=== PATIENT | female | born 1940 | race Caucasian/White ===

== ENCOUNTER 2018-01-26 19:42 | Inpatient (IN) | payer MEDICARE, OTHER, SELFPAY ==
[2018-01-26 19:43] VITALS: BP 98/47; PULSE 90; RESP 20; TEMP 38; O2SAT 90; BMI 39.6
[2018-01-26 20:29] VITALS: O2SAT 97
--- NOTE | 2018-01-26 21:18 | EKG12_ITS ---
Test Reason : FEVER Blood Pressure : / mmHG Vent. Rate : 098 BPM Atrial Rate : 098 BPM P-R Int : 186 ms QRS Dur : 096 ms QT Int : 350 ms P-R-T Axes : 056 061 049 degrees QTc Int : 446 ms Normal sinus rhythm Low voltage QRS Borderline ECG Confirmed by ALEKSANDAR PRYOR, BRETT ([id number]), editor map LEON DURAN ([id number]) on 01/28/2018 3:16:36 PM Referred By: DAYNA Confirmed By:BRETT HUERTAS MD
--- NOTE | 2018-01-26 21:20 | ED.VISSUMM ---
- ER Visit Summary Date of Service: 01/26/18 Chief Complaint: Fever, shortness of breath History of Present Illness: The patient is a 77 F presenting with fever, shortness of breath, cough. She has been ill for the past 4-5 days. She has a productive cough. She denies chest pain. On arrival to the ED her pulse ox was low. She has a history of CHF, hypertension, hypercholesterolemia. She is not on home O2. Physical Examination: Vitals are stable. Temperature 100.4. Pulse ox 88-90% on room air. Alert no acute distress. HEENT exam is unremarkable. Neck is supple. Lungs are wheezing bilaterally. Heart is regular rate and rhythm. Abdomen is soft nontender nondistended. Skin is warm and dry. No focal neurologic deficit. Remainder of exam is unremarkable. Emergency Department Course and Treatment: Patient was given albuterol and Atrovent aerosols. She is given Tylenol. Chest x-ray shows mild congestion, cardiomegaly. EKG is sinus rate of 98 with no acute ischemic changes. CBC shows a white count 13.4. Glucose 143. Troponin is negative. BNP 118.1. Lactic acid is normal. Influenza negative. Blood cultures are sent. CTA chest shows no PE or dissection, pneumonia left lower lobe. She is given Rocephin and Zithromax IV. Discussed with Dr. Herr for admission. Disposition: Admission Impression: Community acquired pneumonia, hypoxia This note was generated with [email or web address] dictation software. It may contain incorrect words, spelling, and punctuation that were not noted in review of the chart prior to signing ED Disposition - Plan for ED Patient: Chief Complaint: Fever Referrals: Momo Carvajal Chi, MD [Primary Care Provider] -
[2018-01-26 21:30] VITALS: PULSE 109; RESP 18; O2SAT 96
[2018-01-26] MEDS: Albuterol 2.5 MG/3 ML VIAL.NEB. INHALATION (21:30)
[2018-01-26] MEDS: Ipratropium/Albuterol Sulfate 3 ML AMPUL.NEB INHALATION (21:30)
--- NOTE | 2018-01-26 21:30 | RAD_ITS ---
STUDY: X-RAY CHEST REASON FOR EXAM: Female, 77 years old. Fever, cough TECHNIQUE: Single AP portable view of the chest. COMPARISON: None. FINDINGS: The lungs are expanded. Pulmonary vascular congestion. There is no demonstrated pleural abnormality. There is mild cardiac enlargement. Normal mediastinum and fouzia. Normal visualized pulmonary arteries. Normal visualized aortic arch and descending thoracic aorta. Normal visualized thoracic spine. Normal visualized ribs, clavicles, and shoulders. There is no demonstrated abnormality of the visualized soft tissue structures of the upper abdomen. RAD/Chest 1 View (Portable) IMPRESSION: Mild pulmonary vascular congestion. Mild cardiomegaly. Electronically Signed: Vincent Hidalgo DO at 22:10 EDT , Service support ,
[2018-01-26 21:54] VITALS: O2SAT 97
[2018-01-26 22:02] LABS: Absolute Lymphocyte Count 1.52 X10^3/ul (0.83-4.51); Absolute Neutrophil Count 10.7 X10^3/uL (2.0-7.7); Basophil# 0.02 X10^3/uL; Basophil% 0.1 % (0-1); Eosinophil# 0.17 X10^3/uL; Eosinophils% 1.3 % (0-5); Hematocrit 36.4 % (37-47); Hemoglobin 11.4 g/dl (12.0-15.0); Lymphocyte # 1.52 X10^3/ul (4.0); Lymphocyte % 11.2 % (19-41); Mean Corp Hgb Conc 31.3 g/gl (32-36); Mean Corpuscular Hgb 29.8 pg (27.0-32.0); Mean Platelet Vol. 9.7 fl (6.2-12.0); Monocyte# 1.15 X10^3/uL; Monocyte% 8.5 % (0-10); Neutrophil # 10.67 X10^3/uL (2.7-7.7); Neutrophil % 78.8 % (47-70); Platelet Count 342 K/mm3 (150-450); RBC Distribution Width CV 14.8 % (11.6-14.6); RBC Distribution Width SD 50.2 fl (35.1-43.9); Red Blood Count 3.83 M/mm3 (4.2-5.4); White Blood Count 13.6 K/mm3 (4.4-11.0)
[2018-01-26 22:03] LABS: POSITIVE COUNT NO; POSITIVE DIFFERENTIAL NO; POSITIVE MORPHOLOGY NO
[2018-01-26 22:04] LABS: Color, Urine Straw (Yellow); Glucose, Dipstick Normal (Normal); Ketone-Dipstick Negative (Negative); Leukocyte Esterase-Dipstick 500 /ul (Negative); Nitrite-Dipstick Negative (Negative); Occult Blood-Urine Negative /ul (Negative); Protein-Dipstick 30 mg/dl (Negative); Specific Gravity, Urine 1.005 (1.002-1.030); Urine Bilirubin Dipstick Negative (Negative); Urine Clarity Clear (Clear); Urine Urobilinogen Normal (Normal)
[2018-01-26 22:18] LABS: Anion Gap 9 (5-15); BUN 14 mg/dL (7-18); BUN/Creat Ratio 27.3 RATIO (10-20); Calcium,Total 8.5 mg/dL (8.5-10.1); Chloride 100 mmol/L (98-107); Creatinine, Serum 0.51 mg/dL (0.55-1.02); EST Glomerular Filtration Rate 124 mL/min (>60); Est Glom Filt Rate - Afr Amer 150 mL/min (>60); Estimated Creatinine Clearance 66.13 ml/min; Glucose 143 mg/dL (74-106); Potassium 4.1 mmol/L (3.5-5.1); Sodium Level 138 mmol/L (136-145)
[2018-01-26 22:24] LABS: Lactic Acid 1.1 mmol/L (0.4-2.0)
[2018-01-26 22:35] VITALS: BP 134/114; PULSE 103; RESP 20; O2SAT 95
[2018-01-26] MEDS: Acetaminophen 500 MG Tablet 1000 MG PO (22:46)
[2018-01-26 23:06] LABS: BNP,B-Type NATRIURETIC PEPTIDE 118.1 pg/mL (0-100)
--- NOTE | 2018-01-26 23:19 | CT_ITS ---
STUDY: CTA CHEST REASON FOR EXAM: Female, 77 years old. Cough and fever RADIATION DOSAGE (If Supplied By Facility): CTDIvol = ( 17.57 ) mGy, DLP = ( 628.57 ) mGycm TECHNIQUE: The examination was performed with the intravenous administration of 100ML ml of Isovue 370 contrast material. Post-processing of the angiographic images was performed, with multiplanar reformation and 3D reconstruction. Individualized dose optimization techniques were used for this CT. COMPARISON: None. FINDINGS: Normal enhancement of the main pulmonary artery and right and left pulmonary arteries. Normal enhancement of the bilateral peripheral pulmonary arteries. There is no demonstrated pulmonary embolism. Normal thoracic aorta and visualized great vessels. There is no demonstrated aortic dissection. Normal heart and pericardium. Normal mediastinum. Normal hilar regions. Normal visualized trachea and bronchi. There is partial consolidation of the left lung lower lobe suggesting pneumonia. Segmental atelectasis are noted in both lungs. Normal pleura. Normal chest wall structures. There are degenerative changes of thoracic spine. There is mild fatty infiltration of the liver.. CT/CTA Chest W/WO Contrast IMPRESSION: No demonstrated pulmonary embolism or arterial dissection. Pneumonia in the left lower lobe. Electronically Signed: Bonnie Torres MD at 1:35 EDT Tel , Service support ,
[2018-01-26 23:22] VITALS: BP 118/71; PULSE 108; RESP 25; O2SAT 95
[2018-01-27] VITALS (18 sets, daily range): BP systolic 84–138; BP diastolic 36–65; PULSE 79–99; RESP 16–25; TEMP 36.8–37.1; O2SAT 92–98; BMI 41.1; BMI 41.2
--- NOTE | 2018-01-27 01:49 | PCM.HP.STD ---
Problem List (1) HTN (hypertension) Status: Chronic Qualifiers: Hypertension type: essential hypertension Qualified Code(s): I10 - Essential (primary) hypertension (2) HLD (hyperlipidemia) Status: Chronic Qualifiers: Hyperlipidemia type: unspecified Qualified Code(s): E78.5 - Hyperlipidemia, unspecified (3) Arthrogryposis Status: Chronic (4) Single kidney Status: Chronic (5) Hypoxia Status: Acute (6) Pneumonia Status: Acute Qualifiers: Pneumonia type: due to unspecified organism Laterality: left Lung location: lower lobe of lung Qualified Code(s): J18.1 - Lobar pneumonia, unspecified organism (7) Sepsis Status: Acute Qualifiers: Sepsis type: sepsis due to unspecified organism Qualified Code(s): A41.9 - Sepsis, unspecified organism (8) Morbid obesity with BMI of 40.0-44.9, adult Status: Chronic History of Present Illness Date of Admission: 01/27/18 Chief Complaint: Cough, Fever, Dyspnea The patient is a 77 y/o F w/ PMHx: HTN, HLD, Morbid Obesity, Arthrogryposis w/ usage of BL LE braces and several BL UE and BL LE surgeries in her youth, Single kidney s/p nephrectomy who presents to the [facility] ED on 01/27/18 w/ ongoing fever, chills, dyspnea, minimally productive cough as well as sore throat x 3-4 days, not improving with OTC flu and cold regimen. In the ED work-up included T 100.4--> 98.7, HR 109-->89, BP 98/47, initially 88-89% on RA-->97% on 3L NC, RR 20s, CBC w/ WBC 13.6, Hgb 11.4, Plts 342 with L shift, BMP w/ BUN/Cr 14/0.51, glucose 143, trop < 0.02, LA 1.1, BNP 118.1, UA not marked, EKG w/ SR, CXR with ? congestion, CTPA w/ no acute PE but noted LLL PNA. In the ED patient administered NS, rocephin, azithromycin, duoneb, albuterol, tylenol. Past Medical History Past Medical History (Chronic Problems): Chronic Problems HTN (hypertension) (Chronic) HLD (hyperlipidemia) (Chronic) Arthrogryposis (Chronic) Single kidney (Chronic) Morbid obesity with BMI of 40.0-44.9, adult (Chronic) Allergies No Known Allergies Allergy (Verified 01/26/18 19:43) Home Medications: Ambulatory Orders Medication Instructions Recorded Aspirin [Aspirin, Baby] 81 mg PO DAILY@0800 07/12/15 Atorvastatin Calcium [Lipitor] 80 mg PO QHS 07/12/15 Calcium Carb/Vitamin D 2 tab PO DAILY 07/12/15 [Caltrate-600 With Vit D Tab] Furosemide 40 mg PO DAILY 07/12/15 Lisinopril [Zestril] 5 mg PO 07/12/15 Potassium Chloride [K-Dur] 10 meq PO 4X/DAY 07/12/15 Dibucaine [Nupercainal] 56.7 gm RC 4X/DAY PRN PRN #1 09/28/15 oint...g. Benzonatate [Tessalon Perle] 100 mg PO TID PRN 01/26/18 Surgical History: - - R Nephrectomy, Minor Surgey on the L Kidney, notable BL UE and LE corrective surgeries in her youth. Psychiatric History: No pertinent psych hx FINANCIAL SERVICES EDUCATION CONSULTANT History: No pertinent FINANCIAL SERVICES EDUCATION CONSULTANT history Lives: Spouse/ Significant Other Smoking Status: Never smoker Tobacco Use: Non-smoker Alcohol: None Drugs: None - *Family History Maternal History Items: Heart Disease Paternal History Items: Heart Disease Review of Systems Constitutional: Reports: Anorexia, Chills, Fever, Malaise, Weakness, Fatigue. Denies: Weight Change HEENT: Reports: Nasal Congestion, Post Nasal Drip, Sinus Congestion, Sore Throat. Denies: Head Aches, Sinus Drainage Cardiovascular: Denies: Chest Pain, Palpitations Respiratory: Reports: Cough, Shortness of Breath, Shortness of breath at rest, Shortness of breath upon exertion, Sputum production Gastrointestinal: Denies: Abdominal Pain, Nausea, Vomiting Genitourinary: Denies: Dysuria Musculoskeletal: Reports: Joint Pain, Joint stiffness, Joint swelling, Joint Tenderness, Leg Pain Skin: Denies: Rash, Wounds Neurological: Denies: Numbness, Tingling, Focal weakness Psychiatric: Denies: Anxiety, Depression, Homicidal Ideations, Suicidal Ideations Hematologic/ Lymphatic: Reports: Anemia. Denies: Easy Bruising, Easy Bleeding VTE Information - Inpt Only VTE Present on Admission: No VTE Mechan Device Prophylaxis: SCD's VTE Pharm Prophylaxis ordered?: Yes Patient Problems: Active and Suspected Problems Hypoxia (Acute) Pneumonia (Acute) Sepsis (Acute) Subjective: Seated upright in the ED bed, NAD. Objective: Physical Examination: General: awake, alert, oriented x 3 and cooperative, seated upright in the ED bed in no apparent distress. Skin: normal color, turgor, no icterus, cyanosis. HEENT: AT/NC, EOMI, PERRLA, dry MM, no carotid bruits or JVD noted. Lungs: Diminished BS BL, > L, occasional soft expiratory wheeze, mild effort. Heart: Tachycardic with regular rhythm; no gallop, rub audible. Abdomen: soft, morbidly obese, NTTP, ND, normal BS, no HSM; however, habitus makes examination difficult. Extremities: no cyanosis, clubbing, BL LE and UE congenital deformities, s/p several surgical interventions. Neurological: patient awake, alert, oriented x 3; cognitive function intact; pupils equally reactive to light and accomodation; cranial nerves II-XII grossly normal, moving BL LE, severe limitations BL UE with severe BL LE and UE deformities, strength severely globally decreased secondary to acute presentation. Psychiatric: affect appears fatigued, no acute evidence of depressive or anxiety feelings. - Physical Exam Vital Signs Temp Pulse Resp BP Pulse Ox 98.7 F 92 25 H 109/60 96 01/27/18 00:17 01/27/18 01:13 01/27/18 01:13 01/27/18 01:13 01/27/18 01:13 Oxygen Flow Rate (L/min) 2 Oxygen Delivery Method Nasal Cannula Weight: 190 lb Body Mass Index (BMI) 39.6 Microbiology Past 72 Hours 01/26/18 21:24 Influenza Types A,B Direct FA (THERESA) - Final Mucosa - Nose Laboratory Tests Past 24 Hrs 01/26/18 01/26/18 01/26/18 21:15 21:45 21:45 WBC 13.6 H RBC 3.83 L Hgb 11.4 L Hct 36.4 L MCV 95.0 MCH 29.8 MCHC 31.3 L RDW 14.8 H RDW Differential 50.2 H Plt Count 342 MPV 9.7 Immature Gran % (Auto) 0.100 Neut % (Auto) 78.8 H Lymph % (Auto) 11.2 L Sum[place] % (Auto) 8.5 Eos % (Auto) 1.3 Baso % (Auto) 0.1 Absolute Neuts (auto) 10.7 H Absolute Lymphs (auto) 1.52 Total Counted Not Reportable Sodium 138 Potassium 4.1 Chloride 100 Carbon Dioxide 29.0 Anion Gap 9 BUN 14 Creatinine 0.51 L Estim Creat Clear Calc 66.13 Est GFR (MDRD) Af Amer 150 Est GFR (MDRD) Non-Af 124 BUN/Creatinine Ratio 27.3 H Glucose 143 H Lactic Acid Calcium 8.5 Troponin I < 0.02 B-Natriuretic Peptide Urine Color Straw Urine Clarity Clear Urine pH 7.0 Ur Specific [place] 1.005 Urine Protein 30 H Urine Glucose (UA) Normal Urine Ketones Negative Urine Occult Blood Negative Urine Nitrite Negative Urine Bilirubin Negative Urine Urobilinogen Normal Ur Leukocyte Esterase 500 H 01/26/18 01/26/18 21:45 21:45 WBC RBC Hgb Hct MCV MCH MCHC RDW RDW Differential Plt Count MPV Immature Gran % (Auto) Neut % (Auto) Lymph % (Auto) Sum[place] % (Auto) Eos % (Auto) Baso % (Auto) Absolute Neuts (auto) Absolute Lymphs (auto) Total Counted Sodium Potassium Chloride Carbon Dioxide Anion Gap BUN Creatinine Estim Creat Clear Calc Est GFR (MDRD) Af Amer Est GFR (MDRD) Non-Af BUN/Creatinine Ratio Glucose Lactic Acid 1.1 Calcium Troponin I B-Natriuretic Peptide 118.1 H Urine Color Urine Clarity Urine pH Ur Specific Roosevelt Urine Protein Urine Glucose (UA) Urine Ketones Urine Occult Blood Urine Nitrite Urine Bilirubin Urine Urobilinogen Ur Leukocyte Esterase Assessment/Plan Active and Suspected Problems Hypoxia (Acute) Pneumonia (Acute) Sepsis (Acute) The patient is a 77 y/o F w/ PMHx: HTN, HLD, Morbid Obesity, Arthrogryposis w/ usage of BL LE braces and several BL UE and BL LE surgeries in her youth, Single kidney s/p nephrectomy who presents to the [facility] ED on 01/27/18 w/ ongoing fever, chills, dyspnea, minimally productive cough as well as sore throat x 3-4 days, not improving with OTC flu and cold regimen. (1) Hypoxia, Sepsis secondary to Community Acquired: CTPA in the ED w/ LLL PNA. Admission CBC w/ WBC 13.6 with L shift. Will admit to PCU, maintain on oxygen with wean as tolerated to room air, continue ATC duonebs, PRN albuterol, maintained on IV Rocephin and Azithromycin, HOB, IS parameters w/ pending sputum cultures and urine antigens. Bld cx x 2 obtained in the ED. Will need to obtain oxygenation trial for discharge planning once appropriate. PT, OT, CM consultations given underlying co-morbidities which may complicate her recovery. (2) Hyperglycemia: Admission glucose 143, HgbA1c pending. (3) Hypertension: Maintain on home regimen lisinopril, lasix with hold parameters, PRN hydralazine. (4) Hyperlipidemia: Maintain on home statin regimen. (5) Single kidney Status s/p Prior R Nephrectomy: Admission BUN/Cr 14/0.51, trend, noted history of surgery on her L kidney as well. (6) Arthrogryposis: Usage of BL LE braces and several BL UE and BL LE surgeries in her youth, maintain on fall precautions, position changes frequently, PT and OT, CM consultations for discharge planning. (7) Morbid Obesity: Weight loss and lifestyle changes encouraged, nutrition consulted. (8) DVT Prophylaxis: SCDs, renally dosed lovenox. Code Visit Inpatient E&M: 18815 Init Hosp L3
[2018-01-27] MEDS: Ceftriaxone 1 GM/50 ML BAG IV (02:25)
[2018-01-27 04:24] LABS: Absolute Lymphocyte Count 1.45 X10^3/ul (0.83-4.51); Absolute Neutrophil Count 7.3 X10^3/uL (2.0-7.7); Basophil# 0.02 X10^3/uL; Basophil% 0.2 % (0-1); Eosinophil# 0.09 X10^3/uL; Eosinophils% 0.9 % (0-5); Hematocrit 32.2 % (37-47); Hemoglobin 10.1 g/dl (12.0-15.0); Lymphocyte # 1.45 X10^3/ul (4.0); Lymphocyte % 14.6 % (19-41); Mean Corp Hgb Conc 31.4 g/gl (32-36); Mean Corpuscular Hgb 30.1 pg (27.0-32.0); Mean Corpuscular Volume 96.1 fL (81-99); Mean Platelet Vol. 9.7 fl (6.2-12.0); Monocyte# 1.02 X10^3/uL; Monocyte% 10.3 % (0-10); Neutrophil # 7.31 X10^3/uL (2.7-7.7); Neutrophil % 73.8 % (47-70); Platelet Count 309 K/mm3 (150-450); RBC Distribution Width CV 14.5 % (11.6-14.6); RBC Distribution Width SD 48.2 fl (35.1-43.9); Red Blood Count 3.35 M/mm3 (4.2-5.4); White Blood Count 9.9 K/mm3 (4.4-11.0)
[2018-01-27 04:27] LABS: POSITIVE COUNT NO; POSITIVE DIFFERENTIAL NO; POSITIVE MORPHOLOGY NO
[2018-01-27 04:53] LABS: Magnesium 2.2 mg/dL (1.6-2.6)
[2018-01-27 05:12] LABS: Anion Gap 7 (5-15); BUN 15 mg/dL (7-18); BUN/Creat Ratio 30.9 RATIO (10-20); Calcium,Total 8.1 mg/dL (8.5-10.1); Chloride 99 mmol/L (98-107); Creatinine, Serum 0.49 mg/dL (0.55-1.02); EST Glomerular Filtration Rate 132 mL/min (>60); Est Glom Filt Rate - Afr Amer 160 mL/min (>60); Glucose 137 mg/dL (74-106); Potassium 3.8 mmol/L (3.5-5.1); Sodium Level 136 mmol/L (136-145)
[2018-01-27] MEDS: 0.9% Normal Saline 1,000 ML 125 ML IV (05:30)
[2018-01-27] MEDS: Ipratropium/Albuterol Sulfate 3 ML AMPUL.NEB INHALATION ×4 (06:40→19:29)
[2018-01-27] MEDS: Aspirin 81 MG TAB.CHEW PO (08:15)
[2018-01-27 08:39] LABS: Hemoglobin A1c 5.6 % (4.2-6.3)
[2018-01-27] MEDS: Famotidine 20 MG Tablet PO ×2 (10:32→21:06)
[2018-01-27] MEDS: Lisinopril 5 MG Tablet PO (10:32)
[2018-01-27] MEDS: guaiFENesin 1,200 MG Tablet 1200 MG PO ×2 (10:33→21:06)
[2018-01-27] MEDS: Furosemide 40 MG Tablet PO (10:33)
[2018-01-27] MEDS: BENZOCAINE/MENTHOL 1 LOZENGE MUCOUS MEM (10:52)
--- NOTE | 2018-01-27 13:15 | CASEMGMT ---
See RN CM assessment link. Pt plans to return home. Discussed Home Health, she is not sure she will need. is home to assist and is able to help with ADL's and transportation. Ceci ROMO RN ACM
[2018-01-27] MEDS: Benzonatate 100 MG Capsule 200 MG PO (18:21)
[2018-01-27] MEDS: Atorvastatin Calcium 80 MG Tablet PO (21:06)
[2018-01-28] VITALS (14 sets, daily range): BP systolic 92–107; BP diastolic 46–67; PULSE 81–109; RESP 20–31; TEMP 36.8–36.9; O2SAT 90–98
[2018-01-28] MEDS: Albuterol 2.5 MG/3 ML VIAL.NEB. INHALATION (02:05)
[2018-01-28 04:39] LABS: Absolute Lymphocyte Count 1.21 X10^3/ul (0.83-4.51); Absolute Neutrophil Count 7.5 X10^3/uL (2.0-7.7); Basophil# 0.02 X10^3/uL; Basophil% 0.2 % (0-1); Eosinophil# 0.26 X10^3/uL; Eosinophils% 2.6 % (0-5); Hematocrit 32.1 % (37-47); Lymphocyte # 1.21 X10^3/ul (4.0); Lymphocyte % 12.1 % (19-41); Mean Corp Hgb Conc 31.2 g/gl (32-36); Mean Corpuscular Hgb 30.2 pg (27.0-32.0); Mean Platelet Vol. 9.5 fl (6.2-12.0); Monocyte# 0.97 X10^3/uL; Monocyte% 9.7 % (0-10); Neutrophil # 7.53 X10^3/uL (2.7-7.7); Neutrophil % 75.1 % (47-70); POSITIVE COUNT NO; POSITIVE DIFFERENTIAL NO; POSITIVE MORPHOLOGY NO; Platelet Count 301 K/mm3 (150-450); RBC Distribution Width CV 14.9 % (11.6-14.6); RBC Distribution Width SD 50.7 fl (35.1-43.9); Red Blood Count 3.31 M/mm3 (4.2-5.4)
[2018-01-28] MEDS: Benzonatate 100 MG Capsule 200 MG PO (04:56)
--- NOTE | 2018-01-28 05:55 | RAD_ITS ---
STUDY: X-RAY CHEST REASON FOR EXAM: Female, 77 years old. Cough. TECHNIQUE: Single AP portable view of the chest. COMPARISON: Comparison is made with prior study dated January 26, 2018. FINDINGS: EKG electrodes are seen. Is evidence of vascular congestion and mild CHF. This has progressed as compared to prior study. There is no demonstrated pleural abnormality. There is moderate cardiac enlargement. Normal mediastinum and fouzia. Normal visualized pulmonary arteries. There is atherosclerotic tortuosity of the aortic arch and descending thoracic aorta. Normal visualized thoracic spine. Normal visualized ribs, clavicles, and shoulders. There is no demonstrated abnormality of the visualized soft tissue structures of the upper abdomen. RAD/Chest 1 View (Portable) IMPRESSION: Cardiomegaly and progressive CHF. Electronically Signed: Angel Kyle MD at 8:55 EDT Tel [phone], Service support ,
[2018-01-28] MEDS: Ipratropium/Albuterol Sulfate 3 ML AMPUL.NEB INHALATION ×3 (06:48→15:14)
[2018-01-28] MEDS: Aspirin 81 MG TAB.CHEW PO (08:22)
--- NOTE | 2018-01-28 10:09 | PCM.CONS.GEN ---
Problem List (1) Pneumonia Status: Acute Qualifiers: Pneumonia type: due to unspecified organism Laterality: left Lung location: lower lobe of lung Qualified Code(s): J18.1 - Lobar pneumonia, unspecified organism (2) HTN (hypertension) Status: Chronic Qualifiers: Hypertension type: essential hypertension Qualified Code(s): I10 - Essential (primary) hypertension (3) HLD (hyperlipidemia) Status: Chronic Qualifiers: Hyperlipidemia type: unspecified Qualified Code(s): E78.5 - Hyperlipidemia, unspecified (4) Arthrogryposis Status: Chronic (5) Single kidney Status: Chronic (6) Morbid obesity with BMI of 40.0-44.9, adult Status: Chronic Reason for Consult Date of Consultation: 01/28/18 Reason for Consultation: abnormal chest x-ray History of Present Illness: The patient is a 77 year old F past medical history as below who presented to the ED on 01/26/18 with complaints of fever 100.5?F, increased shortness of breath, and productive cough for the last 4-5 days. Also had a severe sore throat. Denied any chills. Patient reports her cough is chronic, however she did have an increase in sputum production of clear to yellow. Patient states I should have waited to go to see Dr. Carvajal because he typically gives her a steroid injection and taper for this kind of illness, she gets it twice a year. Patient states she got pneumonia secondary to using cough medicine. Patient denies any recent sick contacts, hospitalizations, or steroid bursts. She complains of some intermittent wheezing, but overall her shortness of breath has improved. Patient is debilitated secondary to arthrogryposis and wears leg braces to ambulate. She denies any history of chronic lung disease. She has been a non-smoker her entire life. She has never required pulmonary workup, no previous pulmonary function tests. Patient was placed on an albuterol nebulizer by her PCP to use as needed during illness. She typically uses this throughout the winter. She has been using it every 4-6 hours at home. She denies any other inhaler use. She denies any occupational exposures, no tuberculosis or asbestos. Initial vital signs BP 98/47, pulse 90, RR 20, temp 100.4?F, and 90% on room air. Patient was then 88% on room air and was placed on 3 L of oxygen and recovered to 97%. Initial blood work showing leukocytosis of 13,600, hemoglobin 11.4, normal BUN of 14 and creatinine 0.51. BNP 118. Urinalysis not indicating infection. Initial chest x-ray showed mild pulmonary vascular congestion and mild cardiomegaly. CTA of the chest was obtained to rule out PE, there was no demonstrated PE or arterial dissection, partial consolidation was noted in the left lower lobe. She was placed on antibiotics and given aerosols and Tylenol for her fever. Blood cultures obtained and are pending. Urine strep/Legionella was negative. Respiratory viral panel negative. Preliminary sputum culture showing normal respiratory yesika. Patient is was admitted to the floor for further evaluation and management. The patient has been weaned to room air and is saturating 96%. She denies any current shortness of breath. She has refused physical therapy, states she can walk on her own. Patient has been receiving scheduled DuoNeb aerosols with PRN albuterol. She has tried taking Tessalon Perle for cough. Patient receiving Rocephin for presumed pneumonia. She is on her baseline diuretic therapy. Her sore throat has significantly improved. She would like to have steroids and go home. Past Medical History Past Medical History (Chronic Problems): Chronic Problems HTN (hypertension) (Chronic) HLD (hyperlipidemia) (Chronic) Arthrogryposis (Chronic) Single kidney (Chronic) Morbid obesity with BMI of 40.0-44.9, adult (Chronic) Allergies No Known Allergies Allergy (Verified 01/26/18 19:43) Home Medications: Ambulatory Orders Medication Instructions Recorded Aspirin [Aspirin, Baby] 81 mg PO DAILY@0800 07/12/15 Atorvastatin Calcium [Lipitor] 80 mg PO QHS 07/12/15 Calcium Carb/Vitamin D 2 tab PO DAILY 07/12/15 [Caltrate-600 With Vit D Tab] Furosemide 40 mg PO DAILY 07/12/15 Lisinopril [Zestril] 5 mg PO 07/12/15 Potassium Chloride [K-Dur] 10 meq PO 4X/DAY 07/12/15 Dibucaine [Nupercainal] 56.7 gm RC 4X/DAY PRN PRN #1 09/28/15 oint...g. Benzonatate [Tessalon Perle] 100 mg PO TID PRN 01/26/18 Surgical History: - - R Nephrectomy, Minor Surgey on the L Kidney, notable BL UE and LE corrective surgeries in her youth. Psychiatric History: No pertinent psych hx NETWORK SUPPORT MANAGER History: No pertinent NETWORK SUPPORT MANAGER history Lives: Spouse/ Significant Other Smoking Status: Never smoker Tobacco Use: Non-smoker Alcohol: None Drugs: None - *Family History Maternal History Items: Heart Disease Paternal History Items: Heart Disease Review of Systems Constitutional: Reports: Fever. Denies: Anorexia, Chills Eyes: Denies: Vision Change HEENT: Reports: Post Nasal Drip, Sinus Congestion, Sore Throat. Denies: Difficulty Swallowing, Nasal Congestion, Sinus Drainage Cardiovascular: Reports: Edema - resolved, Orthopnea. Denies: Chest Pain, Chest Tightness, Light Headedness, Palpitations, Paroxysmal Noc. Dyspnea, Syncope Respiratory: Reports: Cough - chronic, Shortness of breath upon exertion. Denies: Hemoptysis, Shortness of breath at rest Gastrointestinal: Denies: Abdominal Pain, Constipation, Diarrhea, Dyspepsia, Hematemesis, Hematochezia, Nausea, Melena, Vomiting Genitourinary: Denies: Dysuria, Hematuria, Nocturia, Retention Musculoskeletal: Reports: Neck Pain - chronic. Denies: Back Pain, Muscle pain Skin: Denies: Dryness, Rash, Wounds Neurological: Reports: Balance problems - chronic. Denies: Change in Speech, Confusion, Difficulty swallowing, Focal weakness, Headaches, Numbness, Tingling, Tremor, Seizures Psychiatric: Denies: Anxiety, Depression Endocrine: Denies: Change in Body Habitus, Polydipsia, Polyuria Hematologic/ Lymphatic: Reports: Anemia. Denies: Adenopathy, Easy Bruising, Easy Bleeding, Hx of blood clot Patient Problems: Active and Suspected Problems Hypoxia (Acute) Pneumonia (Acute) Sepsis (Acute) Subjective: The patient was seen and examined. Her is at the bedside. She denies any current shortness of breath, chest discomfort, dizziness, or pain. She does have a persistent cough, but states this is chronic for her. She is still coughing up some clear to yellow sputum, however this has improved. Objective: Clinical Impression(s) from Imaging Studies Chest X-Ray 01/26/18 21:30 IMPRESSION: Mild pulmonary vascular congestion. Mild cardiomegaly. Electronically Signed: Vincent Hidalog DO at 22:10 EDT , Service support , Chest CTA 01/26/18 23:19 IMPRESSION: No demonstrated pulmonary embolism or arterial dissection. Pneumonia in the left lower lobe. Electronically Signed: Bonnie Torres MD at 1:35 EDT Tel , Service support , Chest X-Ray 01/28/18 05:55 IMPRESSION: Cardiomegaly and progressive CHF. Electronically Signed: Angel Kyle MD at 8:55 EDT Tel [phone], Service support , - Physical Exam General: Alert, Oriented x3, Cooperative, No apparent distress, Well developed, Well nourished HEENT: Atraumatic, PERRLA, Normocephalic Oral: Moist Mucosa, No Gingival or Mucosal Lesions/ Ulcerations, - - Mild thrush Neck: Supple, No JVD, No Nodes, Trachea Midline, - - Congenital spinal deformities, large neck circumference Lungs: Diminished, - - Minimal rhonchi, expiratory wheeze with forced expiration. No dullness to percussion and symmetric expansion. Minimal rales to L base that clear with cough. Cardiovascular: Regular rate, Regular Rhythm, Normal S1, Normal S2, Gallops Abdomen: Bowel Sounds Present, Soft, Non Tender, Obese Extremities: No clubbing, No cyanosis, No edema, Diminished Peripheral Pulses, - - multiple deformities with contracted UEs. Leg shortening Skin: No rashes, No breakdown Musculoskeletal: No Tenderness to Palpation of Joints or Extremities, - - generalized muscle atrophy Lymphatic: No Cervical, Supraclavicular, or Inguinal Adenopathy Neurological: Cranial nerves II-XII grossly intact, Neuro grossly intact, Motor Exam 5/5 strength throughout Psych/Mental Status: Alert and oriented to time, place, person, mood and affect Vital Signs Temp Pulse Resp BP Pulse Ox 98.5 F 96 20 H 94/55 L 96 01/28/18 08:00 01/28/18 08:00 01/28/18 08:00 01/28/18 08:00 01/28/18 08:00 Oxygen Flow Rate (L/min) 2 Oxygen Delivery Method Room Air Weight: 197 lb 1.492 oz Body Mass Index (BMI) 41.1 Intake and Output for Last 24 Hours 01/26/18 01/27/18 01/28/18 23:59 23:59 23:59 Intake Total 2469.5 / 2469.5 240 / 240 Balance 2469.5 / 2469.5 240 / 240 Microbiology Past 72 Hours 01/27/18 15:10 Gram Stain - Final Sputum, Expectorated/Coughed Respiratory Culture - Preliminary Appears to be normal respiratory yesika. Further studies to follow. Laboratory Tests Past 24 Hrs 01/28/18 01/28/18 04:25 04:25 WBC 10.0 RBC 3.31 L Hgb 10.0 L Hct 32.1 L MCV 97.0 MCH 30.2 MCHC 31.2 L RDW 14.9 H RDW Differential 50.7 H Plt Count 301 MPV 9.5 Immature Gran % (Auto) 0.300 Neut % (Auto) 75.1 H Lymph % (Auto) 12.1 L [place] % (Auto) 9.7 Eos % (Auto) 2.6 Baso % (Auto) 0.2 Absolute Neuts (auto) 7.5 Absolute Lymphs (auto) 1.21 Total Counted Not Reportable B-Natriuretic Peptide 65.0 Assessment/Plan Active and Suspected Problems Hypoxia (Acute) Pneumonia (Acute) Sepsis (Acute) RECOMMENDATIONS 1. Wean oxygen supplementation to keep saturations greater than 89%. 2. Encourage incentive spirometer/Acapella 3. Increase activity as tolerated 4. Continue scheduled Duonebs with PRN albuterol 5. Continue antibiotics, await final sputum and blood cultures 6. Ambulatory pulse ox prior to discharge, if able 7. Consider escalating diuretic therapy if respiratory status declines, however caution with single kidney 8. No indication for steroids at this time 9. Patient will likely be ready for discharge in the next 24-48 hours IMPRESSIONS 1. Acute hypoxic respiratory insufficiency secondary to community-acquired pneumonia Improved, patient now maintaining saturations on room air. CTA of the chest 01/26 did show a consolidation in left lower lobe. There is no demonstrated PE or dissection. Repeat chest x-ray 01/28 showed worsening cardiomegaly and progressive CHF. Patient also likely has element of atelectasis/compression secondary to her arthrogryposis/congenital abnormalities. It is difficult for her to take deep breaths, but denies shortness of breath. She has no wheezing except with forced expiration. She is mildly hypotensive, unsure of her baseline blood pressure readings. She has remained afebrile and leukocytosis has resolved. Would continue with antibiotics for infiltrates and scheduled aerosols. Await infectious workup. If able, can obtain ambulatory pulse ox prior to discharge to assess for exertional hypoxia. Supplemental oxygen to keep saturations greater than 89%. 2. Hypertension/hyperlipidemia/arthrogryposis/single kidney/morbid obesity and debility Complicates care, management, recovery, and prognosis. Likely okay to continue home medications. Lovenox and SCDs for DVT prophylaxis. Patient has been refusing physical therapy, states it is complicated for her to ambulate and she would rather do on her own. Thank you for the opportunity to participate in this patient's care, please do not hesitate to contact us with any further questions or concerns. This note was generated with [employer] dictation software. It may contain incorrect words, spelling, and punctuation that were not noted in checking the note before signing.
--- NOTE | 2018-01-28 10:24 | CON.PCM_ITS ---
Problem List (1) Pneumonia Status: Acute Qualifiers: Pneumonia type: due to unspecified organism Laterality: left Lung location: lower lobe of lung Qualified Code(s): J18.1 - Lobar pneumonia, unspecified organism (2) HTN (hypertension) Status: Chronic Qualifiers: Hypertension type: essential hypertension Qualified Code(s): I10 - Essential (primary) hypertension (3) HLD (hyperlipidemia) Status: Chronic Qualifiers: Hyperlipidemia type: unspecified Qualified Code(s): E78.5 - Hyperlipidemia , unspecified (4) Arthrogryposis Status: Chronic (5) Single kidney Status: Chronic (6) Morbid obesity with BMI of 40.0-44.9, adult Status: Chronic Reason for Consult Date of Consultation: 01/28/18 Reason for Consultation: abnormal chest x-ray History of Present Illness: The patient is a 77 year old F past medical history as below who presented to the ED on 01/26/18 with complaints of fever 100.5?F, increased shortness of breath, and productive cough for the last 4-5 days. Also had a severe sore throat. Denied any chills. Patient reports her cough is chronic, however she did have an increase in sputum production of clear to yellow. Patient states I should have waited to go to see Dr. Carvajal because he typically gives her a steroid injection and taper for this kind of illness, she gets it twice a year. Patient states she got pneumonia secondary to using cough medicine. Patient denies any recent sick contacts, hospitalizations, or steroid bursts. She complains of some intermittent wheezing, but overall her shortness of breath has improved. Patient is debilitated secondary to arthrogryposis and wears leg braces to ambulate. She denies any history of chronic lung disease. She has been a non-smoker her entire life. She has never required pulmonary workup, no previous pulmonary function tests. Patient was placed on an albuterol nebulizer by her PCP to use as needed during illness. She typically uses this throughout the winter. She has been using it every 4-6 hours at home. She denies any other inhaler use. She denies any occupational exposures, no tuberculosis or asbestos. Initial vital signs BP 98/47, pulse 90, RR 20, temp 100.4?F, and 90% on room air. Patient was then 88% on room air and was placed on 3 L of oxygen and recovered to 97%. Initial blood work showing leukocytosis of 13,600, hemoglobin 11.4, normal BUN of 14 and creatinine 0.51. BNP 118. Urinalysis not indicating infection. Initial chest x-ray showed mild pulmonary vascular congestion and mild cardiomegaly. CTA of the chest was obtained to rule out PE , there was no demonstrated PE or arterial dissection, partial consolidation was noted in the left lower lobe. She was placed on antibiotics and given aerosols and Tylenol for her fever. Blood cultures obtained and are pending. Urine strep/Legionella was negative. Respiratory viral panel negative. Preliminary sputum culture showing normal respiratory yesika. Patient is was admitted to the floor for further evaluation and management. The patient has been weaned to room air and is saturating 96%. She denies any current shortness of breath. She has refused physical therapy, states she can walk on her own. Patient has been receiving scheduled DuoNeb aerosols with PRN albuterol. She has tried taking Tessalon Perle for cough. Patient receiving Rocephin for presumed pneumonia. She is on her baseline diuretic therapy. Her sore throat has significantly improved. She would like to have steroids and go home. Past Medical History Past Medical History (Chronic Problems): Chronic Problems HTN (hypertension) (Chronic) HLD (hyperlipidemia) (Chronic) Arthrogryposis (Chronic) Single kidney (Chronic) Morbid obesity with BMI of 40.0-44.9, adult (Chronic) Allergies No Known Allergies Allergy (Verified 01/26/18 19:43) Home Medications: Ambulatory Orders Medication Instructions Recorded Aspirin [Aspirin, Baby] 81 mg PO DAILY@0800 07/12/15 Atorvastatin Calcium [Lipitor] 80 mg PO QHS 07/12/15 Calcium Carb/Vitamin D 2 tab PO DAILY 07/12/15 [Caltrate-600 With Vit D Tab] Furosemide 40 mg PO DAILY 07/12/15 Lisinopril [Zestril] 5 mg PO 07/12/15 Potassium Chloride [K-Dur] 10 meq PO 4X/DAY 07/12/15 Dibucaine [Nupercainal] 56.7 gm RC 4X/DAY PRN PRN #1 09/28/15 oint...g. Benzonatate [Tessalon Perle] 100 mg PO TID PRN 01/26/18 Surgical History: - - R Nephrectomy, Minor Surgey on the L Kidney, notable BL UE and LE corrective surgeries in her youth. Psychiatric History: No pertinent psych hx ADMINISTRATIVE COURT JUSTICE History: No pertinent ADMINISTRATIVE COURT JUSTICE history Lives: Spouse/ Significant Other Smoking Status: Never smoker Tobacco Use: Non-smoker Alcohol: None Drugs: None - *Family History Maternal History Items: Heart Disease Paternal History Items: Heart Disease Review of Systems Constitutional: Reports: Fever. Denies: Anorexia, Chills Eyes: Denies: Vision Change HEENT: Reports: Post Nasal Drip, Sinus Congestion, Sore Throat. Denies: Difficulty Swallowing, Nasal Congestion, Sinus Drainage Cardiovascular: Reports: Edema - resolved, Orthopnea. Denies: Chest Pain, Chest Tightness, Light Headedness, Palpitations, Paroxysmal Noc. Dyspnea, Syncope Respiratory: Reports: Cough - chronic, Shortness of breath upon exertion. Denies: Hemoptysis, Shortness of breath at rest Gastrointestinal: Denies: Abdominal Pain, Constipation, Diarrhea, Dyspepsia, Hematemesis, Hematochezia, Nausea, Melena, Vomiting Genitourinary: Denies: Dysuria, Hematuria, Nocturia, Retention Musculoskeletal: Reports: Neck Pain - chronic. Denies: Back Pain, Muscle pain Skin: Denies: Dryness, Rash, Wounds Neurological: Reports: Balance problems - chronic. Denies: Change in Speech, Confusion, Difficulty swallowing, Focal weakness, Headaches, Numbness, Tingling , Tremor, Seizures Psychiatric: Denies: Anxiety, Depression Endocrine: Denies: Change in Body Habitus, Polydipsia, Polyuria Hematologic/ Lymphatic: Reports: Anemia. Denies: Adenopathy, Easy Bruising, Easy Bleeding, Hx of blood clot Patient Problems: Active and Suspected Problems Hypoxia (Acute) Pneumonia (Acute) Sepsis (Acute) Subjective: The patient was seen and examined. Her is at the bedside. She denies any current shortness of breath, chest discomfort, dizziness, or pain. She does have a persistent cough, but states this is chronic for her. She is still coughing up some clear to yellow sputum, however this has improved. Objective: Clinical Impression(s) from Imaging Studies Chest X-Ray 01/26/18 21:30 IMPRESSION: Mild pulmonary vascular congestion. Mild cardiomegaly. Electronically Signed: Vincent Hidalgo DO at 22:10 EDT , Service support , Chest CTA 01/26/18 23:19 IMPRESSION: No demonstrated pulmonary embolism or arterial dissection. Pneumonia in the left lower lobe. Electronically Signed: Bonnie Torres MD at 1:35 EDT Tel , Service support , Chest X-Ray 01/28/18 05:55 IMPRESSION: Cardiomegaly and progressive CHF. Electronically Signed: Angel Kyle MD at 8:55 EDT Tel [phone], Service support , - Physical Exam General: Alert, Oriented x3, Cooperative, No apparent distress, Well developed, Well nourished HEENT: Atraumatic, PERRLA, Normocephalic Oral: Moist Mucosa, No Gingival or Mucosal Lesions/ Ulcerations, - - Mild thrush Neck: Supple, No JVD, No Nodes, Trachea Midline, - - Congenital spinal deformities, large neck circumference Lungs: Diminished, - - Minimal rhonchi, expiratory wheeze with forced expiration. No dullness to percussion and symmetric expansion. Minimal rales to L base that clear with cough. Cardiovascular: Regular rate, Regular Rhythm, Normal S1, Normal S2, Gallops Abdomen: Bowel Sounds Present, Soft, Non Tender, Obese Extremities: No clubbing, No cyanosis, No edema, Diminished Peripheral Pulses, - - multiple deformities with contracted UEs. Leg shortening Skin: No rashes, No breakdown Musculoskeletal: No Tenderness to Palpation of Joints or Extremities, - - generalized muscle atrophy Lymphatic: No Cervical, Supraclavicular, or Inguinal Adenopathy Neurological: Cranial nerves II-XII grossly intact, Neuro grossly intact, Motor Exam 5/5 strength throughout Psych/Mental Status: Alert and oriented to time, place, person, mood and affect Vital Signs Temp Pulse Resp BP Pulse Ox 98.5 F 96 20 H 94/55 L 96 01/28/18 08:00 01/28/18 08:00 01/28/18 08:00 01/28/18 08:00 01/28/18 08:00 Oxygen Flow Rate (L/min) 2 Oxygen Delivery Method Room Air Weight: 197 lb 1.492 oz Body Mass Index (BMI) 41.1 Intake and Output for Last 24 Hours 01/26/18 01/27/18 01/28/18 23:59 23:59 23:59 Intake Total 2469.5 / 2469.5 240 / 240 Balance 2469.5 / 2469.5 240 / 240 Microbiology Past 72 Hours 01/27/18 15:10 Gram Stain - Final Sputum, Expectorated/Coughed Respiratory Culture - Preliminary Appears to be normal respiratory yesika. Further studies to follow. Laboratory Tests Past 24 Hrs 01/28/18 01/28/18 04:25 04:25 WBC 10.0 RBC 3.31 L Hgb 10.0 L Hct 32.1 L MCV 97.0 MCH 30.2 MCHC 31.2 L RDW 14.9 H RDW Differential 50.7 H Plt Count 301 MPV 9.5 Immature Gran % (Auto) 0.300 Neut % (Auto) 75.1 H Lymph % (Auto) 12.1 L [place] % (Auto) 9.7 Eos % (Auto) 2.6 Baso % (Auto) 0.2 Absolute Neuts (auto) 7.5 Absolute Lymphs (auto) 1.21 Total Counted Not Reportable B-Natriuretic Peptide 65.0 Assessment/Plan Active and Suspected Problems Hypoxia (Acute) Pneumonia (Acute) Sepsis (Acute) RECOMMENDATIONS 1. Wean oxygen supplementation to keep saturations greater than 89%. 2. Encourage incentive spirometer/Acapella 3. Increase activity as tolerated 4. Continue scheduled Duonebs with PRN albuterol 5. Continue antibiotics, await final sputum and blood cultures 6. Ambulatory pulse ox prior to discharge, if able 7. Consider escalating diuretic therapy if respiratory status declines, however caution with single kidney 8. No indication for steroids at this time 9. Patient will likely be ready for discharge in the next 24-48 hours IMPRESSIONS 1. Acute hypoxic respiratory insufficiency secondary to community-acquired pneumonia Improved, patient now maintaining saturations on room air. CTA of the chest did show a consolidation in left lower lobe. There is no demonstrated PE or dissection. Repeat chest x-ray 01/28 showed worsening cardiomegaly and progressive CHF. Patient also likely has element of atelectasis/compression secondary to her arthrogryposis/congenital abnormalities. It is difficult for her to take deep breaths, but denies shortness of breath. She has no wheezing except with forced expiration. She is mildly hypotensive, unsure of her baseline blood pressure readings. She has remained afebrile and leukocytosis has resolved. Would continue with antibiotics for infiltrates and scheduled aerosols. Await infectious workup. If able, can obtain ambulatory pulse ox prior to discharge to assess for exertional hypoxia. Supplemental oxygen to keep saturations greater than 89%. 2. Hypertension/hyperlipidemia/arthrogryposis/single kidney/morbid obesity and debility Complicates care, management, recovery, and prognosis. Likely okay to continue home medications. Lovenox and SCDs for DVT prophylaxis. Patient has been refusing physical therapy, states it is complicated for her to ambulate and she would rather do on her own. Thank you for the opportunity to participate in this patient's care, please do not hesitate to contact us with any further questions or concerns. This note was generated with [employer] dictation software. It may contain incorrect words, spelling, and punctuation that were not noted in checking the note before signing.
[2018-01-28] MEDS: Furosemide 40 MG Tablet PO (10:37)
[2018-01-28] MEDS: guaiFENesin 1,200 MG Tablet 1200 MG PO (10:38)
[2018-01-28] MEDS: Lisinopril 5 MG Tablet PO (10:38)
[2018-01-28] MEDS: Ceftriaxone 1 GM/50 ML BAG IV (10:45)
--- NOTE | 2018-01-28 11:47 | NURSING ---
resuming care of patient at 1145 received report from ceci burns
--- NOTE | 2018-01-28 16:08 | PCM.DC ---
- Discharge Diagnoses Current Active Problems: Current Active and Chronic Problems HTN (hypertension) (Chronic) HLD (hyperlipidemia) (Chronic) Arthrogryposis (Chronic) Single kidney (Chronic) Hypoxia (Acute) Pneumonia (Acute) Sepsis (Acute) Morbid obesity with BMI of 40.0-44.9, adult (Chronic) You will use the following diet at home:: No restrictions Your food should be the consistency of: Regular Your liquids should be the consistency of: Regular/Thin Discharge Activity: Return to Normal Activity Weight Bearing Status: - - resume normal activity level Allergies/Adverse Reactions: Allergies No Known Allergies Allergy (Verified 01/26/18 19:43) Medications to take at Discharge Aspirin [Aspirin, Baby] 81 mg PO DAILY@0800 07/12/15 Atorvastatin Calcium [Lipitor] 80 mg PO QHS 07/12/15 Calcium Carb/Vitamin D [Caltrate-600 With Vit D Tab] 2 tab PO DAILY 07/12/15 Furosemide 40 mg PO DAILY 07/12/15 Lisinopril [Zestril] 5 mg PO 07/12/15 Potassium Chloride [K-Dur] 10 meq PO 4X/DAY 07/12/15 Dibucaine [Nupercainal] 56.7 gm RC 4X/DAY PRN PRN #1 oint...g. 09/28/15 Benzonatate [Tessalon Perle] 100 mg PO TID PRN 01/26/18 Amoxicillin/Potassium Clav [Augmentin 875-125 Tablet] 1 ea PO BIDCM #10 tab 01/28/18 The following prescriptions were given: Amoxicillin/Potassium Clav [Augmentin 875-125 Tablet] 1 ea PO BIDCM #10 tab Primary Care Physician: Momo Carvajal Chi, MD [Primary Care Provider] - Please follow up with your Primary Care Physician in: in 1-2 weeks Please Follow Up With: Jerry Walton MD When: in 2 weeks-call for appointment
--- NOTE | 2018-01-30 18:48 | PCM.DC.SUM ---
Discharge Date and Diagnosis - Problem List Patient Problems: Active and Suspected Problems Shortness of breath (Acute) Date of Admission: 01/27/18 Date of Discharge: 01/28/18 - Primary Discharge Diagnosis Active and Suspected Problems #1 acute sepsis secondary to left lower lobe community-acquired tofxlhesr-uepk-acjcjcki bacterial #2 left lower lobe community-acquired goeunchom-oeop-tjzjhqbd bacterial #3 hypoxia secondary to atelectasis and left lower lobe community-acquired pneumonia #4 widespread atelectasis of the lungs #5 hypertension - Secondary Discharge Diagnosis Chronic Problems HTN (hypertension) (Chronic) HLD (hyperlipidemia) (Chronic) Arthrogryposis (Chronic) Single kidney (Chronic) Morbid obesity with BMI of 40.0-44.9, adult (Chronic) Hospital Course and Treatment Operations: None Procedures: None Summary of Care Provided: The patient is a 77 year old F who was seen in the emergency room at [facility] [place] with chief complaint of fever, shortness of breath, and cough over the past several days. Patient states she was coughing up yellow sputum. Evaluation in the emergency room included labs which showed an elevated white count of 13.4, troponin was unremarkable, beta natruretic peptide was 118, lactic acid was normal. Patient has a chest x-ray performed which showed mild congestion and cardiomegaly, CT of the chest did not show a PE but however did show a pneumonia in the left lower lobe. Patient was admitted to the general medical floor for acute sepsis secondary to community-acquired pneumonia suspect suspected to be secondary to gram positive bacteria, she was treated with IV Rocephin and Zithromax. Patient's chest x-ray the following day appeared worse, pulmonary medicine was consulted and felt the patient had an element of atelectasis. Repeat beta natruretic peptide was unremarkable. Patient's pulse ox was noted to be above 90% on room air. On 01/28/18, patient was seen and examined felt in stable condition for discharge home Discharge Activity: Return to Normal Activity Weight Bearing Status: - - resume normal activity level Home Medications: Medications to take at Discharge Aspirin [Aspirin, Baby] 81 mg PO DAILY@0800 07/12/15 Atorvastatin Calcium [Lipitor] 80 mg PO QHS 07/12/15 Calcium Carb/Vitamin D [Caltrate-600 With Vit D Tab] 2 tab PO DAILY 07/12/15 Furosemide 40 mg PO DAILY 07/12/15 Lisinopril [Zestril] 5 mg PO DAILY 07/12/15 Potassium Chloride [K-Dur] 10 meq PO 4X/DAY 07/12/15 Dibucaine [Nupercainal] 56.7 gm RC 4X/DAY PRN PRN #1 oint...g. 09/28/15 Benzonatate [Tessalon Perle] 100 mg PO TID PRN 01/26/18 Amoxicillin/Potassium Clav [Augmentin 875-125 Tablet] 1 ea PO BIDCM #10 tab 01/28/18 Following Prescrptions Were Given to Patient: Amoxicillin/Potassium Clav [Augmentin 875-125 Tablet] 1 ea PO BIDCM #10 tab Primary Care Physician: Momo Carvajal Chi, MD [Primary Care Provider] - Please follow up with your Primary Care Physician in: in 1-2 weeks Please Follow Up With: Jerry Walton MD When: in 2 weeks-call for appointment Disposition: Home Minutes spent on discharge:: 32 Patient Condition:: Stable Medical Necessity - Tobacco Use Smoking Status: Never smoker Tobacco Use: Non-smoker Meaningful Use Info Meaningful Use Diagnoses (Choose all that apply): None applicable Code Visit Inpatient E&M: 04478 Disch Hosp
--- NOTE | 2018-01-30 18:55 | DS.PCM_ITS ---
Discharge Date and Diagnosis - Problem List Patient Problems: Active and Suspected Problems Shortness of breath (Acute) Date of Admission: 01/27/18 Date of Discharge: 01/28/18 - Primary Discharge Diagnosis Active and Suspected Problems #1 acute sepsis secondary to left lower lobe community-acquired pneumonia-gram- positive bacterial #2 left lower lobe community-acquired kpnoyqxjg-ymry-zoxkqobz bacterial #3 hypoxia secondary to atelectasis and left lower lobe community-acquired pneumonia #4 widespread atelectasis of the lungs #5 hypertension - Secondary Discharge Diagnosis Chronic Problems HTN (hypertension) (Chronic) HLD (hyperlipidemia) (Chronic) Arthrogryposis (Chronic) Single kidney (Chronic) Morbid obesity with BMI of 40.0-44.9, adult (Chronic) Hospital Course and Treatment Operations: None Procedures: None Summary of Care Provided: The patient is a 77 year old F who was seen in the emergency room at [facility] with chief complaint of fever, shortness of breath, and cough over the past several days. Patient states she was coughing up yellow sputum. Evaluation in the emergency room included labs which showed an elevated white count of 13.4, troponin was unremarkable, beta natruretic peptide was 118, lactic acid was normal. Patient has a chest x-ray performed which showed mild congestion and cardiomegaly, CT of the chest did not show a PE but however did show a pneumonia in the left lower lobe. Patient was admitted to the general medical floor for acute sepsis secondary to community- acquired pneumonia suspect suspected to be secondary to gram positive bacteria, she was treated with IV Rocephin and Zithromax. Patient's chest x-ray the following day appeared worse, pulmonary medicine was consulted and felt the patient had an element of atelectasis. Repeat beta natruretic peptide was unremarkable. Patient's pulse ox was noted to be above 90% on room air. On , patient was seen and examined felt in stable condition for discharge home Discharge Activity: Return to Normal Activity Weight Bearing Status: - - resume normal activity level Home Medications: Medications to take at Discharge Aspirin [Aspirin, Baby] 81 mg PO DAILY@0800 07/12/15 Atorvastatin Calcium [Lipitor] 80 mg PO QHS 07/12/15 Calcium Carb/Vitamin D [Caltrate-600 With Vit D Tab] 2 tab PO DAILY 07/12/15 Furosemide 40 mg PO DAILY 07/12/15 Lisinopril [Zestril] 5 mg PO DAILY 07/12/15 Potassium Chloride [K-Dur] 10 meq PO 4X/DAY 07/12/15 Dibucaine [Nupercainal] 56.7 gm RC 4X/DAY PRN PRN #1 oint...g. 09/28/15 Benzonatate [Tessalon Perle] 100 mg PO TID PRN 01/26/18 Amoxicillin/Potassium Clav [Augmentin 875-125 Tablet] 1 ea PO BIDCM #10 tab Following Prescrptions Were Given to Patient: Amoxicillin/Potassium Clav [Augmentin 875-125 Tablet] 1 ea PO BIDCM #10 tab Primary Care Physician: Momo Carvajal Chi, MD [Primary Care Provider] - Please follow up with your Primary Care Physician in: in 1-2 weeks Please Follow Up With: Jerry Walton MD When: in 2 weeks-call for appointment Disposition: Home Minutes spent on discharge:: 32 Patient Condition:: Stable Medical Necessity - Tobacco Use Smoking Status: Never smoker Tobacco Use: Non-smoker Meaningful Use Info Meaningful Use Diagnoses (Choose all that apply): None applicable Code Visit Inpatient E&M: 72392 Disch Hosp
== END 2018-01-28 18:00 | disposition home or self-care (01) | DRG 871 ==
LOC: ED 21:23 → ICU 01-27 02:47
PROVIDERS: Admitting Provider Family Medicine; Emergency Provider Emergency Medicine; Family Provider Family Medicine Geriatric Medicine; PCP Family Medicine Geriatric Medicine; Visit Provider Internal Medicine
DX: A41.9 Sepsis, unspecified organism (principal); J15.9 Unspecified bacterial pneumonia; I11.0 Hypertensive heart disease with heart failure; R06.89 Other abnormalities of breathing; I50.9 Heart failure, unspecified; J98.11 Atelectasis; Z68.41 Body mass index [BMI] 40.0-44.9, adult; E66.01 Morbid (severe) obesity due to excess calories; E78.5 Hyperlipidemia, unspecified; Z79.899 Other long term (current) drug therapy; R09.02 Hypoxemia; Q68.8 Other specified congenital musculoskeletal deformities; Z90.5 Acquired absence of kidney
CPT/HCPCS: 71045; 71275; 80048; 81002; 83036; 83605; 83735; 83880; 84484; 85025; 87040; 87070; 87205; 87449; 87633; 87804; 93005; 94640; 94667; 94668; 97802; 99283; J7030; J7040; Q9967; A4216

== ENCOUNTER 2018-01-29 07:15 | Inpatient (IN) | payer MEDICARE, OTHER, SELFPAY ==
[2018-01-29] VITALS (16 sets, daily range): BP systolic 139–164; BP diastolic 72–99; PULSE 89–143; RESP 16–34; TEMP 36.5–36.9; O2SAT 94–99; BMI 44.1; BMI 42.2
--- NOTE | 2018-01-29 07:33 | EKG12_ITS ---
Test Reason : SOB Blood Pressure : / mmHG Vent. Rate : 098 BPM Atrial Rate : 098 BPM P-R Int : 164 ms QRS Dur : 100 ms QT Int : 338 ms P-R-T Axes : 070 090 050 degrees QTc Int : 431 ms Normal sinus rhythm Low voltage QRS Borderline ECG Confirmed by ALEKSANDAR PRYOR, BRETT ([id number]), legal editor LEON DURAN ([id number] on 01/31/2018 1:45:19 PM Referred By: KENNEDY Confirmed By:BRETT HUERTAS MD
--- NOTE | 2018-01-29 07:34 | RAD_ITS ---
STUDY: X-RAY CHEST REASON FOR EXAM: Female, 77 years old. Shortness of breath. TECHNIQUE: AP and lateral views of the chest. COMPARISON: Comparison is made with prior study dated January 28, 2018. FINDINGS: EKG electrodes are seen. Progressive CHF. New atelectasis and/or infiltrate in the right midlung. Blunting of both costophrenic angles. There is moderate cardiac enlargement. Normal mediastinum and fouzia. Normal visualized pulmonary arteries. There is atherosclerotic tortuosity of the aortic arch and descending thoracic aorta. There is a dextroscoliosis of the thoracic spine. There is degenerative osteoarthritis of the bilateral shoulders. There is no demonstrated abnormality of the visualized soft tissue structures of the upper abdomen. RAD/Chest PA and Lateral IMPRESSION: Progressive CHF with atelectasis and/or infiltrate in the right midlung. Electronically Signed: Angel Kyle MD at 9:20 EDT Tel [phone], Service support ,
[2018-01-29] MEDS: Ipratropium/Albuterol Sulfate 3 ML AMPUL.NEB INHALATION (07:44)
[2018-01-29] MEDS: Albuterol 2.5 MG/3 ML VIAL.NEB. INHALATION ×3 (07:56→15:04)
[2018-01-29] MEDS: MethylPREDNISolone 125 MG/2 ML Vial IV (08:10)
[2018-01-29 08:47] LABS: Absolute Neutrophil Count 8.8 X10^3/uL (2.0-7.7); Basophil# 0.02 X10^3/uL; Basophil% 0.2 % (0-1); Eosinophil# 0.17 X10^3/uL; Eosinophils% 1.6 % (0-5); Hematocrit 33.2 % (37-47); Hemoglobin 10.5 g/dl (12.0-15.0); Lymphocyte % 9.4 % (19-41); Mean Corp Hgb Conc 31.6 g/gl (32-36); Mean Corpuscular Hgb 29.7 pg (27.0-32.0); Mean Corpuscular Volume 93.8 fL (81-99); Mean Platelet Vol. 10.4 fl (6.2-12.0); Monocyte# 0.62 X10^3/uL; Monocyte% 5.8 % (0-10); Neutrophil # 8.77 X10^3/uL (2.7-7.7); Neutrophil % 82.7 % (47-70); Platelet Count 295 K/mm3 (150-450); RBC Distribution Width CV 14.6 % (11.6-14.6); RBC Distribution Width SD 47.9 fl (35.1-43.9); Red Blood Count 3.54 M/mm3 (4.2-5.4); White Blood Count 10.6 K/mm3 (4.4-11.0)
[2018-01-29 08:49] LABS: POSITIVE COUNT NO; POSITIVE DIFFERENTIAL NO; POSITIVE MORPHOLOGY NO
[2018-01-29 09:01] LABS: Anion Gap 10 (5-15); BUN 19 mg/dL (7-18); BUN/Creat Ratio 45.8 RATIO (10-20); Calcium,Total 8.3 mg/dL (8.5-10.1); Chloride 101 mmol/L (98-107); Creatinine, Serum 0.42 mg/dL (0.55-1.02); EST Glomerular Filtration Rate 158 mL/min (>60); Est Glom Filt Rate - Afr Amer 192 mL/min (>60); Estimated Creatinine Clearance 73.44 ml/min; Glucose 129 mg/dL (74-106); Potassium 5.6 mmol/L (3.5-5.1); Sodium Level 130 mmol/L (136-145)
--- NOTE | 2018-01-29 09:10 | ED.VISSUMM ---
- ER Visit Summary Date of Service: 01/29/18 Chief Complaint: Shortness of breath History of Present Illness: The patient is a [address] Carvajal. She had been admitted to the hospital and was discharged yesterday on Augmentin. She reports that she felt well when she went home. However, she reports that she went to bed last night and her breathing worsened as the night went on. She has a nebulizer, but last used it prior to bed. She reports that she has severe shortness of breath. Patient reports that she has very little cough that is productive white sputum. She has had subjective fever and chills. She denies any chest pain. She reports that she is nauseated. She has had 2 loose stools this morning. No blood in her stools or black tarry stools. Physical Examination: Vitals: 97.8, 144/82, 107, 34, 75% on room air which is hypoxic. She is 94% on 4 L nasal cannula. General: Well-nourished and well-developed. Head: Normocephalic atraumatic. Neck: Supple, no lymphadenopathy. No JVD. Nontender. Cardiovascular: Regular rate and rhythm. No murmurs. Respiratory: Mild respiratory distress. Moderate wheezing bilaterally with very decreased air movement. Abdominal: Soft, nontender, nondistended, normal bowel sounds. No guarding, rebound, or peritoneal signs. Back: Nontender. Extremities: Nontender, 2+ pitting edema of her lower extremities bilaterally. Skin: Normal color, no rash. Neurologic: Alert and oriented ?3. Cranial nerves II through XII are intact. Normal strength and sensation. Psych: Normal affect. Test Results: EKG is sinus at [address] changes. Initial troponin is 0.21. Chem-7 is more for sodium 130, potassium 5.6, CO2 19, BUN of 19, creatinine 0.42, glucose 129, and calcium of 8.3. CBC is more for an H&H 10.5 and 33.2, 7 neutrophils 83, lymphs at 7 9. PT SALARY AND WAGE ADMINISTRATOR is 160.0. Lactic acid 0.5. Chest x-rays shows progressive CHF with atelectasis and/or infiltrate in the mid right lung. Emergency Department Course and Treatment: Patient was given albuterol and Atrovent aerosols. She was given Solu-Medrol IV. She was given Lasix IV. She appears much more comfortable and has not been hypoxic since being here. Treatment Plan: The patient was discussed with Dr. Holley. She will be admitted to the hospital for further relation and treatment. Disposition: Admitted in improved condition. Impression: 1. CHF. 2. Indeterminate troponin. 3. Hyperkalemia. 4. Hypoxia. This note was generated with [employer] dictation software. It may contain incorrect words, spelling, and punctuation that were not noted in review of the chart prior to signing ED Disposition - Plan for ED Patient: Chief Complaint: Shortness of Breath Referrals: Momo Carvajal Chi, MD [Primary Care Provider] -
[2018-01-29 09:18] LABS: Lactic Acid 0.5 mmol/L (0.4-2.0)
[2018-01-29] MEDS: Furosemide 40 MG/4 ML Vial IV ×2 (10:16→22:29)
--- NOTE | 2018-01-29 12:20 | ECHOD_ITS ---
Reason For Study: CHF Procedure This was a 2D Doppler, Color Flow transthoracic echocardiogram. Exam performed portable in patient room. Left Ventricle Normal size and thickness. The estimated ejection fraction is 75 %. Stage 1 diastolic dysfunction. Right Ventricle Normal size and thickness. A moderator band is seen in the right ventricle. Normal systolic function. Atria Normal left atrium. The right atrium is mildly enlarged. Normal atrial septum. Mitral Valve The mitral valve is structurally normal. No prolapse or stenosis seen. Tricuspid Valve Normal tricuspid valve. Trivial tricuspid valve insufficiency. Right ventricular systolic pressure estimated to be 54 mmHg. Moderate pulmonary hypertension. Aortic Valve Normal aortic valve. Trisinus/trileaflet aortic valve. Pulmonic Valve The pulmonic valve is not well visualized. Great Vessels Normal aortic root. Normal arch. The inferior vena cava is dilated. No collapse of the inferior vena cava. Pericardium/Pleural Epicardial fat. Moderate size left pleural effusion. MMode/2D Measurements & Calculations LVIDd: 3.6 cm IVSd: 0.82 cm Ao root diam: 2.6 cm LVIDs: 2.5 cm LVPWd: 0.96 cm LA dimension: 3.5 cm RVDd: 3.6 cm FS: 32.1 % LAV(MOD-bp): 30.2 ml LA A4 area: 11.3 cm2 RA A4 area: 19.8 cm2 LAV(MOD-bp) Indexed: 16.5 ml/m2 LAV(MOD-sp2): 54.8 ml LAV(MOD-sp4): 16.5 ml Time Measurements MV dec time: 0.08 sec Doppler Measurements & Calculations MV E max rahul: 74.5 cm/sec Lat Peak E' Rahul: 7.4 cm/sec MV V2 max: 228.5 cm/sec MV A max rahul: 181.3 cm/sec E/E' lat: 10.0 MV max P.9 mmHg MV E/A: 0.41 MV V2 mean: 123.4 cm/sec MV mean P.1 mmHg MV V2 VTI: 33.0 cm MV P1/2t max rahul: 112.4 cm/sec Ao V2 max: 157.1 cm/sec LV V1 max: 124.6 cm/sec MV P1/2t: 105.2 msec Ao max P.9 mmHg LV V1 max P.2 mmHg MV dec slope: 312.7 cm/sec2 Ao V2 mean: 108.4 cm/sec MVA(P1/2t): 2.1 cm2 Ao mean P.2 mmHg Ao V2 VTI: 28.5 cm PA V2 max: 69.7 cm/sec TR max rahul: 352.2 cm/sec TR max P.6 mmHg Interpretation Summary The estimated ejection fraction is 75 %. Stage 1 diastolic dysfunction. The right atrium is mildly enlarged. Trivial tricuspid valve insufficiency. Right ventricular systolic pressure estimated to be 54 mmHg. Moderate pulmonary hypertension. The inferior vena cava is dilated No collapse of the inferior vena cava. Possible moderate size left pleural effusion. Compared to echo report dated 09/30/2013, LV function has remained the same, but RVSP has increased from 36 to 54 mm Hg. Ordering Physician: Catrachito Holley Referring Physician: Momo Carvajal Chi Performed By: Alexandra Olivarez, NIDHI, RVT
--- NOTE | 2018-01-29 15:58 | PCM.HP.STD ---
Problem List (1) Shortness of breath Status: Acute History of Present Illness Date of Admission: 01/29/18 Chief Complaint: Shortness of breath The patient is a 77 year old F seen in the emergency room at [facility] with a chief complaint of increased shortness of breath since her release from the hospital yesterday. Patient underwent hospitalization for hypoxia and suspected pneumonia, she was seen by pulmonary medicine who felt that the patient more than likely had atelectasis, her workup including respiratory panel was unremarkable and she was discharged yesterday afternoon with a pulse ox of 91% on room air. Patient states that during the night her breathing became more labored, on admission to the ER today her pulse ox on room air was 75%. Patient denied any chest pain, purulent sputum production, fever, or chills. Workup in the emergency room included a chest x-ray which showed evidence of CHF, patient's white blood cell count was normal, potassium was elevated at 5.6, troponin was elevated at 0.21, beta natruretic peptide was 160, BUN was 19. Patient's EKG showed normal sinus rhythm without evidence of ischemic changes. Patient was given aerosol treatments and IV Lasix, she will be admitted for acute congestive heart failure-type unknown. Past Medical History Past Medical History (Chronic Problems): Chronic Problems HTN (hypertension) (Chronic) HLD (hyperlipidemia) (Chronic) Arthrogryposis (Chronic) Single kidney (Chronic) Morbid obesity with BMI of 40.0-44.9, adult (Chronic) Allergies No Known Allergies Allergy (Verified 01/26/18 19:43) Home Medications: Ambulatory Orders Medication Instructions Recorded Aspirin [Aspirin, Baby] 81 mg PO DAILY@0800 07/12/15 Atorvastatin Calcium [Lipitor] 80 mg PO QHS 07/12/15 Calcium Carb/Vitamin D 2 tab PO DAILY 07/12/15 [Caltrate-600 With Vit D Tab] Furosemide 40 mg PO DAILY 07/12/15 Lisinopril [Zestril] 5 mg PO DAILY 07/12/15 Potassium Chloride [K-Dur] 10 meq PO 4X/DAY 07/12/15 Dibucaine [Nupercainal] 56.7 gm RC 4X/DAY PRN PRN #1 09/28/15 oint...g. Benzonatate [Tessalon Perle] 100 mg PO TID PRN 01/26/18 Amoxicillin/Potassium Clav 1 ea PO BIDCM #10 tab 01/28/18 [Augmentin 875-125 Tablet] Surgical History: - - R Nephrectomy, Minor Surgey on the L Kidney, notable BL UE and LE corrective surgeries in her youth. Psychiatric History: No pertinent psych hx ROOM CLEANER History: No pertinent ROOM CLEANER history Lives: Spouse/ Significant Other Smoking Status: Never smoker Tobacco Use: Non-smoker Alcohol: None Drugs: None - *Family History Maternal History Items: Heart Disease Paternal History Items: Heart Disease Review of Systems Constitutional: Reports: Weakness, Fatigue. Denies: Anorexia, Chills, Fever, Night Sweats, Malaise, Weight Change Eyes: Denies: Blurred vision, Cataracts, Conjunctivae Inflammation, Double vision, Drainage HEENT: Denies: Difficulty Hearing, Difficulty Swallowing, Dysphasia, Ear Pain, Eye Pain, Head Aches, Hearing Changes, Nasal bleeding, Nasal Congestion Cardiovascular: Denies: Chest Pain, Claudication, Chest Pressure, Chest Tightness, Edema, Heaviness, Light Headedness, Orthopnea, Palpitations, Syncope Respiratory: Reports: Shortness of Breath, Shortness of breath at rest, Shortness of breath upon exertion, Wheezing. Denies: Cough, Hemoptysis, Pleuritic Pain, Sputum production Gastrointestinal: Denies: Abdominal Pain, Constipation, Diarrhea, Hematemesis, Hematochezia, Nausea, Melena, Vomiting Genitourinary: Denies: Dysuria, Frequency, Hematuria, Hesitancy, Urgency Gynecological: Denies: Breast symptoms Musculoskeletal: Denies: Back Pain, Foot Pain, Hand Pain, Joint Pain, Joint stiffness, Joint swelling, Joint Tenderness, Leg Pain Skin: Denies: Dryness, Pruritis, Rash Neurological: Denies: Balance problems, Blurred vision, Double vision, Slurred speech, Difficulty swallowing, Focal weakness, Headaches, Numbness, Tingling Psychiatric: Denies: Anxiety, Depression, Homicidal Ideations, Suicidal Ideations Endocrine: Denies: Change in Body Habitus, Heat/ Cold Intolerance, Polydipsia, Polyuria Hematologic/ Lymphatic: Denies: Adenopathy, Anemia, Easy Bruising, Easy Bleeding, Petechiae, Purpura VTE Information - Inpt Only VTE Present on Admission: No VTE Mechan Device Prophylaxis: None VTE Pharm Prophylaxis ordered?: Yes Patient Problems: Active and Suspected Problems Shortness of breath (Acute) - Physical Exam General: Alert, Oriented x3, Cooperative, No apparent distress, Well developed, Well nourished HEENT: Atraumatic, PERRLA, EOMI, Normocephalic Oral: Moist Mucosa Neck: Supple, No JVD, No Nuchal Rigidity, Trachea Midline, Thyroid Normal Size and Texture Lungs: No rhonchi, Diminished, Rales - Inspiratory rales and expiratory wheezes at the bases Cardiovascular: Regular rate, Regular Rhythm, Normal S1, Normal S2, No murmurs, No Ectopic Activity, PMI Normal, No rub noted, No Gallop Abdomen: Bowel Sounds Present, Soft, Non Tender, Non-Distended, No hernias noted Extremities: No clubbing, No cyanosis, No edema, Capillary Refill Less than 3 Seconds Skin: No rashes, No breakdown Musculoskeletal: No Tenderness to Palpation of Joints or Extremities Neurological: Cranial nerves II-XII grossly intact, Neuro grossly intact, Sensory exam intact to light touch and pain, Coordination normal Psych/Mental Status: Normal Affect, Appropriate, Alert and oriented to time, place, person, mood and affect Vital Signs Temp Pulse Resp BP Pulse Ox 98.5 F 102 H 18 139/72 H 95 01/29/18 12:48 01/29/18 15:35 01/29/18 12:48 01/29/18 12:54 01/29/18 12:48 Oxygen Flow Rate (L/min) 2 Oxygen Delivery Method Nasal Cannula Weight: 91.7 kg Body Mass Index (BMI) 42.2 Laboratory Tests Past 24 Hrs 01/29/18 12:50 Troponin I 0.26 H Assessment/Plan Active and Suspected Problems Shortness of breath (Acute) #1 acute congestive heart failure-type unknown, patient will be admitted to PCU, IV Lasix will be administered, echocardiogram will be obtained, repeat chest x-ray will be obtained tomorrow #2 hypoxia secondary to #1-patient's O2 sat will be monitored, supplemental oxygen will be given #3 elevated troponin-etiology unclear at this point, enzymes will be cycled #4 hyperkalemia-this will be rechecked #5 Hypertension #6 hyperlipidemia #7 Morbid obesity Code Visit Inpatient E&M: 40308 Init Hosp L3
--- NOTE | 2018-01-29 16:08 | HP.PCM_ITS ---
Problem List (1) Shortness of breath Status: Acute History of Present Illness Date of Admission: 01/29/18 Chief Complaint: Shortness of breath The patient is a 77 year old F seen in the emergency room at [facility] with a chief complaint of increased shortness of breath since her release from the hospital yesterday. Patient underwent hospitalization for hypoxia and suspected pneumonia, she was seen by pulmonary medicine who felt that the patient more than likely had atelectasis, her workup including respiratory panel was unremarkable and she was discharged yesterday afternoon with a pulse ox of 91% on room air. Patient states that during the night her breathing became more labored, on admission to the ER today her pulse ox on room air was 75%. Patient denied any chest pain, purulent sputum production, fever, or chills. Workup in the emergency room included a chest x-ray which showed evidence of CHF , patient's white blood cell count was normal, potassium was elevated at 5.6, troponin was elevated at 0.21, beta natruretic peptide was 160, BUN was 19. Patient's EKG showed normal sinus rhythm without evidence of ischemic changes. Patient was given aerosol treatments and IV Lasix, she will be admitted for acute congestive heart failure-type unknown. Past Medical History Past Medical History (Chronic Problems): Chronic Problems HTN (hypertension) (Chronic) HLD (hyperlipidemia) (Chronic) Arthrogryposis (Chronic) Single kidney (Chronic) Morbid obesity with BMI of 40.0-44.9, adult (Chronic) Allergies No Known Allergies Allergy (Verified 01/26/18 19:43) Home Medications: Ambulatory Orders Medication Instructions Recorded Aspirin [Aspirin, Baby] 81 mg PO DAILY@0800 07/12/15 Atorvastatin Calcium [Lipitor] 80 mg PO QHS 07/12/15 Calcium Carb/Vitamin D 2 tab PO DAILY 07/12/15 [Caltrate-600 With Vit D Tab] Furosemide 40 mg PO DAILY 07/12/15 Lisinopril [Zestril] 5 mg PO DAILY 07/12/15 Potassium Chloride [K-Dur] 10 meq PO 4X/DAY 07/12/15 Dibucaine [Nupercainal] 56.7 gm RC 4X/DAY PRN PRN #1 09/28/15 oint...g. Benzonatate [Tessalon Perle] 100 mg PO TID PRN 01/26/18 Amoxicillin/Potassium Clav 1 ea PO BIDCM #10 tab 01/28/18 [Augmentin 875-125 Tablet] Surgical History: - - R Nephrectomy, Minor Surgey on the L Kidney, notable BL UE and LE corrective surgeries in her youth. 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 Denies: Anorexia, Chills, Fever, Night Sweats, Malaise, Weight Change Eyes: Denies: Blurred vision, Cataracts, Conjunctivae Inflammation, Double vision, Drainage HEENT: Denies: Difficulty Hearing, Difficulty Swallowing, Dysphasia, Ear Pain, Eye Pain, Head Aches, Hearing Changes, Nasal bleeding, Nasal Congestion Cardiovascular: Denies: Chest Pain, Claudication, Chest Pressure, Chest Tightness, Edema, Heaviness, Light Headedness, Orthopnea, Palpitations, Syncope Respiratory: Reports: Shortness of Breath, Shortness of breath at rest, Shortness of breath upon exertion, Wheezing. Denies: Cough, Hemoptysis, Pleuritic Pain, Sputum production Gastrointestinal: Denies: Abdominal Pain, Constipation, Diarrhea, Hematemesis, Hematochezia, Nausea, Melena, Vomiting Genitourinary: Denies: Dysuria, Frequency, Hematuria, Hesitancy, Urgency Gynecological: Denies: Breast symptoms Musculoskeletal: Denies: Back Pain, Foot Pain, Hand Pain, Joint Pain, Joint stiffness, Joint swelling, Joint Tenderness, Leg Pain Skin: Denies: Dryness, Pruritis, Rash Neurological: Denies: Balance problems, Blurred vision, Double vision, Slurred speech, Difficulty swallowing, Focal weakness, Headaches, Numbness, Tingling Psychiatric: Denies: Anxiety, Depression, Homicidal Ideations, Suicidal Ideations Endocrine: Denies: Change in Body Habitus, Heat/ Cold Intolerance, Polydipsia, Polyuria Hematologic/ Lymphatic: Denies: Adenopathy, Anemia, Easy Bruising, Easy Bleeding , Petechiae, Purpura VTE Information - Inpt Only VTE Present on Admission: No VTE Mechan Device Prophylaxis: None VTE Pharm Prophylaxis ordered?: Yes Patient Problems: Active and Suspected Problems Shortness of breath (Acute) - Physical Exam General: Alert, Oriented x3, Cooperative, No apparent distress, Well developed, Well nourished HEENT: Atraumatic, PERRLA, EOMI, Normocephalic Oral: Moist Mucosa Neck: Supple, No JVD, No Nuchal Rigidity, Trachea Midline, Thyroid Normal Size and Texture Lungs: No rhonchi, Diminished, Rales - Inspiratory rales and expiratory wheezes at the bases Cardiovascular: Regular rate, Regular Rhythm, Normal S1, Normal S2, No murmurs, No Ectopic Activity, PMI Normal, No rub noted, No Gallop Abdomen: Bowel Sounds Present, Soft, Non Tender, Non-Distended, No hernias noted Extremities: No clubbing, No cyanosis, No edema, Capillary Refill Less than 3 Seconds Skin: No rashes, No breakdown Musculoskeletal: No Tenderness to Palpation of Joints or Extremities Neurological: Cranial nerves II-XII grossly intact, Neuro grossly intact, Sensory exam intact to light touch and pain, Coordination normal Psych/Mental Status: Normal Affect, Appropriate, Alert and oriented to time, place, person, mood and affect Vital Signs Temp Pulse Resp BP Pulse Ox 98.5 F 102 H 18 139/72 H 95 01/29/18 12:48 01/29/18 15:35 01/29/18 12:48 01/29/18 12:54 01/29/18 12:48 Oxygen Flow Rate (L/min) 2 Oxygen Delivery Method Nasal Cannula Weight: 91.7 kg Body Mass Index (BMI) 42.2 Laboratory Tests Past 24 Hrs 01/29/18 12:50 Troponin I 0.26 H Assessment/Plan Active and Suspected Problems Shortness of breath (Acute) #1 acute congestive heart failure-type unknown, patient will be admitted to PCU , IV Lasix will be administered, echocardiogram will be obtained, repeat chest x -ray will be obtained tomorrow #2 hypoxia secondary to #1-patient's O2 sat will be monitored, supplemental oxygen will be given #3 elevated troponin-etiology unclear at this point, enzymes will be cycled #4 hyperkalemia-this will be rechecked #5 Hypertension #6 hyperlipidemia #7 Morbid obesity Code Visit Inpatient E&M: 60834 Init Hosp L3
--- NOTE | 2018-01-29 16:28 | NURSING ---
Review and agreed on all charting with Reji Walker RN
[2018-01-29] MEDS: Lisinopril 5 MG Tablet PO (17:19)
[2018-01-29] MEDS: Aspirin 81 MG TAB.CHEW PO (17:19)
[2018-01-29] MEDS: Amox/Clavulanate 875 MG Tablet PO (18:26)
[2018-01-29] MEDS: Atorvastatin Calcium 80 MG Tablet PO (22:29)
[2018-01-29] MEDS: 0.9% NaCl Peripheral Flush Adult/Peds IV (22:32)
[2018-01-30] VITALS (14 sets, daily range): BP systolic 121–128; BP diastolic 61–81; PULSE 69–99; RESP 16–20; TEMP 36.3–37.2; O2SAT 87–98
--- NOTE | 2018-01-30 05:55 | RAD_ITS ---
STUDY: X-RAY CHEST REASON FOR EXAM: Female, 77 years old. SOB TECHNIQUE: Single frontal view of the chest. COMPARISON: 01/29/2018 FINDINGS: Stable central vascular congestion and bilateral alveolar disease. Costophrenic angles are obscured. Stable large cardiac silhouette. Normal mediastinum and fouzia. Normal visualized pulmonary arteries. Normal visualized aortic arch and descending thoracic aorta. Normal visualized thoracic spine. There is degenerative osteoarthritis of the bilateral shoulders. There is no demonstrated abnormality of the visualized soft tissue structures of the upper abdomen. RAD/Chest 1 View (Portable) IMPRESSION: Stable central vascular congestion and bilateral alveolar disease. Electronically Signed: Gianni White MD at 5:19 EDT Tel , Service support ,
[2018-01-30] MEDS: 0.9% NaCl Peripheral Flush Adult/Peds IV ×3 (05:56→22:14)
[2018-01-30] MEDS: Furosemide 40 MG/4 ML Vial IV (05:56)
[2018-01-30 07:04] LABS: Anion Gap 8 (5-15); BUN 22 mg/dL (7-18); BUN/Creat Ratio 41.3 RATIO (10-20); Calcium,Total 8.6 mg/dL (8.5-10.1); Chloride 99 mmol/L (98-107); Creatinine, Serum 0.53 mg/dL (0.55-1.02); EST Glomerular Filtration Rate 119 mL/min (>60); Est Glom Filt Rate - Afr Amer 144 mL/min (>60); Estimated Creatinine Clearance 70.37 ml/min; Glucose 144 mg/dL (74-106); Potassium 5.1 mmol/L (3.5-5.1); Sodium Level 132 mmol/L (136-145)
[2018-01-30] MEDS: Lisinopril 5 MG Tablet PO (09:14)
[2018-01-30] MEDS: Aspirin 81 MG TAB.CHEW PO (09:14)
[2018-01-30] MEDS: Amox/Clavulanate 875 MG Tablet PO ×2 (09:15→17:20)
[2018-01-30] MEDS: Furosemide 40 MG/4 ML Vial 20 MG IV ×2 (13:45→21:02)
[2018-01-30] MEDS: Albuterol 2.5 MG/3 ML VIAL.NEB. INHALATION ×2 (14:37→20:12)
--- NOTE | 2018-01-30 14:53 | CASEMGMT ---
READMISSION CHART REVIEW: KIRTE strata 3 Adm dx: Acute CHF, Hypoxia, elevated troponin Assessment:
--- NOTE | 2018-01-30 14:55 | CASEMGMT ---
READMISSION CHART REVIEW-see CM assessment completed by Ceci ALBERTO CM on 01/27/18. Pt readmitted the next day after discharging from the ICU for sepsis/pneumonia/hypoxia on 01/28/18 at 1608. Pt c/o increased SOB overnight and returned to ED 01/29 in the am. Pt had declined HHC during that visit. CM to follow PT/OT notes for possible HHC and also to follow for possible home oxygen need. This RN CM to room to speak with pt regarding possible HHC and pt refuses still at this time. Pt is currently on room air at this time and in no distress but states RN just took her off oxygen. Pt states she was fine when she got home initially but overnight she became SOB and pt states that EMS stated her pulse ox was 68% RA. This RN CM spoke with Kacie ALBERTO regarding possible overnight trending pulse ox for pt and will attempt to reach Dr. Holley in regards to same. Pt states she would like to use [facility] if she qualifies for home oxygen. Saeed ALBERTO CM
--- NOTE | 2018-01-30 18:03 | PCM.PROGNOTE ---
Patient Problems: Active and Suspected Problems Shortness of breath (Acute) Subjective: Patient seen and examined today, she is breathing better, I talked at length with her and her . Patient's echocardiogram showed a normal EF with moderate pulmonary hypertension. Chest x-ray continues to show bilateral infiltrates - Physical Exam General: Alert, Oriented x3, Cooperative, No apparent distress, Well developed, Well nourished HEENT: Atraumatic, PERRLA, EOMI, Normocephalic Oral: Moist Mucosa Neck: Supple, No JVD, Negative Carotid Bruits, No Nuchal Rigidity, Trachea Midline, Thyroid Normal Size and Texture Lungs: No rhonchi, No rales, Wheezes - Scattered expiratory wheezes are noted bilaterally Cardiovascular: Regular rate, Regular Rhythm, Normal S1, Normal S2, No murmurs, No Ectopic Activity, PMI Normal, No rub noted, No Gallop Abdomen: Bowel Sounds Present, Soft, Non Tender, Non-Distended, Obese, No hernias noted Extremities: Capillary Refill Less than 3 Seconds Skin: No rashes, No breakdown Neurological: Cranial nerves II-XII grossly intact, Neuro grossly intact, Sensory exam intact to light touch and pain Psych/Mental Status: Normal Affect, Appropriate, Alert and oriented to time, place, person, mood and affect Vital Signs Temp Pulse Resp BP Pulse Ox 98.1 F 78 20 H 128/63 H 87 01/30/18 15:03 01/30/18 15:03 01/30/18 15:03 01/30/18 15:03 01/30/18 15:30 Oxygen Flow Rate (L/min) 2 Oxygen Delivery Method Nasal Cannula Weight: 91.7 kg Body Mass Index (BMI) 42.2 Intake and Output for Last 24 Hours 01/28/18 01/29/18 01/30/18 23:59 23:59 23:59 Intake Total 500 / 500 540 / 540 Output Total 1350 / 1350 1250 / 1250 Balance -850 / -850 -710 / -710 Laboratory Tests Past 24 Hrs 01/29/18 01/30/18 22:37 06:35 Sodium 132 L Potassium 5.1 Chloride 99 Carbon Dioxide 25.0 Anion Gap 8 BUN 22 H Creatinine 0.53 L Estim Creat Clear Calc 70.37 Est GFR (MDRD) Af Amer 144 Est GFR (MDRD) Non-Af 119 BUN/Creatinine Ratio 41.3 H Glucose 144 H Calcium 8.6 Troponin I 0.17 H Medical Necessity - Tobacco Use Smoking Status: Never smoker Tobacco Use: Non-smoker Assessment/Plan Active and Suspected Problems Shortness of breath (Acute) #1 acute congestive heart failure-diastolic in nature-continue IV Lasix, I have decided to decrease the dose to 20 mg every 8 hours #2 hypoxia secondary to #1-patient's O2 sat will be monitored, supplemental oxygen will be given #3 bilateral expiratory wheezing-etiology unclear, I have decided to place the patient on IV corticosteroids and reevaluate her tomorrow #4 pulmonary hypertension #5 elevated troponin-etiology unclear at this point, enzymes remained flat and did not rise appreciably, I do not feel that she needs a cardiac workup #6 hyperkalemia-corrected #7 Hypertension #8 hyperlipidemia #9 Morbid obesity #10 Arthrogryposis #11 recent left lower lobe community-acquired pneumonia-patient remains on Augmentin, this was documented on a CTA which was performed on 01/27/18 Code Visit Inpatient E&M: 99398 Subs Hosp L2
--- NOTE | 2018-01-30 18:49 | NURSING ---
Reviewed and agreed on all charting with Reji Walker RN
[2018-01-30] MEDS: Atorvastatin Calcium 80 MG Tablet PO (21:00)
[2018-01-31] VITALS (16 sets, daily range): BP systolic 120–150; BP diastolic 54–76; PULSE 72–100; RESP 16–20; TEMP 36.4–36.8; O2SAT 88–98
[2018-01-31] MEDS: Furosemide 40 MG/4 ML Vial 20 MG IV ×3 (05:17→21:52)
[2018-01-31] MEDS: 0.9% NaCl Peripheral Flush Adult/Peds IV ×3 (05:17→21:53)
--- NOTE | 2018-01-31 05:55 | RAD_ITS ---
STUDY: X-RAY CHEST REASON FOR EXAM: Female, 77 years old. Dyspnea TECHNIQUE: Single AP portable view of the chest. COMPARISON: January 30, 2018 FINDINGS: Stable central vascular congestion and bilateral alveolar disease. There is small left pleural effusion. Stable large cardiac silhouette. Normal mediastinum and fouzia. Normal visualized pulmonary arteries. Normal visualized aortic arch and descending thoracic aorta. Normal visualized thoracic spine. There is degenerative osteoarthritis of the bilateral shoulders. There is no demonstrated abnormality of the visualized soft tissue structures of the upper abdomen. RAD/Chest 1 View (Portable) IMPRESSION: Stable central vascular congestion and bilateral alveolar disease. Electronically Signed: Bonnie Torres MD at 9:19 EDT Tel , Service support ,
[2018-01-31 06:32] LABS: Anion Gap 5 (5-15); BUN 28 mg/dL (7-18); BUN/Creat Ratio 43.3 RATIO (10-20); Calcium,Total 8.6 mg/dL (8.5-10.1); Chloride 99 mmol/L (98-107); Creatinine, Serum 0.65 mg/dL (0.55-1.02); EST Glomerular Filtration Rate 95 mL/min (>60); Est Glom Filt Rate - Afr Amer 115 mL/min (>60); Estimated Creatinine Clearance 70.21 ml/min; Glucose 182 mg/dL (74-106); Potassium 5.3 mmol/L (3.5-5.1); Sodium Level 134 mmol/L (136-145)
[2018-01-31] MEDS: Albuterol 2.5 MG/3 ML VIAL.NEB. INHALATION ×3 (06:41→22:29)
[2018-01-31] MEDS: Lisinopril 5 MG Tablet PO (08:17)
[2018-01-31] MEDS: Amox/Clavulanate 875 MG Tablet PO ×2 (08:17→17:54)
[2018-01-31] MEDS: Aspirin 81 MG TAB.CHEW PO (08:17)
--- NOTE | 2018-01-31 18:34 | PCM.PROGNOTE ---
Patient Problems: Active and Suspected Problems Shortness of breath (Acute) Subjective: Patient was seen and examined today, she still having some expiratory wheezes but they were not as bad as they were yesterday. Patient's pulse ox is 98% on 2 L. Patient's diuresis has not been good, I have decided to give her 1 dose of Zaroxolyn today. Chest x-ray still shows bilateral infiltrates - Physical Exam General: Alert, Oriented x3, Cooperative, No apparent distress, Well developed HEENT: Atraumatic, PERRLA, EOMI, Normocephalic Oral: Moist Mucosa Neck: Supple, No JVD, No Nuchal Rigidity, Trachea Midline, Thyroid Normal Size and Texture Lungs: No rhonchi, No rales, Diminished, Wheezes - Scattered expiratory wheezes are noted bilaterally Cardiovascular: Regular rate, Regular Rhythm, Normal S1, Normal S2, No murmurs, No Ectopic Activity, PMI Normal, No rub noted, No Gallop Abdomen: Bowel Sounds Present, Soft, Non Tender, Non-Distended, No hernias noted Extremities: No clubbing, No cyanosis, Capillary Refill Less than 3 Seconds Skin: No rashes, No breakdown Neurological: Cranial nerves II-XII grossly intact, Neuro grossly intact, Sensory exam intact to light touch and pain Psych/Mental Status: Normal Affect, Appropriate, Alert and oriented to time, place, person, mood and affect Vital Signs Temp Pulse Resp BP Pulse Ox 97.5 F L 97 16 120/56 L 98 01/31/18 13:53 01/31/18 15:38 01/31/18 13:53 01/31/18 13:53 01/31/18 14:56 Oxygen Flow Rate (L/min) 2 Oxygen Delivery Method Nasal Cannula Weight: 91.5 kg Body Mass Index (BMI) 42.2 Intake and Output for Last 24 Hours 01/29/18 01/30/18 01/31/18 23:59 23:59 23:59 Intake Total 500 / 500 780 / 780 1050 / 1050 Output Total 1350 / 1350 1700 / 1700 1090 / 1090 Balance -850 / -850 -920 / -920 -40 / -40 Laboratory Tests Past 24 Hrs 01/31/18 05:25 Sodium 134 L Potassium 5.3 H Chloride 99 Carbon Dioxide 30.0 Anion Gap 5 BUN 28 H Creatinine 0.65 Estim Creat Clear Calc 70.21 Est GFR (MDRD) Af Amer 115 Est GFR (MDRD) Non-Af 95 BUN/Creatinine Ratio 43.3 H Glucose 182 H Calcium 8.6 Medical Necessity - Tobacco Use Smoking Status: Never smoker Tobacco Use: Non-smoker Assessment/Plan Active and Suspected Problems Shortness of breath (Acute) #1 acute congestive heart failure-diastolic in nature-continue IV Lasix, she remains on 20 mg IV every 8 hours, I have given her Zaroxolyn 2.5 mg ?1 tonight #2 hypoxia secondary to #1-patient's O2 sat will be monitored, supplemental oxygen will be given #3 bilateral expiratory wheezing-etiology unclear, patient remains on IV Solu-Medrol 40 mg every 8 hours #4 pulmonary hypertension #5 elevated troponin-etiology unclear at this point, enzymes remained flat and did not rise appreciably, I do not feel that she needs a cardiac workup #6 [id number] will be repeated tomorrow #7 Hypertension #8 hyperlipidemia #9 Morbid obesity #10 Arthrogryposis #11 recent left lower lobe community-acquired pneumonia-patient remains on Augmentin, this was documented on a CTA which was performed on 01/27/18 Summary: This 77-year-old white female who ambulates minimally to a genetic prmxdj-Qmvrhwljtxtnso-qdu admitted to the hospital following a 2 day admission earlier in the week for a left lower lobe pneumonia. At that time patient developed bilateral infiltrates and was seen by pulmonary medicine who felt that the patient had atelectasis, she was discharged home only to return the next day to be admitted this admission for congestive heart failure. Patient has no history of lung disease but according to her, she is treated several times a year with IM corticosteroids for episodes of wheezing. Echocardiogram this admission shows pulmonary hypertension and a normal EF, due to wheezing I have placed her on IV corticosteroids. Patient's blood sugars are marginal. Patient is being diuresed with IV Lasix. Troponins were minimally elevated this admission-significance of this is unknown Code Visit Inpatient E&M: 71424 Subs Hosp L2
--- NOTE | 2018-01-31 18:41 | PN_ITS ---
Patient Problems: Active and Suspected Problems Shortness of breath (Acute) Subjective: Patient was seen and examined today, she still having some expiratory wheezes but they were not as bad as they were yesterday. Patient's pulse ox is 98% on 2 L. Patient's diuresis has not been good, I have decided to give her 1 dose of Zaroxolyn today. Chest x-ray still shows bilateral infiltrates - Physical Exam General: Alert, Oriented x3, Cooperative, No apparent distress, Well developed HEENT: Atraumatic, PERRLA, EOMI, Normocephalic Oral: Moist Mucosa Neck: Supple, No JVD, No Nuchal Rigidity, Trachea Midline, Thyroid Normal Size and Texture Lungs: No rhonchi, No rales, Diminished, Wheezes - Scattered expiratory wheezes are noted bilaterally Cardiovascular: Regular rate, Regular Rhythm, Normal S1, Normal S2, No murmurs, No Ectopic Activity, PMI Normal, No rub noted, No Gallop Abdomen: Bowel Sounds Present, Soft, Non Tender, Non-Distended, No hernias noted Extremities: No clubbing, No cyanosis, Capillary Refill Less than 3 Seconds Skin: No rashes, No breakdown Neurological: Cranial nerves II-XII grossly intact, Neuro grossly intact, Sensory exam intact to light touch and pain Psych/Mental Status: Normal Affect, Appropriate, Alert and oriented to time, place, person, mood and affect Vital Signs Temp Pulse Resp BP Pulse Ox 97.5 F L 97 16 120/56 L 98 01/31/18 13:53 01/31/18 15:38 01/31/18 13:53 01/31/18 13:53 01/31/18 14:56 Oxygen Flow Rate (L/min) 2 Oxygen Delivery Method Nasal Cannula Weight: 91.5 kg Body Mass Index (BMI) 42.2 Intake and Output for Last 24 Hours 01/29/18 01/30/18 01/31/18 23:59 23:59 23:59 Intake Total 500 / 500 780 / 780 1050 / 1050 Output Total 1350 / 1350 1700 / 1700 1090 / 1090 Balance -850 / -850 -920 / -920 -40 / -40 Laboratory Tests Past 24 Hrs 01/31/18 05:25 Sodium 134 L Potassium 5.3 H Chloride 99 Carbon Dioxide 30.0 Anion Gap 5 BUN 28 H Creatinine 0.65 Estim Creat Clear Calc 70.21 Est GFR (MDRD) Af Amer 115 Est GFR (MDRD) Non-Af 95 BUN/Creatinine Ratio 43.3 H Glucose 182 H Calcium 8.6 Medical Necessity - Tobacco Use Smoking Status: Never smoker Tobacco Use: Non-smoker Assessment/Plan Active and Suspected Problems Shortness of breath (Acute) #1 acute congestive heart failure-diastolic in nature-continue IV Lasix, she remains on 20 mg IV every 8 hours, I have given her Zaroxolyn 2.5 mg ?1 tonight #2 hypoxia secondary to #1-patient's O2 sat will be monitored, supplemental oxygen will be given #3 bilateral expiratory wheezing-etiology unclear, patient remains on IV Solu- Medrol 40 mg every 8 hours #4 pulmonary hypertension #5 elevated troponin-etiology unclear at this point, enzymes remained flat and did not rise appreciably, I do not feel that she needs a cardiac workup #6 [id number] will be repeated tomorrow #7 Hypertension #8 hyperlipidemia #9 Morbid obesity #10 Arthrogryposis #11 recent left lower lobe community-acquired pneumonia-patient remains on Augmentin, this was documented on a CTA which was performed on 01/27/18 Summary: This 77-year-old white female who ambulates minimally to a genetic zyxsje-Fqnejihpdhsbqt-ebr admitted to the hospital following a 2 day admission earlier in the week for a left lower lobe pneumonia. At that time patient developed bilateral infiltrates and was seen by pulmonary medicine who felt that the patient had atelectasis, she was discharged home only to return the next day to be admitted this admission for congestive heart failure. Patient has no history of lung disease but according to her, she is treated several times a year with IM corticosteroids for episodes of wheezing. Echocardiogram this admission shows pulmonary hypertension and a normal EF, due to wheezing I have placed her on IV corticosteroids. Patient's blood sugars are marginal. Patient is being diuresed with IV Lasix. Troponins were minimally elevated this admission-significance of this is unknown Code Visit Inpatient E&M: 28729 Subs Hosp L2
[2018-01-31] MEDS: Metolazone 2.5 MG Tablet PO (18:46)
[2018-01-31] MEDS: Atorvastatin Calcium 80 MG Tablet PO (21:53)
[2018-02-01] VITALS (16 sets, daily range): BP systolic 112–140; BP diastolic 44–73; PULSE 70–104; RESP 16–20; TEMP 36.6–36.9; O2SAT 92–98
--- NOTE | 2018-02-01 05:55 | RAD_ITS ---
STUDY: X-RAY CHEST REASON FOR EXAM: Female, 77 years old. Shortness of breath, CHF TECHNIQUE: Single AP portable view of the chest. COMPARISON: 01/31/2018. FINDINGS: EKG lines overlying the chest. The lungs are hyper expanded. Worsening pulmonary vascular congestion. Lower lung airspace disease. There is no demonstrated pleural abnormality. There is moderate cardiac enlargement. Normal mediastinum and fouzia. Normal visualized pulmonary arteries. Normal visualized aortic arch and descending thoracic aorta. Normal visualized thoracic spine. Normal visualized ribs, clavicles, and shoulders. There is no demonstrated abnormality of the visualized soft tissue structures of the upper abdomen. RAD/Chest 1 View (Portable) IMPRESSION: Worsening CHF. Cardiomegaly. Basilar airspace disease. Electronically Signed: Vincent Hidalgo DO at 9:33 EDT , Service support ,
[2018-02-01] MEDS: 0.9% NaCl Peripheral Flush Adult/Peds IV ×2 (06:09→17:11)
[2018-02-01] MEDS: Albuterol 2.5 MG/3 ML VIAL.NEB. INHALATION ×4 (06:48→18:48)
[2018-02-01 06:51] LABS: Anion Gap 6 (5-15); BUN 41 mg/dL (7-18); BUN/Creat Ratio 63.7 RATIO (10-20); Calcium,Total 8.6 mg/dL (8.5-10.1); Chloride 97 mmol/L (98-107); Creatinine, Serum 0.64 mg/dL (0.55-1.02); EST Glomerular Filtration Rate 95 mL/min (>60); Est Glom Filt Rate - Afr Amer 115 mL/min (>60); Estimated Creatinine Clearance 69.06 ml/min; Glucose 158 mg/dL (74-106); Potassium 4.7 mmol/L (3.5-5.1); Sodium Level 134 mmol/L (136-145)
[2018-02-01] MEDS: Aspirin 81 MG TAB.CHEW PO (08:03)
[2018-02-01] MEDS: Amox/Clavulanate 875 MG Tablet PO (08:04)
[2018-02-01] MEDS: predniSONE 20 MG Tablet 40 MG PO (09:40)
[2018-02-01] MEDS: Lisinopril 5 MG Tablet PO (09:41)
[2018-02-01] MEDS: Furosemide 40 MG Tablet PO (09:42)
--- NOTE | 2018-02-01 11:23 | PCM.PN.HOSP ---
Patient Problems: Active and Suspected Problems Shortness of breath (Acute) Vitals/I&O's: Vital Signs Temp Pulse Resp BP Pulse Ox 98.3 F 104 H 16 130/56 H 98 02/01/18 09:34 02/01/18 09:34 02/01/18 09:34 02/01/18 09:34 02/01/18 10:22 Oxygen Flow Rate (L/min) 2 Oxygen Delivery Method Nasal Cannula Weight: 90 kg Body Mass Index (BMI) 42.2 Intake and Output for Last 24 Hours 01/30/18 01/31/18 02/01/18 23:59 23:59 23:59 Intake Total 780 / 780 1050 / 1050 240 / 240 Output Total 1700 / 1700 1090 / 1090 1375 / 1375 Balance -920 / -920 -40 / -40 -1135 / -1135 Laboratory Results 02/01/18 05:50: Sodium 134 L, Potassium 4.7, Chloride 97 L, Carbon Dioxide 31.0, Anion Gap 6, BUN 41 H, Creatinine 0.64, Estim Creat Clear Calc 69.06, Est GFR (MDRD) Af Amer 115, Est GFR (MDRD) Non-Af 95, BUN/Creatinine Ratio 63.7 H, Glucose 158 H, Calcium 8.6 Current Medications Acetaminophen (Tylenol) 650 mg PO Q6H PRN PRN PRN Reason: Mild Pain (1-3)/Temp > 100.7 F Albuterol Sulfate (Ventolin Aerosols) 2.5 mg INHALATION Q2H PRN PRN PRN Reason: DYSPNEA Last Admin: 02/01/18 06:48 Dose: 2.5 mg Amoxicillin/Clavulanate Potassium (Augmentin Tablet) 875 mg PO BIDCM REPLACED BY [facility] Last Admin: 02/01/18 08:04 Dose: 875 mg Aspirin (Aspirin, Baby) 81 mg PO DAILY@0800 REPLACED BY [facility] Last Admin: 02/01/18 08:03 Dose: 81 mg Atorvastatin Calcium (Lipitor) 80 mg PO QHS REPLACED BY [facility] Last Admin: 01/31/18 21:53 Dose: 80 mg Furosemide (Lasix) 40 mg PO DAILY REPLACED BY [facility] Last Admin: 02/01/18 09:42 Dose: 40 mg Heparin Sodium (Porcine) () 5,000 units SC Q8 REPLACED BY [facility] Last Admin: 03/24/18 06:03 Dose: Not Given Lisinopril (Zestril) 5 mg PO DAILY REPLACED BY [facility] Last Admin: 02/01/18 09:41 Dose: 5 mg Magnesium Hydroxide (Milk Of Magnesia) 30 ml PO DAILY PRN PRN Reason: Constipation Prednisone () 40 mg PO DAILY@0800 REPLACED BY [facility] Stop: 02/05/18 08:01 Last Admin: 02/01/18 09:40 Dose: 40 mg Sodium Chloride () 5 - 30 ml IV UD PRN PRN Reason: SALINE FLUSH Last Admin: 02/01/18 06:09 Dose: 10 ml Medical Necessity - Tobacco Use Smoking Status: Never smoker Tobacco Use: Non-smoker Assessment/Plan Active and Suspected Problems Shortness of breath (Acute)
--- NOTE | 2018-02-01 11:55 | NURSING ---
Attempted to insert IV x4 unable to gain IV access. Dr. Quan notified.
--- NOTE | 2018-02-01 14:34 | PCM.PN.HOSP ---
Patient Problems: Active and Suspected Problems Shortness of breath (Acute) Subjective: CC: Shortness of breath. Objective: Patient reports significant dyspnea, chest x-ray shows worsening pulmonary edema. Denies any hemoptysis, fever, chills or purulent cough. Vitals/I&O's: Vital Signs Temp Pulse Resp BP Pulse Ox 98.3 F 99 16 130/56 H 98 02/01/18 09:34 02/01/18 13:11 02/01/18 13:11 02/01/18 09:34 02/01/18 10:22 Oxygen Flow Rate (L/min) 2 Oxygen Delivery Method Nasal Cannula Weight: 90 kg Body Mass Index (BMI) 42.2 Intake and Output for Last 24 Hours 01/30/18 01/31/18 02/01/18 23:59 23:59 23:59 Intake Total 780 / 780 1050 / 1050 600 / 600 Output Total 1700 / 1700 1090 / 1090 1600 / 1600 Balance -920 / -920 -40 / -40 -1000 / -1000 General: Alert, Oriented x3 Oral: Moist Mucosa Neck: Supple, No JVD Lungs: Rales, Wheezes Cardiovascular: Normal S1, Normal S2 Abdomen: Bowel Sounds Present, Soft, Non Tender Extremities: No edema Laboratory Results 02/01/18 05:50: Sodium 134 L, Potassium 4.7, Chloride 97 L, Carbon Dioxide 31.0, Anion Gap 6, BUN 41 H, Creatinine 0.64, Estim Creat Clear Calc 69.06, Est GFR (MDRD) Af Amer 115, Est GFR (MDRD) Non-Af 95, BUN/Creatinine Ratio 63.7 H, Glucose 158 H, Calcium 8.6 Current Medications Acetaminophen (Tylenol) 650 mg PO Q6H PRN PRN PRN Reason: Mild Pain (1-3)/Temp > 100.7 F Albuterol Sulfate (Ventolin Aerosols) 2.5 mg INHALATION Q2H PRN PRN PRN Reason: DYSPNEA Last Admin: 02/01/18 13:11 Dose: 2.5 mg Amoxicillin/Clavulanate Potassium (Augmentin Tablet) 875 mg PO BIDCM [facility] Last Admin: 02/01/18 08:04 Dose: 875 mg Aspirin (Aspirin, Baby) 81 mg PO DAILY@0800 [facility] Last Admin: 02/01/18 08:03 Dose: 81 mg Atorvastatin Calcium (Lipitor) 80 mg PO QHS [facility] Last Admin: 01/31/18 21:53 Dose: 80 mg Furosemide (Lasix) 40 mg IV BID@1000,1800 [facility] Heparin Sodium (Porcine) () 5,000 units SC Q8 [facility] Last Admin: 02/01/18 06:03 Dose: Not Given Lisinopril (Zestril) 5 mg PO DAILY [facility] Last Admin: 02/01/18 09:41 Dose: 5 mg Magnesium Hydroxide (Milk Of Magnesia) 30 ml PO DAILY PRN PRN Reason: Constipation Sodium Chloride () 5 - 30 ml IV UD PRN PRN Reason: SALINE FLUSH Last Admin: 02/01/18 06:09 Dose: 10 ml Medical Necessity - Tobacco Use Smoking Status: Never smoker Tobacco Use: Non-smoker Assessment/Plan Active and Suspected Problems Shortness of breath (Acute) 1. Congestive heart failure with preserved left ventricular function; we will change back to IV Lasix 2. Acute respiratory failure with hypoxia requiring supplemental oxygen, we will obtain a CT scan of the chest for further evaluation of her lungs. 3. Pulmonary hypertension; patient is being diuresed as he is on supplemental oxygen. 5 elevated troponin; likely due to NSTEMI type II, echocardiogram revealed normal ejection fraction with no regional wall motion abnormalities. 6. Ambulatory dysfunction due to Arthrogryposis, supportive care. 7 Hypertension; she is on lisinopril. 8. DVT ppx with subcutaneous heparin. Code Visit Inpatient E&M: 42008 Subs Hosp L2
--- NOTE | 2018-02-01 14:38 | PN_ITS ---
Patient Problems: Active and Suspected Problems Shortness of breath (Acute) Subjective: CC: Shortness of breath. Objective: Patient reports significant dyspnea, chest x-ray shows worsening pulmonary edema. Denies any hemoptysis, fever, chills or purulent cough. Vitals/I&O's: Vital Signs Temp Pulse Resp BP Pulse Ox 98.3 F 99 16 130/56 H 98 02/01/18 09:34 02/01/18 13:11 02/01/18 13:11 02/01/18 09:34 02/01/18 10:22 Oxygen Flow Rate (L/min) 2 Oxygen Delivery Method Nasal Cannula Weight: 90 kg Body Mass Index (BMI) 42.2 Intake and Output for Last 24 Hours 01/30/18 01/31/18 02/01/18 23:59 23:59 23:59 Intake Total 780 / 780 1050 / 1050 600 / 600 Output Total 1700 / 1700 1090 / 1090 1600 / 1600 Balance -920 / -920 -40 / -40 -1000 / -1000 General: Alert, Oriented x3 Oral: Moist Mucosa Neck: Supple, No JVD Lungs: Rales, Wheezes Cardiovascular: Normal S1, Normal S2 Abdomen: Bowel Sounds Present, Soft, Non Tender Extremities: No edema Laboratory Results 02/01/18 05:50: Sodium 134 L, Potassium 4.7, Chloride 97 L, Carbon Dioxide 31.0 , Anion Gap 6, BUN 41 H, Creatinine 0.64, Estim Creat Clear Calc 69.06, Est GFR (MDRD) Af Amer 115, Est GFR (MDRD) Non-Af 95, BUN/Creatinine Ratio 63.7 H, Glucose 158 H, Calcium 8.6 Current Medications Acetaminophen (Tylenol) 650 mg PO Q6H PRN PRN PRN Reason: Mild Pain (1-3)/Temp > 100.7 F Albuterol Sulfate (Ventolin Aerosols) 2.5 mg INHALATION Q2H PRN PRN PRN Reason: DYSPNEA Last Admin: 02/01/18 13:11 Dose: 2.5 mg Amoxicillin/Clavulanate Potassium (Augmentin Tablet) 875 mg PO BIDCM [facility] Last Admin: 02/01/18 08:04 Dose: 875 mg Aspirin (Aspirin, Baby) 81 mg PO DAILY@0800 [facility] Last Admin: 02/01/18 08:03 Dose: 81 mg Atorvastatin Calcium (Lipitor) 80 mg PO QHS [facility] Last Admin: 01/31/18 21:53 Dose: 80 mg Furosemide (Lasix) 40 mg IV BID@1000,1800 [facility] Heparin Sodium (Porcine) () 5,000 units SC Q8 [facility] Last Admin: 02/01/18 06:03 Dose: Not Given Lisinopril (Zestril) 5 mg PO DAILY [facility] Last Admin: 02/01/18 09:41 Dose: 5 mg Magnesium Hydroxide (Milk Of Magnesia) 30 ml PO DAILY PRN PRN Reason: Constipation Sodium Chloride () 5 - 30 ml IV UD PRN PRN Reason: SALINE FLUSH Last Admin: 02/01/18 06:09 Dose: 10 ml Medical Necessity - Tobacco Use Smoking Status: Never smoker Tobacco Use: Non-smoker Assessment/Plan Active and Suspected Problems Shortness of breath (Acute) 1. Congestive heart failure with preserved left ventricular function; we will change back to IV Lasix 2. Acute respiratory failure with hypoxia requiring supplemental oxygen, we will obtain a CT scan of the chest for further evaluation of her lungs. 3. Pulmonary hypertension; patient is being diuresed as he is on supplemental oxygen. 5 elevated troponin; likely due to NSTEMI type II, echocardiogram revealed normal ejection fraction with no regional wall motion abnormalities. 6. Ambulatory dysfunction due to Arthrogryposis, supportive care. 7 Hypertension; she is on lisinopril. 8. DVT ppx with subcutaneous heparin. Code Visit Inpatient E&M: 39110 Subs Hosp L2
[2018-02-01] MEDS: Furosemide 40 MG/4 ML Vial IV (17:11)
[2018-02-01] MEDS: Atorvastatin Calcium 80 MG Tablet PO (21:43)
[2018-02-02] VITALS (10 sets, daily range): BP systolic 109–126; BP diastolic 62–84; PULSE 78–88; RESP 16–18; TEMP 36.4–36.8; O2SAT 94–98
[2018-02-02] MEDS: Albuterol 2.5 MG/3 ML VIAL.NEB. INHALATION ×2 (07:11→11:13)
[2018-02-02] MEDS: Aspirin 81 MG TAB.CHEW PO (08:08)
[2018-02-02] MEDS: Lisinopril 5 MG Tablet PO (08:09)
[2018-02-02] MEDS: Furosemide 40 MG/4 ML Vial IV (08:09)
--- NOTE | 2018-02-02 11:54 | PCM.DC ---
- Discharge Diagnoses Current Active Problems: Current Active and Chronic Problems Shortness of breath (Acute) You will use the following diet at home:: Cardiac Discharge Activity: Return to Normal Activity Allergies/Adverse Reactions: Allergies No Known Allergies Allergy (Verified 01/26/18 19:43) Medications to take at Discharge Aspirin [Aspirin, Baby] 81 mg PO DAILY@0800 07/12/15 Atorvastatin Calcium [Lipitor] 80 mg PO QHS 07/12/15 Calcium Carb/Vitamin D [Caltrate-600 With Vit D Tab] 2 tab PO DAILY 07/12/15 Lisinopril [Zestril] 5 mg PO DAILY 07/12/15 Potassium Chloride [K-Dur] 10 meq PO 4X/DAY 07/12/15 Dibucaine [Nupercainal] 56.7 gm RC 4X/DAY PRN PRN #1 oint...g. 09/28/15 Benzonatate [Tessalon Perle] 100 mg PO TID PRN 01/26/18 Furosemide 40 mg PO BID #60 tab 02/02/18 The following prescriptions were given: Furosemide 40 mg PO BID #60 tab Primary Care Physician: Momo Carvajal Chi, MD [Primary Care Provider] - In 1 Week Proposed Discharge Date: 02/02/18
--- NOTE | 2018-02-02 11:56 | DS.PCM_ITS ---
Discharge Date and Diagnosis - Problem List Patient Problems: Active and Suspected Problems Shortness of breath (Acute) Date of Admission: 01/29/18 Date of Discharge: 02/02/18 - Primary Discharge Diagnosis Active and Suspected Problems Shortness of breath (Acute) - Secondary Discharge Diagnosis Chronic Problems HTN (hypertension) (Chronic) HLD (hyperlipidemia) (Chronic) Arthrogryposis (Chronic) Single kidney (Chronic) Morbid obesity with BMI of 40.0-44.9, adult (Chronic) Hospital Course and Treatment Imaging Results: 02/03/18 08:00 CTA Chest W/WO Contrast [CT] Urgent Summary of Care Provided: This is a 77 year old F seen in the emergency room at [facility] with a chief complaint of increased shortness of breath her release from the hospital . She was initially hospitalized from [facility] 01/28/2018 and treated for pneumonia with IV antibiotics. She went home she became significantly dyspneic and return to the emergency room chest x-ray showed congestive heart failure and she was readmitted to the hospital and placed on IV Lasix. It has had good diuresis, initially she required supplemental oxygen but has been able to wean off. She is now stable for discharge and we have increased her Lasix from 40 mg daily to 40 mg twice daily. She was discharged home in a stable condition. Physical exam at the time of discharge; 10 4/98, 92, 16, 98% on room air, afebrile she was alert and oriented to time place and person. she did not appear to be any form of distress. S1 and S2 heard no murmur or gallop Lung exam was clear to auscultation with no adventitious sounds. Abdomen was soft nontender with normal bowel sounds. extremity exam did not reveal any edema, palpable pulses bilaterally. Neurologic exam was grossly intact. 1. Congestive heart failure with preserved left ventricular function; improved with IV Lasix , she is now clinically compensated, we are now discharging her home Lasix 40 mg p.o. twice daily. 2. Acute respiratory failure with hypoxia requiring supplemental oxygen, patient has been weaned off supplemental oxygen. 3. Pulmonary hypertension; continue Lasix. 5 elevated troponin; felt to be due to NSTEMI type II, echocardiogram revealed normal ejection fraction with no regional wall motion abnormalities. 6. Ambulatory dysfunction due to Arthrogryposis, supportive care. 7 Hypertension; she is on lisinopril. Discharge Diet: 6 Cup Fluid Restriction Discharge Activity: Return to Normal Activity Home Medications: Medications to take at Discharge Aspirin [Aspirin, Baby] 81 mg PO DAILY@0800 07/12/15 Atorvastatin Calcium [Lipitor] 80 mg PO QHS 07/12/15 Calcium Carb/Vitamin D [Caltrate-600 With Vit D Tab] 2 tab PO DAILY 07/12/15 Lisinopril [Zestril] 5 mg PO DAILY 07/12/15 Potassium Chloride [K-Dur] 10 meq PO 4X/DAY 07/12/15 Dibucaine [Nupercainal] 56.7 gm RC 4X/DAY PRN PRN #1 oint...g. 09/28/15 Benzonatate [Tessalon Perle] 100 mg PO TID PRN 01/26/18 Furosemide 40 mg PO BID #60 tab 02/02/18 Following Prescrptions Were Given to Patient: Furosemide 40 mg PO BID #60 tab Primary Care Physician: Momo Carvajal Chi, MD [Primary Care Provider] - In 1 Week Medical Necessity - Tobacco Use Smoking Status: Never smoker Tobacco Use: Non-smoker Meaningful Use Info Meaningful Use Diagnoses (Choose all that apply): None applicable Code Visit Inpatient E&M: 07147 Disch Hosp
== END 2018-02-02 13:40 | disposition home or self-care (01) | DRG 280 ==
LOC: ED 10:26 → PCU 11:46
PROVIDERS: Admitting Provider Internal Medicine; Emergency Provider Emergency Medicine; Family Provider Family Medicine Geriatric Medicine; PCP Family Medicine Geriatric Medicine; Visit Provider Internal Medicine
DX: I11.0 Hypertensive heart disease with heart failure (principal); J96.01 Acute respiratory failure with hypoxia; I21.A1 Myocardial infarction type 2; J18.9 Pneumonia, unspecified organism; E66.01 Morbid (severe) obesity due to excess calories; E87.5 Hyperkalemia; I27.20 Pulmonary hypertension, unspecified; Z68.41 Body mass index [BMI] 40.0-44.9, adult; E78.5 Hyperlipidemia, unspecified; Z79.899 Other long term (current) drug therapy; Q68.8 Other specified congenital musculoskeletal deformities; Z90.5 Acquired absence of kidney; I50.31 Acute diastolic (congestive) heart failure
CPT/HCPCS: 36415; 51702; 71045; 71046; 80048; 83605; 83880; 84484; 85025; 87040; 93005; 93306; 94640; 94667; 97802; 99251; 99285; A4216; G0463; J1940

== ENCOUNTER → 2018-04-22 15:16 | Outpatient (CLI) | payer MEDICARE, OTHER, SELFPAY ==
[2018-04-22 17:12] LABS: Absolute Lymphocyte Count 1.77 X10^3/ul (0.83-4.51); Absolute Neutrophil Count 3.9 X10^3/uL (2.0-7.7); Basophil# 0.04 X10^3/uL; Basophil% 0.6 % (0-1); Eosinophil# 0.32 X10^3/uL; Eosinophils% 4.8 % (0-5); Hematocrit 37.7 % (37-47); Hemoglobin 11.8 g/dl (12.0-15.0); Lymphocyte # 1.77 X10^3/ul (4.0); Lymphocyte % 26.4 % (19-41); Mean Corp Hgb Conc 31.3 g/gl (32-36); Mean Corpuscular Hgb 29.8 pg (27.0-32.0); Mean Corpuscular Volume 95.2 fL (81-99); Mean Platelet Vol. 11.3 fl (6.2-12.0); Monocyte# 0.66 X10^3/uL; Monocyte% 9.9 % (0-10); Neutrophil % 58.2 % (47-70); Platelet Count 299 K/mm3 (150-450); RBC Distribution Width CV 13.9 % (11.6-14.6); RBC Distribution Width SD 47.2 fl (35.1-43.9); Red Blood Count 3.96 M/mm3 (4.2-5.4); White Blood Count 6.7 K/mm3 (4.4-11.0)
[2018-04-22 17:26] LABS: ALB/GLOB Ratio 1.2 RATIO (0.9-2.4); AST(SGOT) 22 U/L (15-37); Alanine Aminotransfer ALT/SGPT 22 U/L (13-56); Albumin, Serum 3.5 g/dL (3.2-5.0); Alkaline Phosphatase 119 U/L (45-117); Anion Gap 10 (5-15); BUN 21 mg/dL (7-18); BUN/Creat Ratio 35.3 RATIO (10-20); Calcium,Total 9.2 mg/dL (8.5-10.1); Chloride 102 mmol/L (98-107); EST Glomerular Filtration Rate 104 mL/min (>60); Est Glom Filt Rate - Afr Amer 126 mL/min (>60); Globulin 2.8 g/dL (2.2-4.2); Glucose 98 mg/dL (74-106); Potassium 4.9 mmol/L (3.5-5.1); Protein, Total 6.3 g/dL (6.4-8.2); Sodium Level 143 mmol/L (136-145); Thyroid Stim Hormone (TSH) 1.38 uIU/mL (0.358-3.74)
[2018-04-22 17:27] LABS: POSITIVE COUNT NO; POSITIVE DIFFERENTIAL NO; POSITIVE MORPHOLOGY NO
[2018-04-23 08:37] LABS: Vitamin D,25 Hydroxy 36.4 ng/mL (29.95-100.01)
== END ==
PROVIDERS: Family Provider Family Medicine Geriatric Medicine; PCP Family Medicine Geriatric Medicine; Visit Provider Family Medicine Geriatric Medicine
DX: E55.9 Vitamin D deficiency, unspecified (principal); I10 Essential (primary) hypertension
CPT/HCPCS: 36415; 80053; 82306; 84443; 85025

== ENCOUNTER → 2018-10-22 14:37 | Outpatient (CLI) | payer MEDICARE, OTHER, SELFPAY ==
[2018-01-29 12:26] VITALS: BMI 42.2
[2018-10-22 15:57] LABS: Absolute Lymphocyte Count 1.46 X10^3/ul (0.83-4.51); Absolute Neutrophil Count 4.2 X10^3/uL (2.0-7.7); Basophil# 0.03 X10^3/uL; Basophil% 0.4 % (0-1); Eosinophil# 0.43 X10^3/uL; Eosinophils% 6.4 % (0-5); Hematocrit 38.7 % (37-47); Lymphocyte # 1.46 X10^3/ul (4.0); Lymphocyte % 21.6 % (19-41); Mean Corpuscular Hgb 29.6 pg (27.0-32.0); Mean Corpuscular Volume 95.3 fL (81-99); Mean Platelet Vol. 10.4 fl (6.2-12.0); Monocyte# 0.61 X10^3/uL; Neutrophil # 4.22 X10^3/uL (2.7-7.7); Neutrophil % 62.5 % (47-70); Platelet Count 321 K/mm3 (150-450); RBC Distribution Width CV 13.9 % (11.6-14.6); RBC Distribution Width SD 48.4 fl (35.1-43.9); Red Blood Count 4.06 M/mm3 (4.2-5.4); White Blood Count 6.8 K/mm3 (4.4-11.0)
[2018-10-22 16:15] LABS: POSITIVE COUNT NO; POSITIVE DIFFERENTIAL NO; POSITIVE MORPHOLOGY NO
[2018-10-22 17:09] LABS: ALB/GLOB Ratio 1.2 RATIO (0.9-2.4); AST(SGOT) 23 U/L (15-37); Alanine Aminotransfer ALT/SGPT 23 U/L (13-56); Albumin, Serum 3.5 g/dL (3.2-5.0); Alkaline Phosphatase 135 U/L (45-117); Anion Gap 8 (5-15); BUN 29 mg/dL (7-18); BUN/Creat Ratio 52.9 RATIO (10-20); Chloride 101 mmol/L (98-107); Creatinine, Serum 0.55 mg/dL (0.55-1.02); EST Glomerular Filtration Rate 115 mL/min (>60); Est Glom Filt Rate - Afr Amer 139 mL/min (>60); Glucose 85 mg/dL (74-106); Potassium 4.7 mmol/L (3.5-5.1); Protein, Total 6.5 g/dL (6.4-8.2); Sodium Level 140 mmol/L (136-145); Thyroid Stim Hormone (TSH) 1.74 uIU/mL (0.358-3.74)
[2018-10-22 17:55] LABS: Vitamin D,25 Hydroxy 33.6 ng/mL (29.95-100.01)
--- OUTSIDE RECORDS SUMMARY | 2018-12-08 19:40 | XMS RPT_ITS ---
:1940 Author Organization [facility] Support Name Relationship Address Phone Saúl Goode Unavailable [id number] + [place] [address] Néstor Saenzter Unavailable [address] + [place] [address] R Unavailable Unavailable Unavailable Saúl Goode Unavailable [address] + [place] [address] Néstor Saenzter Unavailable [address] + [place] [address] R Unavailable Unavailable Unavailable Saúl Goode Unavailable [address] + [place] [address] Néstor Saenzter Unavailable [address] + [place] [address] R Unavailable Unavailable Unavailable SAÚL GOODE Unavailable [address] + [place] [address] NÉSTOR SAENZTER Unavailable [address] + [place] [address] R Unavailable Unavailable Unavailable SAÚL GOODE Unavailable [address] + [place] [address] NÉSTOR SAENZTER Unavailable [address] + [place] [address] R Unavailable Unavailable Unavailable SAÚL GOODE Unavailable [address] + [place] [address] NÉSTOR SAENZTER Unavailable [address] + [place] [address] R Unavailable Unavailable Unavailable SAÚL GOODE Unavailable [address] + [place] [address] NÉSTOR SAENZTER Unavailable [address] + [place] [address] R Unavailable Unavailable Unavailable Saúl Goode Unavailable [address] + [place] [address] Eugene, Sebas Unavailable [address] + [place] [address] R Unavailable Unavailable Unavailable Saúl Goode Unavailable [address] + [place] [address] Eugene, Sebas Unavailable [address] + [place] [address] R Unavailable Unavailable Unavailable Saúl Goode Unavailable [address] + [place] [address] Eugene, Sebas Unavailable [address] + [place] [address] R Unavailable Unavailable Unavailable SAÚL GOODE Unavailable [address] + [place] [address] EUGENE, SEBAS Unavailable [address] + [place] [address] R Unavailable Unavailable Unavailable SAÚL GOODE Unavailable [address] + [place] [address] EUGENE, SEBAS Unavailable [address] + [place] [address] R Unavailable Unavailable Unavailable Saúl Goode Unavailable [address] + [place] [address] Eugene, Sebas Unavailable [address] + [place] [address] R Unavailable Unavailable Unavailable SAÚL GOODE Unavailable [address] + [place] [address] EUGENE, SEBAS Unavailable [address] + [place] [address] R Unavailable Unavailable Unavailable SAÚL GOODE Unavailable [address] + [place] [address] EUGENE, SEBAS Unavailable [address] + [place] [address] R Unavailable Unavailable Unavailable SAÚL GOODE Unavailable [address] + [place] [address] EUGENE, SEBAS Unavailable [address] + [place] [address] R Unavailable Unavailable Unavailable JAGGER, KERILYNN Unavailable [address] + [place] [address] EUGENE, SEBAS Unavailable [address] + [place] [address] R Unavailable Unavailable Unavailable JAGGER, KERILYNN Unavailable [address] + [place] [address] EUGENE, SEBAS Unavailable [address] + [place] [address] R Unavailable Unavailable Unavailable JAGGER, KERILYNN Unavailable [address] + [place] [address] EUGENE, SEBAS Unavailable [address] + [place] [address] R Unavailable Unavailable Unavailable JAGGER KERILYNN Unavailable [address] + [place] [address] EUGENE, SEBAS Unavailable [address] + [place] [address] R Unavailable Unavailable Unavailable JAGGER, KERILYNN Unavailable [address] + [place] [address] EUGENE, SEBAS Unavailable [address] + [place] [address] R Unavailable Unavailable Unavailable JAGGER, KERILYNN Unavailable [address] + [place] [address] EUGENE, SEBAS Unavailable [address] + [place] [address] R Unavailable Unavailable Unavailable JAGGER, KERILYNN Unavailable [address] + [place] [address] EUGENE, SEBAS Unavailable [address] + [place] [address] R Unavailable Unavailable Unavailable JAGGER, KERILYNN Unavailable [address] + [place] [address] EUGENE, SEBAS Unavailable [address] + [place] [address] R Unavailable Unavailable Unavailable JAGGER, KERILYNN Unavailable [address] + [place] [address] EUGENE, SEBAS Unavailable [address] + [place] [address] R Unavailable Unavailable Unavailable SAÚL GOODE Unavailable [address] + [place] [address] EUGENE, SEBAS Unavailable [address] + [place] [address] R Unavailable Unavailable Unavailable SAÚL GOODE Unavailable [address] + [place] [address] EUGENE, SEBAS Unavailable [address] + [place] [address] R Unavailable Unavailable Unavailable Care Team Providers Name Role Phone Wei, Momo Chi Attending Unavailable Wei, Momo Chi Primary Care Unavailable Kristan, Mike Admitting Unavailable Kristan, Mike Attending Unavailable Wei, Momo Chi Primary Care Unavailable Kristan, Mike Consulting Unavailable Kristan, Mike Admitting Unavailable Donn, Neal Attending Unavailable Wei, Momo Chi Primary Care Unavailable Donn, Neal Consulting Unavailable Kristan, Mike Admitting Unavailable Donn, Neal Attending Unavailable Wei, Momo Chi Primary Care Unavailable Vlad, Louise Consulting Unavailable Donn, Neal Consulting Unavailable Kristan, Mike Admitting Unavailable Donn, Neal Attending Unavailable Wei, Momo Chi Primary Care Unavailable Vlad, Louise Consulting Unavailable Donn, Neal Consulting Unavailable Timothy Duran Attending Unavailable Gamaliel Capellan Attending Unavailable Kristan, Mike Referring Unavailable Wei, Momo Chi Primary Care Unavailable White, Indu Admitting Unavailable Catrachito Holley Attending Unavailable Anton, Jerry Consulting Unavailable White, Indu Admitting Unavailable White, Indu Attending Unavailable Wei, Momo Chi Primary Care Unavailable White, Indu Consulting Unavailable White, Inud Admitting Unavailable Liza Rivera FABRIC WORKER-C Attending Unavailable Wei, Momo Chi Primary Care Unavailable Anton, Jerry Consulting Unavailable Tereletsky, Catrachito Consulting Unavailable White, Indu Admitting Unavailable Anton Jerry Attending Unavailable Wei, Momo Chi Primary Care Unavailable Anton, Jerry Consulting Unavailable Tereletsky, Catrachito Consulting Unavailable Wei, Momo Chi Attending Unavailable Wei, Momo Chi Primary Care Unavailable Kristan, Mike Admitting Unavailable Donn, Neal Attending Unavailable Wei, Momo Chi Primary Care Unavailable Vlad, Louise Consulting Unavailable Donn, Neal Consulting Unavailable Wei, Momo Chi Primary Care Unavailable Kristan, Mike Admitting Unavailable Donn, Neal Attending Unavailable Louise Chu Consulting Unavailable Orlando Baer Attending Unavailable Termatthewky, Catrachito Referring Unavailable Tereletsky, Catrachito Attending Unavailable Tereletsky, Catrachito Admitting Unavailable Wei, Momo Chi Primary Care Unavailable Gbaruk, Kombian Consulting Unavailable Donn, Neal Attending Unavailable Tereletsky, Catrachito Admitting Unavailable Wei, Momo Chi Primary Care Unavailable Gbaruk, Kombian Consulting Unavailable Donn, Neal Attending Unavailable Tereletsky, Catrachito Admitting Unavailable Tereletsky, Catrachito Attending Unavailable Wei, Momo Chi Primary Care Unavailable Tereletsky, Catrachito Consulting Unavailable Carmenza, Indu Admitting Unavailable Tereletsky, Catrachito Attending Unavailable Wei, Momo Chi Primary Care Unavailable Jerry Walotn Consulting Unavailable Tereletsky, Catrachito Consulting Unavailable Tereletsky, Catrachito Admitting Unavailable Tereletsky, Catrachito Attending Unavailable Wei, Momo Chi Primary Care Unavailable Tereletsky, Catrachito Consulting Unavailable Wei, Momo Chi Primary Care Unavailable Tereletsky, Catrachito Admitting Unavailable Gbaruk, Kombian Attending Unavailable Wei, Momo Chi Attending Unavailable Wei, Momo Chi Primary Care Unavailable Wei, Momo Chi Primary Care Unavailable Orlando Shaffer Attending Unavailable Kristan, Mike Admitting Unavailable Donn, Neal Attending Unavailable Wei, Momo Chi Primary Care Unavailable Donn, Neal Consulting Unavailable TimiGamaliel marcial Attending Unavailable Donn, Neal Referring Unavailable Timothy Duran Attending Unavailable PROBLEMS PROBLEMS DATE TYPE CONDITION / CODE ATTENDING STATUS SOURCE 10/31/2018 Unknown Z90.5 - Acquired Donn, Neal Active [facility] absence of kidney / Community Z90.5(ICD-10) Hospital Repository 11/20/2018 Unknown R94.31 - Abnormal Timi, Gamaliel Active [facility] electrocardiogram Community [ECG] [EKG] / Hospital R94.31(ICD-10) Repository PROCEDURES PROCEDURES No Procedure Records FoundRESULTS RESULTS BASIC METABOLIC Collected: 11/26/2018 Status: F Source: [place] PROFILE (BMP) 3[facility] TYPE CODE TESTS RESULT OUT OF RANGE REFERENCE UNITS LAB L501.0100 74-106 mg/dL Normal GLU 91 Result Comment: Please note revised GLUCOSE reference range effective 2017. LAB L501.1000 7-18 mg/dL High BUN 19 LAB L501.1100 0.55-1.02 mg/dL Low CREAT,SERUM 0.51 Result Comment: The validity of the calculated GFR AND GFRAA in patients over 70 years has not been determined. Clinical correlation is essential. LAB L501.1110 >60 mL/min Normal EST GFR 125 Result Comment: Non- GFR Calc LAB L501.1115 >60 mL/min Normal EST GFR - AA 151 Result Comment: GFR Calc LAB L501.1300 10-20 RATIO High BUN/CRE 37.4 LAB L501.2200 8.5-10.1 mg/dL CA Normal 9.6 LAB L501.5300 136-145 mmol/L NA Normal 139 LAB L501.5600 3.5-5.1 mmol/L K Normal 4.3 LAB L501.5900 98-107 mmol/L CL Normal 98 LAB L501.6100 21.0-32.0 mmol/L Normal CO2 31.0 LAB L501.6200 5-15 Normal GAP 10 Performed By: #### L500.2500 #### [facility] [address] [place], [address] EMERGENCY DEPARTMENT Observed: 11/18/2018 Status: F Source: [place] SUMMARY 1:14 AM [facility] REPOSITORY [facility] Medical Records Department [address] [place] [address] Emergency Department Summary 11/03/18 0746 MR#: [id number] Acct: [id number] Name: ABRAN SAENZ Rep #: [id number] : 1940 78 From: Orlando Shaffer DO PCP: Wei PRYOR,Momo Chi Status: DEP ER - ER Visit Summary Date of Service: 11/03/18 Chief Complaint: Shortness of breath History of Present Illness: The patient is a 78 F who states that she was recently admitted into the hospital. She states that she had influenza that nobody knows anything about. She was discharged home on home oxygen. She states that during the night she was short of breath and tried aerosols and an MDI. She states that that did not help and she required transport to the hospital via ambulance. Patient also notes that she feels like her heart is palpating hard Review of the chart demonstrates that the patient was admitted with CHF as well as acute bronchitis/COPD exacerbation secondary to influenza B and human Jiménez pneumo virus. Upon admission she was not on home oxygen but was discharged home with oxygen. She had an echocardiogram that showed an ejection fraction of 60% and normal LV function. Noted stage I diastolic dysfunction and normal LV size. Patient's previous medical history includes congestive heart failure, COPD (patient is a active smoker) as well as hypertension, hypercholesterolemia, single kidney, and arthrogyposis. Patient states she does not know her medications. Review of the discharge instructions I do not see the patient was discharged home on steroids or antibiotics. But they were given to her in the hospital for several days for what appears to be 5 days.. Patient also had evaluation by nephrology for hyponatremia. Physical Examination: Afebrile vital signs are stable Gen: Well-nourished well-developed Head: Normocephalic atraumatic Eyes: Perrl EOMI ENT: TMs clear no rhinorrhea moist mucous membranes Neck: Supple no lymphadenopathy no JVD nontender CVS: Regular rate rhythm no murmurs normal S1-S2 Respiratory: No distress upper airway rhonchi as well as rhonchi at the bases with expiratory wheezing chest nontender Abdomen: Soft nontender nondistended normal bowel sounds no masses Back: Nontender Extremity: Chronic contractures of extremities. Noted lower extremity edema that is not pitting Neuro: alert orientated 3 CN II-XII intact normal strength sensation reflexes gait cerebellar Psych: Normal affect normal mood Test Results: Basic labs are unremarkable. Chest x-ray do not see significant change. CT of the chest please see radiologic details. Emergency Department Course and Treatment: Patient received breathing treatment and Solu-Medrol. Patient is 98% on 2 L. The patient has been resting comfortably. I suspect she probably had a mucous plug during the night as well as palpitations from albuterol. The patient I believe can be discharged. She does not feel comfortable going home due to balance issues and leg weakness from being in the hospital. I spoke with Sarah from social work and we are attempting to get the patient transferred to snf facility on [place] in the late afternoon. Patient will need follow-up for the lung mass seen on CT. Impression: 1. COPD exacerbation 2. Mucus plugging 3. Lung mass This note was generated with Markkitation software. It may contain incorrect words, spelling, and punctuation that were not noted in review of the chart prior to signing ED Disposition - Plan for ED Patient: Disposition: Home or Assisted Living Chief Complaint: Shortness of Breath Instructions: ED COPD Flare Prescriptions: Prednisone [Deltasone] 60 mg PO DAILY #15 tab What to do if you have Problems For any increased pain, shortness of breath, bleeding, nausea or vomiting, chest pain, or any unexpected problems, contact your Primary Care Provider. Call [facility] ([phone]) or report to the closest Emergency Room. Call 911 if necessary. 11/18/18 0114 <Electronically signed by Orlando Shaffer DO> Date Orlando Shaffer DO Cosigner Signature (If Indicated): Date CC: Momo Carvajal MD 12 LEAD ELECTROCARDIOGRAM Observed: 11/17/2018 Status: F Source: [place] 1:54 PM [facility] REPOSITORY [facility] Cardiovascular Services [address] [place] [address] 12 Lead EKG 11/03/18 0748 MR#: [id number] Acct: [id number] Name: ABRAN SAENZ Rep #: [id number] : 1940 78 From: Orlando Baer MD Attending Dr: Status: DEP ER Ordering Dr: Orlando Shaffer DO Date: 11/03/18 Location: ED Sex: F C Admitted: Test Reason : SOB Blood Pressure : / mmHG Vent. Rate : 093 BPM Atrial Rate : 093 BPM P-R Int : 190 ms QRS Dur : 078 ms QT Int : 338 ms P-R-T Axes : 007 -10 038 degrees QTc Int : 420 ms Poor data quality, interpretation may be adversely affected Normal sinus rhythm Possible Left atrial enlargement Borderline ECG Confirmed by ORLANDO BAER ([id number]), newspaper managing editor LEON DURAN ([id number]) on 11/17/2018 1:53:36 PM Referred By: JESSICA Confirmed By:ORLANDO BAER 11/17/18 1353 Date Orlando Baer MD CC: Orlando Shaffer DO; Momo Carvajal MD Signed CBC-COMPLETE BLOOD CNT Collected: 11/14/2018 Status: F Source: [place] NO DIFF 8:00 AM [facility] REPOSITORY Order Comment: 401 TYPE CODE TESTS RESULT OUT OF RANGE REFERENCE UNITS LAB L100.1000 4.4-11.0 K/mm3 Normal WBC 6.8 LAB L100.1200 4.2-5.4 M/mm3 Low RBC 3.93 LAB L100.1300 12.0-15.0 g/dl Low HGB 11.7 LAB L100.1400 37-47 % Low HCT 36.7 LAB L100.1500 81-99 fL Normal MCV 93.4 LAB L100.1600 27.0-32.0 pg Normal MCH 29.8 LAB L100.1700 32-36 g/gl Low MCHC 31.9 LAB L100.1810 11.6-14.6 % High RDW CV 14.7 LAB L100.1820 35.1-43.9 fl High RDW SD 49.5 LAB L100.1900 150-450 K/mm3 Normal PLT 217 LAB L100.2000 6.2-12.0 fl Normal MPV 9.6 Performed By: #### L100.0500 #### [facility] [address] [place], [address] BASIC METABOLIC Collected: 11/14/2018 Status: F Source: [place] PROFILE (BMP) 8:00 AM [facility] REPOSITORY Order Comment: 401 TYPE CODE TESTS RESULT OUT OF RANGE REFERENCE UNITS LAB L501.0100 74-106 mg/dL Normal GLU 77 Result Comment: Please note revised GLUCOSE reference range effective 2017. LAB L501.1000 7-18 mg/dL High BUN 22 LAB L501.1100 0.55-1.02 mg/dL Low CREAT,SERUM 0.47 Result Comment: The validity of the calculated GFR AND GFRAA in patients over 70 years has not been determined. Clinical correlation is essential. LAB L501.1110 >60 mL/min Normal EST GFR 136 Result Comment: Non- GFR Calc LAB L501.1115 >60 mL/min Normal EST GFR - AA 164 Result Comment: GFR Calc LAB L501.1300 10-20 RATIO High BUN/CRE 46.4 LAB L501.2200 8.5-10.1 mg/dL Low CA 8.1 LAB L501.5300 136-145 mmol/L NA Normal 138 LAB L501.5600 3.5-5.1 mmol/L K Normal 3.8 LAB L501.5900 98-107 mmol/L Low CL 96 LAB L501.6100 21.0-32.0 mmol/L High CO2 34.0 LAB L501.6200 5-15 Normal GAP 8 Performed By: #### L500.2500 #### [facility] [address] [place], [place], [id number] CBC-COMPLETE BLOOD CNT Collected: 11/07/2018 Status: F Source: [place] NO DIFF 8:00 AM [facility] REPOSITORY Order Comment: 401 TYPE CODE TESTS RESULT OUT OF RANGE REFERENCE UNITS LAB L100.1000 4.4-11.0 K/mm3 Normal WBC 7.0 LAB L100.1200 4.2-5.4 M/mm3 Low RBC 3.64 LAB L100.1300 12.0-15.0 g/dl Low HGB 11.0 LAB L100.1400 37-47 % Low HCT 34.7 LAB L100.1500 81-99 fL Normal MCV 95.3 LAB L100.1600 27.0-32.0 pg Normal MCH 30.2 LAB L100.1700 32-36 g/gl Low MCHC 31.7 LAB L100.1810 11.6-14.6 % Normal RDW CV 13.6 LAB L100.1820 35.1-43.9 fl High RDW SD 45.2 LAB L100.1900 150-450 K/mm3 Normal PLT 287 LAB L100.2000 6.2-12.0 fl Normal MPV 10.5 Performed By: #### L100.0500 #### [facility] [address] [place], [address] BASIC METABOLIC Collected: 11/07/2018 Status: F Source: [place] PROFILE (BMP) 8:00 AM [facility] REPOSITORY Order Comment: 401 TYPE CODE TESTS RESULT OUT OF RANGE REFERENCE UNITS LAB L501.0100 74-106 mg/dL Normal GLU 80 Result Comment: Please note revised GLUCOSE reference range effective 2017. LAB L501.1000 7-18 mg/dL Normal BUN 17 LAB L501.1100 0.55-1.02 mg/dL Low CREAT,SERUM 0.42 Result Comment: The validity of the calculated GFR AND GFRAA in patients over 70 years has not been determined. Clinical correlation is essential. LAB L501.1110 >60 mL/min Normal EST GFR 155 Result Comment: Non- GFR Calc LAB L501.1115 >60 mL/min Normal EST GFR - AA 188 Result Comment: GFR Calc LAB L501.1300 10-20 RATIO High BUN/CRE 40.4 LAB L501.2200 8.5-10.1 mg/dL Low CA 8.4 LAB L501.5300 136-145 mmol/L NA Normal 140 LAB L501.5600 3.5-5.1 mmol/L K Normal 4.3 LAB L501.5900 98-107 mmol/L Low CL 97 LAB L501.6100 21.0-32.0 mmol/L High CO2 36.0 LAB L501.6200 5-15 Normal GAP 7 Performed By: #### L500.2500 #### [facility] [address] [place], [address] CHEST WITHOUT Observed: 11/03/2018 Status: F Source: [place] CONTRAST 12:20 PM [facility] REPOSITORY [facility] Imaging Services [address] [place] [address] Chest without Contrast MR#: [id number] Acct: [id number] Name: ABRAN SAENZ Rep #: [id number] : 1940 F 78 From: Laisha Mcclain MD PCP: Wei PRYOR,Momo Pfeiffer Status: REG ER Study: Chest without Contrast Date of Exam: 11/03/18 Exam# [id number] Ordering Dr: Orlando Shaffer DO STUDY: CT CHEST WITHOUT CONTRAST REASON FOR EXAM: Female, 78 years old. Pneumonia RADIATION DOSAGE (If Supplied By Facility): CTDIvol = ( 18.10 ) mGy, DLP = ( 574.42 ) mGycm TECHNIQUE: Transaxial imaging was performed without the administration of intravenous contrast material. Multiplanar coronal and sagittal images were reformatted. Individualized dose optimization techniques were used for this CT. COMPARISON: Chest x-ray November 03, 2018, January 26, 2018 CT scan chest. FINDINGS: There is a small left pleural effusion left lower lobe, left infrahilar dense consolidation and/or potentially mass. There are a few areas of groundglass opacity in the lungs. There is right upper and middle lobe consolidation with air bronchograms. There is a trace right effusion. There is mild to moderate cardiac enlargement there is a small pericardial effusion. Normal heart and pericardium. There are a few nonspecific perinephric lymph nodes. There is a thick-walled appearance of the tortuous esophagus with an air-fluid level at the eliseo. Normal unenhanced pulmonary arteries. There is atherosclerotic tortuosity of the aortic arch and descending thoracic aorta. There are multilevel bridging osteophytes within the thoracic vertebral bodies. There is an irregular appearance of the bilateral ribs which may represent prior procedure and or fracture. This is seen on image #55 axial views. The liver appears enlarged. There is a left pedunculated gastric mass enlarged since prior study. Mass measuring 1.7 x 1.3 cm which is enlarged since the prior study, CT abdomen and pelvis March 07, 2011 The aorta is tortuous and partially calcified. The images are exceedingly grainy especially in the upper abdomen. CT/Chest without Contrast IMPRESSION: Since January 26, 2018, There is a worsening focal masslike consolidation in the left lung base. The consideration is mass versus chronic pneumonia. There is a new since prior, right middle lobe right lower lobe infiltrate suspicious for pneumonia. Recommend follow-up PET scan. Cardiomegaly. Multilevel bridging osteophytes recommend correlation with history of ankylosing spondylosis. 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 Electronically Signed: Laisha Mcclain MD at 13:38 EST Tel , Service support , CC: Orlando Shaffer DO; Momo Carvajal MD Major Account Representative: Signed CBC W/DIFF, AUTOMATED Collected: 11/03/2018 Status: F Source: [place] 9:40 AM [facility] REPOSITORY TYPE CODE TESTS RESULT OUT OF RANGE REFERENCE UNITS LAB L100.1000 4.4-11.0 K/mm3 Normal WBC 7.4 LAB L100.1200 4.2-5.4 M/mm3 Low RBC 3.69 LAB L100.1300 12.0-15.0 g/dl Low HGB 11.0 LAB L100.1400 37-47 % Low HCT 34.2 LAB L100.1500 81-99 fL Normal MCV 92.7 LAB L100.1600 27.0-32.0 pg Normal MCH 29.8 LAB L100.1700 32-36 g/gl Normal MCHC 32.2 LAB L100.1810 11.6-14.6 % Normal RDW CV 13.6 LAB L100.1820 35.1-43.9 fl High RDW SD 45.5 LAB L100.1900 150-450 K/mm3 Normal PLT 186 LAB L100.2000 6.2-12.0 fl Normal MPV 9.6 LAB L100.2100 47-70 % High NEUT% 73.7 LAB L100.2200 19-41 % Low LY% 16.8 LAB L100.2300 0-10 % Normal MONO% 7.2 LAB L100.2400 0-5 % Normal EO% 1.8 LAB L100.2500 0-1 % Normal BASO% 0.0 LAB L100.2550 0.0-0.9 % Normal IM GRAN % 0.500 Result Comment: IG% - Immature Granulocytes (promyelocytes, myelocytes and metamyelocytes) > 1% indicates that a LEFT SHIFT is Present. LAB L100.2620 2.0-7.7 X10 3/uL Normal Absolute Neut 5.4 LAB L100.2720 0.83-4.51 X10 3/ul Normal Absolute Lymph 1.24 Performed By: #### L100.0100 #### [facility] [place], [address] COMPREHENSIVE METABOLIC Collected: 11/03/2018 Status: F Source: [place] PROFIL 9:40 AM [facility] REPOSITORY TYPE CODE TESTS RESULT OUT OF RANGE REFERENCE UNITS LAB L501.0100 74-106 mg/dL High GLU 107 Result Comment: Fasting Glucose result from 100 to 125 mg/dL suggests IMPAIRED HOMEOSTASIS per A.D.A. criteria. Please note revised GLUCOSE reference range effective 2017. LAB L501.1000 7-18 mg/dL Normal BUN 18 LAB L501.1100 0.55-1.02 mg/dL Low CREAT,SERUM 0.38 Result Comment: The validity of the calculated GFR AND GFRAA in patients over 70 years has not been determined. Clinical correlation is essential. LAB L501.1110 >60 mL/min Normal EST GFR 172 Result Comment: Non- GFR Calc LAB L501.1115 >60 mL/min Normal EST GFR - AA 209 Result Comment: GFR Calc LAB L501.1255 ml/min Normal Estimated CRCL 68.54 LAB L501.1300 10-20 RATIO High BUN/CRE 46.8 LAB L501.1500 6.4-8. g/dL Low 2 T PROT 5.4 LAB L501.1800 3.2-5. g/dL Low 0 ALB 2.6 LAB L501.1950 2.2-4. g/dL Normal 2 GLOB 2.8 LAB L501.2000 0.9-2. RATIO Normal 4 A/G 0.9 LAB L501.2200 8.5-10 mg/dL Low .1 CA 7.9 LAB L501.4100 15-37 U/L Normal AST 29 LAB L501.4305 45-117 U/L Normal ALK P 83 LAB L501.4405 13-56 U/L Normal ALT 30 LAB L501.4600 0.20-1 mg/dL Normal .00 T BILI 0.70 LAB L501.5300 136-14 mmol/L Low 5 NA 134 LAB L501.5600 3.5-5. mmol/L Normal 1 K 4.7 LAB L501.5900 98-107 mmol/L Low CL 92 LAB L501.6100 21.0-3 mmol/L High 2.0 CO2 34.0 LAB L501.6200 5-15 Normal GAP 8 Performed By: #### L500.4050, L501.4010 #### [facility] [address] [place], [address] TROPONIN-I Collected: 11/03/2018 Status: F Source: CHRISTOPHER 9:40 AM [facility] REPOSITORY TYPE CODE TESTS RESULT OUT OF RANGE REFERENCE UNITS LAB L501.4010 <0.045 ng/mL Normal < 0.015 TROPONIN-I Result Comment: TROPONIN-I EXPECTED VALUES <0.045 Negative 0.045 - 0.590 Consistent with Cardiac Damage > OR = 0.600 Critical Value Not every elevated troponin is indicative of VA. These values should be used with clinical judgement in examining the patient's clinical picture for diagnosis. To establish a diagnosis of VA versus myocardial injury, there must be a demonstrated rise and/or fall in the troponin values, in addition to ischemic symptoms, EKG changes, new regional wall motion abnormality, and/or angiographical evidence. PLEASE NOTE: REFERENCE RANGES EDITED 18 Performed By: #### L500.4050, L501.4010 #### [facility] [address] [facility] [place], [address] BNP,B-TYPE NATRIURETIC Collected: 11/03/2018 Status: F Source: CHRISTOPHER PEPTIDE 9:40 AM [facility] REPOSITORY TYPE CODE TESTS RESULT OUT OF RANGE REFERENCE UNITS LAB L503.6620 0-100 pg/mL Normal B-TYPE 53.2 THOMAS PEP Performed By: #### L503.6620 #### [facility] [address] [facility] [place], [address] CHEST 1 VIEW Observed: 11/03/2018 Status: F Source: CHRISTOPHER (PORTABLE) 7:31 AM [facility] REPOSITORY [facility] Imaging Services [address] [place] [address] Chest 1 View (Portable) MR#: [id number] Acct: [id number] Name: ABRAN SAENZ Rep #: [id number] : 1940 F 78 From: Felicitas Mancera MD PCP: Moom Carvajal MD, Chi Status: REG ER Study: Chest 1 View (Portable) Date of Exam: 11/03/18 Exam# [id number] Ordering Dr: Orlando Shaffer DO STUDY: X-RAY CHEST REASON FOR EXAM: Female, 78 years old COMPARISON: October 30, 2018 FINDINGS: The heart is mildly enlarged. There is pulmonary vascular congestion with heavy markings seen in the medial aspect right base possibility of atelectasis/limited infiltrate cannot be ruled out. The apices are clear. The trachea is in the midline. The visualized bones are intact. No pleural effusion or pneumothorax. RAD/Chest 1 View (Portable) IMPRESSION: Pulmonary vascular congestion with limited infiltrate/atelectasis medial aspect of the right base Electronically Signed: Felicitas Mancera, at 11:52 EST Tel , Service support , CC: Orlando Shaffer DO; Momo Carvajal MD Major Account Representative: Signed DISCHARGE SUMMARY Observed: 10/31/2018 Status: F Source: SIDNEY 2:35 PM [facility] REPOSITORY [facility] Medical Records Department [address] [place] [address] Discharge Summary 10/31/18 1117 MR#: [id number] Acct: [id number] Name: ABRAN SAENZ Rep #: [id number] : 1940 78 From: Neal Pop MD PCP: Momo Carvajal MD, Chi Status: ADM IN Location: [address] ADDENDUM by Neal Pop MD on 10/31/18 at 1435 Code Visit Acute hypoxic respiratory failure secondary to viral bronchitis/bronchiolitis with suspicion of possible bacterial secondary infection: Patient is discharged on oxygen 2 L/min. Patient requires home oxygen with portability and is ambulatory in home in the community. 10/31/18 1435 <Electronically signed by Neal Pop MD> Date Neal Pop MD cc: Neal Pop MD; Momo Carvajal MD * Signed Discharge Date and Diagnosis - Problem List Patient Problems: Active and Suspected Problems Acute congestive heart failure (Acute) Date of Admission: 10/26/18 Date of Discharge: 10/31/18 - Primary Discharge Diagnosis Active and Suspected Problems Acute congestive heart failure (Acute) Acute COPD exacerbation with viral bronchitis influenza B and human [place] pneumo virus with suspicion of possible bacterial superinfection - Secondary Discharge Diagnosis Chronic Problems HTN (hypertension) (Chronic) HLD (hyperlipidemia) (Chronic) Arthrogryposis (Chronic) Single kidney (Chronic) Morbid obesity with BMI of 40.0-44.9, adult (Chronic) Hospital Course and Treatment Summary of Care Provided: This is a 78y/o female with PMHx of COPD/pulmonary hypertension, chronic diastolic CHF comes in with worsening SOB and has been managed as acute on chronic diastolic CHF and acute COPD exacerbation. Patient has symptoms of shortness of breath, sore throat, postnasal drip and URI symptoms 1. Acute hypoxic respiratory failure CHF and acute COPD exacerbation, not on oxygen at home, continue on home oxygen, SPO2 more than 92% 2. Acute on chronic diastolic CHF: Echo in January 2018 reported as EF 75%, stage 1 diastolic dysfunction, on fluid restriction, daily weights. Initially, Lasix was increased secondary to pulmonary congestion with chest x-ray findings of interstitial edema and congestion but is discontinued. Consider beta-malina as outpatient when patient is more euvolemic and COPD exacerbation/acute bronchitis resolved. Patient also has moderate pulmonary hypertension with RVSP 54 mmHg. Normal tricuspid valve. Trivial TR. Normal left atrium. Right atrium mildly enlarged. 3. CKD stage III with mild proteinuria, mild hyperkalemia and hyponatremia: Buffer Inflated Pad Dr. Chu was consulted. UA was done by sawyer cork slabs. UA shows protein 30, LE 500, RBC 5200, WBC 0-5, random sodium 7 and creatinine 30. Specific gravity 1.01 normal. Patient was given Kayexalate for K5.8. Repeat potassium is 4.1. Sodium is still low at 128. Buffer Inflated Pad recommended to continue IV fluid. Patient wants to go home. Patient was advised follow-up BMP on 11/03/[address] Carvajal. This was discussed with sawyer cork slabs Dr. Chu. 3. Acute COPD exacerbation, probably secondary to influenza B and human [place] viral bronchitis: Patient has seen Dr. Barrow before, not following with sales hunter, on IV solumedrol, breathing treatments, oral azithromycin, incentive spirometer. Continue Tamiflu as patient still comes in 48 hours window. Discussed with the respiratory therapist for chest physiotherapy/vest therapy. Patient breathing is better and has cleared mucus and rattling sensation is better. Patient was started empirically on Rocephin yesterday because of chest x-ray finding of peribronchial thickening and suspicion of possible secondary bacterial infection after viral bronchitis. 4. Hypertension, controlled, on Lisinopril, continue to monitor vitals 5. Hyperlipidemia, on statin 6. DVT PPx- Lovenox SC. 7. Asymptomatic bacteriuria/colonization: Urine culture preliminary shows gram-positive cocci possible enterococcus species, 50,000-80,000. Discussed with the pharmacist. Patient denies lower urinary tract symptoms including burning micturition, increased urgency, frequency or retention before coming to the hospital. 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 Prescription sent to pharmacy. Patient has urethral catheter which was inserted when she came because of high risk of fall on going to bathroom because patient has weak legs and wears braces due to arthrogryposis. Discharge medication reconciliation done. Discharge follow- up instructions completed. Discharge process discussed with the patient. Total time spent, exact 35 minutes on discharge meds reconciliation, examination, review of imaging and blood test and discussion with the patient on follow-up instructions. Microbiology Past 72 Hours 10/30/18 13:20 Interface Orders Urine Culture - Preliminary GPC Poss Enterococcus sp 10/25/18 01:05 Blood Culture (Wb) - Arm Left Blood Culture - Final No growth in 5 days. 10/26/18 01:15 Blood Culture (Wb) - Arm Left Blood Culture - Final No growth in 5 days. 10/30/18 13:20 Interface Orders Streptococcus pneumoniae Antigen (M - Final 10/30/18 13:20 Interface Orders Legionella Antigen - Final Laboratory Results 10/31/18 05:34: WBC 9.1, RBC 3.60 L, Hgb 10.8 L, Hct 33.1 L, MCV 91.9, MCH 30.0, MCHC 32.6, RDW 13.3, RDW Differential 43.4, Plt Count 328, MPV 9.7, Immature Gran % (Auto) 0.700, Neut % (Auto) 88.3 H, Lymph % (Auto) 5.2 L, Aurora % (Auto) 5.6, Eos % (Auto) 0.1, Baso % (Auto) 0.1, Absolute Neuts (auto) 8.0 H, Absolute Lymphs (auto) 0.47 L, Total Counted Not Reportable 10/31/18 05:34: Sodium 128 L, Potassium 4.1, Chloride 90 L, Carbon Dioxide 28.0, Anion Gap 10, BUN 35 H, Creatinine 0.53 L, Estim Creat Clear Calc 68.00, Est GFR (MDRD) Af Amer 144, Est GFR (MDRD) Non-Af 119, BUN/Creatinine Ratio 65.9 H, Glucose 153 H, Calcium 8.1 L Patient Problems: Active and Suspected Problems Acute congestive heart failure (Acute) - Physical Exam General: Alert, Oriented x3, Cooperative HEENT: Atraumatic, PERRLA, EOMI, Normocephalic Neck: Supple, No JVD, Negative Carotid Bruits Lungs: Clear to auscultation, Normal air movement, Diminished, - - Mucus rattling sound is better Cardiovascular: Regular rate, Regular Rhythm, Normal S1, Normal S2, No murmurs Abdomen: Bowel Sounds Present, Soft, Non Tender, Non-Distended, - - Urethral Aquino catheter present. Extremities: No edema, Capillary Refill Less than 3 Seconds, Edema Skin: No rashes, No breakdown Musculoskeletal: No Tenderness to Palpation of Joints or Extremities, Arthritic Changes Neurological: Cranial nerves II-XII grossly intact, Deep Tendon Reflexes 2+/4 and Symmetrical, Neuro grossly intact Psych/Mental Status: Normal Affect, Appropriate Vital Signs Temp Pulse Resp BP Pulse Ox 96.5 F L 94 16 128/68 H 94 10/31/18 06:58 10/31/18 10:33 10/31/18 10:33 10/31/18 06:58 10/31/18 06:58 Oxygen Flow Rate (L/min) 2 Oxygen Delivery Method Nasal Cannula Weight: 199 lb 1.239 oz Body Mass Index (BMI) 39.8 Intake and Output for Last 24 Hours Intake Total 541 / 541 1131 / 1131 595 / 595 Output Total 1025 / 1025 1150 / 1150 250 / 250 Balance -484 / -484 - / - 345 / 345 Microbiology Past 72 Hours 10/25/18 01:05 Blood Culture - Final Blood Culture (Wb) - Arm Left No growth in 5 days. 10/26/18 01:15 Blood Culture - Final Blood Culture (Wb) - Arm Left No growth in 5 days. Laboratory Tests Past 24 Hrs WBC 9.1 RBC 3.60 L Hgb 10.8 L Hct 33.1 L MCV 91.9 MCH 30.0 MCHC 32.6 RDW 13.3 Home Medications: Medications to take at Discharge Aspirin [Aspirin, Baby] 81 mg PO DAILY@0800 07/12/15 Atorvastatin Calcium [Lipitor] 80 mg PO QHS 07/12/15 Calcium Carb/Vitamin D [Caltrate-600 With Vit D Tab] 1 tab PO DAILY 07/12/15 Lisinopril [Zestril] 5 mg PO DAILY 07/12/15 Dibucaine [Nupercainal] 56.7 gm RC 4X/DAY PRN PRN #1 oint...g. 09/28/15 Albuterol Inhaler [Ventolin Hfa] 2 puff INHALATION Q4H PRN PRN #1 inhaler 10/31/18 Benzonatate [Tessalon Perle] 200 mg PO TID PRN PRN capsule 10/31/18 Furosemide 40 mg PO DAILY #0 10/31/18 Guaifenesin [Mucinex] 1,200 mg PO BID #14 tablet 10/31/18 Oseltamivir Phosphate [Tamiflu] 30 mg PO X1 #1 capsule 10/31/18 Following Prescrptions Were Given to Patient: Albuterol Inhaler [Ventolin Hfa] 2 puff INHALATION Q4H PRN PRN #1 inhaler PRN Reason: Shortness Of Breath Oseltamivir Phosphate [Tamiflu] 30 mg PO X1 #1 capsule Guaifenesin [Mucinex] 1,200 mg PO BID #14 tablet Primary Care Physician: Momo Carvajal Chi, MD [Primary Care Provider] - Please follow up with your Primary Care Physician in: On 11/03 with BMP for hyponatremia Please Follow Up With: Louise Chu DO When: In 2 weeks for single kidney with hyponatremia Medical Necessity - Tobacco Use Smoking Status: Never smoker Meaningful Use Info Meaningful Use Diagnoses (Choose all that apply): None applicable Code Visit Inpatient E AND M: 84469 Disch Hosp 10/31/18 1308 <Electronically signed by Neal Pop MD> Date Neal Pop MD Cosigner Signature (if applicable): Date CC: Neal Pop MD; Momo Carvajal MD Signed 12 LEAD ELECTROCARDIOGRAM Observed: 10/31/2018 Status: F Source: SIDNEY 2:12 PM [facility] REPOSITORY [facility] Cardiovascular Services [address] [place] [address] 12 Lead EKG 10/29/18 0853 MR#: [id number] Acct: [id number] Name: ABRAN SAENZ Rep #: [id number] : 1940 78 From: Gamaliel Capellan MD Attending Dr: Neal Pop MD Status: ADM IN Ordering Dr: Neal Pop MD Date: 10/29/18 Location: [facility] Sex: F C Admitted: 10/26/18 Test Reason : ARRYTHMIA Blood Pressure : / mmHG Vent. Rate : 107 BPM Atrial Rate : 107 BPM P-R Int : 188 ms QRS Dur : 084 ms QT Int : 314 ms P-R-T Axes : 062 000 053 degrees QTc Int : 419 ms Sinus tachycardia Possible Left atrial enlargement Cannot rule out Anterior infarct , age undetermined Abnormal ECG When compared with ECG of 25-OCT-2018 23:32, MANUAL COMPARISON REQUIRED, DATA IS UNCONFIRMED Confirmed by GAMALIEL CAPELLAN MD ([id number]), newspaper managing editor LEON DURAN ([id number]) on 10/31/2018 2:11:58 PM Referred By: DONN Confirmed By:GAMALIEL CAPELLAN MD 10/31/18 1412 Date Gamaliel Capellan MD CC: Neal Pop MD; Momo Carvajal MD Signed DISCHARGE INSTRUCTION Observed: 10/31/2018 Status: F Source: SIDNEY 1:09 PM [facility] REPOSITORY [facility] Medical Records Department [address] [place] [address] Instructions for Home/Discharge Instructions 10/31/18 1115 MR#: [id number] Acct: [id number] Name: ABRAN SAENZ Rep #: [id number] : 1940 78 From: Neal Pop MD PCP: Momo Carvajal MD, Chi Status: ADM IN - Discharge Diagnoses Current Active Problems: Current Active and Chronic Problems Acute congestive heart failure (Acute) You will use the following diet at home:: Cardiac Discharge Activity: May Not Drive Weight Bearing Status: Weight bearing as tolerated Call your doctor if you observe: Fever of 101 or Higher, Inability to urinate, Inability to have a bowel movement, Shortness of breath, Fainting spells, Swelling in the ankles, Chest pain, Increased palpitations (irregular heartbeat) Allergies/Adverse Reactions: Allergies No Known Allergies Allergy (Verified 01/26/18 19:43) Medications to take at Discharge Aspirin [Aspirin, Baby] 81 mg PO DAILY@0800 07/12/15 Atorvastatin Calcium [Lipitor] 80 mg PO QHS 07/12/15 Calcium Carb/Vitamin D [Caltrate-600 With Vit D Tab] 1 tab PO DAILY 07/12/15 Lisinopril [Zestril] 5 mg PO DAILY 07/12/15 Dibucaine [Nupercainal] 56.7 gm RC 4X/DAY PRN PRN #1 oint...g. 09/28/15 Albuterol Inhaler [Ventolin Hfa] 2 puff INHALATION Q4H PRN PRN #1 inhaler 10/31/18 Amoxicillin 500 mg PO TID #15 tablet 10/31/18 Benzonatate [Tessalon Perle] 200 mg PO TID PRN PRN capsule 10/31/18 Furosemide 40 mg PO DAILY #0 10/31/18 Guaifenesin [Mucinex] 1,200 mg PO BID #14 tablet 10/31/18 Oseltamivir Phosphate [Tamiflu] 30 mg PO X1 #1 capsule 10/31/18 The following prescriptions were given: Albuterol Inhaler [Ventolin Hfa] 2 puff INHALATION Q4H PRN PRN #1 inhaler PRN Reason: Shortness Of Breath Oseltamivir Phosphate [Tamiflu] 30 mg PO X1 #1 capsule Guaifenesin [Mucinex] 1,200 mg PO BID #14 tablet Amoxicillin 500 mg PO TID #15 tablet Primary Care Physician: Momo Carvajal Chi, MD [Primary Care Provider] - Please follow up with your Primary Care Physician in: On Sat, 11/03 with BMP for hyponatremia Test Results: Test results from this visit will be discussed in further detail at your follow-up appointment, if applicable. Please Follow Up With: Louise Chu DO When: In 2 weeks for single kidney with hyponatremia 10/31/18 1309 <Electronically signed by Neal Pop MD> Date Neal Pop MD CC: Louise Chu DO; Momo Carvajal MD Signed Observed: 10/31/2018 Status: F Source: CHRISTOPHER CULTURE, SPUTUM 12:10 PM [facility] REPOSITORY Gram Stain Acceptable Specimen? Yes (<25 Epithelial cells per/lpf) Gram Stain 3+ Gram positive cocci 1+ Gram positive rods Rare White Blood Cells Resp. Culture Mixed normal respiratory yesika. No Haemophilus, Streptococcus pneumoniae, beta-hemolytic Streptococcus or Staphylococcus aureus isolated. Performed By: #### M100.0800 #### [facility] [place], [address] BASIC METABOLIC Collected: 10/31/2018 Status: F Source: CHRISTOPHER PROFILE (BMP) 5:34 AM [facility] REPOSITORY TYPE CODE TESTS RESULT OUT OF RANGE REFERENCE UNITS LAB L501.0100 74-106 mg/dL High GLU 153 Result Comment: Fasting Glucose result greater than or equal to 126 mg/dL suggests DIABETES MELLITUS per A.D.A. criteria. Please note revised GLUCOSE reference range effective 2017. LAB L501.1000 7-18 mg/dL High BUN 35 LAB L501.1100 0.55-1.02 mg/dL Low CREAT,SERUM 0.53 Result Comment: The validity of the calculated GFR AND GFRAA in patients over 70 years has not been determined. Clinical correlation is essential. LAB L501.1110 >60 mL/min Normal EST GFR 119 Result Comment: Non- GFR Calc LAB L501.1115 >60 mL/min Normal EST GFR - AA 144 Result Comment: GFR Calc LAB L501.1255 ml/min Normal Estimated CRCL 68.00 LAB L501.1300 10-20 RATIO High BUN/CRE 65.9 LAB L501.2200 8.5-10 mg/dL Low .1 CA 8.1 LAB L501.5300 136-14 mmol/L Low 5 NA 128 LAB L501.5600 3.5-5. mmol/L Normal 1 K 4.1 LAB L501.5900 98-107 mmol/L Low CL 90 LAB L501.6100 21.0-3 mmol/L Normal 2.0 CO2 28.0 LAB L501.6200 5-15 Normal GAP 10 Performed By: #### L500.2500 #### [facility] Laboratory [address] [place], [place] [address], [address] CBC W/DIFF, AUTOMATED Collected: 10/31/2018 Status: F Source: CHRISTOPHER 5:34 AM [facility] REPOSITORY TYPE CODE TESTS RESULT OUT OF RANGE REFERENCE UNITS LAB L100.1000 4.4-11.0 K/mm3 Normal WBC 9.1 LAB L100.1200 4.2-5.4 M/mm3 Low RBC 3.60 LAB L100.1300 12.0-15.0 g/dl Low HGB 10.8 LAB L100.1400 37-47 % Low HCT 33.1 LAB L100.1500 81-99 fL Normal MCV 91.9 LAB L100.1600 27.0-32.0 pg Normal MCH 30.0 LAB L100.1700 32-36 g/gl Normal MCHC 32.6 LAB L100.1810 11.6-14.6 % Normal RDW CV 13.3 LAB L100.1820 35.1-43.9 fl Normal RDW SD 43.4 LAB L100.1900 150-450 K/mm3 Normal PLT 328 LAB L100.2000 6.2-12.0 fl Normal MPV 9.7 LAB L100.2100 47-70 % High NEUT% 88.3 LAB L100.2200 19-41 % Low LY% 5.2 LAB L100.2300 0-10 % Normal MONO% 5.6 LAB L100.2400 0-5 % Normal EO% 0.1 LAB L100.2500 0-1 % Normal BASO% 0.1 LAB L100.2550 0.0-0.9 % Normal IM GRAN % 0.700 Result Comment: IG% - Immature Granulocytes (promyelocytes, myelocytes and metamyelocytes) > 1% indicates that a LEFT SHIFT is Present. LAB L100.2620 2.0-7.7 X10 3/uL High Absolute Neut 8.0 LAB L100.2720 0.83-4.51 X10 3/ul Low Absolute Lymph 0.47 Performed By: #### L100.0100 #### [facility] [address] [facility] [place], [address] CONSULTATION Observed: 10/30/2018 Status: F Source: SIDNEY 9:29 PM [facility] REPOSITORY [facility] Medical Records Department [address] [place] [address] Consultation 10/29/18 1204 MR#: [id number] Acct: [id number] Name: ABRAN SAENZ Rep #: [id number] : 1940 78 From: Louise Chu DO PCP: Momo Carvajal MD, Chi Status: ADM IN Location: [place] [id number] Consultation - Renal 10/29/18 PCP/ Referring MD: Requesting physician: Dr Pop Primary care physician: Momo Carvajal MD Reason for Consultation:: solitary kidney renal mgmt, hyponatremia, hyperkalemia - History of Present Illness History of Present Illness: The patient is a 78 year old short statured, obese female w/ h/o arthrogryposis since age 10, solitary kidney disease s/p rt nephrectomy for chronic UTI, chronic systolic heart failure, COPD, pulmonary HTN, and HTN is admitted for SOB. She has been feeling ill for the past few days since Saturday with myalgia. She thought she has a cold. She was hypoxic at home with O2 at 78%. She started with a productive cough with white phlegm. Denies fever, chills. Denied chest pain. She had no urinary complaints. Her lasix dose was increased from 40mg daily to 80mg daily last week by pcp. Resp panel positive for Influenza B with human metapneumovirus. She refused flu shot in the past. She continues with cough and wheezing. She is concerned about her kidney fxn. with having 1 kidney. Appetite fair. Denies nausea, vomiting. Potassium elevated at 5.8 with sodium 126 today. Currently on solumedrol. - Allergies Allergies: Allergies No Known Allergies Allergy (Verified 01/26/18 19:43) - Current Medications Current Medications: Current Medications Albuterol Sulfate (Ventolin Aerosols) 2.5 mg INHALATION Q2H PRN PRN PRN Reason: SOB AND /OR WHEEZING Last Admin: 10/29/18 01:00 Dose: 2.5 mg Albuterol/Ipratropium (Duoneb) 3 ml INHALATION Q4HWA.RT [facility] Last Admin: 10/29/18 10:59 Dose: 3 ml Aspirin (Aspirin, Baby) 81 mg PO DAILY@0800 [facility] Last Admin: 10/29/18 08:52 Dose: 81 mg Atorvastatin Calcium (Lipitor) 80 mg PO QHS [facility] Last Admin: 10/28/18 21:06 Dose: 80 mg Benzonatate (Tessalon Perle) 200 mg PO TID [facility] Calcium/Vitamin D (Os-Guillermo 500mg + D) 1 tablet PO DAILY [facility] Last Admin: 10/29/18 08:52 Dose: 1 tablet Dibucaine (Dibucaine) 1 applic TOPICAL 4X/DAY PRN PRN PRN Reason: anal pain Enoxaparin Sodium (Lovenox) 40 mg SC DAILY [facility] Last Admin: 10/29/18 08:52 Dose: Not Given Furosemide (Lasix) 40 mg IV Q12H [facility] Guaifenesin (Mucinex) 1,200 mg PO BID [facility] Sodium Chloride () 250 mls @ 15 mls/hr IV .[id number] PRN PRN Reason: SALINE FLUSH Last Admin: 10/26/18 17:14 Dose: 15 mls/hr Lisinopril (Zestril) 5 mg PO DAILY [facility] Last Admin: 10/29/18 08:52 Dose: 5 mg Methylprednisolone (Solu-Medrol) 40 mg IV Q8 [facility] Last Admin: 10/29/18 05:42 Dose: 40 mg Oseltamivir Phosphate (Tamiflu) 30 mg PO BID [facility] Stop: 10/31/18 22:01 Last Admin: 10/29/18 08:52 Dose: 30 mg Sodium Chloride () 5 - 15 ml IV UD PRN PRN Reason: SALINE FLUSH Last Admin: 10/29/18 05:42 Dose: 10 ml - Past Medical History Past Medical History (Chronic Problems): Chronic Problems HTN (hypertension) (Chronic) HLD (hyperlipidemia) (Chronic) Arthrogryposis (Chronic) Single kidney (Chronic) Morbid obesity with BMI of 40.0-44.9, adult (Chronic) - Past Surgical History Surgical History: - - R Nephrectomy, Minor Surgey on the L Kidney, notable BL UE and LE corrective surgeries in her youth. - Social History Marital Status: Smoking Status: Never smoker - Family History Maternal History Items: Heart Disease Paternal History Items: Heart Disease Review of Systems Constitutional: Reports: Malaise, Weakness, Fatigue. Denies: Anorexia, Chills, Fever Eyes: Denies: Blurred vision HEENT: Denies: Head Aches Cardiovascular: Denies: Chest Pain, Edema, Palpitations, Syncope Respiratory: Reports: Cough, Shortness of breath at rest, Sputum production - white phlegm, Wheezing. Denies: Hemoptysis Gastrointestinal: Denies: Abdominal Pain, Diarrhea, Nausea, Vomiting Genitourinary: Denies: Dysuria Musculoskeletal: Reports: - - limited ROM upper extrem, uses walker at home Neurological: Reports: Balance problems. Denies: Confusion, Tremor, Seizures Psychiatric: Denies: Anxiety, Depression Hematologic/ Lymphatic: Denies: Anemia Patient Problems: Active and Suspected Problems Acute congestive heart failure (Acute) - Physical Exam General: Alert, Oriented x3, Cooperative, No apparent distress, - - moist cough HEENT: PERRLA, EOMI Oral: Moist Mucosa Lungs: Rhonchi, Wheezes Cardiovascular: Regular rate, Murmur, No rub noted Abdomen: Bowel Sounds Present, Soft, Non Tender, Non-Distended, Obese Extremities: No edema, - - deformed extremities, limited ROM upper extrem, unable to raise arms Skin: No rashes Musculoskeletal: No Muscle Wasting Lymphatic: No Cervical, Supraclavicular, or Inguinal Adenopathy Neurological: - - debilitated chronically Psych/Mental Status: Normal Affect, Appropriate, Alert and oriented to time, place, person, mood and affect Vital Signs Temp Pulse Resp BP Pulse Ox 98.2 F 101 H 19 H 111/79 96 10/29/18 08:26 10/29/18 11:03 10/29/18 10:59 10/29/18 08:26 10/29/18 08:26 Oxygen Flow Rate (L/min) 1.5 Oxygen Delivery Method Nasal Cannula Weight: 88.6 kg Body Mass Index (BMI) 39.8 Intake and Output for Last 24 Hours Intake Total 1082 / 1082 2080 / 2080 60 / 60 Output Total 2900 / 2900 1550 / 1550 200 / 200 Balance -1818 / -1818 530 / 530 -140 / -140 Microbiology Past 72 Hours 10/26/18 01:15 Blood Culture - Preliminary Blood Culture (Wb) - Arm Left No growth in 48 hours. 10/25/18 01:05 Blood Culture - Preliminary Blood Culture (Wb) - Arm Left No growth in 48 hours. Laboratory Tests Past 24 Hrs Sodium 126 L Potassium 5.8 H Chloride 93 L Carbon Dioxide 24.0 Anion Gap 9 BUN 41 H Clinical Impression(s) from Imaging Studies Chest X-Ray 10/28/18 14:06 IMPRESSION: Continued congestion and pulmonary edema with cardiomegaly. Electronically Signed: Jonny Andrade MD at 17:29 EST , Service support , Assessment/Plan All Active Problems Hypoxia (Acute) Pneumonia (Acute) Sepsis (Acute) Shortness of breath (Acute) Acute congestive heart failure (Acute) 1. Hyponatremia may be from diuretics vs adrenal insuff vs SIADH due to pulmonary process. Check urine sodium. TSH stable. Hold lasix. 2. Hyperkalemia follow low K diet. Kayexalate ordered 3. SOB, Acute hypoxemia with wheezing due to influenza B and human metapneumovirus. BNP low at 98. 4. acute Exacerbation COPD on oxygen. 5. Hx solitary kidney disease s/p rt nephrectomy for chronic infection 6. Arthrogyposis with debilitation, limited ROM 10/30/182128 <Electronically signed by Louise Chu DO> Date Louise Chu DO Cosigner Signature (if applicable): Date CC: Louise Chu DO; Momo Carvajal MD Signed Observed: 10/30/2018 Status: F Source: CHRISTOPHER LEGIONELLA ANTIGEN 1:20 PM [facility]INE REPOSITORY Interface Comments: use off of urine already collected Legionella, UR Legionella Antigen result interpretation: Negative Presumptive negative for Legionella pneumophila serogroup 1 antigen in urine, suggesting no recent or current infection. Legionella Ag, Urine Negative (See interpretation below) Performed By: #### M300.4500 #### [facility] [address]. [place], [place], [address] STREP Observed: 10/30/2018 Status: F Source: CHRISTOPHER PNEUMONIAE ANTIG(UR,CSF) 1:20 PM [facility] REPOSITORY Interface Comments: use of of urine already collected S pneumo Ag [] Negative Urine Presumptive negative for pneumococcal pneumonia, suggesting no current or recent pneumococcal infection. Infection due to S pneumoniae cannot be ruled out since the antigen present in the sample may be below the detection limit of the test. Strep pneumo Test Negative URINE (See interpretation below) Performed By: #### M300.4600 #### [facility] [address] [place], [address] Observed: 10/30/2018 Status: F Source: CHRISTOPHER CULTURE, URINE 1:20 PM [facility] Comments: add to UA please Urine Culture ORGANISM 1: Enterococcus faecalis Cameron Count 50,000-80,000 Enterococcus faecalis: REACTION Ampicillin $ <=2 S Benzylpenicillin NF 4 S Gentamicin SYN-S S Linezolid $$$$ 2 S Tigecycline $$$$ <=0.12 S Streptomycin $ SYN-R R Vancomycin $ 1 S (NF) indicates non-formulary drug at [facility]. Approval by Infectious Disease Specialist required before non-formulary drugs may be ordered and/or dispensed. * CLSI guidelines does not recommend testing of cephalosporins. This interpretation is deduced from Beta-lactam/penicillin results. Performed By: #### M100.0650 #### [facility] [address] [place], [address] CHEST PA AND LATERAL Observed: 10/30/2018 Status: F Source: SIDNEY 12:21 PM [facility] REPOSITORY [facility] Imaging Services [address] [place] [address] Chest PA and Lateral MR#: [id number] Acct: [id number] Name: ABRAN SAENZ Rep #: [id number] : 1940 F 78 From: Gilson Poole MD PCP: Wei PRYOR,Momo Pfeiffer Status: ADM IN Study: Chest PA and Lateral Date of Exam: 10/30/18 Exam# [id number] Ordering Dr: Neal Pop MD STUDY: X-RAY CHEST REASON FOR EXAM: Female, 78 years old. Shortness of breath, wheezing. TECHNIQUE: Upright AP and lateral views of the chest. A portion of the anterior chest is again obscured by the patient's overlapping upper arms. COMPARISON: Upright AP and lateral chest x-ray October 28, 2018. FINDINGS: There is borderline improved aeration in the lung bases with some persistent stranding of subsegmental atelectasis, chronic peribronchial inflammatory change or residual venous congestion in the right base. There is no demonstrated pleural abnormality. There is stable moderate cardiac enlargement. There is stable widening of the mediastinum that could reflect a degree of venous congestion. Normal visualized biapical pulmonary arteries. Normal visualized aortic arch and descending thoracic aorta. There is stable reversal of the normal kyphosis of the thoracic spine, resulting in a narrowed anterior posterior diameter of the chest that may augment the apparent cardiac enlargement on the frontal image. 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 There is no demonstrated abnormality of the visualized soft tissue structures of the upper abdomen. RAD/Chest PA and Lateral IMPRESSION: 1. Stable cardiac enlargement and mediastinal widening, both which may be augmented by the narrowed central anterior to posterior diameter of the chest in this patient with a mild thoracic lordosis. 2. Improved basilar aeration with residual subsegmental atelectasis, chronic peribronchial thickening, or congestive change in the right base. Electronically Signed: Christopher Poole MD at 14:52 EST , Service support , CC: Neal Pop MD; Momo Carvajal MD Major Account Representative: Signed BNP,B-TYPE NATRIURETIC Collected: 10/30/2018 Status: F Source: CHRISTOPHER PEPTIDE 7:50 AM [facility] REPOSITORY TYPE CODE TESTS RESULT OUT OF RANGE REFERENCE UNITS LAB L503.6620 0-100 pg/mL Normal B-TYPE 66.1 THOMAS PEP Performed By: #### L503.6620 #### [facility] [place], [address] BASIC METABOLIC Collected: 10/30/2018 Status: F Source: CHRISTOPHER PROFILE (BMP) 7:50 AM [facility] REPOSITORY TYPE CODE TESTS RESULT OUT OF RANGE REFERENCE UNITS LAB L501.0100 74-106 mg/dL High GLU 142 Result Comment: Fasting Glucose result greater than or equal to 126 mg/dL suggests DIABETES MELLITUS per A.D.A. criteria. Please note revised GLUCOSE reference range effective 2017. LAB L501.1000 7-18 mg/dL High BUN 40 LAB L501.1100 0.55-1.02 mg/dL Normal CREAT,SERUM 0.59 Result Comment: The validity of the calculated GFR AND GFRAA in patients over 70 years has not been determined. Clinical correlation is essential. LAB L501.1110 >60 mL/min Normal EST GFR 106 Result Comment: Non- GFR Calc LAB L501.1115 >60 mL/min Normal EST GFR - AA 128 Result Comment: GFR Calc LAB L501.1255 ml/min Normal Estimated CRCL 68.00 LAB L501.1300 10-20 RATIO High BUN/CRE 67.9 LAB L501.2200 8.5-10 mg/dL Low .1 CA 8.0 LAB L501.5300 136-14 mmol/L Low 5 NA 128 LAB L501.5600 3.5-5. mmol/L Normal 1 K 3.7 LAB L501.5900 98-107 mmol/L Low CL 89 LAB L501.6100 21.0-3 mmol/L Normal 2.0 CO2 27.0 LAB L501.6200 5-15 Normal GAP 12 Performed By: #### L500.2500 #### [facility] [address] [place], [address] BASIC METABOLIC Collected: 10/29/2018 Status: F Source: SIDNEY PROFILE (BMP) 6:00 PM [facility] REPOSITORY TYPE CODE TESTS RESULT OUT OF RANGE REFERENCE UNITS LAB L501.0100 74-106 mg/dL High GLU 162 Result Comment: Fasting Glucose result greater than or equal to 126 mg/dL suggests DIABETES MELLITUS per A.D.A. criteria. Please note revised GLUCOSE reference range effective 2017. LAB L501.1000 7-18 mg/dL High BUN 40 LAB L501.1100 0.55-1.02 mg/dL Normal CREAT,SERUM 0.75 Result Comment: The validity of the calculated GFR AND GFRAA in patients over 70 years has not been determined. Clinical correlation is essential. LAB L501.1110 >60 mL/min Normal EST GFR 80 Result Comment: Non- GFR Calc LAB L501.1115 >60 mL/min Normal EST GFR - AA 96 Result Comment: GFR Calc LAB L501.1255 ml/min Normal Estimated CRCL 66.94 LAB L501.1300 10-20 RATIO High BUN/CRE 53.3 LAB L501.2200 8.5-10 mg/dL Normal .1 CA 8.5 LAB L501.5300 136-14 mmol/L Low 5 NA 129 LAB L501.5600 3.5-5. mmol/L Normal 1 K 4.2 LAB L501.5900 98-107 mmol/L Low CL 88 LAB L501.6100 21.0-3 mmol/L Normal 2.0 CO2 30.0 LAB L501.6200 5-15 Normal GAP 11 Performed By: #### L500.2500 #### [facility] [address] [place], [address] 12 LEAD ELECTROCARDIOGRAM Observed: 10/29/2018 Status: F Source: SIDNEY 3:29 PM [facility] REPOSITORY [facility] Cardiovascular Services [address] [place] [address] 12 Lead EKG 10/25/18 2332 MR#: [id number] Acct: [id number] Name: ABRAN SAENZ Rep #: [id number] : 1940 78 From: Gamaliel Capellan MD Attending Dr: Neal Pop MD Status: ADM IN Ordering Dr: Juan Khalil MD Date: 10/25/18 Location: [facility] Sex: F C Admitted: 10/26/18 Test Reason : SOB Blood Pressure : / mmHG Vent. Rate : 087 BPM Atrial Rate : 087 BPM P-R Int : 240 ms QRS Dur : 064 ms QT Int : 348 ms P-R-T Axes : 067 -06 055 degrees QTc Int : 418 ms Sinus rhythm with 1st degree A-V block Biatrial enlargement Pulmonary disease pattern Septal infarct , age undetermined Inferior infarct , age undetermined Abnormal ECG Confirmed by GAMALIEL CAPELLAN MD ([id number]), newspaper managing editor LEON DURAN ([id number]) on 10/29/2018 3:29:24 PM Referred By: TOM Confirmed By:GAMALIEL CAPELLAN MD 10/29/18 1529 Date Gamaliel Capellan MD CC: Juan Khalil MD; Neal Pop MD; Momo Carvajal MD Signed URINALYSIS, COMPLETE Collected: 10/29/2018 Status: F Source: CHRISTOPHER 1:20 PM [facility] REPOSITORY Order Comment: How was Urine Obtained? SENIOR INSTRUMENTATION ENGINEER TO SPECIFY TYPE CODE TESTS RESULT OUT OF RANGE REFERENCE UNITS LAB L400.3000 Yellow COLOR Normal Yellow LAB L400.3050 Clear Normal CLARITY Sl. Cloudy LAB L400.3200 Normal mg/dl Normal GLUCOSE, UR Normal LAB L400.3300 Negative mg/dL Normal BILIRUBIN URINE Negative LAB L400.3400 Negative mg/dl Normal KETONE UR Negative LAB L400.3465 1.002-1.030 Normal SP.GR. DIPSTX 1.010 LAB L400.3550 5.0 - 8.0 pH UR Normal 6.0 LAB L400.3600 Negative mg/dl High PROT 30 DIPSTX LAB L400.3700 Normal mg/dl Normal UROBILI Normal LAB L400.3750 Negative Normal NITRITE UR Negative LAB L400.3780 Negative /ul High OCCULT BLOOD-UR 250 LAB L400.3800 Negative /ul High LEUK ESTERASE 500 LAB L400.4050 0-5 /hpf WBC Normal 0-5 SEEN LAB L400.4100 0-5 /hpf Normal RBC-UA 50-100 SEEN LAB L400.4150 5-10 /hpf SQUAM Normal EPI 0-5 SEEN LAB L400.4300 None Seen /hpf 1+ Normal BACTERIA LAB L400.4350 <or=2+ /hpf 1+ Normal MUCUS, URINE Performed By: #### L400.0001 #### [facility] [address] [place], [place], [address] URINE SODIUM Collected: 10/29/2018 Status: F Source: CHRISTOPHER 1:20 PM [facility] REPOSITORY TYPE CODE TESTS RESULT OUT OF RANGE REFERENCE UNITS LAB L501.5500 Not Establ. mmol/L Normal UR NA 7 Performed By: #### L501.5500 #### [facility] [address] [facility] [place], [address] CREATININE, URINE Collected: 10/29/2018 Status: F Source: CHRISTOPHER (RANDOM) 1:20 PM [facility] REPOSITORY TYPE CODE TESTS RESULT OUT OF RANGE REFERENCE UNITS LAB L501.1200 NO RANGE EST. mg/dL Normal UR CREAT 30.40 Performed By: #### L501.1200 #### [facility] [address] [place], [address] BASIC METABOLIC Collected: 10/29/2018 Status: F Source: CHRISTOPHER PROFILE (BMP) 1:02 PM [facility] REPOSITORY TYPE CODE TESTS RESULT OUT OF RANGE REFERENCE UNITS LAB L501.0100 74-106 mg/dL High GLU 175 Result Comment: Fasting Glucose result greater than or equal to 126 mg/dL suggests DIABETES MELLITUS per A.D.A. criteria. Please note revised GLUCOSE reference range effective 2017. LAB L501.1000 7-18 mg/dL High BUN 42 LAB L501.1100 0.55-1.02 mg/dL Normal CREAT,SERUM 0.86 Result Comment: The validity of the calculated GFR AND GFRAA in patients over 70 years has not been determined. Clinical correlation is essential. LAB L501.1110 >60 mL/min Normal EST GFR 68 Result Comment: Non- GFR Calc LAB L501.1115 >60 mL/min Normal EST GFR - AA 82 Result Comment: GFR Calc LAB L501.1255 ml/min Normal Estimated CRCL 77.84 LAB L501.1300 10-20 RATIO High BUN/CRE 48.6 LAB L501.2200 8.5-10 mg/dL Normal .1 CA 8.6 LAB L501.5300 136-14 mmol/L Low 5 NA 130 LAB L501.5600 3.5-5. mmol/L Normal 1 K 4.7 LAB L501.5900 98-107 mmol/L Low CL 91 LAB L501.6100 21.0-3 mmol/L Normal 2.0 CO2 29.0 LAB L501.6200 5-15 Normal GAP 10 Performed By: #### L500.2500 #### [facility] [address] [place], [address] KIDNEY AND BLADDER Observed: 10/29/2018 Status: F Source: CHRISTOPHER 12:14 PM [facility] REPOSITORY [facility] Imaging Services [address] [place] [address] Kidney and Bladder MR#: [id number] Acct: [id number] Name: ABRAN SAENZ Rep #: [id number] : 1940 F 78 From: Jonny Andrade MD PCP: Momo Carvajal MD, Chi Status: ADM IN Study: Kidney and Bladder Date of Exam: 10/29/18 Exam# [id number] Ordering Dr: Louise Chu DO STUDY: RENAL ULTRASOUND - COMPLETE REASON FOR EXAM: Female, 78 years old. Renal insufficiency. TECHNIQUE: Ultrasound evaluation of the kidneys was performed with real-time and static wiggins-scale imaging. COMPARISON: None. FINDINGS: RIGHT KIDNEY: Surgically absent. LEFT KIDNEY: Normal location of the left kidney, which is normal in size. The left kidney measures 11.0 x 4.8 x 5.0 cm. There is a normal cortex of the left kidney. The renal cortex measures 1.3 cm. There is no left renal mass or cyst. 2 nonobstructing stones are seen, measuring 5 mm and 9 mm. There is no left hydronephrosis. DISTAL LEFT URETER: There is non-visualization of the distal left ureter. There is no demonstrated left ureterovesical junction calculus. There is no demonstrated left ureteral jet. US/Kidney and Bladder IMPRESSION: Absent right kidney. 2 nonobstructing stones of the left kidney. No acute abnormality of the left kidney. No hydronephrosis. Electronically Signed: Jonny Andrade MD at 20:22 EST , Service support , CC: Louise Chu DO; Momo Carvajal MD Major Account Representative: Signed BASIC METABOLIC Collected: 10/29/2018 Status: F Source: CHRISTOPHER PROFILE (BMP) 5:45 AM [facility] REPOSITORY TYPE CODE TESTS RESULT OUT OF RANGE REFERENCE UNITS LAB L501.0100 74-106 mg/dL High GLU 176 Result Comment: Fasting Glucose result greater than or equal to 126 mg/dL suggests DIABETES MELLITUS per A.D.A. criteria. Please note revised GLUCOSE reference range effective 2017. LAB L501.1000 7-18 mg/dL High BUN 41 LAB L501.1100 0.55-1.02 mg/dL Normal CREAT,SERUM 0.72 Result Comment: The validity of the calculated GFR AND GFRAA in patients over 70 years has not been determined. Clinical correlation is essential. LAB L501.1110 >60 mL/min Normal EST GFR 84 Result Comment: Non- GFR Calc LAB L501.1115 >60 mL/min Normal EST GFR - AA 102 Result Comment: GFR Calc LAB L501.1255 ml/min Normal Estimated CRCL 66.87 LAB L501.1300 10-20 RATIO High BUN/CRE 57.1 LAB L501.2200 8.5-10 mg/dL Low .1 CA 8.3 LAB L501.5300 136-14 mmol/L Low 5 NA 126 LAB L501.5600 3.5-5. mmol/L High 1 K 5.8 LAB L501.5900 98-107 mmol/L Low CL 93 LAB L501.6100 21.0-3 mmol/L Normal 2.0 CO2 24.0 LAB L501.6200 5-15 Normal GAP 9 Performed By: #### L500.2500, L501.5200 #### [facility] [address] [place], [address] MAGNESIUM Collected: 10/29/2018 Status: F Source: SIDNEY 5:45 AM [facility] REPOSITORY TYPE CODE TESTS RESULT OUT OF RANGE REFERENCE UNITS LAB L501.5200 1.6-2.6 mg/dL Normal MG 1.9 Performed By: #### L500.2500, L501.5200 #### [facility] [address] [place], [address] CHEST PA AND LATERAL Observed: 10/28/2018 Status: F Source: SIDNEY 12:30 PM [facility] REPOSITORY [facility] Imaging Services [address] [place] [address] Chest PA and Lateral MR#: [id number] Acct: [id number] Name: EUGENEABRAN L Rep #: [id number] : 1940 F 78 From: Jonny Andrade MD PCP: Momo Carvajal MD, Chi Status: ADM IN Study: Chest PA and Lateral Date of Exam: 10/28/18 Exam# [id number] Ordering Dr: Neal Pop MD STUDY: X-RAY CHEST REASON FOR EXAM: Female, 78 years old. Short of breath TECHNIQUE: Frontal and lateral views of the chest. COMPARISON: 10/26/2018. FINDINGS: Moderate lung volumes. There is diffuse hazy density and prominence of the bronchovascular markings in both lungs, most consistent with congestive failure and pulmonary edema.. Findings similar to prior study. No gross effusions are seen. There is moderate cardiac enlargement. Normal mediastinum and fouzia. Normal visualized pulmonary arteries. Normal visualized aortic arch and descending thoracic aorta. There are diffuse degenerative changes of the visualized thoracic spine. Normal visualized ribs, clavicles, and shoulders. There is no demonstrated abnormality of the visualized soft tissue structures of the upper abdomen. RAD/Chest PA and Lateral IMPRESSION: Continued congestion and pulmonary edema with cardiomegaly. Electronically Signed: Jonny Andrade MD at 17:29 EST , Service support , CC: Neal Pop MD; Momo Carvajal MD Major Account Representative: Signed ECHOCARDIOGRAM COMPLETE Observed: 10/27/2018 Status: F Source: SIDNEY 4:15 PM [facility] REPOSITORY [facility] Cardiovascular Services [address] [place] [address] Echo Complete 10/27/18 1128 MR#: [id number] Acct: [id number] Name: ABRAN SAENZ Rep #: [id number] : 1940 78 From: Gamaliel Capellan MD Attending Dr: Neal Pop MD Status: ADM IN Ordering Dr: Mike Rushing MD Date: 10/26/18 Location: [facility] Sex: F C Admitted: 10/26/18 Reason For Study: CHF Procedure This was a 2D Doppler, Color Flow transthoracic echocardiogram. Exam performed portable in patient room. Left Ventricle Normal LV size. Left ventricular systolic function is normal. The estimated ejection fraction is 60 %. Stage 1 diastolic dysfunction. No regional wall motion abnormalities noted. Right Ventricle Normal RV size. Normal systolic function. Atria Normal left atrium. Normal right atrium. Mitral Valve Normal mitral valve. Tricuspid Valve Normal tricuspid valve. Mild (1+) tricuspid valve insufficiency. Pulmonary artery systolic pressure is 46 mmHg. Aortic Valve The aortic valve is not well visualized. Pulmonic Valve Normal pulmonic valve. Great Vessels Normal aortic root. The pulmonary artery is normal size. Normal inferior vena cava. Pericardium/Pleural Small pericardial effusion. MMode/2D Measurements AND Calculations LVIDd: 3.6 cm IVSd: 0.93 cm Ao root diam: 2.6 cm LVIDs: 2.4 cm LVPWd: 0.97 cm RVDd: 2.7 cm FS: 34.3 % LAV(MOD-bp): 52.0 ml LVAd ap4: 16.5 cm2 SV(MOD-sp4): 26.7 ml LAV(MOD-bp) Indexed: 29.2 ml/m2 EDV(MOD-sp4): 35.1 ml LAV(MOD-sp2): 61.1 ml EDV(sp4-el): 36.2 ml LAV(MOD-sp4): 43.7 ml LVAs ap4: 7.5 cm2 ESV(MOD-sp4): 8.4 ml ESV(sp4-el): 8.6 ml EF(MOD-sp4): 76.0 % EF(sp4-el): 76.4 % SV(sp4-el): 27.7 ml LA A4 area: 18.7 cm2 LA dimension(2D): 2.5 cm RA A4 area: 11.7 cm2 Doppler Measurements AND Calculations MV E max tristan: 143.4 cm/sec Lat Peak E' Tristan: 13.3 cm/sec MV V2 max: 196.3 cm/sec MV A max tristan: 172.6 cm/sec E/E' lat: 10.8 MV max P.4 mmHg MV E/A: 0.83 MV V2 mean: 129.2 cm/sec MV mean P.7 mmHg MV V2 VTI: 32.1 cm Ao V2 max: 182.8 cm/sec LV V1 max: 130.4 cm/sec PA V2 max: 94.5 cm/sec Ao max P.4 mmHg LV V1 max P.8 mmHg Ao V2 mean: 127.8 cm/sec Ao mean P.2 mmHg Ao V2 VTI: 30.6 cm TR max tristan: 325.4 cm/sec TR max P.4 mmHg Interpretation Summary Normal LV size. Left ventricular systolic function is normal. The estimated ejection fraction is 60 %. Stage 1 diastolic dysfunction. Mild (1+) tricuspid valve insufficiency. Ordering Physician: Mike Rushing Referring Physician: Momo Carvajal Chi Performed By: Alexandra Olivraez RDCS, RVT 10/27/18 1614 Date Gamaliel Capellan MD CC: Mike Rushing MD; Neal Pop MD; Momo Carvajal MD Date Dictated: 10/27/188 Date Transcribed: 10/27/181613 Major Account Representative: Signed BASIC METABOLIC Collected: 10/27/2018 Status: F Source: CHRISTOPHER PROFILE (BMP) 5:15 AM [facility] REPOSITORY TYPE CODE TESTS RESULT OUT OF RANGE REFERENCE UNITS LAB L501.0100 74-106 mg/dL High GLU 152 Result Comment: Fasting Glucose result greater than or equal to 126 mg/dL suggests DIABETES MELLITUS per A.D.A. criteria. Please note revised GLUCOSE reference range effective 2017. LAB L501.1000 7-18 mg/dL High BUN 22 LAB L501.1100 0.55-1.02 mg/dL Low CREAT,SERUM 0.50 Result Comment: The validity of the calculated GFR AND GFRAA in patients over 70 years has not been determined. Clinical correlation is essential. LAB L501.1110 >60 mL/min Normal EST GFR 127 Result Comment: Non- GFR Calc LAB L501.1115 >60 mL/min Normal EST GFR - AA 154 Result Comment: GFR Calc LAB L501.1255 ml/min Normal Estimated CRCL 64.52 LAB L501.1300 10-20 RATIO High BUN/CRE 43.9 LAB L501.2200 8.5-10 mg/dL Low .1 CA 8.3 LAB L501.5300 136-14 mmol/L Low 5 NA 134 LAB L501.5600 3.5-5. mmol/L Normal 1 K 4.9 LAB L501.5900 98-107 mmol/L Normal CL 99 LAB L501.6100 21.0-3 mmol/L Normal 2.0 CO2 26.0 LAB L501.6200 5-15 Normal GAP 9 Performed By: #### L500.2500 #### [facility] [address] [place], [address] CBC W/DIFF, AUTOMATED Collected: 10/27/2018 Status: F Source: SIDNEY 5:15 AM [facility] REPOSITORY TYPE CODE TESTS RESULT OUT OF RANGE REFERENCE UNITS LAB L100.1000 4.4-11.0 K/mm3 Normal WBC 6.4 LAB L100.1200 4.2-5.4 M/mm3 Low RBC 3.80 LAB L100.1300 12.0-15.0 g/dl Low HGB 11.4 LAB L100.1400 37-47 % Low HCT 35.1 LAB L100.1500 81-99 fL Normal MCV 92.4 LAB L100.1600 27.0-32.0 pg Normal MCH 30.0 LAB L100.1700 32-36 g/gl Normal MCHC 32.5 LAB L100.1810 11.6-14.6 % Normal RDW CV 13.9 LAB L100.1820 35.1-43.9 fl High RDW SD 46.6 LAB L100.1900 150-450 K/mm3 Normal PLT 224 LAB L100.2000 6.2-12.0 fl Normal MPV 10.3 LAB L100.2100 47-70 % High NEUT% 89.4 LAB L100.2200 19-41 % Low LY% 7.6 LAB L100.2300 0-10 % Normal MONO% 2.5 LAB L100.2400 0-5 % Normal EO% 0.0 LAB L100.2500 0-1 % Normal BASO% 0.2 LAB L100.2550 0.0-0.9 % Normal IM GRAN % 0.300 Result Comment: IG% - Immature Granulocytes (promyelocytes, myelocytes and metamyelocytes) > 1% indicates that a LEFT SHIFT is Present. LAB L100.2620 2.0-7.7 X10 3/uL Normal Absolute Neut 5.8 LAB L100.2720 0.83-4.51 X10 3/ul Low Absolute Lymph 0.49 LAB L100.4500 Normal SMEAR COMMENT SCAN LAB L100.5500 ADEQ Normal PLT EST ADEQUATE LAB L100.5650 Normal PLT MORPH LARGE Performed By: #### L100.0100 #### [facility] [address] [facility] [facility] [address] [facility] [place], [place], [address] Observed: 10/26/2018 Status: F Source: SIDNEY INFLUENZA A+B (RAPID 1:30 PM [facility]) REPOSITORY FLU A/B Rapid Negative test results should be confirmed by culture. Order Rapid Viral Culture for Influenzae A+B ([id number]) if clinically indicated. Influenza Ag, Direct Presumptive NEGATIVE for Influenza A/B Antigen (See Note) Performed By: #### M101.0101, M100.638 #### [facility] [address]. [place], [place], [address] Observed: 10/26/2018 Status: F Source: SIDNEY RESPIRATORY PANEL 1:30 PM [facility] MOLECULAR REPOSITORY RP PANEL Normal Reference Range = Not Detected RESULTS CALLED TO NOVA/U 10/27/18 1106 Nelia Mendiola. Copy of report sent to Infection Control Printer MS#[id number] 10/27/18 1106 MAURO. ADENOVIRUS Not Detected HUMAN METAPHNEUMO Positive for HUMAN METAPHNEUMO VIRUS by NAAT technology INFLUENZA A Not Detected INFLUENZA A (SUBTYPE H1) Not Detected INFLUENZA A (SUBTYPE H3) Not Detected INFLUENZA B Positive for INFLUENZA B by NAAT technology PARAINFLUENZA 1 Not Detected PARAINFLUENZA 2 Not Detected PARAINFLUENZA 3 Not Detected PARAINFLUENZA 4 Not Detected RHINOVIRUS Not Detected RSV A Not Detected RSV B Not Detected NAAT METHOD Testing was performed using nucleic acid amplification ORGANISM 1: INFLUENZAE B ORGANISM 2: HUMAN META Performed By: #### M101.0101, M100.638 #### [facility] [address] [place], [address] TROPONIN-I Collected: 10/26/2018 Status: F Source: SIDNEY 10:46 AM [facility] REPOSITORY Order Comment: 'TROP' Serial specimen #1, #2 or #3: 3 TYPE CODE TESTS RESULT OUT OF RANGE REFERENCE UNITS LAB L501.4010 <0.045 ng/mL Normal < 0.015 TROPONIN-I Result Comment: TROPONIN-I EXPECTED VALUES <0.045 Negative 0.045 - 0.590 Consistent with Cardiac Damage > OR = 0.600 Critical Value Not every elevated troponin is indicative of VA. These values should be used with clinical judgement in examining the patient's clinical picture for diagnosis. To establish a diagnosis of VA versus myocardial injury, there must be a demonstrated rise and/or fall in the troponin values, in addition to ischemic symptoms, EKG changes, new regional wall motion abnormality, and/or angiographical evidence. PLEASE NOTE: REFERENCE RANGES EDITED 18 Performed By: #### L501.4010 #### [facility] [address] [place], [place], [address] TROPONIN-I Collected: 10/26/2018 Status: F Source: SIDNEY 7:30 AM [facility] REPOSITORY Order Comment: 'TROP' Serial specimen #1, #2 or #3: 2 TYPE CODE TESTS RESULT OUT OF RANGE REFERENCE UNITS LAB L501.4010 <0.045 ng/mL Normal < 0.015 TROPONIN-I Result Comment: TROPONIN-I EXPECTED VALUES <0.045 Negative 0.045 - 0.590 Consistent with Cardiac Damage > OR = 0.600 Critical Value Not every elevated troponin is indicative of VA. These values should be used with clinical judgement in examining the patient's clinical picture for diagnosis. To establish a diagnosis of VA versus myocardial injury, there must be a demonstrated rise and/or fall in the troponin values, in addition to ischemic symptoms, EKG changes, new regional wall motion abnormality, and/or angiographical evidence. PLEASE NOTE: REFERENCE RANGES EDITED 18 Performed By: #### L501.4010 #### [facility] [address] [place], [address] PROTHROMBIN TIME W/INR Collected: 10/26/2018 Status: F Source: SIDNEY 5:00 AM [facility] REPOSITORY TYPE CODE TESTS RESULT OUT OF RANGE REFERENCE UNITS LAB L300.4150 11.7-14.9 SECONDS Normal PROTIME 12.9 LAB L300.4200 Normal INR 1.0 Performed By: #### L300.3900 #### [facility] [address] [place], [address] CBC W/DIFF, AUTOMATED Collected: 10/26/2018 Status: F Source: SIDNEY 5:00 AM [facility] REPOSITORY TYPE CODE TESTS RESULT OUT OF RANGE REFERENCE UNITS LAB L100.1000 4.4-11.0 K/mm3 Normal WBC 6.5 LAB L100.1200 4.2-5.4 M/mm3 Low RBC 3.45 LAB L100.1300 12.0-15.0 g/dl Low HGB 10.3 LAB L100.1400 37-47 % Low HCT 33.0 LAB L100.1500 81-99 fL Normal MCV 95.7 LAB L100.1600 27.0-32.0 pg Normal MCH 29.9 LAB L100.1700 32-36 g/gl Low MCHC 31.2 LAB L100.1810 11.6-14.6 % Normal RDW CV 14.2 LAB L100.1820 35.1-43.9 fl High RDW SD 47.5 LAB L100.1900 150-450 K/mm3 Normal PLT 243 LAB L100.2000 6.2-12.0 fl Normal MPV 10.1 LAB L100.2100 47-70 % High NEUT% 83.9 LAB L100.2200 19-41 % Low LY% 9.3 LAB L100.2300 0-10 % Normal MONO% 6.2 LAB L100.2400 0-5 % Normal EO% 0.2 LAB L100.2500 0-1 % Normal BASO% 0.2 LAB L100.2550 0.0-0.9 % Normal IM GRAN % 0.200 Result Comment: IG% - Immature Granulocytes (promyelocytes, myelocytes and metamyelocytes) > 1% indicates that a LEFT SHIFT is Present. LAB L100.2620 2.0-7.7 X10 3/uL Normal Absolute Neut 5.5 LAB L100.2720 0.83-4.51 X10 3/ul Low Absolute Lymph 0.60 Performed By: #### L100.0100 #### [facility] [address] [place], [address] BASIC METABOLIC Collected: 10/26/2018 Status: F Source: CHRISTOPHER PROFILE (BMP) 5:00 AM [facility] REPOSITORY Order Comment: 'TROP' Serial specimen #1, #2 or #3: 1 TYPE CODE TESTS RESULT OUT OF RANGE REFERENCE UNITS LAB L501.0100 74-106 mg/dL High GLU 123 Result Comment: Fasting Glucose result from 100 to 125 mg/dL suggests IMPAIRED HOMEOSTASIS per A.D.A. criteria. Please note revised GLUCOSE reference range effective 2017. LAB L501.1000 7-18 mg/dL High BUN 25 LAB L501.1100 0.55-1.02 mg/dL Normal CREAT,SERUM 0.55 Result Comment: The validity of the calculated GFR AND GFRAA in patients over 70 years has not been determined. Clinical correlation is essential. LAB L501.1110 >60 mL/min Normal EST GFR 114 Result Comment: Non- GFR Calc LAB L501.1115 >60 mL/min Normal EST GFR - AA 138 Result Comment: GFR Calc LAB L501.1255 ml/min Normal Estimated CRCL 65.36 LAB L501.1300 10-20 RATIO High BUN/CRE 45.3 LAB L501.2200 8.5-10 mg/dL Low .1 CA 8.1 LAB L501.5300 136-14 mmol/L Normal 5 NA 136 LAB L501.5600 3.5-5. mmol/L Normal 1 K 4.3 LAB L501.5900 98-107 mmol/L Normal CL 101 LAB L501.6100 21.0-3 mmol/L Normal 2.0 CO2 27.0 LAB L501.6200 5-15 Normal GAP 8 Performed By: #### L500.2500, L500.4100, L501.4010, L501.5200, L501.9520, L503.6620 #### [facility] [address] [place], [address] LIPID PROFILE Collected: 10/26/2018 Status: F Source: SIDNEY 5:00 AM [facility] REPOSITORY Order Comment: 'TROP' Serial specimen #1, #2 or #3: 1 TYPE CODE TESTS RESULT OUT OF RANGE REFERENCE UNITS LAB L501.4900 200 mg/dL Normal CHOL 107 Result Comment: <200 mg/dL Desirable 200-240 mg/dL Borderline >240 mg/dL High Risk LAB L501.5000 mg/dL Normal TRIG 65 Result Comment: The drugs N-Acetylcysteine and Metamizole may falsely depress this assay. Serum Triglycerides Reference Interval Normal <150 mg/dL Borderline high 150 - 199 mg/dL High 200 - 499 mg/dL Very High > or = 500 mg/dL LAB L501.6400 mg/dL Normal HDL 50 Result Comment: The drugs N-Acetylcysteine and Metamizole may falsely depress this assay. Reference Range HDL <40 mg/dL Low HDL Cholesterol HDL >or= 60 mg/dL High HDL Cholesterol LAB L501.6500 0-130 mg/dL Normal LDL 44 LAB L501.6600 5-40 mg/dL Normal VLDL 13 Performed By: #### L500.2500, L500.4100, L501.4010, L501.5200, L501.9520, L503.6620 #### [facility] [address] [place], [address] TROPONIN-I Collected: 10/26/2018 Status: F Source: SIDNEY 5:00 AM [facility] REPOSITORY Order Comment: 'TROP' Serial specimen #1, #2 or #3: 1 TYPE CODE TESTS RESULT OUT OF RANGE REFERENCE UNITS LAB L501.4010 <0.045 ng/mL Normal < 0.015 TROPONIN-I Result Comment: TROPONIN-I EXPECTED VALUES <0.045 Negative 0.045 - 0.590 Consistent with Cardiac Damage > OR = 0.600 Critical Value Not every elevated troponin is indicative of VA. These values should be used with clinical judgement in examining the patient's clinical picture for diagnosis. To establish a diagnosis of VA versus myocardial injury, there must be a demonstrated rise and/or fall in the troponin values, in addition to ischemic symptoms, EKG changes, new regional wall motion abnormality, and/or angiographical evidence. PLEASE NOTE: REFERENCE RANGES EDITED 18 Performed By: #### L500.2500, L500.4100, L501.4010, L501.5200, L501.9520, L503.6620 #### [facility] [address] [place], [place], [address] MAGNESIUM Collected: 10/26/2018 Status: F Source: CHRISTOPHER 5:00 AM [facility] REPOSITORY Order Comment: 'TROP' Serial specimen #1, #2 or #3: 1 TYPE CODE TESTS RESULT OUT OF RANGE REFERENCE UNITS LAB L501.5200 1.6-2.6 mg/dL Normal MG 2.0 Performed By: #### L500.2500, L500.4100, L501.4010, L501.5200, L501.9520, L503.6620 #### [facility] [address] [place], [place], [id number] THYROID STIM HORMONE Collected: 10/26/2018 Status: F Source: CHRISTOPHER (TSH) 5:00 AM [facility] REPOSITORY Order Comment: 'TROP' Serial specimen #1, #2 or #3: 1 TYPE CODE TESTS RESULT OUT OF RANGE REFERENCE UNITS LAB L501.9520 0.358-3.74 uIU/mL Normal TSH 1.11 Performed By: #### L500.2500, L500.4100, L501.4010, L501.5200, L501.9520, L503.6620 #### [facility] [address] [place], [address] BNP,B-TYPE NATRIURETIC Collected: 10/26/2018 Status: F Source: CHRISTOPHER PEPTIDE 5:00 AM [facility] REPOSITORY TYPE CODE TESTS RESULT OUT OF RANGE REFERENCE UNITS LAB L503.6620 0-100 pg/mL Normal B-TYPE 98.3 THOMAS PEP Performed By: #### L500.2500, L500.4100, L501.4010, L501.5200, L501.9520, L503.6620 #### [facility] [address] [place], [address] HISTORY AND PHYSICAL Observed: 10/26/2018 Status: F Source: SIDNEY EXAM 4:22 AM [facility] REPOSITORY [facility] Medical Records Department [address] [place] [address] History and Physical 10/26/18 0405 MR#: [id number] Acct: [id number] Name: ABRAN SAENZ Rep #: [id number] : 1940 78 From: Mike Rushing MD PCP: Wei PRYOR,Momo Pfeiffer Status: ADM IN Y Location: [place] [address] Problem List (1) Acute congestive heart failure Status: Acute (2) Shortness of breath Status: Acute (3) Arthrogryposis Status: Chronic (4) HLD (hyperlipidemia) Status: Chronic Qualifiers: (5) HTN (hypertension) Status: Chronic Qualifiers: History of Present Illness Date of Admission: 10/26/18 Chief Complaint: SOB The patient is a 78 year old female w/ h/o chronic systolic heart failure, COPD, pulmonary HTN, and HTN is admitted for SOB. She has been feeling ill for the past few days. She thought she has a cold. Despite rest, she was getting more SOB. She also has been eating high sodium diet. Her SOB is associated with a productive cough. Nothing improved or worsened her cough. However, the intensity and frequency of her cough have increased. No fever or chill. Past Medical History Past Medical History (Chronic Problems): Chronic Problems HTN (hypertension) (Chronic) HLD (hyperlipidemia) (Chronic) Arthrogryposis (Chronic) Single kidney (Chronic) Morbid obesity with BMI of 40.0-44.9, adult (Chronic) Allergies No Known Allergies Allergy (Verified 01/26/18 19:43) Home Medications: Ambulatory Orders Medication Instructions Recorded Aspirin [Aspirin, Baby] 81 mg PO DAILY@0800 07/12/15 Surgical History: - - R Nephrectomy, Minor Surgey on the L Kidney, notable BL UE and LE corrective surgeries in her youth. Psychiatric History: No pertinent psych hx APPRISE COUNSELOR History: No pertinent APPRISE COUNSELOR history Lives: Spouse/ Significant Other Smoking Status: Never smoker - *Family History Maternal History Items: Heart Disease Paternal History Items: Heart Disease Review of Systems Constitutional: Denies: Chills, Fever, Weight Change HEENT: Denies: Head Aches, Sinus Congestion, Sinus Drainage Cardiovascular: Denies: Chest Pain, Palpitations Respiratory: Reports: Cough, Shortness of breath at rest, Sputum production, Wheezing Gastrointestinal: Denies: Abdominal Pain, Nausea, Vomiting Genitourinary: Denies: Dysuria Musculoskeletal: Denies: Joint Pain, Joint Tenderness Skin: Denies: Rash, Wounds Neurological: Denies: Numbness, Tingling, Focal weakness Psychiatric: Denies: Anxiety, Depression, Homicidal Ideations, Suicidal Ideations Hematologic/ Lymphatic: Denies: Easy Bruising, Easy Bleeding VTE Information - Inpt Only VTE Present on Admission: No VTE Mechan Device Prophylaxis: SCD's VTE Pharm Prophylaxis ordered?: Yes Patient Problems: Active and Suspected Problems Acute congestive heart failure (Acute) - Physical Exam General: Alert, Oriented x3, Cooperative HEENT: Atraumatic, PERRLA, EOMI, Normocephalic Neck: Supple, No JVD, Negative Carotid Bruits Lungs: Normal air movement, Short of Breath, Wheezes Cardiovascular: Regular rate, No murmurs Abdomen: Bowel Sounds Present, Soft, Non Tender Extremities: No edema, Capillary Refill Less than 3 Seconds Skin: No rashes, No breakdown Musculoskeletal: No Tenderness to Palpation of Joints or Extremities Neurological: Cranial nerves II-XII grossly intact Psych/Mental Status: Normal Affect, Appropriate Vital Signs Temp Pulse Resp BP Pulse Ox 98.2 F 87 18 106/67 98 10/26/18 02:46 10/26/18 02:46 10/26/18 02:46 10/26/18 02:46 10/26/18 02:46 Oxygen Flow Rate (L/min) 2 Oxygen Delivery Method Nasal Cannula Weight: 86.5 kg Body Mass Index (BMI) 39.8 Laboratory Tests Past 24 Hrs WBC 9.9 WBC RBC Hgb Hct MCV MCH MCHC RDW RDW Differential Plt Count MPV Immature Gran % (Auto) Neut % (Auto) Lymph % (Auto) Assessment/Plan All Active Problems Hypoxia (Acute) Pneumonia (Acute) Sepsis (Acute) Shortness of breath (Acute) Acute congestive heart failure (Acute) 78 year old female w/ h/o chronic systolic heart failure, COPD, pulmonary HTN, and HTN is admitted for SOB. 1) Acute on chronic systolic heart failure: Most likely secondary to dietary indiscretion. Will start lasix 40mg IV BID. Will get ECHO. Serial trops. Low salt diet. 2) Hypervolemia hyponatremia: Will diuresis. Will consider workup if no improvement. Serial labs. 3) Chronic issues: COPD, HTN and pulmonary hypertension: Resume home meds. 4) Prophylaxis: SCD / lovenox Code Visit Inpatient E AND M: [id number] Init Hosp L3 10/26/18 0422 <Electronically signed by Mike Rushing MD> Date Mike Rushing MD Cosigner Signature: Date (if applicable) CC: Mike Rushing MD; Momo Carvajal MD Signed EMERGENCY DEPARTMENT Observed: 10/26/2018 Status: F Source: SIDNEY SUMMARY 1:33 AM [facility] REPOSITORY [facility] Medical Records Department [address] [place] [address] Emergency Department Summary 10/26/18 0128 MR#: [id number] Acct: [id number] Name: ABRAN SAENZ Rep #: [id number] : 1940 78 From: Juan Khalil MD PCP: Momo Carvajal MD, Chi Status: REG ER - ER Visit Summary Date of Service: 10/26/18 Chief Complaint: Shortness of breath History of Present Illness: The patient is a 78 F who presents with shortness of breath. It began yesterday. She reports congestion rhinorrhea productive cough and nausea. She became increasingly short of breath particularly tonight. She complains of increased fatigue. Her oxygen saturation free mass was 85% on room air. She is not on home oxygen. She does have a history of CHF. Her records also note pulmonary hypertension. No known history of asthma or COPD. Physical Examination: Afebrile pulse ox 92% on 4 L Moist mucous membranes Heart regular rate and rhythm Patient has tachypnea with diffuse rhonchorous breath sounds and inspiratory and expiratory wheezing Abdomen soft nontender Alert Test Results: EKG shows sinus rhythm at a rate of 87. Labs notable for hemoglobin 11.7, BUN 26. Troponin negative. BNP is pending. Chest x-ray shows cardiomegaly and pulmonary edema and findings consistent with acute CHF. Emergency Department Course and Treatment: Given patient's initial presentation with infectious symptoms pneumonia as well as CHF were considered. Lab work as above and initially lactic acid and blood cultures were also ordered. Given patient's imaging findings and laboratory work so far I do not believe this is due to an infectious process but rather acute exacerbation of CHF. She was given IV Lasix. Patient to be admitted. Treatment Plan: [] Disposition: Admit Impression: CHF exacerbation This note was generated with EasySize dictation software. It may contain incorrect words, spelling, and punctuation that were not noted in review of the chart prior to signing ED Disposition - Plan for ED Patient: Chief Complaint: Shortness of Breath Referrals: Momo Carvajal Chi, MD [Primary Care Provider] - What to do if you have Problems For any increased pain, shortness of breath, bleeding, nausea or vomiting, chest pain, or any unexpected problems, contact your Primary Care Provider. Call [facility] ([phone]) or report to the closest Emergency Room. Call 911 if necessary. 10/26/18 0133 <Electronically signed by Juan Khalil MD> Date Juan Khalil MD Cosigner Signature (If Indicated): Date CC: Momo Carvajal MD LACTIC ACID Collected: 10/26/2018 Status: F Source: CHRISTOPHER 1:15 AM [facility] REPOSITORY Order Comment: Yes/No query for Sepsis Lactate Rule Y TYPE CODE TESTS RESULT OUT OF RANGE REFERENCE UNITS LAB L503.6005 0.4-2.0 mmol/L Normal LACTIC ACID 1.0 Performed By: #### L503.6005 #### [facility] [address] [place], [address] Observed: 10/26/2018 Status: F Source: CHRISTOPHER CULTURE, BLOOD (WB) 1:15 AM [facility] REPOSITORY BC No growth in 5 days. Performed By: #### M200.1000 #### [facility] [address] [place], [address] CBC W/DIFF, AUTOMATED Collected: 10/26/2018 Status: F Source: CHRISTOPHER 12:45 AM [facility] REPOSITORY TYPE CODE TESTS RESULT OUT OF RANGE REFERENCE UNITS LAB L100.1000 4.4-11.0 K/mm3 Normal WBC 9.9 LAB L100.1200 4.2-5.4 M/mm3 Low RBC 3.83 LAB L100.1300 12.0-15.0 g/dl Low HGB 11.7 LAB L100.1400 37-47 % Low HCT 36.3 LAB L100.1500 81-99 fL Normal MCV 94.8 LAB L100.1600 27.0-32.0 pg Normal MCH 30.5 LAB L100.1700 32-36 g/gl Normal MCHC 32.2 LAB L100.1810 11.6-14.6 % Normal RDW CV 14.1 LAB L100.1820 35.1-43.9 fl High RDW SD 47.0 LAB L100.1900 150-450 K/mm3 Normal PLT 245 LAB L100.2000 6.2-12.0 fl Normal MPV 9.9 LAB L100.2100 47-70 % High NEUT% 83.9 LAB L100.2200 19-41 % Low LY% 9.8 LAB L100.2300 0-10 % Normal MONO% 5.7 LAB L100.2400 0-5 % Normal EO% 0.3 LAB L100.2500 0-1 % Normal BASO% 0.2 LAB L100.2550 0.0-0.9 % Normal IM GRAN % 0.100 Result Comment: IG% - Immature Granulocytes (promyelocytes, myelocytes and metamyelocytes) > 1% indicates that a LEFT SHIFT is Present. LAB L100.2620 2.0-7.7 X10 3/uL High Absolute Neut 8.3 LAB L100.2720 0.83-4.51 X10 3/ul Normal Absolute Lymph 0.97 Performed By: #### L100.0100 #### [facility] [address] [facility] [address] [place], [place], [address] BASIC METABOLIC Collected: 10/26/2018 Status: F Source: SIDNEY PROFILE (BMP) 12:45 AM [facility] REPOSITORY TYPE CODE TESTS RESULT OUT OF RANGE REFERENCE UNITS LAB L501.0100 74-106 mg/dL High GLU 154 Result Comment: Fasting Glucose result greater than or equal to 126 mg/dL suggests DIABETES MELLITUS per A.D.A. criteria. Please note revised GLUCOSE reference range effective 2017. LAB L501.1000 7-18 mg/dL High BUN 26 LAB L501.1100 0.55-1.02 mg/dL Normal CREAT,SERUM 0.57 Result Comment: The validity of the calculated GFR AND GFRAA in patients over 70 years has not been determined. Clinical correlation is essential. LAB L501.1110 >60 mL/min Normal EST GFR 109 Result Comment: Non- GFR Calc LAB L501.1115 >60 mL/min Normal EST GFR - AA 132 Result Comment: GFR Calc LAB L501.1255 ml/min Normal Estimated CRCL 69.44 LAB L501.1300 10-20 RATIO High BUN/CRE 45.5 LAB L501.2200 8.5-10 mg/dL Low .1 CA 8.2 LAB L501.5300 136-14 mmol/L Low 5 NA 131 LAB L501.5600 3.5-5. mmol/L Normal 1 K 4.7 LAB L501.5900 98-107 mmol/L Normal CL 100 LAB L501.6100 21.0-3 mmol/L Normal 2.0 CO2 22.0 LAB L501.6200 5-15 Normal GAP 9 Performed By: #### L500.2500, L501.4010 #### [facility] [address] [place], [place], [address] TROPONIN-I Collected: 10/26/2018 Status: F Source: SIDNEY 12:45 AM [facility] REPOSIT[facility] TYPE CODE TESTS RESULT OUT OF RANGE REFERENCE UNITS LAB L501.4010 <0.045 ng/mL Normal < 0.015 TROPONIN-I Result Comment: TROPONIN-I EXPECTED VALUES <0.045 Negative 0.045 - 0.590 Consistent with Cardiac Damage > OR = 0.600 Critical Value Not every elevated troponin is indicative of VA. These values should be used with clinical judgement in examining the patient's clinical picture for diagnosis. To establish a diagnosis of VA versus myocardial injury, there must be a demonstrated rise and/or fall in the troponin values, in addition to ischemic symptoms, EKG changes, new regional wall motion abnormality, and/or angiographical evidence. PLEASE NOTE: REFERENCE RANGES EDITED 18 Performed By: #### L500.2500, L501.4010 #### [facility] [address] [facility] [place], [address] BNP,B-TYPE NATRIURETIC Collected: 10/26/2018 Status: F Source: SIDNEY PEPTIDE 12:45 AM [facility] REPOSITORY TYPE CODE TESTS RESULT OUT OF RANGE REFERENCE UNITS LAB L503.6620 0-100 pg/mL Normal B-TYPE 76.8 THOMAS PEP Performed By: #### L503.6620 #### [facility] [address] [place], [address] CHEST 1 VIEW Observed: 10/25/2018 Status: F Source: CHRISTOPHER (PORTABLE) 11:51 PM [facility] REPOSITORY [facility] Imaging Services [address] [place] [address] Chest 1 View (Portable) MR#: [id number] Acct: [id number] Name: ABRAN SAENZ Rep #: [id number] : 1940 F 78 From: Santino Mancuso MD PCP: Wei PRYOR,appAttach Status: REG ER Study: Chest 1 View (Portable) Date of Exam: 10/25/18 Exam# [id number] Ordering Dr: Juan Khalil MD STUDY: X-RAY CHEST REASON FOR EXAM: Female, 78 years old. Shortness of breath, cough, and congestion. TECHNIQUE: Single AP portable view of the chest. COMPARISON: 02/01/2018. 01/28/2018. FINDINGS: There is interstitial prominence in the lungs with denser infiltration in the perihilar regions of the mid and lower lung tran, suggesting CHF with pulmonary edema. Similar appearance was also present on the last previous study. The lungs are somewhat hyperexpanded which may represent COPD as well. There is no demonstrated pleural abnormality. The heart is enlarged. Normal mediastinum and fouzia. Normal visualized pulmonary arteries. Normal visualized aortic arch and descending thoracic aorta. There are no visualized acute osseous abnormalities. There is no demonstrated abnormality of the visualized soft tissue structures of the upper abdomen. RAD/Chest 1 View (Portable) IMPRESSION: Cardiomegaly with CHF and pulmonary edema. Suspect underlying COPD. Electronically Signed: Santino Mancuso MD at 1:16 EST , Service support , CC: Juan Khalil MD; Momo Carvajal MD Major Account Representative: Signed Observed: 10/25/2018 Status: F Source: CHRISTOPHER CULTURE, BLOOD (WB) 1:05 AM [facility] REPOSITORY BC No growth in 5 days. Performed By: #### M200.1000 #### [facility] [place], [address] CBC W/DIFF, AUTOMATED Collected: 10/22/2018 Status: F Source: CHRISTOPHER 2:38 PM [facility] REPOSITORY TYPE CODE TESTS RESULT OUT OF RANGE REFERENCE UNITS LAB L100.1000 4.4-11.0 K/mm3 Normal WBC 6.8 LAB L100.1200 4.2-5.4 M/mm3 Low RBC 4.06 LAB L100.1300 12.0-15.0 g/dl Normal HGB 12.0 LAB L100.1400 37-47 % Normal HCT 38.7 LAB L100.1500 81-99 fL Normal MCV 95.3 LAB L100.1600 27.0-32.0 pg Normal MCH 29.6 LAB L100.1700 32-36 g/gl Low MCHC 31.0 LAB L100.1810 11.6-14.6 % Normal RDW CV 13.9 LAB L100.1820 35.1-43.9 fl High RDW SD 48.4 LAB L100.1900 150-450 K/mm3 Normal PLT 321 LAB L100.2000 6.2-12.0 fl Normal MPV 10.4 LAB L100.2100 47-70 % Normal NEUT% 62.5 LAB L100.2200 19-41 % Normal LY% 21.6 LAB L100.2300 0-10 % Normal MONO% 9.0 LAB L100.2400 0-5 % High EO% 6.4 LAB L100.2500 0-1 % Normal BASO% 0.4 LAB L100.2550 0.0-0.9 % Normal IM GRAN % 0.100 Result Comment: IG% - Immature Granulocytes (promyelocytes, myelocytes and metamyelocytes) > 1% indicates that a LEFT SHIFT is Present. LAB L100.2620 2.0-7.7 X10 3/uL Normal Absolute Neut 4.2 LAB L100.2720 0.83-4.51 X10 3/ul Normal Absolute Lymph 1.46 Performed By: #### L100.0100 #### [facility] [address] [place], [address] COMPREHENSIVE METABOLIC Collected: 10/22/2018 Status: F Source: [facility] 2:38 PM [facility] REPOSITORY TYPE CODE TESTS RESULT OUT OF RANGE REFERENCE UNITS LAB L501.0100 74-106 mg/dL Normal GLU 85 Result Comment: Please note revised GLUCOSE reference range effective 2017. LAB L501.1000 7-18 mg/dL High BUN 29 LAB L501.1100 0.55-1.02 mg/dL Normal CREAT,SERUM 0.55 Result Comment: The validity of the calculated GFR AND GFRAA in patients over 70 years has not been determined. Clinical correlation is essential. LAB L501.1110 >60 mL/min Normal EST GFR 115 Result Comment: Non- GFR Calc LAB L501.1115 >60 mL/min Normal EST GFR - AA 139 Result Comment: GFR Calc LAB L501.1300 10-20 RATIO High BUN/CRE 52.9 LAB L501.1500 6.4-8.2 g/dL T Normal PROT 6.5 LAB L501.1800 3.2-5.0 g/dL Normal ALB 3.5 LAB L501.1950 2.2-4.2 g/dL Normal GLOB 3.0 LAB L501.2000 0.9-2.4 RATIO Normal A/G 1.2 LAB L501.2200 8.5-10.1 mg/dL CA Normal 9.0 LAB L501.4100 15-37 U/L Normal AST 23 LAB L501.4305 45-117 U/L High ALK P 135 LAB L501.4405 13-56 U/L Normal ALT 23 LAB L501.4600 0.20-1.00 mg/dL T Normal BILI 0.60 LAB L501.5300 136-145 mmol/L NA Normal 140 LAB L501.5600 3.5-5.1 mmol/L K Normal 4.7 LAB L501.5900 98-107 mmol/L CL Normal 101 LAB L501.6100 21.0-32.0 mmol/L Normal CO2 31.0 LAB L501.6200 5-15 Normal GAP 8 Performed By: #### L500.4050, L501.9520 #### [facility] [address] [facility] [place], [place], [id number] THYROID STIM HORMONE Collected: 10/22/2018 Status: F Source: [facility] ([facility]) 2:38 PM [facility] REPOSITORY TYPE CODE TESTS RESULT OUT OF RANGE REFERENCE UNITS LAB L501.9520 0.358-3.74 uIU/mL Normal TSH 1.74 Performed By: #### L500.4050, L501.9520 #### [facility] [address] [place], [address] VITAMIN D,25 HYDROXY Collected: 10/22/2018 Status: F Source: [facility] 2:38 PM [facility] REPOSITORY TYPE CODE TESTS RESULT OUT OF RANGE REFERENCE UNITS LAB L506.1000 29.95-100.01 ng/mL Normal Vitamin D 33.6 25-OH Result Comment: Vitamin D 25(OH) Status Range Deficiency <20 ng/mL (50nmol/L) Insuffciency 20 - 30 ng/mL (50 - 75 nmol/L) Sufficiency 30 - 100 ng/mL (75 - 250 nmol/L) Toxicity >100 ng/mL (>250 nmol/L) Performed By: #### L506.1000 #### [facility] [address] [place], [address] COMPREHENSIVE METABOLIC Collected: 04/22/2018 Status: F Source: [facility] 3:18 PM [facility] REPOSITORY TYPE CODE TESTS RESULT OUT OF RANGE REFERENCE UNITS LAB L501.0100 74-106 mg/dL Normal GLU 98 Result Comment: Please note revised GLUCOSE reference range effective 2017. LAB L501.1000 7-18 mg/dL High BUN 21 LAB L501.1100 0.55-1.02 mg/dL Normal CREAT,SERUM 0.60 Result Comment: The validity of the calculated GFR AND GFRAA in patients over 70 years has not been determined. Clinical correlation is essential. LAB L501.1110 >60 mL/min Normal EST GFR 104 Result Comment: Non- GFR Calc LAB L501.1115 >60 mL/min Normal EST GFR - AA 126 Result Comment: GFR Calc LAB L501.1300 10-20 RATIO High BUN/CRE 35.3 LAB L501.1500 6.4-8.2 g/dL Low T PROT 6.3 LAB L501.1800 3.2-5.0 g/dL Normal ALB 3.5 LAB L501.1950 2.2-4.2 g/dL Normal GLOB 2.8 LAB L501.2000 0.9-2.4 RATIO Normal A/G 1.2 LAB L501.2200 8.5-10.1 mg/dL CA Normal 9.2 LAB L501.4100 15-37 U/L Normal AST 22 LAB L501.4305 45-117 U/L High ALK P 119 LAB L501.4405 13-56 U/L Normal ALT 22 LAB L501.4600 0.20-1.00 mg/dL T Normal BILI 0.50 LAB L501.5300 136-145 mmol/L NA Normal 143 LAB L501.5600 3.5-5.1 mmol/L K Normal 4.9 LAB L501.5900 98-107 mmol/L CL Normal 102 LAB L501.6100 21.0-32.0 mmol/L Normal CO2 31.0 LAB L501.6200 5-15 Normal GAP 10 Performed By: #### L500.4050, L501.9520 #### [facility] [address] [place], [place], [address] THYROID STIM HORMONE Collected: 04/22/2018 Status: F Source: [facility] ([facility]) 3:18 PM [facility] REPOSITORY TYPE CODE TESTS RESULT OUT OF RANGE REFERENCE UNITS LAB L501.9520 0.358-3.74 uIU/mL Normal TSH 1.38 Performed By: #### L500.4050, L501.9520 #### [facility] [address] [place], [address] CBC W/DIFF, AUTOMATED Collected: 04/22/2018 Status: F Source: [facility] 3:18 PM [facility] REPOSITORY TYPE CODE TESTS RESULT OUT OF RANGE REFERENCE UNITS LAB L100.1000 4.4-11.0 K/mm3 Normal WBC 6.7 LAB L100.1200 4.2-5.4 M/mm3 Low RBC 3.96 LAB L100.1300 12.0-15.0 g/dl Low HGB 11.8 LAB L100.1400 37-47 % Normal HCT 37.7 LAB L100.1500 81-99 fL Normal MCV 95.2 LAB L100.1600 27.0-32.0 pg Normal MCH 29.8 LAB L100.1700 32-36 g/gl Low MCHC 31.3 LAB L100.1810 11.6-14.6 % Normal RDW CV 13.9 LAB L100.1820 35.1-43.9 fl High RDW SD 47.2 LAB L100.1900 150-450 K/mm3 Normal PLT 299 LAB L100.2000 6.2-12.0 fl Normal MPV 11.3 LAB L100.2100 47-70 % Normal NEUT% 58.2 LAB L100.2200 19-41 % Normal LY% 26.4 LAB L100.2300 0-10 % Normal MONO% 9.9 LAB L100.2400 0-5 % Normal EO% 4.8 LAB L100.2500 0-1 % Normal BASO% 0.6 LAB L100.2550 0.0-0.9 % Normal IM GRAN % 0.100 Result Comment: IG% - Immature Granulocytes (promyelocytes, myelocytes and metamyelocytes) > 1% indicates that a LEFT SHIFT is Present. LAB L100.2620 2.0-7.7 X10 3/uL Normal Absolute Neut 3.9 LAB L100.2720 0.83-4.51 X10 3/ul Normal Absolute Lymph 1.77 Performed By: #### L100.0100 #### [facility] [address] [facility] [place], [address] VITAMIN D,25 HYDROXY Collected: 04/22/2018 Status: F Source: [facility] 3:18 PM [facility] REPOSITORY TYPE CODE TESTS RESULT OUT OF RANGE REFERENCE UNITS LAB L506.1000 29.95-100.01 ng/mL Normal Vitamin D 36.4 25-OH Result Comment: Vitamin D 25(OH) Status Range Deficiency <20 ng/mL (50nmol/L) Insuffciency 20 - 30 ng/mL (50 - 75 nmol/L) Sufficiency 30 - 100 ng/mL (75 - 250 nmol/L) Toxicity >100 ng/mL (>250 nmol/L) Performed By: #### L506.1000 #### [facility] [address] [facility] [place], [address] DISCHARGE SUMMARY Observed: 02/02/2018 Status: F Source: [facility] 12:03 PM [facility] REPOSITORY [facility] Medical Records Department [address] [place], [place] [address] [address] Discharge Summary 02/02/18 1155 MR#: [id number] Acct: [id number] Name: ABRAN SAENZ Rep #: [id number] : 1940 77 From: Han Quan MD PCP: Wei PRYOR,Momo Pfeiffer Status: ADM IN Location: [place] [address] Discharge Date and Diagnosis - Problem List Patient Problems: Active and Suspected Problems Shortness of breath (Acute) Date of Admission: 01/29/18 Date of Discharge: 02/02/18 - Primary Discharge Diagnosis Active and Suspected Problems Shortness of breath (Acute) - Secondary Discharge Diagnosis Chronic Problems HTN (hypertension) (Chronic) HLD (hyperlipidemia) (Chronic) Arthrogryposis (Chronic) Single kidney (Chronic) Morbid obesity with BMI of 40.0-44.9, adult (Chronic) Hospital Course and Treatment Imaging Results: 02/03/18 08:00 CTA Chest W/WO Contrast [CT] Urgent Summary of Care Provided: This is a 77 year old F seen in the emergency room at [facility] with a chief complaint of increased shortness of breath her release from the hospital . She was initially hospitalized from [facility] 01/28/2018 and treated for pneumonia with IV antibiotics. She went home she became significantly dyspneic and return to the emergency room chest x-ray showed congestive heart failure and she was readmitted to the hospital and placed on IV Lasix. It has had good diuresis, initially she required supplemental oxygen but has been able to wean off. She is now stable for discharge and we have increased her Lasix from 40 mg daily to 40 mg twice daily. She was discharged home in a stable condition. Physical exam at the time of discharge; 10 4/98, 92, 16, 98% on room air, afebrile she was alert and oriented to time place and person. she did not appear to be any form of distress. S1 and S2 heard no murmur or gallop Lung exam was clear to auscultation with no adventitious sounds. Abdomen was soft nontender with normal bowel sounds. extremity exam did not reveal any edema, palpable pulses bilaterally. Neurologic exam was grossly intact. 1. Congestive heart failure with preserved left ventricular function; improved with IV Lasix , she is now clinically compensated, we are now discharging her home Lasix 40 mg p.o. twice daily. 2. Acute respiratory failure with hypoxia requiring supplemental oxygen, patient has been weaned off supplemental oxygen. 3. Pulmonary hypertension; continue Lasix. 5 elevated troponin; felt to be due to NSTEMI type II, echocardiogram revealed normal ejection fraction with no regional wall motion abnormalities. 6. Ambulatory dysfunction due to Arthrogryposis, supportive care. 7 Hypertension; she is on lisinopril. Discharge Diet: 6 Cup Fluid Restriction Discharge Activity: Return to Normal Activity Home Medications: Medications to take at Discharge Aspirin [Aspirin, Baby] 81 mg PO DAILY@0800 07/12/15 Atorvastatin Calcium [Lipitor] 80 mg PO QHS 07/12/15 Calcium Carb/Vitamin D [Caltrate-600 With Vit D Tab] 2 tab PO DAILY 07/12/15 Lisinopril [Zestril] 5 mg PO DAILY 07/12/15 Potassium Chloride [K-Dur] 10 meq PO 4X/DAY 07/12/15 Dibucaine [Nupercainal] 56.7 gm RC 4X/DAY PRN PRN #1 oint...g. 09/28/15 Benzonatate [Tessalon Perle] 100 mg PO TID PRN 01/26/18 Furosemide 40 mg PO BID #60 tab 02/02/18 Following Prescrptions Were Given to Patient: Furosemide 40 mg PO BID #60 tab Primary Care Physician: Momo Carvajal Chi, MD [Primary Care Provider] - In 1 Week Medical Necessity - Tobacco Use Smoking Status: Never smoker Tobacco Use: Non-smoker Meaningful Use Info Meaningful Use Diagnoses (Choose all that apply): None applicable Code Visit Inpatient E AND M: 53156 Disch Hosp 02/02/18 1203 <Electronically signed by Han Quan MD> Date Han Quan MD Cosigner Signature (if applicable): Date CC: Han Quan MD; Momo Carvajal MD Signed DISCHARGE INSTRUCTION Observed: 02/02/2018 Status: F Source: [facility] 11:55 AM [facility] REPOSITORY [facility] Medical Records Department [address] [place] [address] Instructions for Home/Discharge Instructions 02/02/18 1154 MR#: [id number] Acct: [id number] Name: ABRAN SAENZ Rep #: [id number] : 1940 77 From: Han Quan MD PCP: Momo Carvajal MD, Chi Status: ADM IN - Discharge Diagnoses Current Active Problems: Current Active and Chronic Problems Shortness of breath (Acute) You will use the following diet at home:: Cardiac Discharge Activity: Return to Normal Activity Allergies/Adverse Reactions: Allergies No Known Allergies Allergy (Verified 01/26/18 19:43) Medications to take at Discharge Aspirin [Aspirin, Baby] 81 mg PO DAILY@0800 07/12/15 Atorvastatin Calcium [Lipitor] 80 mg PO QHS 07/12/15 Calcium Carb/Vitamin D [Caltrate-600 With Vit D Tab] 2 tab PO DAILY 07/12/15 Lisinopril [Zestril] 5 mg PO DAILY 07/12/15 Potassium Chloride [K-Dur] 10 meq PO 4X/DAY 07/12/15 Dibucaine [Nupercainal] 56.7 gm RC 4X/DAY PRN PRN #1 oint...g. 09/28/15 Benzonatate [Tessalon Perle] 100 mg PO TID PRN 01/26/18 Furosemide 40 mg PO BID #60 tab 02/02/18 The following prescriptions were given: Furosemide 40 mg PO BID #60 tab Primary Care Physician: Momo Carvajal Chi, MD [Primary Care Provider] - In 1 Week Proposed Discharge Date: 02/02/18 02/02/18 1155 <Electronically signed by Han Quan MD> Date Han Quan MD CC: Momo Carvajal MD BASIC METABOLIC Collected: 02/01/2018 Status: F Source: [facility] PROFILE (BMP) 5:50 AM [facility] REPOSITORY TYPE CODE TESTS RESULT OUT OF RANGE REFERENCE UNITS LAB L501.0100 74-106 mg/dL High GLU 158 Result Comment: Fasting Glucose result greater than or equal to 126 mg/dL suggests DIABETES MELLITUS per A.D.A. criteria. Please note revised GLUCOSE reference range effective 2017. LAB L501.1000 7-18 mg/dL High BUN 41 LAB L501.1100 0.55-1.02 mg/dL Normal CREAT,SERUM 0.64 Result Comment: The validity of the calculated GFR AND GFRAA in patients over 70 years has not been determined. Clinical correlation is essential. LAB L501.1110 >60 mL/min Normal EST GFR 95 Result Comment: Non- GFR Calc LAB L501.1115 >60 mL/min Normal EST GFR - AA 115 Result Comment: GFR Calc LAB L501.1255 ml/min Normal Estimated CRCL 69.06 LAB L501.1300 10-20 RATIO High BUN/CRE 63.7 LAB L501.2200 8.5-10 mg/dL Normal .1 CA 8.6 LAB L501.5300 136-14 mmol/L Low 5 NA 134 LAB L501.5600 3.5-5. mmol/L Normal 1 K 4.7 LAB L501.5900 98-107 mmol/L Low CL 97 LAB L501.6100 21.0-3 mmol/L Normal 2.0 CO2 31.0 LAB L501.6200 5-15 Normal GAP 6 Performed By: #### L500.2500 #### [facility] Laboratory [address] [facility] [place], [address] CHEST 1 VIEW Observed: 02/01/2018 Status: F Source: [facility] (PORTABLE) 12:00 AM [facility] REPOSITORY [facility] Imaging Services [address] [place] [address] Chest 1 View (Portable) MR#: [id number] Acct: [id number] Name: ABRAN SAENZ Rep #: [id number] : 1940 F 77 From: Vincent Hidalgo PCP: Wei PRYOR,appAttach Status: ADM IN Study: Chest 1 View (Portable) Date of Exam: 02/01/18 Exam# [id number] Ordering Dr: Catrachito Holley DO STUDY: X-RAY CHEST REASON FOR EXAM: Female, 77 years old. Shortness of breath, CHF TECHNIQUE: Single AP portable view of the chest. COMPARISON: 01/31/2018. FINDINGS: EKG lines overlying the chest. The lungs are hyper expanded. Worsening pulmonary vascular congestion. Lower lung airspace disease. There is no demonstrated pleural abnormality. There is moderate cardiac enlargement. Normal mediastinum and fouzia. Normal visualized pulmonary arteries. Normal visualized aortic arch and descending thoracic aorta. Normal visualized thoracic spine. Normal visualized ribs, clavicles, and shoulders. There is no demonstrated abnormality of the visualized soft tissue structures of the upper abdomen. RAD/Chest 1 View (Portable) IMPRESSION: Worsening CHF. Cardiomegaly. Basilar airspace disease. Electronically Signed: Vincent Hidalgo DO at 9:33 EDT , Service support , CC: Catrachito Holley DO; Momo Carvajal MD Major Account Representative: Signed 12 LEAD ELECTROCARDIOGRAM Observed: 01/31/2018 Status: F Source: [facility] 1:45 PM [facility] REPOSITORY [facility] Cardiovascular Services [address] [place] [address] 12 Lead EKG 01/29/18 0740 MR#: [id number] Acct: [id number] Name: ABRAN SAENZ Rep #: [id number] : 1940 77 From: Gamaliel Capellan MD Attending Dr: Catrachito Holley DO Status: ADM IN Ordering Dr: Santino Quinones MD Date: 01/29/18 Location: [facility] Sex: F C Admitted: 01/29/18 Test Reason : SOB Blood Pressure : / mmHG Vent. Rate : 098 BPM Atrial Rate : 098 BPM P-R Int : 164 ms QRS Dur : 100 ms QT Int : 338 ms P-R-T Axes : 070 090 050 degrees QTc Int : 431 ms Normal sinus rhythm Low voltage QRS Borderline ECG Confirmed by GAMALIEL CAPELLAN MD ([id number]), newspaper managing editor LEON DURAN ([id number]) on 01/31/2018 1:45:19 PM Referred By: SL Confirmed By:GAMALIEL CAPELLAN MD 01/31/18 1345 Date Gamaliel Capellan MD CC: Santino Quinones MD; Momo Carvajal MD Signed BASIC METABOLIC Collected: 01/31/2018 Status: F Source: [facility] PROFILE (BMP) 5:25 AM [facility] REPOSITORY TYPE CODE TESTS RESULT OUT OF RANGE REFERENCE UNITS LAB L501.0100 74-106 mg/dL High GLU 182 Result Comment: Fasting Glucose result greater than or equal to 126 mg/dL suggests DIABETES MELLITUS per A.D.A. criteria. Please note revised GLUCOSE reference range effective 2017. LAB L501.1000 7-18 mg/dL High BUN 28 LAB L501.1100 0.55-1.02 mg/dL Normal CREAT,SERUM 0.65 Result Comment: The validity of the calculated GFR AND GFRAA in patients over 70 years has not been determined. Clinical correlation is essential. LAB L501.1110 >60 mL/min Normal EST GFR 95 Result Comment: Non- GFR Calc LAB L501.1115 >60 mL/min Normal EST GFR - AA 115 Result Comment: GFR Calc LAB L501.1255 ml/min Normal Estimated CRCL 70.21 LAB L501.1300 10-20 RATIO High BUN/CRE 43.3 LAB L501.2200 8.5-10 mg/dL Normal .1 CA 8.6 LAB L501.5300 136-14 mmol/L Low 5 NA 134 LAB L501.5600 3.5-5. mmol/L High 1 K 5.3 LAB L501.5900 98-107 mmol/L Normal CL 99 LAB L501.6100 21.0-3 mmol/L Normal 2.0 CO2 30.0 LAB L501.6200 5-15 Normal GAP 5 Performed By: #### L500.2500 #### [facility] Laboratory [address] [place], [address] CHEST 1 VIEW Observed: 01/31/2018 Status: F Source: [facility] (PORTABLE) 12:01 AM [facility] REPOSITORY [facility] Imaging Services [address] [place] [address] Chest 1 View (Portable) MR#: [id number] Acct: [id number] Name: ABRAN SAENZ Rep #: [id number] : 1940 F 77 From: Bonnie Torres MD PCP: Wei PRYOR,Momo Pfeiffer Status: ADM IN Study: Chest 1 View (Portable) Date of Exam: 01/31/18 Exam# [id number] Ordering Dr: Catrachito Holley DO STUDY: X-RAY CHEST REASON FOR EXAM: Female, 77 years old. Dyspnea TECHNIQUE: Single AP portable view of the chest. COMPARISON: January 30, 2018 FINDINGS: Stable central vascular congestion and bilateral alveolar disease. There is small left pleural effusion. Stable large cardiac silhouette. Normal mediastinum and fouzia. Normal visualized pulmonary arteries. Normal visualized aortic arch and descending thoracic aorta. Normal visualized thoracic spine. There is degenerative osteoarthritis of the bilateral shoulders. There is no demonstrated abnormality of the visualized soft tissue structures of the upper abdomen. RAD/Chest 1 View (Portable) IMPRESSION: Stable central vascular congestion and bilateral alveolar disease. Electronically Signed: Bonnie Torres MD at 9:19 EDT Tel , Service support , CC: Catrachito Holley DO; Momo Carvajal MD Major Account Representative: Signed DISCHARGE SUMMARY Observed: 01/30/2018 Status: F Source: [facility] 6:55 PM [facility] REPOSITORY [facility] Medical Records Department [address] [place] [address] Discharge Summary 01/30/18 1848 MR#: [id number] Acct: [id number] Name: ABRAN SAENZ Rep #: [id number] : 1940 77 From: Catrachito Holley DO PCP: Wei PRYOR,Momo Pfeiffer Status: DIS IN Y Location: ICU [id number] Discharge Date and Diagnosis - Problem List Patient Problems: Active and Suspected Problems Shortness of breath (Acute) Date of Admission: 01/27/18 Date of Discharge: 01/28/18 - Primary Discharge Diagnosis Active and Suspected Problems #1 acute sepsis secondary to left lower lobe community-acquired ryodtcbtx-lgja-hukjqzqv bacterial #2 left lower lobe community-acquired wwzfremui-ezfd-nundwwvl bacterial #3 hypoxia secondary to atelectasis and left lower lobe community- acquired pneumonia #4 widespread atelectasis of the lungs #5 hypertension - Secondary Discharge Diagnosis Chronic Problems HTN (hypertension) (Chronic) HLD (hyperlipidemia) (Chronic) Arthrogryposis (Chronic) Single kidney (Chronic) Morbid obesity with BMI of 40.0-44.9, adult (Chronic) Hospital Course and Treatment Operations: None Procedures: None Summary of Care Provided: The patient is a 77 year old F who was seen in the emergency room at [facility] with chief complaint of fever, shortness of breath, and cough over the past several days. Patient states she was coughing up yellow sputum. Evaluation in the emergency room included labs which showed an elevated white count of 13.4, troponin was unremarkable, beta natruretic peptide was 118, lactic acid was normal. Patient has a chest x-ray performed which showed mild congestion and cardiomegaly, CT of the chest did not show a PE but however did show a pneumonia in the left lower lobe. Patient was admitted to the general medical floor for acute sepsis secondary to community-acquired pneumonia suspect suspected to be secondary to gram positive bacteria, she was treated with IV Rocephin and Zithromax. Patient's chest x-ray the following day appeared worse, pulmonary medicine was consulted and felt the patient had an element of atelectasis. Repeat beta natruretic peptide was unremarkable. Patient's pulse ox was noted to be above 90% on room air. On 01/28/18, patient was seen and examined felt in stable condition for discharge home Discharge Activity: Return to Normal Activity Weight Bearing Status: - - resume normal activity level Home Medications: Medications to take at Discharge Aspirin [Aspirin, Baby] 81 mg PO DAILY@0800 07/12/15 Atorvastatin Calcium [Lipitor] 80 mg PO QHS 07/12/15 Calcium Carb/Vitamin D [Caltrate-600 With Vit D Tab] 2 tab PO DAILY 07/12/15 Furosemide 40 mg PO DAILY 07/12/15 Lisinopril [Zestril] 5 mg PO DAILY 07/12/15 Potassium Chloride [K-Dur] 10 meq PO 4X/DAY 07/12/15 Dibucaine [Nupercainal] 56.7 gm RC 4X/DAY PRN PRN #1 oint...g. 09/28/15 Benzonatate [Tessalon Perle] 100 mg PO TID PRN 01/26/18 Amoxicillin/Potassium Clav [Augmentin 875-125 Tablet] 1 ea PO BIDCM #10 tab 01/28/18 Following Prescrptions Were Given to Patient: Amoxicillin/Potassium Clav [Augmentin 875-125 Tablet] 1 ea PO BIDCM #10 tab Primary Care Physician: Momo Carvajal Chi, MD [Primary Care Provider] - Please follow up with your Primary Care Physician in: in 1- 2 weeks Please Follow Up With: Jerry Walton MD When: in 2 weeks-call for appointment Disposition: Home Minutes spent on discharge:: 32 Patient Condition:: Stable Medical Necessity - Tobacco Use Smoking Status: Never smoker Tobacco Use: Non-smoker Meaningful Use Info Meaningful Use Diagnoses (Choose all that apply): None applicable Code Visit Inpatient E AND M: 88468 Disch Hosp 01/30/18 8877 <Electronically signed by Catrachito Holley DO> Date Catrachito Holley DO Cosigner Signature (if applicable): Date CC: Catrachito Holley DO; Momo Carvajal MD Signed BASIC METABOLIC Collected: 01/30/2018 Status: F Source: [facility] PROFILE ([facility]) 6:35 AM [facility] REPOSITORY TYPE CODE TESTS RESULT OUT OF RANGE REFERENCE UNITS LAB L501.0100 74-106 mg/dL High GLU 144 Result Comment: Fasting Glucose result greater than or equal to 126 mg/dL suggests DIABETES MELLITUS per A.D.A. criteria. Please note revised GLUCOSE reference range effective 2017. LAB L501.1000 7-18 mg/dL High BUN 22 LAB L501.1100 0.55-1.02 mg/dL Low CREAT,SERUM 0.53 Result Comment: The validity of the calculated GFR AND GFRAA in patients over 70 years has not been determined. Clinical correlation is essential. LAB L501.1110 >60 mL/min Normal EST GFR 119 Result Comment: Non- GFR Calc LAB L501.1115 >60 mL/min Normal EST GFR - AA 144 Result Comment: GFR Calc LAB L501.1255 ml/min Normal Estimated CRCL 70.37 LAB L501.1300 10-20 RATIO High BUN/CRE 41.3 LAB L501.2200 8.5-10 mg/dL Normal .1 CA 8.6 LAB L501.5300 136-14 mmol/L Low 5 NA 132 LAB L501.5600 3.5-5. mmol/L Normal 1 K 5.1 Result Comment: Slight Hemolysis, Result may be falsely increased. LAB L501.5900 98-107 mmol/L Normal CL 99 LAB L501.6100 21.0-32.0 mmol/L Normal CO2 25.0 LAB L501.6200 5-15 Normal GAP 8 Performed By: #### L500.2500 #### [facility] Laboratory [address] [facility] [place], [address] CHEST 1 VIEW Observed: 01/30/2018 Status: F Source: [facility] (PORTABLE) 12:00 AM [facility] REPOSITORY [facility] Imaging Services [address] [place] [address] Chest 1 View (Portable) MR#: [id number] Acct: [id number] Name: ABRAN SAENZ Rep #: [id number] : 1940 F 77 From: Gianni White MD PCP: Wei PRYOR,Momo [facility] Hospital Status: ADM IN Study: Chest 1 View (Portable) Date of Exam: 01/30/18 Exam# [id number] Ordering Dr: Catrachito Holley DO STUDY: X-RAY CHEST REASON FOR EXAM: Female, 77 years old. SOB TECHNIQUE: Single frontal view of the chest. COMPARISON: 01/29/2018 FINDINGS: Stable central vascular congestion and bilateral alveolar disease. Costophrenic angles are obscured. Stable large cardiac silhouette. Normal mediastinum and fuozia. Normal visualized pulmonary arteries. Normal visualized aortic arch and descending thoracic aorta. Normal visualized thoracic spine. There is degenerative osteoarthritis of the bilateral shoulders. There is no demonstrated abnormality of the visualized soft tissue structures of the upper abdomen. RAD/Chest 1 View (Portable) IMPRESSION: Stable central vascular congestion and bilateral alveolar disease. Electronically Signed: Gianni White MD at 5:19 EDT Tel , Service support , CC: Catrachito Holley DO; Momo Carvajal MD Major Account Representative: Signed TROPONIN-I Collected: 01/29/2018 Status: F Source: SIDNEY 10:37 PM [facility] REPOSITORY Order Comment: 'TROP' Serial specimen #1, #2, #3, or #4: 4 TYPE CODE TESTS RESULT OUT OF RANGE REFERENCE UNITS LAB L501.4010 <0.06 ng/mL High 0.17 TROPONIN-I Result Comment: TROPONIN-I EXPECTED VALUES <0.05 NEGATIVE 0.06 - 0.59 AT RISK OF [facility] > OR = 0.60 SUGGEST VA Performed By: #### L501.4010 #### [facility] Laboratory [address]. [place], [place], [address] TROPONIN-I Collected: 01/29/2018 Status: F Source: SIDNEY 4:49 PM [facility] REPOSITORY Order Comment: 'TROP' Serial specimen #1, #2, #3, or #4: 3 TYPE CODE TESTS RESULT OUT OF RANGE REFERENCE UNITS LAB L501.4010 <0.06 ng/mL High 0.22 TROPONIN-I Result Comment: TROPONIN-I EXPECTED VALUES <0.05 NEGATIVE 0.06 - 0.59 AT RISK OF [facility] > OR = 0.60 SUGGEST VA Performed By: #### L501.4010 #### [facility] Laboratory [address] [facility]. [place], [place], [address] ECHOCARDIOGRAM COMPLETE Observed: 01/29/2018 Status: F Source: SIDNEY 4:36 PM [facility] REPOSITORY [facility] Cardiovascular Services [address] [place] [address] Echo Complete 01/29/18 1418 MR#: [id number] Acct: [id number] Name: ABRAN SAENZ Rep #: [id number] : 1940 77 From: Orlando Baer MD Attending Dr: Catrachito Holley DO Status: ADM IN Ordering Dr: Catrachito Holley DO Date: 01/29/18 Location: [facility] Sex: F C Admitted: 01/29/18 Reason For Study: CHF Procedure This was a 2D Doppler, Color Flow transthoracic echocardiogram. Exam performed portable in patient room. Left Ventricle Normal size and thickness. The estimated ejection fraction is 75 %. Stage 1 diastolic dysfunction. Right Ventricle Normal size and thickness. A moderator band is seen in the right ventricle. Normal systolic function. Atria Normal left atrium. The right atrium is mildly enlarged. Normal atrial septum. Mitral Valve The mitral valve is structurally normal. No prolapse or stenosis seen. Tricuspid Valve Normal tricuspid valve. Trivial tricuspid valve insufficiency. Right ventricular systolic pressure estimated to be 54 mmHg. Moderate pulmonary hypertension. Aortic Valve Normal aortic valve. Trisinus/trileaflet aortic valve. Pulmonic Valve The pulmonic valve is not well visualized. Great Vessels Normal aortic root. Normal arch. The inferior vena cava is dilated. No collapse of the inferior vena cava. Pericardium/Pleural Epicardial fat. Moderate size left pleural effusion. MMode/2D Measurements AND Calculations LVIDd: 3.6 cm IVSd: 0.82 cm Ao root diam: 2.6 cm LVIDs: 2.5 cm LVPWd: 0.96 cm LA dimension: 3.5 cm RVDd: 3.6 cm FS: 32.1 % LAV(MOD-bp): 30.2 ml LA A4 area: 11.3 cm2 RA A4 area: 19.8 cm2 LAV(MOD-bp) Indexed: 16.5 ml/m2 LAV(MOD-sp2): 54.8 ml LAV(MOD-sp4): 16.5 ml Time Measurements MV dec time: 0.08 sec Doppler Measurements AND Calculations MV E max tristan: 74.5 cm/sec Lat Peak E' Tristan: 7.4 cm/sec MV V2 max: 228.5 cm/sec MV A max tristan: 181.3 cm/sec E/E' lat: 10.0 MV max P.9 mmHg MV E/A: 0.41 MV V2 mean: 123.4 cm/sec MV mean P.1 mmHg MV V2 VTI: 33.0 cm MV P1/2t max tristan: 112.4 cm/sec Ao V2 max: 157.1 cm/sec LV V1 max: 124.6 cm/sec MV P1/2t: 105.2 msec Ao max P.9 mmHg LV V1 max P.2 mmHg MV dec slope: 312.7 cm/sec2 Ao V2 mean: 108.4 cm/sec MVA(P1/2t): 2.1 cm2 Ao mean P.2 mmHg Ao V2 VTI: 28.5 cm PA V2 max: 69.7 cm/sec TR max tristan: 352.2 cm/sec TR max P.6 mmHg Interpretation Summary The estimated ejection fraction is 75 %. Stage 1 diastolic dysfunction. The right atrium is mildly enlarged. Trivial tricuspid valve insufficiency. Right ventricular systolic pressure estimated to be 54 mmHg. Moderate pulmonary hypertension. The inferior vena cava is dilated No collapse of the inferior vena cava. Possible moderate size left pleural effusion. Compared to echo report dated 09/30/2013, LV function has remained the same, but RVSP has increased from 36 to 54 mm Hg. Ordering Physician: Catrachito Holley Referring Physician: Momo Carvajal Chi Performed By: Alexandra Olivarez RDCS, RVT 01/29/18 1636 Date Orlando Baer MD CC: Catrachito Holley DO; Momo Carvajal MD Date Dictated: 01/29/18 1418 Date Transcribed: 01/29/18 163 Major Account Representative: Signed HISTORY AND PHYSICAL Observed: 01/29/2018 Status: F Source: SIDNEY EXAM 4:08 PM [facility] REPOSITORY [facility] Medical Records Department [address] [place] [id number] History and Physical 01/29/18 1558 MR#: [id number] Acct: [id number] Name: ABRAN SAENZ Rep #: [id number] : 1940 77 From: Catrachito Holley DO PCP: Momo Carvajal MD, Chi Status: ADM IN Location: [facility] [id number] Problem List (1) Shortness of breath Status: Acute History of Present Illness Date of Admission: 01/29/18 Chief Complaint: Shortness of breath The patient is a 77 year old F seen in the emergency room at [facility] with a chief complaint of increased shortness of breath since her release from the hospital yesterday. Patient underwent hospitalization for hypoxia and suspected pneumonia, she was seen by pulmonary medicine who felt that the patient more than likely had atelectasis, her workup including respiratory panel was unremarkable and she was discharged yesterday afternoon with a pulse ox of 91% on room air. Patient states that during the night her breathing became more labored, on admission to the ER today her pulse ox on room air was 75%. Patient denied any chest pain, purulent sputum production, fever, or chills. Workup in the emergency room included a chest x-ray which showed evidence of CHF, patient's white blood cell count was normal, potassium was elevated at 5.6, troponin was elevated at 0.21, beta natruretic peptide was 160, BUN was 19. Patient's EKG showed normal sinus rhythm without evidence of ischemic changes. Patient was given aerosol treatments and IV Lasix, she will be admitted for acute congestive heart failure-type unknown. Past Medical History Past Medical History (Chronic Problems): Chronic Problems HTN (hypertension) (Chronic) HLD (hyperlipidemia) (Chronic) Arthrogryposis (Chronic) Single kidney (Chronic) Morbid obesity with BMI of 40.0-44.9, adult (Chronic) Allergies No Known Allergies Allergy (Verified 01/26/18 19:43) Home Medications: Ambulatory Orders Medication Instructions Recorded Aspirin [Aspirin, Baby] 81 mg PO DAILY@0800 07/12/15 Atorvastatin Calcium [Lipitor] 80 mg PO QHS 07/12/15 Calcium Carb/Vitamin D 2 tab PO DAILY 07/12/15 Surgical History: - - R Nephrectomy, Minor Surgey on the L Kidney, notable BL UE and LE corrective surgeries in her youth. Psychiatric History: No pertinent psych hx APPRISE COUNSELOR History: No pertinent APPRISE COUNSELOR history Lives: Spouse/ Significant Other Smoking Status: Never smoker Tobacco Use: Non-smoker Alcohol: None Drugs: None - *Family History Maternal History Items: Heart Disease Paternal History Items: Heart Disease Review of Systems Constitutional: Reports: Weakness, Fatigue. Denies: Anorexia, Chills, Fever, Night Sweats, Malaise, Weight Change Eyes: Denies: Blurred vision, Cataracts, Conjunctivae Inflammation, Double vision, Drainage HEENT: Denies: Difficulty Hearing, Difficulty Swallowing, Dysphasia, Ear Pain, Eye Pain, Head Aches, Hearing Changes, Nasal bleeding, Nasal Congestion Cardiovascular: Denies: Chest Pain, Claudication, Chest Pressure, Chest Tightness, Edema, Heaviness, Light Headedness, Orthopnea, Palpitations, Syncope Respiratory: Reports: Shortness of Breath, Shortness of breath at rest, Shortness of breath upon exertion, Wheezing. Denies: Cough, Hemoptysis, Pleuritic Pain, Sputum production Gastrointestinal: Denies: Abdominal Pain, Constipation, Diarrhea, Hematemesis, Hematochezia, Nausea, Melena, Vomiting Genitourinary: Denies: Dysuria, Frequency, Hematuria, Hesitancy, Urgency Gynecological: Denies: Breast symptoms Musculoskeletal: Denies: Back Pain, Foot Pain, Hand Pain, Joint Pain, Joint stiffness, Joint swelling, Joint Tenderness, Leg Pain Skin: Denies: Dryness, Pruritis, Rash Neurological: Denies: Balance problems, Blurred vision, Double vision, Slurred speech, Difficulty swallowing, Focal weakness, Headaches, Numbness, Tingling Psychiatric: Denies: Anxiety, Depression, Homicidal Ideations, Suicidal Ideations Endocrine: Denies: Change in Body Habitus, Heat/ Cold Intolerance, Polydipsia, Polyuria Hematologic/ Lymphatic: Denies: Adenopathy, Anemia, Easy Bruising, Easy Bleeding, Petechiae, Purpura VTE Information - Inpt Only VTE Present on Admission: No VTE Mechan Device Prophylaxis: None VTE Pharm Prophylaxis ordered?: Yes Patient Problems: Active and Suspected Problems Shortness of breath (Acute) - Physical Exam General: Alert, Oriented x3, Cooperative, No apparent distress, Well developed, Well nourished HEENT: Atraumatic, PERRLA, EOMI, Normocephalic Oral: Moist Mucosa Neck: Supple, No JVD, No Nuchal Rigidity, Trachea Midline, Thyroid Normal Size and Texture Lungs: No rhonchi, Diminished, Rales - Inspiratory rales and expiratory wheezes at the bases Cardiovascular: Regular rate, Regular Rhythm, Normal S1, Normal S2, No murmurs, No Ectopic Activity, PMI Normal, No rub noted, No Gallop Abdomen: Bowel Sounds Present, Soft, Non Tender, Non-Distended, No hernias noted Extremities: No clubbing, No cyanosis, No edema, Capillary Refill Less than 3 Seconds Skin: No rashes, No breakdown Musculoskeletal: No Tenderness to Palpation of Joints or Extremities Neurological: Cranial nerves II-XII grossly intact, Neuro grossly intact, Sensory exam intact to light touch and pain, Coordination normal Psych/Mental Status: Normal Affect, Appropriate, Alert and oriented to time, place, person, mood and affect Vital Signs Temp Pulse Resp BP Pulse Ox 98.5 F 102 H 18 139/72 H 95 01/29/18 12:48 01/29/18 15:35 01/29/18 12:48 01/29/18 12:54 01/29/18 12:48 Oxygen Flow Rate (L/min) 2 Oxygen Delivery Method Nasal Cannula Weight: 91.7 kg Body Mass Index (BMI) 42.2 Laboratory Tests Past 24 Hrs Troponin I 0.26 H Assessment/Plan Active and Suspected Problems Shortness of breath (Acute) #1 acute congestive heart failure-type unknown, patient will be admitted to PCU, IV Lasix will be administered, echocardiogram will be obtained, repeat chest x-ray will be obtained tomorrow #2 hypoxia secondary to #1-patient's O2 sat will be monitored, supplemental oxygen will be given #3 elevated troponin-etiology unclear at this point, enzymes will be cycled #4 hyperkalemia-this will be rechecked #5 Hypertension #6 hyperlipidemia #7 Morbid obesity Code Visit Inpatient E AND M: [id number] Init Hosp L3 01/29/18 1608 <Electronically signed by Catrachito Holley DO> Date Catrachito Holley DO Cosigner Signature: Date (if applicable) CC: Catrachito Holley DO; Momo Carvajal MD Signed EMERGENCY DEPARTMENT Observed: 01/29/2018 Status: F Source: SIDNEY SUMMARY 4:01 PM [facility] REPOSITORY [facility] Medical Records Department [address] [place] [address] Emergency Department Summary 01/29/18 0910 MR#: [id number] Acct: [id number] Name: ABRAN SAENZ Rep #: [id number] : 1940 77 From: Santino Quinones MD PCP: Momo Carvajal MD, Chi Status: ADM IN - ER Visit Summary Date of Service: 01/29/18 Chief Complaint: Shortness of breath History of Present Illness: The patient is a [address] Carvajal. She had been admitted to the hospital and was discharged yesterday on Augmentin. She reports that she felt well when she went home. However, she reports that she went to bed last night and her breathing worsened as the night went on. She has a nebulizer, but last used it prior to bed. She reports that she has severe shortness of breath. Patient reports that she has very little cough that is productive white sputum. She has had subjective fever and chills. She denies any chest pain. She reports that she is nauseated. She has had 2 loose stools this morning. No blood in her stools or black tarry stools. Physical Examination: Vitals: 97.8, 144/82, 107, 34, 75% on room air which is hypoxic. She is 94% on 4 L nasal cannula. General: Well-nourished and well-developed. Head: Normocephalic atraumatic. Neck: Supple, no lymphadenopathy. No JVD. Nontender. Cardiovascular: Regular rate and rhythm. No murmurs. Respiratory: Mild respiratory distress. Moderate wheezing bilaterally with very decreased air movement. Abdominal: Soft, nontender, nondistended, normal bowel sounds. No guarding, rebound, or peritoneal signs. Back: Nontender. Extremities: Nontender, 2+ pitting edema of her lower extremities bilaterally. Skin: Normal color, no rash. Neurologic: Alert and oriented 3. Cranial nerves II through XII are intact. Normal strength and sensation. Psych: Normal affect. Test Results: EKG is sinus at [address] changes. Initial troponin is 0.21. Chem-7 is more for sodium 130, potassium 5.6, CO2 19, BUN of 19, creatinine 0.42, glucose 129, and calcium of 8.3. CBC is more for an H AND H 10.5 and 33.2, 7 neutrophils 83, lymphs at 7 9. PT FABRIC WORKER is 160.0. Lactic acid 0.5. Chest x-rays shows progressive CHF with atelectasis and/or infiltrate in the mid right lung. Emergency Department Course and Treatment: Patient was given albuterol and Atrovent aerosols. She was given Solu-Medrol IV. She was given Lasix IV. She appears much more comfortable and has not been hypoxic since being here. Treatment Plan: The patient was discussed with Dr. Holley. She will be admitted to the hospital for further relation and treatment. Disposition: Admitted in improved condition. Impression: 1. CHF. 2. Indeterminate troponin. 3. Hyperkalemia. 4. Hypoxia. This note was generated with EasySize dictation software. It may contain incorrect words, spelling, and punctuation that were not noted in review of the chart prior to signing ED Disposition - Plan for ED Patient: Chief Complaint: Shortness of Breath Referrals: Momo Carvajal Chi, MD [Primary Care Provider] - What to do if you have Problems For any increased pain, shortness of breath, bleeding, nausea or vomiting, chest pain, or any unexpected problems, contact your Primary Care Provider. Call [facility] ([phone]) or report to the closest Emergency Room. Call 911 if necessary. 01/29/18 1601 <Electronically signed by Santino Quinones MD> Date Santino Quinones MD Cosigner Signature (If Indicated): Date CC: Momo Carvajal MD Observed: 01/29/2018 Status: F Source: CHRISTOPHER CULTURE, BLOOD (WB) 8:34 AM [facility] REPOSITORY NO ANAEROBIC BOTTLE RECEIVED BC No growth in 5 days. Performed By: #### M200.1000 #### [facility] Laboratory [address] [place], [address] CBC W/DIFF, AUTOMATED Collected: 01/29/2018 Status: F Source: SIDNEY 8:26 AM [facility] REPOSITORY TYPE CODE TESTS RESULT OUT OF RANGE REFERENCE UNITS LAB L100.1000 4.4-11.0 K/mm3 Normal WBC 10.6 LAB L100.1200 4.2-5.4 M/mm3 Low RBC 3.54 LAB L100.1300 12.0-15.0 g/dl Low HGB 10.5 LAB L100.1400 37-47 % Low HCT 33.2 LAB L100.1500 81-99 fL Normal MCV 93.8 LAB L100.1600 27.0-32.0 pg Normal MCH 29.7 LAB L100.1700 32-36 g/gl Low MCHC 31.6 LAB L100.1810 11.6-14.6 % Normal RDW CV 14.6 LAB L100.1820 35.1-43.9 fl High RDW SD 47.9 LAB L100.1900 150-450 K/mm3 Normal PLT 295 LAB L100.2000 6.2-12.0 fl Normal MPV 10.4 LAB L100.2100 47-70 % High NEUT% 82.7 LAB L100.2200 19-41 % Low LY% 9.4 LAB L100.2300 0-10 % Normal MONO% 5.8 LAB L100.2400 0-5 % Normal EO% 1.6 LAB L100.2500 0-1 % Normal BASO% 0.2 LAB L100.2550 0.0-0.9 % Normal IM GRAN % 0.300 Result Comment: IG% - Immature Granulocytes (promyelocytes, myelocytes and metamyelocytes) > 1% indicates that a LEFT SHIFT is Present. LAB L100.2620 2.0-7.7 X10 3/uL High Absolute Neut 8.8 LAB L100.2720 0.83-4.51 X10 3/ul Normal Absolute Lymph 1.00 Performed By: #### L100.0100 #### [facility] Laboratory [address] [place], [address] BASIC METABOLIC Collected: 01/29/2018 Status: F Source: SIDNEY PROFILE ([facility]) 8:26 AM [facility] REPOSITORY Order Comment: 'TROP' Serial specimen #1, #2, #3, or #4: 1 TYPE CODE TESTS RESULT OUT OF RANGE REFERENCE UNITS LAB L501.0100 74-106 mg/dL High GLU 129 Result Comment: Fasting Glucose result greater than or equal to 126 mg/dL suggests DIABETES MELLITUS per A.D.A. criteria. Please note revised GLUCOSE reference range effective 2017. LAB L501.1000 7-18 mg/dL High BUN 19 LAB L501.1100 0.55-1.02 mg/dL Low CREAT,SERUM 0.42 Result Comment: The validity of the calculated GFR AND GFRAA in patients over 70 years has not been determined. Clinical correlation is essential. LAB L501.1110 >60 mL/min Normal EST GFR 158 Result Comment: Non- GFR Calc LAB L501.1115 >60 mL/min Normal EST GFR - AA 192 Result Comment: GFR Calc LAB L501.1255 ml/min Normal Estimated CRCL 73.44 LAB L501.1300 10-20 RATIO High BUN/CRE 45.8 LAB L501.2200 8.5-10 mg/dL Low .1 CA 8.3 LAB L501.5300 136-14 mmol/L Low 5 NA 130 LAB L501.5600 3.5-5. mmol/L High 1 K 5.6 LAB L501.5900 98-107 mmol/L Normal CL 101 LAB L501.6100 21.0-3 mmol/L Low 2.0 CO2 19.0 LAB L501.6200 5-15 Normal GAP 10 Performed By: #### L500.2500, L501.4010 #### [facility] Laboratory [address] [place], [address] TROPONIN-I Collected: 01/29/2018 Status: F Source: CHRISTOPHER 8:26 AM [facility] REPOSITORY Order Comment: 'TROP' Serial specimen #1, #2, #3, or #4: 1 TYPE CODE TESTS RESULT OUT OF RANGE REFERENCE UNITS LAB L501.4010 <0.06 ng/mL High 0.21 TROPONIN-I Result Comment: TROPONIN-I EXPECTED VALUES <0.05 NEGATIVE 0.06 - 0.59 AT RISK OF [facility] > OR = 0.60 SUGGEST VA Performed By: #### L500.2500, L501.4010 #### [facility] Laboratory [address] [place], [address] BNP,B-TYPE NATRIURETIC Collected: 01/29/2018 Status: F Source: SIDNEY PEPTIDE 8:26 AM [facility] REPOSITORY TYPE CODE TESTS RESULT OUT OF RANGE REFERENCE UNITS LAB L503.6620 0-100 pg/mL High B-TYPE 160.0 THOMAS PEP Performed By: #### L503.6620 #### [facility] Laboratory [address] [place], [address] LACTIC ACID Collected: 01/29/2018 Status: F Source: CHRISTOPHER 8:26 AM [facility] REPOSITORY Order Comment: Yes/No query for Sepsis Lactate Rule Y TYPE CODE TESTS RESULT OUT OF RANGE REFERENCE UNITS LAB L503.6005 0.4-2.0 mmol/L Normal LACTIC ACID 0.5 Performed By: #### L503.6005 #### [facility] [address] [place], [address] Observed: 01/29/2018 Status: F Source: SIDNEY CULTURE, BLOOD (WB) 8:26 AM [facility] REPOSITORY NO ANAEROBIC BOTTLE RECEIVED BC No growth in 5 days. Performed By: #### M200.1000 #### [facility] [address] [place], [place], [address] CHEST PA AND LATERAL Observed: 01/29/2018 Status: F Source: CHRISTOPHER 7:35 AM [facility] REPOSITORY [facility] Imaging Services [address] [place] [address] Chest PA and Lateral MR#: [id number] Acct: [id number] Name: ABRAN SAENZ Rep #: [id number] : 1940 F 77 From: Angel Kyle MD PCP: Wei PRYOR,[facility] Status: REG ER Study: Chest PA and Lateral Date of Exam: 01/29/18 Exam# [id number] Ordering Dr: Santino Quinones MD STUDY: X-RAY CHEST REASON FOR EXAM: Female, 77 years old. Shortness of breath. TECHNIQUE: AP and lateral views of the chest. COMPARISON: Comparison is made with prior study dated January 28, 2018. FINDINGS: EKG electrodes are seen. Progressive CHF. New atelectasis and/or infiltrate in the right midlung. Blunting of both costophrenic angles. There is moderate cardiac enlargement. Normal mediastinum and fouzia. Normal visualized pulmonary arteries. There is atherosclerotic tortuosity of the aortic arch and descending thoracic aorta. There is a dextroscoliosis of the thoracic spine. There is degenerative osteoarthritis of the bilateral shoulders. There is no demonstrated abnormality of the visualized soft tissue structures of the upper abdomen. RAD/Chest PA and Lateral IMPRESSION: Progressive CHF with atelectasis and/or infiltrate in the right midlung. Electronically Signed: Angel Kyle MD at 9:20 EDT Tel [phone], Service support , CC: Santino Quinones MD; Momo Carvajal MD Major Account Representative: Signed CONSULTATION Observed: 01/28/2018 Status: F Source: SIDNEY 4:11 PM [facility] REPOSITORY [facility] Medical Records Department [address] [place] [address] Consultation 01/28/18 1009 MR#: [id number] Acct: [id number] Name: ABRAN SAENZ Rep #: [id number] : 1940 77 From: Liza Rivera FABRIC WORKER-C PCP: Momo Carvajal MD, Chi Status: ADM IN Y Location: ICU [id number] ADDENDUM by Jerry Walton MD on 01/28/18 at 1611 Code Visit Patient seen and examined independently in conjunction with nurse practitioner. All data, including note below, was personally reviewed and I agree with the added comments. In brief, patient presented to [facility] on 01/26/2018 secondary to fever, shortness of breath and productive cough for 4-5 days. Patient had also reported a concomitant sore throat. Patient reports this typically happens twice every winter. Patient does have a history of arthrogryposis leading to significant disability. Patient states that she walks a limited distance on a normal basis and has become more wheelchair- bound recently. Patient states that typically she is treated with antibiotic and steroid injections with improvement. On presentation, patient was noted to have a left lower lobe pneumonia. Patient was initiated on antibiotics and supplemental oxygen with improvement. Physical exam was independently performed. Patient's blood pressure was marginal and saturations were only noted to be 90-92% on room air. Mild thrush was noted. Patient did have decreased air exchange at the left base noted, but no dullness to percussion. Symmetric expansion was noted, but there was some constriction secondary to kyphoscoliosis and obesity. Generalized muscle atrophy was also noted. Laboratory workup did show a significant leukocytosis that improved throughout the hospitalization. Viral, influenza and sputum cultures were all negative. 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 Discussed with patient at length about the use of pulmonary function tests and quantification and medication of lung function. Patient is currently asking to go home and this may be reasonable as long as patient's oxygen saturation is acceptable on room air. If patient's saturation is below 89%, disposition with supplemental oxygen and outpatient workup would be reasonable. As needed albuterol would be appropriate until further information is available. Patient should continue with pulmonary toileting measures, incentive spirometer and complete a seven-day course of antibiotics. Unclear utility of steroid burst given lack of history of obstructive lung disease. Patient does have concomitant congestive heart failure, which does complicate overall clinical picture. Inpatient E AND M: [id number] Init Hosp L2 01/28/18 1611 <Electronically signed by Jerry Walton MD> Date Jerry Walton MD cc: Jerry Walton MD; Momo Carvajal MD * Signed Problem List (1) Pneumonia Status: Acute Qualifiers: Pneumonia type: due to unspecified organism Laterality: left Lung location: lower lobe of lung Qualified Code(s): J18.1 - Lobar pneumonia, unspecified organism (2) HTN (hypertension) Status: Chronic Qualifiers: Hypertension type: essential hypertension Qualified Code(s): I10 - Essential (primary) hypertension (3) HLD (hyperlipidemia) Status: Chronic Qualifiers: Hyperlipidemia type: unspecified Qualified Code(s): E78.5 - Hyperlipidemia, unspecified (4) Arthrogryposis Status: Chronic (5) Single kidney Status: Chronic (6) Morbid obesity with BMI of 40.0-44.9, adult Status: Chronic Reason for Consult Date of Consultation: 01/28/18 Reason for Consultation: abnormal chest x-ray History of Present Illness: The patient is a 77 year old F past medical history as below who presented to the ED on 01/26/18 with complaints of fever 100.5 F, increased shortness of breath, and productive cough for the last 4-5 days. Also had a severe sore throat. Denied any chills. Patient reports her cough is chronic, however she did have an increase in sputum production of clear to yellow. Patient states I should have waited to go to see Dr. Carvajal because he typically gives her a steroid injection and taper for this kind of illness, she gets it twice a year. Patient states she got pneumonia secondary to using cough medicine. Patient denies any recent sick contacts, hospitalizations, or steroid bursts. She complains of some intermittent wheezing, but overall her shortness of breath has improved. Patient is debilitated secondary to arthrogryposis and wears leg braces to ambulate. She denies any history of chronic lung disease. She has been a non-smoker her entire life. She has never required pulmonary workup, no previous pulmonary function tests. Patient was placed on an albuterol nebulizer by her PCP to use as needed during illness. She typically uses this throughout the winter. She has been using it every 4-6 hours at home. She denies any other inhaler use. She denies any occupational exposures, no tuberculosis or asbestos. Initial vital signs BP 98/47, pulse 90, RR 20, temp 100.4 F, and 90% on room air. Patient was then 88% on room air and was placed on 3 L of oxygen and recovered to 97%. Initial blood work showing leukocytosis of 13,600, hemoglobin 11.4, normal BUN of 14 and creatinine 0.51. BNP 118. Urinalysis not indicating infection. Initial chest x-ray showed mild pulmonary vascular congestion and mild cardiomegaly. CTA of the chest was obtained to rule out PE, there was no demonstrated PE or arterial dissection, partial consolidation was noted in the left lower lobe. She was placed on antibiotics and given aerosols and Tylenol for her fever. Blood cultures obtained and are pending. Urine strep/Legionella was negative. Respiratory viral panel negative. Preliminary sputum culture showing normal respiratory yesika. Patient is was admitted to the floor for further evaluation and management. The patient has been weaned to room air and is saturating 96%. She denies any current shortness of breath. She has refused physical therapy, states she can walk on her own. Patient has been receiving scheduled DuoNeb aerosols with PRN albuterol. She has tried taking Tessalon Perle for cough. Patient receiving Rocephin for presumed pneumonia. She is on her baseline diuretic therapy. Her sore throat has significantly improved. She would like to have steroids and go home. Past Medical History Past Medical History (Chronic Problems): Chronic Problems HTN (hypertension) (Chronic) HLD (hyperlipidemia) (Chronic) Arthrogryposis (Chronic) Single kidney (Chronic) Morbid obesity with BMI of 40.0-44.9, adult (Chronic) Allergies No Known Allergies Allergy (Verified 01/26/18 19:43) Home Medications: Ambulatory Orders Medication Instructions Recorded Aspirin [Aspirin, Baby] 81 mg PO DAILY@0800 07/12/15 Atorvastatin Calcium [Lipitor] 80 mg PO QHS 07/12/15 Surgical History: - - R Nephrectomy, Minor Surgey on the L Kidney, notable BL UE and LE corrective surgeries in her youth. Psychiatric History: No pertinent psych hx APPRISE COUNSELOR History: No pertinent APPRISE COUNSELOR history Lives: Spouse/ Significant Other Smoking Status: Never smoker Tobacco Use: Non-smoker Alcohol: None Drugs: None - *Family History Maternal History Items: Heart Disease Paternal History Items: Heart Disease Review of Systems Constitutional: Reports: Fever. Denies: Anorexia, Chills Eyes: Denies: Vision Change HEENT: Reports: Post Nasal Drip, Sinus Congestion, Sore Throat. Denies: Difficulty Swallowing, Nasal Congestion, Sinus Drainage Cardiovascular: Reports: Edema - resolved, Orthopnea. Denies: Chest Pain, Chest Tightness, Light Headedness, Palpitations, Paroxysmal Noc. Dyspnea, Syncope Respiratory: Reports: Cough - chronic, Shortness of breath upon exertion. Denies: Hemoptysis, Shortness of breath at rest Gastrointestinal: Denies: Abdominal Pain, Constipation, Diarrhea, Dyspepsia, Hematemesis, Hematochezia, Nausea, Melena, Vomiting Genitourinary: Denies: Dysuria, Hematuria, Nocturia, Retention Musculoskeletal: Reports: Neck Pain - chronic. Denies: Back Pain, Muscle pain Skin: Denies: Dryness, Rash, Wounds Neurological: Reports: Balance problems - chronic. Denies: Change in Speech, Confusion, Difficulty swallowing, Focal weakness, Headaches, Numbness, Tingling, Tremor, Seizures Psychiatric: Denies: Anxiety, Depression Endocrine: Denies: Change in Body Habitus, Polydipsia, Polyuria Hematologic/ Lymphatic: Reports: Anemia. Denies: Adenopathy, Easy Bruising, Easy Bleeding, Hx of blood clot Patient Problems: Active and Suspected Problems Hypoxia (Acute) Pneumonia (Acute) Sepsis (Acute) Subjective: The patient was seen and examined. Her is at the bedside. She denies any current shortness of breath, chest discomfort, dizziness, or pain. She does have a persistent cough, but states this is chronic for her. She is still coughing up some clear to yellow sputum, however this has improved. Objective: Clinical Impression(s) from Imaging Studies Chest X-Ray 01/26/18 21:30 IMPRESSION: Mild pulmonary vascular congestion. Mild cardiomegaly. Electronically Signed: Vincent Hidalgo DO at 22:10 EDT , Service support , Chest CTA 01/26/18 23:19 IMPRESSION: No demonstrated pulmonary embolism or arterial dissection. Pneumonia in the left lower lobe. Electronically Signed: Bonnie Torres MD at 1:35 EDT Tel , Service support , Chest X-Ray 01/28/18 05:55 IMPRESSION: Cardiomegaly and progressive CHF. Electronically Signed: Angel Kyle MD at 8:55 EDT Tel [phone], Service support , - Physical Exam General: Alert, Oriented x3, Cooperative, No apparent distress, Well developed, Well nourished HEENT: Atraumatic, PERRLA, Normocephalic Oral: Moist Mucosa, No Gingival or Mucosal Lesions/ Ulcerations, - - Mild thrush Neck: Supple, No JVD, No Nodes, Trachea Midline, - - Congenital spinal deformities, large neck circumference Lungs: Diminished, - - Minimal rhonchi, expiratory wheeze with forced expiration. No dullness to percussion and symmetric expansion. Minimal rales to L base that clear with cough. Cardiovascular: Regular rate, Regular Rhythm, Normal S1, Normal S2, Gallops Abdomen: Bowel Sounds Present, Soft, Non Tender, Obese Extremities: No clubbing, No cyanosis, No edema, Diminished Peripheral Pulses, - - multiple deformities with contracted UEs. Leg shortening Skin: No rashes, No breakdown Musculoskeletal: No Tenderness to Palpation of Joints or Extremities, - - generalized muscle atrophy Lymphatic: No Cervical, Supraclavicular, or Inguinal Adenopathy Neurological: Cranial nerves II-XII grossly intact, Neuro grossly intact, Motor Exam 5/5 strength throughout Psych/Mental Status: Alert and oriented to time, place, person, mood and affect Vital Signs Temp Pulse Resp BP Pulse Ox 98.5 F 96 20 H 94/55 L 96 01/28/18 08:00 01/28/18 08:00 01/28/18 08:00 01/28/18 08:00 01/28/18 08:00 Oxygen Flow Rate (L/min) 2 Oxygen Delivery Method Room Air Weight: 197 lb 1.492 oz Body Mass Index (BMI) 41.1 Intake and Output for Last 24 Hours Intake Total 2469.5 / 2469.5 240 / 240 Balance 2469.5 / 2469.5 240 / 240 Microbiology Past 72 Hours 01/27/18 15:10 Gram Stain - Final Sputum, Expectorated/Coughed Respiratory Culture - Preliminary Laboratory Tests Past 24 Hrs WBC 10.0 RBC 3.31 L Hgb 10.0 L Hct 32.1 L Assessment/Plan Active and Suspected Problems Hypoxia (Acute) Pneumonia (Acute) Sepsis (Acute) RECOMMENDATIONS 1. Wean oxygen supplementation to keep saturations greater than 89%. 2. Encourage incentive spirometer/Acapella 3. Increase activity as tolerated 4. Continue scheduled Duonebs with PRN albuterol 5. Continue antibiotics, await final sputum and blood cultures 6. Ambulatory pulse ox prior to discharge, if able 7. Consider escalating diuretic therapy if respiratory status declines, however caution with single kidney 8. No indication for steroids at this time 9. Patient will likely be ready for discharge in the next 24-48 hours IMPRESSIONS 1. Acute hypoxic respiratory insufficiency secondary to community- acquired pneumonia Improved, patient now maintaining saturations on room air. CTA of the chest 01/26 did show a consolidation in left lower lobe. There is no demonstrated PE or dissection. Repeat chest x-ray 01/28 showed worsening cardiomegaly and progressive CHF. Patient also likely has element of atelectasis/compression secondary to her arthrogryposis/congenital abnormalities. It is difficult for her to take deep breaths, but denies shortness of breath. She has no wheezing except with forced expiration. She is mildly hypotensive, unsure of her baseline blood pressure readings. She has remained afebrile and leukocytosis has resolved. Would continue with antibiotics for infiltrates and scheduled aerosols. Await infectious workup. If able, can obtain ambulatory pulse ox prior to discharge to assess for exertional hypoxia. Supplemental oxygen to keep saturations greater than 89%. 2. Hypertension/hyperlipidemia/arthrogryposis/single kidney/morbid obesity and debility Complicates care, management, recovery, and prognosis. Likely okay to continue home medications. Lovenox and SCDs for DVT prophylaxis. Patient has been refusing physical therapy, states it is complicated for her to ambulate and she would rather do on her own. Thank you for the opportunity to participate in this patient's care, please do not hesitate to contact us with any further questions or concerns. This note was generated with [employer] dictation software. It may contain incorrect words, spelling, and punctuation that were not noted in checking the note before signing. 01/28/18 1118 <Electronically signed by Liza HIRSCH> Date Liza HIRSCH Cosigner Signature (if applicable): Date CC: Jerry Walton MD; Momo Carvajal MD Signed DISCHARGE INSTRUCTION Observed: 01/28/2018 Status: F Source: SIDNEY 4:11 PM [facility] REPOSITORY [facility] Medical Records Department [address] [place] [address] Instructions for Home/Discharge Instructions 01/28/18 1608 MR#: [id number] Acct: [id number] Name: ABRAN SAENZ Rep #: [id number] : 1940 77 From: Catrachito Holley DO PCP: Wei PRYOR,Momo Pfeiffer Status: ADM IN - Discharge Diagnoses Current Active Problems: Current Active and Chronic Problems HTN (hypertension) (Chronic) HLD (hyperlipidemia) (Chronic) Arthrogryposis (Chronic) Single kidney (Chronic) Hypoxia (Acute) Pneumonia (Acute) Sepsis (Acute) Morbid obesity with BMI of 40.0-44.9, adult (Chronic) You will use the following diet at home:: No restrictions Your food should be the consistency of: Regular Your liquids should be the consistency of: Regular/Thin Discharge Activity: Return to Normal Activity Weight Bearing Status: - - resume normal activity level Allergies/Adverse Reactions: Allergies No Known Allergies Allergy (Verified 01/26/18 19:43) Medications to take at Discharge Aspirin [Aspirin, Baby] 81 mg PO DAILY@0800 07/12/15 Atorvastatin Calcium [Lipitor] 80 mg PO QHS 07/12/15 Calcium Carb/Vitamin D [Caltrate-600 With Vit D Tab] 2 tab PO DAILY 07/12/15 Furosemide 40 mg PO DAILY 07/12/15 Lisinopril [Zestril] 5 mg PO 07/12/15 Potassium Chloride [K-Dur] 10 meq PO 4X/DAY 07/12/15 Dibucaine [Nupercainal] 56.7 gm RC 4X/DAY PRN PRN #1 oint...g. 09/28/15 Benzonatate [Tessalon Perle] 100 mg PO TID PRN 01/26/18 Amoxicillin/Potassium Clav [Augmentin 875-125 Tablet] 1 ea PO BIDCM #10 tab 01/28/18 The following prescriptions were given: Amoxicillin/Potassium Clav [Augmentin 875-125 Tablet] 1 ea PO BIDCM #10 tab Primary Care Physician: Momo Carvajal Chi, MD [Primary Care Provider] - Please follow up with your Primary Care Physician in: in 1- 2 weeks Please Follow Up With: Jerry Walton MD When: in 2 weeks-call for appointment 01/28/18 4011 <Electronically signed by Catrachito Holley DO> Date Catrachito Leydi TH[place]PS[place] CC: Jerry Walton MD; Momo Carvajal MD 12 LEAD ELECTROCARDIOGRAM Observed: 01/28/2018 Status: F Source: CHRISTOPHER 3:16 PM [facility] REPOSITORY [facility] Cardiovascular Services [address] [place] [address] 12 Lead EKG 01/26/18 2134 MR#: [id number] Acct: [id number] Name: ABRAN SAENZ Rep #: [id number] : 1940 77 From: Gamaliel Capellan MD Attending Dr: Catrachito Holley DO Status: ADM IN Ordering Dr: Anna Quintanilla MD Date: 01/26/18 Location: ICU Sex: F C Admitted: 01/27/18 Test Reason : FEVER Blood Pressure : / mmHG Vent. Rate : 098 BPM Atrial Rate : 098 BPM P-R Int : 186 ms QRS Dur : 096 ms QT Int : 350 ms P-R-T Axes : 056 061 049 degrees QTc Int : 446 ms Normal sinus rhythm Low voltage QRS Borderline ECG Confirmed by TIMI PRYOR, GAMALIEL ([id number]), newspaper managing editor LEON DURAN ([id number]) on 01/28/2018 3:16:36 PM Referred By: DAYNA Confirmed By:GAMALIEL CAPELLAN MD 01/28/18 1516 Date Gamaliel Capellan MD CC: Anna Quintanilla MD; Momo Carvajal MD Signed CBC W/DIFF, AUTOMATED Collected: 01/28/2018 Status: F Source: CHRISTOPHER 4:25 AM [facility] REPOSITORY TYPE CODE TESTS RESULT OUT OF RANGE REFERENCE UNITS LAB L100.1000 4.4-11.0 K/mm3 Normal WBC 10.0 LAB L100.1200 4.2-5.4 M/mm3 Low RBC 3.31 LAB L100.1300 12.0-15.0 g/dl Low HGB 10.0 LAB L100.1400 37-47 % Low HCT 32.1 LAB L100.1500 81-99 fL Normal MCV 97.0 LAB L100.1600 27.0-32.0 pg Normal MCH 30.2 LAB L100.1700 32-36 g/gl Low MCHC 31.2 LAB L100.1810 11.6-14.6 % High RDW CV 14.9 LAB L100.1820 35.1-43.9 fl High RDW SD 50.7 LAB L100.1900 150-450 K/mm3 Normal PLT 301 LAB L100.2000 6.2-12.0 fl Normal MPV 9.5 LAB L100.2100 47-70 % High NEUT% 75.1 LAB L100.2200 19-41 % Low LY% 12.1 LAB L100.2300 0-10 % Normal MONO% 9.7 LAB L100.2400 0-5 % Normal EO% 2.6 LAB L100.2500 0-1 % Normal BASO% 0.2 LAB L100.2550 0.0-0.9 % Normal IM GRAN % 0.300 Result Comment: IG% - Immature Granulocytes (promyelocytes, myelocytes and metamyelocytes) > 1% indicates that a LEFT SHIFT is Present. LAB L100.2620 2.0-7.7 X10 3/uL Normal Absolute Neut 7.5 LAB L100.2720 0.83-4.51 X10 3/ul Normal Absolute Lymph 1.21 Performed By: #### L100.0100 #### [facility] [address] [place], [place], [address] BNP,B-TYPE NATRIURETIC Collected: 01/28/2018 Status: F Source: SIDNEY PEPTIDE 4:25 AM [facility] REPOSITORY TYPE CODE TESTS RESULT OUT OF RANGE REFERENCE UNITS LAB L503.6620 0-100 pg/mL Normal B-TYPE 65.0 THOMAS PEP Performed By: #### L503.6620 #### [facility] [address] [place], [place], [address] CHEST 1 VIEW Observed: 01/28/2018 Status: F Source: CHRISTOPHER (PORTABLE) 12:44 AM [facility] REPOSITORY [facility] Imaging Services [address] [place] [address] Chest 1 View (Portable) MR#: [id number] Acct: [id number] Name: ABRAN SAENZ Rep #: [id number] : 1940 F 77 From: Angel Kyle MD PCP: Momo Carvajal MD, Chi Status: ADM IN Study: Chest 1 View (Portable) Date of Exam: 01/28/18 Exam# [id number] Ordering Dr: Stephen Lay MD STUDY: X-RAY CHEST REASON FOR EXAM: Female, 77 years old. Cough. TECHNIQUE: Single AP portable view of the chest. COMPARISON: Comparison is made with prior study dated January 26, 2018. FINDINGS: EKG electrodes are seen. Is evidence of vascular congestion and mild CHF. This has progressed as compared to prior study. There is no demonstrated pleural abnormality. There is moderate cardiac enlargement. Normal mediastinum and fouzia. Normal visualized pulmonary arteries. There is atherosclerotic tortuosity of the aortic arch and descending thoracic aorta. Normal visualized thoracic spine. Normal visualized ribs, clavicles, and shoulders. There is no demonstrated abnormality of the visualized soft tissue structures of the upper abdomen. RAD/Chest 1 View (Portable) IMPRESSION: Cardiomegaly and progressive CHF. Electronically Signed: Angel Kyle MD at 8:55 EDT Tel [phone], Service support , CC: Stephen Lay MD; Momo Carvajal MD Major Account Representative: Signed Observed: 01/27/2018 Status: F Source: SIDNEY CULTURE, SPUTUM 3:10 PM [facility] REPOSITORY Gram Stain Acceptable Specimen? Yes (<25 Epithelial cells per/lpf) Centrifuged Specimen? N/A Gram Stain 2+ White Blood Cells 1+ Epithelial cells 1+ Gram positive cocci Rare Gram positive rods Rare Gram negative rods Resp. Culture Mixed normal respiratory yesika. No Haemophilus, Streptococcus pneumoniae, beta-hemolytic Streptococcus or Staphylococcus aureus isolated. Performed By: #### M100.0800 #### [facility] [address] [place], [address] CBC W/DIFF, AUTOMATED Collected: 01/27/2018 Status: F Source: SIDNEY 4:00 AM [facility] REPOSITORY TYPE CODE TESTS RESULT OUT OF RANGE REFERENCE UNITS LAB L100.1000 4.4-11.0 K/mm3 Normal WBC 9.9 LAB L100.1200 4.2-5.4 M/mm3 Low RBC 3.35 LAB L100.1300 12.0-15.0 g/dl Low HGB 10.1 LAB L100.1400 37-47 % Low HCT 32.2 LAB L100.1500 81-99 fL Normal MCV 96.1 LAB L100.1600 27.0-32.0 pg Normal MCH 30.1 LAB L100.1700 32-36 g/gl Low MCHC 31.4 LAB L100.1810 11.6-14.6 % Normal RDW CV 14.5 LAB L100.1820 35.1-43.9 fl High RDW SD 48.2 LAB L100.1900 150-450 K/mm3 Normal PLT 309 LAB L100.2000 6.2-12.0 fl Normal MPV 9.7 LAB L100.2100 47-70 % High NEUT% 73.8 LAB L100.2200 19-41 % Low LY% 14.6 LAB L100.2300 0-10 % High MONO% 10.3 LAB L100.2400 0-5 % Normal EO% 0.9 LAB L100.2500 0-1 % Normal BASO% 0.2 LAB L100.2550 0.0-0.9 % Normal IM GRAN % 0.200 Result Comment: IG% - Immature Granulocytes (promyelocytes, myelocytes and metamyelocytes) > 1% indicates that a LEFT SHIFT is Present. LAB L100.2620 2.0-7.7 X10 3/uL Normal Absolute Neut 7.3 LAB L100.2720 0.83-4.51 X10 3/ul Normal Absolute Lymph 1.45 Performed By: #### L100.0100 #### [facility] [address] [place], [address] MAGNESIUM Collected: 01/27/2018 Status: F Source: SIDNEY 4:00 AM [facility] REPOSITORY TYPE CODE TESTS RESULT OUT OF RANGE REFERENCE UNITS LAB L501.5200 1.6-2.6 mg/dL Normal MG 2.2 Result Comment: Please note revised Magnesium reference range effective 2017. Performed By: #### L501.5200 #### [facility] [address] [place], [address] BASIC METABOLIC Collected: 01/27/2018 Status: F Source: CHRISTOPHER PROFILE (BMP) 4:00 AM [facility] REPOSITORY TYPE CODE TESTS RESULT OUT OF RANGE REFERENCE UNITS LAB L501.0100 74-106 mg/dL High GLU 137 Result Comment: Fasting Glucose result greater than or equal to 126 mg/dL suggests DIABETES MELLITUS per A.D.A. criteria. Please note revised GLUCOSE reference range effective 2017. LAB L501.1000 7-18 mg/dL Normal BUN 15 LAB L501.1100 0.55-1.02 mg/dL Low CREAT,SERUM 0.49 Result Comment: The validity of the calculated GFR AND GFRAA in patients over 70 years has not been determined. Clinical correlation is essential. LAB L501.1110 >60 mL/min Normal EST GFR 132 Result Comment: Non- GFR Calc LAB L501.1115 >60 mL/min Normal EST GFR - AA 160 Result Comment: GFR Calc LAB L501.1255 ml/min Normal Estimated CRCL 68.60 LAB L501.1300 10-20 RATIO High BUN/CRE 30.9 LAB L501.2200 8.5-10 mg/dL Low .1 CA 8.1 LAB L501.5300 136-14 mmol/L Normal 5 NA 136 LAB L501.5600 3.5-5. mmol/L Normal 1 K 3.8 LAB L501.5900 98-107 mmol/L Normal CL 99 LAB L501.6100 21.0-3 mmol/L Normal 2.0 CO2 30.0 LAB L501.6200 5-15 Normal GAP 7 Performed By: #### L500.2500 #### [facility] [address] [place], [address] HEMOGLOBIN A1C Collected: 01/27/2018 Status: F Source: CHRISTOPHER 4:00 AM [facility] REPOSITORY TYPE CODE TESTS RESULT OUT OF RANGE REFERENCE UNITS LAB L501.9985 4.2-6.3 % Normal HGB A1C 5.6 Performed By: #### L501.9985 #### [facility] [address] [place], [address] HISTORY AND PHYSICAL Observed: 01/27/2018 Status: F Source: SIDNEY EXAM 3:52 AM [facility] REPOSITORY [facility] Medical Records Department [address] [place] [address] History and Physical 01/27/18 0149 MR#: [id number] Acct: [id number] Name: ABRAN SAENZ Rep #: [id number] : 1940 77 From: Indu Herr PCP: Wei PRYOR,Momo TapMyBack Status: ADM IN Y Location: ICU [id number] Problem List (1) HTN (hypertension) Status: Chronic Qualifiers: Hypertension type: essential hypertension Qualified Code(s): I10 - Essential (primary) hypertension (2) HLD (hyperlipidemia) Status: Chronic Qualifiers: Hyperlipidemia type: unspecified Qualified Code(s): E78.5 - Hyperlipidemia, unspecified (3) Arthrogryposis Status: Chronic (4) Single kidney Status: Chronic (5) Hypoxia Status: Acute (6) Pneumonia Status: Acute Qualifiers: Pneumonia type: due to unspecified organism Laterality: left Lung location: lower lobe of lung Qualified Code(s): J18.1 - Lobar pneumonia, unspecified organism (7) Sepsis Status: Acute Qualifiers: Sepsis type: sepsis due to unspecified organism Qualified Code(s): A41.9 - Sepsis, unspecified organism (8) Morbid obesity with BMI of 40.0-44.9, adult Status: Chronic History of Present Illness Date of Admission: 01/27/18 Chief Complaint: Cough, Fever, Dyspnea The patient is a 77 y/o F w/ PMHx: HTN, HLD, Morbid Obesity, Arthrogryposis w/ usage of BL LE braces and several BL UE and BL LE surgeries in her youth, Single kidney s/p nephrectomy who presents to the [facility] ED on 01/27/18 w/ ongoing fever, chills, dyspnea, minimally productive cough as well as sore throat x 3-4 days, not improving with OTC flu and cold regimen. In the ED work-up included T 100.4--> 98.7, HR 109-->89, BP 98/47, initially 88-89% on RA-->97% on 3L NC, RR 20s, CBC w/ WBC 13.6, Hgb 11.4, Plts 342 with L shift, BMP w/ BUN/Cr 14/0.51, glucose 143, trop < 0.02, LA 1.1, BNP 118.1, UA not marked, EKG w/ SR, CXR with ? congestion, CTPA w/ no acute PE but noted LLL PNA. In the ED patient administered NS, rocephin, azithromycin, duoneb, albuterol, tylenol. Past Medical History Past Medical History (Chronic Problems): Chronic Problems HTN (hypertension) (Chronic) HLD (hyperlipidemia) (Chronic) Arthrogryposis (Chronic) Single kidney (Chronic) Morbid obesity with BMI of 40.0-44.9, adult (Chronic) Allergies No Known Allergies Allergy (Verified 01/26/18 19:43) Home Medications: Ambulatory Orders Medication Instructions Recorded Aspirin [Aspirin, Baby] 81 mg PO DAILY@0800 07/12/15 Atorvastatin Calcium [Lipitor] 80 mg PO QHS 07/12/15 Surgical History: - - R Nephrectomy, Minor Surgey on the L Kidney, notable BL UE and LE corrective surgeries in her youth. Psychiatric History: No pertinent psych hx APPRISE COUNSELOR History: No pertinent APPRISE COUNSELOR history Lives: Spouse/ Significant Other Smoking Status: Never smoker Tobacco Use: Non-smoker Alcohol: None Drugs: None - *Family History Maternal History Items: Heart Disease Paternal History Items: Heart Disease Review of Systems Constitutional: Reports: Anorexia, Chills, Fever, Malaise, Weakness, Fatigue. Denies: Weight Change HEENT: Reports: Nasal Congestion, Post Nasal Drip, Sinus Congestion, Sore Throat. Denies: Head Aches, Sinus Drainage Cardiovascular: Denies: Chest Pain, Palpitations Respiratory: Reports: Cough, Shortness of Breath, Shortness of breath at rest, Shortness of breath upon exertion, Sputum production Gastrointestinal: Denies: Abdominal Pain, Nausea, Vomiting Genitourinary: Denies: Dysuria Musculoskeletal: Reports: Joint Pain, Joint stiffness, Joint swelling, Joint Tenderness, Leg Pain Skin: Denies: Rash, Wounds Neurological: Denies: Numbness, Tingling, Focal weakness Psychiatric: Denies: Anxiety, Depression, Homicidal Ideations, Suicidal Ideations Hematologic/ Lymphatic: Reports: Anemia. Denies: Easy Bruising, Easy Bleeding VTE Information - Inpt Only VTE Present on Admission: No VTE Mechan Device Prophylaxis: SCD's VTE Pharm Prophylaxis ordered?: Yes Patient Problems: Active and Suspected Problems Hypoxia (Acute) Pneumonia (Acute) Sepsis (Acute) Subjective: Seated upright in the ED bed, NAD. Objective: Physical Examination: General: awake, alert, oriented x 3 and cooperative, seated upright in the ED bed in no apparent distress. Skin: normal color, turgor, no icterus, cyanosis. HEENT: AT/NC, EOMI, PERRLA, dry MM, no carotid bruits or JVD noted. Lungs: Diminished BS BL, > L, occasional soft expiratory wheeze, mild effort. Heart: Tachycardic with regular rhythm; no gallop, rub audible. Abdomen: soft, morbidly obese, NTTP, ND, normal BS, no HSM; however, habitus makes examination difficult. Extremities: no cyanosis, clubbing, BL LE and UE congenital deformities, s/p several surgical interventions. Neurological: patient awake, alert, oriented x 3; cognitive function intact; pupils equally reactive to light and accomodation; cranial nerves II-XII grossly normal, moving BL LE, severe limitations BL UE with severe BL LE and UE deformities, strength severely globally decreased secondary to acute presentation. Psychiatric: affect appears fatigued, no acute evidence of depressive or anxiety feelings. - Physical Exam Vital Signs Temp Pulse Resp BP Pulse Ox 98.7 F 92 25 H 109/60 96 01/27/18 00:17 01/27/18 01:13 01/27/18 01:13 01/27/18 01:13 01/27/18 01:13 Oxygen Flow Rate (L/min) 2 Oxygen Delivery Method Nasal Cannula Weight: 190 lb Body Mass Index (BMI) 39.6 Microbiology Past 72 Hours 01/26/18 21:24 Influenza Types A,B Direct FA (THERESA) - Final Mucosa - Nose Laboratory Tests Past 24 Hrs WBC 13.6 H RBC 3.83 L Hgb 11.4 L Hct 36.4 L MCV 95.0 MCH 29.8 MCHC 31.3 L RDW 14.8 H RDW Differential 50.2 H WBC RBC Hgb Hct Assessment/Plan Active and Suspected Problems Hypoxia (Acute) Pneumonia (Acute) Sepsis (Acute) The patient is a 77 y/o F w/ PMHx: HTN, HLD, Morbid Obesity, Arthrogryposis w/ usage of BL LE braces and several BL UE and BL LE surgeries in her youth, Single kidney s/p nephrectomy who presents to the [facility] ED on 01/27/18 w/ ongoing fever, chills, dyspnea, minimally productive cough as well as sore throat x 3-4 days, not improving with OTC flu and cold regimen. (1) Hypoxia, Sepsis secondary to Community Acquired: CTPA in the ED w/ LLL PNA. Admission CBC w/ WBC 13.6 with L shift. Will admit to PCU, maintain on oxygen with wean as tolerated to room air, continue ATC duonebs, PRN albuterol, maintained on IV Rocephin and Azithromycin, HOB, IS parameters w/ pending sputum cultures and urine antigens. Bld cx x 2 obtained in the ED. Will need to obtain oxygenation trial for discharge planning once appropriate. PT, OT, CM consultations given underlying co-morbidities which may complicate her recovery. (2) Hyperglycemia: Admission glucose 143, HgbA1c pending. (3) Hypertension: Maintain on home regimen lisinopril, lasix with hold parameters, PRN hydralazine. (4) Hyperlipidemia: Maintain on home statin regimen. (5) Single kidney Status s/p Prior R Nephrectomy: Admission BUN/Cr 14/0.51, trend, noted history of surgery on her L kidney as well. (6) Arthrogryposis: Usage of BL LE braces and several BL UE and BL LE surgeries in her youth, maintain on fall precautions, position changes frequently, PT and OT, CM consultations for discharge planning. (7) Morbid Obesity: Weight loss and lifestyle changes encouraged, nutrition consulted. (8) DVT Prophylaxis: SCDs, renally dosed lovenox. Code Visit Inpatient E AND M: 64137 Init Hosp L3 01/27/18 0352 <Electronically signed by Indu Herr > Date Indu Wiggins Carmenza Cosigner Signature: Date (if applicable) CC: Indu Herr; Momo Carvajal MD Signed EMERGENCY DEPARTMENT Observed: 01/27/2018 Status: F Source: SIDNEY SUMMARY 2:00 AM [facility] REPOSITORY [facility] Medical Records Department [address] [place] [address] Emergency Department Summary 01/26/182119 MR#: [id number] Acct: [id number] Name: ABRAN SAENZ Rep #: [id number] : 1940 77 From: Anna Quintanilla MD PCP: Momo Carvajal MD, Chi Status: REG ER - ER Visit Summary Date of Service: 01/26/18 Chief Complaint: Fever, shortness of breath History of Present Illness: The patient is a 77 F presenting with fever, shortness of breath, cough. She has been ill for the past 4-5 days. She has a productive cough. She denies chest pain. On arrival to the ED her pulse ox was low. She has a history of CHF, hypertension, hypercholesterolemia. She is not on home O2. Physical Examination: Vitals are stable. Temperature 100.4. Pulse ox 88-90% on room air. Alert no acute distress. HEENT exam is unremarkable. Neck is supple. Lungs are wheezing bilaterally. Heart is regular rate and rhythm. Abdomen is soft nontender nondistended. Skin is warm and dry. No focal neurologic deficit. Remainder of exam is unremarkable. Emergency Department Course and Treatment: Patient was given albuterol and Atrovent aerosols. She is given Tylenol. Chest x-ray shows mild congestion, cardiomegaly. EKG is sinus rate of 98 with no acute ischemic changes. CBC shows a white count 13.4. Glucose 143. Troponin is negative. BNP 118.1. Lactic acid is normal. Influenza negative. Blood cultures are sent. CTA chest shows no PE or dissection, pneumonia left lower lobe. She is given Rocephin and Zithromax IV. Discussed with Dr. Herr for admission. Disposition: Admission Impression: Community acquired pneumonia, hypoxia This note was generated with EasySize dictation software. It may contain incorrect words, spelling, and punctuation that were not noted in review of the chart prior to signing ED Disposition - Plan for ED Patient: Chief Complaint: Fever Referrals: Momo Carvajal Chi, MD [Primary Care Provider] - What to do if you have Problems For any increased pain, shortness of breath, bleeding, nausea or vomiting, chest pain, or any unexpected problems, contact your Primary Care Provider. Call [facility] ([phone]) or report to the closest Emergency Room. Call 911 if necessary. 01/27/18 0200 <Electronically signed by Anna Quintanilla MD> Date Anna Quintanilla MD Cosigner Signature (If Indicated): Date CC: Momo Carvajal MD CTA CHEST W/WO Observed: 01/26/2018 Status: F Source: CHRISTOPHER CONTRAST 11:19 PM [facility] REPOSITORY [facility] Imaging Services [address] [place] [address] CTA Chest W/WO Contrast MR#: [id number] Acct: [id number] Name: ABRAN SAENZ Rep #: [id number] : 1940 F 77 From: Bonnie Torres MD PCP: Momo Cavrajal MD, Chi Status: REG ER Study: CTA Chest W/WO Contrast Date of Exam: 01/26/18 Exam# [id number] Ordering Dr: Anna Quintanilla MD STUDY: CTA CHEST REASON FOR EXAM: Female, 77 years old. Cough and fever RADIATION DOSAGE (If Supplied By Facility): CTDIvol = ( 17.57 ) mGy, DLP = ( 628.57 ) mGycm TECHNIQUE: The examination was performed with the intravenous administration of 100ML ml of Isovue 370 contrast material. Post-processing of the angiographic images was performed, with multiplanar reformation and 3D reconstruction. Individualized dose optimization techniques were used for this CT. COMPARISON: None. FINDINGS: Normal enhancement of the main pulmonary artery and right and left pulmonary arteries. Normal enhancement of the bilateral peripheral pulmonary arteries. There is no demonstrated pulmonary embolism. Normal thoracic aorta and visualized great vessels. There is no demonstrated aortic dissection. Normal heart and pericardium. Normal mediastinum. Normal hilar regions. Normal visualized trachea and bronchi. There is partial consolidation of the left lung lower lobe suggesting pneumonia. Segmental atelectasis are noted in both lungs. Normal pleura. Normal chest wall structures. There are degenerative changes of thoracic spine. There is mild fatty infiltration of the liver.. CT/CTA Chest W/WO Contrast IMPRESSION: No demonstrated pulmonary embolism or arterial dissection. Pneumonia in the left lower lobe. Electronically Signed: Bonnie Torres MD at 1:35 EDT Tel , Service support , CC: Anna Quintanilla MD; Momo Carvajal MD Major Account Representative: Signed Observed: 01/26/2018 Status: F Source: SIDNEY CULTURE, BLOOD (WB) 10:15 PM [facility] REPOSITORY BC No growth in 5 days. Performed By: #### M200.1000 #### [facility] Laboratory [facility] [place], [address] CBC W/DIFF, AUTOMATED Collected: 01/26/2018 Status: F Source: SIDNEY 9:45 PM [facility] REPOSITORY TYPE CODE TESTS RESULT OUT OF RANGE REFERENCE UNITS LAB L100.1000 4.4-11.0 K/mm3 High WBC 13.6 LAB L100.1200 4.2-5.4 M/mm3 Low RBC 3.83 LAB L100.1300 12.0-15.0 g/dl Low HGB 11.4 LAB L100.1400 37-47 % Low HCT 36.4 LAB L100.1500 81-99 fL Normal MCV 95.0 LAB L100.1600 27.0-32.0 pg Normal MCH 29.8 LAB L100.1700 32-36 g/gl Low MCHC 31.3 LAB L100.1810 11.6-14.6 % High RDW CV 14.8 LAB L100.1820 35.1-43.9 fl High RDW SD 50.2 LAB L100.1900 150-450 K/mm3 Normal PLT 342 LAB L100.2000 6.2-12.0 fl Normal MPV 9.7 LAB L100.2100 47-70 % High NEUT% 78.8 LAB L100.2200 19-41 % Low LY% 11.2 LAB L100.2300 0-10 % Normal MONO% 8.5 LAB L100.2400 0-5 % Normal EO% 1.3 LAB L100.2500 0-1 % Normal BASO% 0.1 LAB L100.2550 0.0-0.9 % Normal IM GRAN % 0.100 Result Comment: IG% - Immature Granulocytes (promyelocytes, myelocytes and metamyelocytes) > 1% indicates that a LEFT SHIFT is Present. LAB L100.2620 2.0-7.7 X10 3/uL High Absolute Neut 10.7 LAB L100.2720 0.83-4.51 X10 3/ul Normal Absolute Lymph 1.52 Performed By: #### L100.0100 #### [facility] Laboratory [address] [place] [address]. [place], [place], [address] BASIC METABOLIC Collected: 01/26/2018 Status: F Source: SIDNEY PROFILE (BMP) 9:45 PM [facility] REPOSITORY Order Comment: 'TROP' Serial specimen #1, #2, #3, or #4: 1 TYPE CODE TESTS RESULT OUT OF RANGE REFERENCE UNITS LAB L501.0100 74-106 mg/dL High GLU 143 Result Comment: Fasting Glucose result greater than or equal to 126 mg/dL suggests DIABETES MELLITUS per A.D.A. criteria. Please note revised GLUCOSE reference range effective 2017. LAB L501.1000 7-18 mg/dL Normal BUN 14 LAB L501.1100 0.55-1.02 mg/dL Low CREAT,SERUM 0.51 Result Comment: The validity of the calculated GFR AND GFRAA in patients over 70 years has not been determined. Clinical correlation is essential. LAB L501.1110 >60 mL/min Normal EST GFR 124 Result Comment: Non- GFR Calc LAB L501.1115 >60 mL/min Normal EST GFR - AA 150 Result Comment: GFR Calc LAB L501.1255 ml/min Normal Estimated CRCL 66.13 LAB L501.1300 10-20 RATIO High BUN/CRE 27.3 LAB L501.2200 8.5-10 mg/dL Normal .1 CA 8.5 LAB L501.5300 136-14 mmol/L Normal 5 NA 138 LAB L501.5600 3.5-5. mmol/L Normal 1 K 4.1 LAB L501.5900 98-107 mmol/L Normal CL 100 LAB L501.6100 21.0-3 mmol/L Normal 2.0 CO2 29.0 LAB L501.6200 5-15 Normal GAP 9 Performed By: #### L500.2500, L501.4010 #### [facility] [address] [facility] [place], [place], [address] TROPONIN-I Collected: 01/26/2018 Status: F Source: SIDNEY 9:45 PM [facility] REPOSITORY Order Comment: 'TROP' Serial specimen #1, #2, #3, or #4: 1 TYPE CODE TESTS RESULT OUT OF RANGE REFERENCE UNITS LAB L501.4010 <0.06 ng/mL Normal < 0.02 TROPONIN-I Result Comment: TROPONIN-I EXPECTED VALUES <0.05 NEGATIVE 0.06 - 0.59 AT RISK OF VA > OR = 0.60 SUGGEST VA Performed By: #### L500.2500, L501.4010 #### [facility] [address] [facility] [place], [place], [id number] LACTIC ACID Collected: 01/26/2018 Status: F Source: SIDNEY 9:45 PM [facility] REPOSITORY Order Comment: Yes/No query for Sepsis Lactate Rule Y TYPE CODE TESTS RESULT OUT OF RANGE REFERENCE UNITS LAB L503.6005 0.4-2.0 mmol/L Normal LACTIC ACID 1.1 Performed By: #### L503.6005 #### [facility] [address] [place], [place], [address] BNP,B-TYPE NATRIURETIC Collected: 01/26/2018 Status: F Source: CHRISTOPHER PEPTIDE 9:45 PM [facility] REPOSITORY TYPE CODE TESTS RESULT OUT OF RANGE REFERENCE UNITS LAB L503.6620 0-100 pg/mL High B-TYPE 118.1 THOMAS PEP Performed By: #### L503.6620 #### [facility] [address] [place], [place], [id number] Observed: 01/26/2018 Status: F Source: CHRISTOPHER CULTURE, BLOOD (WB) 9:45 PM [facility] REPOSITORY BC No growth in 5 days. Performed By: #### M200.1000 #### [facility] [place], [place], [id number] Observed: 01/26/2018 Status: F Source: CHRISTOPHER INFLUENZA A+B (RAPID 9:24 PM [facility]) REPOSITORY Has pt arrived? Y FLU A/B Rapid Negative test results should be confirmed by culture. Order Rapid Viral Culture for Influenzae A+B ([id number]) if clinically indicated. Influenza Ag, Direct Presumptive NEGATIVE for Influenza A/B Antigen (See Note) Performed By: #### M101.0101 #### [facility] [address] [place], [place], [id number] Observed: 01/26/2018 Status: F Source: CHRISTOPHER RESPIRATORY PANEL 9:21 PM [facility] MOLECULAR REPOSITORY Has pt arrived? Y RP PANEL ADENOVIRUS Not Detected HUMAN METAPHNEUMO Not Detected INFLUENZA A Not Detected INFLUENZA A (SUBTYPE H1) Not Detected INFLUENZA A (SUBTYPE H3) Not Detected INFLUENZA B Not Detected PARAINFLUENZA 1 Not Detected PARAINFLUENZA 2 Not Detected PARAINFLUENZA 3 Not Detected PARAINFLUENZA 4 Not Detected RHINOVIRUS Not Detected RSV A Not Detected RSV B Not Detected NAAT METHOD Testing was performed using nucleic acid amplification Performed By: #### M100.638 #### [facility] [address] [place], [place], [id number] CHEST 1 VIEW Observed: 01/26/2018 Status: F Source: CHRISTOPHER (PORTABLE) 9:20 PM [facility] REPOSITORY [facility] Imaging Services [address] [place] [address] Chest 1 View (Portable) MR#: [id number] Acct: [id number] Name: ABRAN SAENZ Rep #: [id number] : 1940 F 77 From: Vincent Hidalgo PCP: Momo Carvajal MD, Chi Status: REG ER Study: Chest 1 View (Portable) Date of Exam: 01/26/18 Exam# [id number] Ordering Dr: Anna Quintanilla MD STUDY: X-RAY CHEST REASON FOR EXAM: Female, 77 years old. Fever, cough TECHNIQUE: Single AP portable view of the chest. COMPARISON: None. FINDINGS: The lungs are expanded. Pulmonary vascular congestion. There is no demonstrated pleural abnormality. There is mild cardiac enlargement. Normal mediastinum and fouzia. Normal visualized pulmonary arteries. Normal visualized aortic arch and descending thoracic aorta. Normal visualized thoracic spine. Normal visualized ribs, clavicles, and shoulders. There is no demonstrated abnormality of the visualized soft tissue structures of the upper abdomen. RAD/Chest 1 View (Portable) IMPRESSION: Mild pulmonary vascular congestion. Mild cardiomegaly. Electronically Signed: Vincent Hidalgo DO at 22:10 EDT , Service support , CC: Anna Quintanilla MD; Momo Carvajal MD Major Account Representative: Signed URINALYSIS, ROUTINE Collected: 01/26/2018 Status: F Source: CHRISTOPHER (DIPSTICK) 9:15 PM [facility] REPOSITORY Order Comment: Order Date: 01/26/18 Has pt arrived? Y How was Urine Obtained? CLEAN CATCH TYPE CODE TESTS RESULT OUT OF RANGE REFERENCE UNITS LAB L400.3000 Yellow COLOR Normal Straw LAB L400.3050 Clear Normal CLARITY Clear LAB L400.3200 Normal mg/dl Normal GLUCOSE, UR Normal LAB L400.3300 Negative mg/dL Normal BILIRUBIN URINE Negative LAB L400.3400 Negative mg/dl Normal KETONE UR Negative LAB L400.3465 1.002-1.030 Normal SP.GR. DIPSTX 1.005 LAB L400.3550 5.0 - 8.0 pH UR Normal 7.0 LAB L400.3600 Negative mg/dl High PROT 30 DIPSTX LAB L400.3700 Normal mg/dl Normal UROBILI Normal LAB L400.3750 Negative Normal NITRITE UR Negative LAB L400.3780 Negative /ul Normal OCCULT BLOOD-UR Negative LAB L400.3800 Negative /ul High LEUK ESTERASE 500 Performed By: #### L400.2011 #### [facility] [address] [facility] [place], [address] Observed: 01/26/2018 Status: F Source: SIDNEY LEGIONELLA ANTIGEN 9:15 PM [facility] URINE REPOSITORY Legionella, UR Legionella Antigen result interpretation: Negative Presumptive negative for Legionella pneumophila serogroup 1 antigen in urine, suggesting no recent or current infection. Legionella Ag, Urine Negative (See interpretation below) Performed By: #### M300.4500 #### [facility] [address] [facility] [place], [address] STREP Observed: 01/26/2018 Status: F Source: SIDNEY PNEUMONIAE ANTIG(UR,CSF) 9:15 PM [facility] REPOSITORY S pneumo Ag URINE INTERPRETATION Negative Urine Presumptive negative for pneumococcal pneumonia, suggesting no current or recent pneumococcal infection. Infection due to S pneumoniae cannot be ruled out since the antigen present in the sample may be below the detection limit of the test. Strep pneumo Test Negative URINE (See interpretation below) Performed By: #### M300.4600 #### [facility] [address] [facility] [place], [address] PROGRESS Observed: 01/26/2018 Status: COMPLETED Source: [place] 2:35 PM [facility] RE[facility] HNO ID: [id number] Author: Loida Seaman Service: (none) Author Type: Nurse Practitioner Type: Progress Notes Filed: 01/26/2018 2:38 PM Note Text: Patient presented to urgent care for shortness of breath and cough, on futher evaluation PO2 88-90%, with minimal air exchange noted. Advise due to oxygen level and condition, and comorbidities, patient go to for further treatment Patient[s present, will take to ER for treatment. CNOV Observed: 01/26/2018 Status: COMPLETED Source: [place] 2:30 PM [facility] REPOS[facility] Office Visit (WSTR) ABRAN SAENZ ([id number]) 1940 F Date Time Provider Department 01/26/18 2:30 PM LOIDA SEAMAN) WSTR During your visit today, we recorded the following information about you: Loida Seaman CNP 01/26/2018 2:38 PM Signed Patient presented to urgent care for shortness of breath and cough, on futher evaluation PO2 88-90%, with minimal air exchange noted. Advise due to oxygen level and condition, and comorbidities, patient go to for further treatment Patient[s present, will take to ER for treatment. Referring Provider: SELF [200] Allergies As of Date: 01/26/2018 Noted Allergy Reaction MORPHINE 11/07/2012 1 - Mental Status Change Date Reviewed: 02/25/2016 Reviewed by: Brandy Damian LPN - Fully Assessed Primary Visit Diagnosis:Low oxygen saturation [R79.81] Prescriptions as of 01/26/2018 Sig: ALBUTEROL SULFATE 2.5 MG/3 ML* Use 3 mL via nebulizer every * METHYLPREDNISOLONE 4 MG TABLE* Take as directed NUPERCAINAL RECTAL by RECTAL route. ATORVASTATIN 80 MG TABLET Take 80 mg by mouth once gurinder* POTASSIUM CHLORIDE ER 10 MEQ * Take 1 tablet by mouth daily * FUROSEMIDE 40 MG TABLET Take 1 tablet by mouth once d* LISINOPRIL 5 MG TABLET Take 1 tablet by mouth once d* ASPIRIN 81 MG TABLET Take 1 tablet by mouth once d* CALCIUM CARBONATE 600 MG (1,5* Take 2 tablets by mouth once * Problem List As Of Date 01/26/2018 Noted Resolved Anal or rectal pain [K62.89] INVALID FOR* Encounter for screening for malignant neoplasm *INVALID FOR* Very poor mobility [Z74.09] INVALID FOR* Encounter Status:Closed by LOIDA SEAMAN CNP on 01/26/18 ALLERGIES ALLERGIES DATE TYPE / CODE NAME / CODE REACTION SEVERITY SOURCE 11/03/2018 Drug No Known Unknown [facility] Allergy/416 Allergies/F0019 Hospital 296657(SNOM 59564(RXNORM) Repository ED CT) 11/07/2012 DRUG MORPHINE Mental [facility] INGREDI/419 [facility] 701907(SNOM Repository ED CT) ENCOUNTERS ENCOUNTERS ADMIT/DISCHARGE ACCOUNT ADMITTING ENCOUNTER LOCATION SOURCE NUMBER CLASS 11/26/2018 [id number] Ambulatory [facility] ing:POLAB3 Repository 11/14/2018 [id number] Ambulatory [facility] ing:OLS[facility] Repository C 11/07/2018 [id number] Ambulatory [facility] ing:OLS.[facility] Repository C 11/03/2018/11/03/20 [id number] Emergency [address] ing:ED Repository 10/26/2018 [id number] Mike Rushing Ambulatory BMSBuilding:B [place] [facility] Repository 10/26/2018 [id number] Kristan Mike Ambulatory BMSBuilding:B [place] [facility] Repository 10/26/2018 [id number] Mike Rushing Ambulatory BMSBuilding:B [place] [facility] Repository 10/26/2018 [id number] Kristan Mike Ambulatory BMSBuilding:B [place] [facility] Repository 10/26/2018/10/31/20 [id number] Ambulatory BMSBuilding:W [address] Repository 10/26/2018 [id number] Mike Rushing Ambulatory BMSBuilding:B [place] [facility] Repository 10/26/2018/10/31/20 [id number] Mike Rushing Inpatient [address] ing:PCURoom: Repository [id number]: 1 10/26/2018 [id number] Mike Rushing Ambulatory BMSBuilding:Tara White MS.[facility] Repository 10/26/2018/10/31/20 [id number] Ambulatory BMSBuilding:W [place] Repository 10/22/2018 [id number] Ambulatory [facility] ing:POLAB3 Repository 04/22/2018 [id number] Ambulatory [facility] ing:POLAB3 Repository 01/29/2018/02/03/20 [id number] Ambulatory BMSBuilding:W Adrian [address] [facility] Repository 01/29/2018 [id number] Tereletsky, Ambulatory BMSBuilding:Tara Winston MS.[facility] Repository 01/29/2018 [id number] Tereletsky, Ambulatory BMSBuilding:Tara Winston [facility] Repository 01/29/2018 [id number] Tereletsky, Ambulatory BMSBuilding:Tara Winston [facility] Repository 01/29/2018 [id number] Tereletsky, Ambulatory BMSBuilding:Tara Winston [facility] Repository 01/29/2018/02/03/20 [id number] Tereletsky, Inpatient [facility] [address] Encounter [facility] ing:PCURoom: Repository [id number]: 1 01/27/2018/01/29/20 [id number] White, Indu Inpatient Adrian Adrian 18 Encounter [facility] ing:ICURoom: Repository [id number]: [id number] 01/27/2018 [id number] White, Indu Ambulatory BMSBuilding:Tara White MS.[facility] Repository 01/27/2018 [id number] White, Ambulatory BMSBuilding:W Adrian [facility] Repository 01/27/2018 [id number] White, Indu Ambulatory BMSBuilding:Tara White [facility] Repository 01/27/2018/01/29/20 [id number] Ambulatory BMSBuilding:W Adrian [address] [facility] Repository 01/27/2018 [id number] Indu Herr Ambulatory BMSBuilding:B Christopher MS.BENJIP [facility] [place] Repository 01/26/2018/01/27/20 [id number] Ambulatory [address] Repository PAYERS PAYERS ENCOUNTER GUARANTOR PAYER SUBSCRIBER SOURCE 11/26/2018 SEBAS Swenson Primary ABRAN L Christopher [id number] Insurance:MEDICARE PERRYDOB: Community [place] PART [place] BPolicy [place]: [id number] [id number] Repository 74538Yxe: 330) Date:2018-11-26 [phone] (HP) 11/26/2018 Secondary ABRAN L Adrian Insurance:HUMANA PERRYDOB: [facility] [id number] Hospital Number: Repository [id number] Date:3509-10-34BY [address] [address]UQ: 11/26/2018 Tertiary NOT GIVENUNK Christopher Insurance:SELF PAY [facility] Number: Effective Repository Date:2018-11-26 11/14/2018 SEBAS Swenson Primary Insurance:SELF NOT GIVENUNK Adrian [id number] [facility] [place] Date:2018-11-14 Repository 13095Azh: (HP) 11/07/2018 SEBAS Swenson Primary Insurance:SELF NOT GIVENUNK Adrian [id number] [facility]: [place] Date:2018-11-07 Repository 53461Njo: (HP) 11/03/2018 SEBAS Swenson Primary ABRAN L Adrian [id number] Insurance:MEDICARE PERRYDOB: [facility] [place] PART A BPolicy Number: [id number], [place] [id number] Repository 60991Uvn: 330) Date:2018-11-03 [phone] (HP) 11/03/2018 Secondary ABRAN L Christopher Insurance:HUMANA PERRYDOB: [facility] [id number] Hospital Number: Repository [id number] Date:4525-22-27YJ [address] [place] [address]ZR: 11/03/2018 Tertiary NOT GIVENUNK Adrian Insurance:SELF PAY [facility] Rep[facility] Date:2018-11-03 10/26/2018 Sebas Swenson Primary ABRAN L Christopher [id number] Insurance:MEDICARE PERRYDOB: Community [place] PART A BPolicy Number: [id number] [place] [id number] Repository 09976Ftt: 330) Date:2018-10-25 [phone] () 10/26/2018 Secondary ABRAN L Christopher Insurance:HUMANA PERRYDOB: [facility] [id number] Hospital Number: Repository [id number] Date:5720-98-00CH [address] [place] [address]CB: 10/26/2018 Tertiary NOT GIVENUNK Christopher Insurance:SELF PAY [facility] Number: Effective Repository Date:2018-10-26 10/26/2018 SEBAS Swenson Primary ABRAN L Christopher [id number] Insurance:MEDICARE PERRYDOB: Community [place] PART A BPolicy Number: [id number][place] [id number] Repository 91790Ezw: (559) Date:2018-10-25 [phone] () 10/26/2018 Secondary ABRAN L Adrian Insurance:HUMANA PERRYDOB: [facility] [id number] Hospital Number: Repository [id number] Date:0088-83-73IB [address] [place] [address]XJ: 10/26/2018 Tertiary NOT GIVENUNK Adrian Insurance:SELF PAY [facility] Number: Effective Repository Date:2018-10-26 10/26/2018 SEBAS J Primary ABRAN L Adrian [id number] Insurance:MEDICARE PERRYDOB: Community [place] PART A BPolicy Number: [id number], [place] [id number] Repository 08829Szy: (330) Date:2018-10-25 [phone] () 10/26/2018 Secondary ABRAN L Christopher Insurance:HUMANA PERRYDOB: Community COMMERCIALPolicy [id number] Hospital Number: Repository [id number] Date:8664-23-07JV [address] [place] [address]AL: 10/26/2018 Tertiary NOT GIVENUNK Adrian Insurance:SELF PAY [facility] Number: Effective Repository Date:2018-10-26 10/26/2018 SEBAS J Primary ABRAN L Adrian [id number] Insurance:MEDICARE PERRYDOB: Community [place] PART A BPolicy Number: [id number], [place] [id number] Repository 61709Vrq: (330) Date:2018-10-25 [phone] () 10/26/2018 Secondary ABRAN L Christopher Insurance:HUMANA PERRYDOB: [facility] [id number] Hospital Number: Repository [id number] Date:1460-17-48DJ [address] [place] [address]QL: 10/26/2018 Tertiary NOT GIVENUNK Christopher Insurance:SELF PAY [facility] Number: Effective Repository Date:2018-10-26 10/26/2018 SEBAS J Primary ABRAN L Adrian [id number] Insurance:MEDICARE PERRYDOB: Community [place] PART A BPolicy Number: [id number], [place] [id number] Repository 86648Cnq: (330) Date:2018-10-25 [phone] () 10/26/2018 Secondary ABRAN L Christopher Insurance:HUMANA PERRYDOB: [facility] [id number] Hospital Number: Repository [id number] Date:5438-38-34CP [address] [address]GW: 10/26/2018 Tertiary NOT GIVENUNK Adrian Insurance:SELF PAY [facility] Number: Effective Repository Date:2018-10-26 10/26/2018 SEBAS Swenson Primary ABRAN L Christopher [id number] Insurance:MEDICARE PERRYDOB: Community [place] PART A BPolicy Number: [id number], [place] [id number] Repository 86564Mba: (191) Date:2018-10-25 [phone] () 10/26/2018 Secondary ABRAN L Adrian Insurance:HUMANA PERRYDOB: [facility] [id number] Hospital Number: Repository [id number] Date:0364-53-84CC [address] [place] [address]BM: 10/26/2018 Tertiary NOT GIVENUNK Christopher Insurance:SELF PAY [facility] Number: Effective Repository Date:2018-10-26 10/26/2018 SEBAS Swenson Primary ABRAN L Adrian [id number] Insurance:MEDICARE PERRYDOB: Community [place] PART A BPolicy Number: [id number], [place] [id number] Repository 58385Sjq: (791) Date:2018-10-25 [phone] () 10/26/2018 Secondary ABRAN L Christopher Insurance:HUMANA PERRYDOB: [facility] [id number] Hospital Number: Repository [id number] Date:1259-45-36WZ[address] [address]JT: 10/26/2018 Tertiary NOT GIVENUNK Adrian Insurance:SELF PAY [facility] Number: Effective Repository Date:2018-10-25 10/26/2018 Sebas Swenson Primary ABRAN L Adrian [id number] Insurance:MEDICARE PERRYDOB: Community [place] PART A olicy Number: [id number] [place], [place] [id number] Repository 35869Qhv: (863) Date:2018-10-25 [phone] () 10/26/2018 Secondary ABRAN L Christopher Insurance:HUMANA PERRYDOB: [facility] [id number] Hospital Number: Repository [id number] Date:8382-66-16JN [address] [place] [address]LS: 10/26/2018 Tertiary NOT GIVENUNK Christopher Insurance:SELF PAY [facility] Number: Effective Repository Date:2018-10-26 10/26/2018 SEBAS J Primary ABRAN L Christopher [id number] Insurance:MEDICARE PERRYDOB: Community [place] PART A BPolicy Number: [id number], [place] [id number] Repository 68452Fpd: (610) Date:2018-10-25 [phone] () 10/26/2018 Secondary ABRAN L Christopher Insurance:HUMANA PERRYDOB: Community COMMERCIALPolicy [id number] Hospital Number: Repository [id number] Date:8847-65-35MK[address] [address]PS: 10/26/2018 Tertiary NOT GIVENUNK Christopher Insurance:SELF PAY [facility] Number: Effective Repository Date:2018-10-26 10/22/2018 Sebas J Primary ABRAN L Adrian [id number] Insurance:MEDICARE PERRYDOB: Community [place] PART A BPolicy Number: [id number] [place], [place] [id number] Repository 83215Vgl: (164) Date:2018-10-22 [phone] () 10/22/2018 Secondary ABRAN L Christopher Insurance:HUMANA PERRYDOB: Community COMMERCIALPolicy [id number] Hospital Number: Repository [id number] Date:3833-76-54KP[address] [address]LN: 10/22/2018 Tertiary NOT GIVENUNK Christopher Insurance:SELF PAY [facility] Number: Effective Repository Date:2018-10-22 04/22/2018 Sebas J Primary ABRAN L Christopher [id number] Insurance:MEDICARE PERRYDOB: Community [place] PART A BPolicy Number: [id number] Point, [place] [id number] Repository 42145Ssj: 330) Date:2018-04-22 [phone] () 04/22/2018 Secondary ABRAN L Adrian Insurance:HUMANA PERRYDOB: Community COMMERCIALPolicy [id number] Hospital Number: Repository [id number] Date:8824-59-93XH [address] [place] [address]FW: 04/22/2018 Tertiary NOT GIVENUNK Christopher Insurance:SELF PAY [facility] Number: Effective Repository Date:2018-04-22 01/29/2018 Sebas J Primary ABRAN L Christopher [id number] Insurance:MEDICARE PERRYDOB: Community [place] PART A BPolicy Number: [id number] Point, [place] [id number] Repository 11211Mlq: (887) Date:2018-01-29 [phone] () 01/29/2018 Secondary ABRAN L Adrian Insurance:HUMANA PERRYDOB: [facility] [id number] Hospital Number: Repository [id number] Date:2183-17-58AI [address] [place] [address]BY: 01/29/2018 Tertiary NOT GIVENUNK Christopher Insurance:SELF PAY [facility] Number: Effective Repository Date:2018-01-29 01/29/2018 Sebas J Primary ABRAN L Christopher [id number] Insurance:MEDICARE PERRYDOB: Community [place] PART A BPolicy Number: [id number] [place], [place] [id number] Repository 06443Fhu: (556) Date:2018-01-29 [phone] () 01/29/2018 Secondary ABRAN L Adrian Insurance:HUMANA PERRYDOB: [facility] [id number] Hospital Number: Repository [id number] Date:1070-19-47SD [address] [address]NM: 01/29/2018 Tertiary NOT GIVENUNK Christopher Insurance:SELF PAY [facility] Number: Effective Repository Date:2018-01-29 01/29/2018 Sebas Swenson Primary ABRAN L Christopher [id number] Insurance:MEDICARE PERRYDOB: Community [place] PART A BPolicy Number: [id number] Point, [place] [id number] Repository 63492Csa: (330) Date:2018-01-29 [phone] () 01/29/2018 Secondary ABRAN L Christopher Insurance:HUMANA PERRYDOB: Community COMMERCIALPolicy [id number] Hospital Number: Repository [id number] Date:0071-91-68WO [address] [address]GU: 01/29/2018 Tertiary NOT GIVENUNK Christopher Insurance:SELF PAY [facility] Number: Effective Repository Date:2018-01-29 01/29/2018 Sebas Swenson Primary ABRAN L Christopher [id number] Insurance:MEDICARE PERRYDOB: Community [place] PART A BPolicy Number: [id number] Point, [place] [id number] Repository 54[address]Ppj: 330) Date:2018-01-29 [phone] () 01/29/2018 Secondary ABRAN L Adrian Insurance:HUMANA PERRYDOB: Community COMMERCIALPolicy [id number] Hospital Number: Repository [id number] Date:7185-63-33FP [address] [place] [address]TP: 01/29/2018 Tertiary NOT GIVENUNK Christopher Insurance:SELF PAY [facility] Number: Effective Repository Date:2018-01-29 01/29/2018 Sebas Swenson Primary ABRAN L Christopher [id number] Insurance:MEDICARE PERRYDOB: Community [place] PART A BPolicy Number: [id number] Point, [place] [id number] Repository 77647Wbf: (330) Date:2018-01-29 [phone] () 01/29/2018 Secondary ABRAN L Christopher Insurance:HUMANA PERRYDOB: Community COMMERCIALPolicy [id number] Hospital Number: Repository [id number] Date:2863-54-08LL [address] [place] [address]DA: 01/29/2018 Tertiary NOT GIVENUNK Christopher Insurance:SELF PAY [facility] Number: Effective Repository Date:2018-01-29 01/29/2018 Sebas Swenson Primary ABRAN L Adrian [id number] Insurance:MEDICARE PERRYDOB: Community [place] PART A BPolicy Number: [id number] Point, [place] [id number] Repository 08134Jeo: (720) Date:2018-01-29 [phone] () 01/29/2018 Secondary ABRAN L Christopher Insurance:HUMANA PERRYDOB: Community COMMERCIALPolicy [id number] Hospital Number: Repository [id number] Date:7688-50-05KB [address] [address]BU: 01/29/2018 Tertiary NOT GIVENUNK Adrian Insurance:SELF PAY [facility] Number: Effective Repository Date:2018-01-29 01/27/2018 Sebas Swenson Primary ABRAN L Adrian [id number] Insurance:MEDICARE PERRYDOB: Community [place] PART A BPolicy Number: [id number] Point, [place] [id number] Repository 03234Kcu: 330) Date:2018-01-26 [phone] () 01/27/2018 Secondary ABRAN L Adrian Insurance:HUMANA PERRYDOB: Community COMMERCIALPolicy [id number] Hospital Number: Repository [id number] Date:0775-16-20BE[address] [address]FG: 01/27/2018 Tertiary NOT GIVENUNK Christopher Insurance:SELF PAY [facility] Number: Effective Repository Date:2018-01-26 01/27/2018 Sebas J Primary ABRAN L Christopher [id number] Insurance:MEDICARE PERRYDOB: Community [place] PART A BPolicy Number: [id number] [place], [place] [id number] Repository 53626Bnn: 330) Date:2018-01-26 [phone] () 01/27/2018 Secondary ABRAN L Adrian Insurance:HUMANA PERRYDOB: Community COMMERCIALPolicy [id number] Hospital Number: Repository [id number] Date:8175-52-43CM [address] [place] [address]CR: 01/27/2018 Tertiary NOT GIVENUNK Christopher Insurance:SELF PAY [facility] Number: Effective Repository Date:2018-01-27 01/27/2018 Sebas Swenson Primary ABRAN L Adrian [id number] Insurance:MEDICARE PERRYDOB: Community [place] PART A BPolicy Number: [id number] [place], [place] [id number] Repository 61455Bxy: 330) Date:2018-01-26 [phone] () 01/27/2018 Secondary ABRAN L Christopher Insurance:HUMANA PERRYDOB: Community COMMERCIALPolicy [id number] Hospital Number: Repository [id number] Date:5572-28-86BG[address] [address]YE: 01/27/2018 Tertiary NOT GIVENUNK Christopher Insurance:SELF PAY [facility] Hospital Number: Effective Repository Date:2018-01-27 01/27/2018 Sebas J Primary ABRAN L Adrian [id number] Insurance:MEDICARE PERRYDOB: Community [place] PART A BPolicy Number: [id number] Point, [place] [id number] Repository 29736Cvy: 330) Date:2018-01-26 [phone] () 01/27/2018 Secondary ABRAN L Adrian Insurance:HUMANA PERRYDOB: Community COMMERCIALPolicy [id number] Hospital Number: Repository [id number] Date:9802-81-31RB [address] [place] [address]LS: 01/27/2018 Tertiary NOT GIVENUNK Christopher Insurance:SELF PAY [facility] Hospital Number: Effective Repository Date:2018-01-27 01/27/2018 Sebas Swenson Primary ABRAN L Christopher [id number] Insurance:MEDICARE PERRYDOB: Community [place] PART A BPolicy Number: [id number] [place], [place] [id number] Repository 41728Xde: (330) Date:2018-01-26 [phone] () 01/27/2018 Secondary ABRAN L Adrian Insurance:HUMANA PERRYDOB: Community COMMERCIALPolicy [id number] Hospital Number: Repository [id number] Date:0951-10-33EF [address] [place] [address]EI: 01/27/2018 Tertiary NOT GIVENUNK Adrian Insurance:SELF PAY [facility] Number: Effective Repository Date:2018-01-27 01/27/2018 Sebas Swenson Primary ABRAN L Adrian [id number] Insurance:MEDICARE PERRYDOB: Community [place] PART A BPolicy Number: [id number] [place], [place] [id number] Repository 57823Sxd: (330) Date:2018-01-26 [phone] () 01/27/2018 Secondary ABRAN L Christopher Insurance:HUMANA PERRYDOB: [facility] [id number] Hospital Number: Repository [id number] Date:8667-84-50RT[address] [address]BU: 01/27/2018 Tertiary NOT GIVENUNK Adrian Insurance:SELF PAY [facility] Number: Effective Repository Date:2018-01-27
== END ==
PROVIDERS: Family Provider Family Medicine Geriatric Medicine; PCP Family Medicine Geriatric Medicine; Visit Provider Family Medicine Geriatric Medicine
DX: I10 Essential (primary) hypertension (principal); E55.9 Vitamin D deficiency, unspecified
CPT/HCPCS: 36415; 80053; 82306; 84443; 85025

== ENCOUNTER 2018-10-25 23:07 | Inpatient (IN) | payer MEDICARE, OTHER, SELFPAY ==
[2018-10-25 23:10] VITALS: BP 109/90; PULSE 101; PULSE 96; RESP 16; RESP 28; TEMP 36.6; O2SAT 85; O2SAT 92; BMI 42.3
[2018-10-25 23:17] VITALS: BP 109/90; PULSE 93; RESP 20; TEMP 36.6
--- NOTE | 2018-10-25 23:22 | ED.RN ---
CALLED FOR EKG PER RN REQUEST, PULLED OLD EKGS FOR
--- NOTE | 2018-10-25 23:48 | RAD_ITS ---
STUDY: X-RAY CHEST REASON FOR EXAM: Female, 78 years old. Shortness of breath, cough, and congestion. TECHNIQUE: Single AP portable view of the chest. COMPARISON: 02/01/2018. 01/28/2018. FINDINGS: There is interstitial prominence in the lungs with denser infiltration in the perihilar regions of the mid and lower lung tran, suggesting CHF with pulmonary edema. Similar appearance was also present on the last previous study. The lungs are somewhat hyperexpanded which may represent COPD as well. There is no demonstrated pleural abnormality. The heart is enlarged. Normal mediastinum and fouzia. Normal visualized pulmonary arteries. Normal visualized aortic arch and descending thoracic aorta. There are no visualized acute osseous abnormalities. There is no demonstrated abnormality of the visualized soft tissue structures of the upper abdomen. RAD/Chest 1 View (Portable) IMPRESSION: Cardiomegaly with CHF and pulmonary edema. Suspect underlying COPD. Electronically Signed: Santino Mancuso MD at 1:16 EST , Service support ,
--- NOTE | 2018-10-25 23:49 | EKG12_ITS ---
Test Reason : SOB Blood Pressure : / mmHG Vent. Rate : 087 BPM Atrial Rate : 087 BPM P-R Int : 240 ms QRS Dur : 064 ms QT Int : 348 ms P-R-T Axes : 067 -06 055 degrees QTc Int : 418 ms Sinus rhythm with 1st degree A-V block Biatrial enlargement Pulmonary disease pattern Septal infarct , age undetermined Inferior infarct , age undetermined Abnormal ECG Confirmed by ALEKSANDAR PRYOR, BRETT ([id number]), editor news LEON DURAN ([id number]) on 10/29/2018 3:29:24 PM Referred By: TOM Confirmed By:BRETT HUERTAS MD
[2018-10-26] VITALS (18 sets, daily range): BP systolic 104–122; BP diastolic 53–85; PULSE 79–108; RESP 14–26; TEMP 36.6–37; O2SAT 92–98; BMI 39.8; BMI 39.9
[2018-10-26] MEDS: Albuterol 2.5 MG/3 ML VIAL.NEB. INHALATION ×2 (00:02→12:52)
[2018-10-26] MEDS: Ipratropium/Albuterol Sulfate 3 ML AMPUL.NEB INHALATION ×3 (00:02→19:03)
[2018-10-26 00:55] LABS: Absolute Lymphocyte Count 0.97 X10^3/ul (0.83-4.51); Absolute Neutrophil Count 8.3 X10^3/uL (2.0-7.7); Basophil# 0.02 X10^3/uL; Basophil% 0.2 % (0-1); Eosinophil# 0.03 X10^3/uL; Eosinophils% 0.3 % (0-5); Hematocrit 36.3 % (37-47); Hemoglobin 11.7 g/dl (12.0-15.0); Lymphocyte # 0.97 X10^3/ul (4.0); Lymphocyte % 9.8 % (19-41); Mean Corp Hgb Conc 32.2 g/gl (32-36); Mean Corpuscular Hgb 30.5 pg (27.0-32.0); Mean Corpuscular Volume 94.8 fL (81-99); Mean Platelet Vol. 9.9 fl (6.2-12.0); Monocyte# 0.56 X10^3/uL; Monocyte% 5.7 % (0-10); Neutrophil # 8.26 X10^3/uL (2.7-7.7); Neutrophil % 83.9 % (47-70); Platelet Count 245 K/mm3 (150-450); RBC Distribution Width CV 14.1 % (11.6-14.6); Red Blood Count 3.83 M/mm3 (4.2-5.4); White Blood Count 9.9 K/mm3 (4.4-11.0)
[2018-10-26 00:57] LABS: POSITIVE COUNT NO; POSITIVE DIFFERENTIAL NO; POSITIVE MORPHOLOGY NO
[2018-10-26 01:21] LABS: Anion Gap 9 (5-15); BUN 26 mg/dL (7-18); BUN/Creat Ratio 45.5 RATIO (10-20); Calcium,Total 8.2 mg/dL (8.5-10.1); Chloride 100 mmol/L (98-107); Creatinine, Serum 0.57 mg/dL (0.55-1.02); EST Glomerular Filtration Rate 109 mL/min (>60); Est Glom Filt Rate - Afr Amer 132 mL/min (>60); Estimated Creatinine Clearance 69.44 ml/min; Glucose 154 mg/dL (74-106); Potassium 4.7 mmol/L (3.5-5.1); Sodium Level 131 mmol/L (136-145)
[2018-10-26 01:27] LABS: BNP,B-Type NATRIURETIC PEPTIDE 76.8 pg/mL (0-100)
--- NOTE | 2018-10-26 01:28 | ED.VISSUMM ---
- ER Visit Summary Date of Service: 10/26/18 Chief Complaint: Shortness of breath History of Present Illness: The patient is a 78 F who presents with shortness of breath. It began yesterday. She reports congestion rhinorrhea productive cough and nausea. She became increasingly short of breath particularly tonight. She complains of increased fatigue. Her oxygen saturation free mass was 85% on room air. She is not on home oxygen. She does have a history of CHF. Her records also note pulmonary hypertension. No known history of asthma or COPD. Physical Examination: Afebrile pulse ox 92% on 4 L Moist mucous membranes Heart regular rate and rhythm Patient has tachypnea with diffuse rhonchorous breath sounds and inspiratory and expiratory wheezing Abdomen soft nontender Alert Test Results: EKG shows sinus rhythm at a rate of 87. Labs notable for hemoglobin 11.7, BUN 26. Troponin negative. BNP is pending. Chest x-ray shows cardiomegaly and pulmonary edema and findings consistent with acute CHF. Emergency Department Course and Treatment: Given patient's initial presentation with infectious symptoms pneumonia as well as CHF were considered. Lab work as above and initially lactic acid and blood cultures were also ordered. Given patient's imaging findings and laboratory work so far I do not believe this is due to an infectious process but rather acute exacerbation of CHF. She was given IV Lasix. Patient to be admitted. Treatment Plan: [] Disposition: Admit Impression: CHF exacerbation This note was generated with [employer] dictation software. It may contain incorrect words, spelling, and punctuation that were not noted in review of the chart prior to signing ED Disposition - Plan for ED Patient: Chief Complaint: Shortness of Breath Referrals: Momo Carvajal Chi, MD [Primary Care Provider] -
[2018-10-26] MEDS: Furosemide 40 MG/4 ML Vial IV ×3 (02:13→17:02)
--- NOTE | 2018-10-26 04:05 | PCM.HP.STD ---
Problem List (1) Acute congestive heart failure Status: Acute (2) Shortness of breath Status: Acute (3) Arthrogryposis Status: Chronic (4) HLD (hyperlipidemia) Status: Chronic Qualifiers: (5) HTN (hypertension) Status: Chronic Qualifiers: History of Present Illness Date of Admission: 10/26/18 Chief Complaint: SOB The patient is a 78 year old female w/ h/o chronic systolic heart failure, COPD, pulmonary HTN, and HTN is admitted for SOB. She has been feeling ill for the past few days. She thought she has a cold. Despite rest, she was getting more SOB. She also has been eating high sodium diet. Her SOB is associated with a productive cough. Nothing improved or worsened her cough. However, the intensity and frequency of her cough have increased. No fever or chill. Past Medical History Past Medical History (Chronic Problems): Chronic Problems HTN (hypertension) (Chronic) HLD (hyperlipidemia) (Chronic) Arthrogryposis (Chronic) Single kidney (Chronic) Morbid obesity with BMI of 40.0-44.9, adult (Chronic) Allergies No Known Allergies Allergy (Verified 01/26/18 19:43) Home Medications: Ambulatory Orders Medication Instructions Recorded Aspirin [Aspirin, Baby] 81 mg PO DAILY@0800 07/12/15 Atorvastatin Calcium [Lipitor] 80 mg PO QHS 07/12/15 Calcium Carb/Vitamin D 1 tab PO DAILY 07/12/15 [Caltrate-600 With Vit D Tab] Lisinopril [Zestril] 5 mg PO DAILY 07/12/15 Potassium Chloride [K-Dur] 20 meq PO BID 07/12/15 Dibucaine [Nupercainal] 56.7 gm RC 4X/DAY PRN PRN #1 09/28/15 oint...g. Furosemide 40 mg PO BID 10/26/18 Surgical History: - - R Nephrectomy, Minor Surgey on the L Kidney, notable BL UE and LE corrective surgeries in her youth. 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 Lives: Spouse/ Significant Other Smoking Status: Never smoker - *Family History Maternal History Items: Heart Disease Paternal History Items: Heart Disease Review of Systems Constitutional: Denies: Chills, Fever, Weight Change HEENT: Denies: Head Aches, Sinus Congestion, Sinus Drainage Cardiovascular: Denies: Chest Pain, Palpitations Respiratory: Reports: Cough, Shortness of breath at rest, Sputum production, Wheezing Gastrointestinal: Denies: Abdominal Pain, Nausea, Vomiting Genitourinary: Denies: Dysuria Musculoskeletal: Denies: Joint Pain, Joint Tenderness Skin: Denies: Rash, Wounds Neurological: Denies: Numbness, Tingling, Focal weakness Psychiatric: Denies: Anxiety, Depression, Homicidal Ideations, Suicidal Ideations Hematologic/ Lymphatic: Denies: Easy Bruising, Easy Bleeding VTE Information - Inpt Only VTE Present on Admission: No VTE Mechan Device Prophylaxis: SCD's VTE Pharm Prophylaxis ordered?: Yes Patient Problems: Active and Suspected Problems Acute congestive heart failure (Acute) - Physical Exam General: Alert, Oriented x3, Cooperative HEENT: Atraumatic, PERRLA, EOMI, Normocephalic Neck: Supple, No JVD, Negative Carotid Bruits Lungs: Normal air movement, Short of Breath, Wheezes Cardiovascular: Regular rate, No murmurs Abdomen: Bowel Sounds Present, Soft, Non Tender Extremities: No edema, Capillary Refill Less than 3 Seconds Skin: No rashes, No breakdown Musculoskeletal: No Tenderness to Palpation of Joints or Extremities Neurological: Cranial nerves II-XII grossly intact Psych/Mental Status: Normal Affect, Appropriate Vital Signs Temp Pulse Resp BP Pulse Ox 98.2 F 87 18 106/67 98 10/26/18 02:46 10/26/18 02:46 10/26/18 02:46 10/26/18 02:46 10/26/18 02:46 Oxygen Flow Rate (L/min) 2 Oxygen Delivery Method Nasal Cannula Weight: 86.5 kg Body Mass Index (BMI) 39.8 Laboratory Tests Past 24 Hrs 10/26/18 10/26/18 10/26/18 00:45 00:45 00:45 WBC 9.9 RBC 3.83 L Hgb 11.7 L Hct 36.3 L MCV 94.8 MCH 30.5 MCHC 32.2 RDW 14.1 RDW Differential 47.0 H Plt Count 245 MPV 9.9 Immature Gran % (Auto) 0.100 Neut % (Auto) 83.9 H Lymph % (Auto) 9.8 L [place] % (Auto) 5.7 Eos % (Auto) 0.3 Baso % (Auto) 0.2 Absolute Neuts (auto) 8.3 H Absolute Lymphs (auto) 0.97 Total Counted Not Reportable Sodium 131 L Potassium 4.7 Chloride 100 Carbon Dioxide 22.0 Anion Gap 9 BUN 26 H Creatinine 0.57 Estim Creat Clear Calc 69.44 Est GFR (MDRD) Af Amer 132 Est GFR (MDRD) Non-Af 109 BUN/Creatinine Ratio 45.5 H Glucose 154 H Lactic Acid Calcium 8.2 L Troponin I < 0.015 B-Natriuretic Peptide 76.8 10/26/18 01:15 WBC RBC Hgb Hct MCV MCH MCHC RDW RDW Differential Plt Count MPV Immature Gran % (Auto) Neut % (Auto) Lymph % (Auto) [place] % (Auto) Eos % (Auto) Baso % (Auto) Absolute Neuts (auto) Absolute Lymphs (auto) Total Counted Sodium Potassium Chloride Carbon Dioxide Anion Gap BUN Creatinine Estim Creat Clear Calc Est GFR (MDRD) Af Amer Est GFR (MDRD) Non-Af BUN/Creatinine Ratio Glucose Lactic Acid 1.0 Calcium Troponin I B-Natriuretic Peptide Assessment/Plan All Active Problems Hypoxia (Acute) Pneumonia (Acute) Sepsis (Acute) Shortness of breath (Acute) Acute congestive heart failure (Acute) 78 year old female w/ h/o chronic systolic heart failure, COPD, pulmonary HTN, and HTN is admitted for SOB. 1) Acute on chronic systolic heart failure: Most likely secondary to dietary indiscretion. Will start lasix 40mg IV BID. Will get ECHO. Serial trops. Low salt diet. 2) Hypervolemia hyponatremia: Will diuresis. Will consider workup if no improvement. Serial labs. 3) Chronic issues: COPD, HTN and pulmonary hypertension: Resume home meds. 4) Prophylaxis: SCD / lovenox Code Visit Inpatient E&M: 15502 Init Hosp L3
[2018-10-26 05:45] LABS: Prothrombin Time (Protime)PT. 12.9 SECONDS (11.7-14.9)
[2018-10-26 05:52] LABS: Absolute Neutrophil Count 5.5 X10^3/uL (2.0-7.7); Basophil# 0.01 X10^3/uL; Basophil% 0.2 % (0-1); Eosinophil# 0.01 X10^3/uL; Eosinophils% 0.2 % (0-5); Hemoglobin 10.3 g/dl (12.0-15.0); Lymphocyte % 9.3 % (19-41); Mean Corp Hgb Conc 31.2 g/gl (32-36); Mean Corpuscular Hgb 29.9 pg (27.0-32.0); Mean Corpuscular Volume 95.7 fL (81-99); Mean Platelet Vol. 10.1 fl (6.2-12.0); Monocyte% 6.2 % (0-10); Neutrophil # 5.45 X10^3/uL (2.7-7.7); Neutrophil % 83.9 % (47-70); Platelet Count 243 K/mm3 (150-450); RBC Distribution Width CV 14.2 % (11.6-14.6); RBC Distribution Width SD 47.5 fl (35.1-43.9); Red Blood Count 3.45 M/mm3 (4.2-5.4); White Blood Count 6.5 K/mm3 (4.4-11.0)
[2018-10-26 05:53] LABS: Differential Indicated SCAN CRITERIA MET; POSITIVE COUNT NO; POSITIVE DIFFERENTIAL YES; POSITIVE MORPHOLOGY NO
--- NOTE | 2018-10-26 05:55 | ECHOD_ITS ---
Reason For Study: CHF Procedure This was a 2D Doppler, Color Flow transthoracic echocardiogram. Exam performed portable in patient room. Left Ventricle Normal LV size. Left ventricular systolic function is normal. The estimated ejection fraction is 60 %. Stage 1 diastolic dysfunction. No regional wall motion abnormalities noted. Right Ventricle Normal RV size. Normal systolic function. Atria Normal left atrium. Normal right atrium. Mitral Valve Normal mitral valve. Tricuspid Valve Normal tricuspid valve. Mild (1+) tricuspid valve insufficiency. Pulmonary artery systolic pressure is 46 mmHg. Aortic Valve The aortic valve is not well visualized. Pulmonic Valve Normal pulmonic valve. Great Vessels Normal aortic root. The pulmonary artery is normal size. Normal inferior vena cava. Pericardium/Pleural Small pericardial effusion. MMode/2D Measurements & Calculations LVIDd: 3.6 cm IVSd: 0.93 cm Ao root diam: 2.6 cm LVIDs: 2.4 cm LVPWd: 0.97 cm RVDd: 2.7 cm FS: 34.3 % LAV(MOD-bp): 52.0 ml LVAd ap4: 16.5 cm2 SV(MOD-sp4): 26.7 ml LAV(MOD-bp) Indexed: 29.2 ml/m2 EDV(MOD-sp4): 35.1 ml LAV(MOD-sp2): 61.1 ml EDV(sp4-el): 36.2 ml LAV(MOD-sp4): 43.7 ml LVAs ap4: 7.5 cm2 ESV(MOD-sp4): 8.4 ml ESV(sp4-el): 8.6 ml EF(MOD-sp4): 76.0 % EF(sp4-el): 76.4 % SV(sp4-el): 27.7 ml LA A4 area: 18.7 cm2 LA dimension(2D): 2.5 cm RA A4 area: 11.7 cm2 Doppler Measurements & Calculations MV E max rahul: 143.4 cm/sec Lat Peak E' Rahul: 13.3 cm/sec MV V2 max: 196.3 cm/sec MV A max rahul: 172.6 cm/sec E/E' lat: 10.8 MV max P.4 mmHg MV E/A: 0.83 MV V2 mean: 129.2 cm/sec MV mean P.7 mmHg MV V2 VTI: 32.1 cm Ao V2 max: 182.8 cm/sec LV V1 max: 130.4 cm/sec PA V2 max: 94.5 cm/sec Ao max P.4 mmHg LV V1 max P.8 mmHg Ao V2 mean: 127.8 cm/sec Ao mean P.2 mmHg Ao V2 VTI: 30.6 cm TR max rahul: 325.4 cm/sec TR max P.4 mmHg Interpretation Summary Normal LV size. Left ventricular systolic function is normal. The estimated ejection fraction is 60 %. Stage 1 diastolic dysfunction. Mild (1+) tricuspid valve insufficiency. Ordering Physician: Mike Rushing Referring Physician: Momo Carvajal Chi Performed By: Alexandra Olivarez, NIDHI, RVT
[2018-10-26 06:05] LABS: Anion Gap 8 (5-15); BUN 25 mg/dL (7-18); BUN/Creat Ratio 45.3 RATIO (10-20); Calcium,Total 8.1 mg/dL (8.5-10.1); Chloride 101 mmol/L (98-107); Cholesterol 107 mg/dL (200); Creatinine, Serum 0.55 mg/dL (0.55-1.02); EST Glomerular Filtration Rate 114 mL/min (>60); Est Glom Filt Rate - Afr Amer 138 mL/min (>60); Estimated Creatinine Clearance 65.36 ml/min; Glucose 123 mg/dL (74-106); High Density Lipoprotein 50 mg/dL; Potassium 4.3 mmol/L (3.5-5.1); Sodium Level 136 mmol/L (136-145); Thyroid Stim Hormone (TSH) 1.11 uIU/mL (0.358-3.74); Triglycerides 65 mg/dL; Very Low Density Lipoprotein 13 mg/dL (5-40)
[2018-10-26 07:46] LABS: BNP,B-Type NATRIURETIC PEPTIDE 98.3 pg/mL (0-100)
[2018-10-26] MEDS: Aspirin 81 MG TAB.CHEW PO (09:25)
[2018-10-26] MEDS: Lisinopril 5 MG Tablet PO (09:25)
[2018-10-26] MEDS: Calcium Carb/Vitamin D 1 TABLET Tablet PO (09:25)
[2018-10-26] MEDS: Enoxaparin 40 MG/0.4 ML Syringe SC (09:26)
--- NOTE | 2018-10-26 14:40 | PCM.PN.HOSP ---
Patient Problems: Active and Suspected Problems Acute congestive heart failure (Acute) Subjective: Patient seen and examined. She complains of worsening SOB with wheezing and cough. Denies any fever, chills, leg swelling. Vitals/I&O's: Vital Signs Temp Pulse Resp BP Pulse Ox 98.3 F 82 24 H 113/57 L 95 10/26/18 08:45 10/26/18 12:53 10/26/18 12:53 10/26/18 08:45 10/26/18 08:45 Oxygen Flow Rate (L/min) 2 Oxygen Delivery Method Nasal Cannula Weight: 86.2 kg Body Mass Index (BMI) 39.8 Intake and Output for Last 24 Hours 10/24/18 10/25/18 10/26/18 23:59 23:59 23:59 Intake Total 240 / 240 Output Total 1450 / 1450 Balance -1210 / -1210 General: Alert, Oriented x3, Cooperative, - - on 2L oxygenobese, in mild respiratory distress, HEENT: Atraumatic, PERRLA, EOMI, Normocephalic Oral: Dry Mucosa Neck: Supple, No JVD, Negative Carotid Bruits Lungs: Clear to auscultation, Normal air movement Cardiovascular: Regular rate, Regular Rhythm, Normal S1, Normal S2, No murmurs Abdomen: Bowel Sounds Present, Soft, Non Tender, Non-Distended, No Hepato-splenomegaly Extremities: Edema - Bilateral pedal edema trace-+1 Skin: No rashes, No breakdown Musculoskeletal: No Tenderness to Palpation of Joints or Extremities Lymphatic: No Cervical, Supraclavicular, or Inguinal Adenopathy Neurological: Cranial nerves II-XII grossly intact, Neuro grossly intact Psych/Mental Status: Normal Affect, Appropriate Laboratory Results 10/26/18 00:45: WBC 9.9, RBC 3.83 L, Hgb 11.7 L, Hct 36.3 L, MCV 94.8, MCH 30.5, MCHC 32.2, RDW 14.1, RDW Differential 47.0 H, Plt Count 245, MPV 9.9, Immature Gran % (Auto) 0.100, Neut % (Auto) 83.9 H, Lymph % (Auto) 9.8 L, [place] % (Auto) 5.7, Eos % (Auto) 0.3, Baso % (Auto) 0.2, Absolute Neuts (auto) 8.3 H, Absolute Lymphs (auto) 0.97, Total Counted Not Reportable 10/26/18 00:45: Sodium 131 L, Potassium 4.7, Chloride 100, Carbon Dioxide 22.0, Anion Gap 9, BUN 26 H, Creatinine 0.57, Estim Creat Clear Calc 69.44, Est GFR (MDRD) Af Amer 132, Est GFR (MDRD) Non-Af 109, BUN/Creatinine Ratio 45.5 H, Glucose 154 H, Calcium 8.2 L, Troponin I < 0.015 10/26/18 00:45: B-Natriuretic Peptide 76.8 10/26/18 01:15: Lactic Acid 1.0 10/26/18 05:00: Sodium 136, Potassium 4.3, Chloride 101, Carbon Dioxide 27.0, Anion Gap 8, BUN 25 H, Creatinine 0.55, Estim Creat Clear Calc 65.36, Est GFR (MDRD) Af Amer 138, Est GFR (MDRD) Non-Af 114, BUN/Creatinine Ratio 45.3 H, Glucose 123 H, Calcium 8.1 L, Magnesium 2.0, Troponin I < 0.015, Triglycerides 65, Cholesterol 107, LDL Cholesterol 44, VLDL Cholesterol 13, HDL Cholesterol 50, TSH 1.11 10/26/18 05:00: B-Natriuretic Peptide 98.3 10/26/18 05:00: PT 12.9, INR 1.0 10/26/18 05:00: WBC 6.5, RBC 3.45 L, Hgb 10.3 L, Hct 33.0 L, MCV 95.7, MCH 29.9, MCHC 31.2 L, RDW 14.2, RDW Differential 47.5 H, Plt Count 243, MPV 10.1, Immature Gran % (Auto) 0.200, Neut % (Auto) 83.9 H, Lymph % (Auto) 9.3 L, [place] % (Auto) 6.2, Eos % (Auto) 0.2, Baso % (Auto) 0.2, Absolute Neuts (auto) 5.5, Absolute Lymphs (auto) 0.60 L, Total Counted Not Reportable 10/26/18 07:30: Troponin I < 0.015 10/26/18 10:46: Troponin I < 0.015 Current Medications Albuterol Sulfate (Ventolin Aerosols) 2.5 mg INHALATION Q2H PRN PRN PRN Reason: SOB &/OR WHEEZING Last Admin: 10/26/18 12:52 Dose: 2.5 mg Albuterol/Ipratropium (Duoneb) 3 ml INHALATION Q4HWA.RT [facility] Aspirin (Aspirin, Baby) 81 mg PO DAILY@0800 [facility] Last Admin: 10/26/18 09:25 Dose: 81 mg Atorvastatin Calcium (Lipitor) 80 mg PO QHS [facility] Calcium/Vitamin D (Os-Guillermo 500mg + D) 1 tablet PO DAILY [facility] Last Admin: 10/26/18 09:25 Dose: 1 tablet Dibucaine (Dibucaine) 1 applic TOPICAL 4X/DAY PRN PRN PRN Reason: anal pain Enoxaparin Sodium (Lovenox) 40 mg SC DAILY [facility] Last Admin: 10/26/18 09:26 Dose: 40 mg Furosemide (Lasix) 40 mg IV BIDLX [facility] Last Admin: 10/26/18 09:26 Dose: 40 mg Azithromycin 500 mg/ Dextrose 255 mls @ 250 mls/hr IV Q24 [facility] Lisinopril (Zestril) 5 mg PO DAILY [facility] Last Admin: 10/26/18 09:25 Dose: 5 mg Methylprednisolone (Solu-Medrol) 40 mg IV Q8 [facility] Last Admin: 10/26/18 14:05 Dose: 40 mg Potassium Chloride (K-Dur) 20 meq PO BIDCM [facility] Last Admin: 10/26/18 09:25 Dose: 20 meq Sodium Chloride () 5 - 15 ml IV UD PRN PRN Reason: SALINE FLUSH Medical Necessity - Tobacco Use Smoking Status: Never smoker Assessment/Plan All Active Problems Hypoxia (Acute) Pneumonia (Acute) Sepsis (Acute) Shortness of breath (Acute) Acute congestive heart failure (Acute) 78y/o female with PMHx of COPD/pulmonary hypertension, chronic diastolic CHF comes in with worsening SOB and has been managed as acute on chronic diastolic CHF and acute COPD exacerbation. 1. Acute hypoxic respiratory failure CHF and acute COPD exacerbation, not on oxygen at home, continue on home oxygen, renal for SPO2 more than 92% 2. Acute on chronic diastolic CHF, EF 75%, stage 1 diastolic dysfunction, on IV lasix 40mg BID, will continue with fluid restriction, daily weights 3. Acute COPD exacerbation, h/o COPD, seen Dr. Barrow before, not following with human resources operations manager, will start on IV solumedrol, breathing treatments, IV azithromycin, incentive spirometer 4. Hypertension, controlled, on Lisinopril, continue to monitor vitals 5. Hyperlipidemia, on statin 6. DVT PPx- Lovenox SC Code Visit Inpatient E&M: 99259 Subs Hosp L2
--- NOTE | 2018-10-26 14:45 | PN_ITS ---
Patient Problems: Active and Suspected Problems Acute congestive heart failure (Acute) Subjective: Patient seen and examined. She complains of worsening SOB with wheezing and cough. Denies any fever, chills, leg swelling. Vitals/I&O's: Vital Signs Temp Pulse Resp BP Pulse Ox 98.3 F 82 24 H 113/57 L 95 10/26/18 08:45 10/26/18 12:53 10/26/18 12:53 10/26/18 08:45 10/26/18 08:45 Oxygen Flow Rate (L/min) 2 Oxygen Delivery Method Nasal Cannula Weight: 86.2 kg Body Mass Index (BMI) 39.8 Intake and Output for Last 24 Hours 10/24/18 10/25/18 10/26/18 23:59 23:59 23:59 Intake Total 240 / 240 Output Total 1450 / 1450 Balance -1210 / -1210 General: Alert, Oriented x3, Cooperative, - - on 2L oxygenobese, in mild respiratory distress, HEENT: Atraumatic, PERRLA, EOMI, Normocephalic Oral: Dry Mucosa Neck: Supple, No JVD, Negative Carotid Bruits Lungs: Clear to auscultation, Normal air movement Cardiovascular: Regular rate, Regular Rhythm, Normal S1, Normal S2, No murmurs Abdomen: Bowel Sounds Present, Soft, Non Tender, Non-Distended, No Hepato- splenomegaly Extremities: Edema - Bilateral pedal edema trace-+1 Skin: No rashes, No breakdown Musculoskeletal: No Tenderness to Palpation of Joints or Extremities Lymphatic: No Cervical, Supraclavicular, or Inguinal Adenopathy Neurological: Cranial nerves II-XII grossly intact, Neuro grossly intact Psych/Mental Status: Normal Affect, Appropriate Laboratory Results 10/26/18 00:45: WBC 9.9, RBC 3.83 L, Hgb 11.7 L, Hct 36.3 L, MCV 94.8, MCH 30.5, MCHC 32.2, RDW 14.1, RDW Differential 47.0 H, Plt Count 245, MPV 9.9, Immature Gran % (Auto) 0.100, Neut % (Auto) 83.9 H, Lymph % (Auto) 9.8 L, [place] % (Auto) 5.7, Eos % (Auto) 0.3, Baso % (Auto) 0.2, Absolute Neuts (auto) 8.3 H, Absolute Lymphs (auto) 0.97, Total Counted Not Reportable 10/26/18 00:45: Sodium 131 L, Potassium 4.7, Chloride 100, Carbon Dioxide 22.0, Anion Gap 9, BUN 26 H, Creatinine 0.57, Estim Creat Clear Calc 69.44, Est GFR (MDRD) Af Amer 132, Est GFR (MDRD) Non-Af 109, BUN/Creatinine Ratio 45.5 H, Glucose 154 H, Calcium 8.2 L, Troponin I < 0.015 10/26/18 00:45: B-Natriuretic Peptide 76.8 10/26/18 01:15: Lactic Acid 1.0 10/26/18 05:00: Sodium 136, Potassium 4.3, Chloride 101, Carbon Dioxide 27.0, Anion Gap 8, BUN 25 H, Creatinine 0.55, Estim Creat Clear Calc 65.36, Est GFR (MDRD) Af Amer 138, Est GFR (MDRD) Non-Af 114, BUN/Creatinine Ratio 45.3 H, Glucose 123 H, Calcium 8.1 L, Magnesium 2.0, Troponin I < 0.015, Triglycerides 65, Cholesterol 107, LDL Cholesterol 44, VLDL Cholesterol 13, HDL Cholesterol 50, TSH 1.11 10/26/18 05:00: B-Natriuretic Peptide 98.3 10/26/18 05:00: PT 12.9, INR 1.0 10/26/18 05:00: WBC 6.5, RBC 3.45 L, Hgb 10.3 L, Hct 33.0 L, MCV 95.7, MCH 29.9, MCHC 31.2 L, RDW 14.2, RDW Differential 47.5 H, Plt Count 243, MPV 10.1, Immature Gran % (Auto) 0.200, Neut % (Auto) 83.9 H, Lymph % (Auto) 9.3 L, [place] % (Auto) 6.2, Eos % (Auto) 0.2, Baso % (Auto) 0.2, Absolute Neuts (auto) 5.5, Absolute Lymphs (auto) 0.60 L, Total Counted Not Reportable 10/26/18 07:30: Troponin I < 0.015 10/26/18 10:46: Troponin I < 0.015 Current Medications Albuterol Sulfate (Ventolin Aerosols) 2.5 mg INHALATION Q2H PRN PRN PRN Reason: SOB &/OR WHEEZING Last Admin: 10/26/18 12:52 Dose: 2.5 mg Albuterol/Ipratropium (Duoneb) 3 ml INHALATION Q4HWA.RT [facility] Aspirin (Aspirin, Baby) 81 mg PO DAILY@0800 [facility] Last Admin: 10/26/18 09:25 Dose: 81 mg Atorvastatin Calcium (Lipitor) 80 mg PO QHS [facility] Calcium/Vitamin D (Os-Guillermo 500mg + D) 1 tablet PO DAILY [facility] Last Admin: 10/26/18 09:25 Dose: 1 tablet Dibucaine (Dibucaine) 1 applic TOPICAL 4X/DAY PRN PRN PRN Reason: anal pain Enoxaparin Sodium (Lovenox) 40 mg SC DAILY [facility] Last Admin: 10/26/18 09:26 Dose: 40 mg Furosemide (Lasix) 40 mg IV BIDLX [facility] Last Admin: 10/26/18 09:26 Dose: 40 mg Azithromycin 500 mg/ Dextrose 255 mls @ 250 mls/hr IV Q24 [facility] Lisinopril (Zestril) 5 mg PO DAILY [facility] Last Admin: 10/26/18 09:25 Dose: 5 mg Methylprednisolone (Solu-Medrol) 40 mg IV Q8 [facility] Last Admin: 10/26/18 14:05 Dose: 40 mg Potassium Chloride (K-Dur) 20 meq PO BIDCM [facility] Last Admin: 10/26/18 09:25 Dose: 20 meq Sodium Chloride () 5 - 15 ml IV UD PRN PRN Reason: SALINE FLUSH Medical Necessity - Tobacco Use Smoking Status: Never smoker Assessment/Plan All Active Problems Hypoxia (Acute) Pneumonia (Acute) Sepsis (Acute) Shortness of breath (Acute) Acute congestive heart failure (Acute) 78y/o female with PMHx of COPD/pulmonary hypertension, chronic diastolic CHF comes in with worsening SOB and has been managed as acute on chronic diastolic CHF and acute COPD exacerbation. 1. Acute hypoxic respiratory failure CHF and acute COPD exacerbation, not on oxygen at home, continue on home oxygen, renal for SPO2 more than 92% 2. Acute on chronic diastolic CHF, EF 75%, stage 1 diastolic dysfunction, on IV lasix 40mg BID, will continue with fluid restriction, daily weights 3. Acute COPD exacerbation, h/o COPD, seen Dr. Barrow before, not following with clothing cutter, will start on IV solumedrol, breathing treatments, IV azithromycin, incentive spirometer 4. Hypertension, controlled, on Lisinopril, continue to monitor vitals 5. Hyperlipidemia, on statin 6. DVT PPx- Lovenox SC Code Visit Inpatient E&M: 45968 Subs Hosp L2
[2018-10-26] MEDS: 0.9% NaCl Peripheral Flush Adult/Peds IV ×2 (17:02→21:15)
[2018-10-26] MEDS: 0.9% NaCl IVPB Med Flush (250 mL) 15 ML IV (17:14)
[2018-10-26] MEDS: Atorvastatin Calcium 80 MG Tablet PO (21:15)
[2018-10-27] VITALS (15 sets, daily range): BP systolic 121–142; BP diastolic 54–73; PULSE 88–110; RESP 16–28; TEMP 36.2–37.2; O2SAT 86–97
[2018-10-27] MEDS: 0.9% NaCl Peripheral Flush Adult/Peds IV ×3 (05:18→16:01)
[2018-10-27 05:45] LABS: Absolute Lymphocyte Count 0.49 X10^3/ul (0.83-4.51); Absolute Neutrophil Count 5.8 X10^3/uL (2.0-7.7); Basophil# 0.01 X10^3/uL; Basophil% 0.2 % (0-1); Hematocrit 35.1 % (37-47); Hemoglobin 11.4 g/dl (12.0-15.0); Lymphocyte # 0.49 X10^3/ul (4.0); Lymphocyte % 7.6 % (19-41); Mean Corp Hgb Conc 32.5 g/gl (32-36); Mean Corpuscular Volume 92.4 fL (81-99); Mean Platelet Vol. 10.3 fl (6.2-12.0); Monocyte# 0.16 X10^3/uL; Monocyte% 2.5 % (0-10); Neutrophil # 5.76 X10^3/uL (2.7-7.7); Neutrophil % 89.4 % (47-70); Platelet Count 224 K/mm3 (150-450); RBC Distribution Width CV 13.9 % (11.6-14.6); RBC Distribution Width SD 46.6 fl (35.1-43.9); White Blood Count 6.4 K/mm3 (4.4-11.0)
[2018-10-27 05:46] LABS: Anion Gap 9 (5-15); BUN 22 mg/dL (7-18); BUN/Creat Ratio 43.9 RATIO (10-20); Calcium,Total 8.3 mg/dL (8.5-10.1); Chloride 99 mmol/L (98-107); EST Glomerular Filtration Rate 127 mL/min (>60); Est Glom Filt Rate - Afr Amer 154 mL/min (>60); Estimated Creatinine Clearance 64.52 ml/min; Glucose 152 mg/dL (74-106); POSITIVE COUNT YES; POSITIVE DIFFERENTIAL YES; POSITIVE MORPHOLOGY NO; Potassium 4.9 mmol/L (3.5-5.1); Sodium Level 134 mmol/L (136-145)
[2018-10-27 05:47] LABS: Differential Indicated SCAN CRITERIA MET
[2018-10-27 06:29] LABS: Differential Comment SCAN; Platelet Estimate ADEQUATE (ADEQ); Platelet Morphology LARGE
[2018-10-27] MEDS: Ipratropium/Albuterol Sulfate 3 ML AMPUL.NEB INHALATION ×4 (06:58→22:49)
[2018-10-27] MEDS: Calcium Carb/Vitamin D 1 TABLET Tablet PO (09:26)
[2018-10-27] MEDS: Furosemide 40 MG/4 ML Vial IV ×2 (09:26→16:01)
[2018-10-27] MEDS: Aspirin 81 MG TAB.CHEW PO (09:27)
[2018-10-27] MEDS: Lisinopril 5 MG Tablet PO (09:27)
--- NOTE | 2018-10-27 09:43 | CASEMGMT ---
Assessment- 10-27-18 Living situation- Patient lives with her in a 1 story home with no entry steps. PCP: Dr Carvajal Specialists: None Pharmacy: [facility] DME: Raised toilet seat and wheelchair ADL's/IADL's: Her helps her with most activities including bathing, dressing and transportation. She manages her own medications. Past SNF/rehab: none Past HH: none LW: yes, but no on file POA: Yes, but not on file. Her , Sebas is her POA Plan: Patient said he helps her. She plans on going home and said she absolutely refuses SNF. CM to follow Korin MCCRACKEN MSW
--- NOTE | 2018-10-27 12:07 | PN_ITS ---
Patient Problems: Active and Suspected Problems Acute congestive heart failure (Acute) Subjective: Patient is still short of breath. Patient was not on oxygen at home before admission. History of CHF and COPD. Vitals/I&O's: Vital Signs Temp Pulse Resp BP Pulse Ox 98.9 F 96 22 H 133/69 H 95 10/27/18 08:50 10/27/18 11:02 10/27/18 10:56 10/27/18 08:50 10/27/18 08:50 Oxygen Flow Rate (L/min) 1.5 Oxygen Delivery Method Nasal Cannula Weight: 188 lb 4.396 oz Body Mass Index (BMI) 39.8 Intake and Output for Last 24 Hours 10/25/18 10/26/18 10/27/18 23:59 23:59 23:59 Intake Total 500 / 500 842 / 842 Output Total 1770 / 1770 1400 / 1400 Balance -1270 / -1270 -558 / -558 General: Alert, Oriented x3, Cooperative HEENT: Atraumatic, PERRLA, EOMI, Normocephalic Neck: Supple, No JVD, Negative Carotid Bruits Lungs: Diminished, Rhonchi, Short of Breath, Wheezes Cardiovascular: Regular rate, Regular Rhythm, Normal S1, Normal S2, No murmurs Abdomen: Bowel Sounds Present, Soft, Non Tender, Non-Distended Extremities: Capillary Refill Less than 3 Seconds, Edema Skin: No rashes, No breakdown Musculoskeletal: No Tenderness to Palpation of Joints or Extremities, Arthritic Changes Neurological: Cranial nerves II-XII grossly intact Psych/Mental Status: Normal Affect, Appropriate Microbiology Past 72 Hours 10/26/18 13:30 Mucosa - Nasopharyngeal Respiratory Panel (PCR) - Final Influenzae B Human Carpio 10/26/18 13:30 Mucosa - Nasopharyngeal Influenza Types A,B Direct FA (THERESA) - Final Laboratory Results 10/27/18 05:15: WBC 6.4, RBC 3.80 L, Hgb 11.4 L, Hct 35.1 L, MCV 92.4, MCH 30.0, MCHC 32.5, RDW 13.9, RDW Differential 46.6 H, Plt Count 224, MPV 10.3, Immature Gran % (Auto) 0.300, Neut % (Auto) 89.4 H, Lymph % (Auto) 7.6 L, [place] % (Auto) 2.5, Eos % (Auto) 0.0, Baso % (Auto) 0.2, Absolute Neuts (auto) 5.8, Absolute Lymphs (auto) 0.49 L, Total Counted Not Reportable, Differential Comment SCAN, Platelet Estimate ADEQUATE, Plt Morphology Comment LARGE 10/27/18 05:15: Sodium 134 L, Potassium 4.9, Chloride 99, Carbon Dioxide 26.0, Anion Gap 9, BUN 22 H, Creatinine 0.50 L, Estim Creat Clear Calc 64.52, Est GFR (MDRD) Af Amer 154, Est GFR (MDRD) Non-Af 127, BUN/Creatinine Ratio 43.9 H, Glucose 152 H, Calcium 8.3 L Current Medications Albuterol Sulfate (Ventolin Aerosols) 2.5 mg INHALATION Q2H PRN PRN PRN Reason: SOB &/OR WHEEZING Last Admin: 10/26/18 12:52 Dose: 2.5 mg Albuterol/Ipratropium (Duoneb) 3 ml INHALATION Q4HWA.RT [facility] Last Admin: 10/27/18 10:56 Dose: 3 ml Aspirin (Aspirin, Baby) 81 mg PO DAILY@0800 [facility] Last Admin: 10/27/18 09:27 Dose: 81 mg Atorvastatin Calcium (Lipitor) 80 mg PO QHS [facility] Last Admin: 10/26/18 21:15 Dose: 80 mg Azithromycin (Zithromax) 500 mg PO Q24 [facility] Stop: 10/28/18 10:01 Calcium/Vitamin D (Os-Guillermo 500mg + D) 1 tablet PO DAILY [facility] Last Admin: 10/27/18 09:26 Dose: 1 tablet Dibucaine (Dibucaine) 1 applic TOPICAL 4X/DAY PRN PRN PRN Reason: anal pain Enoxaparin Sodium (Lovenox) 40 mg SC DAILY [facility] Last Admin: 10/27/18 09:22 Dose: Not Given Furosemide (Lasix) 40 mg IV BIDLX [facility] Last Admin: 10/27/18 09:26 Dose: 40 mg Sodium Chloride () 250 mls @ 15 mls/hr IV .[id number] PRN PRN Reason: SALINE FLUSH Last Admin: 10/26/18 17:14 Dose: 15 mls/hr Lisinopril (Zestril) 5 mg PO DAILY [facility] Last Admin: 10/27/18 09:27 Dose: 5 mg Methylprednisolone (Solu-Medrol) 40 mg IV Q8 [facility] Last Admin: 10/27/18 05:18 Dose: 40 mg Potassium Chloride (K-Dur) 20 meq PO BIDCM [facility] Last Admin: 10/27/18 09:27 Dose: 20 meq Sodium Chloride () 5 - 15 ml IV UD PRN PRN Reason: SALINE FLUSH Last Admin: 10/27/18 09:26 Dose: 10 ml Medical Necessity - Tobacco Use Smoking Status: Never smoker Assessment/Plan All Active Problems Hypoxia (Acute) Pneumonia (Acute) Sepsis (Acute) Shortness of breath (Acute) Acute congestive heart failure (Acute) This is a 78y/o female with PMHx of COPD/pulmonary hypertension, chronic diastolic CHF comes in with worsening SOB and has been managed as acute on chronic diastolic CHF and acute COPD exacerbation. Patient has symptoms of shortness of breath, sore throat, postnasal drip and URI symptoms 1. Acute hypoxic respiratory failure CHF and acute COPD exacerbation, not on oxygen at home, continue on home oxygen, SPO2 more than 92% 2. Acute on chronic diastolic CHF: Echo in January 2018 reported as EF 75%, stage 1 diastolic dysfunction, on IV lasix 40mg BID, on fluid restriction, daily weights. Consider beta-malina when patient is more euvolemic. Patient also has moderate pulmonary hypertension with RVSP 54 mmHg. Normal tricuspid valve. Trivial TR. Normal left atrium. Right atrium mildly enlarged. 3. Acute COPD exacerbation, probably secondary to influenza B and human Carpio viral bronchitis: Patient has seen Dr. Barrow before, not following with paperhanger apprentice, on IV solumedrol, breathing treatments, oral azithromycin, incentive spirometer. Started on Tamiflu as patient still comes in 48 hours window. 4. Hypertension, controlled, on Lisinopril, continue to monitor vitals 5. Hyperlipidemia, on statin 6. DVT PPx- Lovenox SC Active Medications Albuterol Sulfate (Ventolin Aerosols) 2.5 mg INHALATION Q2H PRN PRN PRN Reason: SOB &/OR WHEEZING Last Admin: 10/26/18 12:52 Dose: 2.5 mg Albuterol/Ipratropium (Duoneb) 3 ml INHALATION Q4HWA.RT [facility] Last Admin: 10/27/18 15:10 Dose: Not Given Aspirin (Aspirin, Baby) 81 mg PO DAILY@0800 [facility] Last Admin: 10/27/18 09:27 Dose: 81 mg Atorvastatin Calcium (Lipitor) 80 mg PO QHS [facility] Last Admin: 10/26/18 21:15 Dose: 80 mg Azithromycin (Zithromax) 500 mg PO Q24 [facility] Stop: 10/28/18 10:01 Calcium/Vitamin D (Os-Guillermo 500mg + D) 1 tablet PO DAILY [facility] Last Admin: 10/27/18 09:26 Dose: 1 tablet Dibucaine (Dibucaine) 1 applic TOPICAL 4X/DAY PRN PRN PRN Reason: anal pain Enoxaparin Sodium (Lovenox) 40 mg SC DAILY [facility] Last Admin: 10/27/18 09:22 Dose: Not Given Furosemide (Lasix) 40 mg IV BIDLX [facility] Last Admin: 10/27/18 16:01 Dose: 40 mg Sodium Chloride () 250 mls @ 15 mls/hr IV .[id number] PRN PRN Reason: SALINE FLUSH Last Admin: 10/26/18 17:14 Dose: 15 mls/hr Lisinopril (Zestril) 5 mg PO DAILY [facility] Last Admin: 10/27/18 09:27 Dose: 5 mg Methylprednisolone (Solu-Medrol) 40 mg IV Q8 [facility] Last Admin: 10/27/18 13:38 Dose: 40 mg Oseltamivir Phosphate (Tamiflu) 30 mg PO BID [facility] Stop: 10/31/18 22:01 Last Admin: 10/27/18 13:38 Dose: 30 mg Potassium Chloride (K-Dur) 20 meq PO BIDCM [facility] Last Admin: 10/27/18 16:01 Dose: 20 meq Sodium Chloride () 5 - 15 ml IV UD PRN PRN Reason: SALINE FLUSH Last Admin: 10/27/18 16:01 Dose: 10 ml Code Visit Inpatient E&M: 54147 Subs Hosp L3
[2018-10-27] MEDS: Oseltamivir Phosphate 30 MG Capsule PO ×2 (13:38→22:04)
[2018-10-27] MEDS: Atorvastatin Calcium 80 MG Tablet PO (22:04)
[2018-10-28] VITALS (16 sets, daily range): BP systolic 110–126; BP diastolic 52–69; PULSE 81–111; RESP 16–20; TEMP 36.1–37.2; O2SAT 91–97
[2018-10-28] MEDS: guaiFENesin 10 ML UDC (200MG/10ML) PO ×2 (05:44→23:20)
[2018-10-28] MEDS: Ipratropium/Albuterol Sulfate 3 ML AMPUL.NEB INHALATION ×4 (07:02→19:10)
[2018-10-28] MEDS: 0.9% NaCl Peripheral Flush Adult/Peds IV ×2 (09:54→13:54)
[2018-10-28] MEDS: Furosemide 40 MG/4 ML Vial IV ×3 (09:54→21:06)
[2018-10-28] MEDS: Lisinopril 5 MG Tablet PO (09:55)
[2018-10-28] MEDS: Oseltamivir Phosphate 30 MG Capsule PO ×2 (09:55→21:06)
[2018-10-28] MEDS: Azithromycin 250 MG Tablet 500 MG PO (09:55)
[2018-10-28] MEDS: Calcium Carb/Vitamin D 1 TABLET Tablet PO (09:55)
[2018-10-28] MEDS: Aspirin 81 MG TAB.CHEW PO (09:55)
--- NOTE | 2018-10-28 14:06 | RAD_ITS ---
STUDY: X-RAY CHEST REASON FOR EXAM: Female, 78 years old. Short of breath TECHNIQUE: Frontal and lateral views of the chest. COMPARISON: 10/26/2018. FINDINGS: Moderate lung volumes. There is diffuse hazy density and prominence of the bronchovascular markings in both lungs, most consistent with congestive failure and pulmonary edema.. Findings similar to prior study. No gross effusions are seen. There is moderate cardiac enlargement. Normal mediastinum and fouzia. Normal visualized pulmonary arteries. Normal visualized aortic arch and descending thoracic aorta. There are diffuse degenerative changes of the visualized thoracic spine. Normal visualized ribs, clavicles, and shoulders. There is no demonstrated abnormality of the visualized soft tissue structures of the upper abdomen. RAD/Chest PA and Lateral IMPRESSION: Continued congestion and pulmonary edema with cardiomegaly. Electronically Signed: Jonny Andrade MD at 17:29 EST , Service support ,
--- NOTE | 2018-10-28 15:58 | PCM.PN.HOSP ---
Patient Problems: Active and Suspected Problems Acute congestive heart failure (Acute) Subjective: Patient shortness of breath is better but is still wheezy. And reviewed. Chest x-ray is not of good quality and shows interstitial prominence and infiltrates in perihilar region suggestive of interstitial edema. Lungs are hyperexpanded suggestive of COPD. Vitals/I&O's: Vital Signs Temp Pulse Resp BP Pulse Ox 97 F L 100 16 116/68 94 10/28/18 10:00 10/28/18 15:14 10/28/18 15:14 10/28/18 10:00 10/28/18 10:00 Oxygen Flow Rate (L/min) 1.5 Oxygen Delivery Method Nasal Cannula Weight: 195 lb 1.745 oz Body Mass Index (BMI) 39.8 Intake and Output for Last 24 Hours 10/26/18 10/27/18 10/28/18 23:59 23:59 23:59 Intake Total 500 / 500 1082 / 1082 1480 / 1480 Output Total 1770 / 1770 2900 / 2900 450 / 450 Balance -1270 / -1270 -1818 / -1818 1030 / 1030 General: Alert, Oriented x3, Cooperative HEENT: Atraumatic, PERRLA, EOMI, Normocephalic Neck: Supple, No JVD, Negative Carotid Bruits Lungs: Diminished, Rhonchi, Short of Breath, Wheezes Cardiovascular: Regular rate, Regular Rhythm, Normal S1, Normal S2, No murmurs Abdomen: Bowel Sounds Present, Soft, Non Tender, Non-Distended, - - Suprapubic catheter Extremities: Capillary Refill Less than 3 Seconds, Edema Skin: No rashes, No breakdown Musculoskeletal: No Tenderness to Palpation of Joints or Extremities, Arthritic Changes, - - Missing distal digits in hands and feet suggestive of arthrogryposis. Kyphosis present. Single kidney Neurological: Cranial nerves II-XII grossly intact Psych/Mental Status: Normal Affect, Appropriate Microbiology Past 72 Hours 10/26/18 01:15 Blood Culture (Wb) - Arm Left Blood Culture - Preliminary No growth in 48 hours. 10/25/18 01:05 Blood Culture (Wb) - Arm Left Blood Culture - Preliminary No growth in 48 hours. 10/26/18 13:30 Mucosa - Nasopharyngeal Respiratory Panel (PCR) - Final Influenzae B Human Coy 10/26/18 13:30 Mucosa - Nasopharyngeal Influenza Types A,B Direct FA (THERESA) - Final Current Medications Albuterol Sulfate (Ventolin Aerosols) 2.5 mg INHALATION Q2H PRN PRN PRN Reason: SOB &/OR WHEEZING Last Admin: 10/26/18 12:52 Dose: 2.5 mg Albuterol/Ipratropium (Duoneb) 3 ml INHALATION Q4HWA.RT [facility] Last Admin: 10/28/18 15:14 Dose: 3 ml Aspirin (Aspirin, Baby) 81 mg PO DAILY@0800 [facility] Last Admin: 10/28/18 09:55 Dose: 81 mg Atorvastatin Calcium (Lipitor) 80 mg PO QHS [facility] Last Admin: 10/27/18 22:04 Dose: 80 mg Calcium/Vitamin D (Os-Guillermo 500mg + D) 1 tablet PO DAILY [facility] Last Admin: 10/28/18 09:55 Dose: 1 tablet Dibucaine (Dibucaine) 1 applic TOPICAL 4X/DAY PRN PRN PRN Reason: anal pain Enoxaparin Sodium (Lovenox) 40 mg SC DAILY [facility] Last Admin: 10/28/18 09:59 Dose: Not Given Furosemide (Lasix) 40 mg IV BIDLX [facility] Last Admin: 10/28/18 09:54 Dose: 40 mg Guaifenesin (Robitussin) 10 ml PO Q6H PRN PRN PRN Reason: COUGH Last Admin: 10/28/18 05:44 Dose: 10 ml Sodium Chloride () 250 mls @ 15 mls/hr IV .[id number] PRN PRN Reason: SALINE FLUSH Last Admin: 10/26/18 17:14 Dose: 15 mls/hr Lisinopril (Zestril) 5 mg PO DAILY [facility] Last Admin: 10/28/18 09:55 Dose: 5 mg Methylprednisolone (Solu-Medrol) 40 mg IV Q8 [facility] Last Admin: 10/28/18 13:54 Dose: 40 mg Oseltamivir Phosphate (Tamiflu) 30 mg PO BID [facility] Stop: 10/31/18 22:01 Last Admin: 10/28/18 09:55 Dose: 30 mg Potassium Chloride (K-Dur) 20 meq PO BIDCM [facility] Last Admin: 10/28/18 09:55 Dose: 20 meq Sodium Chloride () 5 - 15 ml IV UD PRN PRN Reason: SALINE FLUSH Last Admin: 10/28/18 13:54 Dose: 10 ml Medical Necessity - Tobacco Use Smoking Status: Never smoker Assessment/Plan All Active Problems Hypoxia (Acute) Pneumonia (Acute) Sepsis (Acute) Shortness of breath (Acute) Acute congestive heart failure (Acute) This is a 78y/o female with PMHx of COPD/pulmonary hypertension, chronic diastolic CHF comes in with worsening SOB and has been managed as acute on chronic diastolic CHF and acute COPD exacerbation. Patient has symptoms of shortness of breath, sore throat, postnasal drip and URI symptoms 1. Acute hypoxic respiratory failure CHF and acute COPD exacerbation, not on oxygen at home, continue on home oxygen, SPO2 more than 92% 2. Acute on chronic diastolic CHF: Echo in January 2018 reported as EF 75%, stage 1 diastolic dysfunction, on fluid restriction, daily weights. Lasix increased to 40 mg IV every 8 hourly as the patient chest x-ray still suggestive of interstitial edema and congestion. Consider beta-malina when patient is more euvolemic. Patient also has moderate pulmonary hypertension with RVSP 54 mmHg. Normal tricuspid valve. Trivial TR. Normal left atrium. Right atrium mildly enlarged. 3. Acute COPD exacerbation, probably secondary to influenza B and human Coy viral bronchitis: Patient has seen Dr. 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 Continue Tamiflu as patient still comes in 48 hours window. 4. Hypertension, controlled, on Lisinopril, continue to monitor vitals 5. Hyperlipidemia, on statin 6. DVT PPx- Lovenox SC Active Medications Albuterol Sulfate (Ventolin Aerosols) 2.5 mg INHALATION Q2H PRN PRN PRN Reason: SOB &/OR WHEEZING Last Admin: 10/26/18 12:52 Dose: 2.5 mg Albuterol/Ipratropium (Duoneb) 3 ml INHALATION Q4HWA.RT [facility] Last Admin: 10/27/18 15:10 Dose: Not Given Aspirin (Aspirin, Baby) 81 mg PO DAILY@0800 [facility] Last Admin: 10/27/18 09:27 Dose: 81 mg Atorvastatin Calcium (Lipitor) 80 mg PO QHS [facility] Last Admin: 10/26/18 21:15 Dose: 80 mg Azithromycin (Zithromax) 500 mg PO Q24 [facility] Stop: 10/28/18 10:01 Calcium/Vitamin D (Os-Guillermo 500mg + D) 1 tablet PO DAILY [facility] Last Admin: 10/27/18 09:26 Dose: 1 tablet Dibucaine (Dibucaine) 1 applic TOPICAL 4X/DAY PRN PRN PRN Reason: anal pain Enoxaparin Sodium (Lovenox) 40 mg SC DAILY [facility] Last Admin: 10/27/18 09:22 Dose: Not Given Furosemide (Lasix) 40 mg IV BIDLX [facility] Last Admin: 10/27/18 16:01 Dose: 40 mg Sodium Chloride () 250 mls @ 15 mls/hr IV .[id number] PRN PRN Reason: SALINE FLUSH Last Admin: 10/26/18 17:14 Dose: 15 mls/hr Lisinopril (Zestril) 5 mg PO DAILY [facility] Last Admin: 10/27/18 09:27 Dose: 5 mg Methylprednisolone (Solu-Medrol) 40 mg IV Q8 [facility] Last Admin: 10/27/18 13:38 Dose: 40 mg Oseltamivir Phosphate (Tamiflu) 30 mg PO BID [facility] Stop: 10/31/18 22:01 Last Admin: 10/27/18 13:38 Dose: 30 mg Potassium Chloride (K-Dur) 20 meq PO BIDCM [facility] Last Admin: 10/27/18 16:01 Dose: 20 meq Sodium Chloride () 5 - 15 ml IV UD PRN PRN Reason: SALINE FLUSH Last Admin: 10/27/18 16:01 Dose: 10 ml Code Visit Inpatient E&M: [id number] [facility] L3
--- NOTE | 2018-10-28 16:02 | PN_ITS ---
Patient Problems: Active and Suspected Problems Acute congestive heart failure (Acute) Subjective: Patient shortness of breath is better but is still wheezy. And reviewed. Chest x-ray is not of good quality and shows interstitial prominence and infiltrates in perihilar region suggestive of interstitial edema. Lungs are hyperexpanded suggestive of COPD. Vitals/I&O's: Vital Signs Temp Pulse Resp BP Pulse Ox 97 F L 100 16 116/68 94 10/28/18 10:00 10/28/18 15:14 10/28/18 15:14 10/28/18 10:00 10/28/18 10:00 Oxygen Flow Rate (L/min) 1.5 Oxygen Delivery Method Nasal Cannula Weight: 195 lb 1.745 oz Body Mass Index (BMI) 39.8 Intake and Output for Last 24 Hours 10/26/18 10/27/18 10/28/18 23:59 23:59 23:59 Intake Total 500 / 500 1082 / 1082 1480 / 1480 Output Total 1770 / 1770 2900 / 2900 450 / 450 Balance -1270 / -1270 -1818 / -1818 1030 / 1030 General: Alert, Oriented x3, Cooperative HEENT: Atraumatic, PERRLA, EOMI, Normocephalic Neck: Supple, No JVD, Negative Carotid Bruits Lungs: Diminished, Rhonchi, Short of Breath, Wheezes Cardiovascular: Regular rate, Regular Rhythm, Normal S1, Normal S2, No murmurs Abdomen: Bowel Sounds Present, Soft, Non Tender, Non-Distended, - - Suprapubic catheter Extremities: Capillary Refill Less than 3 Seconds, Edema Skin: No rashes, No breakdown Musculoskeletal: No Tenderness to Palpation of Joints or Extremities, Arthritic Changes, - - Missing distal digits in hands and feet suggestive of arthrogryposis. Kyphosis present. Single kidney Neurological: Cranial nerves II-XII grossly intact Psych/Mental Status: Normal Affect, Appropriate Microbiology Past 72 Hours 10/26/18 01:15 Blood Culture (Wb) - Arm Left Blood Culture - Preliminary No growth in 48 hours. 10/25/18 01:05 Blood Culture (Wb) - Arm Left Blood Culture - Preliminary No growth in 48 hours. 10/26/18 13:30 Mucosa - Nasopharyngeal Respiratory Panel (PCR) - Final Influenzae B Human Thayer 10/26/18 13:30 Mucosa - Nasopharyngeal Influenza Types A,B Direct FA (THERESA) - Final Current Medications Albuterol Sulfate (Ventolin Aerosols) 2.5 mg INHALATION Q2H PRN PRN PRN Reason: SOB &/OR WHEEZING Last Admin: 10/26/18 12:52 Dose: 2.5 mg Albuterol/Ipratropium (Duoneb) 3 ml INHALATION Q4HWA.RT [facility] Last Admin: 10/28/18 15:14 Dose: 3 ml Aspirin (Aspirin, Baby) 81 mg PO DAILY@0800 [facility] Last Admin: 10/28/18 09:55 Dose: 81 mg Atorvastatin Calcium (Lipitor) 80 mg PO QHS [facility] Last Admin: 10/27/18 22:04 Dose: 80 mg Calcium/Vitamin D (Os-Guillermo 500mg + D) 1 tablet PO DAILY [facility] Last Admin: 10/28/18 09:55 Dose: 1 tablet Dibucaine (Dibucaine) 1 applic TOPICAL 4X/DAY PRN PRN PRN Reason: anal pain Enoxaparin Sodium (Lovenox) 40 mg SC DAILY [facility] Last Admin: 10/28/18 09:59 Dose: Not Given Furosemide (Lasix) 40 mg IV BIDLX [facility] Last Admin: 10/28/18 09:54 Dose: 40 mg Guaifenesin (Robitussin) 10 ml PO Q6H PRN PRN PRN Reason: COUGH Last Admin: 10/28/18 05:44 Dose: 10 ml Sodium Chloride () 250 mls @ 15 mls/hr IV .[id number] PRN PRN Reason: SALINE FLUSH Last Admin: 10/26/18 17:14 Dose: 15 mls/hr Lisinopril (Zestril) 5 mg PO DAILY [facility] Last Admin: 10/28/18 09:55 Dose: 5 mg Methylprednisolone (Solu-Medrol) 40 mg IV Q8 [facility] Last Admin: 10/28/18 13:54 Dose: 40 mg Oseltamivir Phosphate (Tamiflu) 30 mg PO BID [facility] Stop: 10/31/18 22:01 Last Admin: 10/28/18 09:55 Dose: 30 mg Potassium Chloride (K-Dur) 20 meq PO BIDCM [facility] Last Admin: 10/28/18 09:55 Dose: 20 meq Sodium Chloride () 5 - 15 ml IV UD PRN PRN Reason: SALINE FLUSH Last Admin: 10/28/18 13:54 Dose: 10 ml Medical Necessity - Tobacco Use Smoking Status: Never smoker Assessment/Plan All Active Problems Hypoxia (Acute) Pneumonia (Acute) Sepsis (Acute) Shortness of breath (Acute) Acute congestive heart failure (Acute) This is a 78y/o female with PMHx of COPD/pulmonary hypertension, chronic diastolic CHF comes in with worsening SOB and has been managed as acute on chronic diastolic CHF and acute COPD exacerbation. Patient has symptoms of shortness of breath, sore throat, postnasal drip and URI symptoms 1. Acute hypoxic respiratory failure CHF and acute COPD exacerbation, not on oxygen at home, continue on home oxygen, SPO2 more than 92% 2. Acute on chronic diastolic CHF: Echo in January 2018 reported as EF 75%, stage 1 diastolic dysfunction, on fluid restriction, daily weights. Lasix increased to 40 mg IV every 8 hourly as the patient chest x-ray still suggestive of interstitial edema and congestion. Consider beta-malina when patient is more euvolemic. Patient also has moderate pulmonary hypertension with RVSP 54 mmHg. Normal tricuspid valve. Trivial TR. Normal left atrium. Right atrium mildly enlarged. 3. Acute COPD exacerbation, probably secondary to influenza B and human Thayer viral bronchitis: Patient has seen Dr. 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 Continue Tamiflu as patient still comes in 48 hours window. 4. Hypertension, controlled, on Lisinopril, continue to monitor vitals 5. Hyperlipidemia, on statin 6. DVT PPx- Lovenox SC Active Medications Albuterol Sulfate (Ventolin Aerosols) 2.5 mg INHALATION Q2H PRN PRN PRN Reason: SOB &/OR WHEEZING Last Admin: 10/26/18 12:52 Dose: 2.5 mg Albuterol/Ipratropium (Duoneb) 3 ml INHALATION Q4HWA.RT [facility] Last Admin: 10/27/18 15:10 Dose: Not Given Aspirin (Aspirin, Baby) 81 mg PO DAILY@0800 [facility] Last Admin: 10/27/18 09:27 Dose: 81 mg Atorvastatin Calcium (Lipitor) 80 mg PO QHS [facility] Last Admin: 10/26/18 21:15 Dose: 80 mg Azithromycin (Zithromax) 500 mg PO Q24 [facility] Stop: 10/28/18 10:01 Calcium/Vitamin D (Os-Guillermo 500mg + D) 1 tablet PO DAILY [facility] Last Admin: 10/27/18 09:26 Dose: 1 tablet Dibucaine (Dibucaine) 1 applic TOPICAL 4X/DAY PRN PRN PRN Reason: anal pain Enoxaparin Sodium (Lovenox) 40 mg SC DAILY [facility] Last Admin: 10/27/18 09:22 Dose: Not Given Furosemide (Lasix) 40 mg IV BIDLX [facility] Last Admin: 10/27/18 16:01 Dose: 40 mg Sodium Chloride () 250 mls @ 15 mls/hr IV .[id number] PRN PRN Reason: SALINE FLUSH Last Admin: 10/26/18 17:14 Dose: 15 mls/hr Lisinopril (Zestril) 5 mg PO DAILY [facility] Last Admin: 10/27/18 09:27 Dose: 5 mg Methylprednisolone (Solu-Medrol) 40 mg IV Q8 [facility] Last Admin: 10/27/18 13:38 Dose: 40 mg Oseltamivir Phosphate (Tamiflu) 30 mg PO BID [facility] Stop: 10/31/18 22:01 Last Admin: 10/27/18 13:38 Dose: 30 mg Potassium Chloride (K-Dur) 20 meq PO BIDCM [facility] Last Admin: 10/27/18 16:01 Dose: 20 meq Sodium Chloride () 5 - 15 ml IV UD PRN PRN Reason: SALINE FLUSH Last Admin: 10/27/18 16:01 Dose: 10 ml Code Visit Inpatient E&M: [id number] [facility] L3
[2018-10-28] MEDS: Atorvastatin Calcium 80 MG Tablet PO (21:06)
--- NOTE | 2018-10-28 21:54 | CPS ---
I TRIED TO GIVE AND INTRUCT PT ON PEP.PT STATES SHE HAS ONE AT HOME AND DOESNT WANT ONE.PT ADVISED OF BENEFITS OF DOING PEP DURING HER ADMISSION.PT STILL REFUSED PEP.
--- NOTE | 2018-10-28 22:40 | NURSING ---
pt called out c/o feelig wheezy. resp called for a breathing tx
[2018-10-28] MEDS: Albuterol 2.5 MG/3 ML VIAL.NEB. INHALATION (23:00)
[2018-10-29] VITALS (17 sets, daily range): BP systolic 111–141; BP diastolic 60–96; PULSE 93–108; RESP 16–22; TEMP 36.5–36.8; O2SAT 94–96
[2018-10-29] MEDS: Albuterol 2.5 MG/3 ML VIAL.NEB. INHALATION (01:00)
[2018-10-29] MEDS: Ipratropium/Albuterol Sulfate 3 ML AMPUL.NEB INHALATION ×5 (03:00→18:48)
[2018-10-29] MEDS: Furosemide 40 MG/4 ML Vial IV (05:42)
[2018-10-29] MEDS: 0.9% NaCl Peripheral Flush Adult/Peds IV ×2 (05:42→22:17)
[2018-10-29 06:13] LABS: Anion Gap 9 (5-15); BUN 41 mg/dL (7-18); BUN/Creat Ratio 57.1 RATIO (10-20); Calcium,Total 8.3 mg/dL (8.5-10.1); Chloride 93 mmol/L (98-107); Creatinine, Serum 0.72 mg/dL (0.55-1.02); EST Glomerular Filtration Rate 84 mL/min (>60); Est Glom Filt Rate - Afr Amer 102 mL/min (>60); Estimated Creatinine Clearance 66.87 ml/min; Glucose 176 mg/dL (74-106); Magnesium 1.9 mg/dL (1.6-2.6); Potassium 5.8 mmol/L (3.5-5.1); Sodium Level 126 mmol/L (136-145)
--- NOTE | 2018-10-29 08:21 | EKG12_ITS ---
Test Reason : ARRYTHMIA Blood Pressure : / mmHG Vent. Rate : 107 BPM Atrial Rate : 107 BPM P-R Int : 188 ms QRS Dur : 084 ms QT Int : 314 ms P-R-T Axes : 062 000 053 degrees QTc Int : 419 ms Sinus tachycardia Possible Left atrial enlargement Cannot rule out Anterior infarct , age undetermined Abnormal ECG When compared with ECG of 25-OCT-2018 23:32, MANUAL COMPARISON REQUIRED, DATA IS UNCONFIRMED Confirmed by ALEKSANDAR PRYOR, BRETT ([id number]), international editorial producer LEON DURAN ([id number]) on 10/31/2018 2:11:58 PM Referred By: VIKI Confirmed By:BRETT HUERTAS MD
[2018-10-29] MEDS: Sodium Polystyrene Sulfonate 15 GM/60 ML UDC 30 GM PO (08:52)
[2018-10-29] MEDS: Aspirin 81 MG TAB.CHEW PO (08:52)
[2018-10-29] MEDS: Oseltamivir Phosphate 30 MG Capsule PO ×2 (08:52→22:18)
[2018-10-29] MEDS: Calcium Carb/Vitamin D 1 TABLET Tablet PO (08:52)
[2018-10-29] MEDS: Lisinopril 5 MG Tablet PO (08:52)
--- NOTE | 2018-10-29 11:57 | PCM.PN.HOSP ---
Patient Problems: Active and Suspected Problems Acute congestive heart failure (Acute) Subjective: Seen and examined. The patient concerned of hyperkalemia, K 5.8 in the morning, sodium 126. No fever. Heart rate 93/min. Pulse ox 96% on 1-2 L/min. Patient is still has cough and wheezing. 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 Samano. After he retired, she has not seen new urologist and has never seen a sfdc architect. Vitals/I&O's: Vital Signs Temp Pulse Resp BP Pulse Ox 98.2 F 101 H 19 H 111/79 96 10/29/18 08:26 10/29/18 11:03 10/29/18 10:59 10/29/18 08:26 10/29/18 08:26 Oxygen Flow Rate (L/min) 1.5 Oxygen Delivery Method Nasal Cannula Weight: 195 lb 5.273 oz Body Mass Index (BMI) 39.8 Intake and Output for Last 24 Hours 10/27/18 10/28/18 10/29/18 23:59 23:59 23:59 Intake Total 1082 / 1082 2080 / 2080 60 / 60 Output Total 2900 / 2900 1550 / 1550 200 / 200 Balance -1818 / -1818 530 / 530 -140 / -140 General: Alert, Oriented x3, Cooperative HEENT: Atraumatic, PERRLA, EOMI, Normocephalic Neck: Supple, No JVD, Negative Carotid Bruits Lungs: Diminished - Air entry diminished., Rhonchi, Wheezes, - - Significant kyphosis. Cardiovascular: Regular rate, Normal S1, Normal S2, No murmurs Abdomen: Bowel Sounds Present, Soft, Non Tender, Non-Distended, - - Solitary left kidney. Extremities: Capillary Refill Less than 3 Seconds, Edema Skin: No rashes, No breakdown Musculoskeletal: No Tenderness to Palpation of Joints or Extremities, - - Missing distal digits in hands and feet suggestive of arthrogryposis. Kyphosis present. Neurological: Cranial nerves II-XII grossly intact Psych/Mental Status: Normal Affect, Appropriate Microbiology Past 72 Hours 10/26/18 01:15 Blood Culture (Wb) - Arm Left Blood Culture - Preliminary No growth in 48 hours. 10/25/18 01:05 Blood Culture (Wb) - Arm Left Blood Culture - Preliminary No growth in 48 hours. 10/26/18 13:30 Mucosa - Nasopharyngeal Respiratory Panel (PCR) - Final Influenzae B Human [place] 10/26/18 13:30 Mucosa - Nasopharyngeal Influenza Types A,B Direct FA (THERESA) - Final Laboratory Results 10/29/18 05:45: Sodium 126 L, Potassium 5.8 H, Chloride 93 L, Carbon Dioxide 24.0, Anion Gap 9, BUN 41 H, Creatinine 0.72, Estim Creat Clear Calc 66.87, Est GFR (MDRD) Af Amer 102, Est GFR (MDRD) Non-Af 84, BUN/Creatinine Ratio 57.1 H, Glucose 176 H, Calcium 8.3 L, Magnesium 1.9 Current Medications Albuterol Sulfate (Ventolin Aerosols) 2.5 mg INHALATION Q2H PRN PRN PRN Reason: SOB &/OR WHEEZING Last Admin: 10/29/18 01:00 Dose: 2.5 mg Albuterol/Ipratropium (Duoneb) 3 ml INHALATION Q4HWA.RT [facility] Last Admin: 10/29/18 10:59 Dose: 3 ml Aspirin (Aspirin, Baby) 81 mg PO DAILY@0800 [facility] Last Admin: 10/29/18 08:52 Dose: 81 mg Atorvastatin Calcium (Lipitor) 80 mg PO QHS [facility] Last Admin: 10/28/18 21:06 Dose: 80 mg Benzonatate (Tessalon Perle) 200 mg PO TID [facility] Calcium/Vitamin D (Os-Guillermo 500mg + D) 1 tablet PO DAILY [facility] Last Admin: 10/29/18 08:52 Dose: 1 tablet Dibucaine (Dibucaine) 1 applic TOPICAL 4X/DAY PRN PRN PRN Reason: anal pain Enoxaparin Sodium (Lovenox) 40 mg SC DAILY [facility] Last Admin: 10/29/18 08:52 Dose: Not Given Furosemide (Lasix) 40 mg IV Q12H [facility] Guaifenesin (Mucinex) 1,200 mg PO BID [facility] Sodium Chloride () 250 mls @ 15 mls/hr IV .[id number] PRN PRN Reason: SALINE FLUSH Last Admin: 10/26/18 17:14 Dose: 15 mls/hr Lisinopril (Zestril) 5 mg PO DAILY [facility] Last Admin: 10/29/18 08:52 Dose: 5 mg Methylprednisolone (Solu-Medrol) 40 mg IV Q8 [facility] Last Admin: 10/29/18 05:42 Dose: 40 mg Oseltamivir Phosphate (Tamiflu) 30 mg PO BID [facility] Stop: 10/31/18 22:01 Last Admin: 10/29/18 08:52 Dose: 30 mg Sodium Chloride () 5 - 15 ml IV UD PRN PRN Reason: SALINE FLUSH Last Admin: 10/29/18 05:42 Dose: 10 ml Medical Necessity - Tobacco Use Smoking Status: Never smoker Assessment/Plan All Active Problems Hypoxia (Acute) Pneumonia (Acute) Sepsis (Acute) Shortness of breath (Acute) Acute congestive heart failure (Acute) This is a 78y/o female with PMHx of COPD/pulmonary hypertension, chronic diastolic CHF comes in with worsening SOB and has been managed as acute on chronic diastolic CHF and acute COPD exacerbation. Patient has symptoms of shortness of breath, sore throat, postnasal drip and URI symptoms 1. Acute hypoxic respiratory failure CHF and acute COPD exacerbation, not on oxygen at home, continue on home oxygen, SPO2 more than 92% 2. Acute on chronic diastolic CHF: Echo in January 2018 reported as EF 75%, stage 1 diastolic dysfunction, on fluid restriction, daily weights. Initially, Lasix was increased secondary to pulmonary congestion with chest x-ray findings of interstitial edema and congestion but is discontinued. Consider beta-malina when patient is more euvolemic. Patient also has moderate pulmonary hypertension with RVSP 54 mmHg. Normal tricuspid valve. Trivial TR. Normal left atrium. Right atrium mildly enlarged. 3. CKD stage III with mild proteinuria, mild hyperkalemia and hyponatremia: Director Global Dr. Chu was consulted. UA was done by [employer]fd[employer] architect. UA shows protein 30, LE 500, RBC 5200, WBC 0-5, random sodium 7 and creatinine 30. Specific gravity 1.01 normal. Patient was given Kayexalate for K5.8. Repeat K is 4.7. Sodium improved 128 to 130. Since patient had mild hyperkalemia as patient was on potassium supplement with Lasix. 3. Acute COPD exacerbation, probably secondary to influenza B and human [place] viral bronchitis: Patient has seen Dr. 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 Continue Tamiflu as patient still comes in 48 hours window. Discussed with the respiratory therapist for chest physiotherapy/vest therapy. Needs pulmonary hygiene 4. Hypertension, controlled, on Lisinopril, continue to monitor vitals 5. Hyperlipidemia, on statin 6. DVT PPx- Lovenox SC Microbiology Past 72 Hours 10/26/18 01:15 Blood Culture (Wb) - Arm Left Blood Culture - Preliminary No growth in 48 hours. 10/25/18 01:05 Blood Culture (Wb) - Arm Left Blood Culture - Preliminary No growth in 48 hours. 10/26/18 13:30 Mucosa - Nasopharyngeal Respiratory Panel (PCR) - Final Influenzae B Human [place] 10/26/18 13:30 Mucosa - Nasopharyngeal Influenza Types A,B Direct FA (THERESA) - Final Laboratory Results 10/29/18 05:45: Sodium 126 L, Potassium 5.8 H, Chloride 93 L, Carbon Dioxide 24.0, Anion Gap 9, BUN 41 H, Creatinine 0.72, Estim Creat Clear Calc 66.87, Est GFR (MDRD) Af Amer 102, Est GFR (MDRD) Non-Af 84, BUN/Creatinine Ratio 57.1 H, Glucose 176 H, Calcium 8.3 L, Magnesium 1.9 10/29/18 13:02: Sodium 130 L, Potassium 4.7, Chloride 91 L, Carbon Dioxide 29.0, Anion Gap 10, BUN 42 H, Creatinine 0.86, Estim Creat Clear Calc 77.84, Est GFR (MDRD) Af Amer 82, Est GFR (MDRD) Non-Af 68, BUN/Creatinine Ratio 48.6 H, Glucose 175 H, Calcium 8.6 10/29/18 13:20: Urine Color Yellow, Urine Clarity Sl. Cloudy, Urine pH 6.0, Ur Specific [place] 1.010, Urine Protein 30 H, Urine Glucose (UA) Normal, Urine Ketones Negative, Urine Occult Blood 250 H, Urine Nitrite Negative, Urine Bilirubin Negative, Urine Urobilinogen Normal, Ur Leukocyte Esterase 500 H, Urine RBC 50-100 SEEN, Urine WBC 0-5 SEEN, Ur Squamous Epith Cells 0-5 SEEN, Urine Bacteria 1+, Urine Mucus 1+ 10/29/18 13:20: Ur Random Sodium 7 10/29/18 13:20: Urine Creatinine 30.40 Active Medications Albuterol Sulfate (Ventolin Aerosols) 2.5 mg INHALATION Q2H PRN PRN PRN Reason: SOB &/OR WHEEZING Last Admin: 10/29/18 01:00 Dose: 2.5 mg Albuterol/Ipratropium (Duoneb) 3 ml INHALATION Q4HWA.RT [facility] Last Admin: 10/29/18 14:55 Dose: 3 ml Aspirin (Aspirin, Baby) 81 mg PO DAILY@0800 [facility] Last Admin: 10/29/18 08:52 Dose: 81 mg Atorvastatin Calcium (Lipitor) 80 mg PO QHS [facility] Last Admin: 10/28/18 21:06 Dose: 80 mg Benzonatate (Tessalon Perle) 200 mg PO TID [facility] Last Admin: 10/29/18 14:34 Dose: 200 mg Calcium/Vitamin D (Os-Guillermo 500mg + D) 1 tablet PO DAILY [facility] Last Admin: 10/29/18 08:52 Dose: 1 tablet Dibucaine (Dibucaine) 1 applic TOPICAL 4X/DAY PRN PRN PRN Reason: anal pain Enoxaparin Sodium (Lovenox) 40 mg SC DAILY [facility] Last Admin: 10/29/18 08:52 Dose: Not Given Guaifenesin (Mucinex) 1,200 mg PO BID [facility] Last Admin: 10/29/18 12:38 Dose: 1,200 mg Sodium Chloride () 250 mls @ 15 mls/hr IV .[id number] PRN PRN Reason: SALINE FLUSH Last Admin: 10/26/18 17:14 Dose: 15 mls/hr Methylprednisolone (Solu-Medrol) 40 mg IV Q8 [facility] Last Admin: 10/29/18 14:34 Dose: 40 mg Oseltamivir Phosphate (Tamiflu) 30 mg PO BID [facility] Stop: 10/31/18 22:01 Last Admin: 10/29/18 08:52 Dose: 30 mg Sodium Chloride () 5 - 15 ml IV UD PRN PRN Reason: SALINE FLUSH Last Admin: 10/29/18 05:42 Dose: 10 ml Code Visit Inpatient E&M: 16847 [facility] Hosp L3
--- NOTE | 2018-10-29 12:05 | CON.PCM_ITS ---
Consultation - Renal 10/29/18 PCP/ Referring MD: Requesting physician: Dr Pop Primary care physician: Momo Carvajal MD Reason for Consultation:: solitary kidney renal mgmt, hyponatremia, hyperkalemia - History of Present Illness History of Present Illness: The patient is a 78 year old short statured, obese female w/ h/o arthrogryposis since age 10, solitary kidney disease s/p rt nephrectomy for chronic UTI, chronic systolic heart failure, COPD, pulmonary HTN, and HTN is admitted for SOB. She has been feeling ill for the past few days since Saturday with myalgia. She thought she has a cold. She was hypoxic at home with O2 at 78%. She started with a productive cough with white phlegm. Denies fever, chills. Denied chest pain. She had no urinary complaints. Her lasix dose was increased from 40mg daily to 80mg daily last week by pcp. Resp panel positive for Influenza B with human metapneumovirus. She refused flu shot in the past. She continues with cough and wheezing. She is concerned about her kidney fxn. with having 1 kidney. Appetite fair. Denies nausea, vomiting. Potassium elevated at 5.8 with sodium 126 today. Currently on solumedrol. - Allergies Allergies: Allergies No Known Allergies Allergy (Verified 01/26/18 19:43) - Current Medications Current Medications: Current Medications Albuterol Sulfate (Ventolin Aerosols) 2.5 mg INHALATION Q2H PRN PRN PRN Reason: SOB &/OR WHEEZING Last Admin: 10/29/18 01:00 Dose: 2.5 mg Albuterol/Ipratropium (Duoneb) 3 ml INHALATION Q4HWA.RT [facility] Last Admin: 10/29/18 10:59 Dose: 3 ml Aspirin (Aspirin, Baby) 81 mg PO DAILY@0800 [facility] Last Admin: 10/29/18 08:52 Dose: 81 mg Atorvastatin Calcium (Lipitor) 80 mg PO QHS [facility] Last Admin: 10/28/18 21:06 Dose: 80 mg Benzonatate (Tessalon Perle) 200 mg PO TID [facility] Calcium/Vitamin D (Os-Guillermo 500mg + D) 1 tablet PO DAILY [facility] Last Admin: 10/29/18 08:52 Dose: 1 tablet Dibucaine (Dibucaine) 1 applic TOPICAL 4X/DAY PRN PRN PRN Reason: anal pain Enoxaparin Sodium (Lovenox) 40 mg SC DAILY [facility] Last Admin: 10/29/18 08:52 Dose: Not Given Furosemide (Lasix) 40 mg IV Q12H [facility] Guaifenesin (Mucinex) 1,200 mg PO BID [facility] Sodium Chloride () 250 mls @ 15 mls/hr IV .[id number] PRN PRN Reason: SALINE FLUSH Last Admin: 10/26/18 17:14 Dose: 15 mls/hr Lisinopril (Zestril) 5 mg PO DAILY [facility] Last Admin: 10/29/18 08:52 Dose: 5 mg Methylprednisolone (Solu-Medrol) 40 mg IV Q8 [facility] Last Admin: 10/29/18 05:42 Dose: 40 mg Oseltamivir Phosphate (Tamiflu) 30 mg PO BID [facility] Stop: 10/31/18 22:01 Last Admin: 10/29/18 08:52 Dose: 30 mg Sodium Chloride () 5 - 15 ml IV UD PRN PRN Reason: SALINE FLUSH Last Admin: 10/29/18 05:42 Dose: 10 ml - Past Medical History Past Medical History (Chronic Problems): Chronic Problems HTN (hypertension) (Chronic) HLD (hyperlipidemia) (Chronic) Arthrogryposis (Chronic) Single kidney (Chronic) Morbid obesity with BMI of 40.0-44.9, adult (Chronic) - Past Surgical History Surgical History: - - R Nephrectomy, Minor Surgey on the L Kidney, notable BL UE and LE corrective surgeries in her youth. - Social History Marital Status: Smoking Status: Never smoker - Family History Maternal History Items: Heart Disease Paternal History Items: Heart Disease Review of Systems Constitutional: Reports: Malaise, Weakness, Fatigue. Denies: Anorexia, Chills, Fever Eyes: Denies: Blurred vision HEENT: Denies: Head Aches Cardiovascular: Denies: Chest Pain, Edema, Palpitations, Syncope Respiratory: Reports: Cough, Shortness of breath at rest, Sputum production - white phlegm, Wheezing. Denies: Hemoptysis Gastrointestinal: Denies: Abdominal Pain, Diarrhea, Nausea, Vomiting Genitourinary: Denies: Dysuria Musculoskeletal: Reports: - - limited ROM upper extrem, uses walker at home Neurological: Reports: Balance problems. Denies: Confusion, Tremor, Seizures Psychiatric: Denies: Anxiety, Depression Hematologic/ Lymphatic: Denies: Anemia Patient Problems: Active and Suspected Problems Acute congestive heart failure (Acute) - Physical Exam General: Alert, Oriented x3, Cooperative, No apparent distress, - - moist cough HEENT: PERRLA, EOMI Oral: Moist Mucosa Lungs: Rhonchi, Wheezes Cardiovascular: Regular rate, Murmur, No rub noted Abdomen: Bowel Sounds Present, Soft, Non Tender, Non-Distended, Obese Extremities: No edema, - - deformed extremities, limited ROM upper extrem, unable to raise arms Skin: No rashes Musculoskeletal: No Muscle Wasting Lymphatic: No Cervical, Supraclavicular, or Inguinal Adenopathy Neurological: - - debilitated chronically Psych/Mental Status: Normal Affect, Appropriate, Alert and oriented to time, place, person, mood and affect Vital Signs Temp Pulse Resp BP Pulse Ox 98.2 F 101 H 19 H 111/79 96 10/29/18 08:26 10/29/18 11:03 10/29/18 10:59 10/29/18 08:26 10/29/18 08:26 Oxygen Flow Rate (L/min) 1.5 Oxygen Delivery Method Nasal Cannula Weight: 88.6 kg Body Mass Index (BMI) 39.8 Intake and Output for Last 24 Hours 10/27/18 10/28/18 10/29/18 23:59 23:59 23:59 Intake Total 1082 / 1082 2080 / 2080 60 / 60 Output Total 2900 / 2900 1550 / 1550 200 / 200 Balance -1818 / -1818 530 / 530 -140 / -140 Microbiology Past 72 Hours 10/26/18 01:15 Blood Culture - Preliminary Blood Culture (Wb) - Arm Left No growth in 48 hours. 10/25/18 01:05 Blood Culture - Preliminary Blood Culture (Wb) - Arm Left No growth in 48 hours. 10/26/18 13:30 Respiratory Panel (PCR) - Final Mucosa - Nasopharyngeal Influenzae B Human [place] Influenza Types A,B Direct FA (THERESA) - Final Laboratory Tests Past 24 Hrs 10/29/18 05:45 Sodium 126 L Potassium 5.8 H Chloride 93 L Carbon Dioxide 24.0 Anion Gap 9 BUN 41 H Creatinine 0.72 Estim Creat Clear Calc 66.87 Est GFR (MDRD) Af Amer 102 Est GFR (MDRD) Non-Af 84 BUN/Creatinine Ratio 57.1 H Glucose 176 H Calcium 8.3 L Magnesium 1.9 Clinical Impression(s) from Imaging Studies Chest X-Ray 10/28/18 14:06 IMPRESSION: Continued congestion and pulmonary edema with cardiomegaly. Electronically Signed: Jonny Andrade MD at 17:29 EST , Service support , Assessment/Plan All Active Problems Hypoxia (Acute) Pneumonia (Acute) Sepsis (Acute) Shortness of breath (Acute) Acute congestive heart failure (Acute) 1. Hyponatremia may be from diuretics vs adrenal insuff vs SIADH due to pulmonary process. Check urine sodium. TSH stable. Hold lasix. 2. Hyperkalemia follow low K diet. Kayexalate ordered 3. SOB, Acute hypoxemia with wheezing due to influenza B and human metapneumovirus. BNP low at 98. 4. acute Exacerbation COPD on oxygen. 5. Hx solitary kidney disease s/p rt nephrectomy for chronic infection 6. Arthrogyposis with debilitation, limited ROM
--- NOTE | 2018-10-29 12:13 | US_ITS ---
STUDY: RENAL ULTRASOUND - COMPLETE REASON FOR EXAM: Female, 78 years old. Renal insufficiency. TECHNIQUE: Ultrasound evaluation of the kidneys was performed with real-time and static wiggins-scale imaging. COMPARISON: None. FINDINGS: RIGHT KIDNEY: Surgically absent. LEFT KIDNEY: Normal location of the left kidney, which is normal in size. The left kidney measures 11.0 x 4.8 x 5.0 cm. There is a normal cortex of the left kidney. The renal cortex measures 1.3 cm. There is no left renal mass or cyst. 2 nonobstructing stones are seen, measuring 5 mm and 9 mm. There is no left hydronephrosis. DISTAL LEFT URETER: There is non-visualization of the distal left ureter. There is no demonstrated left ureterovesical junction calculus. There is no demonstrated left ureteral jet. US/Kidney and Bladder IMPRESSION: Absent right kidney. 2 nonobstructing stones of the left kidney. No acute abnormality of the left kidney. No hydronephrosis. Electronically Signed: Jonny Andrade MD at 20:22 EST , Service support ,
[2018-10-29] MEDS: guaiFENesin 1,200 MG Tablet 1200 MG PO ×2 (12:38→22:18)
[2018-10-29 13:37] LABS: Anion Gap 10 (5-15); BUN 42 mg/dL (7-18); BUN/Creat Ratio 48.6 RATIO (10-20); Calcium,Total 8.6 mg/dL (8.5-10.1); Chloride 91 mmol/L (98-107); Creatinine, Serum 0.86 mg/dL (0.55-1.02); EST Glomerular Filtration Rate 68 mL/min (>60); Est Glom Filt Rate - Afr Amer 82 mL/min (>60); Estimated Creatinine Clearance 77.84 ml/min; Glucose 175 mg/dL (74-106); Potassium 4.7 mmol/L (3.5-5.1); Sodium Level 130 mmol/L (136-145)
[2018-10-29 13:38] LABS: Color, Urine Yellow (Yellow); Glucose, Dipstick Normal (Normal); Ketone-Dipstick Negative (Negative); Leukocyte Esterase-Dipstick 500 /ul (Negative); Nitrite-Dipstick Negative (Negative); Occult Blood-Urine 250 /ul (Negative); Protein-Dipstick 30 mg/dl (Negative); Urine Bilirubin Dipstick Negative (Negative); Urine Clarity Sl. Cloudy (Clear); Urine Urobilinogen Normal (Normal)
[2018-10-29 13:40] LABS: Urine Sodium 7 mmol/L (Not Establ.)
[2018-10-29 13:44] LABS: Bacteria 1+ /hpf (None Seen); Mucous, Urine 1+ /hpf (<or=2+); Red Blood Cells-Urine 50-100 SEEN /hpf (0-5); Squamous Epithelial Cells - UA 0-5 SEEN /hpf (5-10); White Blood Cells 0-5 SEEN /hpf (0-5)
[2018-10-29] MEDS: Benzonatate 100 MG Capsule 200 MG PO ×2 (14:34→22:18)
[2018-10-29 18:20] LABS: Anion Gap 11 (5-15); BUN 40 mg/dL (7-18); BUN/Creat Ratio 53.3 RATIO (10-20); Calcium,Total 8.5 mg/dL (8.5-10.1); Chloride 88 mmol/L (98-107); Creatinine, Serum 0.75 mg/dL (0.55-1.02); EST Glomerular Filtration Rate 80 mL/min (>60); Est Glom Filt Rate - Afr Amer 96 mL/min (>60); Estimated Creatinine Clearance 66.94 ml/min; Glucose 162 mg/dL (74-106); Potassium 4.2 mmol/L (3.5-5.1); Sodium Level 129 mmol/L (136-145)
[2018-10-29] MEDS: 0.9% Normal Saline 1,000 ML 50 ML IV (22:17)
[2018-10-29] MEDS: Atorvastatin Calcium 80 MG Tablet PO (22:18)
[2018-10-30] VITALS (15 sets, daily range): BP systolic 114–126; BP diastolic 52–76; PULSE 68–112; RESP 16–20; TEMP 36.3–36.7; O2SAT 92–95
[2018-10-30] MEDS: Albuterol 2.5 MG/3 ML VIAL.NEB. INHALATION (04:26)
[2018-10-30] MEDS: 0.9% NaCl Peripheral Flush Adult/Peds IV ×3 (06:20→18:24)
[2018-10-30] MEDS: Ipratropium/Albuterol Sulfate 3 ML AMPUL.NEB INHALATION ×4 (06:44→19:16)
[2018-10-30] MEDS: Aspirin 81 MG TAB.CHEW PO (08:31)
[2018-10-30 09:03] LABS: BNP,B-Type NATRIURETIC PEPTIDE 66.1 pg/mL (0-100)
[2018-10-30 09:27] LABS: Anion Gap 12 (5-15); BUN 40 mg/dL (7-18); BUN/Creat Ratio 67.9 RATIO (10-20); Chloride 89 mmol/L (98-107); Creatinine, Serum 0.59 mg/dL (0.55-1.02); EST Glomerular Filtration Rate 106 mL/min (>60); Est Glom Filt Rate - Afr Amer 128 mL/min (>60); Glucose 142 mg/dL (74-106); Potassium 3.7 mmol/L (3.5-5.1); Sodium Level 128 mmol/L (136-145)
--- NOTE | 2018-10-30 11:13 | PN.RENAL_ITS ---
Patient Problems: Active and Suspected Problems Acute congestive heart failure (Acute) Subjective: wheezing, SOB stable. Still with cough. BP stable. - Physical Exam General: Alert, Oriented x3, Cooperative, No apparent distress Oral: Moist Mucosa Lungs: Rhonchi, Wheezes Cardiovascular: Regular rate Abdomen: Bowel Sounds Present, Soft, Non Tender, Obese Extremities: No edema Musculoskeletal: No Muscle Wasting, - - deformities of extrem Psych/Mental Status: Normal Affect, Alert and oriented to time, place, person, mood and affect Vital Signs Temp Pulse Resp BP Pulse Ox 98.1 F 101 H 16 123/58 H 93 10/30/18 03:50 10/30/18 07:12 10/30/18 06:44 10/30/18 03:50 10/30/18 06:44 Oxygen Flow Rate (L/min) 2 Oxygen Delivery Method Nasal Cannula Weight: 90 kg Body Mass Index (BMI) 39.8 Intake and Output for Last 24 Hours 10/28/18 10/29/18 10/30/18 23:59 23:59 23:59 Intake Total 2080 / 2080 541 / 541 286 / 286 Output Total 1550 / 1550 1025 / 1025 425 / 425 Balance 530 / 530 -484 / -484 -139 / -139 Microbiology Past 72 Hours 10/26/18 01:15 Blood Culture - Preliminary Blood Culture (Wb) - Arm Left No growth in 48 hours. 10/25/18 01:05 Blood Culture - Preliminary Blood Culture (Wb) - Arm Left No growth in 48 hours. 10/26/18 13:30 Respiratory Panel (PCR) - Final Mucosa - Nasopharyngeal Influenzae B Human [place] Influenza Types A,B Direct FA (THERESA) - Final Laboratory Tests Past 24 Hrs 10/29/18 10/29/18 10/29/18 13:02 13:20 13:20 Sodium 130 L Potassium 4.7 Chloride 91 L Carbon Dioxide 29.0 Anion Gap 10 BUN 42 H Creatinine 0.86 Estim Creat Clear Calc 77.84 Est GFR (MDRD) Af Amer 82 Est GFR (MDRD) Non-Af 68 BUN/Creatinine Ratio 48.6 H Glucose 175 H Calcium 8.6 B-Natriuretic Peptide Urine Color Yellow Urine Clarity Sl. Cloudy Urine pH 6.0 Ur Specific [place] 1.010 Urine Protein 30 H Urine Glucose (UA) Normal Urine Ketones Negative Urine Occult Blood 250 H Urine Nitrite Negative Urine Bilirubin Negative Urine Urobilinogen Normal Ur Leukocyte Esterase 500 H Urine RBC 50-100 SEEN Urine WBC 0-5 SEEN Ur Squamous Epith Cells 0-5 SEEN Urine Bacteria 1+ Urine Mucus 1+ Ur Random Sodium 7 Urine Creatinine 10/29/18 10/29/18 10/30/18 13:20 18:00 07:50 Sodium 129 L 128 L Potassium 4.2 3.7 Chloride 88 L 89 L Carbon Dioxide 30.0 27.0 Anion Gap 11 12 BUN 40 H 40 H Creatinine 0.75 0.59 Estim Creat Clear Calc 66.94 68.00 Est GFR (MDRD) Af Amer 96 128 Est GFR (MDRD) Non-Af 80 106 BUN/Creatinine Ratio 53.3 H 67.9 H Glucose 162 H 142 H Calcium 8.5 8.0 L B-Natriuretic Peptide Urine Color Urine Clarity Urine pH Ur Specific [place] Urine Protein Urine Glucose (UA) Urine Ketones Urine Occult Blood Urine Nitrite Urine Bilirubin Urine Urobilinogen Ur Leukocyte Esterase Urine RBC Urine WBC Ur Squamous Epith Cells Urine Bacteria Urine Mucus Ur Random Sodium Urine Creatinine 30.40 10/30/18 07:50 Sodium Potassium Chloride Carbon Dioxide Anion Gap BUN Creatinine Estim Creat Clear Calc Est GFR (MDRD) Af Amer Est GFR (MDRD) Non-Af BUN/Creatinine Ratio Glucose Calcium B-Natriuretic Peptide 66.1 Urine Color Urine Clarity Urine pH Ur Specific [place] Urine Protein Urine Glucose (UA) Urine Ketones Urine Occult Blood Urine Nitrite Urine Bilirubin Urine Urobilinogen Ur Leukocyte Esterase Urine RBC Urine WBC Ur Squamous Epith Cells Urine Bacteria Urine Mucus Ur Random Sodium Urine Creatinine Medical Necessity - Tobacco Use Smoking Status: Never smoker Assessment/Plan All Active Problems Hypoxia (Acute) Pneumonia (Acute) Sepsis (Acute) Shortness of breath (Acute) Acute congestive heart failure (Acute) 1. Hyponatremia low urine sodium. Continue iv fluids. Echo with normal cardiac function. Doubt CHF. Hold lasix 2. Hyperkalemia resolved with Kayexalate 3. SOB, Acute hypoxemia with wheezing due to influenza B and human metapneumovirus. BNP low at 68. Refused flu shot for years. 4. Hx solitary kidney disease s/p rt nephrectomy for chronic infection. Check renL US 5. Arthrogyposis with debilitation, limited ROM
[2018-10-30] MEDS: Calcium Carb/Vitamin D 1 TABLET Tablet PO (11:20)
[2018-10-30] MEDS: guaiFENesin 1,200 MG Tablet 1200 MG PO ×2 (11:20→21:54)
[2018-10-30] MEDS: Oseltamivir Phosphate 30 MG Capsule PO ×2 (11:21→21:54)
--- NOTE | 2018-10-30 12:21 | RAD_ITS ---
STUDY: X-RAY CHEST REASON FOR EXAM: Female, 78 years old. Shortness of breath, wheezing. TECHNIQUE: Upright AP and lateral views of the chest. A portion of the anterior chest is again obscured by the patient's overlapping upper arms. COMPARISON: Upright AP and lateral chest x-ray October 28, 2018. FINDINGS: There is borderline improved aeration in the lung bases with some persistent stranding of subsegmental atelectasis, chronic peribronchial inflammatory change or residual venous congestion in the right base. There is no demonstrated pleural abnormality. There is stable moderate cardiac enlargement. There is stable widening of the mediastinum that could reflect a degree of venous congestion. Normal visualized biapical pulmonary arteries. Normal visualized aortic arch and descending thoracic aorta. There is stable reversal of the normal kyphosis of the thoracic spine, resulting in a narrowed anterior posterior diameter of the chest that may augment the apparent cardiac enlargement on the frontal image. 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 There is no demonstrated abnormality of the visualized soft tissue structures of the upper abdomen. RAD/Chest PA and Lateral IMPRESSION: 1. Stable cardiac enlargement and mediastinal widening, both which may be augmented by the narrowed central anterior to posterior diameter of the chest in this patient with a mild thoracic lordosis. 2. Improved basilar aeration with residual subsegmental atelectasis, chronic peribronchial thickening, or congestive change in the right base. Electronically Signed: Christopher Poole MD at 14:52 EST , Service support ,
--- NOTE | 2018-10-30 15:43 | PCM.PN.HOSP ---
Patient Problems: Active and Suspected Problems Acute congestive heart failure (Acute) Subjective: Patient is still complaining of chest congestion and not able to cough mucus. Chest x-ray was repeated and shows improved aeration in the lung bases with some persistent stranding of subsegmental atelectasis. chronic peribronchial thickening No fever. No tachypnea. Pulse ox 95% oxygen on 2 L of oxygen Vitals/I&O's: Vital Signs Temp Pulse Resp BP Pulse Ox 98.1 F 104 H 18 119/71 95 10/30/18 14:50 10/30/18 14:50 10/30/18 14:50 10/30/18 14:50 10/30/18 14:50 Oxygen Flow Rate (L/min) 2 Oxygen Delivery Method Nasal Cannula Weight: 198 lb 6.656 oz Body Mass Index (BMI) 39.8 Intake and Output for Last 24 Hours 10/28/18 10/29/18 10/30/18 23:59 23:59 23:59 Intake Total 2080 / 2080 541 / 541 891 / 891 Output Total 1550 / 1550 1025 / 1025 675 / 675 Balance 530 / 530 -484 / -484 216 / 216 General: Alert, Oriented x3, Cooperative HEENT: Atraumatic, PERRLA, EOMI, Normocephalic Neck: Supple, No JVD, Negative Carotid Bruits Lungs: Diminished - Air entry diminished in bilateral lung bases., Rhonchi - Coarse rhonchi present, Wheezes Cardiovascular: Regular rate, Regular Rhythm, Normal S1, Normal S2, No murmurs, Tachycardic Abdomen: Bowel Sounds Present, Soft, Non Tender, Non-Distended Extremities: Capillary Refill Less than 3 Seconds, Edema Skin: No rashes, No breakdown Musculoskeletal: No Tenderness to Palpation of Joints or Extremities, Arthritic Changes, - - Missing distal digits in hands and feet suggestive of arthrogryposis. Kyphosis present. Neurological: Cranial nerves II-XII grossly intact, Deep Tendon Reflexes 2+/4 and Symmetrical, Neuro grossly intact Psych/Mental Status: Normal Affect, Appropriate Microbiology Past 72 Hours 10/26/18 01:15 Blood Culture (Wb) - Arm Left Blood Culture - Preliminary No growth in 48 hours. 10/25/18 01:05 Blood Culture (Wb) - Arm Left Blood Culture - Preliminary No growth in 48 hours. 10/26/18 13:30 Mucosa - Nasopharyngeal Respiratory Panel (PCR) - Final Influenzae B Human [place] 10/26/18 13:30 Mucosa - Nasopharyngeal Influenza Types A,B Direct FA (THERESA) - Final Laboratory Results 10/29/18 18:00: Sodium 129 L, Potassium 4.2, Chloride 88 L, Carbon Dioxide 30.0, Anion Gap 11, BUN 40 H, Creatinine 0.75, Estim Creat Clear Calc 66.94, Est GFR (MDRD) Af Amer 96, Est GFR (MDRD) Non-Af 80, BUN/Creatinine Ratio 53.3 H, Glucose 162 H, Calcium 8.5 10/30/18 07:50: Sodium 128 L, Potassium 3.7, Chloride 89 L, Carbon Dioxide 27.0, Anion Gap 12, BUN 40 H, Creatinine 0.59, Estim Creat Clear Calc 68.00, Est GFR (MDRD) Af Amer 128, Est GFR (MDRD) Non-Af 106, BUN/Creatinine Ratio 67.9 H, Glucose 142 H, Calcium 8.0 L 10/30/18 07:50: B-Natriuretic Peptide 66.1 Current Medications Albuterol Sulfate (Ventolin Aerosols) 2.5 mg INHALATION Q2H PRN PRN PRN Reason: SOB &/OR WHEEZING Last Admin: 10/30/18 04:26 Dose: 2.5 mg Albuterol/Ipratropium (Duoneb) 3 ml INHALATION Q4HWA.RT [facility] Last Admin: 10/30/18 15:05 Dose: 3 ml Aspirin (Aspirin, Baby) 81 mg PO DAILY@0800 [facility] Last Admin: 10/30/18 08:31 Dose: 81 mg Atorvastatin Calcium (Lipitor) 80 mg PO QHS [facility] Last Admin: 10/29/18 22:18 Dose: 80 mg Benzonatate (Tessalon Perle) 200 mg PO TID PRN PRN PRN Reason: cough Calcium/Vitamin D (Os-Guillermo 500mg + D) 1 tablet PO DAILY [facility] Last Admin: 10/30/18 11:20 Dose: 1 tablet Dibucaine (Dibucaine) 1 applic TOPICAL 4X/DAY PRN PRN PRN Reason: anal pain Enoxaparin Sodium (Lovenox) 40 mg SC DAILY [facility] Last Admin: 10/30/18 11:21 Dose: Not Given Guaifenesin (Mucinex) 1,200 mg PO BID [facility] Last Admin: 10/30/18 11:20 Dose: 1,200 mg Sodium Chloride () 250 mls @ 15 mls/hr IV .[id number] PRN PRN Reason: SALINE FLUSH Last Admin: 10/26/18 17:14 Dose: 15 mls/hr Methylprednisolone (Solu-Medrol) 40 mg IV Q8 [facility] Last Admin: 10/30/18 14:54 Dose: 40 mg Oseltamivir Phosphate (Tamiflu) 30 mg PO BID [facility] Stop: 10/31/18 22:01 Last Admin: 10/30/18 11:21 Dose: 30 mg Sodium Chloride () 5 - 15 ml IV UD PRN PRN Reason: SALINE FLUSH Last Admin: 10/30/18 14:55 Dose: 15 ml Medical Necessity - Tobacco Use Smoking Status: Never smoker Assessment/Plan All Active Problems Hypoxia (Acute) Pneumonia (Acute) Sepsis (Acute) Shortness of breath (Acute) Acute congestive heart failure (Acute) This is a 78y/o female with PMHx of COPD/pulmonary hypertension, chronic diastolic CHF comes in with worsening SOB and has been managed as acute on chronic diastolic CHF and acute COPD exacerbation. Patient has symptoms of shortness of breath, sore throat, postnasal drip and URI symptoms 1. Acute hypoxic respiratory failure CHF and acute COPD exacerbation, not on oxygen at home, continue on home oxygen, SPO2 more than 92% 2. Acute on chronic diastolic CHF: Echo in January 2018 reported as EF 75%, stage 1 diastolic dysfunction, on fluid restriction, daily weights. Initially, Lasix was increased secondary to pulmonary congestion with chest x-ray findings of interstitial edema and congestion but is discontinued. Consider beta-malina when patient is more euvolemic. Patient also has moderate pulmonary hypertension with RVSP 54 mmHg. Normal tricuspid valve. Trivial TR. Normal left atrium. Right atrium mildly enlarged. 3. CKD stage III with mild proteinuria, mild hyperkalemia and hyponatremia: Turning And Beading Machine Operator Dr. Chu was consulted. UA was done by cupola hoist operator. UA shows protein 30, LE 500, RBC 5200, WBC 0-5, random sodium 7 and creatinine 30. Specific gravity 1.01 normal. Patient was given Kayexalate for K5.8. Repeat K is 4.7. Potassium corrected. Sodium is still low. Turning And Beading Machine Operator recommended to continue IV fluid 3. Acute COPD exacerbation, probably secondary to influenza B and human [place] viral bronchitis: Patient has seen Dr. Barrow before, not following with bulwark carpenter, on IV solumedrol, breathing treatments, oral azithromycin, incentive spirometer. Continue Tamiflu as patient still comes in 48 hours window. Discussed with the respiratory therapist for chest physiotherapy/vest therapy. Needs pulmonary hygiene 4. Hypertension, controlled, on Lisinopril, continue to monitor vitals 5. Hyperlipidemia, on statin 6. DVT PPx- Lovenox SC Chest X-Ray 10/30/18 12:21 IMPRESSION: 1. Stable cardiac enlargement and mediastinal widening, both which may be augmented by the narrowed central anterior to posterior diameter of the chest in this patient with a mild thoracic lordosis. 2. Improved basilar aeration with residual subsegmental atelectasis, chronic peribronchial thickening, or congestive change in the right base. Microbiology Past 72 Hours 10/26/18 01:15 Blood Culture (Wb) - Arm Left Blood Culture - Preliminary No growth in 48 hours. 10/25/18 01:05 Blood Culture (Wb) - Arm Left Blood Culture - Preliminary No growth in 48 hours. 10/26/18 13:30 Mucosa - Nasopharyngeal Respiratory Panel (PCR) - Final Influenzae B Human [place] 10/26/18 13:30 Mucosa - Nasopharyngeal Influenza Types A,B Direct FA (THERESA) - Final Microbiology Past 72 Hours 10/26/18 01:15 Blood Culture (Wb) - Arm Left Blood Culture - Preliminary No growth in 48 hours. 10/25/18 01:05 Blood Culture (Wb) - Arm Left Blood Culture - Preliminary No growth in 48 hours. 10/26/18 13:30 Mucosa - Nasopharyngeal Respiratory Panel (PCR) - Final Influenzae B Human [place] 10/26/18 13:30 Mucosa - Nasopharyngeal Influenza Types A,B Direct FA (THERESA) - Final Laboratory Results 10/29/18 18:00: Sodium 129 L, Potassium 4.2, Chloride 88 L, Carbon Dioxide 30.0, Anion Gap 11, BUN 40 H, Creatinine 0.75, Estim Creat Clear Calc 66.94, Est GFR (MDRD) Af Amer 96, Est GFR (MDRD) Non-Af 80, BUN/Creatinine Ratio 53.3 H, Glucose 162 H, Calcium 8.5 10/30/18 07:50: Sodium 128 L, Potassium 3.7, Chloride 89 L, Carbon Dioxide 27.0, Anion Gap 12, BUN 40 H, Creatinine 0.59, Estim Creat Clear Calc 68.00, Est GFR (MDRD) Af Amer 128, Est GFR (MDRD) Non-Af 106, BUN/Creatinine Ratio 67.9 H, Glucose 142 H, Calcium 8.0 L 10/30/18 07:50: B-Natriuretic Peptide 66.1 Laboratory Results 10/29/18 05:45: Sodium 126 L, Potassium 5.8 H, Chloride 93 L, Carbon Dioxide 24.0, Anion Gap 9, BUN 41 H, Creatinine 0.72, Estim Creat Clear Calc 66.87, Est GFR (MDRD) Af Amer 102, Est GFR (MDRD) Non-Af 84, BUN/Creatinine Ratio 57.1 H, Glucose 176 H, Calcium 8.3 L, Magnesium 1.9 10/29/18 13:02: Sodium 130 L, Potassium 4.7, Chloride 91 L, Carbon Dioxide 29.0, Anion Gap 10, BUN 42 H, Creatinine 0.86, Estim Creat Clear Calc 77.84, Est GFR (MDRD) Af Amer 82, Est GFR (MDRD) Non-Af 68, BUN/Creatinine Ratio 48.6 H, Glucose 175 H, Calcium 8.6 10/29/18 13:20: Urine Color Yellow, Urine Clarity Sl. Cloudy, Urine pH 6.0, Ur Specific [place] 1.010, Urine Protein 30 H, Urine Glucose (UA) Normal, Urine Ketones Negative, Urine Occult Blood 250 H, Urine Nitrite Negative, Urine Bilirubin Negative, Urine Urobilinogen Normal, Ur Leukocyte Esterase 500 H, Urine RBC 50-100 SEEN, Urine WBC 0-5 SEEN, Ur Squamous Epith Cells 0-5 SEEN, Urine Bacteria 1+, Urine Mucus 1+ 10/29/18 13:20: Ur Random Sodium 7 10/29/18 13:20: Urine Creatinine 30.40 Active Medications Albuterol Sulfate (Ventolin Aerosols) 2.5 mg INHALATION Q2H PRN PRN PRN Reason: SOB &/OR WHEEZING Last Admin: 10/29/18 01:00 Dose: 2.5 mg Albuterol/Ipratropium (Duoneb) 3 ml INHALATION Q4HWA.RT [id number] Last Admin: 10/29/18 14:55 Dose: 3 ml Aspirin (Aspirin, Baby) 81 mg PO DAILY@0800 [facility] Last Admin: 10/29/18 08:52 Dose: 81 mg Atorvastatin Calcium (Lipitor) 80 mg PO QHS [facility] Last Admin: 10/28/18 21:06 Dose: 80 mg Benzonatate (Tessalon Perle) 200 mg PO TID [facility] Last Admin: 10/29/18 14:34 Dose: 200 mg Calcium/Vitamin D (Os-Guillermo 500mg + D) 1 tablet PO DAILY [facility] Last Admin: 10/29/18 08:52 Dose: 1 tablet Dibucaine (Dibucaine) 1 applic TOPICAL 4X/DAY PRN PRN PRN Reason: anal pain Enoxaparin Sodium (Lovenox) 40 mg SC DAILY [facility] Last Admin: 10/29/18 08:52 Dose: Not Given Guaifenesin (Mucinex) 1,200 mg PO BID [facility] Last Admin: 10/29/18 12:38 Dose: 1,200 mg Sodium Chloride () 250 mls @ 15 mls/hr IV .[id number] PRN PRN Reason: SALINE FLUSH Last Admin: 10/26/18 17:14 Dose: 15 mls/hr Methylprednisolone (Solu-Medrol) 40 mg IV Q8 [facility] Last Admin: 10/29/18 14:34 Dose: 40 mg Oseltamivir Phosphate (Tamiflu) 30 mg PO BID [facility] Stop: 10/31/18 22:01 Last Admin: 10/29/18 08:52 Dose: 30 mg Sodium Chloride () 5 - 15 ml IV UD PRN PRN Reason: SALINE FLUSH Last Admin: 10/29/18 05:42 Dose: 10 ml Code Visit Inpatient E&M: [id number] [facility] Hosp L3
--- NOTE | 2018-10-30 15:46 | CPS ---
pep therapy performed post aerosol. Pt did not want vest therapy. pt states she will do pep.
--- NOTE | 2018-10-30 15:47 | PN_ITS ---
Patient Problems: Active and Suspected Problems Acute congestive heart failure (Acute) Subjective: Patient is still complaining of chest congestion and not able to cough mucus. Chest x-ray was repeated and shows improved aeration in the lung bases with some persistent stranding of subsegmental atelectasis. chronic peribronchial thickening No fever. No tachypnea. Pulse ox 95% oxygen on 2 L of oxygen Vitals/I&O's: Vital Signs Temp Pulse Resp BP Pulse Ox 98.1 F 104 H 18 119/71 95 10/30/18 14:50 10/30/18 14:50 10/30/18 14:50 10/30/18 14:50 10/30/18 14:50 Oxygen Flow Rate (L/min) 2 Oxygen Delivery Method Nasal Cannula Weight: 198 lb 6.656 oz Body Mass Index (BMI) 39.8 Intake and Output for Last 24 Hours 10/28/18 10/29/18 10/30/18 23:59 23:59 23:59 Intake Total 2080 / 2080 541 / 541 891 / 891 Output Total 1550 / 1550 1025 / 1025 675 / 675 Balance 530 / 530 -484 / -484 216 / 216 General: Alert, Oriented x3, Cooperative HEENT: Atraumatic, PERRLA, EOMI, Normocephalic Neck: Supple, No JVD, Negative Carotid Bruits Lungs: Diminished - Air entry diminished in bilateral lung bases., Rhonchi - Coarse rhonchi present, Wheezes Cardiovascular: Regular rate, Regular Rhythm, Normal S1, Normal S2, No murmurs, Tachycardic Abdomen: Bowel Sounds Present, Soft, Non Tender, Non-Distended Extremities: Capillary Refill Less than 3 Seconds, Edema Skin: No rashes, No breakdown Musculoskeletal: No Tenderness to Palpation of Joints or Extremities, Arthritic Changes, - - Missing distal digits in hands and feet suggestive of arthrogryposis. Kyphosis present. Neurological: Cranial nerves II-XII grossly intact, Deep Tendon Reflexes 2+/4 and Symmetrical, Neuro grossly intact Psych/Mental Status: Normal Affect, Appropriate Microbiology Past 72 Hours 10/26/18 01:15 Blood Culture (Wb) - Arm Left Blood Culture - Preliminary No growth in 48 hours. 10/25/18 01:05 Blood Culture (Wb) - Arm Left Blood Culture - Preliminary No growth in 48 hours. 10/26/18 13:30 Mucosa - Nasopharyngeal Respiratory Panel (PCR) - Final Influenzae B Human [place] 10/26/18 13:30 Mucosa - Nasopharyngeal Influenza Types A,B Direct FA (THERESA) - Final Laboratory Results 10/29/18 18:00: Sodium 129 L, Potassium 4.2, Chloride 88 L, Carbon Dioxide 30.0, Anion Gap 11, BUN 40 H, Creatinine 0.75, Estim Creat Clear Calc 66.94, Est GFR (MDRD) Af Amer 96, Est GFR (MDRD) Non-Af 80, BUN/Creatinine Ratio 53.3 H, Glucose 162 H, Calcium 8.5 10/30/18 07:50: Sodium 128 L, Potassium 3.7, Chloride 89 L, Carbon Dioxide 27.0, Anion Gap 12, BUN 40 H, Creatinine 0.59, Estim Creat Clear Calc 68.00, Est GFR (MDRD) Af Amer 128, Est GFR (MDRD) Non-Af 106, BUN/Creatinine Ratio 67.9 H, Glucose 142 H, Calcium 8.0 L 10/30/18 07:50: B-Natriuretic Peptide 66.1 Current Medications Albuterol Sulfate (Ventolin Aerosols) 2.5 mg INHALATION Q2H PRN PRN PRN Reason: SOB &/OR WHEEZING Last Admin: 10/30/18 04:26 Dose: 2.5 mg Albuterol/Ipratropium (Duoneb) 3 ml INHALATION Q4HWA.RT [facility] Last Admin: 10/30/18 15:05 Dose: 3 ml Aspirin (Aspirin, Baby) 81 mg PO DAILY@0800 [facility] Last Admin: 10/30/18 08:31 Dose: 81 mg Atorvastatin Calcium (Lipitor) 80 mg PO QHS [facility] Last Admin: 10/29/18 22:18 Dose: 80 mg Benzonatate (Tessalon Perle) 200 mg PO TID PRN PRN PRN Reason: cough Calcium/Vitamin D (Os-Guillermo 500mg + D) 1 tablet PO DAILY [facility] Last Admin: 10/30/18 11:20 Dose: 1 tablet Dibucaine (Dibucaine) 1 applic TOPICAL 4X/DAY PRN PRN PRN Reason: anal pain Enoxaparin Sodium (Lovenox) 40 mg SC DAILY [facility] Last Admin: 10/30/18 11:21 Dose: Not Given Guaifenesin (Mucinex) 1,200 mg PO BID [facility] Last Admin: 10/30/18 11:20 Dose: 1,200 mg Sodium Chloride () 250 mls @ 15 mls/hr IV .[id number] PRN PRN Reason: SALINE FLUSH Last Admin: 10/26/18 17:14 Dose: 15 mls/hr Methylprednisolone (Solu-Medrol) 40 mg IV Q8 [facility] Last Admin: 10/30/18 14:54 Dose: 40 mg Oseltamivir Phosphate (Tamiflu) 30 mg PO BID [facility] Stop: 10/31/18 22:01 Last Admin: 10/30/18 11:21 Dose: 30 mg Sodium Chloride () 5 - 15 ml IV UD PRN PRN Reason: SALINE FLUSH Last Admin: 10/30/18 14:55 Dose: 15 ml Medical Necessity - Tobacco Use Smoking Status: Never smoker Assessment/Plan All Active Problems Hypoxia (Acute) Pneumonia (Acute) Sepsis (Acute) Shortness of breath (Acute) Acute congestive heart failure (Acute) This is a 78y/o female with PMHx of COPD/pulmonary hypertension, chronic diastolic CHF comes in with worsening SOB and has been managed as acute on chronic diastolic CHF and acute COPD exacerbation. Patient has symptoms of shortness of breath, sore throat, postnasal drip and URI symptoms 1. Acute hypoxic respiratory failure CHF and acute COPD exacerbation, not on oxygen at home, continue on home oxygen, SPO2 more than 92% 2. Acute on chronic diastolic CHF: Echo in January 2018 reported as EF 75%, stage 1 diastolic dysfunction, on fluid restriction, daily weights. Initially, Lasix was increased secondary to pulmonary congestion with chest x-ray findings of interstitial edema and congestion but is discontinued. Consider beta-malina when patient is more euvolemic. Patient also has moderate pulmonary hypertension with RVSP 54 mmHg. Normal tricuspid valve. Trivial TR. Normal left atrium. Right atrium mildly enlarged. 3. CKD stage III with mild proteinuria, mild hyperkalemia and hyponatremia: Equalizer Operator Dr. Chu was consulted. UA was done by pleating machine operator. UA shows protein 30, LE 500, RBC 5200, WBC 0-5, random sodium 7 and creatinine 30. Specific gravity 1.01 normal. Patient was given Kayexalate for K5.8. Repeat K is 4.7. Potassium corrected. Sodium is still low. Equalizer Operator recommended to continue IV fluid 3. Acute COPD exacerbation, probably secondary to influenza B and human [place] viral bronchitis: Patient has seen Dr. Barrow before, not following with dryer and washer mechanic, on IV solumedrol, breathing treatments, oral azithromycin, incentive spirometer. Continue Tamiflu as patient still comes in 48 hours window. Discussed with the respiratory therapist for chest physiotherapy/vest therapy. Needs pulmonary hygiene 4. Hypertension, controlled, on Lisinopril, continue to monitor vitals 5. Hyperlipidemia, on statin 6. DVT PPx- Lovenox SC Chest X-Ray 10/30/18 12:21 IMPRESSION: 1. Stable cardiac enlargement and mediastinal widening, both which may be augmented by the narrowed central anterior to posterior diameter of the chest in this patient with a mild thoracic lordosis. 2. Improved basilar aeration with residual subsegmental atelectasis, chronic peribronchial thickening, or congestive change in the right base. Microbiology Past 72 Hours 10/26/18 01:15 Blood Culture (Wb) - Arm Left Blood Culture - Preliminary No growth in 48 hours. 10/25/18 01:05 Blood Culture (Wb) - Arm Left Blood Culture - Preliminary No growth in 48 hours. 10/26/18 13:30 Mucosa - Nasopharyngeal Respiratory Panel (PCR) - Final Influenzae B Human [place] 10/26/18 13:30 Mucosa - Nasopharyngeal Influenza Types A,B Direct FA (THERESA) - Final Microbiology Past 72 Hours 10/26/18 01:15 Blood Culture (Wb) - Arm Left Blood Culture - Preliminary No growth in 48 hours. 10/25/18 01:05 Blood Culture (Wb) - Arm Left Blood Culture - Preliminary No growth in 48 hours. 10/26/18 13:30 Mucosa - Nasopharyngeal Respiratory Panel (PCR) - Final Influenzae B Human [place] 10/26/18 13:30 Mucosa - Nasopharyngeal Influenza Types A,B Direct FA (THERESA) - Final Laboratory Results 10/29/18 18:00: Sodium 129 L, Potassium 4.2, Chloride 88 L, Carbon Dioxide 30.0, Anion Gap 11, BUN 40 H, Creatinine 0.75, Estim Creat Clear Calc 66.94, Est GFR (MDRD) Af Amer 96, Est GFR (MDRD) Non-Af 80, BUN/Creatinine Ratio 53.3 H, Glucose 162 H, Calcium 8.5 10/30/18 07:50: Sodium 128 L, Potassium 3.7, Chloride 89 L, Carbon Dioxide 27.0, Anion Gap 12, BUN 40 H, Creatinine 0.59, Estim Creat Clear Calc 68.00, Est GFR (MDRD) Af Amer 128, Est GFR (MDRD) Non-Af 106, BUN/Creatinine Ratio 67.9 H, Gluc ose 142 H, Calcium 8.0 L 10/30/18 07:50: B-Natriuretic Peptide 66.1 Laboratory Results 10/29/18 05:45: Sodium 126 L, Potassium 5.8 H, Chloride 93 L, Carbon Dioxide 24.0, Anion Gap 9, BUN 41 H, Creatinine 0.72, Estim Creat Clear Calc 66.87, Est GFR (MDRD) Af Amer 102, Est GFR (MDRD) Non-Af 84, BUN/Creatinine Ratio 57.1 H, Glucose 176 H, Calcium 8.3 L, Magnesium 1.9 10/29/18 13:02: Sodium 130 L, Potassium 4.7, Chloride 91 L, Carbon Dioxide 29.0, Anion Gap 10, BUN 42 H, Creatinine 0.86, Estim Creat Clear Calc 77.84, Est GFR (MDRD) Af Amer 82, Est GFR (MDRD) Non-Af 68, BUN/Creatinine Ratio 48.6 H, Glucose 175 H, Calcium 8.6 10/29/18 13:20: Urine Color Yellow, Urine Clarity Sl. Cloudy, Urine pH 6.0, Ur Specific [place] 1.010, Urine Protein 30 H, Urine Glucose (UA) Normal, Urine Ketones Negative, Urine Occult Blood 250 H, Urine Nitrite Negative, Urine Bilirubin Negative, Urine Urobilinogen Normal, Ur Leukocyte Esterase 500 H, Urine RBC 50-100 SEEN, Urine WBC 0-5 SEEN, Ur Squamous Epith Cells 0-5 SEEN, Urine Bacteria 1+, Urine Mucus 1+ 10/29/18 13:20: Ur Random Sodium 7 10/29/18 13:20: Urine Creatinine 30.40 Active Medications Albuterol Sulfate (Ventolin Aerosols) 2.5 mg INHALATION Q2H PRN PRN PRN Reason: SOB &/OR WHEEZING Last Admin: 10/29/18 01:00 Dose: 2.5 mg Albuterol/Ipratropium (Duoneb) 3 ml INHALATION Q4HWA.RT [id number] Last Admin: 10/29/18 14:55 Dose: 3 ml Aspirin (Aspirin, Baby) 81 mg PO DAILY@0800 [facility] Last Admin: 10/29/18 08:52 Dose: 81 mg Atorvastatin Calcium (Lipitor) 80 mg PO QHS [facility] Last Admin: 10/28/18 21:06 Dose: 80 mg Benzonatate (Tessalon Perle) 200 mg PO TID [facility] Last Admin: 10/29/18 14:34 Dose: 200 mg Calcium/Vitamin D (Os-Guillermo 500mg + D) 1 tablet PO DAILY [facility] Last Admin: 10/29/18 08:52 Dose: 1 tablet Dibucaine (Dibucaine) 1 applic TOPICAL 4X/DAY PRN PRN PRN Reason: anal pain Enoxaparin Sodium (Lovenox) 40 mg SC DAILY [facility] Last Admin: 10/29/18 08:52 Dose: Not Given Guaifenesin (Mucinex) 1,200 mg PO BID [facility] Last Admin: 10/29/18 12:38 Dose: 1,200 mg Sodium Chloride () 250 mls @ 15 mls/hr IV .[id number] PRN PRN Reason: SALINE FLUSH Last Admin: 10/26/18 17:14 Dose: 15 mls/hr Methylprednisolone (Solu-Medrol) 40 mg IV Q8 [facility] Last Admin: 10/29/18 14:34 Dose: 40 mg Oseltamivir Phosphate (Tamiflu) 30 mg PO BID [facility] Stop: 10/31/18 22:01 Last Admin: 10/29/18 08:52 Dose: 30 mg Sodium Chloride () 5 - 15 ml IV UD PRN PRN Reason: SALINE FLUSH Last Admin: 10/29/18 05:42 Dose: 10 ml Code Visit Inpatient E&M: [id number] [facility] Hosp L3
[2018-10-30] MEDS: Ceftriaxone 1 GM/50 ML BAG IV (18:24)
[2018-10-30] MEDS: Atorvastatin Calcium 80 MG Tablet PO (21:54)
[2018-10-31] VITALS (10 sets, daily range): BP systolic 120–138; BP diastolic 55–68; PULSE 81–94; RESP 15–18; TEMP 35.8–36.6; O2SAT 86–97
[2018-10-31 06:25] LABS: Anion Gap 10 (5-15); BUN 35 mg/dL (7-18); BUN/Creat Ratio 65.9 RATIO (10-20); Calcium,Total 8.1 mg/dL (8.5-10.1); Chloride 90 mmol/L (98-107); Creatinine, Serum 0.53 mg/dL (0.55-1.02); EST Glomerular Filtration Rate 119 mL/min (>60); Est Glom Filt Rate - Afr Amer 144 mL/min (>60); Glucose 153 mg/dL (74-106); Potassium 4.1 mmol/L (3.5-5.1); Sodium Level 128 mmol/L (136-145)
[2018-10-31 06:36] LABS: Absolute Lymphocyte Count 0.47 X10^3/ul (0.83-4.51); Basophil# 0.01 X10^3/uL; Basophil% 0.1 % (0-1); Eosinophil# 0.01 X10^3/uL; Eosinophils% 0.1 % (0-5); Hematocrit 33.1 % (37-47); Hemoglobin 10.8 g/dl (12.0-15.0); Lymphocyte # 0.47 X10^3/ul (4.0); Lymphocyte % 5.2 % (19-41); Mean Corp Hgb Conc 32.6 g/gl (32-36); Mean Corpuscular Volume 91.9 fL (81-99); Mean Platelet Vol. 9.7 fl (6.2-12.0); Monocyte# 0.51 X10^3/uL; Monocyte% 5.6 % (0-10); Neutrophil # 8.03 X10^3/uL (2.7-7.7); Neutrophil % 88.3 % (47-70); Platelet Count 328 K/mm3 (150-450); RBC Distribution Width CV 13.3 % (11.6-14.6); RBC Distribution Width SD 43.4 fl (35.1-43.9); White Blood Count 9.1 K/mm3 (4.4-11.0)
[2018-10-31 06:37] LABS: Differential Indicated SCAN CRITERIA MET; POSITIVE COUNT NO; POSITIVE DIFFERENTIAL YES; POSITIVE MORPHOLOGY NO
[2018-10-31] MEDS: Ipratropium/Albuterol Sulfate 3 ML AMPUL.NEB INHALATION ×3 (06:51→14:50)
[2018-10-31] MEDS: Calcium Carb/Vitamin D 1 TABLET Tablet PO (09:30)
[2018-10-31] MEDS: Aspirin 81 MG TAB.CHEW PO (09:30)
[2018-10-31] MEDS: guaiFENesin 1,200 MG Tablet 1200 MG PO (09:30)
[2018-10-31] MEDS: Oseltamivir Phosphate 30 MG Capsule PO (09:31)
[2018-10-31] MEDS: Ceftriaxone 1 GM/50 ML BAG IV (09:31)
--- NOTE | 2018-10-31 10:25 | CASEMGMT ---
This RN CM to room to speak with pt regarding preference for Home oxygen DME company, if needed at discharge. Pt states she would like [employer], if home oxygen needed. This RN CM also inquired about HHC for pt at this time and pt declined at this time. Pt is aware that she can call PCP if she decides she needs HHC after discharge to home, voices understanding. Pt/ voice no further questions/concerns/needs at this time. [place] RN CM
--- NOTE | 2018-10-31 10:28 | PCM.PN.REN ---
Patient Problems: Active and Suspected Problems Acute congestive heart failure (Acute) Subjective: renal fxn stable, hyperkalemia resolved. Remains hyponatremic with moist cough. - Physical Exam General: Alert, Oriented x3, Cooperative, No apparent distress Lungs: Rhonchi, Wheezes Cardiovascular: Regular rate Abdomen: Bowel Sounds Present, Soft, Non Tender, Obese Extremities: No edema Musculoskeletal: - - deformity from arthrogryposis. Neurological: - - no tremor Psych/Mental Status: Normal Affect, Appropriate, Alert and oriented to time, place, person, mood and affect Vital Signs Temp Pulse Resp BP Pulse Ox 96.5 F L 86 18 128/68 H 94 10/31/18 06:58 10/31/18 06:58 10/31/18 06:58 10/31/18 06:58 10/31/18 06:58 Oxygen Flow Rate (L/min) 2 Oxygen Delivery Method Nasal Cannula Weight: 90.3 kg Body Mass Index (BMI) 39.8 Intake and Output for Last 24 Hours 10/29/18 10/30/18 10/31/18 23:59 23:59 23:59 Intake Total 541 / 541 1131 / 1131 595 / 595 Output Total 1025 / 1025 1150 / 1150 250 / 250 Balance -484 / -484 - / -19 345 / 345 Microbiology Past 72 Hours 10/25/18 01:05 Blood Culture - Final Blood Culture (Wb) - Arm Left No growth in 5 days. 10/26/18 01:15 Blood Culture - Final Blood Culture (Wb) - Arm Left No growth in 5 days. 10/30/18 13:20 Streptococcus pneumoniae Antigen (M - Final Interface Orders 10/30/18 13:20 Legionella Antigen - Final Interface Orders Laboratory Tests Past 24 Hrs 10/31/18 10/31/18 05:34 05:34 WBC 9.1 RBC 3.60 L Hgb 10.8 L Hct 33.1 L MCV 91.9 MCH 30.0 MCHC 32.6 RDW 13.3 RDW Differential 43.4 Plt Count 328 MPV 9.7 Immature Gran % (Auto) 0.700 Neut % (Auto) 88.3 H Lymph % (Auto) 5.2 L [place] % (Auto) 5.6 Eos % (Auto) 0.1 Baso % (Auto) 0.1 Absolute Neuts (auto) 8.0 H Absolute Lymphs (auto) 0.47 L Total Counted Not Reportable Sodium 128 L Potassium 4.1 Chloride 90 L Carbon Dioxide 28.0 Anion Gap 10 BUN 35 H Creatinine 0.53 L Estim Creat Clear Calc 68.00 Est GFR (MDRD) Af Amer 144 Est GFR (MDRD) Non-Af 119 BUN/Creatinine Ratio 65.9 H Glucose 153 H Calcium 8.1 L Medical Necessity - Tobacco Use Smoking Status: Never smoker Assessment/Plan All Active Problems Hypoxia (Acute) Pneumonia (Acute) Sepsis (Acute) Shortness of breath (Acute) Acute congestive heart failure (Acute) 1. Hyponatremia low urine sodium. Continue iv fluids. Echo with normal cardiac function. Hold lasix 2. Hyperkalemia resolved with Kayexalate 3. SOB, Acute hypoxemia with wheezing due to influenza B and human metapneumovirus. BNP low at 68. Refused flu shot for years. 4. Hx solitary kidney disease s/p rt nephrectomy for chronic infection. 5. Arthrogryposis with debilitation, limited ROM
--- NOTE | 2018-10-31 11:16 | DCINST_ITS ---
- Discharge Diagnoses Current Active Problems: Current Active and Chronic Problems Acute congestive heart failure (Acute) You will use the following diet at home:: Cardiac Discharge Activity: May Not Drive Weight Bearing Status: Weight bearing as tolerated Call your doctor if you observe: Fever of 101 or Higher, Inability to urinate, Inability to have a bowel movement, Shortness of breath, Fainting spells, Swelling in the ankles, Chest pain, Increased palpitations (irregular heartbeat) Allergies/Adverse Reactions: Allergies No Known Allergies Allergy (Verified 01/26/18 19:43) Medications to take at Discharge Aspirin [Aspirin, Baby] 81 mg PO DAILY@0800 07/12/15 Atorvastatin Calcium [Lipitor] 80 mg PO QHS 07/12/15 Calcium Carb/Vitamin D [Caltrate-600 With Vit D Tab] 1 tab PO DAILY 07/12/15 Lisinopril [Zestril] 5 mg PO DAILY 07/12/15 Dibucaine [Nupercainal] 56.7 gm RC 4X/DAY PRN PRN #1 oint...g. 09/28/15 Albuterol Inhaler [Ventolin Hfa] 2 puff INHALATION Q4H PRN PRN #1 inhaler 10/31/18 Amoxicillin 500 mg PO TID #15 tablet 10/31/18 Benzonatate [Tessalon Perle] 200 mg PO TID PRN PRN capsule 10/31/18 Furosemide 40 mg PO DAILY #0 10/31/18 Guaifenesin [Mucinex] 1,200 mg PO BID #14 tablet 10/31/18 Oseltamivir Phosphate [Tamiflu] 30 mg PO X1 #1 capsule 10/31/18 The following prescriptions were given: Albuterol Inhaler [Ventolin Hfa] 2 puff INHALATION Q4H PRN PRN #1 inhaler PRN Reason: Shortness Of Breath Oseltamivir Phosphate [Tamiflu] 30 mg PO X1 #1 capsule Guaifenesin [Mucinex] 1,200 mg PO BID #14 tablet Amoxicillin 500 mg PO TID #15 tablet Primary Care Physician: Momo Carvajal Chi, MD [Primary Care Provider] - Please follow up with your Primary Care Physician in: On Sat, 11/03 with BMP for hyponatremia Test Results: Test results from this visit will be discussed in further detail at your follow- up appointment, if applicable. Please Follow Up With: Louise Chu, DO When: In 2 weeks for single kidney with hyponatremia
--- NOTE | 2018-10-31 11:17 | DS.PCM_ITS ---
Discharge Date and Diagnosis - Problem List Patient Problems: Active and Suspected Problems Acute congestive heart failure (Acute) Date of Admission: 10/26/18 Date of Discharge: 10/31/18 - Primary Discharge Diagnosis Active and Suspected Problems Acute congestive heart failure (Acute) Acute COPD exacerbation with viral bronchitis influenza B and human [place] pneumo virus with suspicion of possible bacterial superinfection - Secondary Discharge Diagnosis Chronic Problems HTN (hypertension) (Chronic) HLD (hyperlipidemia) (Chronic) Arthrogryposis (Chronic) Single kidney (Chronic) Morbid obesity with BMI of 40.0-44.9, adult (Chronic) Hospital Course and Treatment Summary of Care Provided: This is a 78y/o female with PMHx of COPD/pulmonary hypertension, chronic diastolic CHF comes in with worsening SOB and has been managed as acute on chronic diastolic CHF and acute COPD exacerbation. Patient has symptoms of vandana rtness of breath, sore throat, postnasal drip and URI symptoms 1. Acute hypoxic respiratory failure CHF and acute COPD exacerbation, not on oxygen at home, continue on home oxygen, SPO2 more than 92% 2. Acute on chronic diastolic CHF: Echo in January 2018 reported as EF 75%, stage 1 diastolic dysfunction, on fluid restriction, daily weights. Initially, Lasix was increased secondary to pulmonary congestion with chest x-ray findings of interstitial edema and congestion but is discontinued. Consider beta-malina as outpatient when patient is more euvolemic and COPD exacerbation/acute bronchitis resolved. Patient also has moderate pulmonary hypertension with RVSP 54 mmHg. Normal tricuspid valve. Trivial TR. Normal left atrium. Right atrium mildly enlarged. 3. CKD stage III with mild proteinuria, mild hyperkalemia and hyponatremia: Advisor To [employer] In [employer] Dr. Chu was consulted. UA was done by skate maker. UA shows protein 30, LE 500, RBC 5200, WBC 0-5, random sodium 7 and creatinine 30. Specific gravity 1.01 normal. Patient was given Kayexalate for K5.8. Repeat potassium is 4.1. Sodium is still low at 128. Advisor To [employer] In [employer] recommended to continue IV fluid. Patient wants to go home. Patient was advised follow-up BMP on 11/03/[address] Carvajal. This was discussed with skate maker Dr. Chu. 3. Acute COPD exacerbation, probably secondary to influenza B and human [place] v iral bronchitis: Patient has seen Dr. 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 Continue Tamiflu as patient still comes in 48 hours window. Discussed with the respiratory therapist for chest physiotherapy/vest therapy. Patient breathing is better and has cleared mucus and rattling sensation is better. Patient was started empirically on Rocephin yesterday because of chest x-ray finding of peribronchial thickening and suspicion of possible secondary bacterial infection after viral bronchitis. 4. Hypertension, controlled, on Lisinopril, continue to monitor vitals 5. Hyperlipidemia, on statin 6. DVT PPx- Lovenox SC. 7. Asymptomatic bacteriuria/colonization: Urine culture preliminary shows gram- positive cocci possible enterococcus species, 50,000-80,000. Discussed with the pharmacist. Patient denies lower urinary tract symptoms including burning micturition, increased urgency, frequency or retention before coming to the hospital. 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 Prescription sent to pharmacy. Patient has urethral catheter which was inserted when she came because of high risk of fall on going to bathroom because patient has weak legs and wears braces due to arthrogryposis. Discharge medication reconciliation done. Discharge follow-up instructions completed. Discharge process discussed with the patient. Total time spent, exact 35 minutes on discharge meds reconciliation, examination, review of imaging and blood test and discussion with the patient on follow-up instructions. Microbiology Past 72 Hours 10/30/18 13:20 Interface Orders Urine Culture - Preliminary GPC Poss Enterococcus sp 10/25/18 01:05 Blood Culture (Wb) - Arm Left Blood Culture - Final No growth in 5 days. 10/26/18 01:15 Blood Culture (Wb) - Arm Left Blood Culture - Final No growth in 5 days. 10/30/18 13:20 Interface Orders Streptococcus pneumoniae Antigen (M - Final 10/30/18 13:20 Interface Orders Legionella Antigen - Final Laboratory Results 10/31/18 05:34: WBC 9.1, RBC 3.60 L, Hgb 10.8 L, Hct 33.1 L, MCV 91.9, MCH 30.0, MCHC 32.6, RDW 13.3, RDW Differential 43.4, Plt Count 328, MPV 9.7, Immature Gran % (Auto) 0.700, Neut % (Auto) 88.3 H, Lymph % (Auto) 5.2 L, [place] % (Auto) 5.6, Eos % (Auto) 0.1, Baso % (Auto) 0.1, Absolute Neuts (auto) 8.0 H, Absolute Lymphs (auto) 0.47 L, Total Counted Not Reportable 10/31/18 05:34: Sodium 128 L, Potassium 4.1, Chloride 90 L, Carbon Dioxide 28.0, Anion Gap 10, BUN 35 H, Creatinine 0.53 L, Estim Creat Clear Calc 68.00, Est GFR (MDRD) Af Amer 144, Est GFR (MDRD) Non-Af 119, BUN/Creatinine Ratio 65.9 H, Glucose 153 H, Calcium 8.1 L Patient Problems: Active and Suspected Problems Acute congestive heart failure (Acute) - Physical Exam General: Alert, Oriented x3, Cooperative HEENT: Atraumatic, PERRLA, EOMI, Normocephalic Neck: Supple, No JVD, Negative Carotid Bruits Lungs: Clear to auscultation, Normal air movement, Diminished, - - Mucus rattling sound is better Cardiovascular: Regular rate, Regular Rhythm, Normal S1, Normal S2, No murmurs Abdomen: Bowel Sounds Present, Soft, Non Tender, Non-Distended, - - Urethral [place] catheter present. Extremities: No edema, Capillary Refill Less than 3 Seconds, Edema Skin: No rashes, No breakdown Musculoskeletal: No Tenderness to Palpation of Joints or Extremities, Arthritic Changes Neurological: Cranial nerves II-XII grossly intact, Deep Tendon Reflexes 2+/4 and Symmetrical, Neuro grossly intact Psych/Mental Status: Normal Affect, Appropriate Vital Signs Temp Pulse Resp BP Pulse Ox 96.5 F L 94 16 128/68 H 94 10/31/18 06:58 10/31/18 10:33 10/31/18 10:33 10/31/18 06:58 10/31/18 06:58 Oxygen Flow Rate (L/min) 2 Oxygen Delivery Method Nasal Cannula Weight: 199 lb 1.239 oz Body Mass Index (BMI) 39.8 Intake and Output for Last 24 Hours 10/29/18 10/30/18 10/31/18 23:59 23:59 23:59 Intake Total 541 / 541 1131 / 1131 595 / 595 Output Total 1025 / 1025 1150 / 1150 250 / 250 Balance -484 / -484 - / 345 / 345 Microbiology Past 72 Hours 10/25/18 01:05 Blood Culture - Final Blood Culture (Wb) - Arm Left No growth in 5 days. 10/26/18 01:15 Blood Culture - Final Blood Culture (Wb) - Arm Left No growth in 5 days. 10/30/18 13:20 Streptococcus pneumoniae Antigen (M - Final Interface Orders 10/30/18 13:20 Legionella Antigen - Final Interface Orders Laboratory Tests Past 24 Hrs 10/31/18 10/31/18 05:34 05:34 WBC 9.1 RBC 3.60 L Hgb 10.8 L Hct 33.1 L MCV 91.9 MCH 30.0 MCHC 32.6 RDW 13.3 RDW Differential 43.4 Plt Count 328 MPV 9.7 Immature Gran % (Auto) 0.700 Neut % (Auto) 88.3 H Lymph % (Auto) 5.2 L [place] % (Auto) 5.6 Eos % (Auto) 0.1 Baso % (Auto) 0.1 Absolute Neuts (auto) 8.0 H Absolute Lymphs (auto) 0.47 L Total Counted Not Reportable Sodium 128 L Potassium 4.1 Chloride 90 L Carbon Dioxide 28.0 Anion Gap 10 BUN 35 H Creatinine 0.53 L Estim Creat Clear Calc 68.00 Est GFR (MDRD) Af Amer 144 Est GFR (MDRD) Non-Af 119 BUN/Creatinine Ratio 65.9 H Glucose 153 H Calcium 8.1 L Home Medications: Medications to take at Discharge Aspirin [Aspirin, Baby] 81 mg PO DAILY@0800 07/12/15 Atorvastatin Calcium [Lipitor] 80 mg PO QHS 07/12/15 Calcium Carb/Vitamin D [Caltrate-600 With Vit D Tab] 1 tab PO DAILY 07/12/15 Lisinopril [Zestril] 5 mg PO DAILY 07/12/15 Dibucaine [Nupercainal] 56.7 gm RC 4X/DAY PRN PRN #1 oint...g. 09/28/15 Albuterol Inhaler [Ventolin Hfa] 2 puff INHALATION Q4H PRN PRN #1 inhaler 10/31/18 Benzonatate [Tessalon Perle] 200 mg PO TID PRN PRN capsule 10/31/18 Furosemide 40 mg PO DAILY #0 10/31/18 Guaifenesin [Mucinex] 1,200 mg PO BID #14 tablet 10/31/18 Oseltamivir Phosphate [Tamiflu] 30 mg PO X1 #1 capsule 10/31/18 Following Prescrptions Were Given to Patient: Albuterol Inhaler [Ventolin Hfa] 2 puff INHALATION Q4H PRN PRN #1 inhaler PRN Reason: Shortness Of Breath Oseltamivir Phosphate [Tamiflu] 30 mg PO X1 #1 capsule Guaifenesin [Mucinex] 1,200 mg PO BID #14 tablet Primary Care Physician: Momo Carvajal Chi, MD [Primary Care Provider] - Please follow up with your Primary Care Physician in: On Sat, 11/03 with BMP for hyponatremia Please Follow Up With: Louise Chu DO When: In 2 weeks for single kidney with hyponatremia Medical Necessity - Tobacco Use Smoking Status: Never smoker Meaningful Use Info Meaningful Use Diagnoses (Choose all that apply): None applicable Code Visit Inpatient E&M: 74264 Disch Hosp
[2018-10-31] MEDS: 0.9% Normal Saline 1,000 ML 50 ML IV (12:09)
--- NOTE | 2018-11-03 14:18 | CASEMGMT ---
RN CM DC F/U call DC Date 10/31/18 DC Disposition: Home LACE/STRATA: 10/14 Role of CM introduced via phone message. Call back information given if pt had questions re: f/u, prescriptions or dc instructions. Ceci GRANADON RN ACM
--- OUTSIDE RECORDS SUMMARY | 2019-01-28 12:41 | XMS RPT_ITS ---
:1940 Author Organization [facility] Support Name Relationship Address Phone SAÚL GOODE Unavailable [id number] + [place] [address] NÉSTOR SAENZTER Unavailable [address] + [place] [address] R Unavailable Unavailable Unavailable Saúl Goode Unavailable [address] + [place] [address] Néstor Saenzter Unavailable [address] + [place] [address] R Unavailable Unavailable Unavailable Saúl Goode Unavailable [address] + [place] [address] Néstor Saenzter Unavailable [address] + [place] [address] R Unavailable Unavailable Unavailable Saúl Goode Unavailable [address] + [place] [address] Néstor Saenzter Unavailable [address] + [place] [address] R Unavailable Unavailable Unavailable SAÚL GOODE Unavailable [address] + [place] [address] NÉSTOR SAENZTER Unavailable [address] + [place] [address] R Unavailable Unavailable Unavailable SAÚL GOODE Unavailable [address] + [place] [address] NÉSTOR SAENZTER Unavailable [address] + [place] [address] R Unavailable Unavailable Unavailable SAÚL GOODE Unavailable [address] + [place] [address] NÉSTOR SAENZTER Unavailable [address] + [place] [address] R Unavailable Unavailable Unavailable SAÚL GOODE Unavailable [address] + [place] [address] EUGENE, SEBAS Unavailable [address] + [place] [address] R Unavailable Unavailable Unavailable SÚAL GOODE Unavailable [address] + [place] [address] EUGENE, SEBAS Unavailable [address] + [place] [address] R Unavailable Unavailable Unavailable SAÚL GOODE Unavailable [address] + [place] [address] EUGENE, SEBAS Unavailable [address] + [place] [address] R Unavailable Unavailable Unavailable Saúl Goode Unavailable [address] + [place] [address] Eugene, Sebas Unavailable [address] + [place] [address] R Unavailable Unavailable Unavailable Saúl Goode Unavailable [address] + [place] [address] Eugene, Sebas Unavailable [address] + [place] [address] R Unavailable Unavailable Unavailable Saúl Goode Unavailable [address] + [place] [address] Eugene, Sebas Unavailable [address] + [place] [address] R Unavailable Unavailable Unavailable Saúl Goode Unavailable [address] + [place] [address] Eugene, Sebas Unavailable [address] + [place] [address] R Unavailable Unavailable Unavailable SAÚL GOODE Unavailable [address] + [place] [address] EUGENE, SEBAS Unavailable [address] + [place] [address] R Unavailable Unavailable Unavailable SAÚL GOODE Unavailable [address] + [place] [address] EUGENE, SEBAS Unavailable [address] + [place] [address] R Unavailable Unavailable Unavailable JAGGER, KERILYNN Unavailable [address] + [place] [address] EUGENE, SEBAS Unavailable [address] + [place] [address] R Unavailable Unavailable Unavailable JAGGER, KERILYNN Unavailable [address] + [place] [address] EUGENE, SEBAS Unavailable [address] + [place] [address] R Unavailable Unavailable Unavailable JAGGER, KERILYNN Unavailable [address] + [place] [address] EUGENE, SEBAS Unavailable [address] + [place] [address] R Unavailable Unavailable Unavailable JAGGER KERILYNN Unavailable [address] + [place] [address] EUGENE, SEBAS Unavailable [address] + [place] [address] R Unavailable Unavailable Unavailable JAGGER, KERILYNN Unavailable [address] + [place] [address] EUGENE, SEBAS Unavailable [address] + [place] [address] R Unavailable Unavailable Unavailable JAGGER, KERILYNN Unavailable [address] + [place] [address] EUGENE, SEBAS Unavailable [address] + [place] [address] R Unavailable Unavailable Unavailable JAGGER, KERILYNN Unavailable [address] + [place] [address] EUGENE, SEBAS Unavailable [address] + [place] [address] R Unavailable Unavailable Unavailable JAGGER, KERILYNN Unavailable [address] + [place] [address] EUGENE, SEBAS Unavailable [address] + [place] [address] R Unavailable Unavailable Unavailable JAGGER, KERILYNN Unavailable [address] + [place] [address] EUGENE, SEBAS Unavailable [address] + [place] [address] R Unavailable Unavailable Unavailable SAÚL GOODE Unavailable [address] + [place] [address] EUGENE, SEBAS Unavailable [address] + [place] [address] R Unavailable Unavailable Unavailable SAÚL GOODE Unavailable [address] + [place] [address] EUGENE, SEBAS Unavailable [address] + [place] [address] R Unavailable Unavailable Unavailable SAÚL GOODE Unavailable [address] + [place] [address] EUGENE, SEBAS Unavailable [address] + [place] [address] R Unavailable Unavailable Unavailable Care Team Providers Name Role Phone Wei, Momo Chi Attending Unavailable Wei, Momo Chi Primary Care Unavailable Wei, Momo Chi Primary Care Unavailable Kristan, Mike Admitting Unavailable Donn, Neal Attending Unavailable Vlad, Louise Consulting Unavailable Kristan, Mike Admitting Unavailable Kristan, Mike [...] Primary Care Unavailable Orlando Shaffer Attending Unavailable Timothy Duran Attending Unavailable Timothy Duran Attending Unavailable Timi, Gamaliel Attending Unavailable Kristan, Mike Referring Unavailable Timi, Edwards Attending Unavailable Donn, Neal Referring Unavailable Wei, Momo Chi Attending Unavailable Wei, Momo Chi Primary Care Unavailable Wei, Momo Chi Primary Care Unavailable White, Indu Admitting Unavailable Tereletsky, Catrachito Attending Unavailable Anton, Jerry Consulting Unavailable White, Indu Admitting Unavailable White, Indu Attending Unavailable Wei, Momo Chi Primary Care Unavailable White, Indu Consulting Unavailable White, Indu Admitting Unavailable Liza Rivera MEDICAL FILE CLERK-C Attending Unavailable Wei, Momo Chi Primary Care Unavailable Anton, Jerry Consulting Unavailable Tereletsky, Catrachito Consulting Unavailable White, Indu Admitting Unavailable Anton, Jerry Attending Unavailable Wei, Momo Chi Primary Care Unavailable Anton, Jerry Consulting Unavailable Tereletsky, Catrachito Consulting Unavailable Wei, Momo Chi Primary Care Unavailable Tereletsky, Catrachito Admitting Unavailable Gbaruk, Kombian Attending Unavailable Tereletsky, Catrachito Admitting Unavailable Tereletsky, Catrachito Attending Unavailable Wei, Momo Chi Primary Care Unavailable Tereletsky, Catrachito Consulting Unavailable White, Indu Admitting Unavailable Tereletsky, Catrachito Attending Unavailable Wei, Momo Chi Primary Care Unavailable Anton, Jerry Consulting Unavailable Tereletsky, Catrachito Consulting Unavailable Tereletsky, Catrachito Admitting Unavailable Tereletsky, Catrachito Attending Unavailable Wei, Momo Chi Primary Care Unavailable Tereletsky, Catrachito Consulting Unavailable Tereletsky, Catrachito Admitting Unavailable Wei, Momo Chi Primary Care Unavailable Gbaruk, Kombian Consulting Unavailable Donn, Neal Attending Unavailable Tereletsky, Catrachito Admitting Unavailable Wei, Momo Chi Primary Care Unavailable Gbaruk, Kombian Consulting Unavailable Donn, Neal Attending Unavailable Tereletsky, Catrachito Attending Unavailable Orlando Baer Attending Unavailable Tereletsky, Catrachito Referring Unavailable Wei, Momo Chi Attending Unavailable Wei, Momo Chi Primary Care Unavailable Wei, Momo Chi Primary Care Unavailable Mark Hager Attending Unavailable PROBLEMS PROBLEMS DATE TYPE CONDITION / CODE ATTENDING STATUS SOURCE 10/31/2018 Unknown Z90.5 - Acquired Donn, Neal Active [facility] absence of kidney / Community Z90.5(ICD-10) Hospital Repository 11/20/2018 Unknown R94.31 - Abnormal Timi, Edwards Active [facility] electrocardiogram Community [ECG] [EKG] / Hospital R94.31(ICD-10) Repository PROCEDURES PROCEDURES No Procedure Records FoundRESULTS RESULTS DISCHARGE INSTRUCTION Observed: 12/03/2018 Status: F Source: [place] 3:27 PM [facility] REPOSITORY [facility] Medical Records Department [address] [place] [address] Discharge Instruction 12/03/18 1504 MR#: [id number] Acct: [id number] Name: ABRAN SAENZ Rep #: [id number] : 1940 78 From: Mark Hager MD PCP: Momo Carvajal MD, Chi Status: REG ER ED Disposition - Plan for ED Patient: Disposition: Home or Assisted Living Chief Complaint: Shortness of Breath Instructions: ED Dyspnea Shortness of Breath Referrals: Momo Carvajal Chi, MD [Primary Care Provider] - As soon as possible Additional Instructions: You may hold her carvedilol however you need to monitor your blood pressure and heart rate and follow-up with Dr. Carvajal about this. Otherwise your exam and labs are basically unremarkable. What to do if you have Problems For any increased pain, shortness of breath, bleeding, nausea or vomiting, chest pain, or any unexpected problems, contact your Primary Care Provider. Call [facility] ([phone]) or report to the closest Emergency Room. Call 911 if necessary. 12/03/18 1527 <Electronically signed by Mark Hager MD> Date Mark Hager MD Cosigner Signature (If Indicated): Date CC: Momo Carvajal MD EMERGENCY DEPARTMENT Observed: 12/03/2018 Status: F Source: [place] SUMMARY 3:27 PM [facility] REPOSITORY [facility] Medical Records Department [address] [place] [address] Emergency Department Summary 12/03/18 1247 MR#: [id number] Acct: [id number] Name: ABRAN SAENZ Rep #: [id number] : 1940 78 From: Mark Hager MD PCP: Momo Carvajal MD, Chi Status: REG ER - ER Visit Summary Date of Service: 12/03/18 Chief Complaint: Shortness of breath History of Present Illness: The patient is a 78 F history of + prior CHF, questionable COPD and anemia. 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 Patient states the last 2 days she has been more short of breath. She is has been on home O2 since she uses occasionally. A week or so ago her primary care physician started her on a beta-malina. She states that when the problem started. States she has swelling in her right leg. No calf pain. No prior DVT or PE. No recent travel or surgery. She has had recent hospitalization and admission. Recent custodial admission. She denies any chest pain or any hemoptysis. States her pulse ox at home is in the 80s without her oxygen. She also states for the last 3 days she has had minimal to no urination. No prior history. She denies any hematuria or dysuria. Physical Examination: Well-appearing older female. No distress. With oxygen on her pulse ox is 97%. She is afebrile. She does not look septic or toxic. H EENT exam unremarkable. Neck nontender. Lungs clear to auscultation bilaterally. Diminished in both bases. Heart regular rate and rhythm rate about 70. Abdomen is obese but soft. Nontender nondistended. Normal bowel sounds no peritoneal signs. I do not appreciate a distended bladder. Extremities moves all 4. 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 Right leg is minimally swollen compared to the left the left appears more atrophy. There is no significant peripheral edema or calf tenderness or cords. Neurologically she is awake and alert answering questions and following commands. Test Results: Chest x-ray showed chronic changes no acute process read by myself. Ultrasound of her right leg showed no DVT per the denture laboratory technician. EKG sinus rhythm rate of 70 with a first-degree AV block otherwise unremarkable. No signs of RI or ischemia. CBC shows a normal white count of 6. Globin 9.9 she is chronically anemic her hemoglobin typically runs around 10. Electrolytes shows a sodium 129. Potassium 5.3. BUN of 24 creatinine 0.39. Gap is 7. UA is normal. Troponin normal. BNP 120. Bladder scan was only 26 and when the nurse did a straight cath on the patient it was only 100 cc. Emergency Department Course and Treatment: The patient will undergo a workup for her dyspnea. Also a noninvasive study of her right lower extremity. A bladder scan for urinary retention. Repeat exam patient is doing well at 1455. Her oxygen is 97% on 2 L. Patient is doing well. I went over all test results with her and her . They are comfortable with her being discharged home. Treatment Plan: Patient wants to stop her carvedilol medication. She will monitor her blood pressure and heart rate and follow-up with Dr. Braden about this. Disposition: Discharge Impression: Acute on chronic dyspnea of uncertain etiology Decreased urination Mild dehydration. Chronic anemia. Mild hyponatremia and hyperkalemia. This note was generated with QuanTemplate[employer] software. It may contain incorrect words, spelling, [...] your Primary Care Provider. Call [facility] ([phone]) or report to the closest Emergency Room. Call 911 if necessary. 12/03/18 1527 <Electronically signed by Mark Hager MD> Date Mark Hager MD Cosigner Signature (If Indicated): Date CC: Momo Carvajal MD URINALYSIS, COMPLETE Collected: 12/03/2018 Status: F Source: [place] 2:05 PM [facility] REPOSITORY Order Comment: How was Urine Obtained? STATISTICAL CLERK ADVERTISING TO SPECIFY TYPE CODE TESTS RESULT OUT OF RANGE REFERENCE UNITS LAB L400.3000 Yellow COLOR Normal Yellow LAB L400.3050 Clear Normal CLARITY Clear LAB L400.3200 Normal mg/dl Normal GLUCOSE, UR Normal LAB L400.3300 Negative mg/dL Normal BILIRUBIN URINE Negative LAB L400.3400 Negative mg/dl Normal KETONE UR Negative LAB L400.3465 1.002-1.030 Normal SP.GR. DIPSTX 1.010 LAB L400.3550 5.0 - 8.0 pH UR Normal 5.0 LAB L400.3600 Negative mg/dl PROT Normal DIPSTX Negative LAB L400.3700 Normal mg/dl Normal UROBILI Normal LAB L400.3750 Negative Normal NITRITE UR Negative LAB L400.3780 Negative /ul Normal OCCULT BLOOD-UR Negative LAB L400.3800 Negative /ul LEUK Normal ESTERASE Negative LAB L400.4050 0-5 /hpf WBC 0 Normal SEEN LAB L400.4100 0-5 /hpf 0 Normal RBC-UA SEEN LAB L400.4150 5-10 /hpf SQUAM 0 Normal EPI SEEN LAB L400.4300 None Seen /hpf 0 Normal BACTERIA SEEN LAB L400.4350 <or=2+ /hpf 0 Normal MUCUS, URINE SEEN Performed By: #### L400.0001 #### [facility] [address] [place], [address] CBC W/DIFF, AUTOMATED Collected: 12/03/2018 Status: F Source: [place] 1:40 PM [facility] REPOSITORY TYPE CODE TESTS RESULT OUT OF RANGE REFERENCE UNITS LAB L100.1000 4.4-11.0 K/mm3 Normal WBC 6.3 LAB L100.1200 4.2-5.4 M/mm3 Low RBC 3.34 LAB L100.1300 12.0-15.0 g/dl Low HGB 9.9 LAB L100.1400 37-47 % Low HCT 30.9 LAB L100.1500 81-99 fL Normal MCV 92.5 LAB L100.1600 27.0-32.0 pg Normal MCH 29.6 LAB L100.1700 32-36 g/gl Normal MCHC 32.0 LAB L100.1810 11.6-14.6 % High RDW CV 14.7 LAB L100.1820 35.1-43.9 fl High RDW SD 50.1 LAB L100.1900 150-450 K/mm3 Normal PLT 328 LAB L100.2000 6.2-12.0 fl Normal MPV 9.3 LAB L100.2100 47-70 % Normal NEUT% 68.7 LAB L100.2200 19-41 % Low LY% 18.3 LAB L100.2300 0-10 % High MONO% 11.1 LAB L100.2400 0-5 % Normal EO% 1.3 LAB L100.2500 0-1 % Normal BASO% 0.3 LAB L100.2550 0.0-0.9 % Normal IM GRAN % 0.300 Result Comment: IG% - Immature Granulocytes (promyelocytes, myelocytes and metamyelocytes) > 1% indicates that a LEFT SHIFT is Present. LAB L100.2620 2.0-7.7 X10 3/uL Normal Absolute Neut 4.3 LAB L100.2720 0.83-4.51 X10 3/ul Normal Absolute Lymph 1.15 Performed By: #### L100.0100 #### [facility] [address] [place], [address] BASIC METABOLIC Collected: 12/03/2018 Status: F Source: [place] [facility] 1:40 PM [facility] REPOSITORY TYPE CODE TESTS RESULT OUT OF RANGE REFERENCE UNITS LAB L501.0100 74-106 mg/dL Normal GLU 95 Result Comment: Please note revised GLUCOSE reference range effective 2017. LAB L501.1000 7-18 mg/dL High BUN 24 LAB L501.1100 0.55-1.02 mg/dL Low CREAT,SERUM 0.39 Result Comment: The validity of the calculated GFR AND GFRAA in patients over 70 years has not been determined. Clinical correlation is essential. LAB L501.1110 >60 mL/min Normal EST GFR 172 Result Comment: Non- GFR Calc LAB L501.1115 >60 mL/min Normal EST GFR - AA 208 Result Comment: GFR Calc LAB L501.1255 ml/min Normal Estimated CRCL 69.13 LAB L501.1300 10-20 RATIO High BUN/CRE 62.2 LAB L501.2200 8.5-10 mg/dL Low .1 CA 8.2 LAB L501.5300 136-14 mmol/L Low 5 NA 129 LAB L501.5600 3.5-5. mmol/L High 1 K 5.3 LAB L501.5900 98-107 mmol/L Low CL 96 LAB L501.6100 21.0-3 mmol/L Normal 2.0 CO2 26.0 LAB L501.6200 5-15 Normal GAP 7 Performed By: #### L500.2500, L501.4010 #### [facility] [address] [place], [address] TROPONIN-I Collected: 12/03/2018 Status: F Source: [place] 1:40 PM [facility] REPOSITORY TYPE CODE TESTS RESULT OUT OF RANGE REFERENCE UNITS LAB L501.4010 <0.045 ng/mL Normal < 0.015 TROPONIN-I Result Comment: TROPONIN-I EXPECTED VALUES <0.045 Negative 0.045 - 0.590 Consistent with Cardiac Damage > OR = 0.600 Critical Value Not every elevated troponin is indicative of RI. These values should be used with clinical judgement in examining the patient's clinical picture for diagnosis. To establish a diagnosis of RI versus myocardial injury, there must be a demonstrated rise and/or fall in the troponin values, in addition to ischemic symptoms, EKG changes, new regional wall motion abnormality, and/or angiographical evidence. PLEASE NOTE: REFERENCE RANGES EDITED 18 Performed By: #### L500.2500, L501.4010 #### [facility] [address] [place], [address] BNP,B-TYPE NATRIURETIC Collected: 12/03/2018 Status: F Source: [place] 1:40 PM [facility] REPOSITORY TYPE CODE TESTS RESULT OUT OF RANGE REFERENCE UNITS LAB L503.6620 0-100 pg/mL High B-TYPE 120.4 THOMAS PEP Performed By: #### L503.6620 #### [facility] [address] [facility] [place], [address] CHEST PA AND LATERAL Observed: 12/03/2018 Status: F Source: [place] 12:46 PM [facility] REPOSITORY [facility] Imaging Services [address] [place] [address] Chest PA and Lateral MR#: [id number] Acct: [id number] Name: ABRAN SAENZ Rep #: [id number] : 1940 F 78 From: Angel Kyle MD PCP: Wei PRYOR,Momo Chi Status: REG ER Study: Chest PA and Lateral Date of Exam: 12/03/18 Exam# [id number] Ordering Dr: Mark Hager MD STUDY: X-RAY CHEST REASON FOR EXAM: Female, 78 years old. Shortness of breath. Fluid overload. Urinary retention. TECHNIQUE: AP and lateral views of the chest. COMPARISON: Comparison is made with prior examination dated November 03, 2018. FINDINGS: EKG electrodes are seen. There is evidence of vascular congestion and CHF. Small bilateral pleural effusions. There is moderate cardiac enlargement. Normal mediastinum and fouzia. Normal visualized pulmonary arteries. There is atherosclerotic tortuosity of the aortic arch and descending thoracic aorta. There is demineralization of the osseous structures. There is degenerative osteoarthritis of the bilateral shoulders. There is no demonstrated abnormality of the visualized soft tissue structures of the upper abdomen. RAD/Chest PA and Lateral IMPRESSION: Cardiomegaly and CHF. Small bilateral pleural effusions. Electronically Signed: Angel Kyle MD at 15:00 EST , Service support , CC: Mark Hager MD; Momo Carvajal MD Drop Count Associate: Signed BASIC METABOLIC Collected: 11/26/2018 Status: F Source: [place] PROFILE (BMP) 3:19 PM [facility] REPOSITORY TYPE CODE TESTS RESULT OUT OF [...] GAP 10 Performed By: #### L500.2500 #### [facility] [address] [facility] [place], [address] EMERGENCY DEPARTMENT Observed: 11/18/2018 Status: F Source: [place] SUMMARY 1:14 AM [facility] REPOSITORY [facility] Medical Records Department [address] [facility] [place] [address] Emergency Department Summary 11/03/18 0746 MR#: [id number] Acct: [id number] Name: ABRAN SAENZ Rep #: [id number] : 1940 78 From: Orlando Shaffer DO PCP: Momo Carvajal MD, Chi Status: DEP ER - ER Visit [...] attempting to get the patient transferred to correction facility on [address] in the late afternoon. Patient will need follow-up for the lung mass seen on CT. Impression: 1. COPD exacerbation 2. Mucus plugging 3. Lung mass This note was generated with [employer] dictation software. It may contain incorrect words, [...] your Primary Care Provider. Call [facility] ([phone]) or report to the closest Emergency Room. Call 911 if necessary. 11/18/18 0114 <Electronically signed by Orlando Shaffer DO> Date Orlando Shaffer DO Cosigner Signature (If Indicated): Date CC: Momo Carvajal MD 12 LEAD ELECTROCARDIOGRAM Observed: 11/17/2018 Status: F Source: [place] 1:54 PM [facility] REPOSITORY [facility] Cardiovascular Services [address] [place] [id number] 12 Lead EKG 11/03/18 0748 MR#: [id number] Acct: [id number] Name: ABRAN SAENZ Rep #: [id number] : 1940 78 From: Orlando Baer MD [...] enlargement Borderline ECG Confirmed by ORLANDO BAER ([id number]), industrial editor LEON DURAN ([id number]) on 11/17/2018 1:53:36 PM Referred By: JESSICA Confirmed By:ORLANDO BAER 11/17/18 1353 Date Orlando Baer MD CC: Orlando Shaffer DO; Momo Carvajal MD Signed CBC-COMPLETE BLOOD CNT Collected: 11/14/2018 Status: F Source: [place] NO DIFF 8:00 AM [facility] REPOSITORY Order Comment: 401 TYPE CODE TESTS [...] MPV 9.6 Performed By: #### L100.0500 #### [facility] [place], [address] BASIC METABOLIC Collected: 11/14/2018 Status: F Source: [place] PROFILE ([place]MP) 8:00 AM [facility] REPOSITORY Order Comment: 401 TYPE CODE TESTS [...] GAP 8 Performed By: #### L500.2500 #### [facility] [address] [facility] [place], [place], [address] CBC-COMPLETE BLOOD CNT Collected: 11/07/2018 Status: F Source: [place] NO DIFF 8:00 AM [facility] REPOSITORY Order Comment: 401 TYPE CODE TESTS [...] MPV 10.5 Performed By: #### L100.0500 #### [facility] [address] [facility] [place], [place], [id number] BASIC METABOLIC Collected: 11/07/2018 Status: F Source: [place] PROFILE (BMP) 8:00 AM [facility] REPOSITORY Order Comment: 401 TYPE CODE TESTS [...] GAP 7 Performed By: #### L500.2500 #### [facility] [address] [facility] [place], [address] CHEST WITHOUT Observed: 11/03/2018 Status: F Source: [place] CONTRAST 12:20 PM [facility] REPOSITORY [facility] Imaging Services [address] [place] [address] Chest without Contrast MR#: [id number] Acct: [id number] Name: ABRAN SAENZ Rep #: [id number] : 1940 F 78 From: Laisha Mcclain MD PCP: Wei PRYOR,collegefeed Status: REG ER Study: Chest without Contrast Date of Exam: 11/03/18 Exam# [id number] Ordering Dr: Orlando Shaffer DO STUDY: CT [...] CC: Orlando Shaffer DO; Momo Carvajal MD Drop Count Associate: Signed CBC W/DIFF, AUTOMATED Collected: 11/03/2018 Status: F Source: [place] 9:40 AM [facility] REPOSITORY TYPE CODE TESTS RESULT OUT OF [...] Lymph 1.24 Performed By: #### L100.0100 #### [facility] [place], [address] COMPREHENSIVE METABOLIC Collected: 11/03/2018 Status: F [facility] AM [facility] REPOSITORY TYPE CODE TESTS RESULT OUT OF [...] 8 Performed By: #### L500.4050, L501.4010 #### [facility] Laboratory [address] [place], [address] TROPONIN-I Collected: 11/03/2018 Status: F Source: CHRISTOPHER 9:40 AM [facility] REPOSITORY TYPE CODE TESTS RESULT OUT OF RANGE REFERENCE UNITS LAB L501.4010 <0.045 ng/mL Normal < 0.015 TROPONIN-I Result Comment: TROPONIN-I EXPECTED VALUES <0.045 Negative 0.045 - 0.590 Consistent with Cardiac Damage > OR = 0.600 Critical Value Not every elevated troponin is indicative of RI. These values should be used with clinical judgement in examining the patient's clinical picture for diagnosis. To establish a diagnosis of RI versus myocardial injury, there must be a demonstrated rise and/or fall in the troponin values, in addition to ischemic symptoms, EKG changes, new regional wall motion abnormality, and/or angiographical evidence. PLEASE NOTE: REFERENCE RANGES EDITED 18 Performed By: #### L500.4050, L501.4010 #### [facility] [address] [facility] [place], [address] BNP,B-TYPE NATRIURETIC Collected: 11/03/2018 Status: F Source: CHRISTOPHER PEPTIDE 9:40 AM [facility] REPOSITORY TYPE CODE TESTS RESULT OUT OF RANGE REFERENCE UNITS LAB L503.6620 0-100 pg/mL Normal B-TYPE 53.2 THOMAS PEP Performed By: #### L503.6620 #### [facility] [address] [facility] [place], [address] CHEST 1 VIEW Observed: 11/03/2018 Status: F Source: CHRISTOPHER (PORTABLE) 7:31 AM [facility] REPOSITORY [facility] Imaging Services [address] [place] [address] Chest 1 View (Portable) MR#: [id number] Acct: [id number] Name: ABRAN SAENZ Rep #: [id number] : 1940 F 78 From: Felicitas Mancera MD PCP: Wei PRYOR,Momo Pfeiffer Status: REG ER Study: Chest 1 View (Portable) Date of Exam: 11/03/18 Exam# [id number] Ordering Dr: Orlando Shaffer DO STUDY: X-RAY [...] aspect of the right base Electronically Signed: Juanjosepatricia Calderon, at 11:52 EST Tel , Service support , CC: Orlando Shaffer DO; Momo Carvajal MD Drop Count Associate: Signed DISCHARGE SUMMARY Observed: 10/31/2018 Status: F Source: SMYRNA 2:35 PM [facility] REPOSITORY [facility] Medical Records Department [address] [place] [address] Discharge Summary 10/31/18 1117 MR#: [id number] Acct: [id number] Name: ABRAN SAENZ Rep #: [id number] : 1940 78 From: Neal Pop MD PCP: Momo Carvajal MD, Chi Status: ADM IN Location: [address] ADDENDUM by Neal Pop MD on [...] with viral bronchitis influenza B and human [place] pneumo virus with suspicion of possible bacterial [...] with mild proteinuria, mild hyperkalemia and hyponatremia: Curtain Inspector Dr. Chu was consulted. UA was done by judicial assistant. UA shows protein 30, LE 500, RBC 5200, WBC 0-5, random sodium 7 and creatinine 30. Specific gravity 1.01 normal. Patient was given Kayexalate for K5.8. Repeat potassium is 4.1. Sodium is still low at 128. Curtain Inspector recommended to continue IV fluid. Patient wants to go home. Patient was advised follow-up BMP on 11/03/[address] Carvajal. This was discussed with judicial assistant Dr. Chu. 3. Acute COPD exacerbation, probably secondary to influenza B and human [place] viral bronchitis: Patient has seen Dr. 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, on IV solumedrol, breathing treatments, oral azithromycin, [...] 88.3 H, Lymph % (Auto) 5.2 L, Stanly % (Auto) 5.6, Eos % (Auto) 0.1, [...] 250 / 250 Balance -484 / -484 -19 / -19 345 / 345 Microbiology Past 72 Hours [...] On Sat, 11/03 with BMP for hyponatremia Please Follow Up With: Louise Chu DO When: In 2 weeks for single kidney with hyponatremia Medical Necessity - Tobacco Use Smoking Status: Never smoker Meaningful Use Info Meaningful Use Diagnoses (Choose all that apply): None applicable Code Visit Inpatient E AND M: 28042 Disch Hosp 10/31/18 1308 <Electronically signed by Neal Pop MD> Date Neal Pop MD Cosigner Signature (if applicable): Date CC: Neal Pop MD; Momo Carvajal MD Signed 12 LEAD ELECTROCARDIOGRAM Observed: 10/31/2018 Status: F Source: SMYRNA 2:12 PM [facility] REPOSITORY [facility] Cardiovascular Services [address] [place] [address] 12 Lead EKG 10/29/18 0853 MR#: [id number] Acct: [id number] Name: ABRAN SAENZ Rep #: [id number] : 1940 78 From: Gamaliel Capellan MD Attending Dr: Neal Pop MD Status: ADM IN Ordering Dr: Neal Pop MD Date: 10/29/18 Location: [facility] Sex: F C Admitted: 10/26/18 Test Reason [...] UNCONFIRMED Confirmed by GAMALIEL CAPELLAN MD ([id number]), industrial editor LEON DURAN ([id number]) on 10/31/2018 2:11:58 PM Referred By: DONN Confirmed By:GAMALIEL CAPELLAN MD 10/31/18 1412 Date Gamaliel Capellan MD CC: Neal Pop MD; Momo Carvajal MD Signed DISCHARGE INSTRUCTION Observed: 10/31/2018 Status: F Source: CHRISTOPHER 1:09 PM [facility] REPOSITORY [facility] Medical Records Department [address] [place] [address] Instructions for Home/Discharge Instructions 10/31/18 1115 MR#: [id number] Acct: [id number] Name: ABRAN SAENZ Rep #: [id number] : 1940 78 From: Neal Pop MD [...] F Source: CHRISTOPHER CULTURE, SPUTUM 12:10 PM [facility] REPOSITORY Gram Stain Acceptable Specimen? Yes (<25 Epithelial cells per/lpf) Gram Stain 3+ Gram positive cocci 1+ Gram positive rods Rare White Blood Cells Resp. Culture Mixed normal respiratory yesika. No Haemophilus, Streptococcus pneumoniae, beta-hemolytic Streptococcus or Staphylococcus aureus isolated. Performed By: #### M100.0800 #### [facility] [address] [place], [address] BASIC METABOLIC Collected: 10/31/2018 Status: F Source: CHRISTOPHER PROFILE (BMP) 5:34 AM [facility] REPOSITORY TYPE CODE TESTS RESULT OUT OF [...] GAP 10 Performed By: #### L500.2500 #### [facility] Laboratory [facility] [address] [facility] [place], [place], [address] CBC W/DIFF, AUTOMATED Collected: 10/31/2018 Status: F Source: SMYRNA 5:34 AM [facility] REPOSITORY TYPE CODE TESTS RESULT OUT OF [...] Lymph 0.47 Performed By: #### L100.0100 #### [facility] [address] [facility] [place], [address] CONSULTATION Observed: 10/30/2018 Status: F Source: SMYRNA 9:29 PM [facility] REPOSITORY [facility] Medical Records Department [address] [place] [address] Consultation 10/29/18 1204 MR#: [id number] Acct: [id number] Name: ABRAN SAENZ Rep #: [id number] : 1940 78 From: Louise Chu DO PCP: Wei PRYOR,Momo Pfeiffer Status: ADM IN Location: [place] [address] Consultation - Renal 10/29/18 PCP/ Referring MD: [...] mg Albuterol/Ipratropium (Duoneb) 3 ml INHALATION Q4HWA.RT [facility] Last Admin: 10/29/18 10:59 Dose: 3 ml Aspirin (Aspirin, Baby) 81 mg PO DAILY@0800 [facility] Last Admin: 10/29/18 08:52 Dose: 81 mg Atorvastatin Calcium (Lipitor) 80 mg PO QHS [facility] Last Admin: 10/28/18 21:06 Dose: 80 mg Benzonatate (Tessalon Perle) 200 mg PO TID [facility] Calcium/Vitamin D (Os-Guillermo 500mg + D) 1 tablet PO DAILY [facility] Last Admin: 10/29/18 08:52 Dose: 1 tablet Dibucaine (Dibucaine) 1 applic TOPICAL 4X/DAY PRN PRN PRN Reason: anal pain Enoxaparin Sodium (Lovenox) 40 mg SC DAILY [facility] Last Admin: 10/29/18 08:52 Dose: Not Given Furosemide (Lasix) 40 mg IV Q12H [facility] Guaifenesin (Mucinex) 1,200 mg PO BID [facility] Sodium Chloride () 250 mls @ 15 mls/hr IV .[id number] PRN PRN Reason: SALINE FLUSH Last Admin: 10/26/18 17:14 Dose: 15 mls/hr Lisinopril (Zestril) 5 mg PO DAILY [facility] Last Admin: 10/29/18 08:52 Dose: 5 mg Methylprednisolone (Solu-Medrol) 40 mg IV Q8 KRZYSZTOF Last Admin: 10/29/18 05:42 Dose: 40 mg Oseltamivir Phosphate (Tamiflu) 30 mg PO BID KRZYSZTOF Stop: 10/31/18 22:01 Last Admin: 10/29/18 08:52 [...] infection 6. Arthrogyposis with debilitation, limited ROM 10/30/189 <Electronically signed by Louise Chu DO> Date Louise Chu DO Cosigner Signature (if applicable): Date CC: Louise Chu DO; Momo Carvajal MD Signed Observed: 10/30/2018 Status: F Source: CRHISTOPHER LEGIONELLA ANTIGEN 1:20 PM [facility] URINE REPOSITORY Interface Comments: use off of urine already collected Legionella, UR Legionella Antigen result interpretation: Negative Presumptive negative for Legionella pneumophila serogroup 1 antigen in urine, suggesting no recent or current infection. Legionella Ag, Urine Negative (See interpretation below) Performed By: #### M300.4500 #### [facility] [place], [address] STREP Observed: 10/30/2018 Status: F Source: CHRISTOPHER PNEUMONIAE ANTIG(UR,CSF) 1:20 PM [facility] REPOSITORY Interface Comments: use of of urine [...] interpretation below) Performed By: #### M300.4600 #### [facility] [address] [facility] [place], [address] Observed: 10/30/2018 Status: F Source: CHRISTOPHER CULTURE, URINE 1:20 PM [facility] REPOSITORY Comments: add to UA please Urine Culture ORGANISM 1: Enterococcus faecalis Cosby Count 50,000-80,000 Enterococcus faecalis: REACTION Ampicillin $ <=2 S Benzylpenicillin NF 4 S Gentamicin SYN-S S Linezolid $$$$ 2 S Tigecycline $$$$ <=0.12 S Streptomycin $ SYN-R R Vancomycin $ 1 S (NF) indicates non-formulary drug at [facility]. Approval by Infectious Disease Specialist required before non-formulary drugs may be ordered and/or dispensed. * CLSI guidelines does not recommend testing of cephalosporins. This interpretation is deduced from Beta-lactam/penicillin results. Performed By: #### M100.0650 #### [facility] [address] [place], [address] CHEST PA AND LATERAL Observed: 10/30/2018 Status: F Source: SMYRNA 12:21 PM [facility] REPOSITORY [facility] Imaging Services [address] [place] [address] Chest PA and Lateral MR#: [id number] Acct: [id number] Name: ABRAN SAENZ Rep #: [id number] : 1940 F 78 From: Gilson Poole MD PCP: Wei PRYOR,Momo Pfeiffer Status: ADM IN Study: Chest PA and Lateral Date of Exam: 10/30/18 Exam# [id number] Ordering Dr: Neal Pop MD STUDY: X-RAY [...] CC: Neal Pop MD; Momo Carvajal MD Drop Count Associate: Signed BNP,B-TYPE NATRIURETIC Collected: 10/30/2018 Status: F Source: CHRISTOPHER PEPTIDE 7:50 AM [facility] REPOSITORY TYPE CODE TESTS RESULT OUT OF RANGE REFERENCE UNITS LAB L503.6620 0-100 pg/mL Normal B-TYPE 66.1 THOMAS PEP Performed By: #### L503.6620 #### [facility] [address] [place], [place], [address] BASIC METABOLIC Collected: 10/30/2018 Status: F Source: CHRISTOPHER PROFILE (BMP) 7:50 AM [facility] REPOSITORY TYPE CODE TESTS RESULT OUT OF [...] GAP 12 Performed By: #### L500.2500 #### [facility] [address] [place], [place], [address] BASIC METABOLIC Collected: 10/29/2018 Status: F Source: SMYRNA PROFILE (BMP) 6:00 PM [facility] REPOSITORY TYPE CODE TESTS RESULT OUT OF [...] GAP 11 Performed By: #### L500.2500 #### [facility] [address] [place], [address] 12 LEAD ELECTROCARDIOGRAM Observed: 10/29/2018 Status: F Source: CHRISTOPHER 3:29 PM [facility] REPOSITORY [facility] Cardiovascular Services [address] [place] [address] 12 Lead EKG 10/25/18 2332 MR#: [id number] Acct: [id number] Name: ABRAN SAENZ Rep #: [id number] : 1940 78 From: Gamaliel Capellan MD Attending Dr: Neal Pop MD Status: ADM IN Ordering Dr: Juan Khalil MD Date: 10/25/18 Location: [facility] Sex: F C Admitted: 10/26/18 Test Reason [...] , age undetermined Abnormal ECG Confirmed by TIMI PRYOR, GAMALIEL ([id number]), industrial editor LEON DURAN ([id number]) on 10/29/2018 3:29:24 PM Referred By: TOM Confirmed By:GAMALIEL CAPELLAN MD 10/29/18 1529 Date Gamaliel Capellan MD CC: Juan Khalil MD; Neal Pop MD; Momo Carvajal MD Signed URINALYSIS, COMPLETE Collected: 10/29/2018 Status: F Source: CHRISTOPHER 1:20 PM [facility] REPOSITORY Order Comment: How was Urine Obtained? STATISTICAL CLERK ADVERTISING TO SPECIFY TYPE CODE TESTS RESULT OUT [...] MUCUS, URINE Performed By: #### L400.0001 #### [facility] [address] [facility] [place], [address] URINE SODIUM Collected: 10/29/2018 Status: F Source: CHRISTOPHER 1:20 PM [facility] REPOSITORY TYPE CODE TESTS RESULT OUT OF RANGE REFERENCE UNITS LAB L501.5500 Not Establ. mmol/L Normal UR NA 7 Performed By: #### L501.5500 #### [facility] [address] [facility] [place], [address] CREATININE, URINE Collected: 10/29/2018 Status: F Source: CHRISTOPHER (RANDOM) 1:20 PM [facility] REPOSITORY TYPE CODE TESTS RESULT OUT OF RANGE REFERENCE UNITS LAB L501.1200 NO RANGE EST. mg/dL Normal UR CREAT 30.40 Performed By: #### L501.1200 #### [facility] [address] [facility] [place], [address] BASIC METABOLIC Collected: 10/29/2018 Status: F Source: CHRISTOPHER PROFILE (BMP) 1:02 PM [facility] TYPE CODE TESTS [...] GAP 10 Performed By: #### L500.2500 #### [facility] [address] [facility] [place], [address] KIDNEY AND BLADDER Observed: 10/29/2018 Status: F Source: SMYRNA 12:14 PM [facility] REPOSITORY [facility] Imaging Services [address] [place] [address] Kidney and Bladder MR#: [id number] Acct: [id number] Name: ABRAN SAENZ Rep #: [id number] : 1940 F 78 From: Jonny Andrade MD PCP: Wei PRYOR,Momo Pfeiffer Status: ADM IN Study: Kidney and Bladder Date of Exam: 10/29/18 Exam# [id number] Ordering Dr: Louise Chu DO STUDY: RENAL [...] CC: Louise Chu DO; Momo Carvajal MD Drop Count Associate: Signed BASIC METABOLIC Collected: 10/29/2018 Status: F Source: CHRISTOPHER PROFILE (BMP) 5:45 AM [facility] REPOSITORY TYPE CODE TESTS RESULT OUT OF [...] 9 Performed By: #### L500.2500, L501.5200 #### [facility] [address] [place], [address] MAGNESIUM Collected: 10/29/2018 Status: F Source: SMYRNA 5:45 AM [facility] REPOSITORY TYPE CODE TESTS RESULT OUT OF RANGE REFERENCE UNITS LAB L501.5200 1.6-2.6 mg/dL Normal MG 1.9 Performed By: #### L500.2500, L501.5200 #### [facility] [address] [place], [address] CHEST PA AND LATERAL Observed: 10/28/2018 Status: F Source: SMYRNA 12:30 PM [facility] REPOSITORY [facility] Imaging Services [address] [place] [address] Chest PA and Lateral MR#: [id number] Acct: [id number] Name: ABRAN SAENZ Rep #: [id number] : 1940 F 78 From: Jonny Andrade MD PCP: Wei PRYOR,Momo Chi Status: ADM IN Study: Chest PA and Lateral Date of Exam: 10/28/18 Exam# [id number] Ordering Dr: Neal Pop MD STUDY: X-RAY [...] CC: Neal Pop MD; Momo Carvajal MD Drop Count Associate: Signed ECHOCARDIOGRAM COMPLETE Observed: 10/27/2018 Status: F Source: SMYRNA 4:15 PM [facility] REPOSITORY [facility] Cardiovascular Services [address] [place] [address] Echo Complete 10/27/18 1128 MR#: [id number] Acct: [id number] Name: ABRAN SAENZ Rep #: [id number] : 1940 78 From: Gamaliel Capellan MD Attending Dr: Neal Pop MD Status: ADM IN Ordering Dr: Mike Rushing MD Date: 10/26/18 Location: [facility] Sex: F C Admitted: 10/26/18 Reason For [...] Physician: Momo Carvajal Chi Performed By: Alexandra Olivarez, NIDHI, RVT 10/27/18 1614 Date Gamaliel Capellan MD CC: Mike Rushing MD; Neal Pop MD; Momo Carvajal MD Date Dictated: 10/27/188 Date Transcribed: 10/27/181613 Drop Count Associate: Signed BASIC METABOLIC Collected: 10/27/2018 Status: F Source: CHRISTOPHER PROFILE (BMP) 5:15 AM [facility] REPOSITORY TYPE CODE TESTS RESULT OUT OF [...] GAP 9 Performed By: #### L500.2500 #### [facility] [place], [address] CBC W/DIFF, AUTOMATED Collected: 10/27/2018 Status: F Source: SMYRNA 5:15 AM [facility] REPOSITORY TYPE CODE TESTS RESULT OUT OF [...] MORPH LARGE Performed By: #### L100.0100 #### [facility] [address] [facility] [place], [place], [address] Observed: 10/26/2018 Status: F Source: SMYRNA INFLUENZA A+B (RAPID 1:30 PM [facility] [place]) REPOSITORY FLU A/B Rapid Negative test results should be confirmed by culture. Order Rapid Viral Culture for Influenzae A+B (303635) if clinically indicated. Influenza Ag, Direct Presumptive NEGATIVE for Influenza A/B Antigen (See Note) Performed By: #### M101.0101, M100.638 #### [facility] [address] [facility] [place], [place], [address] Observed: 10/26/2018 Status: F Source: SMYRNA RESPIRATORY PANEL 1:30 PM [facility] MOLECULAR REPOSITORY RP PANEL Normal Reference Range = Not Detected RESULTS CALLED TO NOVA/U 10/27/18 1106 Nelia Mendiola. Copy of report sent to Infection Control Printer MS#[id number] 10/27/18 1106 DCANNON. ADENOVIRUS Not Detected HUMAN METAPHNEUMO Positive for [...] META Performed By: #### M101.0101, M100.638 #### [facility] [address] [place], [address] TROPONIN-I Collected: 10/26/2018 Status: F Source: CHRISTOPHER 10:46 AM [facility] REPOSITORY Order Comment: 'TROP' Serial specimen #1, #2 or #3: 3 TYPE CODE TESTS RESULT OUT OF RANGE REFERENCE UNITS LAB L501.4010 <0.045 ng/mL Normal < 0.015 TROPONIN-I Result Comment: TROPONIN-I EXPECTED VALUES <0.045 Negative 0.045 - 0.590 Consistent with Cardiac Damage > OR = 0.600 Critical Value Not every elevated troponin is indicative of RI. These values should be used with clinical judgement in examining the patient's clinical picture for diagnosis. To establish a diagnosis of RI versus myocardial injury, there must be a demonstrated rise and/or fall in the troponin values, in addition to ischemic symptoms, EKG changes, new regional wall motion abnormality, and/or angiographical evidence. PLEASE NOTE: REFERENCE RANGES EDITED 18 Performed By: #### L501.4010 #### [facility] [address] [facility] [place], [place], [address] TROPONIN-I Collected: 10/26/2018 Status: F Source: CHRISTOPHER 7:30 AM [facility] REPOSITORY Order Comment: 'TROP' Serial specimen #1, #2 or #3: 2 TYPE CODE TESTS RESULT OUT OF RANGE REFERENCE UNITS LAB L501.4010 <0.045 ng/mL Normal < 0.015 TROPONIN-I Result Comment: TROPONIN-I EXPECTED VALUES <0.045 Negative 0.045 - 0.590 Consistent with Cardiac Damage > OR = 0.600 Critical Value Not every elevated troponin is indicative of RI. These values should be used with clinical judgement in examining the patient's clinical picture for diagnosis. To establish a diagnosis of RI versus myocardial injury, there must be a demonstrated rise and/or fall in the troponin values, in addition to ischemic symptoms, EKG changes, new regional wall motion abnormality, and/or angiographical evidence. PLEASE NOTE: REFERENCE RANGES EDITED 18 Performed By: #### L501.4010 #### [facility] [address] [facility] [place], [place], [address] PROTHROMBIN TIME W/INR Collected: 10/26/2018 Status: F Source: CHRISTOPHER 5:00 AM [facility] REPOSITORY TYPE CODE TESTS RESULT OUT OF RANGE REFERENCE UNITS LAB L300.4150 11.7-14.9 SECONDS Normal PROTIME 12.9 LAB L300.4200 Normal INR 1.0 Performed By: #### L300.3900 #### [facility] [address] [place], [address] CBC W/DIFF, AUTOMATED Collected: 10/26/2018 Status: F Source: SMYRNA 5:00 AM [facility] REPOSITORY TYPE CODE TESTS RESULT OUT OF [...] Lymph 0.60 Performed By: #### L100.0100 #### [facility] [address] [place], [address] BASIC METABOLIC Collected: 10/26/2018 Status: F Source: CHRISTOPHER PROFILE (BMP) 5:00 AM [facility] REPOSITORY Order Comment: 'TROP' Serial specimen #1, [...] L500.2500, L500.4100, L501.4010, L501.5200, L501.9520, L503.6620 #### [facility] [address] [place], [address] LIPID PROFILE Collected: 10/26/2018 Status: F Source: CHRISTOPHER 5:00 AM [facility] REPOSITORY Order Comment: 'TROP' Serial specimen #1, [...] L500.2500, L500.4100, L501.4010, L501.5200, L501.9520, L503.6620 #### [facility] [address] [facility] [place], [address] TROPONIN-I Collected: 10/26/2018 Status: F Source: SMYRNA 5:00 AM [facility] REPOSITORY Order Comment: 'TROP' Serial specimen #1, #2 or #3: 1 TYPE CODE TESTS RESULT OUT OF RANGE REFERENCE UNITS LAB L501.4010 <0.045 ng/mL Normal < 0.015 TROPONIN-I Result Comment: TROPONIN-I EXPECTED VALUES <0.045 Negative 0.045 - 0.590 Consistent with Cardiac Damage > OR = 0.600 Critical Value Not every elevated troponin is indicative of RI. These values should be used with clinical judgement in examining the patient's clinical picture for diagnosis. To establish a diagnosis of RI versus myocardial injury, there must be a demonstrated rise and/or fall in the troponin values, in addition to ischemic symptoms, EKG changes, new regional wall motion abnormality, and/or angiographical evidence. PLEASE NOTE: REFERENCE RANGES EDITED 18 Performed By: #### L500.2500, L500.4100, L501.4010, L501.5200, L501.9520, L503.6620 #### [facility] [address] [place], [address] MAGNESIUM Collected: 10/26/2018 Status: F Source: CHRISTOPHER 5:00 AM [facility] REPOSITORY Order Comment: 'TROP' Serial specimen #1, #2 or #3: 1 TYPE CODE TESTS RESULT OUT OF RANGE REFERENCE UNITS LAB L501.5200 1.6-2.6 mg/dL Normal MG 2.0 Performed By: #### L500.2500, L500.4100, L501.4010, L501.5200, L501.9520, L503.6620 #### [facility] [address] [place], [address] THYROID STIM HORMONE Collected: 10/26/2018 Status: F Source: CHRISTOPHER (TSH) 5:00 AM [facility] REPOSITORY Order Comment: 'TROP' Serial specimen #1, #2 or #3: 1 TYPE CODE TESTS RESULT OUT OF RANGE REFERENCE UNITS LAB L501.9520 0.358-3.74 uIU/mL Normal TSH 1.11 Performed By: #### L500.2500, L500.4100, L501.4010, L501.5200, L501.9520, L503.6620 #### [facility] [address] [place], [address] BNP,B-TYPE NATRIURETIC Collected: 10/26/2018 Status: F Source: CHRISTOPHER PEPTIDE 5:00 AM [facility] REPOSITORY TYPE CODE TESTS RESULT OUT OF RANGE REFERENCE UNITS LAB L503.6620 0-100 pg/mL Normal B-TYPE 98.3 THOMAS PEP Performed By: #### L500.2500, L500.4100, L501.4010, L501.5200, L501.9520, L503.6620 #### [facility] [address] [place], [address] HISTORY AND PHYSICAL Observed: 10/26/2018 Status: F Source: CHRISTOPHER EXAM 4:22 AM [facility] REPOSITORY [facility] Medical Records Department [address] [place] [address] History and Physical 10/26/18 0405 MR#: [id number] Acct: [id number] Name: ABRAN SAENZ Rep #: [id number] : 1940 78 From: Mike Rushing MD PCP: Momo Carvajal MD, Chi Status: ADM IN Y Location: [place] [address] Problem List (1) Acute congestive heart failure [...] youth. 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 Lives: Spouse/ Significant Other Smoking Status: [...] lovenox Code Visit Inpatient E AND M: 10982 Init Hosp L3 10/26/18 0422 <Electronically signed by Mike Rushing MD> Date Mike Rushing MD Cosigner Signature: Date (if applicable) CC: Mike Rushing MD; Momo Carvajal MD Signed EMERGENCY DEPARTMENT Observed: 10/26/2018 Status: F Source: [place] SUMMARY 1:33 AM [facility] REPOSITORY [facility] Medical Records Department [address] [place] [address] [place] [address] Emergency Department Summary 10/26/18 0128 MR#: [id number] Acct: [id number] Name: ABRAN SAENZ Rep #: [id number] : 1940 78 From: Juan Khalil MD PCP: Wei PRYOR,Momo Pfeiffer Status: REG ER - ER Visit Summary [...] CHF exacerbation This note was generated with [employer] dictation software. It may contain incorrect words, [...] your Primary Care Provider. Call [facility] ([phone]) or report to the closest Emergency Room. Call 911 if necessary. 10/26/18 0133 <Electronically signed by Juan Khalil MD> Date Juna Khalil MD Cosigner Signature (If Indicated): Date CC: Momo Carvajal MD LACTIC ACID Collected: 10/26/2018 Status: F Source: CHRISTOPHER 1:15 AM [facility] REPOSITORY Order Comment: Yes/No query for Sepsis Lactate Rule Y TYPE CODE TESTS RESULT OUT OF RANGE REFERENCE UNITS LAB L503.6005 0.4-2.0 mmol/L Normal LACTIC ACID 1.0 Performed By: #### L503.6005 #### [facility] [address] [place], [address] Observed: 10/26/2018 Status: F Source: CHRISTOPHER CULTURE, BLOOD (WB) 1:15 AM [facility] REPOSITORY BC No growth in 5 days. Performed By: #### M200.1000 #### [facility] [address] [place], [place], [address] CBC W/DIFF, AUTOMATED Collected: 10/26/2018 Status: F Source: CHRISTOPHER 12:45 AM [facility] REPOSITORY TYPE CODE TESTS RESULT OUT OF [...] Lymph 0.97 Performed By: #### L100.0100 #### [facility] [address] [place], [address] BASIC METABOLIC Collected: 10/26/2018 Status: F Source: CH[place]STOPHER PROFILE (BMP) 12:45 AM [facility] REPOSITORY TYPE CODE TESTS RESULT OUT OF [...] 9 Performed By: #### L500.2500, L501.4010 #### [facility] [address] [place], [place], [address] TROPONIN-I Collected: 10/26/2018 Status: F Source: CHRISTOPHER 12:45 AM [facility] REPOSITORY TYPE CODE TESTS RESULT OUT OF RANGE REFERENCE UNITS LAB L501.4010 <0.045 ng/mL Normal < 0.015 TROPONIN-I Result Comment: TROPONIN-I EXPECTED VALUES <0.045 Negative 0.045 - 0.590 Consistent with Cardiac Damage > OR = 0.600 Critical Value Not every elevated troponin is indicative of RI. These values should be used with clinical judgement in examining the patient's clinical picture for diagnosis. To establish a diagnosis of RI versus myocardial injury, there must be a demonstrated rise and/or fall in the troponin values, in addition to ischemic symptoms, EKG changes, new regional wall motion abnormality, and/or angiographical evidence. PLEASE NOTE: REFERENCE RANGES EDITED 18 Performed By: #### L500.2500, L501.4010 #### [facility] [address] [place], [address] BNP,B-TYPE NATRIURETIC Collected: 10/26/2018 Status: F Source: [place] PEPTIDE 12:45 AM [facility] REPOSITORY TYPE CODE TESTS RESULT OUT OF RANGE REFERENCE UNITS LAB L503.6620 0-100 pg/mL Normal B-TYPE 76.8 THOMAS PEP Performed By: #### L503.6620 #### [facility] [address] [place], [address] CHEST 1 VIEW Observed: 10/25/2018 Status: F Source: CHRISTOPHER (PORTABLE) 11:51 PM [facility] REPOSITORY [facility] Imaging Services [address] [facility] [place] [address] Chest 1 View (Portable) MR#: [id number] Acct: [id number] Name: ABRAN SAENZ Rep #: [id number] : 1940 F 78 From: Santino Mancuso MD PCP: Wei PRYOR,Momo Pfeiffer Status: REG ER Study: Chest 1 View (Portable) Date of Exam: 10/25/18 Exam# [id number] Ordering Dr: Juan Khalil MD STUDY: X-RAY [...] CC: Juan Khalil MD; Momo Carvajal MD Drop Count Associate: Signed Observed: 10/25/2018 Status: F Source: [place] CULTURE, BLOOD (WB) 1:05 AM [facility] REPOSITORY BC No growth in 5 days. Performed By: #### M200.1000 #### [facility] [address] [place] [address]. [place], [address] CBC W/DIFF, AUTOMATED Collected: 10/22/2018 Status: F Source: [place] 2:38 PM [facility] REPOSITORY TYPE CODE TESTS RESULT OUT OF [...] Lymph 1.46 Performed By: #### L100.0100 #### [facility] [address] [place], [address] COMPREHENSIVE METABOLIC Collected: 10/22/2018 Status: F Source: [facility] 2:38 PM [facility] REPOSITORY TYPE CODE TESTS RESULT OUT OF [...] 8 Performed By: #### L500.4050, L501.9520 #### [facility] [address] [place], [place], [address] THYROID STIM HORMONE Collected: 10/22/2018 Status: F Source: CHRISTOPHER (TSH) 2:38 PM [facility] REPOSITORY TYPE CODE TESTS RESULT OUT OF RANGE REFERENCE UNITS LAB L501.9520 0.358-3.74 uIU/mL Normal TSH 1.74 Performed By: #### L500.4050, L501.9520 #### [facility] [address] [facility] [address] [place], [place], [address] VITAMIN D,25 HYDROXY Collected: 10/22/2018 Status: F Source: CHRISTOPHER 2:38 PM [facility] REPOSITORY TYPE CODE TESTS RESULT OUT OF RANGE REFERENCE UNITS LAB L506.1000 29.95-100.01 ng/mL Normal Vitamin D 33.6 25-OH Result Comment: Vitamin D 25(OH) Status Range Deficiency <20 ng/mL (50nmol/L) Insuffciency 20 - 30 ng/mL (50 - 75 nmol/L) Sufficiency 30 - 100 ng/mL (75 - 250 nmol/L) Toxicity >100 ng/mL (>250 nmol/L) Performed By: #### L506.1000 #### [facility] [address] [place], [address] COMPREHENSIVE METABOLIC Collected: 04/22/2018 Status: F Source: CHRISTOPHER [facility] 3:18 PM [facility] REPOSITORY TYPE CODE TESTS RESULT OUT OF [...] 10 Performed By: #### L500.4050, L501.9520 #### [facility] [address], [address] THYROID STIM HORMONE Collected: 04/22/2018 Status: F Source: CHRISTOPHER (TSH) 3:18 PM [facility] REPOSITORY TYPE CODE TESTS RESULT OUT OF RANGE REFERENCE UNITS LAB L501.9520 0.358-3.74 uIU/mL Normal TSH 1.38 Performed By: #### L500.4050, L501.9520 #### [facility] [place], [address] CBC W/DIFF, AUTOMATED Collected: 04/22/2018 Status: F Source: CHRISTOPHER 3:18 PM [facility] REPOSITORY TYPE CODE TESTS RESULT OUT OF [...] Lymph 1.77 Performed By: #### L100.0100 #### [facility] [address] [place], [address] VITAMIN D,25 HYDROXY Collected: 04/22/2018 Status: F Source: [place] 3:18 PM [facility] REPOSITORY TYPE CODE TESTS RESULT OUT OF RANGE REFERENCE UNITS LAB L506.1000 29.95-100.01 ng/mL Normal Vitamin D 36.4 25-OH Result Comment: Vitamin D 25(OH) Status Range Deficiency <20 ng/mL (50nmol/L) Insuffciency 20 - 30 ng/mL (50 - 75 nmol/L) Sufficiency 30 - 100 ng/mL (75 - 250 nmol/L) Toxicity >100 ng/mL (>250 nmol/L) Performed By: #### L506.1000 #### [facility] [address] [place], [address] DISCHARGE SUMMARY Observed: 02/02/2018 Status: F Source: [place] 12:03 PM [facility] REPOSITORY [facility] Medical Records Department [address] [place] [address] Discharge Summary 02/02/18 1155 MR#: [id number] Acct: [id number] Name: ABRAN SAENZ Rep #: [id number] : 1940 77 From: Han Quan MD PCP: Wei PRYOR,Momo Pfeiffer Status: ADM IN Location: [place] [address] Discharge Date and Diagnosis - Problem List [...] F seen in the emergency room at [facility] with a chief complaint of increased shortness of breath her release from the hospital . She was initially hospitalized from [facility] 2 01/28/2018 and treated for pneumonia with IV [...] exam at the time of discharge; 10 , 92, 16, 98% on room air, afebrile [...] gm RC 4X/DAY PRN PRN #1 oint...g. 11/18/15 Benzonatate [Tessalon Perle] 100 mg PO TID [...] applicable Code Visit Inpatient E AND M: 65664 Disch Hosp 02/02/18 1203 <Electronically signed by Han Quan MD> Date Han Quan MD Cosigner Signature (if applicable): Date CC: Han Quan MD; Momo Carvajal MD Signed DISCHARGE INSTRUCTION Observed: 02/02/2018 Status: F Source: [place] 11:55 AM [facility] REPOSITORY [facility] Medical Records Department [address] [place] [address] Instructions for Home/Discharge Instructions 02/02/18 1154 MR#: [id number] Acct: [id number] Name: ABRAN SAENZ Rep #: [id number] : 1940 77 From: Han Quan MD [...] F Source: CHRISTOPHER PROFILE (BMP) 5:50 AM [facility] REPOSITORY TYPE CODE TESTS RESULT OUT OF [...] GAP 6 Performed By: #### L500.2500 #### [facility] [address] [place], [address] CHEST 1 VIEW Observed: 02/01/2018 Status: F Source: [place] (PORTABLE) 12:00 AM [facility] REPOSITORY [facility] Imaging Services [address] [place] [address] Chest 1 View (Portable) MR#: [id number] Acct: [id number] Name: ABRAN SAENZ Rep #: [id number] : 1940 F 77 From: Vincent Hidalgo PCP: Wei PRYOR,collegefeed Status: ADM IN Study: Chest 1 View (Portable) Date of Exam: 02/01/18 Exam# [id number] Ordering Dr: Catrachito Holley DO STUDY: X-RAY [...] CC: Catrachito Holley DO; Momo Carvajal MD Drop Count Associate: Signed 12 LEAD ELECTROCARDIOGRAM Observed: 01/31/2018 Status: F Source: CHRISTOPHER 1:45 PM [facility] REPOSITORY [facility] Cardiovascular Services [address] [place] [address] 12 Lead EKG 01/29/18 0740 MR#: [id number] Acct: [id number] Name: ABRAN SAENZ Rep #: [id number] : 1940 77 From: Gamaliel Capellan MD Attending Dr: Catrachito Holley DO Status: ADM IN Ordering Dr: Santino Quinones MD Date: 01/29/18 Location: [facility] Sex: F C Admitted: 01/29/18 Test Reason [...] ECG Confirmed by GAMALIEL CAPELLAN MD ([id number]), industrial editor LEON DURAN ([id number]) on 01/31/2018 1:45:19 PM Referred By: SL Confirmed By:GAMALIEL CAPELLAN MD 01/31/18 1345 Date Gamaliel Capellan MD CC: Santino Quinones MD; Momo Carvajal MD Signed BASIC METABOLIC Collected: 01/31/2018 Status: F Source: CHRISTOPHER PROFILE (BMP) 5:25 AM [facility] REPOSITORY TYPE CODE TESTS RESULT OUT OF [...] GAP 5 Performed By: #### L500.2500 #### [facility] [address] [facility] [place], [address] CHEST 1 VIEW Observed: 01/31/2018 Status: F Source: [place] (PORTABLE) 12:01 AM [facility] REPOSITORY [facility] Imaging Services [address] [place] [address] Chest 1 View (Portable) MR#: [id number] Acct: [id number] Name: ABRAN SAENZ Feliciano Rep #: [id number] : 1940 F 77 From: Bonnie Torres MD PCP: Wei PRYOR,Momo Chi Status: ADM IN Study: Chest 1 View (Portable) Date of Exam: 01/31/18 Exam# [id number] Ordering Dr: Catrachito Holley DO STUDY: X-RAY [...] CC: Catrachito Holley DO; Momo Carvajal MD Drop Count Associate: Signed DISCHARGE SUMMARY Observed: 01/30/2018 Status: F Source: [place] 6:55 PM [facility] REPOSITORY [facility] Medical Records Department [address] [place] [address] Discharge Summary 01/30/18 1848 MR#: [id number] Acct: [id number] Name: ABRAN SAENZ Rep #: [id number] : 1940 77 From: Catrachito Holley DO PCP: Wei PRYOR,Momo Pfeiffer Status: DIS IN Y Location: ICU [id number] Discharge Date and Diagnosis - Problem List Patient Problems: Active and Suspected Problems Shortness of breath (Acute) Date of Admission: 01/27/18 Date of Discharge: 01/28/18 - Primary Discharge Diagnosis Active and Suspected Problems #1 acute sepsis secondary to left lower lobe community-acquired snhzkhhjb-olvd-yceifkow bacterial #2 left lower lobe community-acquired bvefhcptz-kjjs-lxwesqwi bacterial #3 hypoxia secondary to atelectasis and [...] was seen in the emergency room at [facility] with chief complaint of fever, shortness of [...] applicable Code Visit Inpatient E AND M: 75101 Disch Hosp 01/30/18 1855 <Electronically signed by Catrachito Holley DO> Date Catrachito Holley DO Cosigner Signature (if applicable): Date CC: Catrachito Holley DO; Momo Carvajal MD Signed BASIC METABOLIC Collected: 01/30/2018 Status: F Source: CHRISTOPHER PROFILE (BMP) 6:35 AM [facility] REPOSITORY TYPE CODE TESTS RESULT OUT OF [...] GAP 8 Performed By: #### L500.2500 #### [facility] [address] [facility] [place], [address] CHEST 1 VIEW Observed: 01/30/2018 Status: F Source: [place] (PORTABLE) 12:00 AM [facility] REPOSITORY [facility] Imaging Services [address] [place] [address] Chest 1 View (Portable) MR#: [id number] Acct: [id number] Name: ABRAN SAENZ Feliciano Rep #: [id number] : 1940 F 77 From: Gianni White MD PCP: Wei PRYOR,Momo [facility] Status: ADM IN Study: Chest 1 View (Portable) Date of Exam: 01/30/18 Exam# [id number] Ordering Dr: Catrachito Holley DO STUDY: X-RAY [...] CC: Catrachito Holley DO; Momo Carvajal MD Drop Count Associate: Signed TROPONIN-I Collected: 01/29/2018 Status: F Source: CHRISTOPHER 10:37 PM [facility] REPOSITORY Order Comment: 'TROP' Serial specimen #1, #2, #3, or #4: 4 TYPE CODE TESTS RESULT OUT OF RANGE REFERENCE UNITS LAB L501.4010 <0.06 ng/mL High 0.17 TROPONIN-I Result Comment: TROPONIN-I EXPECTED VALUES <0.05 NEGATIVE 0.06 - 0.59 AT RISK OF RI > OR = 0.60 SUGGEST RI Performed By: #### L501.4010 #### [facility] [address] [facility] [place], [address] TROPONIN-I Collected: 01/29/2018 Status: F Source: [place] 4:49 PM [facility] REPOSITORY Order Comment: 'TROP' Serial specimen #1, #2, #3, or #4: 3 TYPE CODE TESTS RESULT OUT OF RANGE REFERENCE UNITS LAB L501.4010 <0.06 ng/mL High 0.22 TROPONIN-I Result Comment: TROPONIN-I EXPECTED VALUES <0.05 NEGATIVE 0.06 - 0.59 AT RISK OF RI > OR = 0.60 SUGGEST RI Performed By: #### L501.4010 #### [facility] [address] [facility], [address] ECHOCARDIOGRAM COMPLETE Observed: 01/29/2018 Status: F Source: [place] 4:36 PM [facility] REPOSITORY [facility] Cardiovascular Services [address] [place] [address] Echo Complete 01/29/18 1418 MR#: [id number] Acct: [id number] Name: ABRAN SAENZ Rep #: [id number] : 1940 77 From: Orlando Baer MD Attending Dr: Catrachito Holley DO Status: ADM IN Ordering Dr: Catrachito Holley DO Date: 01/29/18 Location: [facility] Sex: F C Admitted: 01/29/18 Reason For [...] Physician: Momo Carvajal Chi Performed By: Alexandra Olivarez, NIDHI, RVT 01/29/18 1636 Date Orlando Baer MD CC: Catrachito Holley DO; Momo Carvajal MD Date Dictated: 01/29/18 1418 Date Transcribed: 01/29/18 1636 Drop Count Associate: Signed HISTORY AND PHYSICAL Observed: 01/29/2018 Status: F Source: [place] EXAM 4:08 PM [facility] REPOSITORY [facility] Medical Records Department [address] [place] [address] History and Physical 01/29/18 1558 MR#: [id number] Acct: [id number] Name: ABRAN SAENZ Rep #: [id number] : 1940 77 From: Catrachito Holley DO PCP: Momo Carvajal MD, Chi Status: ADM IN Location: [place] [address] Problem List (1) Shortness of breath Status: Acute History of Present Illness Date of Admission: 01/29/18 Chief Complaint: Shortness of breath The patient is a 77 year old F seen in the emergency room at [facility] with a chief complaint of increased shortness [...] youth. 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 Lives: Spouse/ Significant Other Smoking Status: [...] obesity Code Visit Inpatient E AND M: 22542 Init Hosp L3 01/29/18 1608 <Electronically signed by Catrachito Holley DO> Date Catrachito Holley DO Cosigner Signature: Date (if applicable) CC: Catrachito Holley DO; Momo Carvajal MD Signed EMERGENCY DEPARTMENT Observed: 01/29/2018 Status: F Source: [place] SUMMARY 4:01 PM [facility] REPOSITORY [facility] Medical Records Department [address] [facility] [address] Emergency Department Summary 01/29/18 0910 MR#: [id number] Acct: [id number] Name: ABRAN SAENZ Rep #: [id number] : 1940 77 From: Santino Quinones MD [...] neutrophils 83, lymphs at 7 9. PT MEDICAL FILE CLERK is 160.0. Lactic acid 0.5. Chest x-rays [...] 4. Hypoxia. This note was generated with [employer] software. It may contain incorrect words, spelling, [...] your Primary Care Provider. Call [facility] ([phone]) or report to the closest Emergency Room. Call 911 if necessary. 01/29/18 1601 <Electronically signed by Santino Quinones MD> Date Santino Quinones MD Cosigner Signature (If Indicated): Date CC: Momo Carvajal MD Observed: 01/29/2018 Status: F Source: [place] CULTURE, BLOOD (WB) 8:34 AM [facility] REPOSITORY NO ANAEROBIC BOTTLE RECEIVED BC No growth in 5 days. Performed By: #### M200.1000 #### [facility] [place], [address] CBC W/DIFF, AUTOMATED Collected: 01/29/2018 Status: F Source: [place] 8:26 AM [facility] REPOSITORY TYPE CODE TESTS RESULT OUT OF [...] Lymph 1.00 Performed By: #### L100.0100 #### [facility] [address] [place], [address] BASIC METABOLIC Collected: 01/29/2018 Status: F Source: [place] PROFILE (BMP) 8:26 AM [facility] REPOSITORY Order Comment: 'TROP' Serial specimen #1, [...] 10 Performed By: #### L500.2500, L501.4010 #### [facility] [address] [facility] [address] [place], [place], [address] TROPONIN-I Collected: 01/29/2018 Status: F Source: CHRISTOPHER 8:26 AM [facility] REPOSITORY Order Comment: 'TROP' Serial specimen #1, #2, #3, or #4: 1 TYPE CODE TESTS RESULT OUT OF RANGE REFERENCE UNITS LAB L501.4010 <0.06 ng/mL High 0.21 TROPONIN-I Result Comment: TROPONIN-I EXPECTED VALUES <0.05 NEGATIVE 0.06 - 0.59 AT RISK OF RI > OR = 0.60 SUGGEST RI Performed By: #### L500.2500, L501.4010 #### [facility] [address] [facility] [place], [place], [address] BNP,B-TYPE NATRIURETIC Collected: 01/29/2018 Status: F Source: [place] PEPTIDE 8:26 AM [facility] REPOSITORY TYPE CODE TESTS RESULT OUT OF RANGE REFERENCE UNITS LAB L503.6620 0-100 pg/mL High B-TYPE 160.0 THOMAS PEP Performed By: #### L503.6620 #### [facility] [address] [facility] [place], [place], [address] LACTIC ACID Collected: 01/29/2018 Status: F Source: CHRISTOPHER 8:26 AM [facility] REPOSITORY Order Comment: Yes/No query for Sepsis Lactate Rule Y TYPE CODE TESTS RESULT OUT OF RANGE REFERENCE UNITS LAB L503.6005 0.4-2.0 mmol/L Normal LACTIC ACID 0.5 Performed By: #### L503.6005 #### [facility] [address] [place], [place], [address] Observed: 01/29/2018 Status: F Source: CHRISTOPHER CULTURE, BLOOD (WB) 8:26 AM [facility] REPOSITORY NO ANAEROBIC BOTTLE RECEIVED BC No growth in 5 days. Performed By: #### M200.1000 #### [facility] [address] [place], [place], [address] CHEST PA AND LATERAL Observed: 01/29/2018 Status: F Source: CHRISTOPHER 7:35 AM [facility] REPOSITORY [facility] Imaging Services [address] [place] [address] Chest PA and Lateral MR#: [id number] Acct: [id number] Name: ABRAN SAENZ Rep #: [id number] : 1940 F 77 From: Angel Kyle MD PCP: Wei PRYOR,Momo [facility] Status: REG ER Study: Chest PA and Lateral Date of Exam: 01/29/18 Exam# [id number] Ordering Dr: Santino Quinones MD STUDY: X-RAY [...] Angel Kyle MD at 9:20 EDT Tel [phone], Service support , CC: Santino Quinones MD; Momo Carvajal MD Drop Count Associate: Signed CONSULTATION Observed: 01/28/2018 Status: F Source: [place] 4:11 PM [facility] REPOSITORY [facility] Medical Records Department [address] [place] [address] Consultation 01/28/18 1009 MR#: [id number] Acct: [id number] Name: ABRAN SAENZ Rep #: [id number] : 1940 77 From: Liza Rivera MEDICAL FILE CLERK-C PCP: Momo Carvajal MD, Chi Status: ADM IN Y Location: ICU [id number] ADDENDUM by Jerry Walton MD on 01/28/18 at 1611 Code Visit Patient seen and examined independently in conjunction with nurse practitioner. All data, including note below, was personally reviewed and I agree with the added comments. In brief, patient presented to [facility] on 01/26/2018 secondary to fever, shortness [...] overall clinical picture. Inpatient E AND M: 16467 Init Hosp L2 01/28/18 1611 <Electronically signed [...] youth. 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 This note was generated with [employer]an[employer] software. It may contain incorrect words, spelling, and punctuation that were not noted in checking the note before signing. 01/28/18 1118 <Electronically signed by Liza HIRSCH> Date Liza HIRSCH Cosigner Signature (if applicable): Date CC: Jerry Walton MD; Momo Carvajal MD Signed DISCHARGE INSTRUCTION Observed: 01/28/2018 Status: F Source: [place] 4:11 PM [facility] REPOSITORY [facility] Medical Records Department [address] [place] [address] Instructions for Home/Discharge Instructions 01/28/18 1608 MR#: [id number] Acct: [id number] Name: ABRAN SAENZ Rep #: [id number] : 1940 77 From: Catrachito Holley DO [...] When: in 2 weeks-call for appointment 01/28/18 2439 <Electronically signed by Catrachito Holley DO> Date Catrachito Holley DO CC: Jerry Walton MD; Momo Carvajal MD 12 LEAD ELECTROCARDIOGRAM Observed: 01/28/2018 Status: F Source: [place] 3:16 PM [facility] REPOSITORY [facility] Cardiovascular Services [address] [place] [address] 12 Lead EKG 01/26/184 MR#: [id number] Acct: [id number] Name: ABRAN SAENZ Rep #: [id number] : 1940 77 From: Gamaliel Capellan MD [...] ECG Confirmed by TIMI PRYOR, GAMALIEL ([id number]), industrial editor LEON DURAN ([id number]) on 01/28/2018 3:16:36 PM Referred By: DAYNA Confirmed By:GAMALIEL CAPELLAN MD 01/28/18 1516 Date Gamaliel Capellan MD CC: Anna Quintanilla MD; Momo Carvajal MD Signed CBC W/DIFF, AUTOMATED Collected: 01/28/2018 Status: F Source: CHRISTOPHER 4:25 AM [facility] REPOSITORY TYPE CODE TESTS RESULT OUT OF [...] Lymph 1.21 Performed By: #### L100.0100 #### [facility] [address] [place], [address] BNP,B-TYPE NATRIURETIC Collected: 01/28/2018 Status: F Source: [place] PEPTIDE 4:25 AM [facility] REPOSITORY TYPE CODE TESTS RESULT OUT OF RANGE REFERENCE UNITS LAB L503.6620 0-100 pg/mL Normal B-TYPE 65.0 THOMAS PEP Performed By: #### L503.6620 #### [facility] [address] [place], [address] CHEST 1 VIEW Observed: 01/28/2018 Status: F Source: CHRISTOPHER (PORTABLE) 12:44 AM [facility] REPOSITORY [facility] Imaging Services [address] [place] [address] Chest 1 View (Portable) MR#: [id number] Acct: [id number] Name: ABRAN SAENZ Rep #: [id number] : 1940 F 77 From: Angel Kyle MD PCP: Wei PRYOR,Momo Chi Status: ADM IN Study: Chest 1 View (Portable) Date of Exam: 01/28/18 Exam# [id number] Ordering Dr: Stephen Lay MD STUDY: X-RAY [...] Angel Kyle MD at 8:55 EDT Tel [phone], Service support , CC: Stephen Lay MD; Momo Carvajal MD Drop Count Associate: Signed Observed: 01/27/2018 Status: F Source: [place] CULTURE, SPUTUM 3:10 PM [facility] REPOSITORY Gram Stain Acceptable Specimen? Yes (<25 Epithelial cells per/lpf) Centrifuged Specimen? N/A Gram Stain 2+ White Blood Cells 1+ Epithelial cells 1+ Gram positive cocci Rare Gram positive rods Rare Gram negative rods Resp. Culture Mixed normal respiratory yesika. No Haemophilus, Streptococcus pneumoniae, beta-hemolytic Streptococcus or Staphylococcus aureus isolated. Performed By: #### M100.0800 #### [facility] [address] [place], [address] CBC W/DIFF, AUTOMATED Collected: 01/27/2018 Status: F Source: SMY[place] 4:00 AM [facility] REPOSITORY TYPE CODE TESTS RESULT OUT OF [...] Lymph 1.45 Performed By: #### L100.0100 #### [facility] [address] [place], [place], [address] MAGNESIUM Collected: 01/27/2018 Status: F Source: SMY[place] 4:00 AM [facility] REPOSITORY TYPE CODE TESTS RESULT OUT OF RANGE REFERENCE UNITS LAB L501.5200 1.6-2.6 mg/dL Normal MG 2.2 Result Comment: Please note revised Magnesium reference range effective 2017. Performed By: #### L501.5200 #### [facility] [address] [place], [address] BASIC METABOLIC Collected: 01/27/2018 Status: F Source: CHRISTOPHER PROFILE ([facility]) 4:00 AM [facility] REPOSITORY TYPE CODE TESTS RESULT OUT OF [...] GAP 7 Performed By: #### L500.2500 #### [facility] [address] [place], [address] HEMOGLOBIN A1C Collected: 01/27/2018 Status: F Source: SMY[place] 4:00 AM [facility] REPOSITORY TYPE CODE TESTS RESULT OUT OF RANGE REFERENCE UNITS LAB L501.9985 4.2-6.3 % Normal HGB A1C 5.6 Performed By: #### L501.9985 #### [facility] [address] [place], [address] HISTORY AND PHYSICAL Observed: 01/27/2018 Status: F Source: [place] EXAM 3:52 AM [facility] REPOSITORY [facility] Medical Records Department [address] [place] [address] History and Physical 01/27/18 0149 MR#: [id number] Acct: [id number] Name: ABRAN SAENZ Rep #: [id number] : 1940 77 From: Indu Herr PCP: Wei PRYOR,Momo Pfeiffer Status: ADM IN Y Location: ICU [id number] Problem List (1) HTN (hypertension) Status: Chronic [...] kidney s/p nephrectomy who presents to the [facility] ED on 01/27/18 w/ ongoing fever, chills, [...] youth. 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 Code Visit Inpatient E AND M: 83604 Init Hosp L3 01/27/18 0352 <Electronically signed by Indu Herr > Date Indu Herr Cosigner Signature: Date (if applicable) CC: Indu Herr; Momo Carvajal MD Signed EMERGENCY DEPARTMENT Observed: 01/27/2018 Status: F Source: [place] SUMMARY 2:00 AM [facility] REPOSITORY [facility] Medical Records Department [address] [place] [address] Emergency Department Summary 01/26/182119 MR#: [id number] Acct: [id number] Name: ABRAN SAENZ Rep #: [id number] : 1940 77 From: Anna Quintanilla MD [...] pneumonia, hypoxia This note was generated with [employer] dictation software. It may contain incorrect words, [...] your Primary Care Provider. Call [facility] ([phone]) or report to the closest Emergency Room. Call 911 if necessary. 01/27/18 0200 <Electronically signed by Anna Quintanilla MD> Date Anna Quintanilla MD Cosigner Signature (If Indicated): Date CC: Momo Carvajal MD CTA CHEST W/WO Observed: 01/26/2018 Status: F Source: CHRISTOPHER CONTRAST 11:19 PM [facility] REPOSITORY [facility] Imaging Services [address] [place] [address] CTA Chest W/WO Contrast MR#: [id number] Acct: [id number] Name: ABRAN SAENZ Rep #: [id number] : 1940 F 77 From: Bonnie Torres MD PCP: Momo Carvajal MD, Chi Status: REG ER Study: CTA Chest W/WO Contrast Date of Exam: 01/26/18 Exam# [id number] Ordering Dr: Anna Quintanilla MD STUDY: CTA [...] CC: Anna Quintanilla MD; Momo Carvajal MD Drop Count Associate: Signed Observed: 01/26/2018 Status: F Source: [place] CULTURE, BLOOD (WB) 10:15 PM [facility] REPOSITORY BC No growth in 5 days. Performed By: #### M200.1000 #### [facility] [address] [place], [address] CBC W/DIFF, AUTOMATED Collected: 01/26/2018 Status: F Source: SMYRNA 9:45 PM [facility] REPOSITORY TYPE CODE TESTS RESULT OUT OF [...] Lymph 1.52 Performed By: #### L100.0100 #### [facility] [address] [place], [address] BASIC METABOLIC Collected: 01/26/2018 Status: F Source: SM[place] PROFILE ([facility]) 9:45 PM [facility] REPOSITORY Order Comment: 'TROP' Serial specimen #1, [...] 9 Performed By: #### L500.2500, L501.4010 #### [facility] [address] [facility] [place], [address] TROPONIN-I Collected: 01/26/2018 Status: F Source: SMY[place] 9:45 PM [facility] REPOSITORY Order Comment: 'TROP' Serial specimen #1, #2, #3, or #4: 1 TYPE CODE TESTS RESULT OUT OF RANGE REFERENCE UNITS LAB L501.4010 <0.06 ng/mL Normal < 0.02 TROPONIN-I Result Comment: TROPONIN-I EXPECTED VALUES <0.05 NEGATIVE 0.06 - 0.59 AT RISK OF RI > OR = 0.60 SUGGEST RI Performed By: #### L500.2500, L501.4010 #### [facility] [address] [facility] [place], [place], [id number] LACTIC ACID Collected: 01/26/2018 Status: F Source: SMYRNA 9:45 PM [facility] REPOSITORY Order Comment: Yes/No query for Sepsis Lactate Rule Y TYPE CODE TESTS RESULT OUT OF RANGE REFERENCE UNITS LAB L503.6005 0.4-2.0 mmol/L Normal LACTIC ACID 1.1 Performed By: #### L503.6005 #### [facility] [address], [place], [id number] BNP,B-TYPE NATRIURETIC Collected: 01/26/2018 Status: F Source: [place] PEPTIDE 9:45 PM [facility] REPOSITORY TYPE CODE TESTS RESULT OUT OF RANGE REFERENCE UNITS LAB L503.6620 0-100 pg/mL High B-TYPE 118.1 THOMAS PEP Performed By: #### L503.6620 #### [facility] [address] [place] [address], [address] Observed: 01/26/2018 Status: F Source: CHRISTOPHER CULTURE, BLOOD (WB) 9:45 PM [facility] REPOSITORY BC No growth in 5 days. Performed By: #### M200.1000 #### [facility] [address] [place] [address], [id number] Observed: 01/26/2018 Status: F Source: [place] INFLUENZA A+B (RAPID 9:24 PM [facility] [place]) REPOSITORY Has pt arrived? Y FLU A/B Rapid Negative test results should be confirmed by culture. Order Rapid Viral Culture for Influenzae A+B (159371) if clinically indicated. Influenza Ag, Direct Presumptive NEGATIVE for Influenza A/B Antigen (See Note) Performed By: #### M101.0101 #### [facility] [address] [place] [address], [id number] Observed: 01/26/2018 Status: F Source: CHRISTOPHER RESPIRATORY PANEL 9:21 PM [facility] MOLECULAR REPOSITORY Has pt arrived? Y RP [...] acid amplification Performed By: #### M100.638 #### [facility] [address] [place] [address], [id number] CHEST 1 VIEW Observed: 01/26/2018 Status: F Source: CHRISTOPHER (PORTABLE) 9:20 PM [facility] REPOSITORY [facility] Imaging Services [address] [place] [address] Chest 1 View (Portable) MR#: [id number] Acct: [id number] Name: ABRAN SAENZ Rep #: [id number] : 1940 F 77 From: Vincent Hidalgo PCP: Wei PRYOR,Momo Pfeiffer Status: REG ER Study: Chest 1 View (Portable) Date of Exam: 01/26/18 Exam# [id number] Ordering Dr: Anna Quintanilla MD STUDY: X-RAY [...] CC: Anna Quintanilla MD; Momo Carvajal MD Drop Count Associate: Signed URINALYSIS, ROUTINE Collected: 01/26/2018 Status: F Source: CHRISTOPHER (DIPSTICK) 9:15 PM [facility] REPOSITORY Order Comment: Order Date: 01/26/18 Has [...] High LEUK ESTERASE 500 Performed By: #### L400.2010 #### [facility] [address] [place], [address] Observed: 01/26/2018 Status: F Source: [place] LEGIONELLA ANTIGEN 9:15 PM [facility] URINE REPOSITORY Legionella, UR Legionella Antigen result interpretation: Negative Presumptive negative for Legionella pneumophila serogroup 1 antigen in urine, suggesting no recent or current infection. Legionella Ag, Urine Negative (See interpretation below) Performed By: #### M300.4500 #### [facility] [address] [facility], [address] STREP Observed: 01/26/2018 Status: F Source: SM[place]RNA PNEUMONIAE ANTIG(UR,CSF) 9:15 PM [facility] REPOSITORY S pneumo Ag URINE INTERPRETATION Negative Urine Presumptive negative for pneumococcal pneumonia, suggesting no current or recent pneumococcal infection. Infection due to S pneumoniae cannot be ruled out since the antigen present in the sample may be below the detection limit of the test. Strep pneumo Test Negative URINE (See interpretation below) Performed By: #### M300.4600 #### [facility] [address] [facility] [address] [place], [address] PROGRESS Observed: 01/26/2018 Status: COMPLETED Source: [place] 2:35 PM [facility] REPOSITORY HNO ID: [id number] Author: Loida Seaman Service: (none) Author Type: [...] treatment. CNOV Observed: 01/26/2018 Status: COMPLETED Source: [place] 2:30 PM [facility] REPOSITORY Office Visit (UCWSTR) ABRAN SAENZ ([id number]) 1940 F Date Time Provider Department 01/26/18 2:30 PM LOIDA SEAMAN (MADISYN) WSTR During your visit today, we recorded [...] CODE NAME / CODE REACTION SEVERITY SOURCE 12/03/[address] [facility] Allergy/416 Allergies/F0019 Hospital 715560(SNOM 73607(RXNORM) Repository ED CT) 11/07/2012 DRUG MORPHINE Mental Chg [facility] INGREDI/419 [facility] 928638(SNOM Repository ED CT) ENCOUNTERS ENCOUNTERS ADMIT/DISCHARGE ACCOUNT ADMITTING ENCOUNTER LOCATION SOURCE NUMBER CLASS 12/03/2018/12/03/19 [id number] Emergency [facility] ing:ED Repository 11/26/2018 [id number] Ambulatory [facility] ing:POLAB3 Repository 11/14/2018 [id number] Ambulatory [facility] ing:OLS[facility] Repository C 11/07/2018 [id number] Ambulatory [facility] ing:OLS.[facility] Repository C 11/03/2018/11/03/20 [id number] Emergency [address] ing:ED Repository 10/26/2018/10/31/20 [id number] Kristan, Mike Inpatient [address] ing:PCURoom: Repository [id number]: 1 10/26/2018 [id number] Kristan, Mike Ambulatory BMSBuilding:B [place] [facility] Repository 10/26/2018 [id number] Kristan, Mike Ambulatory BMSBuilding:B [place] [facility] Repository 10/26/2018 [id number] Kristan, Mike Ambulatory BMSBuilding:B [place] [facility] Repository 10/26/2018 [id number] Kristan, Mike Ambulatory BMSBuilding:B [place] [facility] Repository 10/26/2018 [id number] Kristan, Mike Ambulatory BMSBuilding:B [place] [facility] Repository 10/26/2018 [id number] Kristan, Mike Ambulatory BMSBuilding:[place] Repository 10/26/2018/10/31/20 [id number] Ambulatory BMSBuilding:W [place] 18 [facility] Repository 10/26/2018/10/31/20 [id number] Ambulatory BMSBuilding:W Christopher 18 [facility] Repository 10/22/2018 [id number] Ambulatory [facility] ing:POLAB3 Repository 04/22/2018 [id number] Ambulatory [facility] ing:POLAB3 Repository 01/29/2018/02/03/20 [id number] Tereletsky, Inpatient [place] [address] Encounter [facility] ing:PCURoom: Repository [id number]: 1 01/29/2018 [id number] Tereletsky, Ambulatory BMSBuilding:Tara Winston [facility] Repository 01/29/2018 [id number] Christaeletsky, Ambulatory BMSBuilding:Tara Winston [facility] Repository 01/29/2018 [id number] Christaeletssara, Ambulatory BMSBuilding:Tara Winston [facility] Repository 01/29/2018 [id number] Christaeletsky, Ambulatory BMSBuilding:Tara Winston [facility] Repository 01/29/2018/02/03/20 [id number] Ambulatory BMSBuilding:[place] Repository 01/27/2018/01/29/20 [id number] White, Indu Inpatient [facility] 18 Encounter [facility] ing:ICURoom: Repository [id number]: 1 01/27/2018 [id number] White, Indu Ambulatory BMSBuilding:Tara White [facility] Repository 01/27/2018 [id number] White, Indu Ambulatory BMSBuilding:W Christopher [facility] Repository 01/27/2018 [id number] White, Indu Ambulatory BMSBuilding:Tara White MS.[facility] Repository 01/27/2018 [id number] White, Indu Ambulatory BMSBuilding:Tara White [facility] Repository 01/27/2018/01/29/20 [id number] Ambulatory BMSBuilding:W [address] Repository 01/26/2018/01/27/20 [id number] Ambulatory [place] [facility] [place] Repository PAYERS PAYERS ENCOUNTER GUARANTOR PAYER SUBSCRIBER SOURCE 12/03/2018 SEBAS Messi Primary ABRAN L Christopher [id number] Insurance:MEDICARE PERRYDOB: Community [place] PART A BPolicy Number: [id number], [place] [id number] Repository 39316Dii: (493) Date:2018-12-03 [phone] () 12/03/2018 Secondary ABRAN L Christopher Insurance:HUMANA PERRYDOB: Community COMMERCIALPolicy [id number] Hospital Number: Repository [id number] Date:9758-49-80KK [address] [place] [address]DF: 12/03/2018 Tertiary NOT GIVENUNK Christopher Insurance:SELF PAY [facility] Hospital Number: Effective Repository Date:2018-12-03 11/26/2018 SEBAS Swenson Primary ABRAN L [place] [id number] Insurance:MEDICARE PERRYDOB: [facility] [place] PART A BPolicy Number: [id number], [place] [id number] Repository 99042Tfe: (951) Date:2018-11-26 [phone] () 11/26/2018 Secondary ABRAN L [place] Insurance:HUMANA PERRYDOB: [facility] [id number] Hospital Number: Repository [id number] Date:1415-13-77XB [address] [address]SO: 11/26/2018 Tertiary NOT GIVENUNK [place] Insurance:SELF PAY [facility] Hospital Number: Effective Repository Date:2018-11-26 11/14/2018 SEBAS Swenson Primary Insurance:SELF NOT GIVENUNK [place] [id number] [facility] Number: [place] Date:2018-11-14 Repository 57436Sps: () 11/07/2018 SEBAS Swenson Primary Insurance:SELF NOT GIVENUNK [place] [id number] PAY [facility] Number: Effective [place] Date:2018-11-07 Repository 13770Myj: () 11/03/2018 SEBAS Swenson Primary ABRAN L [place] [id number] Insurance:MEDICARE PERRYDOB: Community [place] PART A BPolicy Number: [id number], [place] [id number] Repository [address]Rzh: (971) Date:2018-11-03 [phone] () 11/03/2018 Secondary ABRAN L [place] Insurance:HUMANA PERRYDOB: Community COMMERCIALPolicy [id number] Hospital Number: Repository [id number] Date:7078-99-21CZ [address] [address]AJ: 11/03/2018 Tertiary NOT GIVENUNK Christopher Insurance:SELF PAY [facility] Hospital Number: Effective Repository Date:2018-11-03 10/26/2018 SEBAS Swenson Primary ABRAN L [place] [id number] Insurance:MEDICARE PERRYDOB: Community [place] PART A BPolicy Number: [id number], [place] [id number] Repository 28993Wkz: (453) Date:2018-10-25 [phone] () 10/26/2018 Secondary ABRAN L [place] Insurance:HUMANA PERRYDOB: Community COMMERCIALPolicy [id number] Hospital Number: Repository [id number] Date:3876-21-74LY [address] [place] [address]VR: 10/26/2018 Tertiary NOT GIVENUNK [place] Insurance:SELF PAY [facility] Hospital Number: Effective Repository Date:2018-10-25 10/26/2018 Sebas J Primary ABRAN L [place] [id number] Insurance:MEDICARE PERRYDOB: Community [facility] PART A BPolicy Number: [id number], [place] [id number] Repository 465[address]Art: (778) Date:2018-10-25 [phone] () 10/26/2018 Secondary ABRAN L [place] Insurance:HUMANA PERRYDOB: Community COMMERCIALPolicy [id number] Hospital Number: Repository [id number] Date:5535-32-44ZY [address] [place] [address]BP: 10/26/2018 Tertiary NOT GIVENUNK [place] Insurance:SELF PAY [facility] Hospital Number: Effective Repository Date:2018-10-26 10/26/2018 Sebas J Primary ABRAN L [place] [id number] Insurance:MEDICARE PERRYDOB: Community [facility] PART A BPolicy Number: [id number], [place] [id number] Repository 327[address]Hgq: (582) Date:2018-10-25 [phone] () 10/26/2018 Secondary ABRAN L [place] Insurance:HUMANA PERRYDOB: Community COMMERCIALPolicy [id number] Hospital Number: Repository [id number] Date:9361-66-63DV[address] [address]XC: 10/26/2018 Tertiary NOT GIVENUNK [place] Insurance:SELF PAY [facility] Hospital Number: Effective Repository Date:2018-10-26 10/26/2018 SEBAS J Primary ABRAN L [place] [id number] Insurance:MEDICARE PERRYDOB: Community [place] PART A BPolicy Number: [id number], [place] [id number] Repository 47[address]Nxp: (330) Date:2018-10-25 [phone] () 10/26/2018 Secondary ABRAN L [place] Insurance:HUMANA PERRYDOB: Community COMMERCIALPolicy [id number] Hospital Number: Repository [id number] Date:1009-63-16KS [address] [place] [address]SM: 10/26/2018 Tertiary NOT GIVENUNK [place] Insurance:SELF PAY [facility] Hospital Number: Effective Repository Date:2018-10-26 10/26/2018 SEBAS J Primary ABRAN L [place] [id number] Insurance:MEDICARE PERRYDOB: Community [place] PART A BPolicy Number: [id number], [place] [id number] Repository [address]Cbo: (330) Date:2018-10-25 [phone] () 10/26/2018 Secondary ABRAN L [place] Insurance:HUMANA PERRYDOB: Community COMMERCIALPolicy [id number] Hospital Number: Repository [id number] Date:6061-89-38RY [address] [address]GI: 10/26/2018 Tertiary NOT GIVENUNK [place] Insurance:SELF PAY [facility] Hospital Number: Effective Repository Date:2018-10-26 10/26/2018 SEBAS J Primary ABRAN L [place] [id number] Insurance:MEDICARE PERRYDOB: Community [place] PART A BPolicy Number: [id number], [place] [id number] Repository [address]Dox: 330) Date:2018-10-25 [phone] () 10/26/2018 Secondary ABRAN L [place] Insurance:HUMANA PERRYDOB: Community COMMERCIALPolicy [id number] Hospital Number: Repository [id number] Date:3110-40-61NV[address] [address]UG: 10/26/2018 Tertiary NOT GIVENUNK [place] Insurance:SELF PAY [facility] Hospital Number: Effective Repository Date:2018-10-26 10/26/2018 SEBAS J Primary ABRAN L [place] [id number] Insurance:MEDICARE PERRYDOB: Community [place] PART A BPolicy Number: [id number], [place] [id number] Repository [address]Pvn: (330) Date:2018-10-25 [phone] () 10/26/2018 Secondary ABRAN L [place] Insurance:HUMANA PERRYDOB: Community COMMERCIALPolicy [id number] Hospital Number: Repository [id number] Date:2781-23-24SP [address] [address]TH: 10/26/2018 Tertiary NOT GIVENUNK [place] Insurance:SELF PAY [facility] Hospital Number: Effective Repository Date:2018-10-26 10/26/2018 SEBAS Swenson Primary ABRAN L [place] [id number] Insurance:MEDICARE PERRYDOB: Community [place] PART A BPolicy Number: [id number], [place] [id number] Repository [address]Xgn: (330) Date:2018-10-25 [phone] () 10/26/2018 Secondary ABRAN L [place] Insurance:HUMANA PERRYDOB: Community COMMERCIALPolicy [id number] Hospital Number: Repository [id number] Date:0789-72-43MH[address] [address]NI: 10/26/2018 Tertiary NOT GIVENUNK [place] Insurance:SELF PAY [facility] Hospital Number: Effective Repository Date:2018-10-26 10/26/2018 SEBAS Swenson Primary ABRAN L [place] [id number] Insurance:MEDICARE PERRYDOB: Community [place] PART A BPolicy Number: [id number], [place] [id number] Repository [address]Ecq: (330) Date:2018-10-25 [phone] () 10/26/2018 Secondary ABRAN L [place] Insurance:HUMANA PERRYDOB: [facility] [id number] Hospital Number: Repository [id number] Date:5696-26-39IM[address] [address]SJ: 10/26/2018 Tertiary NOT GIVENUNK Christopher Insurance:SELF PAY [facility] Hospital Number: Effective Repository Date:2018-10-26 10/22/2018 Sebas Swenson Primary ABRAN L Christopher [id number] Insurance:MEDICARE PERRYDOB: Community [facility] PART A BPolicy Number: [id number], [place] [id number] Repository [address]Ndj: (330) Date:2018-10-22 [phone] () 10/22/2018 Secondary ABRAN L [place] Insurance:HUMANA PERRYDOB: Community COMMERCIALPolicy [id number] Hospital Number: Repository [id number] Date:5911-27-[address]RS[address] [address]PZ: 10/22/2018 Tertiary NOT GIVENUNK [place] Insurance:SELF PAY [facility] Hospital Number: Effective Repository Date:2018-10-22 04/22/2018 Sebas Swenson Primary ABRAN L Christopher [id number] Insurance:MEDICARE PERRYDOB: Community [facility] PART A BPolicy Number: [id number], [place] [id number] Repository 43692Igh: 330) Date:2018-04-22 [phone] () 04/22/2018 Secondary ABRAN L Christopher Insurance:HUMANA PERRYDOB: [facility] [id number] Hospital Number: Repository [id number] Date:1060-24-81AJ [address] [address]TV: 04/22/2018 Tertiary NOT GIVENUNK [place] Insurance:SELF PAY [facility] Hospital Number: Effective Repository Date:2018-04-22 01/29/2018 Sebas Swenson Primary ABRAN L [place] [id number] Insurance:MEDICARE PERRYDOB: Community [facility] PART A BPolicy Number: [id number], [place] [id number] Repository 00084Cxu: 330) Date:2018-01-29 [phone] () 01/29/2018 Secondary ABRAN L [place] Insurance:HUMANA PERRYDOB: Community COMMERCIALPolicy [id number] Hospital Number: Repository [id number] Date:[id number] [address]EL: 01/29/2018 Tertiary NOT GIVENUNK [place] Insurance:SELF PAY [facility] Hospital Number: Effective Repository Date:2018-01-29 01/29/2018 Sebas Swenson Primary ABRAN L [place] [id number] Insurance:MEDICARE PERRYDOB: Community [facility] PART A BPolicy Number: [id number], [place] [id number] Repository 10697Dnw: 330) Date:2018-01-29 [phone] () 01/29/2018 Secondary ABRAN L [place] Insurance:HUMANA PERRYDOB: Community COMMERCIALPolicy [id number] Hospital Number: Repository [id number] Date:4873-41-34WC [address] [place] [address]TH: 01/29/2018 Tertiary NOT GIVENUNK [place] Insurance:SELF PAY [facility] Hospital Number: Effective Repository Date:2018-01-29 01/29/2018 Sebas Swenson Primary ABRAN L [place] [id number] Insurance:MEDICARE PERRYDOB: Community [facility] PART A BPolicy Number: [id number], [place] [id number] Repository [address]Ynx: 330) Date:2018-01-29 [phone] () 01/29/2018 Secondary ABRAN L [place] Insurance:HUMANA PERRYDOB: [facility] COMMERCIALPolicy [id number] Hospital Number: Repository [id number] Date:[id number] [address]ES: 01/29/2018 Tertiary NOT GIVENUNK [place] Insurance:SELF PAY [facility] Hospital Number: Effective Repository Date:2018-01-29 01/29/2018 Sebas J Primary ABRAN L [place] [id number] Insurance:MEDICARE PERRYDOB: Community [facility] PART A BPolicy Number: [id number], [place] [id number] Repository 38[address]Gta: (330) Date:2018-01-29 [phone] () 01/29/2018 Secondary ABRAN L [place] Insurance:HUMANA PERRYDOB: [facility] COMMERCIALPolicy [id number] Hospital Number: Repository [id number] Date:3728-64-93GP [address] [address]WR: 01/29/2018 Tertiary NOT GIVENUNK [place] Insurance:SELF PAY [facility] Hospital Number: Effective Repository Date:2018-01-29 01/29/2018 Sebas Swenson Primary ABRAN L [place] [id number] Insurance:MEDICARE PERRYDOB: Community [facility] PART A BPolicy Number: [id number], [place] [id number] Repository 15[address]Cdz: ([phone]) Date:2018-01-29 [phone] () 01/29/2018 Secondary ABRAN L [place] Insurance:HUMANA PERRYDOB: [facility] [id number] Hospital Number: Repository [id number] Date:6633-55-18KC [address] [address]AC: 01/29/2018 Tertiary NOT GIVENUNK [place] Insurance:SELF PAY [facility] Hospital Number: Effective Repository Date:2018-01-29 01/29/2018 Sebas Swenson Primary ABRAN L [place] [id number] Insurance:MEDICARE PERRYDOB: Community [facility] PART A BPolicy Number: [id number], [place] [id number] Repository [address]96[address]Rpy: (765) Date:2018-01-29 [phone] () 01/29/2018 Secondary ABRAN L [place] Insurance:HUMANA PERRYDOB: Community COMMERCIALPolicy [id number] Hospital Number: Repository [id number] Date:2023-77-26UY [address] [address]QL: 01/29/2018 Tertiary NOT GIVENUNK [place] Insurance:SELF PAY [facility] Hospital Number: Effective Repository Date:2018-01-29 01/27/2018 Sebas Swenson Primary ABRAN L [place] [id number] Insurance:MEDICARE PERRYDOB: Community [facility] PART A BPolicy Number: [id number], [place] [id number] Repository [address]17[address]Ogb: 330) Date:2018-01-26 [phone] () 01/27/2018 Secondary ABRAN L Christopher Insurance:HUMANA PERRYDOB: Community COMMERCIALPolicy [id number] Hospital Number: Repository [id number] Date:[id number] [address]YT: 01/27/2018 Tertiary NOT GIVENUNK [place] Insurance:SELF PAY [facility] Hospital Number: Effective Repository Date:2018-01-26 01/27/2018 Sebas Swenson Primary ABRAN L [place] [id number] Insurance:MEDICARE PERRYDOB: Community [facility] PART A BPolicy Number: [id number], [place] [id number] Repository [address]Jkn: 330) Date:2018-01-26 [phone] () 01/27/2018 Secondary ABRAN L Christopher Insurance:HUMANA PERRYDOB: Community COMMERCIALPolicy [id number] Hospital Number: Repository [id number] Date:[id number] [address]PH: 01/27/2018 Tertiary NOT GIVENUNK [place] Insurance:SELF PAY [facility] Hospital Number: Effective Repository Date:2018-01-27 01/27/2018 Sebas Swenson Primary ABRAN L [place] [id number] Insurance:MEDICARE PERRYDOB: Community [facility] PART A BPolicy Number: [id number], [place] [id number] Repository 28[address]Bfn: 330) Date:2018-01-26 [phone] () 01/27/2018 Secondary ABRAN L [place] Insurance:HUMANA PERRYDOB: [facility] [id number] Hospital Number: Repository [id number] Date:8416-75-36IP[address] [address]RQ: 01/27/2018 Tertiary NOT GIVENUNK [place] Insurance:SELF PAY [facility] Hospital Number: Effective Repository Date:2018-01-27 01/27/2018 Sebas J Primary ABRAN L [place] [id number] Insurance:MEDICARE PERRYDOB: Community [facility] PART A BPolicy Number: [id number], [place] [id number] Repository [address]12[address]Byg: 330) Date:2018-01-26 [phone] () 01/27/2018 Secondary ABRAN L [place] Insurance:HUMANA PERRYDOB: [facility] [id number] Hospital Number: Repository [id number] Date:7153-26-29KM [address] [address]WW: 01/27/2018 Tertiary NOT GIVENUNK [place] Insurance:SELF PAY [facility] Hospital Number: Effective Repository Date:2018-01-27 01/27/2018 Sebas J Primary ABRAN L [place] [id number] Insurance:MEDICARE PERRYDOB: Community [facility] PART A BPolicy Number: [id number], [place] [id number] Repository [address]Qsb: 330) Date:2018-01-26 [phone] () 01/27/2018 Secondary ABRAN L [place] Insurance:HUMANA PERRYDOB: [facility] [id number] Hospital Number: Repository [id number] Date:[id number] [address]QU: 01/27/2018 Tertiary NOT GIVENUNK [place] Insurance:SELF PAY [facility] Hospital Number: Effective Repository Date:2018-01-27 01/27/2018 Sebas J Primary ABRAN L [place] [id number] Insurance:MEDICARE PERRYDOB: Community [facility] PART A BPolicy Number: [id number], [place] [id number] Repository [address]16[address]Kyc: 330) Date:2018-01-26 [phone] () 01/27/2018 Secondary ABRAN L [place] Insurance:HUMANA PERRYDOB: [facility] [id number] Hospital Number: Repository [id number] Date:7011-70-86OE [address] [place] [address], [place] [address]OU: 01/27/2018 Tertiary NOT GIVENUNK [place] Insurance:SELF PAY [facility] Number: Effective Repository Date:2018-01-27
== END 2018-10-31 17:22 | disposition home or self-care (01) | DRG 291 ==
LOC: ED 23:50 → PCU 10-26 01:57
PROVIDERS: Internal Medicine; Internal Medicine Nephrology; Admitting Provider Internal Medicine; Emergency Provider Emergency Medicine; Family Provider Family Medicine Geriatric Medicine; PCP Family Medicine Geriatric Medicine; Visit Provider Internal Medicine
DX: I13.0 Hypertensive heart and chronic kidney disease with heart failure and stage 1 through stage 4 chronic kidney disease, or unspecified chronic kidney disease (principal); J96.01 Acute respiratory failure with hypoxia; I50.33 Acute on chronic diastolic (congestive) heart failure; J44.1 Chronic obstructive pulmonary disease with (acute) exacerbation; Z68.41 Body mass index [BMI] 40.0-44.9, adult; E87.1 Hypo-osmolality and hyponatremia; J20.8 Acute bronchitis due to other specified organisms; E78.5 Hyperlipidemia, unspecified; E66.01 Morbid (severe) obesity due to excess calories; B97.81 Human metapneumovirus as the cause of diseases classified elsewhere; N18.3 Chronic kidney disease, stage 3 (moderate); Z90.5 Acquired absence of kidney; Z79.899 Other long term (current) drug therapy; I27.20 Pulmonary hypertension, unspecified; J10.1 Influenza due to other identified influenza virus with other respiratory manifestations; E87.5 Hyperkalemia; Q68.8 Other specified congenital musculoskeletal deformities
CPT/HCPCS: 36415; 51702; 71045; 71046; 76770; 80048; 80061; 81001; 82570; 83605; 83735; 83880; 84300; 84443; 84484; 85025; 85610; 87040; 87070; 87077; 87086; 87088; 87186; 87205; 87449; 87633; 87804; 93005; 93306; 94640; 94667; 94668; 99285; J7030; J7050; A4216; J1940

== ENCOUNTER 2018-11-03 07:11 | Emergency (ER) | payer MEDICARE, OTHER, SELFPAY ==
[2018-10-26 02:50] VITALS: BMI 39.8
[2018-11-03] VITALS (9 sets, daily range): BP systolic 108–133; BP diastolic 45–75; PULSE 89–99; RESP 16–24; TEMP 36.8; O2SAT 96–100; BMI 41.8
--- NOTE | 2018-11-03 07:28 | EKG12_ITS ---
Test Reason : SOB Blood Pressure : / mmHG Vent. Rate : 093 BPM Atrial Rate : 093 BPM P-R Int : 190 ms QRS Dur : 078 ms QT Int : 338 ms P-R-T Axes : 007 -10 038 degrees QTc Int : 420 ms Poor data quality, interpretation may be adversely affected Normal sinus rhythm Possible Left atrial enlargement Borderline ECG Confirmed by SANTOS BAER ([id number]), greeting card editor LEON DURAN ([id number]) on 11/17/2018 1:53:36 PM Referred By: JESSCIA Confirmed By:SANTOS BAER
--- NOTE | 2018-11-03 07:29 | RAD_ITS ---
STUDY: X-RAY CHEST REASON FOR EXAM: Female, 78 years old COMPARISON: October 30, 2018 FINDINGS: The heart is mildly enlarged. There is pulmonary vascular congestion with heavy markings seen in the medial aspect right base possibility of atelectasis/limited infiltrate cannot be ruled out. The apices are clear. The trachea is in the midline. The visualized bones are intact. No pleural effusion or pneumothorax. RAD/Chest 1 View (Portable) IMPRESSION: Pulmonary vascular congestion with limited infiltrate/atelectasis medial aspect of the right base Electronically Signed: Felicitas Mancera, at 11:52 EST Tel , Service support ,
[2018-11-03] MEDS: Ipratropium/Albuterol Sulfate 3 ML AMPUL.NEB INHALATION (07:43)
[2018-11-03] MEDS: Albuterol 2.5 MG/3 ML VIAL.NEB. INHALATION (07:44)
--- NOTE | 2018-11-03 07:46 | ED.VISSUMM ---
- ER Visit Summary Date of Service: 11/03/18 Chief Complaint: Shortness of breath History of Present Illness: The patient is a 78 F who states that she was recently admitted into the hospital. She states that she had influenza that nobody knows anything about. She was discharged home on home oxygen. She states that during the night she was short of breath and tried aerosols and an MDI. She states that that did not help and she required transport to the hospital via ambulance. Patient also notes that she feels like her heart is palpating hard Review of the chart demonstrates that the patient was admitted with CHF as well as acute bronchitis/COPD exacerbation secondary to influenza B and human [place] pneumo virus. Upon admission she was not on home oxygen but was discharged home with oxygen. She had an echocardiogram that showed an ejection fraction of 60% and normal LV function. Noted stage I diastolic dysfunction and normal LV size. Patient's previous medical history includes congestive heart failure, COPD (patient is a active smoker) as well as hypertension, hypercholesterolemia, single kidney, and arthrogyposis. Patient states she does not know her medications. Review of the discharge instructions I do not see the patient was discharged home on steroids or antibiotics. But they were given to her in the hospital for several days for what appears to be 5 days.. Patient also had evaluation by nephrology for hyponatremia. Physical Examination: Afebrile vital signs are stable Gen: Well-nourished well-developed Head: Normocephalic atraumatic Eyes: Perrl EOMI ENT: TMs clear no rhinorrhea moist mucous membranes Neck: Supple no lymphadenopathy no JVD nontender CVS: Regular rate rhythm no murmurs normal S1-S2 Respiratory: No distress upper airway rhonchi as well as rhonchi at the bases with expiratory wheezing chest nontender Abdomen: Soft nontender nondistended normal bowel sounds no masses Back: Nontender Extremity: Chronic contractures of extremities. Noted lower extremity edema that is not pitting Neuro: alert orientated ?3 CN II-XII intact normal strength sensation reflexes gait cerebellar Psych: Normal affect normal mood Test Results: Basic labs are unremarkable. Chest x-ray do not see significant change. CT of the chest please see radiologic details. Emergency Department Course and Treatment: Patient received breathing treatment and Solu-Medrol. Patient is 98% on 2 L. The patient has been resting comfortably. I suspect she probably had a mucous plug during the night as well as palpitations from albuterol. The patient I believe can be discharged. She does not feel comfortable going home due to balance issues and leg weakness from being in the hospital. I spoke with Sarah from social work and we are attempting to get the patient transferred to intermediate facility on [address] in the late afternoon. Patient will need follow-up for the lung mass seen on CT. Impression: 1. COPD exacerbation 2. Mucus plugging 3. Lung mass This note was generated with [employer] dictation software. It may contain incorrect words, spelling, and punctuation that were not noted in review of the chart prior to signing ED Disposition - Plan for ED Patient: Disposition: Home or Assisted Living Chief Complaint: Shortness of Breath Instructions: ED COPD Flare Prescriptions: Prednisone [Deltasone] 60 mg PO DAILY #15 tab
[2018-11-03] MEDS: MethylPREDNISolone 125 MG/2 ML Vial IV (09:45)
[2018-11-03 09:59] LABS: Absolute Lymphocyte Count 1.24 X10^3/ul (0.83-4.51); Absolute Neutrophil Count 5.4 X10^3/uL (2.0-7.7); Eosinophil# 0.13 X10^3/uL; Eosinophils% 1.8 % (0-5); Hematocrit 34.2 % (37-47); Lymphocyte # 1.24 X10^3/ul (4.0); Lymphocyte % 16.8 % (19-41); Mean Corp Hgb Conc 32.2 g/gl (32-36); Mean Corpuscular Hgb 29.8 pg (27.0-32.0); Mean Corpuscular Volume 92.7 fL (81-99); Mean Platelet Vol. 9.6 fl (6.2-12.0); Monocyte# 0.53 X10^3/uL; Monocyte% 7.2 % (0-10); Neutrophil # 5.44 X10^3/uL (2.7-7.7); Neutrophil % 73.7 % (47-70); POSITIVE COUNT NO; POSITIVE DIFFERENTIAL NO; POSITIVE MORPHOLOGY NO; Platelet Count 186 K/mm3 (150-450); RBC Distribution Width CV 13.6 % (11.6-14.6); RBC Distribution Width SD 45.5 fl (35.1-43.9); Red Blood Count 3.69 M/mm3 (4.2-5.4); White Blood Count 7.4 K/mm3 (4.4-11.0)
[2018-11-03 10:08] LABS: ALB/GLOB Ratio 0.9 RATIO (0.9-2.4); AST(SGOT) 29 U/L (15-37); Alanine Aminotransfer ALT/SGPT 30 U/L (13-56); Albumin, Serum 2.6 g/dL (3.2-5.0); Alkaline Phosphatase 83 U/L (45-117); Anion Gap 8 (5-15); BUN 18 mg/dL (7-18); BUN/Creat Ratio 46.8 RATIO (10-20); Calcium,Total 7.9 mg/dL (8.5-10.1); Chloride 92 mmol/L (98-107); Creatinine, Serum 0.38 mg/dL (0.55-1.02); EST Glomerular Filtration Rate 172 mL/min (>60); Est Glom Filt Rate - Afr Amer 209 mL/min (>60); Estimated Creatinine Clearance 68.54 ml/min; Globulin 2.8 g/dL (2.2-4.2); Glucose 107 mg/dL (74-106); Potassium 4.7 mmol/L (3.5-5.1); Protein, Total 5.4 g/dL (6.4-8.2); Sodium Level 134 mmol/L (136-145)
[2018-11-03 10:22] LABS: BNP,B-Type NATRIURETIC PEPTIDE 53.2 pg/mL (0-100)
--- NOTE | 2018-11-03 12:19 | CT_ITS ---
STUDY: CT CHEST WITHOUT CONTRAST REASON FOR EXAM: Female, 78 years old. Pneumonia RADIATION DOSAGE (If Supplied By Facility): CTDIvol = ( 18.10 ) mGy, DLP = ( 574.42 ) mGycm TECHNIQUE: Transaxial imaging was performed without the administration of intravenous contrast material. Multiplanar coronal and sagittal images were reformatted. Individualized dose optimization techniques were used for this CT. COMPARISON: Chest x-ray November 03, 2018, January 26, 2018 CT scan chest. FINDINGS: There is a small left pleural effusion left lower lobe, left infrahilar dense consolidation and/or potentially mass. There are a few areas of groundglass opacity in the lungs. There is right upper and middle lobe consolidation with air bronchograms. There is a trace right effusion. There is mild to moderate cardiac enlargement there is a small pericardial effusion. Normal heart and pericardium. There are a few nonspecific perinephric lymph nodes. There is a thick-walled appearance of the tortuous esophagus with an air-fluid level at the eliseo. Normal unenhanced pulmonary arteries. There is atherosclerotic tortuosity of the aortic arch and descending thoracic aorta. There are multilevel bridging osteophytes within the thoracic vertebral bodies. There is an irregular appearance of the bilateral ribs which may represent prior procedure and or fracture. This is seen on image #55 axial views. The liver appears enlarged. There is a left pedunculated gastric mass enlarged since prior study. Mass measuring 1.7 x 1.3 cm which is enlarged since the prior study, CT abdomen and pelvis March 07, 2011 The aorta is tortuous and partially calcified. The images are exceedingly grainy especially in the upper abdomen. CT/Chest without Contrast IMPRESSION: Since January 26, 2018, There is a worsening focal masslike consolidation in the left lung base. The consideration is mass versus chronic pneumonia. There is a new since prior, right middle lobe right lower lobe infiltrate suspicious for pneumonia. Recommend follow-up PET scan. Cardiomegaly. Multilevel bridging osteophytes recommend correlation with history of ankylosing spondylosis. 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 Electronically Signed: Laisha Mcclain MD at 13:38 EST Tel , Service support ,
--- NOTE | 2018-11-03 14:32 | CM.ED ---
Addendum entered by Sarah Ibrahim 11/03/18 15:05: Social Work Note [facility] confirmed that they would not have a bed until 11/05. Informed pt that TCU does not have availability this date. Will move forward with seeking placement in [place] if its an opportunity or [facility] if willing to accept. SW to continue to follow and assist with discharge planning. SUE Ortega, KAYKAY Original Note: Social Work Note Pt was recently discharged from [facility]U on 10/31. She was admitted on that unit on 10/26 and had obtained 3 inpatient midnights qualifying her for placement through her Medicare. Introduced self and role to pt. Pt states that she would prefer to go home, but needs to be able to function. She would prefer to go to TCU if an option rather than a community facility. Placed call to [facility], TCU manager family. Left vm inquiring about bed availability. Will await a return phone call to confirm. Placed call to Beth with [facility] as well to see if pt would be a candidate. Pt gave second option of [facility]. Placed call to [facility] who will review referral. Initial referral faxed. SW to continue to follow and assist with discharge planning. SUE Ortega, KAYKAY
--- NOTE | 2018-11-03 15:48 | ED.RN ---
Nursing report called to Vianca at [facility] at [phone]. Denies questions. Mai, psychologist social faxed chart and admission paperwork. Start [facility] for transport, ETA [id number] to lease picker patient. Patient and family aware, deny further needs.
--- NOTE | 2018-11-03 15:49 | CM.ED ---
Social Work Note [facility] is able to accept pt at [facility]. Requested microbiology confirming influenza. Faxed this along with Transfer Summary, medlist and completed PAS/RR. Transfer Summary, medlist and completed PAS/RR placed in SNF packet to be transferred with pt to new facility. Nursing, physician and pt updated. Pt does need transportation setup. RN provided with number to call report and ED pathology secretary setup transport at [phone]. Notified pt and facility of discharge time. No further needs and pt to discharge to [facility] for rehabilitation. PLAN: [facility] for rehabilitation. Transported by squad at [phone]. PAS/RR completed and submitted in the HENS. Sarah Ibrahim, HAUL DRIVER, WARP KNITTING MACHINE OPERATOR
--- NOTE | 2018-11-03 16:38 | ED.RN ---
[facility] arrives at bedside. Bedside report given. Denies questions. Denies needs for help. Pt loaded up on their cart and transported to [facility].
== END 2018-11-03 16:40 | disposition home or self-care (01) ==
PROVIDERS: Emergency Provider Emergency Medicine; Family Provider Family Medicine Geriatric Medicine; PCP Family Medicine Geriatric Medicine
DX: J44.1 Chronic obstructive pulmonary disease with (acute) exacerbation (principal); T17.990A Other foreign object in respiratory tract, part unspecified in causing asphyxiation, initial encounter; X58.XXXA Exposure to other specified factors, initial encounter; Y93.9 Activity, unspecified; Y92.9 Unspecified place or not applicable; Y99.9 Unspecified external cause status; R91.8 Other nonspecific abnormal finding of lung field; I11.0 Hypertensive heart disease with heart failure; I50.9 Heart failure, unspecified; E78.00 Pure hypercholesterolemia, unspecified; R53.1 Weakness; F17.200 Nicotine dependence, unspecified, uncomplicated; Z99.81 Dependence on supplemental oxygen; Z79.82 Long term (current) use of aspirin; Z79.52 Long term (current) use of systemic steroids; Z79.899 Other long term (current) drug therapy
CPT/HCPCS: 71045; 71250; 80053; 83880; 84484; 85025; 93005; 94640; 96374; 99285; A4216

== ENCOUNTER → 2018-11-26 15:17 | Outpatient (CLI) | payer MEDICARE, OTHER, SELFPAY ==
[2018-11-03 07:14] VITALS: BMI 41.8
[2018-11-26 17:29] LABS: Anion Gap 10 (5-15); BUN 19 mg/dL (7-18); BUN/Creat Ratio 37.4 RATIO (10-20); Calcium,Total 9.6 mg/dL (8.5-10.1); Chloride 98 mmol/L (98-107); Creatinine, Serum 0.51 mg/dL (0.55-1.02); EST Glomerular Filtration Rate 125 mL/min (>60); Est Glom Filt Rate - Afr Amer 151 mL/min (>60); Glucose 91 mg/dL (74-106); Potassium 4.3 mmol/L (3.5-5.1); Sodium Level 139 mmol/L (136-145)
--- OUTSIDE RECORDS SUMMARY | 2019-01-31 14:32 | XMS RPT_ITS ---
:[address] [facility] Support Name Relationship Address Phone SAÚL GOODE Unavailable [address] + [place] [address] NÉSTOR SAENZTER Unavailable [address] + [place] [address] R Unavailable Unavailable Unavailable SAÚL GOODE Unavailable [address] + [place] [address] NÉSTOR SAENZTER Unavailable [address] + [place] [address] R Unavailable Unavailable Unavailable Saúl Goode Unavailable [address] + [place] [address] Néstor Saenzter Unavailable [address] + [place] [address] R Unavailable Unavailable Unavailable Saúl Goode Unavailable [address] + [place] [address] Néstor Saenzter Unavailable [address] + [place] [address] R Unavailable Unavailable Unavailable Saúl Goode Unavailable [address] + [place] [address] Néstor Saenzter Unavailable [address] + [place] [address] R Unavailable Unavailable Unavailable SAÚL GOODE Unavailable [address] + [place] [address] NÉSTOR SAENZTER Unavailable [address] + [place] [address] R Unavailable Unavailable Unavailable SAÚL GOODE Unavailable [address] + [place] [address] NÉSTOR SAENZTER Unavailable [address] + [place] [address] R Unavailable Unavailable Unavailable SAÚL GOODE Unavailable [address] + [place] [address] EUGENE, SEBAS Unavailable [address] + [place] [address] R Unavailable Unavailable Unavailable SAÚL GOODE Unavailable [address] + [place] [address] EUGENE, SEBAS Unavailable [address] + [place] [address] R Unavailable Unavailable Unavailable SAÚL GOODE Unavailable [address] + [place] [address] EUGENE, SEBAS Unavailable [address] + [place] [address] R Unavailable Unavailable Unavailable SAÚL GOODE Unavailable [address] + [place] [address] EUGENE, SEBAS Unavailable [address] + [place] [address] R Unavailable Unavailable Unavailable Saúl Goode Unavailable [address] + [place] [address] Eugene, Sebas Unavailable [address] + [place] [address] R Unavailable Unavailable Unavailable Saúl Goode Unavailable [address] + [place] [address] Eugene, Sebas Unavailable [address] + [place] [address] R Unavailable Unavailable Unavailable Saúl Goode Unavailable [address] + [place] [address] Eugene, Sebas Unavailable [address] + [place] [address] R Unavailable Unavailable Unavailable Saúl Goode Unavailable [address] + [place] [address] Eugene, Sebas Unavailable [address] + [place] [address] R Unavailable Unavailable Unavailable SAÚL GOODE Unavailable [address] + [place] [address] EUGENE, SEBAS Unavailable [address] + [place] [address] R Unavailable Unavailable Unavailable JAGGER, KERILYNN Unavailable [address] + [place] [address] EUGENE, SEBAS Unavailable [address] + [place] [address] R Unavailable Unavailable Unavailable JAGGER, KERILYNN Unavailable [address] + [place] [address] EUGENE, SEBAS Unavailable [address] + [place] [address] R Unavailable Unavailable Unavailable JAGGER, KERILYNN Unavailable [address] + [place] [address] EUGENE, SEBAS Unavailable [address] + [place] [address] R Unavailable Unavailable Unavailable JAGGER KERILYNN Unavailable [address] + [place] [address] EUGENE, SEBAS Unavailable [address] + [place] [address] R Unavailable Unavailable Unavailable JAGGER, KERILYNN Unavailable [address] + [place] [address] EUGENE, SEBAS Unavailable [address] + [place] [address] R Unavailable Unavailable Unavailable JAGGER, KERILYNN Unavailable [address] + [place] [address] EUGENE, SEBAS Unavailable [address] + [place] [address] R Unavailable Unavailable Unavailable JAGGER, KERILYNN Unavailable [address] + [place] [address] EUGENE, SEBAS Unavailable [address] + [place] [address] R Unavailable Unavailable Unavailable JAGGER, KERILYNN Unavailable [address] + [place] [address] EUGENE, SEBAS Unavailable [address] + [place] [address] R Unavailable Unavailable Unavailable JAGGER, KERILYNN Unavailable [address] + [place] [address] EUGENE, SEBAS Unavailable [address] + [place] [address] R Unavailable Unavailable Unavailable SAÚL GOODE Unavailable [address] + [place] [address] EUGENE, SEBAS Unavailable [address] + [place] [address] R Unavailable Unavailable Unavailable SAÚL GOODE Unavailable [address] + [place] [address] EUGENE, SEBAS Unavailable [address] + [place] [address] R Unavailable Unavailable Unavailable SAÚL GOODE Unavailable [address] + [place] [address] EUGENE, SEBAS Unavailable [address] + [place] [address] R Unavailable Unavailable Unavailable SAÚL GOODE Unavailable [address] + [place] [address] EUGENE, SEBAS Unavailable [address] + [place] [address] R Unavailable Unavailable Unavailable Care Team Providers [...] Unavailable Wei, Momo Chi Primary Care Unavailable Loiuse Chu Consulting Unavailable Donn, Neal Consulting Unavailable Wei, Momo Chi Primary Care Unavailable Orlando Shaffer Attending Unavailable Timothy Duran Attending Unavailable Timothy Duran Attending Unavailable Gamaliel Capellan Attending Unavailable Mike Rushing Referring Unavailable TimiGamaliel Attending Unavailable Donn, Neal Referring Unavailable Wei, Momo Chi Attending Unavailable Wei, Momo Chi Primary Care Unavailable Wei, Momo Chi Primary Care Unavailable Mark Hager Attending Unavailable Wei, Momo Chi Attending Unavailable Wei, Momo Chi Referring Unavailable Wei, Momo Chi Primary Care Unavailable Wei, Momo Chi Primary Care Unavailable White, Indu Admitting Unavailable Tereletsky, Catrachito Attending Unavailable Anton, Jerry Consulting Unavailable White, Indu Admitting Unavailable White, Indu Attending Unavailable Wei, Momo Chi Primary Care Unavailable White, Indu Consulting Unavailable White, Indu Admitting Unavailable Liza Rivera DIRECTOR OF OPTIMIZATION-C Attending Unavailable Wei, Momo Chi Primary Care [...] Unavailable Wei, Momo Chi Primary Care Unavailable PROBLEMS PROBLEMS DATE TYPE CONDITION / CODE ATTENDING STATUS SOURCE 12/05/2018 Unknown I50.33 - Acute on Wei, Momo Chi Active [facility] chronic diastolic Community (congestive) heart Hospital failure / Repository I50.33(ICD-10) 10/31/2018 Unknown Z90.5 - Acquired Neal Pop Active [facility] absence of kidney / Community Z90.5(ICD-10) Hospital Repository 11/20/2018 Unknown R94.31 - Abnormal TimiGamaliel marcial Active [facility] electrocardiogram Community [ECG] [EKG] / Hospital R94.31(ICD-10) Repository PROCEDURES PROCEDURES No Procedure Records FoundRESULTS RESULTS VENOUS DUPLEX LOWER Observed: 12/03/2018 Status: F Source: [place] EXTREMITY 7:13 PM [facility] REPOSITORY [facility] Cardiovascular Services [address] [place] [address] Venous Duplex US, Unilateral 12/03/18 1349 MR#: [id number] Acct: [id number] Name: ABRAN SAENZ Rep #: [id number] : 1940 78 From: Prosper Miranda MD Attending Dr: Status: DEP ER Ordering Dr: Mark Hager MD Date: 12/03/18 Location: ED Sex: F C Admitted: Reason For Study: RLE swelling RIGHT GSV is normal. CFV is compressible, spontaneous, phasic, competent and demonstrates normal augmentation. FV is compressible, spontaneous, phasic, competent and demonstrates normal augmentation. POP V is compressible, spontaneous, phasic, competent and demonstrates normal augmentation. T/P Trunk is compressible. PTV is compressible. RT PerV is compressible. Procedure Exam performed portable in ED. The study was technically difficult. A preliminary report was called and/or faxed to Dr. Hager AND ED. Interpretation Summary There is no evidence of right lower extremity deep vein thrombosis. Right greater saphenous vein appears patent and compressible segmentally. Ordering Physician: Mark Hager Referring Physician: Momo Carvajal Chi Performed By: Irasema Weber, NIDHI, RVT 12/03/181912 Date Prosper Miranda MD CC: Mark Hager MD; Momo Carvajal MD Date Dictated: 12/03/18 1349 Date Transcribed: 12/03/181912 Mica Miner: Signed DISCHARGE INSTRUCTION Observed: 12/03/2018 Status: F Source: [place] 3:27 PM [facility] Medical Records Department [address] [place] [address] Discharge Instruction 12/03/18 1504 MR#: [id number] Acct: [id number] Name: ABRAN SAENZ Rep #: [id number] : 1940 78 From: Mark Hager MD [...] your Primary Care Provider. Call [facility] ([phone]) or report to the closest Emergency Room. Call 911 if necessary. 12/03/18 1527 <Electronically signed by Mark Hager MD> Date Mark Hager MD Cosigner Signature (If Indicated): Date CC: Mmoo Carvajal MD EMERGENCY DEPARTMENT Observed: 12/03/2018 Status: F Source: [place] SUMMARY 3:27 PM [facility] Medical Records Department [address] [place] [address] Emergency Department Summary 12/03/18 1247 MR#: [id number] Acct: [id number] Name: ABRAN SAENZ Rep #: [id number] : 1940 78 From: Mark Hager MD [...] has had recent hospitalization and admission. Recent correction admission. She denies any chest pain or [...] right leg showed no DVT per the clinical office technician. EKG sinus rhythm rate of 70 with a first-degree AV block otherwise unremarkable. No signs of AZ or ischemia. CBC shows a normal white [...] and hyperkalemia. This note was generated with [employer]ars[employer] dictation software. It may contain incorrect words, [...] problems, contact your Primary Care Provider. Call [facility] ([phone]) or report to the closest Emergency Room. Call 911 if necessary. 12/03/18 2843 <Electronically signed by Mark Hager MD> Date Mark Hager MD Cosigner Signature (If Indicated): Date CC: Momo Carvajal MD URINALYSIS, COMPLETE Collected: 12/03/2018 Status: F Source: [place] 2:05 PM [facility] Order Comment: How was Urine Obtained? BUSINESS ANALYST CONSULTANT TO SPECIFY TYPE CODE TESTS RESULT OUT [...] URINE SEEN Performed By: #### L400.0001 #### [facility] [address] [place], [address] CBC W/DIFF, AUTOMATED Collected: 12/03/2018 Status: F Source: [place] 1:40 PM [facility] TYPE CODE TESTS RESULT OUT OF [...] Lymph 1.15 Performed By: #### L100.0100 #### [facility] [address] [place], [address] BASIC METABOLIC Collected: 12/03/2018 Status: F Source: [place] PROFILE ([facility]) 1:40 PM [facility] TYPE CODE TESTS RESULT OUT OF [...] 7 Performed By: #### L500.2500, L501.4010 #### [facility] [address] [facility]. [place], [place], [address] TROPONIN-I Collected: 12/03/2018 Status: F Source: [place] 1:40 PM [facility] TYPE CODE TESTS RESULT OUT OF RANGE REFERENCE UNITS LAB L501.4010 <0.045 ng/mL Normal < 0.015 TROPONIN-I Result Comment: TROPONIN-I EXPECTED VALUES <0.045 Negative 0.045 - 0.590 Consistent with Cardiac Damage > OR = 0.600 Critical Value Not every elevated troponin is indicative of AZ. These values should be used with clinical judgement in examining the patient's clinical picture for diagnosis. To establish a diagnosis of AZ versus myocardial injury, there must be a demonstrated rise and/or fall in the troponin values, in addition to ischemic symptoms, EKG changes, new regional wall motion abnormality, and/or angiographical evidence. PLEASE NOTE: REFERENCE RANGES EDITED 18 Performed By: #### L500.2500, L501.4010 #### [facility] [address] [place], [place], [id number] BNP,B-TYPE NATRIURETIC Collected: 12/03/2018 Status: F Source: [place] PEPTIDE 1:40 PM [facility] TYPE CODE TESTS RESULT OUT OF RANGE REFERENCE UNITS LAB L503.6620 0-100 pg/mL High B-TYPE 120.4 THOMAS PEP Performed By: #### L503.6620 #### [facility] [address] [place], [address] CHEST PA AND LATERAL Observed: 12/03/2018 Status: F Source: [place] 12:46 PM [facility] REPOSITORY [facility] Imaging Services [address] [place] [address] Chest PA and Lateral MR#: [id number] Acct: [id number] Name: ABRAN SAENZ Rep #: [id number] : 1940 F 78 From: Angel Kyle MD PCP: Wei PRYOR,Momo Pfeiffer Status: REG ER Study: Chest PA and Lateral Date of Exam: 12/03/18 Exam# [id number] Ordering Dr: Mark Hager MD STUDY: X-RAY [...] CC: Mark Hager MD; Momo Carvajal MD Mica Miner: Signed BASIC METABOLIC Collected: 11/26/2018 Status: F Source: [place] PROFILE (BMP) 3:19 PM [facility] TYPE CODE TESTS RESULT OUT OF [...] GAP 10 Performed By: #### L500.2500 #### [facility] [address] [facility] [place], [address] EMERGENCY DEPARTMENT Observed: 11/18/2018 Status: F Source: [place] SUMMARY 1:14 AM [facility] Medical Records Department [address] [place] [address] Emergency Department Summary 11/03/18 0746 MR#: [id number] Acct: [id number] Name: ABRAN SAENZ Rep #: [id number] : 1940 78 From: Orlando Shaffer DO PCP: Wei PRYOR,Momo Pfeiffer Status: DEP ER - ER Visit Summary [...] attempting to get the patient transferred to intermediate facility on [address] in the late afternoon. Patient will need follow-up for the lung mass seen on CT. Impression: 1. COPD exacerbation 2. Mucus plugging 3. Lung mass This note was generated with Korbitation software. It may contain incorrect words, spelling, [...] problems, contact your Primary Care Provider. Call [facility] ([phone]) or report to the closest Emergency Room. Call 911 if necessary. 11/18/18 0114 <Electronically signed by Orlando Shaffer DO> Date Orlando Shaffer DO Cosigner Signature (If Indicated): Date CC: Momo Carvajal MD 12 LEAD ELECTROCARDIOGRAM Observed: 11/17/2018 Status: F Source: [place] 1:54 PM [facility] Cardiovascular Services [address] [place] [address] 12 Lead EKG 11/03/18 0748 MR#: [id number] Acct: [id number] Name: ABRAN SAENZ Rep #: [id number] : 1940 78 From: Orlando Baer MD [...] enlargement Borderline ECG Confirmed by ORLANDO BAER ([id number]), editor department LEON DURAN ([id number]) on 11/17/2018 1:53:36 PM Referred By: JESSICA Confirmed By:ORLANDO BAER 11/17/18 1353 Date Orlando Baer MD CC: Orlando Shaffer DO; Momo Carvajal MD Signed CBC-COMPLETE BLOOD CNT Collected: 11/14/2018 Status: F Source: [place] NO DIFF 8:00 AM [facility] Order Comment: 401 TYPE CODE TESTS [...] MPV 9.6 Performed By: #### L100.0500 #### [facility] [address] [place], [place], [address] BASIC METABOLIC Collected: 11/14/2018 Status: F Source: [place] PROFILE (BMP) 8:00 AM [facility] Order Comment: 401 TYPE CODE TESTS [...] GAP 8 Performed By: #### L500.2500 #### [facility] [address] [place], [place], [address] CBC-COMPLETE BLOOD CNT Collected: 11/07/2018 Status: F Source: [place] NO DIFF 8:00 AM [facility] Order Comment: 401 TYPE CODE TESTS [...] MPV 10.5 Performed By: #### L100.0500 #### [facility] [address] [place], [address] BASIC METABOLIC Collected: 11/07/2018 Status: F Source: [place] PROFILE (BMP) 8:00 AM [facility] Order Comment: 401 TYPE CODE TESTS [...] GAP 7 Performed By: #### L500.2500 #### [facility] [address] [place], [address] CHEST WITHOUT Observed: 11/03/2018 Status: F Source: [place] CONTRAST 12:20 PM [facility] Imaging Services [address] [place] [address] Chest without Contrast MR#: [id number] Acct: [id number] Name: ABRAN SAENZ Rep #: [id number] : 1940 F 78 From: Laisha Mcclain MD PCP: Wei PRYOR,Momo Pfeiffer Status: REG ER Study: Chest without Contrast Date of Exam: 11/03/18 Exam# [id number] Ordering Dr: Orlando Shaffer DO STUDY: CT [...] CC: Orlando Shaffer DO; Momo Carvajal MD Mica Miner: Signed CBC W/DIFF, AUTOMATED Collected: 11/03/2018 Status: F Source: [place] 9:40 AM [facility] TYPE CODE TESTS RESULT OUT OF [...] Lymph 1.24 Performed By: #### L100.0100 #### [facility] [place], [address] COMPREHENSIVE METABOLIC Collected: 11/03/2018 Status: F Source: [facility] 9:40 AM [facility] TYPE CODE TESTS RESULT OUT OF [...] 8 Performed By: #### L500.4050, L501.4010 #### [facility] [address] [place], [address] TROPONIN-I Collected: 11/03/2018 Status: F Source: [place] 9:40 AM [facility] TYPE CODE TESTS RESULT OUT OF RANGE REFERENCE UNITS LAB L501.4010 <0.045 ng/mL Normal < 0.015 TROPONIN-I Result Comment: TROPONIN-I EXPECTED VALUES <0.045 Negative 0.045 - 0.590 Consistent with Cardiac Damage > OR = 0.600 Critical Value Not every elevated troponin is indicative of AZ. These values should be used with clinical judgement in examining the patient's clinical picture for diagnosis. To establish a diagnosis of AZ versus myocardial injury, there must be a demonstrated rise and/or fall in the troponin values, in addition to ischemic symptoms, EKG changes, new regional wall motion abnormality, and/or angiographical evidence. PLEASE NOTE: REFERENCE RANGES EDITED 18 Performed By: #### L500.4050, L501.4010 #### [facility] [address] [place], [address] BNP,B-TYPE NATRIURETIC Collected: 11/03/2018 Status: F Source: [place] PEPTIDE 9:40 AM [facility] TYPE CODE TESTS RESULT OUT OF RANGE REFERENCE UNITS LAB L503.6620 0-100 pg/mL Normal B-TYPE 53.2 THOMAS PEP Performed By: #### L503.6620 #### [facility] [address] [place], [address] CHEST 1 VIEW Observed: 11/03/2018 Status: F Source: [place] (PORTABLE) 7:31 AM [facility] Imaging Services [address] [place] [address] Chest 1 View (Portable) MR#: [id number] Acct: [id number] Name: ABRAN SAENZ Rep #: [id number] : 1940 F 78 From: Felicitas Mancera MD PCP: Momo Carvajal MD, Chi Status: REG ER Study: Chest 1 View (Portable) Date of Exam: 11/03/18 Exam# [id number] Ordering Dr: Orlando Shaffer DO STUDY: X-RAY [...] CC: Orlando Shaffer DO; Momo Carvajal MD Mica Miner: Signed DISCHARGE SUMMARY Observed: 10/31/2018 Status: F Source: [place] 2:35 PM [facility] REPOSITORY [facility] Medical Records Department [address] [place] [address] Discharge Summary 10/31/18 1117 MR#: [id number] Acct: [id number] Name: ABRAN SAENZ Rep #: [id number] : 1940 78 From: Neal Pop MD PCP: Momo Carvajal MD, Chi Status: ADM IN Y Location: [place] [id number] ADDENDUM by Neal Pop MD on 10/31/18 [...] with viral bronchitis influenza B and human [place] pneumo virus with suspicion of possible bacterial [...] with mild proteinuria, mild hyperkalemia and hyponatremia: Sock Boarder Dr. Chu was consulted. UA was done by scratcher. UA shows protein 30, LE 500, RBC 5200, WBC 0-5, random sodium 7 and creatinine 30. Specific gravity 1.01 normal. Patient was given Kayexalate for K5.8. Repeat potassium is 4.1. Sodium is still low at 128. Sock Boarder recommended to continue IV fluid. Patient wants to go home. Patient was advised follow-up BMP on 11/03/[address] Carvajal. This was discussed with scratcher Dr. Chu. 3. Acute COPD exacerbation, probably secondary to influenza B and human [place] viral bronchitis: Patient has seen Dr. Barrow before, not following with refrigeration lead, on IV solumedrol, breathing treatments, oral azithromycin, [...] 88.3 H, Lymph % (Auto) 5.2 L, [place] % (Auto) 5.6, Eos % (Auto) 0.1, [...] applicable Code Visit Inpatient E AND M: 20922 Disch Hosp 10/31/18 1308 <Electronically signed by Neal Pop MD> Date Neal Pop MD Cosigner Signature (if applicable): Date CC: Neal Pop MD; Momo Carvajal MD Signed 12 LEAD ELECTROCARDIOGRAM Observed: 10/31/2018 Status: F Source: [place] 2:12 PM [facility] Cardiovascular Services [address] [place] [address] 12 Lead EKG 10/29/18 0853 MR#: [id number] Acct: [id number] Name: ABRAN SAENZ Rep #: [id number] : 1940 78 From: Gamaliel Capellan MD Attending Dr: Neal Pop MD Status: ADM IN Ordering Dr: Neal Pop MD Date: 10/29/18 Location: [facility] Sex: F C Admitted: 10/26/18 Test [...] UNCONFIRMED Confirmed by GAMALIEL CAPELLAN MD ([id number]), editor department LEON DURAN (56) on 10/31/2018 2:11:58 PM Referred By: DONN Confirmed By:GAMALIEL CAPELLAN MD 10/31/18 1412 Date Gamaliel Capellan MD CC: Neal Pop MD; Momo Carvajal MD Signed DISCHARGE INSTRUCTION Observed: 10/31/2018 Status: F Source: [place] 1:09 PM [facility] Medical Records Department [address] [place] [address] Instructions for Home/Discharge Instructions 10/31/18 1115 MR#: [id number] Acct: [id number] Name: ABRAN SAENZ Rep #: [id number] : 1940 78 From: Neal Pop MD [...] in: On 11/03 with BMP for hyponatremia Test Results: [...] F Source: [place] CULTURE, SPUTUM 12:10 PM [facility]OSP[facility] REPOSITORY Gram Stain Acceptable Specimen? Yes (<25 Epithelial cells per/lpf) Gram Stain 3+ Gram positive cocci 1+ Gram positive rods Rare White Blood Cells Resp. Culture Mixed normal respiratory yesika. No Haemophilus, Streptococcus pneumoniae, beta-hemolytic Streptococcus or Staphylococcus aureus isolated. Performed By: #### M100.0800 #### [facility] [address] [place], [address] BASIC METABOLIC Collected: 10/31/2018 Status: F Source: [place] PROFILE (BMP) 5:34 AM [facility] TYPE CODE TESTS RESULT OUT OF [...] GAP 10 Performed By: #### L500.2500 #### [facility] [address] [place], [address] CBC W/DIFF, AUTOMATED Collected: 10/31/2018 Status: F Source: [place] 5:34 AM [facility] TYPE CODE TESTS RESULT OUT OF [...] Lymph 0.47 Performed By: #### L100.0100 #### [facility] [address] [facility], [address] CONSULTATION Observed: 10/30/2018 Status: F Source: [place] 9:29 PM [facility] Medical Records Department [address] [place] [address] Consultation 10/29/18 1204 MR#: [id number] Acct: [id number] Name: ABRAN SAENZ Rep #: [id number] : 1940 78 From: Louise Chu DO PCP: Wei PRYOR,Momo Pfeiffer Status: ADM IN Y Location: [facility] [id number] Consultation - Renal 10/29/18 PCP/ Referring MD: [...] mg Albuterol/Ipratropium (Duoneb) 3 ml INHALATION Q4HWA.RT [facility] Last Admin: 10/29/18 10:59 Dose: 3 ml Aspirin (Aspirin, Baby) 81 mg PO DAILY@0800 [id number] Last Admin: 10/29/18 08:52 Dose: 81 mg Atorvastatin Calcium (Lipitor) 80 mg PO QHS [facility] Last Admin: 10/28/18 21:06 Dose: 80 mg Benzonatate (Tessalon Perle) 200 mg PO TID [facility] Calcium/Vitamin D (Os-Guillermo 500mg + D) 1 tablet PO DAILY [facility] Last Admin: 10/29/18 08:52 Dose: 1 tablet Dibucaine (Dibucaine) 1 applic TOPICAL 4X/DAY PRN PRN PRN Reason: anal pain Enoxaparin Sodium (Lovenox) 40 mg SC DAILY [facility] Last Admin: 10/29/18 08:52 Dose: Not Given Furosemide (Lasix) 40 mg IV Q12H [facility] Guaifenesin (Mucinex) 1,200 mg PO BID [facility] Sodium Chloride () 250 mls @ 15 mls/hr IV .[id number] PRN PRN Reason: SALINE FLUSH Last Admin: 10/26/18 17:14 Dose: 15 mls/hr Lisinopril (Zestril) 5 mg PO DAILY [facility] Last Admin: 10/29/18 08:52 Dose: 5 mg Methylprednisolone (Solu-Medrol) 40 mg IV Q8 [facility] Last Admin: 10/29/18 05:42 Dose: 40 mg Oseltamivir Phosphate (Tamiflu) 30 mg PO BID [facility] Stop: 10/31/18 22:01 Last Admin: 10/29/18 08:52 [...] F Source: CHRISTOPHER LEGIONELLA ANTIGEN 1:20 PM [facility] Interface Comments: use off of urine already collected Legionella, UR Legionella Antigen result interpretation: Negative Presumptive negative for Legionella pneumophila serogroup 1 antigen in urine, suggesting no recent or current infection. Legionella Ag, Urine Negative (See interpretation below) Performed By: #### M300.4500 #### [facility] [place], [address] STREP Observed: 10/30/2018 Status: F Source: CHRISTOPHER PNEUMONIAE ANTIG(UR,CSF) 1:20 PM [facility] REPOSITORY Interface Comments: use of of urine [...] interpretation below) Performed By: #### M300.4600 #### [facility] [address] [place], [address] Observed: 10/30/2018 Status: F Source: BL[place] CULTURE, URINE 1:20 PM [facility] REPOS[facility]ORY Comments: add to UA please Urine Culture ORGANISM 1: Enterococcus faecalis Stella Count 50,000-80,000 Enterococcus faecalis: REACTION Ampicillin $ <=2 S Benzylpenicillin NF 4 S Gentamicin SYN-S S Linezolid $$$$ 2 S Tigecycline $$$$ <=0.12 S Streptomycin $ SYN-R R Vancomycin $ 1 S (NF) indicates non-formulary drug at [facility]. Approval by Infectious Disease Specialist required before non-formulary drugs may be ordered and/or dispensed. * CLSI guidelines does not recommend testing of cephalosporins. This interpretation is deduced from Beta-lactam/penicillin results. Performed By: #### M100.0650 #### [facility] [address] [place], [address] CHEST PA AND LATERAL Observed: 10/30/2018 Status: F Source: BLOUNT 12:21 PM [facility] Imaging Services [address] [place] [address] Chest PA and Lateral MR#: [id number] Acct: [id number] Name: ABRAN SAENZ Rep #: [id number] : 1940 F 78 From: Gilson Poole MD PCP: Wei PRYOR,[facility] Status: ADM IN Study: Chest PA and Lateral Date of Exam: 10/30/18 Exam# [id number] Ordering Dr: Neal Pop MD STUDY: X-RAY [...] CC: Neal Pop MD; Momo Carvajal MD Mica Miner: Signed BNP,B-TYPE NATRIURETIC Collected: 10/30/2018 Status: F Source: CHRISTOPHER PEPTIDE 7:50 AM [facility] TYPE CODE TESTS RESULT OUT OF RANGE REFERENCE UNITS LAB L503.6620 0-100 pg/mL Normal B-TYPE 66.1 THOMAS PEP Performed By: #### L503.6620 #### [facility] [address] [place], [place], [id number] BASIC METABOLIC Collected: 10/30/2018 Status: F Source: CHRISTOPHER PROFILE (BMP) 7:50 AM [facility] TYPE CODE TESTS RESULT OUT OF [...] GAP 12 Performed By: #### L500.2500 #### [facility] [address] [place], [address] BASIC METABOLIC Collected: 10/29/2018 Status: F Source: [place] PROFILE ([facility]) 6:00 PM [facility] TYPE CODE TESTS RESULT OUT OF [...] GAP 11 Performed By: #### L500.2500 #### [facility] [address] [facility] [place], [address] 12 LEAD ELECTROCARDIOGRAM Observed: 10/29/2018 Status: F Source: BLOUNT 3:29 PM [facility] RE[facility]ITORY [facility] Cardiovascular Services [address] [place] [address] 12 Lead EKG 10/25/18 2332 MR#: [id number] Acct: [id number] Name: ABRAN SAENZ Rep #: [id number] : 1940 78 From: Gamaliel Capellan MD [facility] Dr[facility] Status: ADM IN Ordering Dr: Juan Khalil MD Date: 10/25/18 Location: U Sex: F C Admitted: 10/26/18 Test Reason [...] ECG Confirmed by GAMALIEL CAPELLAN MD ([id number]), editor department LEON DURAN ([id number]) on 10/29/2018 3:29:24 PM Referred By: TOM Confirmed By:GAMALIEL CAPELLAN MD 10/29/18 1529 Date Gamaliel aCpellan MD CC: Juan Khalil MD; Neal Pop MD; Momo Carvajal MD Signed URINALYSIS, COMPLETE Collected: 10/29/2018 Status: F Source: CHRISTOPHER 1:20 PM [facility] Order Comment: How was Urine Obtained? BUSINESS ANALYST CONSULTANT TO SPECIFY TYPE CODE TESTS RESULT OUT [...] MUCUS, URINE Performed By: #### L400.0001 #### [facility] [address] [place], [place], [address] URINE SODIUM Collected: 10/29/2018 Status: F Source: CHRISTOPHER 1:20 PM [facility] TYPE CODE TESTS RESULT OUT OF RANGE REFERENCE UNITS LAB L501.5500 Not Establ. mmol/L Normal UR NA 7 Performed By: #### L501.5500 #### [facility] [address] [place], [place], [address] CREATININE, URINE Collected: 10/29/2018 Status: F Source: CHRISTOPHER (RANDOM) 1:20 PM [facility] TYPE CODE TESTS RESULT OUT OF RANGE REFERENCE UNITS LAB L501.1200 NO RANGE EST. mg/dL Normal UR CREAT 30.40 Performed By: #### L501.1200 #### [facility] [address] [place], [address] BASIC METABOLIC Collected: 10/29/2018 Status: F Source: CHRISTOPHER PROFILE (BMP) 1:02 PM [facility] TYPE CODE TESTS RESULT OUT OF [...] GAP 10 Performed By: #### L500.2500 #### [facility] [address] [place], [address] KIDNEY AND BLADDER Observed: 10/29/2018 Status: F Source: CHRISTOPHER 12:14 PM [facility] [place] [address] Kidney and Bladder MR#: [id number] Acct: [id number] Name: ABRAN SAENZ Rep #: [id number] : 1940 F 78 From: Jonny Andrade MD PCP: Momo Carvajal MD, Chi Status: ADM IN Study: Kidney and Bladder Date of Exam: 10/29/18 Exam# [id number] Ordering Dr: Louise Chu DO STUDY: RENAL [...] CC: Louise Chu DO; Momo Carvajal MD Mica Miner: Signed BASIC METABOLIC Collected: 10/29/2018 Status: F Source: CHRISTOPHER PROFILE (BMP) 5:45 AM [facility] TYPE CODE TESTS RESULT OUT OF [...] 9 Performed By: #### L500.2500, L501.5200 #### [facility] [address] [place], [address] MAGNESIUM Collected: 10/29/2018 Status: F Source: CHRISTOPHER 5:45 AM [facility] TYPE CODE TESTS RESULT OUT OF RANGE REFERENCE UNITS LAB L501.5200 1.6-2.6 mg/dL Normal MG 1.9 Performed By: #### L500.2500, L501.5200 #### [facility] [address] [place], [address] CHEST PA AND LATERAL Observed: 10/28/2018 Status: F Source: CHRISTOPHER 12:30 PM [facility] Imaging Services [address] [place] [address] Chest PA and Lateral MR#: [id number] Acct: [id number] Name: ABRAN SAENZ Rep #: [id number] : 1940 F 78 From: Jonny Andrade MD PCP: Momo Carvajal MD, Chi Status: ADM IN Study: Chest PA and Lateral Date of Exam: 10/28/18 Exam# [id number] Ordering Dr: Neal Pop MD STUDY: X-RAY [...] CC: Neal Pop MD; Momo Carvajal MD Mica Miner: Signed ECHOCARDIOGRAM COMPLETE Observed: 10/27/2018 Status: F Source: CHRISTOPHER 4:15 PM [facility] REPOSIT[facility] Cardiovascular Services [address] [place] [address] Echo Complete 10/27/18 1128 MR#: [id number] Acct: [id number] Name: ABRAN SAENZ Rep #: [id number] : 1940 78 From: Gamaliel Capellan MD Attending Dr: Neal Pop MD Status: ADM IN Ordering Dr: Mike Rushing MD Date: 10/26/18 Location: [facility] Sex: F C Admitted: 10/26/18 Reason [...] Pop MD; Momo Carvajal MD Date Dictated: 10/27/18 1128 Date Transcribed: 10/27/18 1614 Mica Miner: Signed BASIC METABOLIC Collected: 10/27/2018 Status: F Source: CHRISTOPHER PROFILE (BMP) 5:15 AM [facility] TYPE CODE TESTS RESULT OUT OF [...] GAP 9 Performed By: #### L500.2500 #### [facility] [address] [place], [address] CBC W/DIFF, AUTOMATED Collected: 10/27/2018 Status: F Source: BLOUNT 5:15 AM [facility] TYPE CODE TESTS RESULT OUT OF [...] MORPH LARGE Performed By: #### L100.0100 #### [facility] [address] [facility]. [place], [place], [address] Observed: 10/26/2018 Status: F Source: [place] INFLUENZA A+B (RAPID 1:30 PM [facility]) REPOSITORY FLU A/B Rapid Negative test results should be confirmed by culture. Order Rapid Viral Culture for Influenzae A+B (202773) if clinically indicated. Influenza Ag, Direct Presumptive NEGATIVE for Influenza A/B Antigen (See Note) Performed By: #### M101.0101, M100.638 #### [facility] [address] [place], [address] Observed: 10/26/2018 Status: F Source: BLOUNT RESPIRATORY PANEL 1:30 PM [facility] MOLECULAR REPOSITORY RP PANEL Normal Reference Range = Not Detected RESULTS CALLED TO NOVA/U 10/27/18 1106 Nelia Mendiola. Copy of report sent to Infection Control Printer MS#[id number] 10/27/18 1101 MAURO. ADENOVIRUS Not Detected HUMAN METAPHNEUMO Positive [...] META Performed By: #### M101.0101, M100.638 #### [facility] [address] [place], [address] TROPONIN-I Collected: 10/26/2018 Status: F Source: BLOUNT 10:46 AM [facility] RE[facility] Order Comment: 'TROP' Serial specimen #1, #2 or #3: 3 TYPE CODE TESTS RESULT OUT OF RANGE REFERENCE UNITS LAB L501.4010 <0.045 ng/mL Normal < 0.015 TROPONIN-I Result Comment: TROPONIN-I EXPECTED VALUES <0.045 Negative 0.045 - 0.590 Consistent with Cardiac Damage > OR = 0.600 Critical Value Not every elevated troponin is indicative of AZ. These values should be used with clinical judgement in examining the patient's clinical picture for diagnosis. To establish a diagnosis of AZ versus myocardial injury, there must be a demonstrated rise and/or fall in the troponin values, in addition to ischemic symptoms, EKG changes, new regional wall motion abnormality, and/or angiographical evidence. PLEASE NOTE: REFERENCE RANGES EDITED 18 Performed By: #### L501.4010 #### [facility] [address] [place], [address] TROPONIN-I Collected: 10/26/2018 Status: F Source: BLOUNT 7:30 AM [facility] Order Comment: 'TROP' Serial specimen #1, #2 or #3: 2 TYPE CODE TESTS RESULT OUT OF RANGE REFERENCE UNITS LAB L501.4010 <0.045 ng/mL Normal < 0.015 TROPONIN-I Result Comment: TROPONIN-I EXPECTED VALUES <0.045 Negative 0.045 - 0.590 Consistent with Cardiac Damage > OR = 0.600 Critical Value Not every elevated troponin is indicative of AZ. These values should be used with clinical judgement in examining the patient's clinical picture for diagnosis. To establish a diagnosis of AZ versus myocardial injury, there must be a demonstrated rise and/or fall in the troponin values, in addition to ischemic symptoms, EKG changes, new regional wall motion abnormality, and/or angiographical evidence. PLEASE NOTE: REFERENCE RANGES EDITED 18 Performed By: #### L501.4010 #### [facility] [address] [place], [address] PROTHROMBIN TIME W/INR Collected: 10/26/2018 Status: F Source: BLOUNT 5:00 AM [facility] TYPE CODE TESTS RESULT OUT OF RANGE REFERENCE UNITS LAB L300.4150 11.7-14.9 SECONDS Normal PROTIME 12.9 LAB L300.4204 Normal INR 1.0 Performed By: #### L300.3900 #### [facility] [address] [place], [address] CBC W/DIFF, AUTOMATED Collected: 10/26/2018 Status: F Source: BLOUNT 5:00 AM [facility] TYPE CODE TESTS RESULT OUT OF [...] Lymph 0.60 Performed By: #### L100.0100 #### [facility] [address] [place], [address] BASIC METABOLIC Collected: 10/26/2018 Status: F Source: [place] PROFILE (BMP) 5:00 AM [facility] Order Comment: 'TROP' Serial specimen #1, [...] L500.2500, L500.4100, L501.4010, L501.5200, L501.9520, L503.6620 #### [facility] [address] [place], [place], [address] LIPID PROFILE Collected: 10/26/2018 Status: F Source: BLOUNT 5:00 AM [facility] Order Comment: 'TROP' Serial specimen #1, [...] L500.2500, L500.4100, L501.4010, L501.5200, L501.9520, L503.6620 #### [facility] [address] [place], [place], [address] TROPONIN-I Collected: 10/26/2018 Status: F Source: BLOUNT 5:00 AM [facility] Order Comment: 'TROP' Serial specimen #1, #2 or #3: 1 TYPE CODE TESTS RESULT OUT OF RANGE REFERENCE UNITS LAB L501.4010 <0.045 ng/mL Normal < 0.015 TROPONIN-I Result Comment: TROPONIN-I EXPECTED VALUES <0.045 Negative 0.045 - 0.590 Consistent with Cardiac Damage > OR = 0.600 Critical Value Not every elevated troponin is indicative of AZ. These values should be used with clinical judgement in examining the patient's clinical picture for diagnosis. To establish a diagnosis of AZ versus myocardial injury, there must be a demonstrated rise and/or fall in the troponin values, in addition to ischemic symptoms, EKG changes, new regional wall motion abnormality, and/or angiographical evidence. PLEASE NOTE: REFERENCE RANGES EDITED 18 Performed By: #### L500.2500, L500.4100, L501.4010, L501.5200, L501.9520, L503.6620 #### [facility] [address] [place], [place], [address] MAGNESIUM Collected: 10/26/2018 Status: F Source: CHRISTOPHER 5:00 AM [facility] Order Comment: 'TROP' Serial specimen #1, #2 or #3: 1 TYPE CODE TESTS RESULT OUT OF RANGE REFERENCE UNITS LAB L501.5200 1.6-2.6 mg/dL Normal MG 2.0 Performed By: #### L500.2500, L500.4100, L501.4010, L501.5200, L501.9520, L503.6620 #### [facility] [address] [place], [place], [address] THYROID STIM HORMONE Collected: 10/26/2018 Status: F Source: CHRISTOPHER (TSH) 5:00 AM [facility] Order Comment: 'TROP' Serial specimen #1, #2 or #3: 1 TYPE CODE TESTS RESULT OUT OF RANGE REFERENCE UNITS LAB L501.9520 0.358-3.74 uIU/mL Normal TSH 1.11 Performed By: #### L500.2500, L500.4100, L501.4010, L501.5200, L501.9520, L503.6620 #### [facility] [address] [place], [place], [address] BNP,B-TYPE NATRIURETIC Collected: 10/26/2018 Status: F Source: CHRISTOPHER PEPTIDE 5:00 AM [facility] TYPE CODE TESTS RESULT OUT OF RANGE REFERENCE UNITS LAB L503.6620 0-100 pg/mL Normal B-TYPE 98.3 THOMAS PEP Performed By: #### L500.2500, L500.4100, L501.4010, L501.5200, L501.9520, L503.6620 #### [facility] [address] [place], [address] HISTORY AND PHYSICAL Observed: 10/26/2018 Status: F Source: [place] EXAM 4:22 AM [facility] Medical Records Department [address] [place] [address] History and Physical 10/26/18 0405 MR#: [id number] Acct: [id number] Name: ABRAN SAENZ Rep #: [id number] : 1940 78 From: Mike Rushing MD PCP: Wei PRYOR,Momo Pfeiffer Status: ADM IN Location: [place] [address] Problem List (1) Acute congestive heart failure [...] youth. 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 Lives: Spouse/ Significant Other Smoking Status: [...] lovenox Code Visit Inpatient E AND M: [id number] Init Hosp L3 10/26/18 0422 <Electronically signed by Mike Rushing MD> Date Mike Rushing MD Cosigner Signature: Date (if applicable) CC: Mike Rushing MD; Momo Carvajal MD Signed EMERGENCY DEPARTMENT Observed: 10/26/2018 Status: F Source: BL[place] SUMMARY 1:33 AM [facility] RE[facility] Medical Records Department [address] [place] [address] Emergency Department Summary 10/26/18 0128 MR#: [id number] Acct: [id number] Name: ABRAN SAENZ Rep #: [id number] : 1940 78 From: Juan Khalil MD [...] CHF exacerbation This note was generated with [employer] dictation software. It may contain incorrect words, [...] your Primary Care Provider. Call [facility] ([phone]) or report to the closest Emergency Room. Call 911 if necessary. 10/26/18 0133 <Electronically signed by Juan Khalil MD> Date Juan Khalil MD Cosigner Signature (If Indicated): Date CC: Momo Carvajal MD LACTIC ACID Collected: 10/26/2018 Status: F Source: CHRISTOPHER 1:15 AM [facility] Order Comment: Yes/No query for Sepsis Lactate Rule Y TYPE CODE TESTS RESULT OUT OF RANGE REFERENCE UNITS LAB L503.6005 0.4-2.0 mmol/L Normal LACTIC ACID 1.0 Performed By: #### L503.6005 #### [facility] [address] [place], [address] Observed: 10/26/2018 Status: F Source: CHRISTOPHER CULTURE, BLOOD (WB) 1:15 AM [facility] RE[facility] BC No growth in 5 days. Performed By: #### M200.1000 #### [facility] [address] [place], [address] CBC W/DIFF, AUTOMATED Collected: 10/26/2018 Status: F Source: CHRISTOPHER 12:45 AM [facility] TYPE CODE TESTS RESULT OUT OF [...] Lymph 0.97 Performed By: #### L100.0100 #### [facility] [address] [facility] [place], [place], [address] BASIC METABOLIC Collected: 10/26/2018 Status: F Source: [place] PROFILE (BMP) 12:45 AM [facility] TYPE CODE TESTS RESULT OUT OF [...] 9 Performed By: #### L500.2500, L501.4010 #### [facility] [address] [place], [address] TROPONIN-I Collected: 10/26/2018 Status: F Source: CHRISTOPHER 12:45 AM [facility] TYPE CODE TESTS RESULT OUT OF RANGE REFERENCE UNITS LAB L501.4010 <0.045 ng/mL Normal < 0.015 TROPONIN-I Result Comment: TROPONIN-I EXPECTED VALUES <0.045 Negative 0.045 - 0.590 Consistent with Cardiac Damage > OR = 0.600 Critical Value Not every elevated troponin is indicative of AZ. These values should be used with clinical judgement in examining the patient's clinical picture for diagnosis. To establish a diagnosis of AZ versus myocardial injury, there must be a demonstrated rise and/or fall in the troponin values, in addition to ischemic symptoms, EKG changes, new regional wall motion abnormality, and/or angiographical evidence. PLEASE NOTE: REFERENCE RANGES EDITED 18 Performed By: #### L500.2500, L501.4010 #### [facility] [address] [place], [address] BNP,B-TYPE NATRIURETIC Collected: 10/26/2018 Status: F Source: CHRISTOPHER PEPTIDE 12:45 AM [facility] TYPE CODE TESTS RESULT OUT OF RANGE REFERENCE UNITS LAB L503.6620 0-100 pg/mL Normal B-TYPE 76.8 THOMAS PEP Performed By: #### L503.6620 #### [facility] [address] [place], [address] CHEST 1 VIEW Observed: 10/25/2018 Status: F Source: CHRISTOPHER (PORTABLE) 11:51 PM [facility] Imaging Services [address] [place] [address] Chest 1 View (Portable) MR#: [id number] Acct: [id number] Name: ABRAN SAENZ Rep #: [id number] : 1940 F 78 From: Santino Mancuso MD PCP: Wei PRYOR,Momo Chi Status: REG ER Study: Chest 1 View (Portable) Date of Exam: 10/25/18 Exam# [id number] Ordering Dr: Juan Khalil MD STUDY: X-RAY [...] CC: Juan Khalil MD; Momo Carvajal MD Mica Miner: Signed Observed: 10/25/2018 Status: F Source: CHRISTOPHER CULTURE, BLOOD (WB) 1:05 AM [facility] REPOS[facility]ORY BC No growth in 5 days. Performed By: #### M200.1000 #### [facility] [address] [place], [address] CBC W/DIFF, AUTOMATED Collected: 10/22/2018 Status: F Source: CHRISTOPHER 2:38 PM [facility] TYPE CODE TESTS RESULT OUT OF [...] Lymph 1.46 Performed By: #### L100.0100 #### [facility] [address] [place] [address]. [place], [place], [address] COMPREHENSIVE METABOLIC Collected: 10/22/2018 Status: F Source: [facility] 2:38 PM [facility] TYPE CODE TESTS RESULT OUT OF [...] 8 Performed By: #### L500.4050, L501.9520 #### [facility] [address] [facility] [place], [place], [address] THYROID STIM HORMONE Collected: 10/22/2018 Status: F Source: CHRISTOPHER (TSH) 2:38 PM [facility] TYPE CODE TESTS RESULT OUT OF RANGE REFERENCE UNITS LAB L501.9520 0.358-3.74 uIU/mL Normal TSH 1.74 Performed By: #### L500.4050, L501.9520 #### [facility] [address] [facility] [place], [place], [address] VITAMIN D,25 HYDROXY Collected: 10/22/2018 Status: F Source: CHRISTOPHER 2:38 PM [facility] TYPE CODE TESTS RESULT OUT OF RANGE REFERENCE UNITS LAB L506.1000 29.95-100.01 ng/mL Normal Vitamin D 33.6 25-OH Result Comment: Vitamin D 25(OH) Status Range Deficiency <20 ng/mL (50nmol/L) Insuffciency 20 - 30 ng/mL (50 - 75 nmol/L) Sufficiency 30 - 100 ng/mL (75 - 250 nmol/L) Toxicity >100 ng/mL (>250 nmol/L) Performed By: #### L506.1000 #### [facility] [address] [place], [address] COMPREHENSIVE METABOLIC Collected: 04/22/2018 Status: F Source: [facility] 3:18 PM [facility] TYPE CODE TESTS RESULT OUT OF [...] 10 Performed By: #### L500.4050, L501.9520 #### [facility] [address] [place], [address] THYROID STIM HORMONE Collected: 04/22/2018 Status: F Source: [place] (TSH) 3:18 PM [facility] TYPE CODE TESTS RESULT OUT OF RANGE REFERENCE UNITS LAB L501.9520 0.358-3.74 uIU/mL Normal TSH 1.38 Performed By: #### L500.4050, L501.9520 #### [facility] [address] [place], [address] CBC W/DIFF, AUTOMATED Collected: 04/22/2018 Status: F Source: [place] 3:18 PM [facility] TYPE CODE TESTS RESULT OUT OF [...] Lymph 1.77 Performed By: #### L100.0100 #### [facility] [address] [place], [address] VITAMIN D,25 HYDROXY Collected: 04/22/2018 Status: F Source: [place] 3:18 PM [facility] TYPE CODE TESTS RESULT OUT OF RANGE REFERENCE UNITS LAB L506.1000 29.95-100.01 ng/mL Normal Vitamin D 36.4 25-OH Result Comment: Vitamin D 25(OH) Status Range Deficiency <20 ng/mL (50nmol/L) Insuffciency 20 - 30 ng/mL (50 - 75 nmol/L) Sufficiency 30 - 100 ng/mL (75 - 250 nmol/L) Toxicity >100 ng/mL (>250 nmol/L) Performed By: #### L506.1000 #### [facility] [address] [place], [address] DISCHARGE SUMMARY Observed: 02/02/2018 Status: F Source: [place] 12:03 PM [facility] Medical Records Department [address] [place] [address] Discharge Summary 02/02/18 1155 MR#: [id number] Acct: [id number] Name: ABRAN SAENZ Rep #: [id number] : 1940 77 From: Han Quan MD PCP: Wei PRYOR,Momo Pfeiffer Status: ADM IN Location: [facility] [id number] Discharge Date and Diagnosis - Problem List [...] F seen in the emergency room at [facility] with a chief complaint of increased shortness of breath her release from the hospital . She was initially hospitalized from [facility] 01/28/2018 and treated for pneumonia with IV [...] applicable Code Visit Inpatient E AND M: 42265 Disch Hosp 02/02/18 1203 <Electronically signed by Han Quan MD> Date Han Quan MD Cosigner Signature (if applicable): Date CC: Han Quan MD; Momo Carvajal MD Signed DISCHARGE INSTRUCTION Observed: 02/02/2018 Status: F Source: [place] 11:55 AM [facility] Medical Records Department [address] [place] [address] Instructions for Home/Discharge Instructions 02/02/18 1154 MR#: [id number] Acct: [id number] Name: ABRAN SAENZ Rep #: [id number] : 1940 77 From: Han Quan MD [...] F Source: [place] PROFILE (BMP) 5:50 AM [facility] HOSPITAL REPOSITORY TYPE CODE TESTS RESULT OUT [...] GAP 6 Performed By: #### L500.2500 #### [facility] [address] [place], [address] CHEST 1 VIEW Observed: 02/01/2018 Status: F Source: [place] (PORTABLE) 12:00 AM [facility] Imaging Services [address] [place] [address] Chest 1 View (Portable) MR#: [id number] Acct: [id number] Name: ABRAN SAENZ Feliciano Rep #: [id number] : 1940 F 77 From: Vincent Hidalgo PCP: Wei PRYOR,[employer] Status: ADM IN Study: Chest 1 View (Portable) Date of Exam: 02/01/18 Exam# [id number] Ordering Dr: Catrachito Holley DO STUDY: X-RAY [...] CC: Catrachito Holley DO; Momo Carvajal MD Mica Miner: Signed 12 LEAD ELECTROCARDIOGRAM Observed: 01/31/2018 Status: F Source: [place] 1:45 PM [facility] Cardiovascular Services [address] [place] [address] 12 Lead EKG 01/29/18 0740 MR#: [id number] Acct: [id number] Name: ABRAN SAENZ Rep #: [id number] : 1940 77 From: Gamaliel Capellan MD Attending Dr: Catrachito Holley DO Status: ADM IN Ordering Dr: Santino Quinones MD Date: 01/29/18 Location: [facility] Sex: F C Admitted: 01/29/18 Test [...] ECG Confirmed by GAMALIEL CAPELLAN MD ([id number]), editor department LEON DURAN ([id number]) on 01/31/2018 1:45:19 PM Referred By: SL Confirmed By:GAMALIEL CAPELLAN MD 01/31/18 1345 Date Gamaliel Capellan MD CC: Santino Quinones MD; Momo Carvajal MD Signed BASIC METABOLIC Collected: 01/31/2018 Status: F Source: [place] PROFILE (BMP) 5:25 AM [facility] TYPE CODE TESTS RESULT OUT OF [...] GAP 5 Performed By: #### L500.2500 #### [facility] [address] [place], [address] CHEST 1 VIEW Observed: 01/31/2018 Status: F Source: [place] (PORTABLE) 12:01 AM [facility] Imaging Services [address] [place] [address] Chest 1 View (Portable) MR#: [id number] Acct: [id number] Name: ABRAN SAENZ Rep #: [id number] : 1940 F 77 From: Bonnie Torres MD PCP: Momo Carvajal MD, Chi Status: ADM IN Study: Chest 1 View (Portable) Date of Exam: 01/31/18 Exam# [id number] Ordering Dr: Catrachito Holley DO STUDY: X-RAY [...] CC: Catrachito Holley DO; Momo Carvajal MD Mica Miner: Signed DISCHARGE SUMMARY Observed: 01/30/2018 Status: F Source: [place] 6:55 PM [facility] Medical Records Department [address] [place] [address] Discharge Summary 01/30/18 1848 MR#: [id number] Acct: [id number] Name: ABRAN SAENZ Rep #: [id number] : 1940 77 From: Catrachito Holley DO PCP: Momo Carvajal MD, Chi Status: DIS IN Y Location: ICU [id number] Discharge Date and Diagnosis - Problem List Patient Problems: Active and Suspected Problems Shortness of breath (Acute) Date of Admission: 01/27/18 Date of Discharge: 01/28/18 - Primary Discharge Diagnosis Active and Suspected Problems #1 acute sepsis secondary to left lower lobe community-acquired ilxsshlil-wppn-ujowecdg bacterial #2 left lower lobe community-acquired verlvqldl-depa-zcadjzib bacterial #3 hypoxia secondary to atelectasis and [...] was seen in the emergency room at [facility] with chief complaint of fever, [...] applicable Code Visit Inpatient E AND M: 41060 Disch Hosp 01/30/18 1855 <Electronically signed by Catrachito Holley DO> Date Catrachito Holley DO Cosigner Signature (if applicable): Date CC: Catrachito Holley DO; Momo Carvajal MD Signed BASIC METABOLIC Collected: 01/30/2018 Status: F Source: [place] PROFILE (BMP) 6:35 AM [facility] TYPE CODE TESTS RESULT OUT OF [...] GAP 8 Performed By: #### L500.2500 #### [facility] [address] [place], [address] CHEST 1 VIEW Observed: 01/30/2018 Status: F Source: [place] (PORTABLE) 12:00 AM [facility] Imaging Services [address] [place] [address] Chest 1 View (Portable) MR#: [id number] Acct: [id number] Name: ABRAN SAENZ Feliciano Rep #: [id number] : 1940 F 77 From: Gianni White MD PCP: Wei PRYOR,Momo Chi Status: ADM IN Study: Chest 1 View (Portable) Date of Exam: 01/30/18 Exam# [id number] Ordering Dr: Catrachito Holley DO STUDY: X-RAY [...] CC: Catrachito Holley DO; Momo Carvajal MD Mica Miner: Signed TROPONIN-I Collected: 01/29/2018 Status: F Source: [place] 10:37 PM [facility] Order Comment: 'TROP' Serial specimen #1, #2, #3, or #4: 4 TYPE CODE TESTS RESULT OUT OF RANGE REFERENCE UNITS LAB L501.4010 <0.06 ng/mL High 0.17 TROPONIN-I Result Comment: TROPONIN-I EXPECTED VALUES <0.05 NEGATIVE 0.06 - 0.59 AT RISK OF [place] > OR = 0.60 SUGGEST [place] Performed By: #### L501.4010 #### [facility] [address] [place], [address] TROPONIN-I Collected: 01/29/2018 Status: F Source: [place] 4:49 PM [facility] Order Comment: 'TROP' Serial specimen #1, #2, #3, or #4: 3 TYPE CODE TESTS RESULT OUT OF RANGE REFERENCE UNITS LAB L501.4010 <0.06 ng/mL High 0.22 TROPONIN-I Result Comment: TROPONIN-I EXPECTED VALUES <0.05 NEGATIVE 0.06 - 0.59 AT RISK OF [place] > OR = 0.60 SUGGEST [place] Performed By: #### L501.4010 #### [facility] [address] [place], [address] ECHOCARDIOGRAM COMPLETE Observed: 01/29/2018 Status: F Source: [place] 4:36 PM [facility] Cardiovascular Services [address] [place] [address] Echo Complete 01/29/18 1418 MR#: [id number] Acct: [id number] Name: ABRAN SAENZ Rep #: [id number] : 1940 77 From: Orlando Baer MD Attending Dr: Catrachito Holley DO Status: ADM IN Ordering Dr: Catrachito Holley DO Date: 01/29/18 Location: [facility] Sex: F C Admitted: 01/29/18 Reason [...] MD Date Dictated: 01/29/18 1418 Date Transcribed: 01/29/181635 Mica Miner: Signed HISTORY AND PHYSICAL Observed: 01/29/2018 Status: F Source: [place] EXAM 4:08 PM [facility] Medical Records Department [address] [place] [address] History and Physical 01/29/18 1558 MR#: [id number] Acct: [id number] Name: ABRAN SAENZ Rep #: [id number] : 1940 77 From: Catrachito Holley DO PCP: Momo Carvajal MD, Chi Status: ADM IN Location: [facility] [id number] Problem List (1) Shortness of breath Status: Acute History of Present Illness Date of Admission: 01/29/18 Chief Complaint: Shortness of breath The patient is a 77 year old F seen in the emergency room at [facility] with a chief complaint of [...] youth. 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 Lives: Spouse/ Significant Other Smoking Status: [...] obesity Code Visit Inpatient E AND M: 17814 Init Hosp L3 01/29/18 1608 <Electronically signed by Catrachito Holley DO> Date Catrachito Holley DO Cosigner Signature: Date (if applicable) CC: Catrachito Holley DO; Momo Carvajal MD Signed EMERGENCY DEPARTMENT Observed: 01/29/2018 Status: F Source: [place] SUMMARY 4:01 PM [facility] Medical Records Department [address] [place] [address] Emergency Department Summary 01/29/18 0910 MR#: [id number] Acct: [id number] Name: ABRAN SAENZ Rep #: [id number] : 1940 77 From: Santino Quinones MD PCP: Wei PRYOR,Momo [facility] Status: ADM IN - ER Visit Summary [...] neutrophils 83, lymphs at 7 9. PT DIRECTOR OF OPTIMIZATION is 160.0. Lactic acid 0.5. Chest x-rays [...] 4. Hypoxia. This note was generated with [employer] dictation software. It may contain incorrect words, [...] your Primary Care Provider. Call [facility] ([phone]) or report to the closest Emergency Room. Call 911 if necessary. 01/29/18 1601 <Electronically signed by Santino Quinones MD> Date Santino Quinones MD Cosigner Signature (If Indicated): Date CC: Momo Carvajal MD Observed: 01/29/2018 Status: F Source: [place] CULTURE, BLOOD (WB) 8:34 AM [facility] NO ANAEROBIC BOTTLE RECEIVED BC No growth in 5 days. Performed By: #### M200.1000 #### [facility] [address] [place], [address] CBC W/DIFF, AUTOMATED Collected: 01/29/2018 Status: F Source: [place] 8:26 AM [facility] TYPE CODE TESTS RESULT OUT OF [...] Lymph 1.00 Performed By: #### L100.0100 #### [facility] [address] [place], [address] BASIC METABOLIC Collected: 01/29/2018 Status: F Source: [place] PROFILE ([facility]) 8:26 AM [facility] Order Comment: 'TROP' Serial specimen #1, [...] 10 Performed By: #### L500.2500, L501.4010 #### [facility] [address] [facility] [place], [place], [address] TROPONIN-I Collected: 01/29/2018 Status: F Source: [place] 8:26 AM [facility] Order Comment: 'TROP' Serial specimen #1, #2, #3, or #4: 1 TYPE CODE TESTS RESULT OUT OF RANGE REFERENCE UNITS LAB L501.4010 <0.06 ng/mL High 0.21 TROPONIN-I Result Comment: TROPONIN-I EXPECTED VALUES <0.05 NEGATIVE 0.06 - 0.59 AT RISK OF [place] > OR = 0.60 SUGGEST [place] Performed By: #### L500.2500, L501.4010 #### [facility] [address] [place], [place], [address] BNP,B-TYPE NATRIURETIC Collected: 01/29/2018 Status: F Source: [place] PEPTIDE 8:26 AM [facility] TYPE CODE TESTS RESULT OUT OF RANGE REFERENCE UNITS LAB L503.6620 0-100 pg/mL High B-TYPE 160.0 THOMAS PEP Performed By: #### L503.6620 #### [facility] [address] [place], [address] LACTIC ACID Collected: 01/29/2018 Status: F Source: [place] 8:26 AM [facility] Order Comment: Yes/No query for Sepsis Lactate Rule Y TYPE CODE TESTS RESULT OUT OF RANGE REFERENCE UNITS LAB L503.6005 0.4-2.0 mmol/L Normal LACTIC ACID 0.5 Performed By: #### L503.6005 #### [facility] [address] [place], [address] Observed: 01/29/2018 Status: F Source: [place] CULTURE, BLOOD (WB) 8:26 AM [facility] NO ANAEROBIC BOTTLE RECEIVED BC No growth in 5 days. Performed By: #### M200.1000 #### [facility] [address] [place], [address] CHEST PA AND LATERAL Observed: 01/29/2018 Status: F Source: [place] 7:35 AM [facility] Imaging Services [address] [place] [address] Chest PA and Lateral MR#: [id number] Acct: [id number] Name: ABRAN SAENZ Rep #: [id number] : 1940 F 77 From: Angel Kyle MD PCP: Wei PRYOR,[employer] Status: REG ER Study: Chest PA and Lateral Date of Exam: 01/29/18 Exam# [id number] Ordering Dr: Santino Quinones MD STUDY: X-RAY [...] Angel Kyle MD at 9:20 EDT Tel [phone], Service support , CC: Santino Quinones MD; Momo Carvajal MD Mica Miner: Signed CONSULTATION Observed: 01/28/2018 Status: F Source: [place] 4:11 PM [facility] Medical Records Department [address] [place] [address] Consultation 01/28/18 1009 MR#: [id number] Acct: [id number] Name: ABRAN SAENZ Rep #: [id number] : 1940 77 From: Liza Rivera DIRECTOR OF OPTIMIZATION-C PCP: Momo Carvajal MD, Chi Status: ADM IN Y Location: ICU [id number] ADDENDUM by Jerry Walton MD on 01/28/18 at 1611 Code Visit Patient seen and examined independently in conjunction with nurse practitioner. All data, including note below, was personally reviewed and I agree with the added comments. In brief, patient presented to [facility] on 01/26/2018 secondary to fever, shortness [...] overall clinical picture. Inpatient E AND M: 90986 Init Hosp L2 01/28/18 1611 <Electronically signed [...] youth. 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 This note was generated with [employer] dictation software. It may contain incorrect words, spelling, and punctuation that were not noted in checking the note before signing. 01/28/18 1118 <Electronically signed by Liza BLACKC> Date Liza HIRSCH Cosigner Signature (if applicable): Date CC: Jerry Walton MD; Momo Carvajal MD Signed DISCHARGE INSTRUCTION Observed: 01/28/2018 Status: F Source: [place] 4:11 PM [facility] Medical Records Department [address] [place] [address] Instructions for Home/Discharge Instructions 01/28/18 1608 MR#: [id number] Acct: [id number] Name: ABRAN SAENZ Rep #: [id number] : 1940 77 From: Catrachito Holley DO [...] When: in 2 weeks-call for appointment 01/28/18 1611 <Electronically signed by Catrachito Holley DO> Date Catrachito Holley DO CC: Jerry Walton MD; Momo Carvajal MD 12 LEAD ELECTROCARDIOGRAM Observed: 01/28/2018 Status: F Source: [place] 3:16 PM [facility] Cardiovascular Services [address] [place] [address] 12 Lead EKG 01/26/18 2134 MR#: [id number] Acct: [id number] Name: ABRAN SAENZ Rep #: [id number] : 1940 77 From: Gamaliel Capellan MD [...] ECG Confirmed by GAMALIEL CAPELLAN MD ([id number]), editor department LEON DURAN (56) on 01/28/2018 3:16:36 PM Referred By: DAYNA Confirmed By:GAMALIEL CAPELLAN MD 01/28/18 1516 Date Gamaliel Capellan MD CC: Anna Quintanilla MD; Momo Carvajal MD Signed CBC W/DIFF, AUTOMATED Collected: 01/28/2018 Status: F Source: [place] 4:25 AM [facility] TYPE CODE TESTS RESULT OUT OF [...] Lymph 1.21 Performed By: #### L100.0100 #### [facility] [address] [place], [place], [address] BNP,B-TYPE NATRIURETIC Collected: 01/28/2018 Status: F Source: [place] PEPTIDE 4:25 AM [facility] TYPE CODE TESTS RESULT OUT OF RANGE REFERENCE UNITS LAB L503.6620 0-100 pg/mL Normal B-TYPE 65.0 THOMAS PEP Performed By: #### L503.6620 #### [facility] [address] [place], [place], [address] CHEST 1 VIEW Observed: 01/28/2018 Status: F Source: [place] (PORTABLE) 12:44 AM [facility] REPOSITORY [facility] [place] [address] Chest 1 View (Portable) MR#: [id number] Acct: [id number] Name: ABRAN SAENZ Rep #: [id number] : 1940 F 77 From: Angel Kyle MD PCP: Momo Carvajal MD, Chi Status: ADM IN Study: Chest 1 View (Portable) Date of Exam: 01/28/18 Exam# [id number] Ordering Dr: Stephen Lay MD STUDY: X-RAY [...] Angel Kyle MD at 8:55 EDT Tel [phone], Service support , CC: Stephen Lay MD; Momo Carvajal MD Mica Miner: Signed Observed: 01/27/2018 Status: F Source: [place] CULTURE, SPUTUM 3:10 PM [facility] Gram Stain Acceptable Specimen? Yes (<25 Epithelial cells per/lpf) Centrifuged Specimen? N/A Gram Stain 2+ White Blood Cells 1+ Epithelial cells 1+ Gram positive cocci Rare Gram positive rods Rare Gram negative rods Resp. Culture Mixed normal respiratory yesika. No Haemophilus, Streptococcus pneumoniae, beta-hemolytic Streptococcus or Staphylococcus aureus isolated. Performed By: #### M100.0800 #### [facility] [place], [address] CBC W/DIFF, AUTOMATED Collected: 01/27/2018 Status: F Source: [place] 4:00 AM [facility] TYPE CODE TESTS RESULT OUT OF [...] Lymph 1.45 Performed By: #### L100.0100 #### [facility] [address] [place], [address] MAGNESIUM Collected: 01/27/2018 Status: F Source: [place] 4:00 AM [facility] TYPE CODE TESTS RESULT OUT OF RANGE REFERENCE UNITS LAB L501.5200 1.6-2.6 mg/dL Normal MG 2.2 Result Comment: Please note revised Magnesium reference range effective 2017. Performed By: #### L501.5200 #### [facility] [address] [place], [address] BASIC METABOLIC Collected: 01/27/2018 Status: F Source: [place] PROFILE (BMP) 4:00 AM [facility] TYPE CODE TESTS RESULT OUT OF [...] GAP 7 Performed By: #### L500.2500 #### [facility] [address] [place], [address] HEMOGLOBIN A1C Collected: 01/27/2018 Status: F Source: [place] 4:00 AM [facility] TYPE CODE TESTS RESULT OUT OF RANGE REFERENCE UNITS LAB L501.9985 4.2-6.3 % Normal HGB A1C 5.6 Performed By: #### L501.9985 #### [facility] [address] [place], [address] HISTORY AND PHYSICAL Observed: 01/27/2018 Status: F Source: [place] EXAM 3:52 AM [facility] Medical Records Department [address] [place], [place] [address] [place] [address] History and Physical 01/27/18 0149 MR#: [id number] Acct: [id number] Name: ABRAN SAENZ Rep #: [id number] : 1940 77 From: Indu Herr PCP: Wei PRYOR,Swyft Media Status: ADM IN Y Location: ICU [place] [address] Problem List (1) HTN (hypertension) Status: Chronic [...] kidney s/p nephrectomy who presents to the [facility] ED on 01/27/18 w/ ongoing fever, chills, [...] youth. 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 Code Visit Inpatient E AND M: 74151 Init Hosp L3 01/27/18 0352 <Electronically signed by Indu Herr > Date Indu Herr Cosigner Signature: Date (if applicable) CC: Indu Herr; Momo Carvajal MD Signed EMERGENCY DEPARTMENT Observed: 01/27/2018 Status: F Source: [place] SUMMARY 2:00 AM [facility] Medical Records Department [address] [place] [address] Emergency Department Summary 01/26/182119 MR#: [id number] Acct: [id number] Name: ABRAN SAENZ Rep #: [id number] : 1940 77 From: Anna Quintanilla MD [...] pneumonia, hypoxia This note was generated with [employer] dictation software. It may contain incorrect words, [...] your Primary Care Provider. Call [facility] ([phone]) or report to the closest Emergency Room. Call 911 if necessary. 01/27/18 0200 <Electronically signed by Anna Quintanilla MD> Date Anna Quintanilla MD Cosigner Signature (If Indicated): Date CC: Momo Carvajal MD CTA CHEST W/WO Observed: 01/26/2018 Status: F Source: [place] CONTRAST 11:19 PM [facility] Imaging Services [address] [place] [address] CTA Chest W/WO Contrast MR#: [id number] Acct: [id number] Name: ABRAN SAENZ Rep #: [id number] : 1940 F 77 From: Bonnie Torres MD PCP: Momo Carvajal MD, Chi Status: REG ER Study: CTA Chest W/WO Contrast Date of Exam: 01/26/18 Exam# [id number] Ordering Dr: Anna Quintanilla MD STUDY: CTA [...] CC: Anna Quintanilla MD; Momo Carvajal MD Mica Miner: Signed Observed: 01/26/2018 Status: F Source: [place] CULTURE, BLOOD (WB) 10:15 PM [facility] BC No growth in 5 days. Performed By: #### M200.1000 #### [facility] [address] [place], [address] CBC W/DIFF, AUTOMATED Collected: 01/26/2018 Status: F Source: [place] 9:45 PM [facility] TYPE CODE TESTS RESULT OUT OF [...] Lymph 1.52 Performed By: #### L100.0100 #### [facility] [address] [facility] [place], [address] BASIC METABOLIC Collected: 01/26/2018 Status: F Source: [place] PROFILE ([facility]) 9:45 PM [facility] Order Comment: 'TROP' Serial specimen #1, [...] 9 Performed By: #### L500.2500, L501.4010 #### [facility] [address] [facility] [place], [place], [address] TROPONIN-I Collected: 01/26/2018 Status: F Source: [place] 9:45 PM [facility] Order Comment: 'TROP' Serial specimen #1, #2, #3, or #4: 1 TYPE CODE TESTS RESULT OUT OF RANGE REFERENCE UNITS LAB L501.4010 <0.06 ng/mL Normal < 0.02 TROPONIN-I Result Comment: TROPONIN-I EXPECTED VALUES <0.05 NEGATIVE 0.06 - 0.59 AT RISK OF [place] > OR = 0.60 SUGGEST [place] Performed By: #### L500.2500, L501.4010 #### [facility] [address] [facility] [place], [place], [address] LACTIC ACID Collected: 01/26/2018 Status: F Source: [place] 9:45 PM [facility] Order Comment: Yes/No query for Sepsis Lactate Rule Y TYPE CODE TESTS RESULT OUT OF RANGE REFERENCE UNITS LAB L503.6005 0.4-2.0 mmol/L Normal LACTIC ACID 1.1 Performed By: #### L503.6005 #### [facility] [address] [place], [place], [address] BNP,B-TYPE NATRIURETIC Collected: 01/26/2018 Status: F Source: [place] PEPTIDE 9:45 PM [facility] TYPE CODE TESTS RESULT OUT OF RANGE REFERENCE UNITS LAB L503.6620 0-100 pg/mL High B-TYPE 118.1 THOMAS PEP Performed By: #### L503.6620 #### [facility] [address] [place], [address] Observed: 01/26/2018 Status: F Source: [place] CULTURE, BLOOD (WB) 9:45 PM [facility] BC No growth in 5 days. Performed By: #### M200.1000 #### [facility] [address] [place], [place], [address] Observed: 01/26/2018 Status: F Source: [place] INFLUENZA A+B (RAPID 9:24 PM [facility] REPOSITORY Has pt arrived? Y FLU A/B Rapid Negative test results should be confirmed by culture. Order Rapid Viral Culture for Influenzae A+B ([id number]) if clinically indicated. Influenza Ag, Direct Presumptive NEGATIVE for Influenza A/B Antigen (See Note) Performed By: #### M101.0101 #### [facility] [address] [place], [place], [address] Observed: 01/26/2018 Status: F Source: [place] RESPIRATORY PANEL 9:21 PM [facility] RE[facility] Has pt arrived? Y RP [...] acid amplification Performed By: #### M100.638 #### [facility] [address] [place], [address] CHEST 1 VIEW Observed: 01/26/2018 Status: F Source: [place]HER (PORTABLE) 9:20 PM [facility] REPOSITORY [facility] Imaging Services [address] [place] [address] Chest 1 View (Portable) MR#: [id number] Acct: [id number] Name: ABRAN SAENZ Rep #: [id number] : 1940 F 77 From: Vincent Hidalgo PCP: Momo Carvajal MD, Chi Status: REG ER Study: Chest 1 View (Portable) Date of Exam: 01/26/18 Exam# [id number] Ordering Dr: Anna Quintanilla MD STUDY: X-RAY [...] CC: Anna Quintanilla MD; Momo Carvajal MD Mica Miner: Signed URINALYSIS, ROUTINE Collected: 01/26/2018 Status: F Source: [place]HER (DIPSTICK) 9:15 PM [facility] Order Comment: Order Date: 01/26/18 Has [...] ESTERASE 500 Performed By: #### L400.2010 #### [facility] [address] [place], [address] Observed: 01/26/2018 Status: F Source: CHRISTOPHER LEGIONELLA ANTIGEN 9:15 PM [facility] Legionella, UR Legionella Antigen result interpretation: Negative Presumptive negative for Legionella pneumophila serogroup 1 antigen in urine, suggesting no recent or current infection. Legionella Ag, Urine Negative (See interpretation below) Performed By: #### M300.4500 #### [facility] [address] [place], [address] STREP Observed: 01/26/2018 Status: F Source: CHRISTOPHER PNEUMONIAE ANTIG(UR,CSF) 9:15 PM [facility] S pneumo Ag URINE INTERPRETATION Negative Urine Presumptive negative for pneumococcal pneumonia, suggesting no current or recent pneumococcal infection. Infection due to S pneumoniae cannot be ruled out since the antigen present in the sample may be below the detection limit of the test. Strep pneumo Test Negative URINE (See interpretation below) Performed By: #### M300.4600 #### [facility] [address] [place] [place], [address] PROGRESS Observed: 01/26/2018 Status: COMPLETED Source: [place] 2:35 PM [facility] REPOSITORY HNO ID: [id number] Author: Loida Seaman Service: (none) Author Type: [...] treatment. CNOV Observed: 01/26/2018 Status: COMPLETED Source: [place] 2:30 PM [facility] REPOSITORY Office Visit (UCWSTR) ABRAN SAENZ ([id number]) 1940 F Date Time Provider Department 01/26/18 2:30 PM LOIDA SEAMAN) UCWSTR During your visit today, we recorded the [...] SEVERITY SOURCE 12/03/2018 Drug No Known Unknown [facility] Allergy/416 Allergies/F0019 Hospital 712877(SNOM 13338(RXNORM) Repository ED CT) 11/07/2012 DRUG MORPHINE Mental Chg [facility] INGREDI/419 [facility] 551051(SNOM Repository ED CT) ENCOUNTERS ENCOUNTERS ADMIT/DISCHARGE ACCOUNT ADMITTING ENCOUNTER LOCATION SOURCE NUMBER CLASS 12/04/2018 [id number] Ambulatory [facility] ing:LAB Repository 12/03/2018/12/03/19 [id number] Emergency [facility] 19 [facility] ing:ED Repository 11/26/2018 [id number] Ambulatory [facility] ing:POLAB3 Repository 11/14/2018 [id number] Ambulatory [facility] ing:OLS[facility] Repository C 11/07/2018 [id number] Ambulatory [facility] ing:OLS.[facility] Repository C 11/03/2018/11/03/20 [id number] Emergency [address] ing:ED Repository 10/26/2018/10/31/20 [id number] Mike Rushing Inpatient [facility] 18 [facility] ing:PCURoom: Repository [id number]: 1 10/26/2018 [id number] Mike Rushing Ambulatory BMSBuilding:B Grahn [facility] Repository 10/26/2018 [id number] Mike Rushing Ambulatory BMSBuilding:Tara hWite MS.[facility] Repository 10/26/2018 [id number] Kristan, [facility] Ambulatory BMSBuilding:Tara White MS.[facility] Repository 10/26/2018 [id number] Kristan, [facility] Ambulatory BMSBuilding:Tara White MS.[facility] Repository 10/26/2018 [id number] Kristan, [facility] Ambulatory BMSBuilding:Tara White MS.[facility] Repository 10/26/2018 [id number] Kristan, [facility] Ambulatory BMSBuilding:Tara White MS.[facility] Repository 10/26/2018/10/31/20 [id number] Ambulatory BMSBuilding:W Christopher 18 [facility] Repository 10/26/2018/10/31/20 [id number] Ambulatory BMSBuilding:W Christopher 18 [facility] Repository 10/22/2018 [id number] Ambulatory [facility] ing:POLAB3 Repository 04/22/2018 [id number] Ambulatory [facility] ing:POLAB3 Repository 01/29/2018/02/03/20 [id number] Tereletsky, Inpatient [facility] 18 [place] [facility] ing:PCURoom: Repository [id number]: 1 01/29/2018 [id number] Tereletsky, Ambulatory BMSBuilding:Tara Winston MS.[facility] Repository 01/29/2018 [id number] Tereletsky, Ambulatory BMSBuilding:Tara Winston [facility] Repository 01/29/2018 [id number] Tereletsky, Ambulatory BMSBuilding:Tara Winston [facility] Repository 01/29/2018 [id number] Tereletsky, Ambulatory BMSBuilding:Tara Winston [facility] Repository 01/29/2018/02/03/20 [id number] Ambulatory BMSBuilding:W Christopher 18 [facility] Repository 01/27/2018/01/29/20 [id number] Indu Herr Inpatient [facility] [address] [facility] ing:ICURoom: Repository [id number]: 1 01/27/2018 [id number] White, Indu Ambulatory BMSBuilding:B Christopher MS.[facility] Repository 01/27/2018 [id number] White, Indu Ambulatory BMSBuilding:W Grahn [facility] Repository 01/27/2018 [id number] White, Ambulatory BMSBuilding:B Christopher MS.[facility] Repository 01/27/2018 [id number] White, Ambulatory BMSBuilding:Tara White MS.[facility] Repository 01/27/2018/01/29/20 [id number] Ambulatory BMSBuilding:W Christopher 18 [facility] Repository 01/26/2018/01/27/20 [id number] Ambulatory [address] Repository PAYERS PAYERS ENCOUNTER GUARANTOR PAYER SUBSCRIBER SOURCE 12/04/2018 SEBAS Swenson Primary ABRAN L Christopher [id number] Insurance:MEDICARE PERRYDOB: [facility] PART A BPolicy Number: [id number] [id number] Repository 70159Izd: (330) Date:2018-12-04 [phone] () 12/04/2018 Secondary ABRAN L Christopher Insurance:HUMANA PERRYDOB: [facility] [id number] Hospital Number: Repository [id number] Date:6855-81-28YA[address] [address]RK: 12/04/2018 Tertiary NOT GIVENUNK Christopher Insurance:SELF PAY [facility] Number: Effective Repository Date:2018-12-04 12/03/2018 SEBAS Swenson Primary ABRAN L Christopher [id number] Insurance:MEDICARE PERRYDOB: [facility] PART A BPolicy Number: [id number], [place] [id number] Repository 517[address]Gze: (330) Date:2018-12-03 [phone] (HP) 12/03/2018 Secondary ABRAN L Grahn Insurance:HUMANA PERRYDOB: [facility] [id number] Hospital Number: Repository [id number] Date:9512-59-28[address] [place] [address]AG: 12/03/2018 Tertiary NOT GIVENUNK Christopher Insurance:SELF PAY [facility] Number: Effective Repository Date:2018-12-03 11/26/2018 SEBAS J Primary ABRAN L Grahn [id number] Insurance:MEDICARE PERRYDOB: Community [place] PART A BPolicy Number: [id number], [place] [id number] Repository 05087Hnu: (561) Date:2018-11-26 [phone] () 11/26/2018 Secondary ABRAN L Grahn Insurance:HUMANA PERRYDOB: [facility] [id number] Hospital Number: Repository [id number] Date:7841-77-32WG[address] [address]UC: 11/26/2018 Tertiary NOT GIVENUNK Christopher Insurance:SELF PAY [facility] Hospital Number: Effective Repository Date:2018-11-26 11/14/2018 SEBAS Swenson Primary Insurance:SELF NOT GIVENUNK Christopher [id number] [facility] [place] Number: [place] Date:2018-11-14 Repository 64756Xuc: () 11/07/2018 SEBAS Swenson Primary Insurance:SELF NOT GIVENUNK Grahn [id number] [facility] [place] Number: [place] Date:2018-11-07 Repository 18980Rmb: (HP) 11/03/2018 SEBAS J Primary ABRAN L Christopher [id number] Insurance:MEDICARE PERRYDOB: Community [place] PART A BPolicy Number: [id number], [place] [id number] Repository 45361Vgo: (000) Date:2018-11-03 [phone] () 11/03/2018 Secondary ABRAN L Christopher Insurance:HUMANA PERRYDOB: [facility] [id number] Hospital Number: Repository [id number] Date:4957-91-11GF [address] [place] [address]DJ: 11/03/2018 Tertiary NOT GIVENUNK Christopher Insurance:SELF PAY [facility] Number: Effective Repository Date:2018-11-03 10/26/2018 SEBAS Swenson Primary ABRAN L Christopher [id number] Insurance:MEDICARE PERRYDOB: Community [place] PART A BPolicy Number: [id number], [place] [id number] Repository 614[address]Rby: (843) Date:2018-10-25 [phone] () 10/26/2018 Secondary ABRAN L Christopher Insurance:HUMANA PERRYDOB: [facility] [id number] Hospital Number: Repository [id number] Date:9697-62-89IW[address] [address]SV: 10/26/2018 Tertiary NOT GIVENUNK Grahn Insurance:SELF PAY [facility] Number: Effective Repository Date:2018-10-25 10/26/2018 Sebas Swenson Primary ABRAN L Christopher [id number] Insurance:MEDICARE PERRYDOB: [place] PART A BPolicy Number: [id number], [place] [id number] Repository 312[address]Rzq: (426) Date:2018-10-25 [phone] () 10/26/2018 Secondary ABRAN L Christopher Insurance:HUMANA PERRYDOB: Community COMMERCIALPolicy [id number] Hospital Number: Repository [id number] Date:8192-25-03CH[address] [address]YR: 10/26/2018 Tertiary NOT GIVENUNK Grahn Insurance:SELF PAY [facility] Number: Effective Repository Date:2018-10-26 10/26/2018 Sebas Swenson Primary ABRAN L Christopher [id number] Insurance:MEDICARE PERRYDOB: [facility] [place] PART A BPolicy Number: [id number], [place] [id number] Repository 59148Eye: (330) Date:2018-10-25 [phone] () 10/26/2018 Secondary ABRAN L Christopher Insurance:HUMANA PERRYDOB: Community COMMERCIALPolicy [id number] Hospital Number: Repository [id number] Date:2210-60-19RX [address] [place] [address]LN: 10/26/2018 Tertiary NOT GIVENUNK Christopher Insurance:SELF PAY [facility] Number: Effective Repository Date:2018-10-26 10/26/2018 SEBAS J Primary ABRAN L Christopher [id number] Insurance:MEDICARE PERRYDOB: [facility] [place] PART A BPolicy Number: [id number], [place] [id number] Repository [address]Edy: 330) Date:2018-10-25 [phone] () 10/26/2018 Secondary ABRAN L Grahn Insurance:HUMANA PERRYDOB: [facility] COMMERCIALPolicy [id number] Hospital Number: Repository [id number] Date:8908-66-81RM [address] [place] [address]BX: 10/26/2018 Tertiary NOT GIVENUNK Christopher Insurance:SELF PAY [facility] Hospital Number: Effective Repository Date:2018-10-26 10/26/2018 SEBAS J Primary ABRAN L Christopher [id number] Insurance:MEDICARE PERRYDOB: Community [place] PART A BPolicy Number: [id number], [place] [id number] Repository 09930Uxo: 330) Date:2018-10-25 [phone] () 10/26/2018 Secondary ABRAN L Grahn Insurance:HUMANA PERRYDOB: [facility] COMMERCIALPolicy [id number] Hospital Number: Repository [id number] Date:7533-50-22EN [address] [address]FG: 10/26/2018 Tertiary NOT GIVENUNK Grahn Insurance:SELF PAY [facility] Number: Effective Repository Date:2018-10-26 10/26/2018 SEBAS J Primary ABRAN L Christopher [id number] Insurance:MEDICARE PERRYDOB: [facility] [place] PART A BPolicy Number: [id number], [place] [id number] Repository 64[address]Geu: (330) Date:2018-10-25 [phone] () 10/26/2018 Secondary ABRAN L Christopher Insurance:HUMANA PERRYDOB: Community COMMERCIALPolicy [id number] Hospital Number: Repository [id number] Date:0762-67-68IG [address] [place] [address]AY: 10/26/2018 Tertiary NOT GIVENUNK Grahn Insurance:SELF PAY [facility] Hospital Number: Effective Repository Date:2018-10-26 10/26/2018 SEBAS J Primary ABRAN L Christopher [id number] Insurance:MEDICARE PERRYDOB: Community [place] PART A BPolicy Number: [id number], [place] [id number] Repository 56618Qea: (058) Date:2018-10-25 [phone] () 10/26/2018 Secondary ABRAN L Grahn Insurance:HUMANA PERRYDOB: [facility] [id number] Hospital Number: Repository [id number] Date:1032-64-18XW[address] [address]IC: 10/26/2018 Tertiary NOT GIVENUNK Christopher Insurance:SELF PAY [facility] Hospital Number: Effective Repository Date:2018-10-26 10/26/2018 SEBAS J Primary ABRAN L Christopher [id number] Insurance:MEDICARE PERRYDOB: Community [place] PART A BPolicy Number: [id number], [place] [id number] Repository 73861Bzd: (330) Date:2018-10-25 [phone] () 10/26/2018 Secondary ABRAN L Christopher Insurance:HUMANA PERRYDOB: Community COMMERCIALPolicy [id number] Hospital Number: Repository [id number] Date:6319-69-73EG [address] [place] [address]VW: 10/26/2018 Tertiary NOT GIVENUNK Christopher Insurance:SELF PAY [facility] Number: Effective Repository Date:2018-10-26 10/26/2018 SEBAS J Primary ABRAN L Grahn [id number] Insurance:MEDICARE PERRYDOB: Community [place] PART A BPolicy Number: [id number], [place] [id number] Repository 34[address]Jwg: (141) Date:2018-10-25 [phone] () 10/26/2018 Secondary ABRAN L Christopher Insurance:HUMANA PERRYDOB: [facility] COMMERCIALPolicy [id number] Hospital Number: Repository [id number] Date:3757-20-20KC[address] [address]CX: 10/26/2018 Tertiary NOT GIVENUNK Christopher Insurance:SELF PAY [facility] Number: Effective Repository Date:2018-10-26 10/22/2018 Sebas J Primary ABRAN L Christopher [id number] Insurance:MEDICARE PERRYDOB: [place] PART A BPolicy Number: [id number], [place] [id number] Repository 116[address]Loz: 330) Date:2018-10-22 [phone] () 10/22/2018 Secondary ABRAN L Christopher Insurance:HUMANA PERRYDOB: Community COMMERCIALPolicy [id number] Hospital Number: Repository [id number] Date:2810-92-53AP [address] [address]AX: 10/22/2018 Tertiary NOT GIVENUNK Christopher Insurance:SELF PAY [facility] Number: Effective Repository Date:2018-10-22 04/22/2018 Sebas J Primary ABRAN L Christopher [id number] Insurance:MEDICARE PERRYDOB: Community [place] PART A BPolicy Number: [id number], [place] [id number] Repository 76401Xly: 330) Date:2018-04-22 [phone] () 04/22/2018 Secondary ABRAN L Christopher Insurance:HUMANA PERRYDOB: Community COMMERCIALPolicy [id number] Hospital Number: Repository [id number] Date:9785-03-46TB [address] [address]UH: 04/22/2018 Tertiary NOT GIVENUNK Christopher Insurance:SELF PAY [facility] Hospital Number: Effective Repository Date:2018-04-22 01/29/2018 Sebas J Primary ABRAN L Christopher [id number] Insurance:MEDICARE PERRYDOB: [place] PART A BPolicy Number: [id number], [place] [id number] Repository 85[address]Dji: 330) Date:2018-01-29 [phone] () 01/29/2018 Secondary ABRAN L Christopher Insurance:HUMANA PERRYDOB: Community COMMERCIALPolicy [id number] Hospital Number: Repository [id number] Date:9332-09-63NO [address] [address]JE: 01/29/2018 Tertiary NOT GIVENUNK Christopher Insurance:SELF PAY [facility] Hospital Number: Effective Repository Date:2018-01-29 01/29/2018 Sebas J Primary ABRAN L Grahn [id number] Insurance:MEDICARE PERRYDOB: [place] PART A BPolicy Number: [id number], [place] [id number] Repository 588[address]Woc: (957) Date:2018-01-29 [phone] () 01/29/2018 Secondary ABRAN L Christopher Insurance:HUMANA PERRYDOB: Community COMMERCIALPolicy [id number] Hospital Number: Repository [id number] Date:5092-86-17AW[address] [address]BR: 01/29/2018 Tertiary NOT GIVENUNK Grahn Insurance:SELF PAY [facility] Hospital Number: Effective Repository Date:2018-01-29 01/29/2018 Sebas Swenson Primary ABRAN L Grahn [id number] Insurance:MEDICARE PERRYDOB: [place] PART A BPolicy Number: [id number], [place] [id number] Repository 20[address]Itp: (330) Date:2018-01-29 [phone] () 01/29/2018 Secondary ABRAN L Christopher Insurance:HUMANA PERRYDOB: Community COMMERCIALPolicy [id number] Hospital Number: Repository [id number] Date:7247-32-34TU [address] [address]EK: 01/29/2018 Tertiary NOT GIVENUNK Christopher Insurance:SELF PAY [facility] Number: Effective Repository Date:2018-01-29 01/29/2018 Sebas Swenson Primary ABRAN L Christopher [id number] Insurance:MEDICARE PERRYDOB: [place] PART A BPolicy Number: [id number], [place] [id number] Repository 22[address]Anp: (330) Date:2018-01-29 [phone] () 01/29/2018 Secondary ABRAN L Christopher Insurance:HUMANA PERRYDOB: Community COMMERCIALPolicy [id number] Hospital Number: Repository [id number] Date:3562-25-26BA[address] [address]IE: 01/29/2018 Tertiary NOT GIVENUNK Grahn Insurance:SELF PAY [facility] Hospital Number: Effective Repository Date:2018-01-29 01/29/2018 Sebas Swenson Primary ABRAN L Christopher [id number] Insurance:MEDICARE PERRYDOB: [place] PART A BPolicy Number: [id number], [place] [id number] Repository 419[address]Exz: (330) Date:2018-01-29 [phone] () 01/29/2018 Secondary ABRAN L Grahn Insurance:HUMANA PERRYDOB: Community COMMERCIALPolicy [id number] Hospital Number: Repository [id number] Date:5711-21-90ZA[address] [address]JB: 01/29/2018 Tertiary NOT GIVENUNK Grahn Insurance:SELF PAY [facility] Hospital Number: Effective Repository Date:2018-01-29 01/29/2018 Sebas Swenson Primary ABRAN L Christopher [id number] Insurance:MEDICARE PERRYDOB: [facility] [place] PART A BPolicy Number: [id number], [place] [id number] Repository 489[address]Fgh: 330) Date:2018-01-29 [phone] () 01/29/2018 Secondary ABRAN L Christopher Insurance:HUMANA PERRYDOB: Community COMMERCIALPolicy [id number] Hospital Number: Repository [id number] Date:9998-47-03GD[address] [address]EF: 01/29/2018 Tertiary NOT GIVENUNK Christopher Insurance:SELF PAY [facility] Number: Effective Repository Date:2018-01-29 01/27/2018 Sebas Swenson Primary ABRAN L Christopher [id number] Insurance:MEDICARE PERRYDOB: [facility] [place] PART A BPolicy Number: [id number], [place] [id number] Repository 98744Agm: 330) Date:2018-01-26 [phone] () 01/27/2018 Secondary ABRAN L Grahn Insurance:HUMANA PERRYDOB: Community COMMERCIALPolicy [id number] Hospital Number: Repository [id number] Date:9547-43-97RM[address] [address]TX: 01/27/2018 Tertiary NOT GIVENUNK Christopher Insurance:SELF PAY [facility] Hospital Number: Effective Repository Date:2018-01-26 01/27/2018 Sebas Swenson Primary ABRAN L Grahn [id number] Insurance:MEDICARE PERRYDOB: [place] PART A BPolicy Number: [id number], [place] [id number] Repository 212[address]Qsk: 330) Date:2018-01-26 [phone] () 01/27/2018 Secondary ABRAN L Christopher Insurance:HUMANA PERRYDOB: Community COMMERCIALPolicy [id number] Hospital Number: Repository [id number] Date:1095-87-98TM [address] [place] [address]UH: 01/27/2018 Tertiary NOT GIVENUNK Grahn Insurance:SELF PAY [facility] Hospital Number: Effective Repository Date:2018-01-27 01/27/2018 Sebas J Primary ABRAN L Christopher [id number] Insurance:MEDICARE PERRYDOB: [place] PART A BPolicy Number: [id number], [place] [id number] Repository 322[address]Pri: 330) Date:2018-01-26 [phone] () 01/27/2018 Secondary ABRAN L Christopher Insurance:HUMANA PERRYDOB: [facility] [id number] Hospital Number: Repository [id number] Date:7988-58-54TV[address] [address]ID: 01/27/2018 Tertiary NOT GIVENUNK Grahn Insurance:SELF PAY [facility] Hospital Number: Effective Repository Date:2018-01-27 01/27/2018 Sebas J Primary ABRAN L Christopher [id number] Insurance:MEDICARE PERRYDOB: [place] PART A BPolicy Number: [id number], [place] [id number] Repository 89327Utl: 330) Date:2018-01-26 [phone] () 01/27/2018 Secondary ABRAN L Grahn Insurance:HUMANA PERRYDOB: [facility] COMMERCIALPolicy [id number] Hospital Number: Repository [id number] Date:9196-17-03RD [address] [address]PW: 01/27/2018 Tertiary NOT GIVENUNK Christopher Insurance:SELF PAY [facility] Number: Effective Repository Date:2018-01-27 01/27/2018 Sebas Swenson Primary ABRAN L Christopher [id number] Insurance:MEDICARE PERRYDOB: [place] PART A BPolicy Number: [id number], [place] [id number] Repository 830[address]Loo: 330) Date:2018-01-26 [phone] () 01/27/2018 Secondary ABRAN L Grahn Insurance:HUMANA PERRYDOB: Community COMMERCIALPolicy [id number] Hospital Number: Repository [id number] Date:2698-25-32YY [address] [address]DX: 01/27/2018 Tertiary NOT GIVENUNK Grahn Insurance:SELF PAY [facility] Hospital Number: Effective Repository Date:2018-01-27 01/27/2018 Sebas Swenson Primary ABRAN L Christopher [id number] Insurance:MEDICARE PERRYDOB: [place] PART A BPolicy Number: [id number], [place] [id number] Repository 92018Fwa: (985) Date:2018-01-26 [phone] () 01/27/2018 Secondary ABRAN L Christopher Insurance:HUMANA PERRYDOB: [facility] [id number] Hospital Number: Repository [id number] Date:4469-19-93UO [address] [place] [address]MU: 01/27/2018 Tertiary NOT GIVENUNK Christopher Insurance:SELF PAY [facility] Hospital Number: Effective Repository Date:2018-01-27
== END ==
PROVIDERS: Family Provider Family Medicine Geriatric Medicine; PCP Family Medicine Geriatric Medicine; Visit Provider Family Medicine Geriatric Medicine
DX: N17.9 Acute kidney failure, unspecified (principal)
CPT/HCPCS: 36415; 80048

== ENCOUNTER 2018-12-03 12:18 | Emergency (ER) | payer MEDICARE, OTHER, SELFPAY ==
[2018-11-03 07:14] VITALS: BMI 41.8
[2018-12-03 12:20] VITALS: BP 118/65; PULSE 70; RESP 22; TEMP 36.9; O2SAT 97; BMI 42.1
--- NOTE | 2018-12-03 12:44 | EKG12_ITS ---
Test Reason : SOB Blood Pressure : / mmHG Vent. Rate : 070 BPM Atrial Rate : 070 BPM P-R Int : 214 ms QRS Dur : 062 ms QT Int : 336 ms P-R-T Axes : 070 -08 044 degrees QTc Int : 362 ms Sinus rhythm with 1st degree A-V block Possible Left atrial enlargement Low voltage QRS Septal infarct , age undetermined Abnormal ECG Confirmed by JASON PRYOR, BREANA ([id number]), photograph editor LEON DURAN ([id number]) on 12/09/2018 2:39:48 PM Referred By: MARY Confirmed By:BREANA GOMEZ MD
--- NOTE | 2018-12-03 12:45 | VDLE_ITS ---
Reason For Study: RLE swelling RIGHT GSV is normal. CFV is compressible, spontaneous, phasic, competent and demonstrates normal augmentation. FV is compressible, spontaneous, phasic, competent and demonstrates normal augmentation. POP V is compressible, spontaneous, phasic, competent and demonstrates normal augmentation. T/P Trunk is compressible. PTV is compressible. RT PerV is compressible. Procedure Exam performed portable in ED. The study was technically difficult. A preliminary report was called and/or faxed to Dr. Hager & ED. Interpretation Summary There is no evidence of right lower extremity deep vein thrombosis. Right greater saphenous vein appears patent and compressible segmentally. Ordering Physician: Mark Hager Referring Physician: Momo Carvajal Chi Performed By: Irasema Weber, NIDHI, RVT
--- NOTE | 2018-12-03 12:47 | ED.VISSUMM ---
- ER Visit Summary Date of Service: 12/03/18 Chief Complaint: Shortness of breath History of Present Illness: The patient is a 78 F history of + prior CHF, questionable COPD and anemia. 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 Patient states the last 2 days she has been more short of breath. She is has been on home O2 since she uses occasionally. A week or so ago her primary care physician started her on a beta-malina. She states that when the problem started. States she has swelling in her right leg. No calf pain. No prior DVT or PE. No recent travel or surgery. She has had recent hospitalization and admission. Recent long-term admission. She denies any chest pain or any hemoptysis. States her pulse ox at home is in the 80s without her oxygen. She also states for the last 3 days she has had minimal to no urination. No prior history. She denies any hematuria or dysuria. Physical Examination: Well-appearing older female. No distress. With oxygen on her pulse ox is 97%. She is afebrile. She does not look septic or toxic. H EENT exam unremarkable. Neck nontender. Lungs clear to auscultation bilaterally. Diminished in both bases. Heart regular rate and rhythm rate about 70. Abdomen is obese but soft. Nontender nondistended. Normal bowel sounds no peritoneal signs. I do not appreciate a distended bladder. Extremities moves all 4. 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 Right leg is minimally swollen compared to the left the left appears more atrophy. There is no significant peripheral edema or calf tenderness or cords. Neurologically she is awake and alert answering questions and following commands. Test Results: Chest x-ray showed chronic changes no acute process read by myself. Ultrasound of her right leg showed no DVT per the auto glass technician. EKG sinus rhythm rate of 70 with a first-degree AV block otherwise unremarkable. No signs of MA or ischemia. CBC shows a normal white count of 6. Globin 9.9 she is chronically anemic her hemoglobin typically runs around 10. Electrolytes shows a sodium 129. Potassium 5.3. BUN of 24 creatinine 0.39. Gap is 7. UA is normal. Troponin normal. BNP 120. Bladder scan was only 26 and when the nurse did a straight cath on the patient it was only 100 cc. Emergency Department Course and Treatment: The patient will undergo a workup for her dyspnea. Also a noninvasive study of her right lower extremity. A bladder scan for urinary retention. Repeat exam patient is doing well at 1455. Her oxygen is 97% on 2 L. Patient is doing well. I went over all test results with her and her . They are comfortable with her being discharged home. Treatment Plan: Patient wants to stop her carvedilol medication. She will monitor her blood pressure and heart rate and follow-up with Dr. Braden about this. Disposition: Discharge Impression: Acute on chronic dyspnea of uncertain etiology Decreased urination Mild dehydration. Chronic anemia. Mild hyponatremia and hyperkalemia. This note was generated with [employer] dictation software. It may contain incorrect words, spelling, and punctuation that were not noted in review of the chart prior to signing ED Disposition - Plan for ED Patient: Chief Complaint: Shortness of Breath Referrals: Momo Carvajal Chi, MD [Primary Care Provider] -
--- NOTE | 2018-12-03 12:51 | ED.DCSUM_ITS ---
- ER Visit Summary Date of Service: 12/03/18 Chief Complaint: Shortness of breath History of Present Illness: The patient is a 78 F history of + prior CHF, questionable COPD and anemia. 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 Patient states the last 2 days she has been more short of breath. She is has been on home O2 since she uses occasionally. A week or so ago her primary care physician started her on a beta-malina. She states that when the problem started. States she has swelling in her right leg. No calf pain. No prior DVT or PE. No recent travel or surgery. She has had recent hospitalization and admission. Recent prison admission. She denies any chest pain or any hemoptysis. States her pulse ox at home is in the 80s without her oxygen. She also states for the last 3 days she has had minimal to no urination. No prior history. She denies any hematuria or dysuria. Physical Examination: Well-appearing older female. No distress. With oxygen on her pulse ox is 97%. She is afebrile. She does not look septic or toxic. H EENT exam unremarkable. Neck nontender. Lungs clear to auscultation bilaterally. Diminished in both bases. Heart regular rate and rhythm rate about 70. Abdomen is obese but soft. Nontender nondistended. Normal bowel sounds no peritoneal signs. I do not appreciate a distended bladder. Extremities moves all 4. 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 Right leg is minimally swollen compared to the left the left appears more atrophy. There is no significant peripheral edema or calf tenderness or cords. Neurologically she is awake and alert answering questions and following commands. Test Results: Chest x-ray showed chronic changes no acute process read by myself. Ultrasound of her right leg showed no DVT per the accounts payable technician. EKG sinus rhythm rate of 70 with a first-degree AV block otherwise unremarkable. No signs of [place] or ischemia. CBC shows a normal white count of 6. Globin 9.9 she is chronically anemic her hemoglobin typically runs around 10. Electrolytes shows a sodium 129. Potassium 5.3. BUN of 24 creatinine 0.39. Gap is 7. UA is normal. Troponin normal. BNP 120. Bladder scan was only 26 and when the nurse did a straight cath on the patient it was only 100 cc. Emergency Department Course and Treatment: The patient will undergo a workup for her dyspnea. Also a noninvasive study of her right lower extremity. A bladder scan for urinary retention. Repeat exam patient is doing well at 1455. Her oxygen is 97% on 2 L. Patient is doing well. I went over all test results with her and her . They are comfortable with her being discharged home. Treatment Plan: Patient wants to stop her carvedilol medication. She will monitor her blood pressure and heart rate and follow-up with Dr. Braden about this. Disposition: Discharge Impression: Acute on chronic dyspnea of uncertain etiology Decreased urination Mild dehydration. Chronic anemia. Mild hyponatremia and hyperkalemia. This note was generated with [employer] dictation software. It may contain incorrect words, spelling, and punctuation that were not noted in review of the chart prior to signing ED Disposition - Plan for ED Patient: Chief Complaint: Shortness of Breath Referrals: Momo Carvajal Chi, MD [Primary Care Provider] -
[2018-12-03 13:22] VITALS: O2SAT 96
[2018-12-03 13:48] LABS: Absolute Lymphocyte Count 1.15 X10^3/ul (0.83-4.51); Absolute Neutrophil Count 4.3 X10^3/uL (2.0-7.7); Basophil# 0.02 X10^3/uL; Basophil% 0.3 % (0-1); Eosinophil# 0.08 X10^3/uL; Eosinophils% 1.3 % (0-5); Hematocrit 30.9 % (37-47); Hemoglobin 9.9 g/dl (12.0-15.0); Lymphocyte # 1.15 X10^3/ul (4.0); Lymphocyte % 18.3 % (19-41); Mean Corpuscular Hgb 29.6 pg (27.0-32.0); Mean Corpuscular Volume 92.5 fL (81-99); Mean Platelet Vol. 9.3 fl (6.2-12.0); Monocyte% 11.1 % (0-10); Neutrophil # 4.33 X10^3/uL (2.7-7.7); Neutrophil % 68.7 % (47-70); POSITIVE COUNT NO; POSITIVE DIFFERENTIAL NO; POSITIVE MORPHOLOGY NO; Platelet Count 328 K/mm3 (150-450); RBC Distribution Width CV 14.7 % (11.6-14.6); RBC Distribution Width SD 50.1 fl (35.1-43.9); Red Blood Count 3.34 M/mm3 (4.2-5.4); White Blood Count 6.3 K/mm3 (4.4-11.0)
[2018-12-03 14:03] LABS: Anion Gap 7 (5-15); BUN 24 mg/dL (7-18); BUN/Creat Ratio 62.2 RATIO (10-20); Calcium,Total 8.2 mg/dL (8.5-10.1); Chloride 96 mmol/L (98-107); Creatinine, Serum 0.39 mg/dL (0.55-1.02); EST Glomerular Filtration Rate 172 mL/min (>60); Est Glom Filt Rate - Afr Amer 208 mL/min (>60); Estimated Creatinine Clearance 69.13 ml/min; Glucose 95 mg/dL (74-106); Potassium 5.3 mmol/L (3.5-5.1); Sodium Level 129 mmol/L (136-145)
[2018-12-03 14:13] LABS: Bacteria 0 SEEN /hpf (None Seen); Mucous, Urine 0 SEEN /hpf (<or=2+); Red Blood Cells-Urine 0 SEEN /hpf (0-5); Squamous Epithelial Cells - UA 0 SEEN /hpf (5-10); White Blood Cells 0 SEEN /hpf (0-5)
[2018-12-03 14:14] LABS: BNP,B-Type NATRIURETIC PEPTIDE 120.4 pg/mL (0-100)
--- NOTE | 2018-12-03 14:15 | RAD_ITS ---
STUDY: X-RAY CHEST REASON FOR EXAM: Female, 78 years old. Shortness of breath. Fluid overload. Urinary retention. TECHNIQUE: AP and lateral views of the chest. COMPARISON: Comparison is made with prior examination dated November 03, 2018. FINDINGS: EKG electrodes are seen. There is evidence of vascular congestion and CHF. Small bilateral pleural effusions. There is moderate cardiac enlargement. Normal mediastinum and fouzia. Normal visualized pulmonary arteries. There is atherosclerotic tortuosity of the aortic arch and descending thoracic aorta. There is demineralization of the osseous structures. There is degenerative osteoarthritis of the bilateral shoulders. There is no demonstrated abnormality of the visualized soft tissue structures of the upper abdomen. RAD/Chest PA and Lateral IMPRESSION: Cardiomegaly and CHF. Small bilateral pleural effusions. Electronically Signed: Angel Kyle MD at 15:00 EST , Service support ,
[2018-12-03 14:19] LABS: Color, Urine Yellow (Yellow); Glucose, Dipstick Normal (Normal); Ketone-Dipstick Negative (Negative); Leukocyte Esterase-Dipstick Negative /ul (Negative); Nitrite-Dipstick Negative (Negative); Occult Blood-Urine Negative /ul (Negative); Protein-Dipstick Negative (Negative); Urine Bilirubin Dipstick Negative (Negative); Urine Clarity Clear (Clear); Urine Urobilinogen Normal (Normal)
[2018-12-03 14:40] VITALS: BP 117/58; PULSE 88; RESP 24
--- NOTE | 2018-12-03 15:04 | ED.DEP ---
ED Disposition - Plan for ED Patient: Disposition: Home or Assisted Living Chief Complaint: Shortness of Breath Instructions: ED Dyspnea Shortness of Breath Referrals: Momo Carvajal Chi, MD [Primary Care Provider] - As soon as possible Additional Instructions: You may hold her carvedilol however you need to monitor your blood pressure and heart rate and follow-up with Dr. Carvajal about this. Otherwise your exam and labs are basically unremarkable.
[2018-12-03 16:10] VITALS: PULSE 85; RESP 24; O2SAT 96
--- OUTSIDE RECORDS SUMMARY | 2019-02-04 14:44 | XMS RPT_ITS ---
:1940 Author Organization [facility] Support Name Relationship Address Phone SAÚL GOODE Unavailable [address] + [place] [address] NÉSTOR SAENZTER Unavailable [address] + [place] [address] R Unavailable Unavailable Unavailable SAÚL GOODE Unavailable [address] + [place] [address] NÉSTOR SAENZTER Unavailable [address] + [place] [address] R Unavailable Unavailable Unavailable SAÚL GOODE Unavailable [address] + [place] [address] NÉSTOR SAENZTER Unavailable [address] + [place] [address] R Unavailable Unavailable Unavailable Saúl Goode Unavailable [address] + [place] [address] Néstor Saenzter Unavailable [address] + [place] [address] R Unavailable Unavailable Unavailable Saúl Goode Unavailable [address] + [place] [address] Néstor Saenzter Unavailable [address] + [place] [address] R Unavailable Unavailable Unavailable Saúl Goode Unavailable [address] + [place] [address] Néstor Saenzter Unavailable [address] + [place] [address] R Unavailable Unavailable Unavailable SAÚL GOODE Unavailable [address] + [place] [address] NÉSTOR SAENZTER Unavailable [address] + [place] [address] R Unavailable Unavailable Unavailable SAÚL GOODE Unavailable [address] + [place] [address] EUGENE, SEBAS Unavailable [address] + [place] [address] R Unavailable Unavailable Unavailable SAÚL GOODE Unavailable [address] + [place] [address] EUGENE, SEBAS Unavailable [address] + [place] [address] R Unavailable Unavailable Unavailable SAÚL GOODE Unavailable [address] + [place] [address] EUGENE, SEBAS Unavailable [address] + [place] [address] R Unavailable Unavailable Unavailable SAÚL GOODE Unavailable [address] + [place] [address] EUGENE, SEBAS Unavailable [address] + [place] [address] R Unavailable Unavailable Unavailable SAÚL GOODE Unavailable [address] + [place] [address] EUGENE, SEBAS Unavailable [address] + [place] [address] R Unavailable Unavailable Unavailable Saúl Goode Unavailable [address] + [place] [address] Eugene, Sebas Unavailable [address] + [place] [address] R Unavailable Unavailable Unavailable Saúl Goode Unavailable [address] + [place] [address] Eugene, Sebas Unavailable [address] + [place] [address] R Unavailable Unavailable Unavailable Saúl Goode Unavailable [address] + [place] [address] Eugene, Sebas Unavailable [address] + [place] [address] R Unavailable Unavailable Unavailable Saúl Goode Unavailable [address] + [place] [address] Eugene, Sebas Unavailable [address] + [place] [address] R Unavailable Unavailable Unavailable JAGGER, KERILYNN Unavailable [address] + [place] [address] EUGENE, SEBAS Unavailable [address] + [place] [address] R Unavailable Unavailable Unavailable JAGGER, KERILYNN Unavailable [address] + [place] [address] EUGENE, SEBAS Unavailable [address] + [place] [address] R Unavailable Unavailable Unavailable JAGGER, KERILYNN Unavailable [address] + [place] [address] EUGENE, SEBAS Unavailable [address] + [place] [address] R Unavailable Unavailable Unavailable JAGGER KERILYNN Unavailable [address] + [place] [address] EUGENE, SEBAS Unavailable [address] + [place] [address] R Unavailable Unavailable Unavailable JAGGER, KERILYNN Unavailable [address] + [place] [address] EUGENE, SEBAS Unavailable [address] + [place] [address] R Unavailable Unavailable Unavailable JAGGER, KERILYNN Unavailable [address] + [place] [address] EUGENE, SEBAS Unavailable [address] + [place] [address] R Unavailable Unavailable Unavailable JAGGER, KERILYNN Unavailable [address] + [place] [address] EUGENE, SEBAS Unavailable [address] + [place] [address] R Unavailable Unavailable Unavailable JAGGER, KERILYNN Unavailable [address] + [place] [address] EUGENE, SEBAS Unavailable [address] + [place] [address] R Unavailable Unavailable Unavailable JAGGER, KERILYNN Unavailable [address] + [place] [address] EUGENE, SEBAS Unavailable [address] + [place] [address] R Unavailable Unavailable Unavailable SAÚL GOODE Unavailable [address] + [place] [address] EUGENE, SEBAS Unavailable [address] + [place] [address] R Unavailable Unavailable Unavailable SAÚL GOODE Unavailable [address] + [place] [address] EUGENE, SEBAS Unavailable [address] + [place] [address] R Unavailable Unavailable Unavailable SAÚL GOODE Unavailable [address] + [place] [address] EUGENE, SEBAS Unavailable [address] + [place] [address] R Unavailable Unavailable Unavailable SAÚL GOODE Unavailable [address] + [place] [address] EUGENE, SEBAS Unavailable [address] + [place] [address] R Unavailable Unavailable Unavailable SAÚL GOODE Unavailable [address] + [place] [address] EUGENE, SEBAS Unavailable [address] + [place] [address] R Unavailable Unavailable Unavailable Care Team Providers [...] Capellan Attending Unavailable Kristan, Mike Referring Unavailable TimiGamaliel Attending Unavailable Donn, Neal Referring Unavailable Wei, Momo Chi Attending Unavailable Wei, Momo Chi Primary Care Unavailable Wei, Momo Chi Primary Care Unavailable White, Indu Admitting Unavailable Tereletsky, Catrachito Attending Unavailable Anton, Jerry Consulting Unavailable White, Indu Admitting Unavailable White, Indu Attending Unavailable Wei, Momo Chi Primary Care Unavailable White, Indu Consulting Unavailable White, Indu Admitting Unavailable Liza Rivera EMTS-C Attending Unavailable Wei, Momo Chi Primary Care Unavailable Anton, Jerry Consulting Unavailable Tereletsky, Catrachito Consulting Unavailable White, Indu Admitting Unavailable Anton, Jerry Attending Unavailable Wei, Momo Chi Primary Care Unavailable Anton, Jeryr Consulting Unavailable Tereletsky, Catrachito Consulting Unavailable Wei, [...] Chi Primary Care Unavailable Wei, Momo Chi Attending Unavailable Wei, Momo Chi Primary Care Unavailable PROBLEMS PROBLEMS DATE TYPE CONDITION / CODE ATTENDING STATUS SOURCE 12/09/2018 Unknown I50.33 - Acute on Wei, Momo Chi Active [place] chronic diastolic Community (congestive) heart Hospital failure / Repository I50.33(ICD-10) 10/31/2018 Unknown Z90.5 - Acquired Donn, Neal Active [place] absence of kidney / Community Z90.5(ICD-10) Hospital Repository 11/20/2018 Unknown R94.31 - Abnormal Timi, Gamaliel Active [place] electrocardiogram Community [ECG] [EKG] / Hospital R94.31(ICD-10) Repository PROCEDURES PROCEDURES No Procedure Records FoundRESULTS RESULTS BASIC METABOLIC Collected: 12/09/2018 Status: F Source: [place] PROFILE (BMP) 10:45 AM [facility] REPOSITORY TYPE CODE TESTS RESULT OUT OF RANGE REFERENCE UNITS LAB L501.0100 74-106 mg/dL Normal GLU 89 Result Comment: Please note revised GLUCOSE reference range effective 2017. LAB L501.1000 7-18 mg/dL High BUN 22 LAB L501.1100 0.55-1.02 mg/dL Low CREAT,SERUM 0.47 Result Comment: The validity of the calculated GFR AND GFRAA in patients over 70 years has not been determined. Clinical correlation is essential. LAB L501.1110 >60 mL/min Normal EST GFR 138 Result Comment: Non- GFR Calc LAB L501.1115 >60 mL/min Normal EST GFR - AA 167 Result Comment: GFR Calc LAB L501.1300 10-20 RATIO High BUN/CRE 47.2 LAB L501.2200 8.5-10.1 mg/dL CA Normal 9.0 LAB L501.5300 136-145 mmol/L NA Normal 139 LAB L501.5600 3.5-5.1 mmol/L K Normal 4.7 LAB L501.5900 98-107 mmol/L Low CL 93 LAB L501.6100 21.0-32.0 mmol/L High CO2 40.0 LAB L501.6200 5-15 Normal GAP 6 Performed By: #### L500.2500 #### [facility] [address] [place], [address] VENOUS DUPLEX LOWER Observed: 12/03/2018 Status: F Source: [place] EXTREMITY 7:13 PM [facility] REPOSITORY [facility] Cardiovascular Services [address] [address] Venous Duplex US, Unilateral 12/03/18 1349 MR#: [id number] Acct: [id number] Name: ABRAN SAENZ Rep #: [id number] : 1940 78 From: Prosper Miranda MD [...] Chi Performed By: Irasema Weber, NIDHI, RVT 12/03/18 191 Date Prosper Miranda MD CC: Mark Hager MD; Momo Carvajal MD Date Dictated: 12/03/18 1349 Date Transcribed: 12/03/181912 Print Traffic Manager: Signed DISCHARGE INSTRUCTION Observed: 12/03/2018 Status: F Source: [place] 3:27 PM [facility] REPOSITORY [facility] Medical Records Department [address] [place] [address] Discharge Instruction 12/03/18 1504 MR#: [id number] Acct: [id number] Name: ABRAN SAENZ Rep #: [id number] : 1940 78 From: Mark Hager MD PCP: Mmoo Carvajal MD, Chi Status: REG ER ED [...] your Primary Care Provider. Call [facility] ([phone]) or report to the closest Emergency Room. Call 911 if necessary. 12/03/18 1527 <Electronically signed by aMrk Hager MD> Date Mark Hager MD Cosigner Signature (If Indicated): Date CC: Momo Carvajal MD EMERGENCY DEPARTMENT Observed: 12/03/2018 Status: F Source: [place] SUMMARY 3:27 PM [facility] REPOSITORY [facility] Medical Records Department [address] [place] [address] Emergency Department Summary 12/03/18 1247 MR#: [id number] Acct: [id number] Name: ABRAN SAENZ Rep #: [id number] : 1940 78 From: Mark Hager MD PCP: Wei PRYOR,Momo Pfeiffer Status: REG [...] has had recent hospitalization and admission. Recent penitentiary admission. She denies any chest pain or [...] right leg showed no DVT per the r and d lab technician. EKG sinus rhythm rate of 70 with a first-degree AV block otherwise unremarkable. No signs of MA or ischemia. CBC shows a normal white [...] and hyperkalemia. This note was generated with [employer] software. It may contain incorrect words, spelling, [...] your Primary Care Provider. Call [facility] ([phone]) or report to the closest Emergency Room. Call 911 if necessary. 12/03/18 1726 <Electronically signed by Mark Hager MD> Date Mark Hager MD Cosigner Signature (If Indicated): Date CC: Momo Carvajal MD URINALYSIS, COMPLETE Collected: 12/03/2018 Status: F Source: [place] 2:05 PM [facility] REPOSITORY Order Comment: How was Urine Obtained? BACK WEDGER TO SPECIFY TYPE CODE TESTS RESULT OUT [...] URINE SEEN Performed By: #### L400.0001 #### [facility] [address] [place], [place], [address] CBC W/DIFF, AUTOMATED Collected: 12/03/2018 Status: F Source: [place] 1:40 PM [facility] REPOSITORY TYPE [...] Lymph 1.15 Performed By: #### L100.0100 #### [facility] [address] [place], [address] BASIC METABOLIC Collected: 12/03/2018 Status: F Source: [place] PROFILE ([facility]) 1:40 PM [facility] REPOSITORY TYPE [...] 7 Performed By: #### L500.2500, L501.4010 #### [facility] [address] [place], [address] TROPONIN-I Collected: 12/03/2018 Status: F Source: [place] 1:40 PM [facility] REPOSITORY TYPE CODE TESTS RESULT OUT OF RANGE REFERENCE UNITS LAB L501.4010 <0.045 ng/mL Normal < 0.015 TROPONIN-I Result Comment: TROPONIN-I EXPECTED VALUES <0.045 Negative 0.045 - 0.590 Consistent with Cardiac Damage > OR = 0.600 Critical Value Not every elevated troponin is indicative of MA. These values should be used with clinical judgement in examining the patient's clinical picture for diagnosis. To establish a diagnosis of MA versus myocardial injury, there must be a demonstrated rise and/or fall in the troponin values, in addition to ischemic symptoms, EKG changes, new regional wall motion abnormality, and/or angiographical evidence. PLEASE NOTE: REFERENCE RANGES EDITED 18 Performed By: #### L500.2500, L501.4010 #### [facility] [address] [facility] [place], [address] BNP,B-TYPE NATRIURETIC Collected: 12/03/2018 Status: F Source: [place] PEPTIDE 1:40 PM [facility] REPOSITORY TYPE CODE TESTS RESULT OUT OF RANGE REFERENCE UNITS LAB L503.6620 0-100 pg/mL High B-TYPE 120.4 [place] PEP Performed By: #### L503.6620 #### [facility] [address] [facility] [place], [address] CHEST PA AND LATERAL Observed: 12/03/2018 Status: F Source: [place] 12:46 PM [facility] REPOSITORY [facility] Imaging Services [address] [place] [address] Chest PA and Lateral MR#: [id number] Acct: [id number] Name: ABRAN SAENZ Rep #: [id number] : 1940 F 78 From: Angel Kyle MD PCP: Momo Carvajal MD, Chi Status: REG ER Study: Chest PA and Lateral Date of Exam: 12/03/18 Exam# [id number] Ordering Dr: Mark Hager MD STUDY: X-RAY [...] CC: Mark Hager MD; Momo Carvajal MD Print Traffic Manager: Signed BASIC METABOLIC Collected: 11/26/2018 Status: F Source: [place] PROFILE (BMP) 3:19 PM [facility] REPOSITORY TYPE [...] GAP 10 Performed By: #### L500.2500 #### [facility] [address] [facility] [place], [address] EMERGENCY DEPARTMENT Observed: 11/18/2018 Status: F Source: [place] SUMMARY 1:14 AM [facility] REPOSITORY [facility] Medical Records Department [address] [place] [address] Emergency Department Summary 11/03/18 0746 MR#: [id number] Acct: [id number] Name: ABRAN SAENZ Rep #: [id number] : 1940 78 From: Orlando Shaffer DO [...] attempting to get the patient transferred to [facility] facility on [address] in the late afternoon. Patient will need follow-up for the lung mass seen on CT. Impression: 1. COPD exacerbation 2. Mucus plugging 3. Lung mass This note was generated with [employer] dictation software. It may contain incorrect words, [...] your Primary Care Provider. Call [facility] ([phone]) or report to the closest Emergency Room. Call 911 if necessary. 11/18/18 0114 <Electronically signed by Orlando Shaffer DO> Date Orlando Shaffer DO Cosigner Signature (If Indicated): Date CC: Momo Carvajal MD 12 LEAD ELECTROCARDIOGRAM Observed: 11/17/2018 Status: F Source: [place] 1:54 PM [facility] REPOSITORY [facility] Cardiovascular Services [address] [place] [address] 12 Lead EKG 11/03/18 0748 MR#: [id number] Acct: [id number] Name: ABRAN SAENZ Rep #: [id number] : 1940 78 From: Orlando Baer MD [...] Borderline ECG Confirmed by ORLANDO BAER ([id number]), online editor LEON DURAN ([id number]) on 11/17/2018 1:53:36 PM Referred By: JESSICA Confirmed By:ORLANDO ABER 11/17/18 1353 Date Orlando Baer MD CC: [...] MPV 9.6 Performed By: #### L100.0500 #### [facility] [place], [address] BASIC METABOLIC Collected: 11/14/2018 Status: F Source: [...] GAP 8 Performed By: #### L500.2500 #### [facility] [address] [place], [place], [address] CBC-COMPLETE BLOOD CNT Collected: 11/07/2018 Status: F [...] MPV 10.5 Performed By: #### L100.0500 #### [facility] [address] [facility]. [place], [place], [address] BASIC METABOLIC Collected: 11/07/2018 Status: F Source: [...] GAP 7 Performed By: #### L500.2500 #### [facility] [address] [facility] [place], [address] CHEST WITHOUT Observed: 11/03/2018 Status: F Source: [place] CONTRAST 12:20 PM [facility] REPOSITORY [facility] Imaging Services [address] [place] [address] Chest without Contrast MR#: [id number] Acct: [id number] Name: ABRAN SAENZ Rep #: [id number] : 1940 F 78 From: Laisha Mcclain MD PCP: Wei PRYOR,Momo Pfeiffer Status: REG ER Study: Chest without Contrast Date of Exam: 11/03/18 Exam# [id number] Ordering Dr: Orlando Shaffer DO STUDY: CT [...] CC: Orlando Shaffer DO; Momo Carvajal MD Print Traffic Manager: Signed CBC W/DIFF, AUTOMATED Collected: 11/03/2018 Status: [...] Lymph 1.24 Performed By: #### L100.0100 #### [facility] [address] [place], [address] COMPREHENSIVE METABOLIC Collected: 11/03/2018 Status: F Source: [place] [facility] 9:40 AM [facility] REPOSITORY [...] 8 Performed By: #### L500.4050, L501.4010 #### [facility] [address] [facility] [place], [address] TROPONIN-I Collected: 11/03/2018 Status: F Source: [place] 9:40 AM [facility] REPOSITORY TYPE CODE TESTS RESULT OUT OF RANGE REFERENCE UNITS LAB L501.4010 <0.045 ng/mL Normal < 0.015 TROPONIN-I Result Comment: TROPONIN-I EXPECTED VALUES <0.045 Negative 0.045 - 0.590 Consistent with Cardiac Damage > OR = 0.600 Critical Value Not every elevated troponin is indicative of MA. These values should be used with clinical judgement in examining the patient's clinical picture for diagnosis. To establish a diagnosis of MA versus myocardial injury, there must be a demonstrated rise and/or fall in the troponin values, in addition to ischemic symptoms, EKG changes, new regional wall motion abnormality, and/or angiographical evidence. PLEASE NOTE: REFERENCE RANGES EDITED 18 Performed By: #### L500.4050, L501.4010 #### [facility] [address] [facility] [place], [address] BNP,B-TYPE NATRIURETIC Collected: 11/03/2018 Status: F Source: [place] PEPTIDE 9:40 AM [facility] REPOSITORY TYPE CODE TESTS RESULT OUT OF RANGE REFERENCE UNITS LAB L503.6620 0-100 pg/mL Normal B-TYPE 53.2 [place] PEP Performed By: #### L503.6620 #### [facility] [address] [place], [address] CHEST 1 VIEW Observed: 11/03/2018 Status: F Source: [place] (PORTABLE) 7:31 AM [facility] REPOSITORY [facility] Imaging Services [address] [place] [address] Chest 1 View (Portable) MR#: [id number] Acct: [id number] Name: ABRAN SAENZ Rep #: [id number] : 1940 F 78 From: Felicitas Mancera MD PCP: Momo Carvajal MD, Chi Status: REG ER Study: Chest 1 View (Portable) Date of Exam: 11/03/18 Exam# [id number] Ordering Dr: Orlando Shaffer DO STUDY: X-RAY [...] CC: Orlando Shaffer DO; Momo Carvajal MD Print Traffic Manager: Signed DISCHARGE SUMMARY Observed: 10/31/2018 Status: F Source: [place] 2:35 PM [facility] REPOSITORY [facility] Medical Records Department [address] [place] [address] Discharge Summary 10/31/18 1117 MR#: [id number] Acct: [id number] Name: ABRAN SAENZ Rep #: [id number] : 1940 78 From: Neal Pop MD PCP: Momo Carvajal MD, Chi Status: ADM IN Location: [address] ADDENDUM by Neal Pop MD on [...] with viral bronchitis influenza B and human [place] pneumo virus with suspicion of possible bacterial [...] with mild proteinuria, mild hyperkalemia and hyponatremia: Head Of Sales Promotion Dr. Chu was consulted. UA was done by vermin exterminator. UA shows protein 30, LE 500, RBC 5200, WBC 0-5, random sodium 7 and creatinine 30. Specific gravity 1.01 normal. Patient was given Kayexalate for K5.8. Repeat potassium is 4.1. Sodium is still low at 128. Head Of Sales Promotion recommended to continue IV fluid. Patient wants to go home. Patient was advised follow-up BMP on 11/03/[address] Carvajal. This was discussed with vermin exterminator Dr. Chu. 3. Acute COPD exacerbation, probably secondary to influenza B and human [place] viral bronchitis: Patient has seen Dr. Barrow before, not following with event decorator, on IV solumedrol, breathing treatments, oral azithromycin, [...] 88.3 H, Lymph % (Auto) 5.2 L, Piatt % (Auto) 5.6, Eos % (Auto) 0.1, [...] applicable Code Visit Inpatient E AND M: [id number] Disch Hosp 10/31/18 1308 <Electronically signed by Neal Pop MD> Date Neal Pop MD Cosigner Signature (if applicable): Date CC: Neal Pop MD; Momo Carvajal MD Signed 12 LEAD ELECTROCARDIOGRAM Observed: 10/31/2018 Status: F Source: [place] 2:12 PM [facility] REPOSITORY [facility] Cardiovascular Services [address] [place] [address] 12 Lead EKG 10/29/18 0853 MR#: [id number] Acct: [id number] Name: ABRAN SAENZ Rep #: [id number] : 1940 78 From: Gamaliel Capellan MD Attending Dr: Neal Pop MD Status: ADM IN Ordering Dr: Neal Pop MD Date: 10/29/18 Location: [facility] Sex: F C Admitted: 10/26/18 Test [...] IS UNCONFIRMED Confirmed by GAMALIEL CAPELLAN MD ([id number]), online editor LEON DURAN ([id number]) on 10/31/2018 2:11:58 PM Referred By: DONN Confirmed By:GAMALIEL CAPELLAN MD 10/31/18 141 Date Gamaliel Capellan MD CC: Neal Pop MD; Momo Carvajal MD Signed DISCHARGE INSTRUCTION Observed: 10/31/2018 Status: F Source: [place] 1:09 PM [facility] REPOSITORY [facility] Medical Records Department [address] [place] [address] Instructions for Home/Discharge Instructions 10/31/18 1115 MR#: [id number] Acct: [id number] Name: ABRAN SAENZ Rep #: [id number] : 1940 78 From: Neal Pop MD [...] aureus isolated. Performed By: #### M100.0800 #### [facility] [address] [place], [address] BASIC METABOLIC Collected: 10/31/2018 Status: F Source: [...] GAP 10 Performed By: #### L500.2500 #### [facility] [address] [place] [address]. [place], [place], [address] CBC W/DIFF, AUTOMATED Collected: 10/31/2018 Status: F Source: [place] 5:34 AM [facility] REPOSITORY [...] Lymph 0.47 Performed By: #### L100.0100 #### [facility] [address] [facility] [place], [address] CONSULTATION Observed: 10/30/2018 Status: F Source: [place] 9:29 PM [facility] REPOSITORY [facility] Medical Records Department [address] [place] [address] Consultation 10/29/18 1204 MR#: [id number] Acct: [id number] Name: ABRAN SAENZ Rep #: [id number] : 1940 78 From: Louise Chu DO PCP: Wei PRYOR,Momo Pfeiffer Status: ADM IN Y Location: [place] [address] Consultation - Renal 10/29/18 PCP/ Referring MD: [...] mg Albuterol/Ipratropium (Duoneb) 3 ml INHALATION Q4HWA.RT [facility] Last Admin: 10/29/18 10:59 Dose: 3 ml Aspirin (Aspirin, Baby) 81 mg PO DAILY@0800 [facility] Last Admin: 10/29/18 08:52 Dose: 81 mg Atorvastatin Calcium (Lipitor) 80 mg PO QHS [facility] Last Admin: 10/28/18 21:06 Dose: 80 mg Benzonatate (Tessalon Perle) 200 mg PO TID [facility] Calcium/Vitamin D (Os-Guillermo 500mg + D) 1 tablet PO DAILY [facility] Last Admin: 10/29/18 08:52 Dose: 1 tablet Dibucaine (Dibucaine) 1 applic TOPICAL 4X/DAY PRN PRN PRN Reason: anal pain Enoxaparin Sodium (Lovenox) 40 mg SC DAILY [facility] Last Admin: 10/29/18 08:52 Dose: Not Given Furosemide (Lasix) 40 mg IV Q12H [facility] Guaifenesin (Mucinex) 1,200 mg PO BID [facility] Sodium Chloride () 250 mls @ 15 mls/hr IV .[id number] PRN PRN Reason: SALINE FLUSH Last Admin: 10/26/18 17:14 Dose: 15 mls/hr Lisinopril (Zestril) 5 mg PO DAILY [facility] Last Admin: 10/29/18 08:52 Dose: 5 mg Methylprednisolone (Solu-Medrol) 40 mg IV Q8 [facility] Last Admin: 10/29/18 05:42 Dose: 40 mg Oseltamivir Phosphate (Tamiflu) 30 mg PO BID [facility] Stop: 10/31/18 22:01 Last Admin: 10/29/18 08:52 [...] MD Signed Observed: 10/30/2018 Status: F Source: [place] LEGIONELLA ANTIGEN 1:20 PM [facility] URINE REPOSITORY Interface Comments: use off of urine already collected Legionella, UR Legionella Antigen result interpretation: Negative Presumptive negative for Legionella pneumophila serogroup 1 antigen in urine, suggesting no recent or current infection. Legionella Ag, Urine Negative (See interpretation below) Performed By: #### M300.4500 #### [facility] [place] [facility]. [place], [place], [id number] STREP Observed: 10/30/2018 Status: F Source: CHRISTOPHER [...] interpretation below) Performed By: #### M300.4600 #### [facility] [address] [place], [place], [address] Observed: 10/30/2018 Status: F Source: CHRISTOPHER CULTURE, URINE 1:20 PM [facility] REPOSITORY Comments: add to UA please Urine Culture ORGANISM 1: Enterococcus faecalis [place] Count 50,000-80,000 Enterococcus faecalis: REACTION Ampicillin $ <=2 S Benzylpenicillin NF 4 S Gentamicin SYN-S S Linezolid $$$$ 2 S Tigecycline $$$$ <=0.12 S Streptomycin $ SYN-R R Vancomycin $ 1 S (NF) indicates non-formulary drug at [facility]. Approval by Infectious Disease Specialist required before non-formulary drugs may be ordered and/or dispensed. * CLSI guidelines does not recommend testing of cephalosporins. This interpretation is deduced from Beta-lactam/penicillin results. Performed By: #### M100.0650 #### [facility] [address] [facility] [place], [address] CHEST PA AND LATERAL Observed: 10/30/2018 Status: F Source: ROBINSON 12:21 PM [facility] REPOSITORY [facility] Imaging Services [address] [place] [address] Chest PA and Lateral MR#: [id number] Acct: [id number] Name: ABRAN SAENZ Rep #: [id number] : 1940 F 78 From: Gilson Poole MD PCP: Wei PRYOR,Momo Pfeiffer Status: ADM IN Study: Chest PA and Lateral Date of Exam: 10/30/18 Exam# [id number] Ordering Dr: Neal Pop MD STUDY: X-RAY [...] EST , Service support , CC: Neal oPp MD; Momo Carvajal MD Print Traffic Manager: Signed BNP,B-TYPE NATRIURETIC Collected: 10/30/2018 Status: F Source: CHRISTOPHER PEPTIDE 7:50 AM [facility] REPOSITORY TYPE CODE TESTS RESULT OUT OF RANGE REFERENCE UNITS LAB L503.6620 0-100 pg/mL Normal B-TYPE 66.1 THOMAS PEP Performed By: #### L503.6620 #### [facility] [address] [place], [place], [address] BASIC METABOLIC Collected: 10/30/2018 Status: F Source: ROBINSON PROFILE (BMP) 7:50 AM [facility] GAP 12 Performed By: #### L500.2500 #### [facility] [address] [place], [address] BASIC METABOLIC Collected: 10/29/2018 Status: F Source: ROBINSON PROFILE (BMP) 6:00 PM [facility] GAP 11 Performed By: #### L500.2500 #### [facility] [address] [place], [address] 12 LEAD ELECTROCARDIOGRAM Observed: 10/29/2018 Status: F Source: CHRISTOPHER 3:29 PM [facility] REPOSITORY [facility] Cardiovascular Services [address] [place] [address] 12 Lead EKG 10/25/18 2332 MR#: [id number] Acct: [id number] Name: ABRAN SAENZ Rep #: [id number] : 1940 78 From: Gamaliel Capellan MD Attending Dr: Neal Pop MD Status: ADM IN Ordering Dr: Juan Khalil MD Date: 10/25/18 Location: [facility] Sex: F C Admitted: 10/26/18 Test [...] ECG Confirmed by GAMALIEL CAPELLAN MD ([id number]), online editor LEON DURAN ([id number]) on 10/29/2018 3:29:24 PM Referred By: TOM Confirmed By:GAMALIEL CAPELLAN MD 10/29/18 1529 Date Gamaliel Capellan MD CC: Juan Khalil MD; Neal Pop MD; Momo Carvajal MD Signed URINALYSIS, COMPLETE Collected: 10/29/2018 Status: F Source: ROBINSON 1:20 PM [facility] REPOSITORY Order Comment: How was Urine Obtained? BACK WEDGER TO SPECIFY TYPE CODE TESTS RESULT OUT [...] MUCUS, URINE Performed By: #### L400.0001 #### [facility] [address], [place], [address] URINE SODIUM Collected: 10/29/2018 Status: F Source: ROBINSON 1:20 PM [facility] REPOSIT[facility] TYPE CODE TESTS RESULT OUT OF RANGE REFERENCE UNITS LAB L501.5500 Not Establ. mmol/L Normal UR NA 7 Performed By: #### L501.5500 #### [facility] [address] [place], [address] CREATININE, URINE Collected: 10/29/2018 Status: F Source: CHRISTOPHER (RANDOM) 1:20 PM [facility] REPOSIT[facility] TYPE CODE TESTS RESULT OUT OF RANGE REFERENCE UNITS LAB L501.1200 NO RANGE EST. mg/dL Normal UR CREAT 30.40 Performed By: #### L501.1200 #### [facility] [address] [place], [address] BASIC METABOLIC Collected: 10/29/2018 Status: F Source: [...] GAP 10 Performed By: #### L500.2500 #### [facility] [address] [place], [place], [address] KIDNEY AND BLADDER Observed: 10/29/2018 Status: F Source: CHRISTOPHER 12:14 PM [facility] REPOSITORY [facility] Imaging Services [address] [place] [address] Kidney and Bladder MR#: [id number] Acct: [id number] Name: ABRAN SAENZ Rep #: [id number] : 1940 F 78 From: Jonny Andrade MD PCP: Wei PRYOR,Momo Pfeiffer Status: ADM IN Study: Kidney and Bladder Date of Exam: 10/29/18 Exam# [id number] Ordering Dr: Louise Chu DO STUDY: RENAL [...] CC: Louise Chu DO; Momo Carvajal MD Print Traffic Manager: Signed BASIC METABOLIC Collected: 10/29/2018 Status: F [...] 9 Performed By: #### L500.2500, L501.5200 #### [facility] [address] [place], [address] MAGNESIUM Collected: 10/29/2018 Status: F Source: ROBINSON 5:45 AM [facility] REPOSIT[facility] TYPE CODE TESTS RESULT OUT OF RANGE REFERENCE UNITS LAB L501.5200 1.6-2.6 mg/dL Normal MG 1.9 Performed By: #### L500.2500, L501.5200 #### [facility] [address] [place], [address] CHEST PA AND LATERAL Observed: 10/28/2018 Status: F Source: ROBINSON 12:30 PM [facility] REPOSITORY [facility] Imaging Services [address] [place] [address] Chest PA and Lateral MR#: [id number] Acct: [id number] Name: ABRAN SAENZ Rep #: [id number] : 1940 F 78 From: Jonny Andrade MD PCP: Momo Carvajal MD, Chi Status: ADM IN Study: Chest PA and Lateral Date of Exam: 10/28/18 Exam# [id number] Ordering Dr: Neal Pop MD STUDY: X-RAY [...] CC: Neal Pop MD; Momo Carvajal MD Print Traffic Manager: Signed ECHOCARDIOGRAM COMPLETE Observed: 10/27/2018 Status: F Source: ROBINSON 4:15 PM [facility] REPOSITORY [facility] Cardiovascular Services [address] [place] [address] Echo Complete 10/27/18 1128 MR#: [id number] Acct: [id number] Name: ABRAN SAENZ Rep #: [id number] : 1940 78 From: Gamaliel Capellan MD Attending Dr: Neal Pop MD Status: ADM IN Ordering Dr: Mike Rushing MD Date: 10/26/18 Location: [facility] Sex: F C Admitted: 10/26/18 Reason [...] V2 max: 196.3 cm/sec MV A max tritsan: 172.6 cm/sec E/E' lat: 10.8 MV max [...] MD Date Dictated: 10/27/18 1128 Date Transcribed: 10/27/181613 Print Traffic Manager: Signed BASIC METABOLIC Collected: 10/27/2018 Status: F [...] GAP 9 Performed By: #### L500.2500 #### [facility] [address] [place], [place], [address] CBC W/DIFF, AUTOMATED Collected: 10/27/2018 Status: F Source: ROBINSON 5:15 AM [facility] REPOSITORY [...] MORPH LARGE Performed By: #### L100.0100 #### [facility] [address] [facility]. [place], [place], [address] Observed: 10/26/2018 Status: F Source: ROBINSON INFLUENZA A+B (RAPID 1:30 PM [facility]) REPOSITORY FLU A/B Rapid Negative test results should be confirmed by culture. Order Rapid Viral Culture for Influenzae A+B (735195) if clinically indicated. Influenza Ag, Direct Presumptive NEGATIVE for Influenza A/B Antigen (See Note) Performed By: #### M101.0101, M100.638 #### [facility] [address] [facility]. [place], [place], [address] Observed: 10/26/2018 Status: F Source: ROBINSON RESPIRATORY PANEL 1:30 PM [facility] META Performed By: #### M101.0101, M100.638 #### [facility] [address] [place], [place], [address] TROPONIN-I Collected: 10/26/2018 Status: F Source: CHRISTOPHER 10:46 AM [facility] REPOSITORY Order Comment: 'TROP' Serial specimen #1, #2 or #3: 3 TYPE CODE TESTS RESULT OUT OF RANGE REFERENCE UNITS LAB L501.4010 <0.045 ng/mL Normal < 0.015 TROPONIN-I Result Comment: TROPONIN-I EXPECTED VALUES <0.045 Negative 0.045 - 0.590 Consistent with Cardiac Damage > OR = 0.600 Critical Value Not every elevated troponin is indicative of MA. These values should be used with clinical judgement in examining the patient's clinical picture for diagnosis. To establish a diagnosis of MA versus myocardial injury, there must be a demonstrated rise and/or fall in the troponin values, in addition to ischemic symptoms, EKG changes, new regional wall motion abnormality, and/or angiographical evidence. PLEASE NOTE: REFERENCE RANGES EDITED 18 Performed By: #### L501.4010 #### [facility] [address] [place], [place], [address] TROPONIN-I Collected: 10/26/2018 Status: F Source: ROBINSON 7:30 AM [facility] REPOSITORY Order Comment: 'TROP' Serial specimen #1, #2 or #3: 2 TYPE CODE TESTS RESULT OUT OF RANGE REFERENCE UNITS LAB L501.4010 <0.045 ng/mL Normal < 0.015 TROPONIN-I Result Comment: TROPONIN-I EXPECTED VALUES <0.045 Negative 0.045 - 0.590 Consistent with Cardiac Damage > OR = 0.600 Critical Value Not every elevated troponin is indicative of MA. These values should be used with clinical judgement in examining the patient's clinical picture for diagnosis. To establish a diagnosis of MA versus myocardial injury, there must be a demonstrated rise and/or fall in the troponin values, in addition to ischemic symptoms, EKG changes, new regional wall motion abnormality, and/or angiographical evidence. PLEASE NOTE: REFERENCE RANGES EDITED 18 Performed By: #### L501.4010 #### [facility] [address] [place], [place], [address] PROTHROMBIN TIME W/INR Collected: 10/26/2018 Status: F Source: CHRISTOPHER 5:00 AM [facility] REPOSITORY TYPE CODE TESTS RESULT OUT OF RANGE REFERENCE UNITS LAB L300.4150 11.7-14.9 SECONDS Normal PROTIME 12.9 LAB L300.4200 Normal INR 1.0 Performed By: #### L300.3900 #### [facility] [place], [address] CBC W/DIFF, AUTOMATED Collected: 10/26/2018 Status: F Source: CHRISTOPHER 5:00 [...] Lymph 0.60 Performed By: #### L100.0100 #### [facility] [address] [place], [place], [address] BASIC METABOLIC Collected: 10/26/2018 Status: F Source: CHRISTOPHER PROFILE ([facility]) 5:00 AM [facility] REPOSITORY [...] L500.2500, L500.4100, L501.4010, L501.5200, L501.9520, L503.6620 #### [facility] [address] [place], [place], [address] LIPID PROFILE Collected: 10/26/2018 Status: F Source: [...] L500.2500, L500.4100, L501.4010, L501.5200, L501.9520, L503.6620 #### [facility] [address] [place], [address] TROPONIN-I Collected: 10/26/2018 Status: F Source: ROBINSON 5:00 AM [facility] REPOSITORY Order Comment: 'TROP' Serial specimen #1, #2 or #3: 1 TYPE CODE TESTS RESULT OUT OF RANGE REFERENCE UNITS LAB L501.4010 <0.045 ng/mL Normal < 0.015 TROPONIN-I Result Comment: TROPONIN-I EXPECTED VALUES <0.045 Negative 0.045 - 0.590 Consistent with Cardiac Damage > OR = 0.600 Critical Value Not every elevated troponin is indicative of MA. These values should be used with clinical judgement in examining the patient's clinical picture for diagnosis. To establish a diagnosis of MA versus myocardial injury, there must be a demonstrated rise and/or fall in the troponin values, in addition to ischemic symptoms, EKG changes, new regional wall motion abnormality, and/or angiographical evidence. PLEASE NOTE: REFERENCE RANGES EDITED 18 Performed By: #### L500.2500, L500.4100, L501.4010, L501.5200, L501.9520, L503.6620 #### [facility] [address] [place], [address] MAGNESIUM Collected: 10/26/2018 Status: F Source: CHRISTOPHER 5:00 AM [facility] REPOSITORY Order Comment: 'TROP' Serial specimen #1, #2 or #3: 1 TYPE CODE TESTS RESULT OUT OF RANGE REFERENCE UNITS LAB L501.5200 1.6-2.6 mg/dL Normal MG 2.0 Performed By: #### L500.2500, L500.4100, L501.4010, L501.5200, L501.9520, L503.6620 #### [facility] [address] [place], [place], [address] THYROID STIM HORMONE Collected: 10/26/2018 Status: F Source: CHRISTOPHER (TSH) 5:00 AM [facility] REPOSITORY Order Comment: 'TROP' Serial specimen #1, #2 or #3: 1 TYPE CODE TESTS RESULT OUT OF RANGE REFERENCE UNITS LAB L501.9520 0.358-3.74 uIU/mL Normal TSH 1.11 Performed By: #### L500.2500, L500.4100, L501.4010, L501.5200, L501.9520, L503.6620 #### [facility] [address] [place], [place], [address] BNP,B-TYPE NATRIURETIC Collected: 10/26/2018 Status: F Source: CHRISTOPHER PEPTIDE 5:00 AM [facility] REPOSITORY TYPE CODE TESTS RESULT OUT OF RANGE REFERENCE UNITS LAB L503.6620 0-100 pg/mL Normal B-TYPE 98.3 THOMAS PEP Performed By: #### L500.2500, L500.4100, L501.4010, L501.5200, L501.9520, L503.6620 #### [facility] [address] [place], [place], [address] HISTORY AND PHYSICAL Observed: 10/26/2018 Status: F Source: ROBINSON EXAM 4:22 AM [facility] REPOSITORY [facility] Medical Records Department [address] [place] [address] History and Physical 10/26/18 0405 MR#: [id number] Acct: [id number] Name: ABRAN SAENZ Rep #: [id number] : 1940 78 From: Mike Rushing MD PCP: Wei PRYOR,Momo Pfeiffer Status: ADM IN Y Location: [place] [address] Problem List (1) Acute congestive heart failure [...] youth. Psychiatric History: No pertinent psych hx COUNTER MOLDER History: No pertinent COUNTER MOLDER history Lives: Spouse/ Significant Other Smoking Status: [...] Prophylaxis: SCD / lovenox Code Visit Inpatient Tanner AND M: [id number] Init Hosp L3 10/26/18 0422 <Electronically signed by Mike Rushing MD> Date Mike Rushing MD Cosigner Signature: Date (if applicable) CC: Mike Rushing MD; Momo Carvajal MD Signed EMERGENCY DEPARTMENT Observed: 10/26/2018 Status: F Source: ROBINSON SUMMARY 1:33 AM [facility] REPOSITORY [facility] Medical Records Department [address] [place] [address] Emergency Department Summary 10/26/18 0128 MR#: [id number] Acct: [id number] Name: ABRAN SAENZ Rep #: [id number] : 1940 78 From: Juan Khalil MD [...] CHF exacerbation This note was generated with [employer] dictation software. It may contain incorrect words, [...] problems, contact your Primary Care Provider. Call [facility] ([phone]) or report to the closest Emergency Room. [...] ACID 1.0 Performed By: #### L503.6005 #### [facility] [address] [place], [address] Observed: 10/26/2018 Status: F Source: CHRISTOPHER CULTURE, BLOOD (WB) 1:15 AM [facility] REPOSITORY BC No growth in 5 days. Performed By: #### M200.1000 #### [facility] [address], [address] CBC W/DIFF, AUTOMATED Collected: 10/26/2018 Status: F [...] Lymph 0.97 Performed By: #### L100.0100 #### [facility] [address] [place], [address] BASIC METABOLIC Collected: 10/26/2018 Status: F Source: CHRISTOPHER PROFILE (BMP) 12:45 AM [facility] [...] 9 Performed By: #### L500.2500, L501.4010 #### [facility] [address] [place], [address] TROPONIN-I Collected: 10/26/2018 Status: F Source: CHRISTOPHER 12:45 AM [facility] REPOSITORY TYPE CODE TESTS RESULT OUT OF RANGE REFERENCE UNITS LAB L501.4010 <0.045 ng/mL Normal < 0.015 TROPONIN-I Result Comment: TROPONIN-I EXPECTED VALUES <0.045 Negative 0.045 - 0.590 Consistent with Cardiac Damage > OR = 0.600 Critical Value Not every elevated troponin is indicative of MA. These values should be used with clinical judgement in examining the patient's clinical picture for diagnosis. To establish a diagnosis of MA versus myocardial injury, there must be a demonstrated rise and/or fall in the troponin values, in addition to ischemic symptoms, EKG changes, new regional wall motion abnormality, and/or angiographical evidence. PLEASE NOTE: REFERENCE RANGES EDITED 18 Performed By: #### L500.2500, L501.4010 #### [facility] [address] [facility] [place], [address] BNP,B-TYPE NATRIURETIC Collected: 10/26/2018 Status: F Source: ROBINSON PEPTIDE 12:45 AM [facility] REPOSITORY TYPE CODE TESTS RESULT OUT OF RANGE REFERENCE UNITS LAB L503.6620 0-100 pg/mL Normal B-TYPE 76.8 THOMAS PEP Performed By: #### L503.6620 #### [facility] [address] [facility] [place], [address] CHEST 1 VIEW Observed: 10/25/2018 Status: F Source: CHRISTOPHER (PORTABLE) 11:51 PM [facility] REPOSITORY [facility] Imaging Services [address] [place] [address] Chest 1 View (Portable) MR#: [id number] Acct: [id number] Name: ABRAN SAENZ Rep #: [id number] : 1940 F 78 From: Santino Mancuso MD PCP: Wei PRYOR,SiOnyx Status: REG ER Study: Chest 1 View (Portable) Date of Exam: 10/25/18 Exam# [id number] Ordering Dr: Juan Khalil MD STUDY: X-RAY [...] The heart is enlarged. Normal mediastinum and ofuzia. Normal visualized pulmonary arteries. Normal visualized aortic [...] CC: Juan Khalil MD; Momo Carvajal MD Print Traffic Manager: Signed Observed: 10/25/2018 Status: F Source: ROBINSON CULTURE, BLOOD (WB) 1:05 AM [facility] REPOSITORY BC No growth in 5 days. Performed By: #### M200.1000 #### [facility] [place], [address] CBC W/DIFF, AUTOMATED Collected: 10/22/2018 Status: F Source: ROBINSON 2:38 PM [facility] REPOSITORY [...] Lymph 1.46 Performed By: #### L100.0100 #### [facility] [address] [place], [address] COMPREHENSIVE METABOLIC Collected: 10/22/2018 Status: F Source: [facility] 2:38 PM [facility] [...] 8 Performed By: #### L500.4050, L501.9520 #### [facility] [address] [facility] [place], [place], [address] THYROID STIM HORMONE Collected: 10/22/2018 Status: F Source: CHRISTOPHER (TSH) 2:38 PM [facility] REPOSITORY TYPE CODE TESTS RESULT OUT OF RANGE REFERENCE UNITS LAB L501.9520 0.358-3.74 uIU/mL Normal TSH 1.74 Performed By: #### L500.4050, L501.9520 #### [facility] [address] [facility] [place], [address] VITAMIN D,25 HYDROXY Collected: 10/22/2018 Status: F [...] (>250 nmol/L) Performed By: #### L506.1000 #### [facility] [address] [place], [place], [address] COMPREHENSIVE METABOLIC Collected: 04/22/2018 Status: F Source: CHRISTOPHER [place] 3:18 PM [facility] REPOSITORY [...] 10 Performed By: #### L500.4050, L501.9520 #### [facility] [address] [place], [place], [address] THYROID STIM HORMONE Collected: 04/22/2018 Status: F Source: CHRISTOPHER (TSH) 3:18 PM [facility] REPOSITORY TYPE CODE TESTS RESULT OUT OF RANGE REFERENCE UNITS LAB L501.9520 0.358-3.74 uIU/mL Normal TSH 1.38 Performed By: #### L500.4050, L501.9520 #### [facility] [address] [place], [address] CBC W/DIFF, AUTOMATED Collected: 04/22/2018 Status: F Source: CHRISTOPHER 3:18 PM [facility] REPOSITORY [...] Lymph 1.77 Performed By: #### L100.0100 #### [facility] [address] [place], [address] VITAMIN D,25 HYDROXY Collected: 04/22/2018 Status: F Source: ROBINSON 3:18 PM [facility] REPOSITORY [...] (>250 nmol/L) Performed By: #### L506.1000 #### [facility] [address] [facility] [place], [address] DISCHARGE SUMMARY Observed: 02/02/2018 Status: F Source: ROBINSON 12:03 PM [facility] REPOSITORY [facility] Medical Records Department [address] [place] [address] [place] [address] Discharge Summary 02/02/18 1155 MR#: [id number] Acct: [id number] Name: ABRAN SAENZ Rep #: [id number] : 1940 77 From: Han Quan MD PCP: Wei PRYOR,Momo Chi Status: ADM IN Y Location: [place] [address] Discharge Date and Diagnosis - Problem List [...] F seen in the emergency room at [facility] with a chief complaint of increased shortness of breath her release from the hospital . She was initially hospitalized from [facility] 01/28/2018 and treated for pneumonia with IV [...] applicable Code Visit Inpatient E AND M: 04328 Disch Hosp 02/02/18 1203 <Electronically signed by Han Quan MD> Date Han Quan MD Cosigner Signature (if applicable): Date CC: Han Quan MD; Momo Carvajal MD Signed DISCHARGE INSTRUCTION Observed: 02/02/2018 Status: F Source: ROBINSON 11:55 AM [facility] REPOSITORY [facility] Medical Records Department [address] [place] [address] Instructions for Home/Discharge Instructions 02/02/18 1154 MR#: [id number] Acct: [id number] Name: ABRAN SAENZ Rep #: [id number] : 1940 77 From: Han Quan MD [...] GAP 6 Performed By: #### L500.2500 #### [facility] [address] [facility] [place], [address] CHEST 1 VIEW Observed: 02/01/2018 Status: F Source: ROBINSON (PORTABLE) 12:00 AM [facility] REPOSITORY [facility] Imaging Services [address] [place] [address] Chest 1 View (Portable) MR#: [id number] Acct: [id number] Name: ABRAN SAENZ Rep #: [id number] : 1940 F 77 From: Vincent Hidalgo PCP: Wie PRYOR,SiOnyx Status: ADM IN Study: Chest 1 View (Portable) Date of Exam: 02/01/18 Exam# [id number] Ordering Dr: Catrachito Holley DO STUDY: X-RAY [...] CC: Catrachito Holley DO; Momo Carvajal MD Print Traffic Manager: Signed 12 LEAD ELECTROCARDIOGRAM Observed: 01/31/2018 Status: F Source: CHRISTOPHER 1:45 PM [facility] REPOSITORY [facility] Cardiovascular Services [address] [facility] [place] [place] [address] 12 Lead EKG 01/29/18 0740 MR#: [id number] Acct: [id number] Name: ABRAN SAENZ Rep #: [id number] : 1940 77 From: Gamaliel Capellan MD Attending Dr: Catrachito Holley DO Status: ADM IN Ordering Dr: Santino Quinones MD Date: 01/29/18 Location: [facility] Sex: F C Admitted: 01/29/18 Test [...] ECG Confirmed by GAMALIEL CAPELLAN MD ([id number]), online editor LEON DURAN ([id number]) on 01/31/2018 1:45:19 PM Referred By: SL Confirmed By:GAMALIEL CAPELLAN MD 01/31/18 1345 Date Gamaliel Capellan MD CC: Santino Quinones MD; Momo Carvajal MD Signed BASIC METABOLIC Collected: 01/31/2018 Status: F Source: CHRISTOPHER PROFILE (B[facility]) 5:25 AM [facility] TYPE CODE TESTS RESULT [...] GAP 5 Performed By: #### L500.2500 #### [facility] [address] [facility] [place], [address] CHEST 1 VIEW Observed: 01/31/2018 Status: F Source: CHRISTOPHER (PORTABLE) 12:01 AM [facility] REPOSITORY [facility] Imaging Services [address] [place] [address] Chest 1 View (Portable) MR#: [id number] Acct: [id number] Name: ABRAN SAENZ Rep #: [id number] : 1940 F 77 From: Bonnie Torres MD PCP: Wei PRYOR,Momo Pfeiffer Status: ADM IN Study: Chest 1 View (Portable) Date of Exam: 01/31/18 Exam# [id number] Ordering Dr: Catrachito Holley DO STUDY: X-RAY [...] CC: Catrachito Holley DO; Momo Carvajal MD Print Traffic Manager: Signed DISCHARGE SUMMARY Observed: 01/30/2018 Status: F Source: ROBINSON 6:55 PM [facility] REPOSITORY [facility] Medical Records Department [address] [place] [address] Discharge Summary 01/30/18 1848 MR#: [id number] Acct: [id number] Name: ABRAN SAENZ Rep #: [id number] : 1940 77 From: Catrachito Holley DO PCP: Wei PRYOR,Momo Pfeiffer Status: DIS IN Y Location: ICU [id number] Discharge Date and Diagnosis - Problem List Patient Problems: Active and Suspected Problems Shortness of breath (Acute) Date of Admission: 01/27/18 Date of Discharge: 01/28/18 - Primary Discharge Diagnosis Active and Suspected Problems #1 acute sepsis secondary to left lower lobe community-acquired otwqibbxv-olmz-zhyyxhqk bacterial #2 left lower lobe community-acquired rpiprzxmi-giib-admkrskl bacterial #3 hypoxia secondary to atelectasis and [...] was seen in the emergency room at [facility] with chief complaint of fever, shortness of [...] applicable Code Visit Inpatient E AND M: 57666 Disch Hosp 01/30/18 4977 <Electronically signed by Catrachito Holley DO> Date Catrachito Holley DO Cosigner Signature (if applicable): Date CC: Catrachito Holley DO; Momo Carvajal MD Signed BASIC METABOLIC Collected: 01/30/2018 Status: F Source: CHRISTOPHER PROFILE (BMP) 6:35 AM [facility] REPOSITORY [...] GAP 8 Performed By: #### L500.2500 #### [facility] [address] [facility] [place], [address] CHEST 1 VIEW Observed: 01/30/2018 Status: F Source: ROBINSON (PORTABLE) 12:00 AM [facility] REPOSITORY [facility] Imaging Services [address] [place] [address] Chest 1 View (Portable) MR#: [id number] Acct: [id number] Name: ABRAN SAENZ Rep #: [id number] : 1940 F 77 From: Gianni White MD PCP: Wei PRYOR,[facility] Status: ADM IN Study: Chest 1 View (Portable) Date of Exam: 01/30/18 Exam# [id number] Ordering Dr: Catrachito Holley DO STUDY: X-RAY [...] CC: Catrachito Holley DO; Momo Carvajal MD Print Traffic Manager: Signed TROPONIN-I Collected: 01/29/2018 Status: F Source: CHRISTOPHER 10:37 PM [facility] REPOSITORY Order Comment: 'TROP' Serial specimen #1, #2, #3, or #4: 4 TYPE CODE TESTS RESULT OUT OF RANGE REFERENCE UNITS LAB L501.4010 <0.06 ng/mL High 0.17 TROPONIN-I Result Comment: TROPONIN-I EXPECTED VALUES <0.05 NEGATIVE 0.06 - 0.59 AT RISK OF MA > OR = 0.60 SUGGEST MA Performed By: #### L501.4010 #### [facility] [address] [facility]. [place], [place], [address] TROPONIN-I Collected: 01/29/2018 Status: F Source: CHRISTOPHER 4:49 PM [facility] REPOSITORY Order Comment: 'TROP' Serial specimen #1, #2, #3, or #4: 3 TYPE CODE TESTS RESULT OUT OF RANGE REFERENCE UNITS LAB L501.4010 <0.06 ng/mL High 0.22 TROPONIN-I Result Comment: TROPONIN-I EXPECTED VALUES <0.05 NEGATIVE 0.06 - 0.59 AT RISK OF MA > OR = 0.60 SUGGEST MA Performed By: #### L501.4010 #### [facility] [address] [place], [address] ECHOCARDIOGRAM COMPLETE Observed: 01/29/2018 Status: F Source: ROBINSON 4:36 PM [facility] REPOSITORY [facility] Cardiovascular Services [address] [place] [address] Echo Complete 01/29/18 1418 MR#: [id number] Acct: [id number] Name: ABRAN SAENZ Rep #: [id number] : 1940 77 From: Orlando Baer MD Attending Dr: Catrachito Holley DO Status: ADM IN Ordering Dr: Catrachito Holley DO Date: 01/29/18 Location: [facility] Sex: F C Admitted: 01/29/18 Reason [...] Dictated: 01/29/18 1418 Date Transcribed: 01/29/18 163 Print Traffic Manager: Signed HISTORY AND PHYSICAL Observed: 01/29/2018 Status: F Source: ROBINSON EXAM 4:08 PM [facility] REPOSITORY [facility] Medical Records Department [address] [place] [address] History and Physical 01/29/18 1558 MR#: [id number] Acct: [id number] Name: ABRAN SAENZ Rep #: [id number] : 1940 77 From: Catrachito Holley DO PCP: Momo Carvajal MD, Chi Status: ADM IN Location: [place] [address] Problem List (1) Shortness of breath Status: Acute History of Present Illness Date of Admission: 01/29/18 Chief Complaint: Shortness of breath The patient is a 77 year old F seen in the emergency room at [facility] with a chief complaint of increased shortness [...] youth. Psychiatric History: No pertinent psych hx COUNTER MOLDER History: No pertinent COUNTER MOLDER history Lives: Spouse/ Significant Other Smoking Status: [...] obesity Code Visit Inpatient E AND M: 98035 Init Hosp L3 01/29/18 1608 <Electronically signed by Catrachito Holley DO> Date Catrachito Holley DO Cosigner Signature: Date (if applicable) CC: Catrachito Holley DO; Momo Carvajal MD Signed EMERGENCY DEPARTMENT Observed: 01/29/2018 Status: F Source: ROBINSON SUMMARY 4:01 PM [facility] REPOSITORY [facility] Medical Records Department [address] [place] [address] Emergency Department Summary 01/29/18 0910 MR#: [id number] Acct: [id number] Name: ABRAN SAENZ Rep #: [id number] : 1940 77 From: Santino Quinones MD [...] neutrophils 83, lymphs at 7 9. PT EMTS is 160.0. Lactic acid 0.5. Chest x-rays [...] 4. Hypoxia. This note was generated with [employer] dictation software. It may contain incorrect words, [...] your Primary Care Provider. Call [facility] ([phone]) or report to the closest Emergency Room. Call 911 if necessary. 01/29/18 1601 <Electronically signed by Santino Quinones MD> Date Santino Quinones MD Cosigner Signature (If Indicated): Date CC: Momo Carvajal MD Observed: 01/29/2018 Status: F Source: CHRISTOPHER CULTURE, BLOOD (WB) 8:34 AM [facility] REPOSITORY NO ANAEROBIC BOTTLE RECEIVED BC No growth in 5 days. Performed By: #### M200.1000 #### [facility] [address] [place], [place] [address]est[place], [address] CBC W/DIFF, AUTOMATED Collected: 01/29/2018 Status: F [...] Lymph 1.00 Performed By: #### L100.0100 #### [facility] [address] [place], [address] BASIC METABOLIC Collected: 01/29/2018 Status: F Source: ROBINSON PROFILE ([facility]) 8:26 AM [facility] REPOSITORY [...] 10 Performed By: #### L500.2500, L501.4010 #### [facility] [address] [place], [place], [address] TROPONIN-I Collected: 01/29/2018 Status: F Source: CHRISTOPHER 8:26 AM [facility] REPOSITORY Order Comment: 'TROP' Serial specimen #1, #2, #3, or #4: 1 TYPE CODE TESTS RESULT OUT OF RANGE REFERENCE UNITS LAB L501.4010 <0.06 ng/mL High 0.21 TROPONIN-I Result Comment: TROPONIN-I EXPECTED VALUES <0.05 NEGATIVE 0.06 - 0.59 AT RISK OF MA > OR = 0.60 SUGGEST MA Performed By: #### L500.2500, L501.4010 #### [facility] [address] [place], [place], [address] BNP,B-TYPE NATRIURETIC Collected: 01/29/2018 Status: F Source: CHRISTOPHER PEPTIDE 8:26 AM [facility] REPOSITORY TYPE CODE TESTS RESULT OUT OF RANGE REFERENCE UNITS LAB L503.6620 0-100 pg/mL High B-TYPE 160.0 THOMAS PEP Performed By: #### L503.6620 #### [facility] [address] [place], [place], [address] LACTIC ACID Collected: 01/29/2018 Status: F Source: CHRISTOPHER 8:26 AM [facility] REPOSITORY Order Comment: Yes/No query for Sepsis Lactate Rule Y TYPE CODE TESTS RESULT OUT OF RANGE REFERENCE UNITS LAB L503.6005 0.4-2.0 mmol/L Normal LACTIC ACID 0.5 Performed By: #### L503.6005 #### [facility] [address] [place], [address] Observed: 01/29/2018 Status: F Source: CHRISTOPHER CULTURE, BLOOD (WB) 8:26 AM [facility] REPOSITORY NO ANAEROBIC BOTTLE RECEIVED BC No growth in 5 days. Performed By: #### M200.1000 #### [facility] [address] [place], [address] CHEST PA AND LATERAL Observed: 01/29/2018 Status: F Source: CHRISTOPHER 7:35 AM [facility] REPOSITORY [facility] Imaging Services [address] [place] [address] Chest PA and Lateral MR#: [id number] Acct: [id number] Name: ABRAN SAENZ Rep #: [id number] : 1940 F 77 From: Angel Kyle MD PCP: Wei PRYOR,Momo [facility] Status: REG ER Study: Chest PA and Lateral Date of Exam: 01/29/18 Exam# [id number] Ordering Dr: Santino Quinones MD STUDY: X-RAY [...] Angel Kyle MD at 9:20 EDT Tel [phone], Service support , CC: Santino Quinones MD; Momo Carvajal MD Print Traffic Manager: Signed CONSULTATION Observed: 01/28/2018 Status: F Source: ROBINSON 4:11 PM [facility] REPOSITORY [facility] Medical Records Department [address] [facility] [place] [address] Consultation 01/28/18 1009 MR#: [id number] Acct: [id number] Name: ABRAN SAENZ Rep #: [id number] : 1940 77 From: Liza Rivera EMTS-C PCP: Momo Carvajal MD, Chi Status: ADM IN Y Location: ICU [id number] ADDENDUM by Jerry Walton MD on 01/28/18 at 1611 Code Visit Patient seen and examined independently in conjunction with nurse practitioner. All data, including note below, was personally reviewed and I agree with the added comments. In brief, patient presented to [facility] on 01/26/2018 secondary to fever, shortness of [...] overall clinical picture. Inpatient E AND M: 37273 Init Hosp L2 01/28/18 1611 <Electronically signed [...] youth. Psychiatric History: No pertinent psych hx COUNTER MOLDER History: No pertinent COUNTER MOLDER history Lives: Spouse/ Significant Other Smoking Status: [...] Angel Kyle MD at 8:55 EDT Tel [phone], Service support , - Physical Exam General: [...] or concerns. This note was generated with [employer] dictation software. It may contain incorrect words, spelling, and punctuation that were not noted in checking the note before signing. 01/28/18 1118 <Electronically signed by Liza HIRSCH> Date Liza HIRSCH Cosigner Signature (if applicable): Date CC: Jerry Walton MD; Momo Carvajal MD Signed DISCHARGE INSTRUCTION Observed: 01/28/2018 Status: F Source: ROBINSON 4:11 PM [facility] REPOSITORY [facility] Medical Records Department [address] [place] [address] Instructions for Home/Discharge Instructions 01/28/18 1608 MR#: [id number] Acct: [id number] Name: ABRAN SAENZ Rep #: [id number] : 1940 77 From: Catrachito Holley DO [...] When: in 2 weeks-call for appointment 01/28/18 6890 <Electronically signed by Catrachito Holley DO> Date Catrachito Holley DO CC: Jerry Walton MD; Momo Carvajal MD 12 LEAD ELECTROCARDIOGRAM Observed: 01/28/2018 Status: F Source: CHRISTOPHER 3:16 PM [facility] REPOSITORY [facility] Cardiovascular Services [address] [place] [address] 12 Lead EKG 01/26/184 MR#: [id number] Acct: [id number] Name: ABRAN SAENZ Rep #: [id number] : 1940 77 From: Gamaliel Capellan MD [...] ECG Confirmed by TIMI PRYOR, GAMALIEL ([id number]), online editor LEON DURAN ([id number]) on 01/28/2018 3:16:36 [...] Lymph 1.21 Performed By: #### L100.0100 #### [facility] [address] [place], [address] BNP,B-TYPE NATRIURETIC Collected: 01/28/2018 Status: F Source: ROBINSON PEPTIDE 4:25 AM [facility] REPOSITORY TYPE CODE TESTS RESULT OUT OF RANGE REFERENCE UNITS LAB L503.6620 0-100 pg/mL Normal B-TYPE 65.0 THOMAS PEP Performed By: #### L503.6620 #### [facility] [address] [place], [address] CHEST 1 VIEW Observed: 01/28/2018 Status: F Source: CHRISTOPHER (PORTABLE) 12:44 AM [facility] REPOSITORY [facility] Imaging Services [address] [place] [address] Chest 1 View (Portable) MR#: [id number] Acct: [id number] Name: ABRAN SAENZ Rep #: [id number] : 1940 F 77 From: Angel Kyle MD PCP: Momo Carvajal MD, Chi Status: ADM IN Study: Chest 1 View (Portable) Date of Exam: 01/28/18 Exam# [id number] Ordering Dr: Stephen Lay MD STUDY: X-RAY [...] Angel Kyle MD at 8:55 EDT Tel [phone], Service support , CC: Stephen Lay MD; Momo Carvajal MD Print Traffic Manager: Signed Observed: 01/27/2018 Status: F Source: ROBINSON CULTURE, SPUTUM 3:10 PM [facility] REPOSITORY Gram Stain Acceptable Specimen? Yes (<25 Epithelial cells per/lpf) Centrifuged Specimen? N/A Gram Stain 2+ White Blood Cells 1+ Epithelial cells 1+ Gram positive cocci Rare Gram positive rods Rare Gram negative rods Resp. Culture Mixed normal respiratory yesika. No Haemophilus, Streptococcus pneumoniae, beta-hemolytic Streptococcus or Staphylococcus aureus isolated. Performed By: #### M100.0800 #### [facility] [address] [place], [place], [address] CBC W/DIFF, AUTOMATED Collected: 01/27/2018 Status: F Source: CHRISTOPHER 4:00 [...] Lymph 1.45 Performed By: #### L100.0100 #### [facility] [address] [place], [address] MAGNESIUM Collected: 01/27/2018 Status: F Source: ROBINSON 4:00 AM [facility] REPOSITORY TYPE CODE TESTS RESULT OUT OF RANGE REFERENCE UNITS LAB L501.5200 1.6-2.6 mg/dL Normal MG 2.2 Result Comment: Please note revised Magnesium reference range effective 2017. Performed By: #### L501.5200 #### [facility] [address] [place], [address] BASIC METABOLIC Collected: 01/27/2018 Status: F Source: ROBINSON PROFILE (BMP) 4:00 AM [facility] GAP 7 Performed By: #### L500.2500 #### [facility] [address] [place], [place], [address] HEMOGLOBIN A1C Collected: 01/27/2018 Status: F Source: ROBINSON 4:00 AM [facility] REPOSITORY TYPE CODE TESTS RESULT OUT OF RANGE REFERENCE UNITS LAB L501.9985 4.2-6.3 % Normal HGB A1C 5.6 Performed By: #### L501.9985 #### [facility] [address] [place], [address] HISTORY AND PHYSICAL Observed: 01/27/2018 Status: F Source: ROBINSON EXAM 3:52 AM [facility] REPOSITORY [facility] Medical Records Department [address] [place] [address] History and Physical 01/27/18 0149 MR#: [id number] Acct: [id number] Name: ABRAN SAENZ Rep #: [id number] : 1940 77 From: Indu Herr PCP: Wei PRYOR,Momo Pfeiffer Status: ADM IN Y Location: ICU [id number] Problem List (1) HTN (hypertension) Status: Chronic [...] kidney s/p nephrectomy who presents to the [facility] ED on 01/27/18 w/ ongoing fever, chills, [...] youth. Psychiatric History: No pertinent psych hx COUNTER MOLDER History: No pertinent COUNTER MOLDER history Lives: Spouse/ Significant Other Smoking Status: [...] kidney s/p nephrectomy who presents to the [facility] ED on 01/27/18 w/ ongoing fever, chills, [...] lovenox. Code Visit Inpatient E AND M: 71124 Init Hosp L3 01/27/18 0352 <Electronically signed by Indu Herr > Date Indu Herr Cosigner Signature: Date (if applicable) CC: Indu Herr; Momo Carvajal MD Signed EMERGENCY DEPARTMENT Observed: 01/27/2018 Status: F Source: ROBINSON SUMMARY 2:00 AM [facility] REPOSITORY [facility] Medical Records Department [address] [place] [address] Emergency Department Summary 01/26/182119 MR#: [id number] Acct: [id number] Name: ABRAN SAENZ Rep #: [id number] : 1940 77 From: Anna Quintanilla MD [...] pneumonia, hypoxia This note was generated with Dragon dictation software. It may contain incorrect words, [...] your Primary Care Provider. Call [facility] ([phone]) or report to the closest Emergency Room. Call 911 if necessary. 01/27/18 0200 <Electronically signed by Anna Quintanilla MD> Date Anna Quintanilla MD Cosigner Signature (If Indicated): Date CC: Momo Carvajal MD CTA CHEST W/WO Observed: 01/26/2018 Status: F Source: CHRISTOPHER CONTRAST 11:19 PM [facility] REPOSITORY [facility] Imaging Services [address] [place] [address] CTA Chest W/WO Contrast MR#: [id number] Acct: [id number] Name: ABRAN SAENZ Rep #: [id number] : 1940 F 77 From: Bonnie Torres MD PCP: Momo Carvajal MD, Chi Status: REG ER Study: CTA Chest W/WO Contrast Date of Exam: 01/26/18 Exam# [id number] Ordering Dr: Anna Quintanilla MD STUDY: CTA [...] CC: Anna Quintanilla MD; Momo Carvajal MD Print Traffic Manager: Signed Observed: 01/26/2018 Status: F Source: CHRISTOPHER CULTURE, BLOOD (WB) 10:15 PM [facility] REPOSITORY BC No growth in 5 days. Performed By: #### M200.1000 #### [facility] [place], [address] CBC W/DIFF, AUTOMATED Collected: 01/26/2018 Status: F Source: ROBINSON 9:45 PM [facility] REPOSITORY [...] Lymph 1.52 Performed By: #### L100.0100 #### [facility] [address] [place], [address] BASIC METABOLIC Collected: 01/26/2018 Status: F Source: ROBINSON PROFILE ([facility]) 9:45 PM [facility] REPOSITORY [...] 9 Performed By: #### L500.2500, L501.4010 #### [facility] [address] [facility] [address] [place], [place], [address] TROPONIN-I Collected: 01/26/2018 Status: F Source: ROBINSON 9:45 PM [facility] REPOSITORY Order Comment: 'TROP' Serial specimen #1, #2, #3, or #4: 1 TYPE CODE TESTS RESULT OUT OF RANGE REFERENCE UNITS LAB L501.4010 <0.06 ng/mL Normal < 0.02 TROPONIN-I Result Comment: TROPONIN-I EXPECTED VALUES <0.05 NEGATIVE 0.06 - 0.59 AT RISK OF MA > OR = 0.60 SUGGEST MA Performed By: #### L500.2500, L501.4010 #### [facility] [address] [place], [place], [address] LACTIC ACID Collected: 01/26/2018 Status: F Source: ROBINSON 9:45 PM [facility] REPOSITORY Order Comment: Yes/No query for Sepsis Lactate Rule Y TYPE CODE TESTS RESULT OUT OF RANGE REFERENCE UNITS LAB L503.6005 0.4-2.0 mmol/L Normal LACTIC ACID 1.1 Performed By: #### L503.6005 #### [facility] [address] [place], [address] BNP,B-TYPE NATRIURETIC Collected: 01/26/2018 Status: F Source: CHRISTOPHER PEPTIDE 9:45 PM [facility] REPOSITORY TYPE CODE TESTS RESULT OUT OF RANGE REFERENCE UNITS LAB L503.6620 0-100 pg/mL High B-TYPE 118.1 THOMAS PEP Performed By: #### L503.6620 #### [facility] [address] [place], [place], [address] Observed: 01/26/2018 Status: F Source: CHRISTOPHER CULTURE, BLOOD (WB) 9:45 PM [facility] REPOSITORY BC No growth in 5 days. Performed By: #### M200.1000 #### [facility] [address] [place], [place], [address] Observed: 01/26/2018 Status: F Source: CHRISTOPHER INFLUENZA A+B (RAPID 9:24 PM [facility]) REPOSITORY Has pt arrived? Y FLU A/B Rapid Negative test results should be confirmed by culture. Order Rapid Viral Culture for Influenzae A+B (247021) if clinically indicated. Influenza Ag, Direct Presumptive NEGATIVE for Influenza A/B Antigen (See Note) Performed By: #### M101.0101 #### [facility] [address] [place], [place], [address] Observed: 01/26/2018 Status: F Source: CHRISTOPHER RESPIRATORY [...] acid amplification Performed By: #### M100.638 #### [facility] [address] [place], [place], [address] CHEST 1 VIEW Observed: 01/26/2018 Status: F Source: CHRISTOPHER (PORTABLE) 9:20 PM [facility] Imaging Services [address] [place] [address] Chest 1 View (Portable) MR#: [id number] Acct: [id number] Name: ABRAN SAENZ Rep #: [id number] : 1940 F 77 From: Vincent Hidalgo PCP: Wei PRYOR,Momo Pfeiffer Status: REG ER Study: Chest 1 View (Portable) Date of Exam: 01/26/18 Exam# [id number] Ordering Dr: Anna Quintanilla MD STUDY: X-RAY [...] CC: Anna Quintanilla MD; Momo Carvajal MD Print Traffic Manager: Signed URINALYSIS, ROUTINE Collected: 01/26/2018 Status: F [...] ESTERASE 500 Performed By: #### L400.2010 #### [facility] [address] [facility] [place], [place], [address] Observed: 01/26/2018 Status: F Source: ROBINSON LEGIONELLA ANTIGEN 9:15 PM [facility]INE REPOSITORY Legionella, UR Legionella Antigen result interpretation: Negative Presumptive negative for Legionella pneumophila serogroup 1 antigen in urine, suggesting no recent or current infection. Legionella Ag, Urine Negative (See interpretation below) Performed By: #### M300.4500 #### [facility] [address] [facility] [place], [place], [address] STREP Observed: 01/26/2018 Status: F Source: CHRISTOPHER PNEUMONIAE ANTIG(UR,CSF) 9:15 PM [facility] [...] interpretation below) Performed By: #### M300.4600 #### [facility] [address] [facility] [place], [place], [address] PROGRESS Observed: 01/26/2018 Status: COMPLETED Source: CASNOVIA 2:35 PM [facility] RE[facility] HNO ID: [id number] Author: Loida Seaman Service: (none) Author Type: [...] treatment. CNOV Observed: 01/26/2018 Status: COMPLETED Source: CASN[place] 2:30 PM [facility] REPOSITORY Office Visit (UCWSTR) ABRAN SAENZ ([id number]) 1940 F Date Time Provider Department 01/26/18 [...] SEVERITY SOURCE 12/03/2018 Drug No Known Unknown [facility] Allergy/416 Allergies/F0019 Hospital 075863(SNOM 98886(RXNORM) Repository ED CT) 11/07/2012 DRUG MORPHINE Mental Chg [facility] INGREDI/419 [facility] 877690(SNOM Repository ED CT) ENCOUNTERS ENCOUNTERS ADMIT/DISCHARGE ACCOUNT ADMITTING ENCOUNTER LOCATION SOURCE NUMBER CLASS 12/09/2018 [id number] Ambulatory [facility] ing:LAB Repository 12/04/2018 [id number] Ambulatory [facility] ing:LAB Repository 12/03/2018/12/03/19 [id number] Emergency [address] ing:ED Repository 11/26/2018 [id number] Ambulatory [facility] ing:POLAB3 Repository 11/14/2018 [id number] Ambulatory [facility] ing:OLS.[facility] Repository C 11/07/2018 [id number] Ambulatory [facility] ing:OLS.[facility] Repository C 11/03/2018/11/03/20 [id number] Emergency [address] ing:ED Repository 10/26/2018/10/31/20 [id number] Mike Rushing Inpatient [facility] 18 [facility] ing:PCURoom: Repository [id number]: 1 10/26/2018 [id number] Mike Rushing Ambulatory BMSBuilding:B Christopher [place].[facility] Repository 10/26/2018 [id number] Mike Rushing Ambulatory BMSBuilding:Tara [place] Repository 10/26/2018 [id number] Mike Rushing Ambulatory BMSBuilding:[place]ara [place] Repository 10/26/2018 [id number] Mike Rushing Ambulatory BMSBuilding:[place]ara [place] Repository 10/26/2018 [id number] Kristan Mike Ambulatory BMSBuilding:[place]ara [place] Repository 10/26/2018 [id number] Kristan [facility] Ambulatory BMSBuilding:[place] Repository 10/26/2018/10/31/20 [id number] Ambulatory BMSBuilding:W Christopher 18 [facility] Repository 10/26/2018/10/31/20 [id number] Ambulatory BMSBuilding:W Mulino 18 [facility] Repository 10/22/2018 [id number] Ambulatory [facility] ing:POLAB3 Repository 04/22/2018 [id number] Ambulatory [facility] ing:POLAB3 Repository 01/29/2018/02/03/20 [id number] Christaeletssara, Inpatient [facility] 18 Catrachito Encounter [facility] ing:PCURoom: Repository [id number]: [id number] 01/29/2018 [id number] Christaeletssara, Ambulatory BMSBuilding:Tara [place] Repository 01/29/2018 [id number] Christaeletssara, Ambulatory BMSBuilding:Tara [place] Repository 01/29/2018 [id number] Christaeletsky, Ambulatory BMSBuilding:Tara Winston [place] Repository 01/29/2018 [id number] Christaeletsky, Ambulatory BMSBuilding:Tara Winston [place] Repository 01/29/2018/02/03/20 [id number] Ambulatory BMSBuilding:W Christopher 18 [facility] Repository 01/27/2018/01/29/20 [id number] Indu Herr Inpatient [facility] 18 Encounter [facility] ing:ICURoom: Repository [id number]: [id number] 01/27/2018 [id number] Indu Herr Ambulatory BMSBuilding:Tara White [place].[facility] Repository 01/27/2018 [id number] Indu Herr Ambulatory BMSBuilding:W [facility] Repository 01/27/2018 [id number] CarmenzaIndu Ambulatory BMSBuilding:B Mulino [place].[facility] Repository 01/27/2018 [id number] CarmenzaIndu Ambulatory BMSBuilding:B [place].WIP [facility] Repository 01/27/2018/01/29/20 [id number] Ambulatory BMSBuilding:W Mulino 18 [facility] Repository 01/26/2018/01/27/20 [id number] Ambulatory [address] Repository PAYERS PAYERS ENCOUNTER GUARANTOR PAYER SUBSCRIBER SOURCE 12/09/2018 ABRAN L Primary ABRAN L Mulino [id number] Insurance:MEDICARE [facility] BPolicy Number: [id number], [place] [id number] Repository 96342Rdv: (330) Date:2018-12-09 [phone] () 12/09/2018 Secondary ABRAN L Christopher Insurance:HUMANA PERRYDOB[facility] [id number] Hospital Number: Repository [id number] Date:5288-73-77WQ [address] [place] [address]TW: 12/09/2018 Tertiary NOT GIVENUNK Christopher Insurance:SELF PAY [facility] Hospital Number: Effective Repository Date:2018-12-09 12/04/2018 SEBAS Swenson Primary ABRAN L Mulino [id number] Insurance:MEDICARE PERRYDOB: [facility] PART A BPolicy Number: [id number], [place] [id number] Repository 05693Cax: (330) Date:2018-12-04 [phone] () 12/04/2018 Secondary ABRAN L Mulino Insurance:HUMANA PERRYDOB: [facility] [id number] Hospital Number: Repository [id number] Date:5687-11-88AJ [address] [place] [address]TJ: 12/04/2018 Tertiary NOT GIVENUNK Christopher Insurance:SELF PAY [facility] Hospital Number: Effective Repository Date:2018-12-04 12/03/2018 SEBAS J Primary ABRAN L Mulino [id number] Insurance:MEDICARE PERRYDOB: [facility] [place] PART A BPolicy Number: [id number], [place] [id number] Repository 91507Fnq: (169) Date:2018-12-03 [phone] () 12/03/2018 Secondary ABRAN L Mulino Insurance:HUMANA PERRYDOB: Community COMMERCIALPolicy [id number] Hospital Number: Repository [id number] Date:0676-86-26WJ [address] [address]AN: 12/03/2018 Tertiary NOT GIVENUNK Mulino Insurance:SELF PAY [facility] Number: Effective Repository Date:2018-12-03 11/26/2018 SEBAS Swenson Primary ABRAN L Christopher [id number] Insurance:MEDICARE PERRYDOB: Community [place] PART A BPolicy Number: [id number], [place] [id number] Repository 54166Ydy: (651) Date:2018-11-26 [phone] () 11/26/2018 Secondary ABRAN L Mulino Insurance:HUMANA PERRYDOB: [facility] [id number] Hospital Number: Repository [id number] Date:4071-71-62RO [address] [address]BB: 11/26/2018 Tertiary NOT GIVENUNK Mulino Insurance:SELF PAY [facility] Number: Effective Repository Date:2018-11-26 11/14/2018 SEBAS Swenson Primary Insurance:SELF NOT GIVENUNK Christopher [id number] [facility] [place] [place] [facility] Number: Effective [place] Date:2018-11-14 Repository 87787Vox: () 11/07/2018 SEBAS Swenson Primary Insurance:SELF NOT GIVENUNK Mulino [id number] [facility] Number[facility] Effective [place] Date:2018-11-07 Repository 69801Kiz: () 11/03/2018 SEBAS Swenson Primary ABRAN L Christopher [id number] Insurance:MEDICARE PERRYDOB: Community [place] PART A BPolicy Number: [id number], [place] [id number] Repository 85589Oie: (066) Date:2018-11-03 [phone] () 11/03/2018 Secondary ABRAN L Christopher Insurance:HUMANA PERRYDOB: Community COMMERCIALPolicy [id number] Hospital Number: Repository [id number] Date:7516-01-60LY [address] [place] [address]OK: 11/03/2018 Tertiary NOT GIVENUNK Mulino Insurance:SELF PAY [facility] Hospital Number: Effective Repository Date:2018-11-03 10/26/2018 SEBAS J Primary ABRAN L Mulino [id number] Insurance:MEDICARE PERRYDOB: [facility] [place] PART A BPolicy Number: [id number], [place] [id number] Repository 63370Jpl: (739) Date:2018-10-25 [phone] () 10/26/2018 Secondary ABRAN L Christopher Insurance:HUMANA PERRYDOB: [facility] [id number] Hospital Number: Repository [id number] Date:4049-83-46XF [address] [place] [address]AL: 10/26/2018 Tertiary NOT GIVENUNK Mulino Insurance:SELF PAY [facility] Hospital Number: Effective Repository Date:2018-10-25 10/26/2018 Sebas J Primary ABRAN L Christopher [id number] Insurance:MEDICARE PERRYDOB: Community [place] PART A BPolicy Number: [id number] [id number] Repository 17666Ihj: (461) Date:2018-10-25 [phone] () 10/26/2018 Secondary ABRAN L Mulino Insurance:HUMANA PERRYDOB: Community COMMERCIALPolicy [id number] Hospital Number: Repository [id number] Date:6653-48-06HC [address] [place] [address]RB: 10/26/2018 Tertiary NOT GIVENUNK Christopher Insurance:SELF PAY [facility] Number: Effective Repository Date:2018-10-26 10/26/2018 Sebas J Primary ABRAN L Christopher [id number] Insurance:MEDICARE PERRYDOB: Community [place] PART A BPolicy Number: [id number], [place] [id number] Repository 91093Exb: (921) Date:2018-10-25 [phone] () 10/26/2018 Secondary ABRAN L Christopher Insurance:HUMANA PERRYDOB: Community COMMERCIALPolicy [id number] Hospital Number: Repository [id number] Date:0243-55-12HF[address] [address]RA: 10/26/2018 Tertiary NOT GIVENUNK Christopher Insurance:SELF PAY [facility] Number: Effective Repository Date:2018-10-26 10/26/2018 SEBAS J Primary ABRAN L Christopher [id number] Insurance:MEDICARE PERRYDOB: Community [place] PART A BPolicy Number: [id number], [place] [id number] Repository 66662Nzw: (528) Date:2018-10-25 [phone] () 10/26/2018 Secondary ABRAN L Mulino Insurance:HUMANA PERRYDOB: Community COMMERCIALPolicy [id number] Hospital Number: Repository [id number] Date:5806-30-82OU [address] [place] [address]OT: 10/26/2018 Tertiary NOT GIVENUNK Christopher Insurance:SELF PAY [facility] Hospital Number: Effective Repository Date:2018-10-26 10/26/2018 SEBAS J Primary ABRAN L Christopher [id number] Insurance:MEDICARE PERRYDOB: Community [place] PART A BPolicy Number: [id number], [place] [id number] Repository 34343Gpn: (084) Date:2018-10-25 [phone] () 10/26/2018 Secondary ABRAN L Christopher Insurance:HUMANA PERRYDOB: Community COMMERCIALPolicy [id number] Hospital Number: Repository [id number] Date:5824-24-58OU [address] [place] [address]RR: 10/26/2018 Tertiary NOT GIVENUNK Mulino Insurance:SELF PAY [facility] Hospital Number: Effective Repository Date:2018-10-26 10/26/2018 SEBAS J Primary ABRAN L Christopher [id number] Insurance:MEDICARE PERRYDOB: Community [place] PART A BPolicy Number: [id number], [place] [id number] Repository 76114Nyz: 330) Date:2018-10-25 [phone] () 10/26/2018 Secondary ABRAN L Christopher Insurance:HUMANA PERRYDOB: [facility] COMMERCIALPolicy [id number] Hospital Number: Repository [id number] Date:4923-22-11CE [address] [place] [address]SD: 10/26/2018 Tertiary NOT GIVENUNK Christopher Insurance:SELF PAY [facility] Hospital Number: Effective Repository Date:2018-10-26 10/26/2018 SEBAS J Primary ABRAN L Mulino [id number] Insurance:MEDICARE PERRYDOB: Community [place] PART A BPolicy Number: [id number], [place] [id number] Repository 83111Ytt: (610) Date:2018-10-25 [phone] () 10/26/2018 Secondary ABRAN L Christopher Insurance:HUMANA PERRYDOB: Community COMMERCIALPolicy [id number] Hospital Number: Repository [id number] Date:5291-08-46UE [address] [place] [address]UQ: 10/26/2018 Tertiary NOT GIVENUNK Mulino Insurance:SELF PAY [facility] Number: Effective Repository Date:2018-10-26 10/26/2018 SEBAS Swenson Primary ABRAN L Mulino [id number] Insurance:MEDICARE PERRYDOB: Community [place] PART A BPolicy Number: [id number], [place] [id number] Repository 35142Tlj: (330) Date:2018-10-25 [phone] () 10/26/2018 Secondary ABRAN L Mulino Insurance:HUMANA PERRYDOB: Community COMMERCIALPolicy [id number] Hospital Number: Repository [id number] Date:2042-96-54AY[address] [address]IN: 10/26/2018 Tertiary NOT GIVENUNK Mulino Insurance:SELF PAY [facility] Hospital Number: Effective Repository Date:2018-10-26 10/26/2018 SEBAS Swenson Primary ABRAN L Mulino [id number] Insurance:MEDICARE PERRYDOB: Community [place] PART A BPolicy Number: [id number], [place] [id number] Repository 94472Xmj: (330) Date:2018-10-25 [phone] () 10/26/2018 Secondary ABRAN L Christopher Insurance:HUMANA PERRYDOB: [facility] [id number] Hospital Number: Repository [id number] Date:8580-58-91VU[address] [address]MU: 10/26/2018 Tertiary NOT GIVENUNK Christopher Insurance:SELF PAY [facility] Hospital Number: Effective Repository Date:2018-10-26 10/22/2018 Sebas Swenson Primary ABRAN L Christopher [id number] Insurance:MEDICARE PERRYDOB: Community [place] PART A BPolicy Number: [id number], [place] [id number] Repository 72289Osy: (330) Date:2018-10-22 [phone] () 10/22/2018 Secondary ABRAN L Mulino Insurance:HUMANA PERRYDOB: Community COMMERCIALPolicy [id number] Hospital Number: Repository [id number] Date:4236-69-37UY[address] [address]LC: 10/22/2018 Tertiary NOT GIVENUNK Mulino Insurance:SELF PAY [facility] Hospital Number: Effective Repository Date:2018-10-22 04/22/2018 Sebas Swenson Primary ABRAN L Christopher [id number] Insurance:MEDICARE PERRYDOB: Community [place] PART A BPolicy Number: [id number], [place] [id number] Repository 43547Npv: 330) Date:2018-04-22 [phone] () 04/22/2018 Secondary ABRAN L Mulino Insurance:HUMANA PERRYDOB: Community COMMERCIALPolicy [id number] Hospital Number: Repository [id number] Date:5300-12-71AQ [address] [address]YW: 04/22/2018 Tertiary NOT GIVENUNK Mulino Insurance:SELF PAY [facility] Hospital Number: Effective Repository Date:2018-04-22 01/29/2018 Sebas Swenson Primary ABRAN L Mulino [id number] Insurance:MEDICARE PERRYDOB: Community [place] PART A BPolicy Number: [id number], [place] [id number] Repository 45889Vaq: 330) Date:2018-01-29 [phone] () 01/29/2018 Secondary ABRAN L Christopher Insurance:HUMANA PERRYDOB: Community COMMERCIALPolicy [id number] Hospital Number: Repository [id number] Date:4992-98-96OS[address] [address]LW: 01/29/2018 Tertiary NOT GIVENUNK Mulino Insurance:SELF PAY [facility] Hospital Number: Effective Repository Date:2018-01-29 01/29/2018 Sebas Swenson Primary ABRAN L Christopher [id number] Insurance:MEDICARE PERRYDOB: Community [place] PART A olicy Number: [id number], [place] [id number] Repository 99613Szq: 330) Date:2018-01-29 [phone] () 01/29/2018 Secondary ABRAN L Christopher Insurance:HUMANA PERRYDOB: Community COMMERCIALPolicy [id number] Hospital Number: Repository [id number] Date:9040-35-20XY [address] [address]BO: 01/29/2018 Tertiary NOT GIVENUNK Mulino Insurance:SELF PAY [facility] Hospital Number: Effective Repository Date:2018-01-29 01/29/2018 Sebas Swenson Primary ABRAN L Christopher [id number] Insurance:MEDICARE PERRYDOB: Community [place] PART A BPolicy Number: [id number], [place] [id number] Repository 71422Ttm: 330) Date:2018-01-29 [phone] () 01/29/2018 Secondary ABRAN L Mulino Insurance:HUMANA PERRYDOB: [facility] COMMERCIALPolicy [id number] Hospital Number: Repository [id number] Date:8174-88-10TW[address] [address]VP: 01/29/2018 Tertiary NOT GIVENUNK Christopher Insurance:SELF PAY [facility] Hospital Number: Effective Repository Date:2018-01-29 01/29/2018 Sebas J Primary ABRAN L Christopher [id number] Insurance:MEDICARE PERRYDOB: Community [place] PART A BPolicy Number: [id number], [place] [id number] Repository 74156Hbo: 330) Date:2018-01-29 [phone] () 01/29/2018 Secondary ABRAN L Christopher Insurance:HUMANA PERRYDOB: Community COMMERCIALPolicy [id number] Hospital Number: Repository [id number] Date:5684-97-39NV [address] [address]AT: 01/29/2018 Tertiary NOT GIVENUNK Christopher Insurance:SELF PAY [facility] Hospital Number: Effective Repository Date:2018-01-29 01/29/2018 Sebas Swenson Primary ABRAN L Christopher [id number] Insurance:MEDICARE PERRYDOB: Community [place] PART A BPolicy Number: [id number], [place] [id number] Repository 30397Gyk: (942) Date:2018-01-29 [phone] () 01/29/2018 Secondary ABRAN L Mulino Insurance:HUMANA PERRYDOB: Community COMMERCIALPolicy [id number] Hospital Number: Repository [id number] Date:1497-64-21FF [address] [address]NU: 01/29/2018 Tertiary NOT GIVENUNK Mulino Insurance:SELF PAY [facility] Hospital Number: Effective Repository Date:2018-01-29 01/29/2018 Sebas Swenson Primary ABRAN L Christopher [id number] Insurance:MEDICARE PERRYDOB: Community [place] PART A BPolicy Number: [id number], [place] [id number] Repository 95520Alt: (605) Date:2018-01-29 [phone] () 01/29/2018 Secondary ABRAN L Mulino Insurance:HUMANA PERRYDOB: [facility] [id number] Hospital Number: Repository [id number] Date:4573-14-65SJ [address] [address]TQ: 01/29/2018 Tertiary NOT GIVENUNK Christopher Insurance:SELF PAY [facility] Hospital Number: Effective Repository Date:2018-01-29 01/27/2018 Sebas Swenson Primary ABRAN L Christopher [id number] Insurance:MEDICARE PERRYDOB: Community [place] PART A BPolicy Number: [id number], [place] [id number] Repository 63130Igb: (068) Date:2018-01-26 [phone] (HP) 01/27/2018 Secondary ABRAN L Mulino Insurance:HUMANA PERRYDOB: Community COMMERCIALPolicy [id number] Hospital Number: Repository [id number] Date:5266-63-20RK[address] [address]KV: 01/27/2018 Tertiary NOT GIVENUNK Mulino Insurance:SELF PAY [facility] Hospital Number: Effective Repository Date:2018-01-26 01/27/2018 Sebas Swenson Primary ABRAN L Mulino [id number] Insurance:MEDICARE PERRYDOB: Community [place] PART A BPolicy Number: [id number], [place] [id number] Repository 16283Vaj: 330) Date:2018-01-26 [phone] () 01/27/2018 Secondary ABRAN L Christopher Insurance:HUMANA PERRYDOB: [facility] [id number] Hospital Number: Repository [id number] Date:6332-96-89AS[address] [address]DL: 01/27/2018 Tertiary NOT GIVENUNK Christopher Insurance:SELF PAY [facility] Hospital Number: Effective Repository Date:2018-01-27 01/27/2018 Sebas Swenson Primary ABRAN L Mulino [id number] Insurance:MEDICARE PERRYDOB: Community [place] PART A BPolicy Number: [id number], [place] [id number] Repository 21891Pnq: 330) Date:2018-01-26 [phone] () 01/27/2018 Secondary ABRAN L Mulino Insurance:HUMANA PERRYDOB: Community COMMERCIALPolicy [id number] Hospital Number: Repository [id number] Date:5995-21-27YO[address] [address]JE: 01/27/2018 Tertiary NOT GIVENUNK Christopher Insurance:SELF PAY [facility] Hospital Number: Effective Repository Date:2018-01-27 01/27/2018 Sebas Swenson Primary ABRAN L Christopher [id number] Insurance:MEDICARE PERRYDOB: Community [place] PART A BPolicy Number: [id number], [place] [id number] Repository 59079Ayd: 330) Date:2018-01-26 [phone] () 01/27/2018 Secondary ABRAN L Mulino Insurance:HUMANA PERRYDOB: [facility] [id number] Hospital Number: Repository [id number] Date:7622-12-42LK [address] [place] [address]SF: 01/27/2018 Tertiary NOT GIVENUNK Mulino Insurance:SELF PAY [facility] Hospital Number: Effective Repository Date:2018-01-27 01/27/2018 Sebas Swenson Primary ABRAN L Christopher [id number] Insurance:MEDICARE PERRYDOB: Community [place] PART A BPolicy Number: [id number], [place] [id number] Repository 49542Xsg: 330) Date:2018-01-26 [phone] () 01/27/2018 Secondary ABRAN L Mulino Insurance:HUMANA PERRYDOB: [facility] [id number] Hospital Number: Repository [id number] Date:2186-68-85FX[address] [address]HF: 01/27/2018 Tertiary NOT GIVENUNK Mulino Insurance:SELF PAY [facility] Hospital Number: Effective Repository Date:2018-01-27 01/27/2018 Sebas Swenson Primary ABRAN L Christopher [id number] Insurance:MEDICARE PERRYDOB: Community [place] PART A BPolicy Number: [id number], [place] [id number] Repository 83694Hlp: 330) Date:2018-01-26 [phone] () 01/27/2018 Secondary ABRAN L Mulino Insurance:HUMANA PERRYDOB: [facility] [id number] Hospital Number: Repository [id number] Date:9243-57-87QG [address] [place] [address]GS: 01/27/2018 Tertiary NOT GIVENUNK Christopher Insurance:SELF PAY [facility] Effective Repository Date:2018-01-27
== END 2018-12-03 16:50 | disposition home or self-care (01) ==
PROVIDERS: Emergency Provider Emergency Medicine; Family Provider Family Medicine Geriatric Medicine; PCP Family Medicine Geriatric Medicine
DX: R06.00 Dyspnea, unspecified (principal); E86.0 Dehydration; E87.1 Hypo-osmolality and hyponatremia; E87.5 Hyperkalemia; D64.9 Anemia, unspecified; Q60.0 Renal agenesis, unilateral; M79.89 Other specified soft tissue disorders; I44.0 Atrioventricular block, first degree; Z99.81 Dependence on supplemental oxygen
CPT/HCPCS: 71046; 80048; 81001; 83880; 84484; 85025; 93005; 93971; 99285; P9612

== ENCOUNTER → 2018-12-04 17:27 | Outpatient (CLI) | payer MEDICARE, OTHER, SELFPAY ==
[2018-12-03 12:20] VITALS: BMI 42.1
== END ==
PROVIDERS: Family Provider Family Medicine Geriatric Medicine; PCP Family Medicine Geriatric Medicine; Referring Provider Family Medicine Geriatric Medicine; Visit Provider Family Medicine Geriatric Medicine
DX: I50.33 Acute on chronic diastolic (congestive) heart failure (principal)

== ENCOUNTER → 2018-12-09 08:20 | Outpatient (CLI) | payer MEDICARE, OTHER, SELFPAY ==
[2018-12-03 12:20] VITALS: BMI 42.1
[2018-12-09 11:36] LABS: Anion Gap 6 (5-15); BUN 22 mg/dL (7-18); BUN/Creat Ratio 47.2 RATIO (10-20); Chloride 93 mmol/L (98-107); Creatinine, Serum 0.47 mg/dL (0.55-1.02); EST Glomerular Filtration Rate 138 mL/min (>60); Est Glom Filt Rate - Afr Amer 167 mL/min (>60); Glucose 89 mg/dL (74-106); Potassium 4.7 mmol/L (3.5-5.1); Sodium Level 139 mmol/L (136-145)
== END ==
PROVIDERS: Family Provider Family Medicine Geriatric Medicine; PCP Family Medicine Geriatric Medicine; Visit Provider Family Medicine Geriatric Medicine
DX: I50.33 Acute on chronic diastolic (congestive) heart failure (principal)
CPT/HCPCS: 36415; 80048

== ENCOUNTER 2019-03-22 14:57 | Inpatient (IN) | payer MEDICARE, OTHER, SELFPAY ==
[2019-03-22] VITALS (12 sets, daily range): BP systolic 117–162; BP diastolic 54–108; PULSE 67–88; RESP 16–23; TEMP 36.4–37.1; O2SAT 93–99; BMI 43.8; BMI 37.1
--- NOTE | 2019-03-22 15:37 | RAD_ITS ---
STUDY: X-RAY CHEST REASON FOR EXAM: Female, 78 years old. Shortness of breath. TECHNIQUE: Single frontal view of the chest. COMPARISON: December 03, 2018. FINDINGS: There are stable prominent interstitial markings. There is a hazy opacity within the right mid and lower lung. There is cardiomegaly. There is stable perihilar fullness. Normal visualized aortic arch and descending thoracic aorta. Normal visualized thoracic spine. Normal visualized ribs, clavicles, and shoulders. There is no demonstrated abnormality of the visualized soft tissue structures of the upper abdomen. RAD/Chest 1 View (Portable) IMPRESSION: Cardiomegaly. Hazy opacity within the right mid and lower lung suggestive of an underlying effusion. Possible pulmonary venous congestion. Electronically Signed: Michaela Moreira MD at 16:05 EDT Tel , Service support ,
--- NOTE | 2019-03-22 15:37 | CT_ITS ---
STUDY: CT ABDOMEN AND PELVIS WITH CONTRAST REASON FOR EXAM: Female, 78 years old. Epigastric pain. RADIATION DOSAGE (If Supplied By Facility): CTDIvol = ( 17.07 ) mGy, DLP = ( 1098.22 ) mGycm TECHNIQUE: Transaxial images were obtained from the dome of the diaphragm to the symphysis pubis without oral contrast. 75CC IV/Oral Isovue 300 was administered. Sagittal and coronal images were reconstructed. Individualized dose optimization techniques were used for this CT. COMPARISON: CTA of the chest dated January 26, 2018 FINDINGS: The visualized lung bases are unremarkable. There is a grossly stable pericardial effusion. Normal liver. Normal gallbladder and extrahepatic biliary system. Normal spleen. Normal pancreas. Normal bilateral adrenal glands. 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 There are nonobstructing left renal calculi measuring up to 4.2 mm. There appears to be a extrarenal pelvis. The stomach is filled with contrast and is prominent. There are dilated loops of the small intestine with a non-distended colon consistent with a small bowel obstruction. Normal colon. There is non-visualization of the appendix. There is diffuse atherosclerotic calcification of the abdominal aorta, without a demonstrated aneurysm. Normal inferior vena cava. Normal retroperitoneum. Normal urinary bladder. Normal abdominal wall. There are diffuse degenerative changes of the visualized lumbar spine. There is a grade 1 anterior spondylolisthesis of L4 on L5. CT/Abdomen/Pelvis WITH Contrast IMPRESSION: Small bowel obstruction. Atherosclerosis. Degenerative changes. Grade 1 anterior spondylolisthesis of L4 on L5. Electronically Signed: Michaela Moreira MD at 18:36 EDT Tel , Service support ,
--- NOTE | 2019-03-22 15:37 | EKG12_ITS ---
Test Reason : ABD PAIN Blood Pressure : / mmHG Vent. Rate : 067 BPM Atrial Rate : 067 BPM P-R Int : 176 ms QRS Dur : 080 ms QT Int : 400 ms P-R-T Axes : 027 -15 064 degrees QTc Int : 422 ms Normal sinus rhythm Low voltage QRS Borderline ECG Confirmed by JASON PRYOR, BREANA ([id number]), purchase request editor ROSANA NIETO ([id number]) on 03/25/2019 1:40:31 PM Referred By: Jayden Bond Confirmed By:BREANA GOMEZ MD
--- NOTE | 2019-03-22 15:42 | ED.DCSUM_ITS ---
- ER Visit Summary Date of Service: 03/22/19 Chief Complaint: Abdominal pain History of Present Illness: The patient is a 78 F presenting with abdominal pain. She states this started a few hours ago while she was at [employer]. She complains of mid abdominal pain associated with nausea. She had one episode of vomiting on arrival to the ED. She denies diarrhea or constipation. Denies urinary complaints. Denies fever. She denies chest pain or shortness of breath. Denies other complaints. Physical Examination: Vitals are stable. Patient is afebrile. Alert no acute distress. HEENT exam is unremarkable. Neck is supple. Lungs are clear and equal bilaterally. Heart is regular rate and rhythm. Abdomen is soft epigastric and diffuse abdominal tenderness, no rebound or guarding Extremities are unremarkable. Skin is warm and dry. Remainder of exam is unremarkable. Emergency Department Course and Treatment: Patient given morphine, Zofran IV. EKG is sinus rate of 67 with no acute ischemic changes. Chest x-ray shows Cardiomegaly. Hazy opacity within the right mid and lower lung suggestive of an underlying effusion. Possible pulmonary venous congestion. CBC shows white count 18.0. Chemistries show glucose 133, BUN 26, creatinine 0.48. Alk phos 123, lipase is normal. Troponin is negative. Gallbladder ultrasound shows nonvisualization of the pancreas secondary to overlying bowel gas. CT abdomen pelvis shows small bowel obstruction. NG tube was ordered. Discussed with Dr. Strickland and Dr. Herr. Patient will be admitted. Disposition: Admission Impression: Small bowel obstruction This note was generated with [employer] dictation software. It may contain incorrect words, spelling, and punctuation that were not noted in review of the chart prior to signing ED Disposition - Plan for ED Patient: Referrals: Momo Carvajal Chi, MD [Primary Care Provider] -
[2019-03-22] MEDS: Ondansetron 4 MG/2 ML Vial IV ×2 (15:56→20:12)
[2019-03-22 16:41] LABS: Absolute Lymphocyte Count 0.95 X10^3/ul (0.83-4.51); Absolute Neutrophil Count 16.4 X10^3/uL (2.0-7.7); Basophil# 0.03 X10^3/uL; Basophil% 0.2 % (0-1); Eosinophil# 0.02 X10^3/uL; Eosinophils% 0.1 % (0-5); Hematocrit 38.3 % (37-47); Hemoglobin 12.8 g/dl (12.0-15.0); Lymphocyte # 0.95 X10^3/ul (4.0); Lymphocyte % 5.3 % (19-41); Mean Corp Hgb Conc 33.4 g/gl (32-36); Mean Corpuscular Hgb 30.5 pg (27.0-32.0); Mean Corpuscular Volume 91.4 fL (81-99); Mean Platelet Vol. 10.5 fl (6.2-12.0); Monocyte# 0.59 X10^3/uL; Monocyte% 3.3 % (0-10); Neutrophil # 16.39 X10^3/uL (2.7-7.7); Neutrophil % 90.8 % (47-70); POSITIVE COUNT NO; POSITIVE DIFFERENTIAL NO; POSITIVE MORPHOLOGY NO; Platelet Count 415 K/mm3 (150-450); RBC Distribution Width CV 13.5 % (11.6-14.6); RBC Distribution Width SD 44.4 fl (35.1-43.9); Red Blood Count 4.19 M/mm3 (4.2-5.4)
[2019-03-22 16:58] LABS: AST(SGOT) 19 U/L (15-37); Alanine Aminotransfer ALT/SGPT 19 U/L (13-56); Albumin, Serum 3.7 g/dL (3.2-5.0); Alkaline Phosphatase 123 U/L (45-117); Anion Gap 11 (5-15); BUN 26 mg/dL (7-18); BUN/Creat Ratio 53.8 RATIO (10-20); Bilirubin, Direct 0.15 mg/dL (0.00-0.30); Calcium,Total 9.7 mg/dL (8.5-10.1); Chloride 100 mmol/L (98-107); Creatinine, Serum 0.48 mg/dL (0.55-1.02); EST Glomerular Filtration Rate 133 mL/min (>60); Est Glom Filt Rate - Afr Amer 160 mL/min (>60); Estimated Creatinine Clearance 71.85 ml/min; Glucose 133 mg/dL (74-106); Lipase 178 U/L (73-393); Potassium 4.6 mmol/L (3.5-5.1); Protein, Total 6.7 g/dL (6.4-8.2); Sodium Level 138 mmol/L (136-145)
[2019-03-22 17:07] LABS: Bacteria 0 SEEN /hpf (None Seen); Mucous, Urine 0 SEEN /hpf (<or=2+); Red Blood Cells-Urine 0 SEEN /hpf (0-5); Squamous Epithelial Cells - UA 0 SEEN /hpf (5-10); White Blood Cells 0 SEEN /hpf (0-5)
[2019-03-22 17:11] LABS: Color, Urine Yellow (Yellow); Glucose, Dipstick Normal (Normal); Ketone-Dipstick 50 mg/dl (Negative); Leukocyte Esterase-Dipstick Negative /ul (Negative); Nitrite-Dipstick Negative (Negative); Occult Blood-Urine Negative /ul (Negative); Protein-Dipstick Negative (Negative); Urine Bilirubin Dipstick Negative (Negative); Urine Clarity Clear (Clear); Urine Urobilinogen Normal (Normal)
[2019-03-22 17:21] LABS: Hyaline Cast 0-5 SEEN /lpf (0-5)
--- NOTE | 2019-03-22 17:23 | US_ITS ---
STUDY: ABDOMINAL ULTRASOUND - RIGHT UPPER QUADRANT REASON FOR VISIT: Female, 78 years old. Epigastric pain. TECHNIQUE: Ultrasound evaluation of the right upper quadrant was performed with real-time and static marinelli-scale imaging. TECHNICAL QUALITY: Adequate. COMPARISON: CT dated March 22, 2019 FINDINGS: Liver: The liver measures 10.4 cm. There is normal echogenicity of the liver. The bile ducts are within normal limits. There is hepatic color flow. The direction of portal flow is hepatopetal. There is no demonstrated mass lesion. Gallbladder: Normal distended gallbladder. The gallbladder wall measures 2.8 mm. There is a negative sonographic Smith's sign. There is no pericholecystic fluid. There are no gallstones. Common Bile Duct (C.B.D.): The common bile duct measures 4.5 mm. Pancreas: There is nonvisualization of the pancreas secondary to overlying bowel gas. Right Kidney: The right kidney is surgically absent. US/Gallbladder IMPRESSION: Nonvisualization of the pancreas secondary to overlying bowel gas. Electronically Signed: Michaela Moreira MD at 19:39 EDT Tel , Service support ,
[2019-03-22] MEDS: Morphine 2 MG/ML Syringe IV (20:00)
[2019-03-22] MEDS: Lidocaine 4% 5 ML Ampul 2 ML INHALATION (20:12)
--- NOTE | 2019-03-22 20:23 | HP.PCM_ITS ---
Problem List (1) SBO (small bowel obstruction) Status: Acute (2) Diastolic CHF Status: Chronic Qualifiers: Heart failure chronicity: chronic Qualified Code(s): I50.32 - Chronic diastolic (congestive) heart failure (3) HTN (hypertension) Status: Chronic Qualifiers: Hypertension type: essential hypertension Qualified Code(s): I10 - Essential (primary) hypertension (4) HLD (hyperlipidemia) Status: Chronic Qualifiers: Hyperlipidemia type: unspecified Qualified Code(s): E78.5 - Hyperlipidemia, unspecified (5) Arthrogryposis Status: Chronic (6) Single kidney Status: Chronic (7) Hypoxia Status: Chronic (8) Morbid obesity with BMI of 40.0-44.9, adult Status: Chronic History of Present Illness Date of Admission: 03/22/19 Chief Complaint: Abdominal pain The patient is a 78 y/o F w/ PMHx: HTN, HLD, Morbid Obesity, Chronic COPD, Chronic Diastolic CHF, Arthrogryposis w/ usage of BL LE braces and several BL UE and BL LE surgeries in her youth, Chronic Hypoxic Respiratory Failure, Single kidney s/p nephrectomy w/ CKD stage III who presents to the [facility] ED on 03/22/19 with history of ongoing severe, sharp, cramping, 10 out of 10, > BL upper quadrant as well as epigastric abdominal pain with notable bloated sensation, distention with nausea and emesis x 1 starting at yazidi on day of ED presentation. Work-up in the ED included T 98.1, heart rate 78, BP 157/84, respiratory rate 22, 94% on room air, CBC with WBC 18, hemoglobin 12.8, platelet 415 with left shift, CMP with BUN/creatinine 26/0.48, alkaline phosphatase 123, lipase 170, troponin less than 0.015, UA unremarkable, chest x-ray with cardiomegaly with hazy opacity within the right mid and lower lung suggestive of an effusion with possible pulmonary venous congestion, gallbladder ultrasound with nonvisualization of the pancreas secondary to overlying bowel gas, CT abdomen pelvis with small bowel obstruction, atherosclerosis, degenerative changes, grade 1 anterior spondylolisthesis of L4 on L5 with unremarkable visualized lung bases and a grossly stable pericardial effusion. In the ED patient administered Zofran, morphine 2 mg IV x1 as well as morphine 4 mg IV x1 in addition the lidocaine for NG placement. General surgery consulted per ED. Past Medical History Past Medical History (Chronic Problems): Chronic Problems HTN (hypertension) (Chronic) HLD (hyperlipidemia) (Chronic) Arthrogryposis (Chronic) Single kidney (Chronic) Hypoxia (Chronic) Morbid obesity with BMI of 40.0-44.9, adult (Chronic) Diastolic CHF (Chronic) Allergies No Known Allergies Allergy (Verified 03/22/19 14:57) Home Medications: Ambulatory Orders Medication Instructions Recorded Aspirin [Aspirin, Baby] 81 mg PO DAILY@0800 07/12/15 Atorvastatin Calcium [Lipitor] 80 mg PO QHS 07/12/15 Calcium Carb/Vitamin D 1 tab PO DAILY 07/12/15 [Caltrate-600 With Vit D Tab] Lisinopril [Zestril] 5 mg PO DAILY 07/12/15 Dibucaine [Nupercainal] 56.7 gm RC 4X/DAY PRN PRN #1 09/28/15 oint...g. Albuterol Inhaler [Ventolin Hfa] 2 puff INHALATION Q4H PRN PRN #1 10/31/18 inhaler Furosemide 40 mg PO BID 03/22/19 L.acidoph,Paracasei, B.lactis 1 each PO DAILY 03/22/19 [Probiotic] Potassium Chloride 20 meq PO BID 03/22/19 Surgical History: - - R Nephrectomy, Minor Surgey on the L Kidney, notable BL UE and LE corrective surgeries in her youth. 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 Denies: Chills, Fever, Weight Change HEENT: Denies: Head Aches, Sinus Congestion, Sinus Drainage Cardiovascular: Denies: Chest Pain, Palpitations Respiratory: Denies: Cough, Shortness of breath at rest, Sputum production Gastrointestinal: Reports: Abdominal Pain, Nausea, Vomiting Genitourinary: Denies: Dysuria Musculoskeletal: Reports: Back Pain, Joint Pain. Denies: Joint Tenderness Skin: Denies: Rash, Wounds Neurological: Reports: Balance problems. Denies: Focal weakness, Numbness, Tingling Psychiatric: Denies: Anxiety, Depression, Homicidal Ideations, Suicidal Ideations Hematologic/ Lymphatic: Denies: Easy Bruising, Easy Bleeding VTE Information - Inpt Only VTE Present on Admission: No VTE Mechan Device Prophylaxis: SCD's VTE Pharm Prophylaxis ordered?: Yes Patient Problems: Active and Suspected Problems SBO (small bowel obstruction) (Acute) Subjective: Seated upright in ED bed, fatigued, uncomfortable, status post NG tube placement but not hooked up yet. Objective: Physical Examination: General: awake, alert, oriented x 3 and cooperative, seated upright in the ED bed, fatigued, ongoing abdominal distention and discomfort, NG tube recently placed but pending connection awaiting KUB results. Skin: normal color, turgor, no icterus, cyanosis. HEENT: AT/NC, EOMI, PERRLA, dry MM, NG tube in place, not yet hooked up to suction, no carotid bruits or JVD noted. Lungs: Diminished BS BL, > bases, moderate effort, no rales, rhonchi or wheezing. Heart: Regular rate with regular rhythm; no gallop, rub audible. Abdomen: soft, morbidly obese, diffuse although greater bilateral upper quadrants and epigastric discomfort with palpation, distention, absent bowel sounds, no HSM however difficult examination given habitus and severity of distention. Extremities: no cyanosis, clubbing, BL LE and UE congenital deformities, s/p several surgical interventions. Neurological: patient awake, alert, oriented x 3; cognitive function intact; pupils equally reactive to light and accomodation; cranial nerves II-XII grossly normal, moving BL LE, severe limitations BL UE with severe BL LE and UE deformities, strength severely globally decreased secondary to acute presentation. Psychiatric: affect appears fatigued, no acute evidence of depressive or anxiety feelings. - Physical Exam Vital Signs Temp Pulse Resp BP Pulse Ox 97.6 F L 77 16 153/108 H 96 03/22/19 20:00 03/22/19 20:00 03/22/19 20:00 03/22/19 20:00 03/22/19 20:00 Oxygen Flow Rate (L/min) 2 Oxygen Delivery Method Nasal Cannula Weight: 209 lb 10.554 oz Body Mass Index (BMI) 43.8 Laboratory Tests Past 24 Hrs 03/22/19 03/22/1919 16:05 16:25 16:25 WBC 18.0 H RBC 4.19 L Hgb 12.8 Hct 38.3 MCV 91.4 MCH 30.5 MCHC 33.4 RDW 13.5 RDW Differential 44.4 H Plt Count 415 MPV 10.5 Immature Gran % (Auto) 0.300 Neut % (Auto) 90.8 H Lymph % (Auto) 5.3 L [place] % (Auto) 3.3 Eos % (Auto) 0.1 Baso % (Auto) 0.2 Absolute Neuts (auto) 16.4 H Absolute Lymphs (auto) 0.95 Total Counted Not Reportable Sodium 138 Potassium 4.6 Chloride 100 Carbon Dioxide 27.0 Anion Gap 11 BUN 26 H Creatinine 0.48 L Estim Creat Clear Calc 71.85 Est GFR (MDRD) Af Amer 160 Est GFR (MDRD) Non-Af 133 BUN/Creatinine Ratio 53.8 H Glucose 133 H Calcium 9.7 Total Bilirubin 0.70 Direct Bilirubin 0.15 AST 19 ALT 19 Alkaline Phosphatase 123 H Troponin I < 0.015 Total Protein 6.7 Albumin 3.7 Globulin 3.0 Lipase 178 Urine Color Yellow Urine Clarity Clear Urine pH 5.0 Ur Specific [place] 1.010 Urine Protein Negative Urine Glucose (UA) Normal Urine Ketones 50 H Urine Occult Blood Negative Urine Nitrite Negative Urine Bilirubin Negative Urine Urobilinogen Normal Ur Leukocyte Esterase Negative Urine RBC 0 SEEN Urine WBC 0 SEEN Ur Squamous Epith Cells 0 SEEN Urine Bacteria 0 SEEN Hyaline Casts 0-5 SEEN Urine Mucus 0 SEEN Assessment/Plan All Active Problems Pneumonia (Acute) Sepsis (Acute) Shortness of breath (Acute) Acute congestive heart failure (Acute) SBO (small bowel obstruction) (Acute) The patient is a 78 y/o F w/ PMHx: HTN, HLD, Morbid Obesity, Chronic COPD, Chronic Diastolic CHF, Arthrogryposis w/ usage of BL LE braces and several BL UE and BL LE surgeries in her youth, Chronic Hypoxic Respiratory Failure, Single kidney s/p nephrectomy w/ CKD stage III who presents to the [facility] ED on 03/22/19 with history of ongoing severe, sharp, cramping, 10 out of 10, > BL upper quadrant as well as epigastric abdominal pain with notable bloated sensation, d istention with nausea and emesis x 1 starting at yazidi on day of ED presentation. (1) Abdominal pain, nausea, emesis w/ SBO w/ Leukocytosis: Work-up in the ED included T 98.1, heart rate 78, BP 157/84, respiratory rate 22, 94% on room air, CBC with WBC 18, hemoglobin 12.8, platelet 415 with left shift, CMP with BUN/creatinine 26/0.48, alkaline phosphatase 123, lipase 170, troponin less than 0.015, UA unremarkable, chest x-ray with cardiomegaly with hazy opacity within the right mid and lower lung suggestive of an effusion with possible pulmonary venous congestion, gallbladder ultrasound with nonvisualization of the pancreas secondary to overlying bowel gas, CT abdomen pelvis with small bowel obstruction, atherosclerosis, degenerative changes, grade 1 anterior spondylolisthesis of L4 on L5 with unremarkable visualized lung bases and a grossly stable pericardial effusion. Will admit to [facility], maintain on IVFs with close monitoring given CHF history as noted, trend CBC given elevation, afebrile however, continue NGT to suction, strict I&Os, IV pain/anti-emetics PRN, serial KUB as needed to montior bowel function, PPI IV, maintain NPO on bowel rest. General surgery consulted, pending. (2) Chronic Diastolic CHF: Holding oral regimen, once clinically resolved, gently hydrating given #1, restart home aspirin, statin, Lasix, lisinopril regimen. Not on BB from current regimen. (3) Hypertension: Holding oral regimen given acute presentation w/ NPO status, PRN hydralazine. (4) Hyperlipidemia: Holding home statin regimen. (5) Single kidney Status s/p Prior R Nephrectomy w/ CKD stage III: Admission BUN/Cr 126/0.48, trend, noted history of surgery on her L kidney as well. (6) Arthrogryposis: Usage of BL LE braces and several BL UE and BL LE surgeries in her youth, maintain on fall precautions, position changes frequently, PT and OT, CM consultations for discharge planning. (7) Morbid Obesity: Weight loss and lifestyle changes encouraged, nutrition consulted. (8) Chronic COPD: ATC duonebs, PRN albuterol, HOB, IS parameters. (9) Hyperglycemia: Admission glucose 133, likely stress response, last HgbA1c 01/2018 5.6%. (10) DVT Prophylaxis: SCDs, lovenox. Code Visit Inpatient E&M: 68138 Init Hosp L3
--- NOTE | 2019-03-22 20:52 | RAD_ITS ---
STUDY: X-RAY - ABDOMEN/PELVIS REASON FOR EXAM: Female, 78 years old. Nasogastric tube placement. TECHNIQUE : single portable AP image of the abdomen COMPARISON: March 22, 2019 at 3:42 PM. FINDINGS: There are stable prominent interstitial markings. There is cardiomegaly. There is a nasogastric tube in place terminating within the gastric fundus. There is a moderate amount of gas within a distended stomach. There is no demonstrated free abdominal air. The visualized liver, spleen and kidneys are grossly normal in size and morphology. Normal soft tissue structures. Normal visualized osseous structures. RAD/Abdomen Single View (Portable) IMPRESSION: Gas-filled distended stomach cannot exclude underlying gastric outlet obstruction. Nasogastric tube in a satisfactory position. Cardiomegaly. Possible pulmonary edema. Electronically Signed: Michaela Moreira MD at 21:11 EDT Tel , Service support ,
--- NOTE | 2019-03-22 21:30 | PCM.CONS.GEN ---
Reason for Consult Date of Consultation: 03/22/19 History of Present Illness: The patient is a 78 year old F presented to the ER due to epigastric pain. Patient's stated began during spiritism about 1030 this morning. She did have some nausea denies any vomiting states she has not passed any gas today did have a small harder bowel movement this morning. Patient does describe sharp pain in her epigastric region. Patient denies ever having a history of bowel obstruction in the past. Previous surgeries are and a right nephrectomy patient states for infection. Patient CT abdomen pelvis did show dilated stomach as well as proximal small bowel with decompressed distal bowel. Patient did have an NG placed in 600 cc was removed immediately which was a clear/light green color. Patient does have a white blood cell count of 18, patient's chest x-ray did show some haziness in the right mid and lower lobe possible effusion. Past Medical History Past Medical History (Chronic Problems): Chronic Problems HTN (hypertension) (Chronic) HLD (hyperlipidemia) (Chronic) Arthrogryposis (Chronic) Single kidney (Chronic) Hypoxia (Chronic) Morbid obesity with BMI of 40.0-44.9, adult (Chronic) Diastolic CHF (Chronic) Allergies No Known Allergies Allergy (Verified 03/22/19 14:57) Home Medications: Ambulatory Orders Medication Instructions Recorded Aspirin [Aspirin, Baby] 81 mg PO DAILY@0800 07/12/15 Atorvastatin Calcium [Lipitor] 80 mg PO QHS 07/12/15 Calcium Carb/Vitamin D 1 tab PO DAILY 07/12/15 [Caltrate-600 With Vit D Tab] Lisinopril [Zestril] 5 mg PO DAILY 07/12/15 Dibucaine [Nupercainal] 56.7 gm RC 4X/DAY PRN PRN #1 09/28/15 oint...g. Albuterol Inhaler [Ventolin Hfa] 2 puff INHALATION Q4H PRN PRN #1 10/31/18 inhaler Furosemide 40 mg PO BID 03/22/19 L.acidoph,Paracasei, B.lactis 1 each PO DAILY 03/22/19 [Probiotic] Potassium Chloride 20 meq PO BID 03/22/19 Surgical History: - - R Nephrectomy, Minor Surgey on the L Kidney, notable BL UE and LE corrective surgeries in her youth. Psychiatric History: No pertinent psych hx LEGAL ADVISER History: No pertinent LEGAL ADVISER history Lives: Spouse/ Significant Other Smoking Status: Never smoker Tobacco Use: Non-smoker Alcohol: None Drugs: None - *Family History Maternal History Items: Heart Disease Paternal History Items: Heart Disease Review of Systems Constitutional: Reports: Anorexia. Denies: Fever Eyes: Denies: Blurred vision HEENT: Denies: Difficulty Swallowing Cardiovascular: Denies: Chest Pain Respiratory: Reports: Cough Gastrointestinal: Reports: Abdominal Pain, Nausea. Denies: Vomiting Genitourinary: Denies: Dysuria Skin: Denies: Rash Neurological: Denies: Confusion Psychiatric: Denies: Depression Hematologic/ Lymphatic: Denies: Easy Bruising Patient Problems: Active and Suspected Problems SBO (small bowel obstruction) (Acute) - Physical Exam General: Alert, Oriented x3, Cooperative, No apparent distress HEENT: Atraumatic, - - NG in place Lungs: Normal air movement Cardiovascular: Regular rate Abdomen: Soft, Distended - Moderate, Obese, Tender - Epigastric, right and left upper quadrant, no peritoneal signs Extremities: No cyanosis, No edema Skin: No rashes Neurological: Cranial nerves II-XII grossly intact Psych/Mental Status: Normal Affect Vital Signs Temp Pulse Resp BP Pulse Ox 98.8 F 86 20 H 123/56 H 96 03/22/19 21:08 03/22/19 21:08 03/22/19 21:08 03/22/19 21:08 03/22/19 21:08 Oxygen Flow Rate (L/min) 2 Oxygen Delivery Method Nasal Cannula Weight: 209 lb 10.554 oz Body Mass Index (BMI) 43.8 Laboratory Tests Past 24 Hrs 03/22/19 03/22/19 03/22/19 16:05 16:25 16:25 WBC 18.0 H RBC 4.19 L Hgb 12.8 Hct 38.3 MCV 91.4 MCH 30.5 MCHC 33.4 RDW 13.5 RDW Differential 44.4 H Plt Count 415 MPV 10.5 Immature Gran % (Auto) 0.300 Neut % (Auto) 90.8 H Lymph % (Auto) 5.3 L [place] % (Auto) 3.3 Eos % (Auto) 0.1 Baso % (Auto) 0.2 Absolute Neuts (auto) 16.4 H Absolute Lymphs (auto) 0.95 Total Counted Not Reportable Sodium 138 Potassium 4.6 Chloride 100 Carbon Dioxide 27.0 Anion Gap 11 BUN 26 H Creatinine 0.48 L Estim Creat Clear Calc 71.85 Est GFR (MDRD) Af Amer 160 Est GFR (MDRD) Non-Af 133 BUN/Creatinine Ratio 53.8 H Glucose 133 H Calcium 9.7 Total Bilirubin 0.70 Direct Bilirubin 0.15 AST 19 ALT 19 Alkaline Phosphatase 123 H Troponin I < 0.015 Total Protein 6.7 Albumin 3.7 Globulin 3.0 Lipase 178 Urine Color Yellow Urine Clarity Clear Urine pH 5.0 Ur Specific [place] 1.010 Urine Protein Negative Urine Glucose (UA) Normal Urine Ketones 50 H Urine Occult Blood Negative Urine Nitrite Negative Urine Bilirubin Negative Urine Urobilinogen Normal Ur Leukocyte Esterase Negative Urine RBC 0 SEEN Urine WBC 0 SEEN Ur Squamous Epith Cells 0 SEEN Urine Bacteria 0 SEEN Hyaline Casts 0-5 SEEN Urine Mucus 0 SEEN Assessment/Plan All Active Problems Pneumonia (Acute) Sepsis (Acute) Shortness of breath (Acute) Acute congestive heart failure (Acute) SBO (small bowel obstruction) (Acute) 78-year-old female with small bowel obstruction, leukocytosis 1. Keep patient n.p.o. with IV fluids and strict I's and O's, continue NG. We will plan to check a KUB in the morning if she has been adequately decompressed may consider small bowel follow-through with Gastrografin tomorrow. 2. Leukocytosis unsure exact source patient does not have any peritoneal signs on exam did have a mild haziness on chest x-ray in the right middle and lower lobe, will continue to monitor Negin Strickland M.D. Pager: [phone] [facility] [address] [place] [address], [facility], [address] [place] [address] Office: [phone] Code Visit Inpatient E&M: 35858 Init Hosp L2
--- NOTE | 2019-03-22 21:34 | CON.PCM_ITS ---
Reason for Consult Date of Consultation: 03/22/19 History of Present Illness: The patient is a 78 year old F presented to the ER due to epigastric pain. Patient's stated began during scientology about 1030 this morning. She did have some nausea denies any vomiting states she has not passed any gas today did have a small harder bowel movement this morning. Patient does describe sharp pain in her epigastric region. Patient denies ever having a history of bowel obstruction in the past. Previous surgeries are and a right nephrectomy patient states for infection. Patient CT abdomen pelvis did show dilated stomach as well as proximal small bowel with decompressed distal bowel. Patient did have an NG placed in 600 cc was removed immediately which was a clear/light green color. Patient does have a white blood cell count of 18, patient's chest x-ray did show some haziness in the right mid and lower lobe possible effusion. Past Medical History Past Medical History (Chronic Problems): Chronic Problems HTN (hypertension) (Chronic) HLD (hyperlipidemia) (Chronic) Arthrogryposis (Chronic) Single kidney (Chronic) Hypoxia (Chronic) Morbid obesity with BMI of 40.0-44.9, adult (Chronic) Diastolic CHF (Chronic) Allergies No Known Allergies Allergy (Verified 03/22/19 14:57) Home Medications: Ambulatory Orders Medication Instructions Recorded Aspirin [Aspirin, Baby] 81 mg PO DAILY@0800 07/12/15 Atorvastatin Calcium [Lipitor] 80 mg PO QHS 07/12/15 Calcium Carb/Vitamin D 1 tab PO DAILY 07/12/15 [Caltrate-600 With Vit D Tab] Lisinopril [Zestril] 5 mg PO DAILY 07/12/15 Dibucaine [Nupercainal] 56.7 gm RC 4X/DAY PRN PRN #1 09/28/15 oint...g. Albuterol Inhaler [Ventolin Hfa] 2 puff INHALATION Q4H PRN PRN #1 10/31/18 inhaler Furosemide 40 mg PO BID 03/22/19 L.acidoph,Paracasei, B.lactis 1 each PO DAILY 03/22/19 [Probiotic] Potassium Chloride 20 meq PO BID 03/22/19 Surgical History: - - R Nephrectomy, Minor Surgey on the L Kidney, notable BL UE and LE corrective surgeries in her youth. 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 Denies: Fever Eyes: Denies: Blurred vision HEENT: Denies: Difficulty Swallowing Cardiovascular: Denies: Chest Pain Respiratory: Reports: Cough Gastrointestinal: Reports: Abdominal Pain, Nausea. Denies: Vomiting Genitourinary: Denies: Dysuria Skin: Denies: Rash Neurological: Denies: Confusion Psychiatric: Denies: Depression Hematologic/ Lymphatic: Denies: Easy Bruising Patient Problems: Active and Suspected Problems SBO (small bowel obstruction) (Acute) - Physical Exam General: Alert, Oriented x3, Cooperative, No apparent distress HEENT: Atraumatic, - - NG in place Lungs: Normal air movement Cardiovascular: Regular rate Abdomen: Soft, Distended - Moderate, Obese, Tender - Epigastric, right and left upper quadrant, no peritoneal signs Extremities: No cyanosis, No edema Skin: No rashes Neurological: Cranial nerves II-XII grossly intact Psych/Mental Status: Normal Affect Vital Signs Temp Pulse Resp BP Pulse Ox 98.8 F 86 20 H 123/56 H 96 03/22/19 21:08 03/22/19 21:08 03/22/19 21:08 03/22/19 21:08 03/22/19 21:08 Oxygen Flow Rate (L/min) 2 Oxygen Delivery Method Nasal Cannula Weight: 209 lb 10.554 oz Body Mass Index (BMI) 43.8 Laboratory Tests Past 24 Hrs 03/22/19 03/22/19 03/22/19 16:05 16:25 16:25 WBC 18.0 H RBC 4.19 L Hgb 12.8 Hct 38.3 MCV 91.4 MCH 30.5 MCHC 33.4 RDW 13.5 RDW Differential 44.4 H Plt Count 415 MPV 10.5 Immature Gran % (Auto) 0.300 Neut % (Auto) 90.8 H Lymph % (Auto) 5.3 L [place] % (Auto) 3.3 Eos % (Auto) 0.1 Baso % (Auto) 0.2 Absolute Neuts (auto) 16.4 H Absolute Lymphs (auto) 0.95 Total Counted Not Reportable Sodium 138 Potassium 4.6 Chloride 100 Carbon Dioxide 27.0 Anion Gap 11 BUN 26 H Creatinine 0.48 L Estim Creat Clear Calc 71.85 Est GFR (MDRD) Af Amer 160 Est GFR (MDRD) Non-Af 133 BUN/Creatinine Ratio 53.8 H Glucose 133 H Calcium 9.7 Total Bilirubin 0.70 Direct Bilirubin 0.15 AST 19 ALT 19 Alkaline Phosphatase 123 H Troponin I < 0.015 Total Protein 6.7 Albumin 3.7 Globulin 3.0 Lipase 178 Urine Color Yellow Urine Clarity Clear Urine pH 5.0 Ur Specific [place] 1.010 Urine Protein Negative Urine Glucose (UA) Normal Urine Ketones 50 H Urine Occult Blood Negative Urine Nitrite Negative Urine Bilirubin Negative Urine Urobilinogen Normal Ur Leukocyte Esterase Negative Urine RBC 0 SEEN Urine WBC 0 SEEN Ur Squamous Epith Cells 0 SEEN Urine Bacteria 0 SEEN Hyaline Casts 0-5 SEEN Urine Mucus 0 SEEN Assessment/Plan All Active Problems Pneumonia (Acute) Sepsis (Acute) Shortness of breath (Acute) Acute congestive heart failure (Acute) SBO (small bowel obstruction) (Acute) 78-year-old female with small bowel obstruction, leukocytosis 1. Keep patient n.p.o. with IV fluids and strict I's and O's, continue NG. We will plan to check a KUB in the morning if she has been adequately decompressed may consider small bowel follow-through with Gastrografin tomorrow. 2. Leukocytosis unsure exact source patient does not have any peritoneal signs on exam did have a mild haziness on chest x-ray in the right middle and lower lobe, will continue to monitor Negin Strickland M.D. Pager: [phone] [facility] [address] [place] [address], [facility], [address] [place] [address] Office: [phone] Code Visit Inpatient E&M: 69532 Init Hosp L2
[2019-03-22] MEDS: 0.9% Normal Saline 1,000 ML 75 ML IV (22:11)
[2019-03-22] MEDS: 0.9% NaCl Peripheral Flush Adult/Peds IV (22:12)
[2019-03-23] VITALS (8 sets, daily range): BP systolic 112–162; BP diastolic 32–76; PULSE 86–112; RESP 16–20; TEMP 36.6–37.1; O2SAT 88–98
[2019-03-23] MEDS: BENZOCAINE/MENTHOL 1 LOZENGE MUCOUS MEM ×2 (02:43→22:58)
[2019-03-23] MEDS: Morphine 2 MG/ML Syringe IV ×3 (04:07→15:37)
--- NOTE | 2019-03-23 05:55 | RAD_ITS ---
STUDY: X-RAY - ABDOMEN/PELVIS REASON FOR EXAM: Female, 78 years old. Small bowel obstruction. TECHNIQUE: Single AP view of the abdomen / pelvis. COMPARISON: Comparison is made with prior examination dated March 22, 2019. FINDINGS: A nasogastric tube is seen. The tip is in the distal portion of the stomach. The stomach is not dilated at this time. The gas pattern is unremarkable. The visualized liver, spleen and kidneys are grossly normal in size and morphology. There are calcified phleboliths in the pelvis. Contrast is seen within the urinary bladder from prior CT scan. There are diffuse degenerative changes of the visualized lumbar spine. RAD/Abdomen Single View (Portable) IMPRESSION: Tip of the nasogastric tube is in the distal portion of the stomach. The stomach is not distended at this time. Electronically Signed: Angel Kyle, at 14:43 EDT , Service support ,
[2019-03-23 05:58] LABS: Absolute Lymphocyte Count 0.93 X10^3/ul (0.83-4.51); Absolute Neutrophil Count 9.6 X10^3/uL (2.0-7.7); Basophil# 0.01 X10^3/uL; Basophil% 0.1 % (0-1); Eosinophil# 0.37 X10^3/uL; Eosinophils% 3.1 % (0-5); Hemoglobin 12.2 g/dl (12.0-15.0); Lymphocyte # 0.93 X10^3/ul (4.0); Lymphocyte % 7.9 % (19-41); Mean Corpuscular Hgb 30.6 pg (27.0-32.0); Mean Corpuscular Volume 92.7 fL (81-99); Monocyte# 0.91 X10^3/uL; Monocyte% 7.7 % (0-10); Neutrophil # 9.56 X10^3/uL (2.7-7.7); Neutrophil % 80.9 % (47-70); Platelet Count 289 K/mm3 (150-450); RBC Distribution Width CV 13.7 % (11.6-14.6); RBC Distribution Width SD 45.2 fl (35.1-43.9); Red Blood Count 3.99 M/mm3 (4.2-5.4); White Blood Count 11.8 K/mm3 (4.4-11.0)
[2019-03-23 06:08] LABS: Anion Gap 10 (5-15); BUN 24 mg/dL (7-18); Calcium,Total 8.7 mg/dL (8.5-10.1); Chloride 108 mmol/L (98-107); Creatinine, Serum 1.09 mg/dL (0.55-1.02); EST Glomerular Filtration Rate 52 mL/min (>60); Est Glom Filt Rate - Afr Amer 63 mL/min (>60); Estimated Creatinine Clearance 56.84 ml/min; Glucose 92 mg/dL (74-106); Potassium 4.9 mmol/L (3.5-5.1); Sodium Level 139 mmol/L (136-145)
[2019-03-23 06:43] LABS: POSITIVE COUNT NO; POSITIVE DIFFERENTIAL NO; POSITIVE MORPHOLOGY NO
[2019-03-23] MEDS: Ipratropium/Albuterol Sulfate 3 ML AMPUL.NEB INHALATION ×3 (06:59→18:45)
--- NOTE | 2019-03-23 07:23 | PCM.PN.SRG ---
Patient Problems: Active and Suspected Problems SBO (small bowel obstruction) (Acute) Subjective: Pt states abd pain is a little better, NG only but out about 300 cc over night clear/light green in canister, denies flatus - Physical Exam General: Alert, Oriented x3, Cooperative, No apparent distress Lungs: Normal air movement Cardiovascular: Regular rate Abdomen: Soft, Distended - mild-mod, Tender - LUQ/epigastric, no PS Extremities: No cyanosis, No edema Neurological: Cranial nerves II-XII grossly intact Psych/Mental Status: Normal Affect Vital Signs Temp Pulse Resp BP Pulse Ox 98.1 F 94 18 112/32 L 95 03/23/19 02:16 03/23/19 02:16 03/23/19 02:16 03/23/19 02:16 03/23/19 02:16 Oxygen Flow Rate (L/min) 1 Oxygen Delivery Method Nasal Cannula Weight: 180 lb 12.465 oz Body Mass Index (BMI) 37.1 Intake and Output for Last 24 Hours 03/21/19 03/22/19 03/23/19 23:59 23:59 23:59 Intake Total 1121 / 1121 Output Total 400 / 400 Balance 721 / 721 Laboratory Tests Past 24 Hrs 03/22/19 03/22/19 03/22/19 16:05 16:25 16:25 WBC 18.0 H RBC 4.19 L Hgb 12.8 Hct 38.3 MCV 91.4 MCH 30.5 MCHC 33.4 RDW 13.5 RDW Differential 44.4 H Plt Count 415 MPV 10.5 Immature Gran % (Auto) 0.300 Neut % (Auto) 90.8 H Lymph % (Auto) 5.3 L [place] % (Auto) 3.3 Eos % (Auto) 0.1 Baso % (Auto) 0.2 Absolute Neuts (auto) 16.4 H Absolute Lymphs (auto) 0.95 Total Counted Not Reportable Sodium 138 Potassium 4.6 Chloride 100 Carbon Dioxide 27.0 Anion Gap 11 BUN 26 H Creatinine 0.48 L Estim Creat Clear Calc 71.85 Est GFR (MDRD) Af Amer 160 Est GFR (MDRD) Non-Af 133 BUN/Creatinine Ratio 53.8 H Glucose 133 H Calcium 9.7 Total Bilirubin 0.70 Direct Bilirubin 0.15 AST 19 ALT 19 Alkaline Phosphatase 123 H Troponin I < 0.015 Total Protein 6.7 Albumin 3.7 Globulin 3.0 Lipase 178 Urine Color Yellow Urine Clarity Clear Urine pH 5.0 Ur Specific [place] 1.010 Urine Protein Negative Urine Glucose (UA) Normal Urine Ketones 50 H Urine Occult Blood Negative Urine Nitrite Negative Urine Bilirubin Negative Urine Urobilinogen Normal Ur Leukocyte Esterase Negative Urine RBC 0 SEEN Urine WBC 0 SEEN Ur Squamous Epith Cells 0 SEEN Urine Bacteria 0 SEEN Hyaline Casts 0-5 SEEN Urine Mucus 0 SEEN 03/23/19 03/23/19 05:28 05:28 WBC 11.8 H RBC 3.99 L Hgb 12.2 Hct 37.0 MCV 92.7 MCH 30.6 MCHC 33.0 RDW 13.7 RDW Differential 45.2 H Plt Count 289 MPV 11.0 Immature Gran % (Auto) 0.300 Neut % (Auto) 80.9 H Lymph % (Auto) 7.9 L [place] % (Auto) 7.7 Eos % (Auto) 3.1 Baso % (Auto) 0.1 Absolute Neuts (auto) 9.6 H Absolute Lymphs (auto) 0.93 Total Counted Not Reportable Sodium 139 Potassium 4.9 Chloride 108 H Carbon Dioxide 21.0 Anion Gap 10 BUN 24 H Creatinine 1.09 H Estim Creat Clear Calc 56.84 Est GFR (MDRD) Af Amer 63 Est GFR (MDRD) Non-Af 52 L BUN/Creatinine Ratio 22.0 H Glucose 92 Calcium 8.7 Total Bilirubin Direct Bilirubin AST ALT Alkaline Phosphatase Troponin I Total Protein Albumin Globulin Lipase Urine Color Urine Clarity Urine pH Ur Specific [place] Urine Protein Urine Glucose (UA) Urine Ketones Urine Occult Blood Urine Nitrite Urine Bilirubin Urine Urobilinogen Ur Leukocyte Esterase Urine RBC Urine WBC Ur Squamous Epith Cells Urine Bacteria Hyaline Casts Urine Mucus Medical Necessity - Tobacco Use Smoking Status: Never smoker Tobacco Use: Non-smoker Assessment/Plan All Active Problems Pneumonia (Acute) Sepsis (Acute) Shortness of breath (Acute) Acute congestive heart failure (Acute) SBO (small bowel obstruction) (Acute) 78-year-old female with small bowel obstruction, leukocytosis 1. Keep patient n.p.o. with IV fluids and strict I's and O's, continue NG. KUB does show a decompressed stomach but there are still some dilated SB, will get gastrograffin SBFT. 2. Leukocytosis improved to 11.8 with no abx, unknown etiology Negin Strickland M.D. Pager: [phone] [facility] [address] [place] [address], [facility] [address] [place] [address] Office: [phone]
--- NOTE | 2019-03-23 07:27 | PN.SURG_ITS ---
Patient Problems: Active and Suspected Problems SBO (small bowel obstruction) (Acute) Subjective: Pt states abd pain is a little better, NG only but out about 300 cc over night clear/light green in canister, denies flatus - Physical Exam General: Alert, Oriented x3, Cooperative, No apparent distress Lungs: Normal air movement Cardiovascular: Regular rate Abdomen: Soft, Distended - mild-mod, Tender - LUQ/epigastric, no PS Extremities: No cyanosis, No edema Neurological: Cranial nerves II-XII grossly intact Psych/Mental Status: Normal Affect Vital Signs Temp Pulse Resp BP Pulse Ox 98.1 F 94 18 112/32 L 95 03/23/19 02:16 03/23/19 02:16 03/23/19 02:16 03/23/19 02:16 03/23/19 02:16 Oxygen Flow Rate (L/min) 1 Oxygen Delivery Method Nasal Cannula Weight: 180 lb 12.465 oz Body Mass Index (BMI) 37.1 Intake and Output for Last 24 Hours 03/21/19 03/22/19 03/23/19 23:59 23:59 23:59 Intake Total 1121 / 1121 Output Total 400 / 400 Balance 721 / 721 Laboratory Tests Past 24 Hrs 03/22/19 03/22/19 03/22/19 16:05 16:25 16:25 WBC 18.0 H RBC 4.19 L Hgb 12.8 Hct 38.3 MCV 91.4 MCH 30.5 MCHC 33.4 RDW 13.5 RDW Differential 44.4 H Plt Count 415 MPV 10.5 Immature Gran % (Auto) 0.300 Neut % (Auto) 90.8 H Lymph % (Auto) 5.3 L [place] % (Auto) 3.3 Eos % (Auto) 0.1 Baso % (Auto) 0.2 Absolute Neuts (auto) 16.4 H Absolute Lymphs (auto) 0.95 Total Counted Not Reportable Sodium 138 Potassium 4.6 Chloride 100 Carbon Dioxide 27.0 Anion Gap 11 BUN 26 H Creatinine 0.48 L Estim Creat Clear Calc 71.85 Est GFR (MDRD) Af Amer 160 Est GFR (MDRD) Non-Af 133 BUN/Creatinine Ratio 53.8 H Glucose 133 H Calcium 9.7 Total Bilirubin 0.70 Direct Bilirubin 0.15 AST 19 ALT 19 Alkaline Phosphatase 123 H Troponin I < 0.015 Total Protein 6.7 Albumin 3.7 Globulin 3.0 Lipase 178 Urine Color Yellow Urine Clarity Clear Urine pH 5.0 Ur Specific [place] 1.010 Urine Protein Negative Urine Glucose (UA) Normal Urine Ketones 50 H Urine Occult Blood Negative Urine Nitrite Negative Urine Bilirubin Negative Urine Urobilinogen Normal Ur Leukocyte Esterase Negative Urine RBC 0 SEEN Urine WBC 0 SEEN Ur Squamous Epith Cells 0 SEEN Urine Bacteria 0 SEEN Hyaline Casts 0-5 SEEN Urine Mucus 0 SEEN 03/23/19 03/23/19 05:28 05:28 WBC 11.8 H RBC 3.99 L Hgb 12.2 Hct 37.0 MCV 92.7 MCH 30.6 MCHC 33.0 RDW 13.7 RDW Differential 45.2 H Plt Count 289 MPV 11.0 Immature Gran % (Auto) 0.300 Neut % (Auto) 80.9 H Lymph % (Auto) 7.9 L [place] % (Auto) 7.7 Eos % (Auto) 3.1 Baso % (Auto) 0.1 Absolute Neuts (auto) 9.6 H Absolute Lymphs (auto) 0.93 Total Counted Not Reportable Sodium 139 Potassium 4.9 Chloride 108 H Carbon Dioxide 21.0 Anion Gap 10 BUN 24 H Creatinine 1.09 H Estim Creat Clear Calc 56.84 Est GFR (MDRD) Af Amer 63 Est GFR (MDRD) Non-Af 52 L BUN/Creatinine Ratio 22.0 H Glucose 92 Calcium 8.7 Total Bilirubin Direct Bilirubin AST ALT Alkaline Phosphatase Troponin I Total Protein Albumin Globulin Lipase Urine Color Urine Clarity Urine pH Ur Specific [place] Urine Protein Urine Glucose (UA) Urine Ketones Urine Occult Blood Urine Nitrite Urine Bilirubin Urine Urobilinogen Ur Leukocyte Esterase Urine RBC Urine WBC Ur Squamous Epith Cells Urine Bacteria Hyaline Casts Urine Mucus Medical Necessity - Tobacco Use Smoking Status: Never smoker Tobacco Use: Non-smoker Assessment/Plan All Active Problems Pneumonia (Acute) Sepsis (Acute) Shortness of breath (Acute) Acute congestive heart failure (Acute) SBO (small bowel obstruction) (Acute) 78-year-old female with small bowel obstruction, leukocytosis 1. Keep patient n.p.o. with IV fluids and strict I's and O's, continue NG. KUB does show a decompressed stomach but there are still some dilated SB, will get gastrograffin SBFT. 2. Leukocytosis improved to 11.8 with no abx, unknown etiology Negin Strickland M.D. Pager: [phone] [facility] [address] [place] [address], [facility], [address] [place] [address] Office: [phone]
--- NOTE | 2019-03-23 07:28 | RAD_ITS ---
CLINICAL HISTORY: Female, 78 years old. History of small bowel obstruction. Nausea and vomiting. PROCEDURE: Gastrografin small bowel follow-through examination. TECHNIQUE: (All elements of maximal sterile barrier technique followed, including US elements as applicable) Limited study. The examination was stopped 30 minutes into the study. The patient could not tolerate the Gastrografin. A nasogastric tube is seen with the tip in the distal stomach. There is visualization of the proximal small bowel. The proximal small bowel loops are unremarkable. There is a mild degree of dilated small bowel loops in the left upper and mid abdomen. Gas is seen in the colon. RAD/Small Bowel Series Only IMPRESSION: Limited study. Mild degree of small bowel dilatation in the left upper and mid quadrants. Electronically Signed: Angel Kyle, at 14:29 EDT , Service support ,
--- NOTE | 2019-03-23 09:14 | CASEMGMT ---
Social Work Note Per admissions recruiter questions, pt has completed HCPOA and LW but hasn't provided copies to [facility] but is able to bring in copies. Monalisa Valdez DIRECTOR OF HOTEL, DIRECTOR PROCESS IMPROVEMENT
[2019-03-23] MEDS: Enoxaparin 40 MG/0.4 ML Syringe SC (10:52)
[2019-03-23] MEDS: 0.9% Normal Saline 1,000 ML 75 ML IV (12:41)
--- NOTE | 2019-03-23 14:25 | CASEMGMT ---
RN CM Assessment Presentation: SBO, HTN. IVF, NG. Intro role of CM and purpose of RN CM assessment to patient and her husbnd. Pt is awake, alert and able to participate in assessment. Demographics, PCP and Pharmacy verified. Pt states she wears leg braces, and generally uses wheelchair around home. Hx of arthrogryposis. Pt was scheduled for sleep study tonight with Dr. Dominique. Cancelled due to hospitalization. PCP: Dr. Carvajal Specialists: Dr. Strickland, surgery; Dr. Dominique, Pulmonology Preferred Pharmacy: [facility] Insurance: [facility] Prescription Benefit: yes. States no difficulty with prescription coverage. LNOK: , Sebas Knight Living Arrangements: Pt lives in home with her . States she is independent in ADL, does own sponge baths, does not shower or use tub. is able to assist with any care needs that arise. Pt states she generally uses wheelchair around home and scooter outside for distances. Transportation: drives. DME: wheelchair, electric scooter. Oxygen through [employer]: concentrator only. HHC: none Patient DC goals: Home DC PLAN: Anticipate Home on dc with family support. Ceci ROMO RN ACM
--- NOTE | 2019-03-23 15:39 | PCM.PN.HOSP ---
Patient Problems: Active and Suspected Problems SBO (small bowel obstruction) (Acute) Subjective: Feeling a little bit better today, she does not have any nausea or vomiting with the NG tube in place, she denies any flatus. Abdominal discomfort is improved. Vitals/I&O's: Vital Signs Temp Pulse Resp BP Pulse Ox 98.7 F 95 16 123/76 H 92 03/23/19 14:16 03/23/19 14:16 03/23/19 14:16 03/23/19 14:16 03/23/19 14:16 Oxygen Flow Rate (L/min) 1 Oxygen Delivery Method Room Air Weight: 180 lb 12.465 oz Body Mass Index (BMI) 37.1 Intake and Output for Last 24 Hours 03/21/19 03/22/19 03/23/19 23:59 23:59 23:59 Intake Total 1821 / 1821 Output Total 900 / 900 Balance 921 / 921 General: Alert, Oriented x3, Cooperative, No apparent distress HEENT: Atraumatic, PERRLA, EOMI, Normocephalic Oral: Dry Mucosa Neck: Supple, No JVD Lungs: Clear to auscultation, Normal air movement, No rhonchi, No wheeze, No rales, Diminished Cardiovascular: Regular rate, Regular Rhythm, Normal S1, Normal S2, No murmurs Abdomen: Soft, Non-Distended, No Hepato-splenomegaly, Tender - Mild throughout Extremities: No edema, Capillary Refill Less than 3 Seconds Skin: No rashes, No breakdown Neurological: Neuro grossly intact, Sensory exam intact to light touch and pain Psych/Mental Status: Normal Affect, Appropriate Laboratory Results 03/22/19 16:05: Urine Color Yellow, Urine Clarity Clear, Urine pH 5.0, Ur Specific [place] 1.010, Urine Protein Negative, Urine Glucose (UA) Normal, Urine Ketones 50 H, Urine Occult Blood Negative, Urine Nitrite Negative, Urine Bilirubin Negative, Urine Urobilinogen Normal, Ur Leukocyte Esterase Negative, Urine RBC 0 SEEN, Urine WBC 0 SEEN, Ur Squamous Epith Cells 0 SEEN, Urine Bacteria 0 SEEN, Hyaline Casts 0-5 SEEN, Urine Mucus 0 SEEN 03/22/19 16:25: WBC 18.0 H, RBC 4.19 L, Hgb 12.8, Hct 38.3, MCV 91.4, MCH 30.5, MCHC 33.4, RDW 13.5, RDW Differential 44.4 H, Plt Count 415, MPV 10.5, Immature Gran % (Auto) 0.300, Neut % (Auto) 90.8 H, Lymph % (Auto) 5.3 L, [place] % (Auto) 3.3, Eos % (Auto) 0.1, Baso % (Auto) 0.2, Absolute Neuts (auto) 16.4 H, Absolute Lymphs (auto) 0.95, Total Counted Not Reportable 03/22/19 16:25: Sodium 138, Potassium 4.6, Chloride 100, Carbon Dioxide 27.0, Anion Gap 11, BUN 26 H, Creatinine 0.48 L, Estim Creat Clear Calc 71.85, Est GFR (MDRD) Af Amer 160, Est GFR (MDRD) Non-Af 133, BUN/Creatinine Ratio 53.8 H, Glucose 133 H, Calcium 9.7, Total Bilirubin 0.70, Direct Bilirubin 0.15, AST 19, ALT 19, Alkaline Phosphatase 123 H, Troponin I < 0.015, Total Protein 6.7, Albumin 3.7, Globulin 3.0, Lipase 178 03/23/19 05:28: WBC 11.8 H, RBC 3.99 L, Hgb 12.2, Hct 37.0, MCV 92.7, MCH 30.6, MCHC 33.0, RDW 13.7, RDW Differential 45.2 H, Plt Count 289, MPV 11.0, Immature Gran % (Auto) 0.300, Neut % (Auto) 80.9 H, Lymph % (Auto) 7.9 L, [place] % (Auto) 7.7, Eos % (Auto) 3.1, Baso % (Auto) 0.1, Absolute Neuts (auto) 9.6 H, Absolute Lymphs (auto) 0.93, Total Counted Not Reportable 03/23/19 05:28: Sodium 139, Potassium 4.9, Chloride 108 H, Carbon Dioxide 21.0, Anion Gap 10, BUN 24 H, Creatinine 1.09 H, Estim Creat Clear Calc 56.84, Est GFR (MDRD) Af Amer 63, Est GFR (MDRD) Non-Af 52 L, BUN/Creatinine Ratio 22.0 H, Glucose 92, Calcium 8.7 Current Medications Albuterol Sulfate (Ventolin Aerosols) 2.5 mg INHALATION Q2H PRN PRN PRN Reason: dyspnea, wheezing Albuterol/Ipratropium (Duoneb) 3 ml INHALATION Q6HWA.RT [facility] Last Admin: 03/23/19 13:18 Dose: 3 ml Dextrose (D50w Syringe) 0 gm IV X1 PRN; Protocol PRN Reason: Hypoglycemia Dibucaine (Dibucaine) 1 applic TOPICAL 4X/DAY PRN PRN Reason: ANAL PAIN Enoxaparin Sodium (Lovenox) 40 mg SC DAILY@1000 [facility] Last Admin: 03/23/19 10:52 Dose: 40 mg Glucagon () 1 mg IM .X1 PRN PRN Reason: Hypoglycemia Hydralazine HCl (Apresoline Iv) 10 mg IV Q4H PRN PRN PRN Reason: SBP > 160 Sodium Chloride () 1,000 mls @ 75 mls/hr IV .[id number] [facility] Last Admin: 03/23/19 12:41 Dose: 75 mls/hr Pantoprazole Sodium 40 mg/ (Sodium Chloride) 110 mls @ 330 mls/hr IV Q12 [facility] Last Admin: 03/23/19 10:52 Dose: 330 mls/hr Sodium Chloride () 250 mls @ 15 mls/hr IV .[id number] PRN PRN Reason: SALINE FLUSH Morphine Sulfate () 1 - 2 mg IV Q3H PRN PRN PRN Reason: PAIN Last Admin: 03/23/19 15:37 Dose: 2 mg Ondansetron HCl (Zofran) 4 mg IV Q8H PRN PRN PRN Reason: NAUSEA/VOMITING Sodium Chloride () 5 - 15 ml IV UD PRN PRN Reason: SALINE FLUSH Last Admin: 03/22/19 22:12 Dose: 10 ml Throat Lozenges (Cepacol Sore Throat Lozenge) 1 lozenge MUCOUS MEM Q2H PRN PRN PRN Reason: SORE THROAT Last Admin: 03/23/19 02:43 Dose: 1 lozenge Medical Necessity - Tobacco Use Smoking Status: Never smoker Tobacco Use: Non-smoker Assessment/Plan All Active Problems Pneumonia (Acute) Sepsis (Acute) Shortness of breath (Acute) Acute congestive heart failure (Acute) SBO (small bowel obstruction) (Acute) 1. SBO -Cytosis is improving without any antibiotics -He has improvement with NG tube, n.p.o., IV fluids -We will continue with bowel rest -Appreciate surgical input 2. Chronic diastolic CHF/HTN/HLD -We will be gentle with hydration for her small bowel obstruction based on her diastolic CHF -She can resume her aspirin, statin, lisinopril, and taking p.o. will hold her Lasix while on IV fluids 3. Single kidney status post right nephrectomy with CKD 3 -Admission labs are stable and will continue to monitor 4. Arthrogryposis -She uses bilateral lower extremity braces -We will continue to monitor and consult PT/OT 5. Chronic COPD -Only not in exacerbation, will continue with her home medications -DuoNeb 6. Morbid obesity/hyperglycemia -BMI is 37, did discuss weight loss and lifestyle changes. -Her last A1c from a year ago was 5.6, this blood sugar is likely a stress response and will normalize without therapy DVT: Lovenox Code Visit Inpatient E&M: 04186 Subs Hosp L2
--- NOTE | 2019-03-23 15:49 | PN_ITS ---
Patient Problems: Active and Suspected Problems SBO (small bowel obstruction) (Acute) Subjective: Feeling a little bit better today, she does not have any nausea or vomiting with the NG tube in place, she denies any flatus. Abdominal discomfort is improved. Vitals/I&O's: Vital Signs Temp Pulse Resp BP Pulse Ox 98.7 F 95 16 123/76 H 92 03/23/19 14:16 03/23/19 14:16 03/23/19 14:16 03/23/19 14:16 03/23/19 14:16 Oxygen Flow Rate (L/min) 1 Oxygen Delivery Method Room Air Weight: 180 lb 12.465 oz Body Mass Index (BMI) 37.1 Intake and Output for Last 24 Hours 03/21/19 03/22/19 03/23/19 23:59 23:59 23:59 Intake Total 1821 / 1821 Output Total 900 / 900 Balance 921 / 921 General: Alert, Oriented x3, Cooperative, No apparent distress HEENT: Atraumatic, PERRLA, EOMI, Normocephalic Oral: Dry Mucosa Neck: Supple, No JVD Lungs: Clear to auscultation, Normal air movement, No rhonchi, No wheeze, No rales, Diminished Cardiovascular: Regular rate, Regular Rhythm, Normal S1, Normal S2, No murmurs Abdomen: Soft, Non-Distended, No Hepato-splenomegaly, Tender - Mild throughout Extremities: No edema, Capillary Refill Less than 3 Seconds Skin: No rashes, No breakdown Neurological: Neuro grossly intact, Sensory exam intact to light touch and pain Psych/Mental Status: Normal Affect, Appropriate Laboratory Results 03/22/19 16:05: Urine Color Yellow, Urine Clarity Clear, Urine pH 5.0, Ur Specific [place] 1.010, Urine Protein Negative, Urine Glucose (UA) Normal, Urine Ketones 50 H, Urine Occult Blood Negative, Urine Nitrite Negative, Urine Bilirubin Negative, Urine Urobilinogen Normal, Ur Leukocyte Esterase Negative, Urine RBC 0 SEEN, Urine WBC 0 SEEN, Ur Squamous Epith Cells 0 SEEN, Urine Bacteria 0 SEEN, Hyaline Casts 0-5 SEEN, Urine Mucus 0 SEEN 03/22/19 16:25: WBC 18.0 H, RBC 4.19 L, Hgb 12.8, Hct 38.3, MCV 91.4, MCH 30.5, MCHC 33.4, RDW 13.5, RDW Differential 44.4 H, Plt Count 415, MPV 10.5, Immature Gran % (Auto) 0.300, Neut % (Auto) 90.8 H, Lymph % (Auto) 5.3 L, [place] % (Auto) 3.3, Eos % (Auto) 0.1, Baso % (Auto) 0.2, Absolute Neuts (auto) 16.4 H, Absolute Lymphs (auto) 0.95, Total Counted Not Reportable 03/22/19 16:25: Sodium 138, Potassium 4.6, Chloride 100, Carbon Dioxide 27.0, Anion Gap 11, BUN 26 H, Creatinine 0.48 L, Estim Creat Clear Calc 71.85, Est GFR (MDRD) Af Amer 160, Est GFR (MDRD) Non-Af 133, BUN/Creatinine Ratio 53.8 H, Glucose 133 H, Calcium 9.7, Total Bilirubin 0.70, Direct Bilirubin 0.15, AST 19, ALT 19, Alkaline Phosphatase 123 H, Troponin I < 0.015, Total Protein 6.7, Albumin 3.7, Globulin 3.0, Lipase 178 03/23/19 05:28: WBC 11.8 H, RBC 3.99 L, Hgb 12.2, Hct 37.0, MCV 92.7, MCH 30.6, MCHC 33.0, RDW 13.7, RDW Differential 45.2 H, Plt Count 289, MPV 11.0, Immature Gran % (Auto) 0.300, Neut % (Auto) 80.9 H, Lymph % (Auto) 7.9 L, [place] % (Auto) 7.7, Eos % (Auto) 3.1, Baso % (Auto) 0.1, Absolute Neuts (auto) 9.6 H, Absolute Lymphs (auto) 0.93, Total Counted Not Reportable 03/23/19 05:28: Sodium 139, Potassium 4.9, Chloride 108 H, Carbon Dioxide 21.0, Anion Gap 10, BUN 24 H, Creatinine 1.09 H, Estim Creat Clear Calc 56.84, Est GFR (MDRD) Af Amer 63, Est GFR (MDRD) Non-Af 52 L, BUN/Creatinine Ratio 22.0 H, Glucose 92, Calcium 8.7 Current Medications Albuterol Sulfate (Ventolin Aerosols) 2.5 mg INHALATION Q2H PRN PRN PRN Reason: dyspnea, wheezing Albuterol/Ipratropium (Duoneb) 3 ml INHALATION Q6HWA.RT [facility] Last Admin: 03/23/19 13:18 Dose: 3 ml Dextrose (D50w Syringe) 0 gm IV X1 PRN; Protocol PRN Reason: Hypoglycemia Dibucaine (Dibucaine) 1 applic TOPICAL 4X/DAY PRN PRN Reason: ANAL PAIN Enoxaparin Sodium (Lovenox) 40 mg SC DAILY@1000 [facility] Last Admin: 03/23/19 10:52 Dose: 40 mg Glucagon () 1 mg IM .X1 PRN PRN Reason: Hypoglycemia Hydralazine HCl (Apresoline Iv) 10 mg IV Q4H PRN PRN PRN Reason: SBP > 160 Sodium Chloride () 1,000 mls @ 75 mls/hr IV .[id number] [facility] Last Admin: 03/23/19 12:41 Dose: 75 mls/hr Pantoprazole Sodium 40 mg/ (Sodium Chloride) 110 mls @ 330 mls/hr IV Q12 [facility] Last Admin: 03/23/19 10:52 Dose: 330 mls/hr Sodium Chloride () 250 mls @ 15 mls/hr IV .[id number] PRN PRN Reason: SALINE FLUSH Morphine Sulfate () 1 - 2 mg IV Q3H PRN PRN PRN Reason: PAIN Last Admin: 03/23/19 15:37 Dose: 2 mg Ondansetron HCl (Zofran) 4 mg IV Q8H PRN PRN PRN Reason: NAUSEA/VOMITING Sodium Chloride () 5 - 15 ml IV UD PRN PRN Reason: SALINE FLUSH Last Admin: 03/22/19 22:12 Dose: 10 ml Throat Lozenges (Cepacol Sore Throat Lozenge) 1 lozenge MUCOUS MEM Q2H PRN PRN PRN Reason: SORE THROAT Last Admin: 03/23/19 02:43 Dose: 1 lozenge Medical Necessity - Tobacco Use Smoking Status: Never smoker Tobacco Use: Non-smoker Assessment/Plan All Active Problems Pneumonia (Acute) Sepsis (Acute) Shortness of breath (Acute) Acute congestive heart failure (Acute) SBO (small bowel obstruction) (Acute) 1. SBO -Cytosis is improving without any antibiotics -He has improvement with NG tube, n.p.o., IV fluids -We will continue with bowel rest -Appreciate surgical input 2. Chronic diastolic CHF/HTN/HLD -We will be gentle with hydration for her small bowel obstruction based on her diastolic CHF -She can resume her aspirin, statin, lisinopril, and taking p.o. will hold her Lasix while on IV fluids 3. Single kidney status post right nephrectomy with CKD 3 -Admission labs are stable and will continue to monitor 4. Arthrogryposis -She uses bilateral lower extremity braces -We will continue to monitor and consult PT/OT 5. Chronic COPD -Only not in exacerbation, will continue with her home medications -DuoNeb 6. Morbid obesity/hyperglycemia -BMI is 37, did discuss weight loss and lifestyle changes. -Her last A1c from a year ago was 5.6, this blood sugar is likely a stress response and will normalize without therapy DVT: Lovenox Code Visit Inpatient E&M: 74657 Subs Hosp L2
--- NOTE | 2019-03-23 17:57 | PCM.PN.BLA ---
Progress Note Patient was unable to tolerate the Gastrografin small bowel follow-through due to abdominal pain. Patient still had contrast to her stomach some did go into the small bowel but not to the colon. Per report patient did have some gas in the colon. Patient denies any flatus. She is currently back to low intermittent suction on the NG has put out about 550 cc of green liquid since coming back to the floor from a small bowel follow-through. We will continue to decompress with the NG and plan to check a KUB in the morning. Did discuss with patient that this does not improve she may need surgery. We will continue to monitor.
[2019-03-23 20:28] LABS: Lactic Acid 0.7 mmol/L (0.4-2.0)
[2019-03-24] VITALS (16 sets, daily range): BP systolic 92–149; BP diastolic 38–94; PULSE 77–105; RESP 16–20; TEMP 36.1–37.1; O2SAT 90–100; BMI 37.1
[2019-03-24] MEDS: Morphine 2 MG/ML Syringe IV (01:16)
[2019-03-24] MEDS: 0.9% Normal Saline 1,000 ML 75 ML IV (01:16)
--- NOTE | 2019-03-24 05:55 | RAD_ITS ---
STUDY: X-RAY - ABDOMEN/PELVIS REASON FOR EXAM: Female, 78 years old. History of small bowel obstruction. TECHNIQUE: Single AP view of the abdomen / pelvis. COMPARISON: Comparison is made with prior study dated March 23, 2019. FINDINGS: And oral gastric tube is seen with the tip in the distal portion of the stomach. Stable mild dilated small bowel loops in the left upper quadrant and left midabdomen. Contrast is seen within the bladder from the recent CT scan. The visualized liver, spleen and kidneys are grossly normal in size and morphology. There are calcified phleboliths in the pelvis. There are diffuse degenerative changes of the visualized lumbar spine. RAD/Abdomen Single View IMPRESSION: Stable examination. Electronically Signed: Agnel Kyle, at 8:31 EDT , Service support ,
--- NOTE | 2019-03-24 06:25 | PCM.PN.SRG ---
Patient Problems: Active and Suspected Problems SBO (small bowel obstruction) (Acute) Subjective: Patient denies abdominal pain except with palpation she rates at a 2?3/10, which is improved from yesterday. Patient still denies flatus, patient only had 100 out of the NG yesterday evening and last night - Physical Exam General: Alert, Oriented x3, Cooperative, No apparent distress Lungs: Normal air movement Cardiovascular: Regular rate Abdomen: Soft, Distended - Mild, Tender - Left upper quadrant, epigastric, no peritoneal signs Extremities: No cyanosis, No edema Neurological: Cranial nerves II-XII grossly intact Psych/Mental Status: Normal Affect Vital Signs Temp Pulse Resp BP Pulse Ox 98.5 F 98 18 129/80 H 93 03/24/19 04:00 03/24/19 04:00 03/24/19 04:00 03/24/19 04:00 03/24/19 04:00 Oxygen Flow Rate (L/min) 1 Oxygen Delivery Method Room Air Weight: 180 lb 12.465 oz Body Mass Index (BMI) 37.1 Intake and Output for Last 24 Hours 03/22/19 03/23/19 03/24/19 23:59 23:59 23:59 Intake Total 2994 / 2994 634 / 634 Output Total 1300 / 1300 300 / 300 Balance 1694 / 1694 334 / 334 Laboratory Tests Past 24 Hrs 03/23/19 03/23/19 05:28 19:30 WBC 11.8 H RBC 3.99 L Hgb 12.2 Hct 37.0 MCV 92.7 MCH 30.6 MCHC 33.0 RDW 13.7 RDW Differential 45.2 H Plt Count 289 MPV 11.0 Immature Gran % (Auto) 0.300 Neut % (Auto) 80.9 H Lymph % (Auto) 7.9 L [place] % (Auto) 7.7 Eos % (Auto) 3.1 Baso % (Auto) 0.1 Absolute Neuts (auto) 9.6 H Absolute Lymphs (auto) 0.93 Total Counted Not Reportable Lactic Acid 0.7 Medical Necessity - Tobacco Use Smoking Status: Never smoker Tobacco Use: Non-smoker Assessment/Plan All Active Problems Pneumonia (Acute) Sepsis (Acute) Shortness of breath (Acute) Acute congestive heart failure (Acute) SBO (small bowel obstruction) (Acute) 78-year-old female with small bowel obstruction, leukocytosis 1. Keep patient n.p.o. with IV fluids and strict I's and O's, continue NG. KUB pending for this morning. Patient still has not passed any flatus. We will continue to monitor closely discussed with patient that she may need surgery. Patient does state pain is improved from yesterday. 2. Leukocytosis pending this morning. Patient's lactic acid from yesterday was 0.7 within normal range. Addendum 10 :33AM: Patient's KUB looks the same patient still having abdominal pain and denies any flatus. Recommended surgery to the patient. Would plan to do a diagnostic laparoscopy, possible laparotomy, possible bowel resection. Discussed the procedure as well as risks including but not limited to bleeding, infection, injury to another organ, anesthesia and the possibility of still being intubated after surgery in the ICU, and etc. Did discuss CODE STATUS with the patient she does want to be a full code. We will plan on surgery at about 2 PM today. eNgin Strickland M.D. Pager: [phone] [facility] [address] [place] [address], [address] [place] [address] Office: [phone]
--- NOTE | 2019-03-24 06:28 | PN.SURG_ITS ---
Patient Problems: Active and Suspected Problems SBO (small bowel obstruction) (Acute) Subjective: Patient denies abdominal pain except with palpation she rates at a 2?3/10, which is improved from yesterday. Patient still denies flatus, patient only had 100 out of the NG yesterday evening and last night - Physical Exam General: Alert, Oriented x3, Cooperative, No apparent distress Lungs: Normal air movement Cardiovascular: Regular rate Abdomen: Soft, Distended - Mild, Tender - Left upper quadrant, epigastric, no peritoneal signs Extremities: No cyanosis, No edema Neurological: Cranial nerves II-XII grossly intact Psych/Mental Status: Normal Affect Vital Signs Temp Pulse Resp BP Pulse Ox 98.5 F 98 18 129/80 H 93 03/24/19 04:00 03/24/19 04:00 03/24/19 04:00 03/24/19 04:00 03/24/19 04:00 Oxygen Flow Rate (L/min) 1 Oxygen Delivery Method Room Air Weight: 180 lb 12.465 oz Body Mass Index (BMI) 37.1 Intake and Output for Last 24 Hours 03/22/19 03/23/19 03/24/19 23:59 23:59 23:59 Intake Total 2994 / 2994 634 / 634 Output Total 1300 / 1300 300 / 300 Balance 1694 / 1694 334 / 334 Laboratory Tests Past 24 Hrs 03/23/19 03/23/19 05:28 19:30 WBC 11.8 H RBC 3.99 L Hgb 12.2 Hct 37.0 MCV 92.7 MCH 30.6 MCHC 33.0 RDW 13.7 RDW Differential 45.2 H Plt Count 289 MPV 11.0 Immature Gran % (Auto) 0.300 Neut % (Auto) 80.9 H Lymph % (Auto) 7.9 L [place] % (Auto) 7.7 Eos % (Auto) 3.1 Baso % (Auto) 0.1 Absolute Neuts (auto) 9.6 H Absolute Lymphs (auto) 0.93 Total Counted Not Reportable Lactic Acid 0.7 Medical Necessity - Tobacco Use Smoking Status: Never smoker Tobacco Use: Non-smoker Assessment/Plan All Active Problems Pneumonia (Acute) Sepsis (Acute) Shortness of breath (Acute) Acute congestive heart failure (Acute) SBO (small bowel obstruction) (Acute) 78-year-old female with small bowel obstruction, leukocytosis 1. Keep patient n.p.o. with IV fluids and strict I's and O's, continue NG. KUB pending for this morning. Patient still has not passed any flatus. We will continue to monitor closely discussed with patient that she may need surgery. Patient does state pain is improved from yesterday. 2. Leukocytosis pending this morning. Patient's lactic acid from yesterday was 0.7 within normal range. Addendum 10 :33AM: Patient's KUB looks the same patient still having abdominal pain and denies any flatus. Recommended surgery to the patient. Would plan to do a diagnostic laparoscopy, possible laparotomy, possible bowel resection. Discussed the procedure as well as risks including but not limited to bleeding, infection, injury to another organ, anesthesia and the possibility of still being intubated after surgery in the ICU, and etc. Did discuss CODE STATUS with the patient she does want to be a full code. We will plan on surgery at about 2 PM today. Negin Strickland M.D. Pager: [phone] [facility] [address] [place] [address], [address] [place] [address] Office: [phone]
[2019-03-24] MEDS: 0.9% NaCl Peripheral Flush Adult/Peds IV ×3 (06:32→07:53)
[2019-03-24 06:56] LABS: Absolute Lymphocyte Count 0.95 X10^3/ul (0.83-4.51); Absolute Neutrophil Count 9.5 X10^3/uL (2.0-7.7); Basophil# 0.02 X10^3/uL; Basophil% 0.2 % (0-1); Eosinophil# 0.02 X10^3/uL; Eosinophils% 0.2 % (0-5); Hematocrit 36.3 % (37-47); Hemoglobin 11.4 g/dl (12.0-15.0); Lymphocyte # 0.95 X10^3/ul (4.0); Lymphocyte % 8.4 % (19-41); Mean Corp Hgb Conc 31.4 g/gl (32-36); Mean Corpuscular Hgb 29.9 pg (27.0-32.0); Mean Corpuscular Volume 95.3 fL (81-99); Mean Platelet Vol. 10.3 fl (6.2-12.0); Monocyte% 7.9 % (0-10); Neutrophil # 9.45 X10^3/uL (2.7-7.7); Platelet Count 332 K/mm3 (150-450); RBC Distribution Width CV 14.1 % (11.6-14.6); RBC Distribution Width SD 46.5 fl (35.1-43.9); Red Blood Count 3.81 M/mm3 (4.2-5.4); White Blood Count 11.4 K/mm3 (4.4-11.0)
[2019-03-24 06:57] LABS: POSITIVE COUNT NO; POSITIVE DIFFERENTIAL NO; POSITIVE MORPHOLOGY NO
[2019-03-24 07:10] LABS: Anion Gap 12 (5-15); BUN 30 mg/dL (7-18); BUN/Creat Ratio 46.3 RATIO (10-20); Calcium,Total 9.1 mg/dL (8.5-10.1); Chloride 107 mmol/L (98-107); Creatinine, Serum 0.65 mg/dL (0.55-1.02); EST Glomerular Filtration Rate 94 mL/min (>60); Est Glom Filt Rate - Afr Amer 114 mL/min (>60); Estimated Creatinine Clearance 61.96 ml/min; Glucose 68 mg/dL (74-106); Potassium 4.1 mmol/L (3.5-5.1); Sodium Level 144 mmol/L (136-145)
[2019-03-24] MEDS: Ipratropium/Albuterol Sulfate 3 ML AMPUL.NEB INHALATION ×2 (07:29→19:36)
[2019-03-24] MEDS: Ondansetron 4 MG/2 ML Vial IV (07:52)
--- NOTE | 2019-03-24 09:20 | PCM.PN.BLA ---
Progress Note Patient evaluated resting in bed. She notes minimal amount of of abdominal discomfort. She notes nausea. Patient not progressing as planned. Dr. Strickland with plan to perform a diagnostic laparoscopy possible laparotomy possible small bowel resection around 1400 pm. Code Visit Inpatient E&M: 13258 Subs Hosp L1 - no charge
--- NOTE | 2019-03-24 09:24 | PN_ITS ---
Progress Note Patient evaluated resting in bed. She notes minimal amount of of abdominal discomfort. She notes nausea. Patient not progressing as planned. Dr. Strickland with plan to perform a diagnostic laparoscopy possible laparotomy possible small bowel resection around 1400 pm. Code Visit Inpatient E&M: 60210 Subs Hosp L1 - no charge
--- NOTE | 2019-03-24 11:10 | PCM.PN.HOSP ---
Patient Problems: Active and Suspected Problems SBO (small bowel obstruction) (Acute) Subjective: Says that her abdominal pain is a bit worse than what it was yesterday, she has not not had any flatus or BMs. She continues to have output from her NG tube and has a sore throat. Vitals/I&O's: Vital Signs Temp Pulse Resp BP Pulse Ox 98.7 F 105 H 18 123/48 H 94 03/24/19 10:41 03/24/19 10:41 03/24/19 10:41 03/24/19 10:41 03/24/19 10:41 Oxygen Flow Rate (L/min) 1 Oxygen Delivery Method Room Air Weight: 180 lb 12.465 oz Body Mass Index (BMI) 37.1 Intake and Output for Last 24 Hours 03/22/19 03/23/19 03/24/19 23:59 23:59 23:59 Intake Total 2994 / 2994 1169 / 1169 Output Total 1300 / 1300 650 / 650 Balance 1694 / 1694 519 / 519 General: Alert, Oriented x3, Cooperative, No apparent distress HEENT: Atraumatic, PERRLA, EOMI, Normocephalic Oral: Dry Mucosa Neck: Supple, No JVD Lungs: Clear to auscultation, Normal air movement, No rhonchi, No wheeze, No rales, Diminished Cardiovascular: Regular rate, Regular Rhythm, Normal S1, Normal S2, No murmurs Abdomen: Soft, Non-Distended, No Hepato-splenomegaly, Tender -right upper quadrant Extremities: No edema, Capillary Refill Less than 3 Seconds Skin: No rashes, No breakdown Neurological: Neuro grossly intact, Sensory exam intact to light touch and pain Psych/Mental Status: Normal Affect, Appropriate Laboratory Results 03/23/19 19:30: Lactic Acid 0.7 03/24/19 06:33: WBC 11.4 H, RBC 3.81 L, Hgb 11.4 L, Hct 36.3 L, MCV 95.3, MCH 29.9, MCHC 31.4 L, RDW 14.1, RDW Differential 46.5 H, Plt Count 332, MPV 10.3, Immature Gran % (Auto) 0.300, Neut % (Auto) 83.0 H, Lymph % (Auto) 8.4 L, [place] % (Auto) 7.9, Eos % (Auto) 0.2, Baso % (Auto) 0.2, Absolute Neuts (auto) 9.5 H, Absolute Lymphs (auto) 0.95, Total Counted Not Reportable 03/24/19 06:33: Sodium 144, Potassium 4.1, Chloride 107, Carbon Dioxide 25.0, Anion Gap 12, BUN 30 H, Creatinine 0.65, Estim Creat Clear Calc 61.96, Est GFR (MDRD) Af Amer 114, Est GFR (MDRD) Non-Af 94, BUN/Creatinine Ratio 46.3 H, Glucose 68 L, Calcium 9.1 Current Medications Albuterol Sulfate (Ventolin Aerosols) 2.5 mg INHALATION Q2H PRN PRN PRN Reason: dyspnea, wheezing Albuterol/Ipratropium (Duoneb) 3 ml INHALATION Q6HWA.RT [facility] Last Admin: 03/24/19 07:29 Dose: 3 ml Dextrose (D50w Syringe) 0 gm IV X1 PRN; Protocol PRN Reason: Hypoglycemia Dibucaine (Dibucaine) 1 applic TOPICAL 4X/DAY PRN PRN Reason: ANAL PAIN Glucagon () 1 mg IM .X1 PRN PRN Reason: Hypoglycemia Hydralazine HCl (Apresoline Iv) 10 mg IV Q4H PRN PRN PRN Reason: SBP > 160 Pantoprazole Sodium 40 mg/ (Sodium Chloride) 110 mls @ 330 mls/hr IV Q12 [facility] Last Admin: 03/24/19 10:34 Dose: 330 mls/hr Sodium Chloride () 250 mls @ 15 mls/hr IV .[id number] PRN PRN Reason: SALINE FLUSH Sodium Chloride () 1,000 mls @ 75 mls/hr IV .[id number] [facility] Last Admin: 03/24/19 01:16 Dose: 75 mls/hr Morphine Sulfate () 1 - 2 mg IV Q3H PRN PRN PRN Reason: PAIN Last Admin: 03/24/19 01:16 Dose: 2 mg Ondansetron HCl (Zofran) 4 mg IV Q8H PRN PRN PRN Reason: NAUSEA/VOMITING Last Admin: 03/24/19 07:52 Dose: 4 mg Sodium Chloride () 5 - 15 ml IV UD PRN PRN Reason: SALINE FLUSH Last Admin: 03/24/19 07:53 Dose: 10 ml Throat Lozenges (Cepacol Sore Throat Lozenge) 1 lozenge MUCOUS MEM Q2H PRN PRN PRN Reason: SORE THROAT Last Admin: 03/23/19 22:58 Dose: 1 lozenge Medical Necessity - Tobacco Use Smoking Status: Never smoker Tobacco Use: Non-smoker Assessment/Plan All Active Problems Pneumonia (Acute) Sepsis (Acute) Shortness of breath (Acute) Acute congestive heart failure (Acute) SBO (small bowel obstruction) (Acute) 1. SBO -Given her lack of progress will proceed with an ex lap today -Maintain n.p.o. -Treat with IV fluids and the NG tube 2. Chronic diastolic CHF/HTN/HLD -We will be gentle with hydration for her small bowel obstruction based on her diastolic CHF -She can resume her aspirin, statin, lisinopril, and taking p.o. will hold her Lasix while on IV fluids 3. Single kidney status post right nephrectomy with CKD 3 -Admission labs are stable and will continue to monitor 4. Arthrogryposis -She uses bilateral lower extremity braces -We will continue to monitor and consult PT/OT 5. Chronic COPD -Only not in exacerbation, will continue with her home medications -DuoNeb 6. Morbid obesity/hyperglycemia -BMI is 37, did discuss weight loss and lifestyle changes. -Her last A1c from a year ago was 5.6, this blood sugar is likely a stress response and will normalize without therapy DVT: Lovenox Code Visit Inpatient E&M: 70069 Subs Hosp L2
--- NOTE | 2019-03-24 12:06 | RAD_ITS ---
STUDY: X-RAY CHEST REASON FOR EXAM: Female, 78 years old. Shortness of breath. Chest. TECHNIQUE: Single AP portable view of the chest. COMPARISON: Comparison is made with prior study dated March 22, 2019. FINDINGS: An oral gastric tube is seen with the tip below the left hemidiaphragm. The lungs are clear and expanded. There is no demonstrated pleural abnormality. There is moderate cardiac enlargement. Normal mediastinum and fouzia. Normal visualized pulmonary arteries. There is atherosclerotic calcification of the aortic arch with tortuosity. Normal visualized thoracic spine. There is degenerative osteoarthritis of the bilateral shoulders. There is no demonstrated abnormality of the visualized soft tissue structures of the upper abdomen. RAD/Chest 1 View (Portable) IMPRESSION: Cardiomegaly. The lungs are clear. Electronically Signed: Angel Kyle, at 13:08 EDT , Service support ,
--- NOTE | 2019-03-24 12:15 | RAD_ITS ---
STUDY: X-RAY - ABDOMEN/PELVIS REASON FOR EXAM: Female, 78 years old. Nasogastric tube placement. TECHNIQUE: Single AP view of the abdomen / pelvis. COMPARISON: Comparison is made with prior examination done earlier today. FINDINGS: The tip of the nasogastric tube is in the distal portion of the stomach. The gas pattern is unchanged. RAD/Abdomen Single View IMPRESSION: The tip of the nasogastric tube is in the distal portion of the stomach. Electronically Signed: Angel Kyle, at 13:09 EDT , Service support ,
--- NOTE | 2019-03-24 13:22 | NURSING ---
1319- informed Julita ALBERTO in [facility] xray results are back and in computer.
[2019-03-24] MEDS: Bupiv/Epi 0.5% Mpf 30 ML Vial ×2 (14:15→16:09)
--- NOTE | 2019-03-24 16:00 | PCM.OPRPT ---
Report of Operation Date of Procedure: 03/24/19 Pre-Operative Diagnosis: Small bowel obstruction Post-Operative Diagnosis: Same Surgery/Procedure Performed:: Diagnostic laparoscopy, release of small bowel obstruction slip caster: Orlando Lorenz slip caster: Kathy Grider Type of Anesthesia:: General/Supplemental Anesthesiologist: Jc Sauceda Special Medications: Cefotan 2 g IV x1 Specimen's removed: None Estimated Blood Loss (mL): < 10 cc Fluids Replaced: 700 cc Description of Procedure: Patient was brought into the operating room placed supine on the operating table. Timeout was completed verifying correct patient, procedure, positioning, special equipment was verified prior to beginning procedure. Aquino catheter was placed. Abdomen was prepped and draped in usual sterile fashion. The 15 blade scalpel was used to place a supraumbilical port. Kenna grasper was used to grasp the stalk of the umbilicus. Shane was used to elevate the fascia. Visiport technique was used with a 5 mm trocar into the abdomen. No injuries noted on entry of the abdomen. 2 more 5 mm trochars were placed in the left upper quadrant and left lower quadrant. The cecum was identified along with decompressed small bowel. The small bowel was ran and overhand until dilated bowel was seen. There is no obvious adhesion causing the change in caliber. Some of the small bowel did appear irritated however all was viable. Small bowel was ran again from the terminal ileum and the small bowel was able to be ran easily even where it change from small caliber to dilated small bowel. The area of transition was patent. All 5 mm port sites were removed. A supraumbilical incision was closed with interrupted subdermal sutures of 3-0 Vicryl. The skin was closed with 4-0 Monocryl sutures. Patient was extubated. Patient tolerates procedure well was taken to the postanesthesia care unit in stable condition. - Complications none
--- NOTE | 2019-03-24 16:07 | OP.PCM_ITS ---
Report of Operation Date of Procedure: 03/24/19 Pre-Operative Diagnosis: Small bowel obstruction Post-Operative Diagnosis: Same Surgery/Procedure Performed:: Diagnostic laparoscopy, release of small bowel obstruction parking lot attendant: Orlando Lorenz parking lot attendant: Kathy Grider Type of Anesthesia:: General/Supplemental Anesthesiologist: Jc Sauceda Special Medications: Cefotan 2 g IV x1 Specimen's removed: None Estimated Blood Loss (mL): < 10 cc Fluids Replaced: 700 cc Description of Procedure: Patient was brought into the operating room placed supine on the operating table. Timeout was completed verifying correct patient, procedure, positioning, special equipment was verified prior to beginning procedure. Aquino catheter was placed. Abdomen was prepped and draped in usual sterile fashion. The 15 blade scalpel was used to place a supraumbilical port. Kenna grasper was used to grasp the stalk of the umbilicus. Shane was used to elevate the fascia. Visiport technique was used with a 5 mm trocar into the abdomen. No injuries noted on entry of the abdomen. 2 more 5 mm trochars were placed in the left upper quadrant and left lower quadrant. The cecum was identified along with decompressed small bowel. The small bowel was ran and overhand until dilated bowel was seen. There is no obvious adhesion causing the change in caliber. Some of the small bowel did appear irritated however all was viable. Small bowel was ran again from the terminal ileum and the small bowel was able to be ran easily even where it change from small caliber to dilated small bowel. The area of transition was patent. All 5 mm port sites were removed. A supraumbilical incision was closed with interrupted subdermal sutures of 3-0 Vicryl. The skin was closed with 4-0 Monocryl sutures. Patient was extubated. Patient tolerates procedure well was taken to the postanesthesia care unit in stable condition. - Complications none
[2019-03-24] MEDS: Phenol/Sodium Phenolate 180ML 5 SPRAY MUCOUS MEM ×2 (20:29→23:34)
[2019-03-24] MEDS: 0.9% Normal Saline 1,000 ML 15 ML IV (21:43)
[2019-03-25] VITALS (7 sets, daily range): BP systolic 104–141; BP diastolic 57–82; PULSE 81–107; RESP 16–22; TEMP 36.4–36.8; O2SAT 94–100
[2019-03-25 06:48] LABS: Absolute Lymphocyte Count 0.78 X10^3/ul (0.83-4.51); Absolute Neutrophil Count 10.1 X10^3/uL (2.0-7.7); Basophil# 0.02 X10^3/uL; Basophil% 0.2 % (0-1); Eosinophil# 0.03 X10^3/uL; Eosinophils% 0.2 % (0-5); Hematocrit 33.3 % (37-47); Hemoglobin 10.4 g/dl (12.0-15.0); Lymphocyte # 0.78 X10^3/ul (4.0); Lymphocyte % 6.4 % (19-41); Mean Corp Hgb Conc 31.2 g/gl (32-36); Mean Corpuscular Hgb 29.8 pg (27.0-32.0); Mean Corpuscular Volume 95.4 fL (81-99); Mean Platelet Vol. 9.9 fl (6.2-12.0); Monocyte# 1.29 X10^3/uL; Monocyte% 10.5 % (0-10); Neutrophil # 10.13 X10^3/uL (2.7-7.7); Neutrophil % 82.5 % (47-70); Platelet Count 278 K/mm3 (150-450); RBC Distribution Width CV 14.4 % (11.6-14.6); RBC Distribution Width SD 50.2 fl (35.1-43.9); Red Blood Count 3.49 M/mm3 (4.2-5.4); White Blood Count 12.3 K/mm3 (4.4-11.0)
[2019-03-25 06:58] LABS: POSITIVE COUNT NO; POSITIVE DIFFERENTIAL NO; POSITIVE MORPHOLOGY NO
[2019-03-25 07:05] LABS: Anion Gap 9 (5-15); BUN 25 mg/dL (7-18); BUN/Creat Ratio 33.2 RATIO (10-20); Calcium,Total 8.5 mg/dL (8.5-10.1); Chloride 114 mmol/L (98-107); Creatinine, Serum 0.75 mg/dL (0.55-1.02); EST Glomerular Filtration Rate 80 mL/min (>60); Est Glom Filt Rate - Afr Amer 96 mL/min (>60); Estimated Creatinine Clearance 61.96 ml/min; Glucose 68 mg/dL (74-106); Potassium 3.9 mmol/L (3.5-5.1); Sodium Level 144 mmol/L (136-145)
[2019-03-25] MEDS: Ipratropium/Albuterol Sulfate 3 ML AMPUL.NEB INHALATION ×2 (07:21→19:18)
--- NOTE | 2019-03-25 08:15 | PN.SURG_ITS ---
Patient Problems: Active and Suspected Problems SBO (small bowel obstruction) (Acute) Subjective: Patient evaluated resting comfortably in bed. She denies abdominal pain. She notes hoarseness and moderate amount of phlegm. Negative flatus, BM. NG tube intact with very little output - Physical Exam General: Alert, Oriented x3, Cooperative HEENT: - - NG tube intact Abdomen: Soft, Non Tender, Distended - very slightly, - - Incisions c/d/i. No erythema or infection noted. Vital Signs Temp Pulse Resp BP Pulse Ox 97.5 F L 88 16 107/57 L 98 03/25/19 07:18 03/25/19 07:21 03/25/19 07:21 03/25/19 07:18 03/25/19 07:21 Oxygen Flow Rate (L/min) 2 Oxygen Delivery Method Room Air Weight: 182 lb 15.739 oz Body Mass Index (BMI) 37.1 Intake and Output for Last 24 Hours 03/23/19 03/24/19 03/25/19 23:59 23:59 23:59 Intake Total 2994 / 2994 2652 / 2652 386 / 386 Output Total 1300 / 1300 1130 / 1130 450 / 450 Balance 1694 / 1694 1522 / 1522 -64 / -64 Laboratory Tests Past 24 Hrs 03/25/19 03/25/19 06:36 06:36 WBC 12.3 H RBC 3.49 L Hgb 10.4 L Hct 33.3 L MCV 95.4 MCH 29.8 MCHC 31.2 L RDW 14.4 RDW Differential 50.2 H Plt Count 278 MPV 9.9 Immature Gran % (Auto) 0.200 Neut % (Auto) 82.5 H Lymph % (Auto) 6.[address] [place] [place] % (Auto) 10.5 H Eos % (Auto) 0.2 Baso % (Auto) 0.2 Absolute Neuts (auto) 10.1 H Absolute Lymphs (auto) 0.78 L Total Counted Not Reportable Sodium 144 Potassium 3.9 Chloride 114 H Carbon Dioxide 21.0 Anion Gap 9 BUN 25 H Creatinine 0.75 Estim Creat Clear Calc 61.96 Est GFR (MDRD) Af Amer 96 Est GFR (MDRD) Non-Af 80 BUN/Creatinine Ratio 33.2 H Glucose 68 L Calcium 8.5 Medical Necessity - Tobacco Use Smoking Status: Never smoker Tobacco Use: Non-smoker Assessment/Plan All Active Problems Pneumonia (Acute) Sepsis (Acute) Shortness of breath (Acute) Acute congestive heart failure (Acute) SBO (small bowel obstruction) (Acute) I am following this patient in conjunction with Dr. Strickland Impression: Small bowel obstruction. S/p diagnostic laparoscopy with release of small bowel. May have ice chips Continue NG tube until flatus Encourage sitting in the chair and ambulation We will continue to monitor this patient Code Visit Inpatient E&M: 84784 Subs Hosp L1 - Post-op
[2019-03-25] MEDS: Phenol/Sodium Phenolate 180ML 5 SPRAY MUCOUS MEM ×2 (08:21→13:24)
--- NOTE | 2019-03-25 08:55 | PCM.PN.HOSP ---
Patient Problems: Active and Suspected Problems SBO (small bowel obstruction) (Acute) Subjective: Feeling better today after surgery yesterday, no adhesions were found per surgical report. She denies any nausea but has also not had any flatus or bowel movement Vitals/I&O's: Vital Signs Temp Pulse Resp BP Pulse Ox 97.5 F L 88 16 107/57 L 98 03/25/19 07:18 03/25/19 07:21 03/25/19 07:21 03/25/19 07:18 03/25/19 07:21 Oxygen Flow Rate (L/min) 2 Oxygen Delivery Method Room Air Weight: 182 lb 15.739 oz Body Mass Index (BMI) 37.1 Intake and Output for Last 24 Hours 03/23/19 03/24/19 03/25/19 23:59 23:59 23:59 Intake Total 2994 / 2994 2652 / 2652 386 / 386 Output Total 1300 / 1300 1130 / 1130 450 / 450 Balance 1694 / 1694 1522 / 1522 -64 / -64 General: Alert, Oriented x3, Cooperative, No apparent distress HEENT: Atraumatic, PERRLA, EOMI, Normocephalic Oral: Dry Mucosa Neck: Supple, No JVD Lungs: Clear to auscultation, Normal air movement, No rhonchi, No wheeze, No rales, Diminished Cardiovascular: Regular rate, Regular Rhythm, Normal S1, Normal S2, No murmurs Abdomen: Soft, Non-Distended, No Hepato-splenomegaly, Tender -right upper quadrant Extremities: No edema, Capillary Refill Less than 3 Seconds Skin: No rashes, No breakdown, incisional dressings are clean dry and intact Neurological: Neuro grossly intact, Sensory exam intact to light touch and pain Psych/Mental Status: Normal Affect, Appropriate Laboratory Results 03/25/19 06:36: WBC 12.3 H, RBC 3.49 L, Hgb 10.4 L, Hct 33.3 L, MCV 95.4, MCH 29.8, MCHC 31.2 L, RDW 14.4, RDW Differential 50.2 H, Plt Count 278, MPV 9.9, Immature Gran % (Auto) 0.200, Neut % (Auto) 82.5 H, Lymph % (Auto) 6.4 L, [place] % (Auto) 10.5 H, Eos % (Auto) 0.2, Baso % (Auto) 0.2, Absolute Neuts (auto) 10.1 H, Absolute Lymphs (auto) 0.78 L, Total Counted Not Reportable 03/25/19 06:36: Sodium 144, Potassium 3.9, Chloride 114 H, Carbon Dioxide 21.0, Anion Gap 9, BUN 25 H, Creatinine 0.75, Estim Creat Clear Calc 61.96, Est GFR (MDRD) Af Amer 96, Est GFR (MDRD) Non-Af 80, BUN/Creatinine Ratio 33.2 H, Glucose 68 L, Calcium 8.5 Current Medications Albuterol Sulfate (Ventolin Aerosols) 2.5 mg INHALATION Q2H PRN PRN PRN Reason: dyspnea, wheezing Albuterol/Ipratropium (Duoneb) 3 ml INHALATION Q6HWA.RT [facility] Last Admin: 03/25/19 07:21 Dose: 3 ml Dextrose (D50w Syringe) 0 gm IV X1 PRN; Protocol PRN Reason: Hypoglycemia Dibucaine (Dibucaine) 1 applic TOPICAL 4X/DAY PRN PRN Reason: ANAL PAIN Glucagon () 1 mg IM .X1 PRN PRN Reason: Hypoglycemia Hydralazine HCl (Apresoline Iv) 10 mg IV Q4H PRN PRN PRN Reason: SBP > 160 Pantoprazole Sodium 40 mg/ (Sodium Chloride) 110 mls @ 330 mls/hr IV Q12 [facility] Last Admin: 03/25/19 08:21 Dose: 330 mls/hr Sodium Chloride () 250 mls @ 15 mls/hr IV .[id number] PRN PRN Reason: SALINE FLUSH Sodium Chloride () 1,000 mls @ 15 mls/hr IV .Q48H [facility] Last Admin: 03/24/19 21:43 Dose: 15 mls/hr Morphine Sulfate () 1 - 2 mg IV Q3H PRN PRN PRN Reason: PAIN Last Admin: 03/24/19 01:16 Dose: 2 mg Ondansetron HCl (Zofran) 4 mg IV Q8H PRN PRN PRN Reason: NAUSEA/VOMITING Last Admin: 03/24/19 07:52 Dose: 4 mg Phenol/Menthol (Chloraseptic (Bkc)) 5 spray MUCOUS MEM Q2H PRN PRN Reason: THROAT PAIN D/T NGT IRRITATION Last Admin: 03/25/19 08:21 Dose: 5 spray Sodium Chloride () 5 - 15 ml IV UD PRN PRN Reason: SALINE FLUSH Last Admin: 03/24/19 07:53 Dose: 10 ml Throat Lozenges (Cepacol Sore Throat Lozenge) 1 lozenge MUCOUS MEM Q2H PRN PRN PRN Reason: SORE THROAT Last Admin: 03/23/19 22:58 Dose: 1 lozenge Medical Necessity - Tobacco Use Smoking Status: Never smoker Tobacco Use: Non-smoker Assessment/Plan All Active Problems Pneumonia (Acute) Sepsis (Acute) Shortness of breath (Acute) Acute congestive heart failure (Acute) SBO (small bowel obstruction) (Acute) 1. SBO POD 1 -No significant adhesion burden was found during the exploratory laparoscopy, some of the small bowel was released -Maintain n.p.o. continue with the NG tube and Chloraseptic spray for the sore throat -Treat with IV fluids -Slight leukocytosis is reactive to surgery -Protonix for NG prophylaxis 2. Chronic diastolic CHF/HTN/HLD -We will be gentle with hydration for her small bowel obstruction based on her diastolic CHF -She can resume her aspirin, statin, lisinopril, and taking p.o. will hold her Lasix while on IV fluids 3. Single kidney status post right nephrectomy with CKD 3 -Admission labs are stable and will continue to monitor 4. Arthrogryposis -She uses bilateral lower extremity braces -We will continue to monitor and consult PT/OT 5. Chronic COPD -Only not in exacerbation, will continue with her home medications -DuoNeb 6. Morbid obesity/hyperglycemia -BMI is 37, did discuss weight loss and lifestyle changes. -Her last A1c from a year ago was 5.6, this blood sugar is likely a stress response and will normalize without therapy DVT: SCDs Code Visit Inpatient E&M: 72810 Subs Hosp L2
--- NOTE | 2019-03-25 08:59 | PN_ITS ---
Patient Problems: Active and Suspected Problems SBO (small bowel obstruction) (Acute) Subjective: Feeling better today after surgery yesterday, no adhesions were found per surgical report. She denies any nausea but has also not had any flatus or bowel movement Vitals/I&O's: Vital Signs Temp Pulse Resp BP Pulse Ox 97.5 F L 88 16 107/57 L 98 03/25/19 07:18 03/25/19 07:21 03/25/19 07:21 03/25/19 07:18 03/25/19 07:21 Oxygen Flow Rate (L/min) 2 Oxygen Delivery Method Room Air Weight: 182 lb 15.739 oz Body Mass Index (BMI) 37.1 Intake and Output for Last 24 Hours 03/23/19 03/24/19 03/25/19 23:59 23:59 23:59 Intake Total 2994 / 2994 2652 / 2652 386 / 386 Output Total 1300 / 1300 1130 / 1130 450 / 450 Balance 1694 / 1694 1522 / 1522 -64 / -64 General: Alert, Oriented x3, Cooperative, No apparent distress HEENT: Atraumatic, PERRLA, EOMI, Normocephalic Oral: Dry Mucosa Neck: Supple, No JVD Lungs: Clear to auscultation, Normal air movement, No rhonchi, No wheeze, No rales, Diminished Cardiovascular: Regular rate, Regular Rhythm, Normal S1, Normal S2, No murmurs Abdomen: Soft, Non-Distended, No Hepato-splenomegaly, Tender -right upper quadrant Extremities: No edema, Capillary Refill Less than 3 Seconds Skin: No rashes, No breakdown, incisional dressings are clean dry and intact Neurological: Neuro grossly intact, Sensory exam intact to light touch and pain Psych/Mental Status: Normal Affect, Appropriate Laboratory Results 03/25/19 06:36: WBC 12.3 H, RBC 3.49 L, Hgb 10.4 L, Hct 33.3 L, MCV 95.4, MCH 29.8, MCHC 31.2 L, RDW 14.4, RDW Differential 50.2 H, Plt Count 278, MPV 9.9, Immature Gran % (Auto) 0.200, Neut % (Auto) 82.5 H, Lymph % (Auto) 6.4 L, [place] % (Auto) 10.5 H, Eos % (Auto) 0.2, Baso % (Auto) 0.2, Absolute Neuts (auto) 10.1 H , Absolute Lymphs (auto) 0.78 L, Total Counted Not Reportable 03/25/19 06:36: Sodium 144, Potassium 3.9, Chloride 114 H, Carbon Dioxide 21.0, Anion Gap 9, BUN 25 H, Creatinine 0.75, Estim Creat Clear Calc 61.96, Est GFR (MDRD) Af Amer 96, Est GFR (MDRD) Non-Af 80, BUN/Creatinine Ratio 33.2 H, Glucose 68 L, Calcium 8.5 Current Medications Albuterol Sulfate (Ventolin Aerosols) 2.5 mg INHALATION Q2H PRN PRN PRN Reason: dyspnea, wheezing Albuterol/Ipratropium (Duoneb) 3 ml INHALATION Q6HWA.RT [facility] Last Admin: 03/25/19 07:21 Dose: 3 ml Dextrose (D50w Syringe) 0 gm IV X1 PRN; Protocol PRN Reason: Hypoglycemia Dibucaine (Dibucaine) 1 applic TOPICAL 4X/DAY PRN PRN Reason: ANAL PAIN Glucagon () 1 mg IM .X1 PRN PRN Reason: Hypoglycemia Hydralazine HCl (Apresoline Iv) 10 mg IV Q4H PRN PRN PRN Reason: SBP > 160 Pantoprazole Sodium 40 mg/ (Sodium Chloride) 110 mls @ 330 mls/hr IV Q12 [facility] Last Admin: 03/25/19 08:21 Dose: 330 mls/hr Sodium Chloride () 250 mls @ 15 mls/hr IV .[id number] PRN PRN Reason: SALINE FLUSH Sodium Chloride () 1,000 mls @ 15 mls/hr IV .Q48H [facility] Last Admin: 03/24/19 21:43 Dose: 15 mls/hr Morphine Sulfate () 1 - 2 mg IV Q3H PRN PRN PRN Reason: PAIN Last Admin: 03/24/19 01:16 Dose: 2 mg Ondansetron HCl (Zofran) 4 mg IV Q8H PRN PRN PRN Reason: NAUSEA/VOMITING Last Admin: 03/24/19 07:52 Dose: 4 mg Phenol/Menthol (Chloraseptic (Bkc)) 5 spray MUCOUS MEM Q2H PRN PRN Reason: THROAT PAIN D/T NGT IRRITATION Last Admin: 03/25/19 08:21 Dose: 5 spray Sodium Chloride () 5 - 15 ml IV UD PRN PRN Reason: SALINE FLUSH Last Admin: 03/24/19 07:53 Dose: 10 ml Throat Lozenges (Cepacol Sore Throat Lozenge) 1 lozenge MUCOUS MEM Q2H PRN PRN PRN Reason: SORE THROAT Last Admin: 03/23/19 22:58 Dose: 1 lozenge Medical Necessity - Tobacco Use Smoking Status: Never smoker Tobacco Use: Non-smoker Assessment/Plan All Active Problems Pneumonia (Acute) Sepsis (Acute) Shortness of breath (Acute) Acute congestive heart failure (Acute) SBO (small bowel obstruction) (Acute) 1. SBO POD 1 -No significant adhesion burden was found during the exploratory laparoscopy, some of the small bowel was released -Maintain n.p.o. continue with the NG tube and Chloraseptic spray for the sore throat -Treat with IV fluids -Slight leukocytosis is reactive to surgery -Protonix for NG prophylaxis 2. Chronic diastolic CHF/HTN/HLD -We will be gentle with hydration for her small bowel obstruction based on her diastolic CHF -She can resume her aspirin, statin, lisinopril, and taking p.o. will hold her Lasix while on IV fluids 3. Single kidney status post right nephrectomy with CKD 3 -Admission labs are stable and will continue to monitor 4. Arthrogryposis -She uses bilateral lower extremity braces -We will continue to monitor and consult PT/OT 5. Chronic COPD -Only not in exacerbation, will continue with her home medications -DuoNeb 6. Morbid obesity/hyperglycemia -BMI is 37, did discuss weight loss and lifestyle changes. -Her last A1c from a year ago was 5.6, this blood sugar is likely a stress response and will normalize without therapy DVT: SCDs Code Visit Inpatient E&M: 12139 Subs Hosp L2
[2019-03-25] MEDS: 0.9% NaCl Peripheral Flush Adult/Peds IV (13:26)
--- NOTE | 2019-03-25 14:11 | RAD_ITS ---
STUDY: X-RAY CHEST REASON FOR EXAM: Female, 78 years old. Abdominal pain. Small bowel obstruction. TECHNIQUE: Single AP portable view of the chest. COMPARISON: March 24, 2019. FINDINGS: Stable NG tube. The lungs are mildly hyperexpanded. No focal mass or infiltrate. There is no demonstrated pleural abnormality. The heart remains enlarged. Normal mediastinum and fouzia. Normal visualized pulmonary arteries. Normal visualized aortic arch and descending thoracic aorta. The thoracic spine is obscured by the mediastinum. There is degenerative osteoarthritis of the bilateral shoulders. There is no demonstrated abnormality of the visualized soft tissue structures of the upper abdomen. RAD/Chest 1 View (Portable) IMPRESSION: Cardiomegaly without acute pulmonary disease or interval change. Electronically Signed: Benjamín Dejesus DO at 16:32 EDT Tel [phone], Service support ,
[2019-03-25] MEDS: Ensure Clear 120 ML Liquid PO (17:28)
[2019-03-25] MEDS: BENZOCAINE/MENTHOL 1 LOZENGE MUCOUS MEM (17:33)
[2019-03-26] MEDS: 0.9% Normal Saline 1,000 ML 75 ML IV (00:13)
[2019-03-26 03:14] VITALS: BP 155/82; PULSE 94; RESP 18; TEMP 36.8; O2SAT 95
[2019-03-26 07:02] LABS: Absolute Lymphocyte Count 0.94 X10^3/ul (0.83-4.51); Absolute Neutrophil Count 5.2 X10^3/uL (2.0-7.7); Basophil# 0.01 X10^3/uL; Basophil% 0.1 % (0-1); Eosinophil# 0.06 X10^3/uL; Eosinophils% 0.9 % (0-5); Hematocrit 31.2 % (37-47); Hemoglobin 9.7 g/dl (12.0-15.0); Lymphocyte # 0.94 X10^3/ul (4.0); Lymphocyte % 13.6 % (19-41); Mean Corp Hgb Conc 31.1 g/gl (32-36); Mean Corpuscular Hgb 29.8 pg (27.0-32.0); Mean Corpuscular Volume 95.7 fL (81-99); Mean Platelet Vol. 10.5 fl (6.2-12.0); Monocyte# 0.66 X10^3/uL; Monocyte% 9.5 % (0-10); Neutrophil # 5.23 X10^3/uL (2.7-7.7); Neutrophil % 75.6 % (47-70); Platelet Count 85 K/mm3 (150-450); RBC Distribution Width CV 14.6 % (11.6-14.6); RBC Distribution Width SD 50.7 fl (35.1-43.9); Red Blood Count 3.26 M/mm3 (4.2-5.4); White Blood Count 6.9 K/mm3 (4.4-11.0)
[2019-03-26 07:04] LABS: POSITIVE COUNT NO; POSITIVE DIFFERENTIAL NO; POSITIVE MORPHOLOGY NO
[2019-03-26 07:12] LABS: Anion Gap 7 (5-15); BUN 21 mg/dL (7-18); Calcium,Total 8.1 mg/dL (8.5-10.1); Chloride 114 mmol/L (98-107); Creatinine, Serum 0.57 mg/dL (0.55-1.02); EST Glomerular Filtration Rate 110 mL/min (>60); Est Glom Filt Rate - Afr Amer 133 mL/min (>60); Estimated Creatinine Clearance 62.71 ml/min; Glucose 105 mg/dL (74-106); Potassium 4.3 mmol/L (3.5-5.1); Sodium Level 141 mmol/L (136-145)
[2019-03-26 07:34] VITALS: PULSE 95; RESP 16; O2SAT 96
[2019-03-26] MEDS: Ipratropium/Albuterol Sulfate 3 ML AMPUL.NEB INHALATION (07:34)
--- NOTE | 2019-03-26 07:48 | PCM.PN.SRG ---
Patient Problems: Active and Suspected Problems SBO (small bowel obstruction) (Acute) Subjective: Patient passing flatus, denies any abdominal pain, tolerated full liquids yesterday. - Physical Exam General: Alert, Oriented x3, Cooperative, No apparent distress Lungs: Normal air movement Cardiovascular: Regular rate Abdomen: Soft, Non Tender, Non-Distended, - - Incision clean dry and intact op sites Extremities: No cyanosis, No edema Vital Signs Temp Pulse Resp BP Pulse Ox 98.2 F 94 18 155/82 H 95 03/26/19 03:14 03/26/19 03:14 03/26/19 03:14 03/26/19 03:14 03/26/19 03:14 Oxygen Flow Rate (L/min) 2 Oxygen Delivery Method Room Air Weight: 182 lb 15.739 oz Body Mass Index (BMI) 37.1 Intake and Output for Last 24 Hours 03/24/19 03/25/19 03/26/19 23:59 23:59 23:59 Intake Total 2652 / 2652 1483 / 1483 1530 / 1530 Output Total 1130 / 1130 800 / 800 200 / 200 Balance 1522 / 1522 683 / 683 1330 / 1330 Laboratory Tests Past 24 Hrs 03/26/19 03/26/19 06:15 06:15 WBC 6.9 RBC 3.26 L Hgb 9.7 L Hct 31.2 L MCV 95.7 MCH 29.8 MCHC 31.1 L RDW 14.6 RDW Differential 50.7 H Plt Count 85 L MPV 10.5 Immature Gran % (Auto) 0.300 Neut % (Auto) 75.6 H Lymph % (Auto) 13.6 L [place] % (Auto) 9.5 Eos % (Auto) 0.9 Baso % (Auto) 0.1 Absolute Neuts (auto) 5.2 Absolute Lymphs (auto) 0.94 Total Counted Not Reportable Sodium 141 Potassium 4.3 Chloride 114 H Carbon Dioxide 20.0 L Anion Gap 7 BUN 21 H Creatinine 0.57 Estim Creat Clear Calc 62.71 Est GFR (MDRD) Af Amer 133 Est GFR (MDRD) Non-Af 110 BUN/Creatinine Ratio 37.0 H Glucose 105 Calcium 8.1 L Medical Necessity - Tobacco Use Smoking Status: Never smoker Tobacco Use: Non-smoker Assessment/Plan All Active Problems Pneumonia (Acute) Sepsis (Acute) Shortness of breath (Acute) Acute congestive heart failure (Acute) SBO (small bowel obstruction) (Acute) 78-year-old female with small bowel obstruction postop day 2 status post diagnostic laparoscopy, release of small bowel obstruction 1. Patient tolerated full liquid diet advance to soft diet. Patient tolerates okay to DC home 2. Follow-up in office in about 2 weeks. Negin Strickland M.D. Pager: [phone] [facility] [address] [place] [address], [address] [place] [address] Office: [phone]
[2019-03-26 09:04] VITALS: BP 114/84; PULSE 95; RESP 18; TEMP 37.1; O2SAT 95
[2019-03-26] MEDS: Ensure Clear 120 ML Liquid PO (09:18)
--- NOTE | 2019-03-26 13:52 | DCINST_ITS ---
- Discharge Diagnoses Current Active Problems: Current Active and Chronic Problems SBO (small bowel obstruction) (Acute) Diastolic CHF (Chronic) You will use the following diet at home:: Regular Your food should be the consistency of: Regular Your liquids should be the consistency of: Regular/Thin Discharge Activity: Return to Normal Activity Call your doctor if you observe: Fever of 101 or Higher, Shortness of breath, Dizziness, Fainting spells, Swelling in the ankles, Chest pain, Increased palpitations (irregular heartbeat) Allergies/Adverse Reactions: Allergies No Known Allergies Allergy (Verified 03/22/19 14:57) Medications to take at Discharge Aspirin [Aspirin, Baby] 81 mg PO DAILY@0800 07/12/15 Atorvastatin Calcium [Lipitor] 80 mg PO QHS 07/12/15 Calcium Carb/Vitamin D [Caltrate-600 With Vit D Tab] 1 tab PO DAILY 07/12/15 Lisinopril [Zestril] 5 mg PO DAILY 07/12/15 Dibucaine [Nupercainal] 56.7 gm RC 4X/DAY PRN PRN #1 oint...g. 09/28/15 Albuterol Inhaler [Ventolin Hfa] 2 puff INHALATION Q4H PRN PRN #1 inhaler 10/31/18 Furosemide 40 mg PO BID 03/22/19 L.acidoph,Paracasei, B.lactis [Probiotic] 1 each PO DAILY 03/22/19 Potassium Chloride 20 meq PO BID 03/22/19 Primary Care Physician: Momo Carvajal Chi, MD [Primary Care Provider] - Please follow up with your Primary Care Physician in: 3-5 days Test Results: Test results from this visit will be discussed in further detail at your follow- up appointment, if applicable. Please Follow Up With: Negin Strickland MD When: 2 weeks
--- NOTE | 2019-03-26 13:53 | PCM.DC.SUM ---
Discharge Date and Diagnosis - Problem List Patient Problems: Active and Suspected Problems SBO (small bowel obstruction) (Acute) Date of Admission: 03/22/19 Date of Discharge: 03/26/19 - Primary Discharge Diagnosis Active and Suspected Problems SBO (small bowel obstruction) (Acute) - Secondary Discharge Diagnosis Chronic Problems HTN (hypertension) (Chronic) HLD (hyperlipidemia) (Chronic) Arthrogryposis (Chronic) Single kidney (Chronic) Hypoxia (Chronic) Morbid obesity with BMI of 40.0-44.9, adult (Chronic) Diastolic CHF (Chronic) Hospital Course and Treatment Imaging Results: CT Abd/Pel: IMPRESSION: Small bowel obstruction. Atherosclerosis. Degenerative changes. Grade 1 anterior spondylolisthesis of L4 on L5. Consults: Surgery Operations: - - Report of Operation Date of Procedure: 03/24/19 Pre-Operative Diagnosis: Small bowel obstruction Post-Operative Diagnosis: Same Surgery/Procedure Performed:: Diagnostic laparoscopy, release of small bowel obstruction public speaking teacher: Orlando Lorenz public speaking teacher: Kathy Grider Type of Anesthesia:: General/Supplemental Anesthesiologist: Jc Sauceda Special Medications: Cefotan 2 g IV x1 Specimen's removed: None Estimated Blood Loss (mL): < 10 cc Fluids Replaced: 700 cc Procedures: None Summary of Care Provided: Per HPI: The patient is a 78 y/o F w/ PMHx: HTN, HLD, Morbid Obesity, Chronic COPD, Chronic Diastolic CHF, Arthrogryposis w/ usage of BL LE braces and several BL UE and BL LE surgeries in her youth, Chronic Hypoxic Respiratory Failure, Single kidney s/p nephrectomy w/ CKD stage III who presents to the [facility] ED on 03/22/19 with history of ongoing severe, sharp, cramping, 10 out of 10, > BL upper quadrant as well as epigastric abdominal pain with notable bloated sensation, distention with nausea and emesis x 1 starting at jainism on day of ED presentation. Work-up in the ED included T 98.1, heart rate 78, BP 157/84, respiratory rate 22, 94% on room air, CBC with WBC 18, hemoglobin 12.8, platelet 415 with left shift, CMP with BUN/creatinine 26/0.48, alkaline phosphatase 123, lipase 170, troponin less than 0.015, UA unremarkable, chest x-ray with cardiomegaly with hazy opacity within the right mid and lower lung suggestive of an effusion with possible pulmonary venous congestion, gallbladder ultrasound with nonvisualization of the pancreas secondary to overlying bowel gas, CT abdomen pelvis with small bowel obstruction, atherosclerosis, degenerative changes, grade 1 anterior spondylolisthesis of L4 on L5 with unremarkable visualized lung bases and a grossly stable pericardial effusion. In the ED patient administered Zofran, morphine 2 mg IV x1 as well as morphine 4 mg IV x1 in addition the lidocaine for NG placement. General surgery consulted per ED. Hospital Course: 1. SBO status post exploratory [id number] female with arthrogryposis presenting with nausea, and vomiting as well as abdominal pain. She had a CT scan on admission which demonstrated small bowel obstruction. She had an NG tube placed with moderate output however she did not open up with flatus or BM after about 3 days therefore she was taken to the OR. During the expiratory laparoscopy did not find any adhesions causing obstruction but they did find a transition point where it did appear that the small bowel was kinked. They were able to run the small bowel and on the day of discharge she was having multiple episodes of flatus though still no bowel movement. She was able to have her NG removed and she tolerated a soft diet. We will plan for discharge today and follow-up as an outpatient with surgery in 2 weeks. 2. Chronic diastolic CHF/HTN/HLD-she was given gentle IV hydration while she was here, she did become a little bit fluid overloaded though she was not significantly short of breath and did not require oxygen. Because we advance her diet today her IV fluids were discontinued and I expressed to her to reinitiate her Lasix when she got home, if she needs to she can take an extra dose of Lasix to jump start diuresis. 3. Her other medical diagnoses were evaluated in her home medications were continued where appropriate This was discussed with her and her who both understood and are in agreement with the plan Patient Problems: Active and Suspected Problems SBO (small bowel obstruction) (Acute) Objective: General: Alert, Oriented x3, Cooperative, No apparent distress HEENT: Atraumatic, PERRLA, EOMI, Normocephalic Oral: Dry Mucosa Neck: Supple, No JVD Lungs: Clear to auscultation, Normal air movement, No rhonchi, No wheeze, No rales, Diminished Cardiovascular: Regular rate, Regular Rhythm, Normal S1, Normal S2, No murmurs Abdomen: Soft, Non-Distended, No Hepato-splenomegaly, tender around incisions Extremities: No edema, Capillary Refill Less than 3 Seconds Skin: No rashes, No breakdown, incisional dressings are clean dry and intact Neurological: Neuro grossly intact, Sensory exam intact to light touch and pain Psych/Mental Status: Normal Affect, Appropriate - Physical Exam Vital Signs Temp Pulse Resp BP Pulse Ox 98.7 F 95 18 114/84 H 95 03/26/19 09:04 03/26/19 09:04 03/26/19 09:04 03/26/19 09:04 03/26/19 09:04 Oxygen Flow Rate (L/min) 2 Oxygen Delivery Method Room Air Weight: 182 lb 15.739 oz Body Mass Index (BMI) 37.1 Intake and Output for Last 24 Hours 03/24/19 03/25/19 03/26/19 23:59 23:59 23:59 Intake Total 2652 / 2652 1483 / 1483 2075 / 2076 Output Total 1130 / 1130 800 / 800 200 / 200 Balance 1522 / 1522 683 / 683 1876 / 1876 Laboratory Tests Past 24 Hrs 03/26/19 03/26/19 06:15 06:15 WBC 6.9 RBC 3.26 L Hgb 9.7 L Hct 31.2 L MCV 95.7 MCH 29.8 MCHC 31.1 L RDW 14.6 RDW Differential 50.7 H Plt Count 85 L MPV 10.5 Immature Gran % (Auto) 0.300 Neut % (Auto) 75.6 H Lymph % (Auto) 13.6 L [place] % (Auto) 9.5 Eos % (Auto) 0.9 Baso % (Auto) 0.1 Absolute Neuts (auto) 5.2 Absolute Lymphs (auto) 0.94 Total Counted Not Reportable Sodium 141 Potassium 4.3 Chloride 114 H Carbon Dioxide 20.0 L Anion Gap 7 BUN 21 H Creatinine 0.57 Estim Creat Clear Calc 62.71 Est GFR (MDRD) Af Amer 133 Est GFR (MDRD) Non-Af 110 BUN/Creatinine Ratio 37.0 H Glucose 105 Calcium 8.1 L Discharge Activity: Return to Normal Activity Call your doctor if you observe: Fever of 101 or Higher, Shortness of breath, Dizziness, Fainting spells, Swelling in the ankles, Chest pain, Increased palpitations (irregular heartbeat) Home Medications: Medications to take at Discharge Aspirin [Aspirin, Baby] 81 mg PO DAILY@0800 07/12/15 Atorvastatin Calcium [Lipitor] 80 mg PO QHS 07/12/15 Calcium Carb/Vitamin D [Caltrate-600 With Vit D Tab] 1 tab PO DAILY 07/12/15 Lisinopril [Zestril] 5 mg PO DAILY 07/12/15 Dibucaine [Nupercainal] 56.7 gm RC 4X/DAY PRN PRN #1 oint...g. 09/28/15 Albuterol Inhaler [Ventolin Hfa] 2 puff INHALATION Q4H PRN PRN #1 inhaler 10/31/18 Furosemide 40 mg PO BID 03/22/19 L.acidoph,Paracasei, B.lactis [Probiotic] 1 each PO DAILY 03/22/19 Potassium Chloride 20 meq PO BID 03/22/19 Primary Care Physician: Momo Carvajal Chi, MD [Primary Care Provider] - Please follow up with your Primary Care Physician in: 3-5 days Please Follow Up With: Negin Strickland MD When: 2 weeks Disposition: Home Minutes spent on discharge:: 35 Patient Condition:: Stable Medical Necessity - Tobacco Use Smoking Status: Never smoker Tobacco Use: Non-smoker Meaningful Use Info Meaningful Use Diagnoses (Choose all that apply): None applicable Code Visit Inpatient E&M: 73972 Disch Hosp
--- NOTE | 2019-03-26 13:54 | CASEMGMT ---
RN Note: Medicare IMM explained to pt regarding calling [place] [facility] if wishing to contest discharge. Form explained, and pt's signed. No further questions and pt is agreeable to discharge today. Ceci ROMO RN ACM
[2019-03-26 14:33] VITALS: BP 144/86; PULSE 95; RESP 18; TEMP 36.4; O2SAT 96
--- NOTE | 2019-03-27 10:06 | CASEMGMT ---
DOLLY CISNEROS Discharge Follow-Up Phone Call. Lace: 15 Strata: 4 Discharge Date: 03/26/19 Adm Dx: SBO Call to pt to inquire about how she has been doing since being discharged from the hospital. Pt stated she has been doing well except for my voice from having those tubes down my throat. Pt stated she has no questions about the discharge instructions. Aware of appt that has been made with Dr Strickland on 04/09 and she is aware she is to call Dr Carvajal's office to be seen w/in 3-5 days from discharge. Pt denies having any questions/concerns. Advised to contact PCP or CM if she has any concerns/needs. Pt voices understanding. DOLLY CISNEROS thanked pt for choosing [facility]. Irasema ROMO RN, CM
== END 2019-03-26 14:34 | disposition home or self-care (01) | DRG 330 ==
LOC: ED 15:54 → MS3 20:40
PROVIDERS: Surgery; Admitting Provider Family Medicine; Emergency Provider Emergency Medicine; Family Provider Family Medicine Geriatric Medicine; PCP Family Medicine Geriatric Medicine; Referring Provider Family Medicine; Visit Provider Family Medicine
PROC: (CPT 49320; principal; 2019-03-24 13:40)
DX: K56.609 Unspecified intestinal obstruction, unspecified as to partial versus complete obstruction (principal); I13.0 Hypertensive heart and chronic kidney disease with heart failure and stage 1 through stage 4 chronic kidney disease, or unspecified chronic kidney disease; I50.32 Chronic diastolic (congestive) heart failure; E78.5 Hyperlipidemia, unspecified; Z90.5 Acquired absence of kidney; N18.3 Chronic kidney disease, stage 3 (moderate); Q68.8 Other specified congenital musculoskeletal deformities; E66.01 Morbid (severe) obesity due to excess calories; Z68.37 Body mass index [BMI] 37.0-37.9, adult; J44.9 Chronic obstructive pulmonary disease, unspecified
CPT/HCPCS: 36415; 71045; 74018; 74177; 74250; 76705; 80048; 80076; 81001; 83605; 83690; 84484; 85025; 93005; 94640; 94667; 94668; 97163; 97166; 97530; 97802; 99285; J7030; J7120; Q9967; A4216; C1751; J2405; J3490

== ENCOUNTER → 2019-04-21 14:49 | Outpatient (CLI) | payer MEDICARE, OTHER, SELFPAY ==
[2019-03-24 08:12] VITALS: BMI 37.1
[2019-04-21 15:50] LABS: Absolute Lymphocyte Count 1.45 X10^3/ul (0.83-4.51); Absolute Neutrophil Count 4.7 X10^3/uL (2.0-7.7); Basophil# 0.02 X10^3/uL; Basophil% 0.3 % (0-1); Eosinophil# 0.18 X10^3/uL; Eosinophils% 2.6 % (0-5); Hematocrit 35.9 % (37-47); Hemoglobin 11.6 g/dl (12.0-15.0); Lymphocyte # 1.45 X10^3/ul (4.0); Lymphocyte % 20.7 % (19-41); Mean Corp Hgb Conc 32.3 g/gl (32-36); Mean Corpuscular Hgb 30.2 pg (27.0-32.0); Mean Corpuscular Volume 93.5 fL (81-99); Mean Platelet Vol. 10.4 fl (6.2-12.0); Monocyte# 0.69 X10^3/uL; Monocyte% 9.8 % (0-10); Neutrophil # 4.67 X10^3/uL (2.7-7.7); Neutrophil % 66.5 % (47-70); Platelet Count 295 K/mm3 (150-450); RBC Distribution Width CV 14.4 % (11.6-14.6); RBC Distribution Width SD 49.2 fl (35.1-43.9); Red Blood Count 3.84 M/mm3 (4.2-5.4)
[2019-04-21 15:57] LABS: POSITIVE COUNT NO; POSITIVE DIFFERENTIAL NO; POSITIVE MORPHOLOGY NO
[2019-04-21 16:23] LABS: Vitamin D,25 Hydroxy 34.1 ng/mL (29.95-100.01)
[2019-04-21 16:24] LABS: ALB/GLOB Ratio 1.1 RATIO (0.9-2.4); AST(SGOT) 22 U/L (15-37); Alanine Aminotransfer ALT/SGPT 15 U/L (13-56); Albumin, Serum 3.4 g/dL (3.2-5.0); Alkaline Phosphatase 119 U/L (45-117); Anion Gap 4 (5-15); BUN 18 mg/dL (7-18); BUN/Creat Ratio 33.1 RATIO (10-20); Chloride 101 mmol/L (98-107); Creatinine, Serum 0.54 mg/dL (0.55-1.02); EST Glomerular Filtration Rate 116 mL/min (>60); Est Glom Filt Rate - Afr Amer 140 mL/min (>60); Globulin 3.1 g/dL (2.2-4.2); Glucose 96 mg/dL (74-106); Potassium 4.2 mmol/L (3.5-5.1); Protein, Total 6.5 g/dL (6.4-8.2); Sodium Level 134 mmol/L (136-145); Thyroid Stim Hormone (TSH) 1.29 uIU/mL (0.358-3.74)
== END ==
PROVIDERS: Family Provider Family Medicine Geriatric Medicine; PCP Family Medicine Geriatric Medicine; Visit Provider Family Medicine Geriatric Medicine
DX: I10 Essential (primary) hypertension (principal); E55.9 Vitamin D deficiency, unspecified
CPT/HCPCS: 36415; 80053; 82306; 84443; 85025

== ENCOUNTER → 2019-10-26 15:06 | Outpatient (CLI) | payer MEDICARE, OTHER, SELFPAY ==
[2019-03-24 08:12] VITALS: BMI 37.1
[2019-10-26 16:46] LABS: Absolute Lymphocyte Count 2.01 X10^3/uL (0.83-4.51); Absolute Neutrophil Count 3.2 X10^3/uL (2.0-7.7); Basophil# 0.05 X10^3/uL; Basophil% 0.8 % (0-1); Eosinophil# 0.33 X10^3/uL; Eosinophils% 5.5 % (0-5); Hematocrit 36.4 % (37-47); Hemoglobin 11.3 g/dL (12.0-15.0); Lymphocyte # 2.01 X10^3/ul (4.0); Lymphocyte % 33.3 % (19-41); Mean Corpuscular Hgb 30.4 pg (27.0-32.0); Mean Corpuscular Volume 97.8 fL (81-99); Mean Platelet Vol. 11.2 fl (6.2-12.0); Monocyte# 0.44 X10^3/uL; Monocyte% 7.3 % (0-10); NRBC Flagged by Analyzer 0 % (0-5); Neutrophil # 3.19 X10^3/uL (2.7-7.7); Neutrophil % 52.9 % (47-70); Platelet Count 294 K/mm3 (150-450); RBC Distribution Width SD 50.3 fl (35.1-43.9); Red Blood Count 3.72 M/mm3 (4.2-5.4)
[2019-10-26 17:04] LABS: ALB/GLOB Ratio 1.4 RATIO (0.9-2.4); AST(SGOT) 19 U/L (15-37); Alanine Aminotransfer ALT/SGPT 15 U/L (13-56); Albumin, Serum 3.6 g/dL (3.2-5.0); Alkaline Phosphatase 111 U/L (45-117); Anion Gap 8 (5-15); BUN 37 mg/dL (7-18); BUN/Creat Ratio 54.3 RATIO (10-20); Calcium,Total 8.9 mg/dL (8.5-10.1); Chloride 103 mmol/L (98-107); Creatinine, Serum 0.68 mg/dL (0.55-1.02); EST Glomerular Filtration Rate 89 mL/min (>60); Est Glom Filt Rate - Afr Amer 108 mL/min (>60); Globulin 2.6 g/dL (2.2-4.2); Glucose 100 mg/dL (74-106); Potassium 4.8 mmol/L (3.5-5.1); Protein, Total 6.2 g/dL (6.4-8.2); Sodium Level 142 mmol/L (136-145); Thyroid Stim Hormone (TSH) 1.55 uIU/mL (0.358-3.74)
[2019-10-26 17:13] LABS: Vitamin D,25 Hydroxy 32.8 ng/mL (29.95-100.01)
== END ==
PROVIDERS: Family Provider Family Medicine Geriatric Medicine; PCP Family Medicine Geriatric Medicine; Visit Provider Family Medicine Geriatric Medicine
DX: I10 Essential (primary) hypertension (principal); E55.9 Vitamin D deficiency, unspecified
CPT/HCPCS: 36415; 80053; 82306; 84443; 85025

== ENCOUNTER → 2020-04-25 14:37 | Outpatient (CLI) | payer MEDICARE, OTHER, SELFPAY ==
[2019-03-24 08:12] VITALS: BMI 37.1
[2020-04-25 16:57] LABS: Absolute Lymphocyte Count 1.72 X10^3/uL (0.83-4.51); Absolute Neutrophil Count 3.6 X10^3/uL (2.0-7.7); Basophil# 0.04 X10^3/uL; Basophil% 0.7 % (0-1); Eosinophil# 0.19 X10^3/uL; Eosinophils% 3.1 % (0-5); Hematocrit 36.3 % (37-47); Hemoglobin 11.4 g/dL (12.0-15.0); Lymphocyte # 1.72 X10^3/ul (4.0); Lymphocyte % 28.3 % (19-41); Mean Corp Hgb Conc 31.4 g/dL (32-36); Mean Corpuscular Hgb 30.1 pg (27.0-32.0); Mean Corpuscular Volume 95.8 fL (81-99); Mean Platelet Vol. 10.7 fl (6.2-12.0); Monocyte# 0.56 X10^3/uL; Monocyte% 9.2 % (0-10); NRBC Flagged by Analyzer 0 % (0-5); Neutrophil # 3.56 X10^3/uL (2.7-7.7); Neutrophil % 58.5 % (47-70); Platelet Count 303 K/mm3 (150-450); RBC Distribution Width CV 13.8 % (11.6-14.6); RBC Distribution Width SD 48.3 fl (35.1-43.9); Red Blood Count 3.79 M/mm3 (4.2-5.4); White Blood Count 6.1 K/mm3 (4.4-11.0)
[2020-04-25 17:20] LABS: ALB/GLOB Ratio 0.9 RATIO (0.9-2.4); AST(SGOT) 22 U/L (15-37); Alanine Aminotransfer ALT/SGPT 20 U/L (13-56); Albumin, Serum 3.2 g/dL (3.2-5.0); Alkaline Phosphatase 124 U/L (45-117); Anion Gap 8 (5-15); BUN 35 mg/dL (7-18); BUN/Creat Ratio 46.2 RATIO (10-20); Chloride 101 mmol/L (98-107); Creatinine, Serum 0.76 mg/dL (0.55-1.02); EST Glomerular Filtration Rate 79 mL/min (>60); Est Glom Filt Rate - Afr Amer 95 mL/min (>60); Globulin 3.4 g/dL (2.2-4.2); Glucose 111 mg/dL (74-106); Potassium 4.6 mmol/L (3.5-5.1); Protein, Total 6.6 g/dL (6.4-8.2); Sodium Level 139 mmol/L (136-145); Thyroid Stim Hormone (TSH) 1.74 uIU/mL (0.358-3.74)
== END ==
PROVIDERS: PCP Family Medicine Geriatric Medicine; Visit Provider Family Medicine Geriatric Medicine
DX: I10 Essential (primary) hypertension (principal); E55.9 Vitamin D deficiency, unspecified
CPT/HCPCS: 36415; 80053; 82306; 84443; 85025

== ENCOUNTER → 2020-10-27 13:34 | Outpatient (CLI) | payer MEDICARE, OTHER, SELFPAY ==
[2019-03-24 08:12] VITALS: BMI 37.1
[2020-10-27 16:31] LABS: Absolute Lymphocyte Count 1.78 X10^3/uL (0.83-4.51); Absolute Neutrophil Count 3.7 X10^3/uL (2.0-7.7); Basophil# 0.05 X10^3/uL; Basophil% 0.8 % (0-1); Eosinophil# 0.26 X10^3/uL; Eosinophils% 4.1 % (0-5); Hematocrit 38.1 % (37-47); Hemoglobin 12.1 g/dL (12.0-15.0); Lymphocyte # 1.78 X10^3/ul (4.0); Mean Corp Hgb Conc 31.8 g/dL (32-36); Mean Corpuscular Hgb 30.6 pg (27.0-32.0); Mean Corpuscular Volume 96.2 fL (81-99); Mean Platelet Vol. 10.9 fl (6.2-12.0); Monocyte# 0.57 X10^3/uL; NRBC Flagged by Analyzer 0 % (0-5); Neutrophil # 3.68 X10^3/uL (2.7-7.7); Neutrophil % 57.8 % (47-70); Platelet Count 353 K/mm3 (150-450); RBC Distribution Width CV 13.3 % (11.6-14.6); RBC Distribution Width SD 47.3 fl (35.1-43.9); Red Blood Count 3.96 M/mm3 (4.2-5.4); White Blood Count 6.4 K/mm3 (4.4-11.0)
[2020-10-27 16:49] LABS: Vitamin D,25 Hydroxy 29.1 ng/mL
[2020-10-27 16:56] LABS: AST(SGOT) 18 U/L (15-37); Alanine Aminotransfer ALT/SGPT 22 U/L (13-56); Albumin, Serum 3.6 g/dL (3.2-5.0); Alkaline Phosphatase 110 U/L (45-117); Anion Gap 6 (5-15); BUN 45 mg/dL (7-18); BUN/Creat Ratio 66.4 RATIO (10-20); Calcium,Total 9.4 mg/dL (8.5-10.1); Chloride 99 mmol/L (98-107); Creatinine, Serum 0.68 mg/dL (0.55-1.02); EST Glomerular Filtration Rate 89 mL/min (>60); Est Glom Filt Rate - Afr Amer 108 mL/min (>60); Globulin 3.5 g/dL (2.2-4.2); Glucose 90 mg/dL (74-106); Potassium 4.7 mmol/L (3.5-5.1); Protein, Total 7.1 g/dL (6.4-8.2); Sodium Level 135 mmol/L (136-145); Thyroid Stim Hormone (TSH) 1.91 uIU/mL (0.358-3.74)
== END ==
PROVIDERS: PCP Family Medicine Geriatric Medicine; Visit Provider Family Medicine Geriatric Medicine
DX: I10 Essential (primary) hypertension (principal); E55.9 Vitamin D deficiency, unspecified
CPT/HCPCS: 36415; 80053; 82306; 84443; 85025

== ENCOUNTER 2021-01-17 08:00 | Outpatient (RCR) | payer MEDICARE, OTHER, SELFPAY ==
[2019-03-24 08:12] VITALS: BMI 37.1
[2021-01-17] MEDS: COVID-19 VACC, MRNA(PFIZER)/PF 30 MCG/0.3 ML SYRINGE IM (13:04)
[2021-02-07] MEDS: COVID-19 VACC, MRNA(PFIZER)/PF 30 MCG/0.3 ML SYRINGE IM (12:45)
== END 2021-04-18 23:59 ==
LOC: IMMUN 08:00
PROVIDERS: PCP Family Medicine Geriatric Medicine; Visit Provider Family Medicine
DX: Z23 Encounter for immunization (principal)
CPT/HCPCS: 0001A; 0002A; 91300

== ENCOUNTER → 2021-04-26 13:16 | Outpatient (CLI) | payer MEDICARE, OTHER, SELFPAY ==
[2019-03-24 08:12] VITALS: BMI 37.1
[2021-04-26 16:50] LABS: Absolute Lymphocyte Count 1.54 X10^3/uL (0.83-4.51); Absolute Neutrophil Count 4.5 X10^3/uL (2.0-7.7); Basophil# 0.05 X10^3/uL; Basophil% 0.7 % (0-1); Eosinophils% 2.9 % (0-5); Hematocrit 38.2 % (37-47); Hemoglobin 11.8 g/dL (12.0-15.0); Lymphocyte # 1.54 X10^3/ul (0.83-4.51); Lymphocyte % 22.4 % (19-41); Mean Corp Hgb Conc 30.9 g/dL (32-36); Mean Corpuscular Volume 97.2 fL (81-99); Mean Platelet Vol. 11.4 fl (6.2-12.0); Monocyte# 0.62 X10^3/uL; NRBC Flagged by Analyzer 0 % (0-5); Neutrophil # 4.45 X10^3/uL (2.7-7.7); Neutrophil % 64.6 % (47-70); Platelet Count 326 K/mm3 (150-450); RBC Distribution Width CV 13.2 % (11.6-14.6); RBC Distribution Width SD 46.7 fl (35.1-43.9); Red Blood Count 3.93 M/mm3 (4.2-5.4); White Blood Count 6.9 K/mm3 (4.4-11.0)
[2021-04-26 16:54] LABS: Vitamin D,25 Hydroxy 38.9 ng/mL
[2021-04-26 17:09] LABS: AST(SGOT) 18 U/L (15-37); Alanine Aminotransfer ALT/SGPT 17 U/L (13-56); Albumin, Serum 3.3 g/dL (3.2-5.0); Alkaline Phosphatase 96 U/L (45-117); Anion Gap 7 (5-15); BUN 40 mg/dL (7-18); BUN/Creat Ratio 53.7 RATIO (10-20); Calcium,Total 8.7 mg/dL (8.5-10.1); Chloride 101 mmol/L (98-107); Creatinine, Serum 0.74 mg/dL (0.55-1.02); EST Glomerular Filtration Rate 80 mL/min (>60); Est Glom Filt Rate - Afr Amer 97 mL/min (>60); Globulin 3.3 g/dL (2.2-4.2); Glucose 89 mg/dL (74-106); Potassium 4.9 mmol/L (3.5-5.1); Protein, Total 6.6 g/dL (6.4-8.2); Sodium Level 136 mmol/L (136-145); Thyroid Stim Hormone (TSH) 1.56 uIU/mL (0.358-3.74)
== END ==
PROVIDERS: PCP Family Medicine Geriatric Medicine; Visit Provider Family Medicine Geriatric Medicine
DX: I10 Essential (primary) hypertension (principal); E55.9 Vitamin D deficiency, unspecified; E87.5 Hyperkalemia
CPT/HCPCS: 36415; 80053; 82306; 84443; 85025

== ENCOUNTER → 2021-06-21 11:46 | Outpatient (CLI) | payer MEDICARE, OTHER, SELFPAY ==
[2019-03-24 08:12] VITALS: BMI 37.1
== END ==
PROVIDERS: PCP Family Medicine Geriatric Medicine; Referring Provider Family Medicine Geriatric Medicine; Visit Provider Family Medicine Geriatric Medicine
DX: R06.89 Other abnormalities of breathing (principal)
CPT/HCPCS: 87426; 87804; 87807; C9803

== ENCOUNTER → 2021-08-28 13:31 | Outpatient (CLI) | payer MEDICARE, OTHER, SELFPAY | PROVIDERS: PCP Family Medicine Geriatric Medicine; Referring Provider Family Medicine Geriatric Medicine; Visit Provider Family Medicine Geriatric Medicine | DX: U07.1 COVID-19 (principal) | CPT/HCPCS: 87635; 87804; 87807; C9803; U0005; U0003 ==

== ENCOUNTER 2021-08-29 13:34 | Emergency (ER) | payer MEDICARE, OTHER, SELFPAY ==
[2021-08-29] VITALS (8 sets, daily range): BP systolic 91–119; BP diastolic 48–78; PULSE 72–90; RESP 18–28; TEMP 37.2; O2SAT 94–100; BMI 34.4
--- NOTE | 2021-08-29 13:55 | RAD_ITS ---
STUDY: X-RAY CHEST REASON FOR EXAM: Female, 80 years old. covid +, SOB TECHNIQUE: Single AP portable view of the chest. COMPARISON: Comparison is made with prior study dated 03/25/2019. FINDINGS: Focal infiltrate in the right upper lobe abutting the right minor fissure. Increased markings are also seen in the right middle lobe. Prominence of the left perihilar region. There is no demonstrated pleural abnormality. There is mild cardiac enlargement. Normal mediastinum and fouzia. Normal visualized pulmonary arteries. Normal visualized aortic arch and descending thoracic aorta. Normal visualized thoracic spine. There is degenerative osteoarthritis of the bilateral shoulders. There is no demonstrated abnormality of the visualized soft tissue structures of the upper abdomen. RAD/Chest 1 View (Portable) IMPRESSION: Bilateral pulmonary infiltrates more prominent in the right hemithorax. Electronically Signed: Angel Kyle MD at 14:16 EDT , Service support ,
--- NOTE | 2021-08-29 15:34 | EKG12_ITS ---
Test Reason : Blood Pressure : / mmHG Vent. Rate : 081 BPM Atrial Rate : 081 BPM P-R Int : 164 ms QRS Dur : 096 ms QT Int : 368 ms P-R-T Axes : 052 099 052 degrees QTc Int : 427 ms Normal sinus rhythm Normal ECG Confirmed by ALEKSANDAR PRYOR, BRETT ([id number]), editor school photograph SVEN HIGHTOWER ([id number]) on 08/30/2021 8:55:26 AM Referred By: SAMANTHA Confirmed By:BRETT HUERTAS MD
[2021-08-29] MEDS: dexAMETHasone 10 MG/ML Vial IV (16:12)
[2021-08-29 16:14] LABS: Absolute Lymphocyte Count 0.99 X10^3/uL (0.83-4.51); Absolute Neutrophil Count 5.1 X10^3/uL (2.0-7.7); Basophil# 0.01 X10^3/uL; Basophil% 0.2 % (0-1); Eosinophil# 0.01 X10^3/uL; Eosinophils% 0.2 % (0-5); Hematocrit 35.9 % (37-47); Hemoglobin 11.9 g/dL (12.0-15.0); Lymphocyte # 0.99 X10^3/ul (0.83-4.51); Lymphocyte % 15.2 % (19-41); Mean Corp Hgb Conc 33.1 g/dL (32-36); Mean Corpuscular Hgb 30.7 pg (27.0-32.0); Mean Corpuscular Volume 92.5 fL (81-99); Mean Platelet Vol. 9.8 fl (6.2-12.0); Monocyte# 0.37 X10^3/uL; Monocyte% 5.7 % (0-10); NRBC Flagged by Analyzer 0 % (0-5); Neutrophil # 5.09 X10^3/uL (2.7-7.7); Neutrophil % 78.2 % (47-70); Platelet Count 255 K/mm3 (150-450); RBC Distribution Width CV 13.8 % (11.6-14.6); RBC Distribution Width SD 47.2 fl (35.1-43.9); Red Blood Count 3.88 M/mm3 (4.2-5.4); White Blood Count 6.5 K/mm3 (4.4-11.0)
[2021-08-29 16:48] LABS: Anion Gap 8 (5-15); BUN 27 mg/dL (7-18); BUN/Creat Ratio 35.4 RATIO (10-20); Calcium,Total 8.2 mg/dL (8.5-10.1); Chloride 93 mmol/L (98-107); Creatinine, Serum 0.76 mg/dL (0.55-1.02); EST Glomerular Filtration Rate 78 mL/min (>60); Est Glom Filt Rate - Afr Amer 94 mL/min (>60); Estimated Creatinine Clearance 54.78 ml/min; Glucose 100 mg/dL (74-106); Magnesium 1.7 mg/dL (1.6-2.6); Potassium 4.6 mmol/L (3.5-5.1); Sodium Level 125 mmol/L (136-145); Troponin-I HS 10 pg/mL (3.0-54.0)
--- NOTE | 2021-08-29 20:03 | EDS_ITS ---
HPI History of Present Illness Chief Complaint: Shortness of Breath Narrative Narrative: Patient is a 80-year-old female with past medical history of heart failure who states she has had approximately 4 days of nasal congestion cough and shortness of breath. She went to her family doctor who swabbed her for RSV and influenza which were negative. However with her persistent shortness of breath she was concerned that she was developing pneumonia or even Covid and therefore presents to the hospital for evaluation [facility] Medical History (Updated 08/29/21 @ 20:[address] Bobo Garibay, ) Acute congestive heart failure Arthrogryposis Diastolic CHF HLD (hyperlipidemia) HTN (hypertension) Hypoxia Morbid obesity with BMI of 40.0-44.9, adult Pneumonia SBO (small bowel obstruction) Sepsis Shortness of breath Single kidney Home Medications aspirin 81 mg PO DAILY@0800 07/12/15 [History Last Taken 03/22/19] atorvastatin 80 mg PO QHS 07/12/15 [History Last Taken 03/21/19] calcium carbonate-vitamin D3 1 tab PO DAILY 07/12/15 [History Last Taken 03/22/19] lisinopril 5 mg PO DAILY 07/12/15 [History Last Taken 03/22/19] dibucaine 56.7 gm [place] 4X/DAY PRN PRN #1 oint...g. 09/28/15 [Rx Last Taken 11/02/18] albuterol sulfate 2 puff INHALATION Q4H PRN PRN #1 inhaler 10/31/18 [Rx Last Taken 11/02/18] L.acidoph, paracasei,B. lactis 1 ea PO DAILY 03/22/19 [History Last Taken 03/22/19] furosemide 40 mg PO BID 03/22/19 [History Last Taken 03/21/19] potassium chloride 20 meq PO BID 03/22/19 [History Last Taken 03/22/19] albuterol sulfate [Ventolin HFA] 1 - 2 puff INHALATION Q4H PRN PRN #1 device 08/29/21 [Rx Last Taken Unknown] albuterol sulfate [Ventolin HFA] 1 - 2 puff INHALATION Q4H PRN PRN #1 device 08/29/21 [Rx Last Taken Unknown] dexamethasone [Decadron] 6 mg PO DAILY #10 tab 08/29/21 [Rx Last Taken Unknown] dexamethasone [Decadron] 6 mg PO DAILY #10 tab 08/29/21 [Rx Last Taken Unknown] Allergy/AdvReac Type Severity Reaction Status Date / Time No Known Allergies Allergy Verified 08/29/21 13:35 Surgical History (Updated 04/09/19 @ 13:44 by Arcelia Estrada) H/O section History of orthopedic surgery S/p nephrectomy Status post laparoscopy Social History (Updated 04/10/19 @ 09:[address] Negin Strickland MD) Smoking Status: Never smoker ROS ROS ED Constitutional Constitutional ED: Reports chills, fever(s) and subjective ENT ENT ED: Reports rhinorrhea and sore throat Cardiovascular Cardiovascular: Denies chest pain Respiratory/Chest Respiratory/Chest: Reports cough and dyspnea Gastrointestinal Gastrointestinal: Reports nausea; Denies abdominal pain, diarrhea or vomiting Genitourinary Genitourinary ED: Denies dysuria Musculoskeletal Musculoskeletal: Reports myalgias Integumentary Denies rash Neurologic Neurologic: Denies headache(s) Hematologic/Lymphatic Hematologic/Lymphatic: Denies easy bleeding or easy bruising EXAM Physical Exam Const Vital Signs: 08/29/21 13:35 08/29/21 15:07 08/29/21 15:08 Temperature 98.9 F Temperature Source Temporal Pulse Rate 90 86 Respiratory Rate 28 H 28 H 28 H Respiratory Effort Short of Breath Respiratory Pattern Tachypnea Blood Pressure 111/78 119/69 Blood Pressure Mean 89 85 Pulse Ox 100 98 98 Oxygen Delivery Method Nasal Cannula Nasal Cannula Nasal Cannula Oxygen Flow Rate (L/min) 2 2 2 08/29/21 15:11 08/29/21 16:30 08/29/21 17:01 Temperature Temperature Source Pulse Rate 72 80 Respiratory Rate 22 H 20 H Respiratory Effort Respiratory Pattern Blood Pressure 116/63 Blood Pressure Mean 80 Pulse Ox 99 94 94 Oxygen Delivery Method Nasal Cannula Room Air Room Air Oxygen Flow Rate (L/min) 2 08/29/21 19:54 Temperature Temperature Source Pulse Rate 77 Respiratory Rate 18 Respiratory Effort Respiratory Pattern Blood Pressure 91/48 L Blood Pressure Mean 62 Pulse Ox 94 Oxygen Delivery Method Room Air Oxygen Flow Rate (L/min) Positive well nourished, well developed and obese General Appearance ED: well developed Nutritional Appearance: obese HEENT Reports moist mucous membranes HEENT Narrative: Cobblestoning the posterior pharynx consistent with sinus drainage but no airway edema or compromise Eyes PERRL and EOMs intact bilaterally Neck supple and no JVD Neck Narrative: Positive anterior cervical lymphadenopathy Chest Wall palpation of chest normal Resp Resp Narrative: Patient has mild tachypnea with diminished breath sounds and diffuse expiratory wheeze Cardio regular rate and regular rhythm GI normal to inspection, nondistended, normoactive bowel sounds, non-tender, non- distended and no masses Auscultation: normoactive bowel sounds Palpation: soft Extremity Extremity Narrative: 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 Her constellation of symptoms is concerning for Covid so a basic work-up with Covid swab were ordered. Labs revealed no clinically significant findings other than a positive Covid test. Chest x-ray showed pneumonia but with her positive Covid test this is Covid pneumonia. At this time she is not requiring supplemental oxygen and therefore does not need placed in the hospital. She will qualify for monoclonal antibody however based on her medical comorbidities and the fact that she is not requiring supplemental oxygen at this time Lab Data Attestation: I reviewed the patient's lab results. Labs: Laboratory Results - last 24 hr 08/29/21 08/29/21 16:05 16:05 WBC 6.5 RBC 3.88 L Hgb 11.9 L Hct 35.9 L MCV 92.5 MCH 30.7 MCHC 33.1 RDW Std Deviation 47.2 H RDW Coeff of Sorin 13.8 Plt Count 255 MPV 9.8 Immature Gran % (Auto) 0.500 Neut % (Auto) 78.2 H Lymph % (Auto) 15.2 L [place] % (Auto) 5.7 Eos % (Auto) 0.2 Baso % (Auto) 0.2 Absolute Neuts (auto) 5.1 Absolute Lymphs (auto) 0.99 Nucleated RBC % 0 Sodium 125 L Potassium 4.6 Chloride 93 L Carbon Dioxide 24.0 Anion Gap 8 BUN 27 H Creatinine 0.76 Estim Creat Clear Calc 54.78 Est GFR (MDRD) Af Amer 94 Est GFR (MDRD) Non-Af 78 BUN/Creatinine Ratio 35.4 H Glucose 100 Calcium 8.2 L Magnesium 1.7 Troponin I High Sens 10 Radiography Diagnostic Testing: Clinical Impression(s) from Imaging Studies Chest X-Ray 08/29/21 13:55 IMPRESSION: Bilateral pulmonary infiltrates more prominent in the right hemithorax. Electronically Signed: Angel Kyle MD at 14:16 EDT , Service support , Discharge Plan Triage Chief Complaint: Shortness of Breath ED Provider: Bobo Garibay Dx/Rx/DC Orders Clinical Impression: Pneumonia due to 2019 novel coronavirus Instructions: Coronavirus Disease 2019 (COVID-19): Caring for Yourself or Others Prescriptions: New dexamethasone [Decadron] 6 mg tablet 6 mg PO DAILY Qty: 10 RF: 0 albuterol sulfate [Ventolin HFA] 90 mcg/actuation HFA aerosol inhaler 1 - 2 puff inhalation Q4H PRN PRN (Reason: Wheezing) Qty: 1 RF: 0 dexamethasone [Decadron] 6 mg tablet 6 mg PO DAILY Qty: 10 RF: 0 albuterol sulfate [Ventolin HFA] 90 mcg/actuation HFA aerosol inhaler 1 - 2 puff inhalation Q4H PRN PRN (Reason: Wheezing) Qty: 1 RF: 0 No Action dibucaine 56.7 GM ointment 56.7 gm NH 4X/DAY PRN PRN (Reason: anal pain) Qty: 1 RF: 2 albuterol sulfate 1 INHALER inhaler 2 puff inhalation Q4H PRN PRN (Reason: Shortness Of Breath) Qty: 1 RF: 0 potassium chloride 10 MEQ tablet extended release 20 meq PO BID RF: 0 L.acidoph, paracasei,B. lactis 1 EACH capsule 1 ea PO DAILY RF: 0 furosemide 40 MG tablet 40 mg PO BID RF: 0 atorvastatin 80 MG tablet 80 mg PO QHS RF: 0 aspirin 81 MG tablet,chewable 81 mg PO DAILY@0800 RF: 0 lisinopril 5 MG tablet 5 mg PO DAILY RF: 0 calcium carbonate-vitamin D3 1 TAB tablet 1 tab PO DAILY RF: 0 Primary Care Provider: Momo Carvajal Chi Referrals: Momo Carvajal Chi, MD [Primary Care Provider] - Disposition Disposition: Home, Self Care
== END 2021-08-29 20:41 | disposition home or self-care (01) ==
PROVIDERS: Emergency Provider Emergency Medicine; PCP Family Medicine Geriatric Medicine
DX: U07.1 COVID-19 (principal); J12.82 Pneumonia due to coronavirus disease 2019; I11.0 Hypertensive heart disease with heart failure; I50.30 Unspecified diastolic (congestive) heart failure; E78.5 Hyperlipidemia, unspecified; Q68.8 Other specified congenital musculoskeletal deformities; E66.01 Morbid (severe) obesity due to excess calories; Z68.41 Body mass index [BMI] 40.0-44.9, adult; Z79.82 Long term (current) use of aspirin; Z79.899 Other long term (current) drug therapy; Z90.5 Acquired absence of kidney
CPT/HCPCS: 71045; 80048; 83735; 84484; 85025; 87426; 93005; 94640; 94760; 96374; 99285; A4216

== ENCOUNTER 2021-08-30 15:45 | Outpatient (CLI) | payer MEDICARE, OTHER, SELFPAY ==
[2021-08-30] MEDS: 0.9% Saline Lock 10 ML Syringe IV (16:28)
[2021-08-30 16:29] VITALS: BP 106/46; PULSE 77; RESP 16; TEMP 36.8; O2SAT 100; BMI 37.6
[2021-08-30 17:02] VITALS: BP 136/54; PULSE 76; RESP 16; TEMP 37.1; O2SAT 100
[2021-08-30 17:55] VITALS: BP 110/45; PULSE 73; RESP 16; TEMP 36.7; O2SAT 100
== END 2021-08-30 18:12 | disposition home or self-care (01) ==
LOC: MS3OUT 15:45 → MS3 15:46
PROVIDERS: PCP Family Medicine Geriatric Medicine; Referring Provider Nurse Practitioner Adult Health; Visit Provider Nurse Practitioner Adult Health
DX: Z23 Encounter for immunization (principal); U07.1 COVID-19
CPT/HCPCS: J7050; M0243; A4216; Q0244

== ENCOUNTER 2021-09-11 05:18 | Inpatient (IN) | payer MEDICARE, OTHER, SELFPAY ==
[2021-09-11] VITALS (14 sets, daily range): BP systolic 85–107; BP diastolic 36–77; PULSE 82–107; RESP 18–25; TEMP 36.6–37.1; O2SAT 95–98; BMI 38.0; BMI 36.5
--- NOTE | 2021-09-11 05:43 | EKG12_ITS ---
Test Reason : SOB Blood Pressure : / mmHG Vent. Rate : 094 BPM Atrial Rate : 094 BPM P-R Int : 182 ms QRS Dur : 060 ms QT Int : 308 ms P-R-T Axes : 027 048 077 degrees QTc Int : 385 ms Sinus rhythm with Fusion complexes Low voltage QRS Nonspecific ST and T wave abnormality Abnormal ECG Confirmed by JASON PRYOR, BREANA ([id number]), movie editor ROSANA NIETO ([id number]) on 09/13/2021 8:18:30 AM Referred By: CHIQUI Confirmed By:BREANA GOMEZ MD
--- NOTE | 2021-09-11 05:43 | RAD_ITS ---
STUDY: X-RAY CHEST REASON FOR EXAM: Female, 80 years old. SOB TECHNIQUE: Single AP portable view of the chest. COMPARISON: Comparison is made with prior study dated 08/29/2021. FINDINGS: EKG electrodes are seen. Persistent bilateral perihilar infiltrates worse on the right side. There has been mild improvement as compared to prior study. Hyperinflation. There is no demonstrated pleural abnormality. Normal size heart. Normal mediastinum and fouzia. Normal visualized pulmonary arteries. There is atherosclerotic calcification of the aortic arch with tortuosity. Normal visualized thoracic spine. There is degenerative osteoarthritis of the bilateral shoulders. There is no demonstrated abnormality of the visualized soft tissue structures of the upper abdomen. RAD/Chest 1 View IMPRESSION: Persistent bilateral perihilar infiltrates worse on the right side although there has been improvement as compared to prior study. Electronically Signed: Angel Kyle MD at 9:45 EDT , Service support ,
--- NOTE | 2021-09-11 05:59 | EDS_ITS ---
HPI History of Present Illness Chief Complaint: Shortness of Breath Informant: patient Onset/Context/Timing Onset: Weeks (1) Context: Gradual Onset Timing: Continuous Quality: Numbness Location: Bilateral lower extremities Worsened by: Nothing Relieved by: Nothing Narrative Narrative: Patient presents with numbness in her legs that has been constant for the past week. Patient was seen here last week and was worked up for Covid. Patient states she has numbness in her lower legs. Patient states nothing makes it better nothing makes it worse. Patient admits to some subjective chills and shortness of breath. Patient denies any cough. Patient denies any chest pain. Patient denies any nausea or vomiting. Patient denies any headaches. [facility] Medical History (Updated 09/11/21 @ 08:[address] Jc Hernandez, ) Acute congestive heart failure Arthrogryposis Diastolic CHF HLD (hyperlipidemia) HTN (hypertension) Hypoxia Morbid obesity with BMI of 40.0-44.9, adult Pneumonia SBO (small bowel obstruction) Sepsis Shortness of breath Single kidney Home Medications aspirin 81 mg PO DAILY@0800 07/12/15 [History Last Taken 03/22/19] calcium carbonate-vitamin D3 1 tab PO DAILY 07/12/15 [History Last Taken 03/22/19] lisinopril 5 mg PO DAILY 07/12/15 [History Last Taken 03/22/19] dibucaine 56.7 g AL 4X/DAY PRN PRN #1 oint...g. 09/28/15 [Rx Last Taken 11/02/18] albuterol sulfate 2 puff INHALATION Q4H PRN PRN #1 inhaler 10/31/18 [Rx Last Taken 11/02/18] L.acidoph, paracasei,B. lactis 1 ea PO DAILY 03/22/19 [History Last Taken 03/11 12/30] furosemide 40 mg PO BID 03/22/19 [History Last Taken 08/29/21] potassium chloride 20 meq PO BID 03/22/19 [History Last Taken 03/22/19] albuterol sulfate [Ventolin HFA] 1 - 2 puff INHALATION Q4H PRN PRN #1 device 08/29/21 [Rx Last Taken Unknown] dexamethasone [Decadron] 6 mg PO DAILY #10 tab 08/29/21 [Rx Last Taken Unknown] Allergy/AdvReac Type Severity Reaction Status Date / Time No Known Allergies Allergy Verified 08/30/21 09:55 Surgical History H/O section History of orthopedic surgery S/p nephrectomy Status post laparoscopy Social History Smoking Status: Never smoker ROS ROS ED Constitutional Constitutional ED: Reports chills and subjective; Denies fever(s) Eyes Eyes: Denies blurry vision or change in vision ENT ENT ED: Denies rhinorrhea or sore throat Cardiovascular Cardiovascular: Denies chest pain or palpitations Respiratory/Chest Respiratory/Chest: Reports dyspnea; Denies cough Gastrointestinal Gastrointestinal: Denies nausea or vomiting Genitourinary Genitourinary ED: Denies dysuria or hematuria Musculoskeletal Musculoskeletal: Denies back pain or neck pain Integumentary Denies abscess or rash Neurologic Neurologic: Reports paresthesias RLE and LLE; Denies headache(s) or weakness Allergic/Immunologic Allergic/Immunologic ED: Denies mouth swelling or urticaria EXAM Physical Exam Const Vital Signs: 09/11/21 05:21 09/11/21 05:29 09/11/21 06:05 Temperature 97.9 F Temperature Source Oral Pulse Rate 88 100 Respiratory Rate 18 25 H Respiratory Effort Normal Non-Labored Respiratory Depth Normal Respiratory Pattern Normal Blood Pressure 98/42 L 92/36 L Blood Pressure Mean 60 54 Pulse Ox 98 98 Oxygen Delivery Method Room Air Room Air 09/11/21 06:15 09/11/21 06:56 09/11/21 08:14 Temperature 97.8 F Temperature Source Oral Pulse Rate 102 H 88 107 H Respiratory Rate 18 18 18 Respiratory Effort Respiratory Depth Respiratory Pattern Blood Pressure 89/77 L 105/49 L 102/43 L Blood Pressure Mean 81 67 62 Pulse Ox 97 97 96 Oxygen Delivery Method Room Air Room Air Room Air Positive well nourished, well developed and obese General Appearance ED: well developed Nutritional Appearance: obese HEENT Reports moist mucous membranes Eyes PERRL and EOMs intact bilaterally Neck supple and no JVD Resp normal respiratory effort and clear to auscultation bilaterally Cardio regular rate and regular rhythm GI normal to inspection, nondistended, normoactive bowel sounds and non-tender Palpation: soft Extremity General Extremety ED: Negative for edema or tenderness General Extremity: Negative for edema Neuro oriented x3 and CN's II-XII intact bilaterally Neuro Narrative: There is some decreased sensation to light touch in the lower legs bilaterally. Sensation to light touch is intact in the feet bilaterally. Capillary refill is less than 2 seconds in all digits. Sensorium / Orientation: alert Psych mental status grossly normal MDM MDM MDM Narrative Medical decision making narrative: Patient was given IV fluids. EKG was obtained. On my interpretation, it showed a normal sinus rhythm with a rate of 94 with frequent ectopic beats. AL interval, QRS interval, and QTc intervals were all normal. [place] was normal. There are nonspecific ST-T wave changes. CBC shows a mild leukocytosis of 12.1. Hemoglobin was 11.6 hematocrit was 34.7. Comprehensive metabolic profile shows sodium of 128 and chloride of 93. BUN was 54 and creatinine was 1.25. These were increased from previous results on 08/29/2021. Lactate was normal. Portable 1 view chest x-ray was obtained. On my interpretation, lung tran are clear. There is normal cardiac silhouette. Bony thorax is normal. There is no acute process noted. Radiologist also interpreted the x-ray and agrees. Case was discussed with the hospitalist. She recommended obtaining a PCR Covid test. This was ordered. She will admit the patient to her service for observation. Patient and family understood and were agreeable with the plan. All questions were answered. Lab Data Attestation: I reviewed the patient's lab results. Labs: Laboratory Results - last 24 hr 09/11/21 09/11/21 09/11/21 05:54 05:54 05:54 WBC 12.1 H RBC 3.80 L Hgb 11.6 L Hct 34.7 L MCV 91.3 MCH 30.5 MCHC 33.4 RDW Std Deviation 44.6 H RDW Coeff of Sorin 13.2 Plt Count 381 MPV 10.4 Immature Gran % (Auto) 1.300 H Neut % (Auto) 69.4 Lymph % (Auto) 17.2 L [place] % (Auto) 11.6 H Eos % (Auto) 0.4 Baso % (Auto) 0.1 Absolute Neuts (auto) 8.4 H Absolute Lymphs (auto) 2.08 Nucleated RBC % 0 Sodium 128 L Potassium 4.5 Chloride 93 L Carbon Dioxide 26.0 Anion Gap 9 BUN 54 H Creatinine 1.25 H Estim Creat Clear Calc 48.25 Est GFR (MDRD) Af Amer 53 L Est GFR (MDRD) Non-Af 44 L BUN/Creatinine Ratio 43.2 H Glucose 84 Lactic Acid 0.8 Calcium 7.9 L Total Bilirubin 0.60 AST 13 L ALT 14 Alkaline Phosphatase 69 Troponin I High Sens 10 Total Protein 5.6 L Albumin 2.6 L Globulin 3.0 Albumin/Globulin Ratio 0.9 Radiography Chest X-Ray - ED: 1 View, Read by ED Physician, Read by Radiologist and Normal EKG Initial EKG: Attestation: I personally reviewed and interpreted this EKG as follows: Interpretation: Sinus Rhythm (94 with frequent ectopics) and Non-Specific ST Changes Prior EKG tracings: available for review Prior: Unchanged (08/29/2021) Treatment and Re-Evaluation Vital Sign Attestation:: Vital signs were reviewed prior to admission. They are stable. Discharge Plan Triage Chief Complaint: Shortness of Breath ED Provider: Jc Hernandez Dx/Rx/DC Orders Clinical Impression: Dyspnea, Acute kidney injury Prescriptions: No Action dibucaine 56.7 GM ointment 56.7 g AL 4X/DAY PRN PRN (Reason: anal pain) Qty: 1 RF: 2 albuterol sulfate 1 INHALER inhaler 2 puff inhalation Q4H PRN PRN (Reason: Shortness Of Breath) Qty: 1 RF: 0 potassium chloride 10 MEQ tablet extended release 20 meq PO BID RF: 0 L.acidoph, paracasei,B. lactis 1 EACH capsule 1 ea PO DAILY RF: 0 furosemide 40 MG tablet 40 mg PO BID RF: 0 dexamethasone [Decadron] 6 mg tablet 6 mg PO DAILY Qty: 10 RF: 0 albuterol sulfate [Ventolin HFA] 90 mcg/actuation HFA aerosol inhaler 1 - 2 puff inhalation Q4H PRN PRN (Reason: Wheezing) Qty: 1 RF: 0 aspirin 81 MG tablet,chewable 81 mg PO DAILY@0800 RF: 0 lisinopril 5 MG tablet 5 mg PO DAILY RF: 0 calcium carbonate-vitamin D3 1 TAB tablet 1 tab PO DAILY RF: 0 Primary Care Provider: Momo Carvajal Chi Referrals: Mmoo Carvajal Chi, MD [Primary Care Provider] - Disposition Disposition: Acute Care Hospital [facility]
[2021-09-11 06:29] LABS: Absolute Lymphocyte Count 2.08 X10^3/uL (0.83-4.51); Absolute Neutrophil Count 8.4 X10^3/uL (2.0-7.7); Basophil# 0.01 X10^3/uL; Basophil% 0.1 % (0-1); Eosinophil# 0.05 X10^3/uL; Eosinophils% 0.4 % (0-5); Hematocrit 34.7 % (37-47); Hemoglobin 11.6 g/dL (12.0-15.0); Lymphocyte # 2.08 X10^3/ul (0.83-4.51); Lymphocyte % 17.2 % (19-41); Mean Corp Hgb Conc 33.4 g/dL (32-36); Mean Corpuscular Hgb 30.5 pg (27.0-32.0); Mean Corpuscular Volume 91.3 fL (81-99); Mean Platelet Vol. 10.4 fl (6.2-12.0); Monocyte% 11.6 % (0-10); NRBC Flagged by Analyzer 0 % (0-5); Neutrophil # 8.38 X10^3/uL (2.7-7.7); Neutrophil % 69.4 % (47-70); Platelet Count 381 K/mm3 (150-450); RBC Distribution Width CV 13.2 % (11.6-14.6); RBC Distribution Width SD 44.6 fl (35.1-43.9); White Blood Count 12.1 K/mm3 (4.4-11.0)
[2021-09-11 06:41] LABS: ALB/GLOB Ratio 0.9 RATIO (0.9-2.4); AST(SGOT) 13 U/L (15-37); Alanine Aminotransfer ALT/SGPT 14 U/L (13-56); Albumin, Serum 2.6 g/dL (3.2-5.0); Alkaline Phosphatase 69 U/L (45-117); Anion Gap 9 (5-15); BUN 54 mg/dL (7-18); BUN/Creat Ratio 43.2 RATIO (10-20); Calcium,Total 7.9 mg/dL (8.5-10.1); Chloride 93 mmol/L (98-107); Creatinine, Serum 1.25 mg/dL (0.55-1.02); EST Glomerular Filtration Rate 44 mL/min (>60); Est Glom Filt Rate - Afr Amer 53 mL/min (>60); Estimated Creatinine Clearance 48.25 ml/min; Glucose 84 mg/dL (74-106); Lactic Acid 0.8 mmol/L (0.4-1.9); Potassium 4.5 mmol/L (3.5-5.1); Protein, Total 5.6 g/dL (6.4-8.2); Sodium Level 128 mmol/L (136-145); Troponin-I HS 10 pg/mL (3.0-54.0)
--- NOTE | 2021-09-11 08:22 | HP.PCM.HOS_ITS ---
HPI - General General Date of Admission: 09/11/21 HPI Narrative ABRAN SAENZ, is a 80 F with an extensive PMH as outlined who presents with a complaint of shortness of breath and lower extremity numbness. She was diagnosed with covid on 08/29/2021, though she apparently told the ER doctor she tested negative then. She said her shortness of breath gradually worsened so she came in to the ED. She denied any fever or chills, cough, chest pain, palpitations, dizziness, nausea or vomiting. Review of systems is otherwise negative. She has not been eatiing or drinking well. In the ED, vitals were temp of 98.1F, with UT of 106, BP of 85/47, which responded to fluids and RR of 20. CBC showed hb of 11.6, wbc of 12.1, platelets of 381. BMp showed sodium of 128 with chloride of 93 and Cr of 1.25. and potassium of 4.5. CXR showed per my read, bilateral infiltrates, more increased in the right. She is being admitted to be managed for CYNTHIA and covid 19 infection. Her repeat covid antigen test was negative this time, and I requested that [facility] ED does a PCR test as patient tested positive for covid on 08/29/2021 and her symptoms fit in with that of covid. [facility] Medical History Acute congestive heart failure Arthrogryposis Diastolic CHF Hearing loss, left Hearing loss, right HLD (hyperlipidemia) HTN (hypertension) Hypoxia Kidney disease Morbid obesity with BMI of 40.0-44.9, adult Non-smoker Pneumonia SBO (small bowel obstruction) Sepsis Shortness of breath Single kidney Wears hearing aid in both ears Home Medications aspirin 81 mg PO DAILY@0800 07/12/15 [History Last Taken 09/10/21 20:00] calcium carbonate-vitamin D3 2 tab PO DAILY 07/12/15 [History Last Taken 09/10/21] lisinopril 5 mg PO DAILY 07/12/15 [History Last Taken 09/10/21] dibucaine 56.7 g UT 4X/DAY PRN PRN #1 oint...g. 09/28/15 [Rx Last Taken 09/10/21] albuterol sulfate 2 puff INHALATION Q4H PRN PRN #1 inhaler 10/31/18 [Rx Last Taken 09/10/21 20:00] L.acidoph, paracasei,B. lactis 1 ea PO DAILY 03/22/19 [History Last Taken 09/10/21] furosemide 40 mg PO BID 03/22/19 [History Last Taken 09/10/21] potassium chloride 20 meq PO BID 03/22/19 [History Last Taken 09/10/21] albuterol sulfate [Ventolin HFA] 1 - 2 puff INHALATION Q4H PRN PRN #1 device 08/29/21 [Rx Last Taken Unknown] Allergy/AdvReac Type Severity Reaction Status Date / Time No Known Allergies Allergy Verified 08/30/21 09:55 Surgical History H/O section History of orthopedic surgery S/p nephrectomy Status post laparoscopy Social History Smoking Status: Never smoker ROS Constitutional Constitutional: Reports anorexia, fatigue, malaise and weakness; Denies chills or fever(s) Cardiovascular Cardiovascular: Reports dyspnea on exertion; Denies chest pain, edema, lightheadedness, orthopnea or palpitations Respiratory/Chest Respiratory/Chest: Reports cough, dyspnea, shortness of breath at rest and shortness of breath with exertion; Denies excessive phlegm production or productive cough Gastrointestinal Gastrointestinal: Reports abdominal pain, constipation, diarrhea, nausea and vomiting Genitourinary Genitourinary: Denies burning urination or dysuria Musculoskeletal Musculoskeletal: Denies arthralgias Neurologic Neurologic: Reports numbness; Denies confusion, dizziness or focal weakness Vital Signs Vital Signs Vital Signs: 09/11/21 05:21 09/11/21 05:29 09/11/21 06:05 Temperature 97.9 F Temperature Source Oral Pulse Rate 88 100 Respiratory Rate 18 25 H Respiratory Effort Normal Non-Labored Respiratory Depth Normal Respiratory Pattern Normal Blood Pressure 98/42 L 92/36 L Blood Pressure Mean 60 54 Pulse Ox 98 98 Oxygen Delivery Method Room Air Room Air 09/11/21 06:15 09/11/21 06:56 09/11/21 08:14 Temperature 97.8 F Temperature Source Oral Pulse Rate 102 H 88 107 H Respiratory Rate 18 18 18 Respiratory Effort Respiratory Depth Respiratory Pattern Blood Pressure 89/77 L 105/49 L 102/43 L Blood Pressure Mean 81 67 62 Pulse Ox 97 97 96 Oxygen Delivery Method Room Air Room Air Room Air Weight Weight: 181 lb 10.574 oz Body Mass Index (BMI) 38.0 Physical Exam Const alert, oriented x3 and no apparent distress General Appearance: cooperative HEENT normocephalic and head/scalp atraumatic HEENT Narrative: dry oral mucosal membranes Eyes PERRL, EOMs intact bilaterally and conjunctivae normal Neck no lymphadenopathy Resp Resp Narrative: diminished breath sounds bibasally, no wheezes or crackles. on 2L of oxygen by nasal canula Cardio regular rate, regular rhythm, S1 normal heart sound, S2 normal heart sound and no murmurs GI normal to inspection, nondistended, normoactive bowel sounds, soft to palpation, non-tender and non-distended Extremity normal to inspection, full ROM and no clubbing, cyanosis or edema Peripheral Pulses: Yes pulses 2+ throughout Skin no rashes or lesions noted Neuro oriented x3, CN's II-XII intact bilaterally and moves all extremities Sensorium / Orientation: awake and alert Psych affect normal Results Lab / Micro Data Result Diagrams: 09/11/21 05:54 09/11/21 05:54 Labs: Laboratory Results - last 24 hr 09/11/21 05:54: Sodium 128 L, Potassium 4.5, Chloride 93 L, Carbon Dioxide 26.0, Anion Gap 9, BUN 54 H, Creatinine 1.25 H, Estim Creat Clear Calc 48.25, Est GFR (MDRD) Af Amer 53 L, Est GFR (MDRD) Non-Af 44 L, BUN/Creatinine Ratio 43.2 H, Glucose 84, Calcium 7.9 L, Total Bilirubin 0.60, AST 13 L, ALT 14, Alkaline Phosphatase 69, Troponin I High Sens 10, Total Protein 5.6 L, Albumin 2.6 L, Globulin 3.0, Albumin/Globulin Ratio 0.9 09/11/21 05:54: WBC 12.1 H, RBC 3.80 L, Hgb 11.6 L, Hct 34.7 L, MCV 91.3, MCH 30.5, MCHC 33.4, RDW Std Deviation 44.6 H, RDW Coeff of Sorin 13.2, Plt Count 381, MPV 10.4, Immature Gran % (Auto) 1.300 H, Neut % (Auto) 69.4, Lymph % (Auto) 17.2 L, [place] % (Auto) 11.6 H, Eos % (Auto) 0.4, Baso % (Auto) 0.1, Absolute Neuts (auto) 8.4 H, Absolute Lymphs (auto) 2.08, Nucleated RBC % 0 09/11/21 05:54: Lactic Acid 0.8 Micro: Microbiology 09/11/21 06:09 Nasal Secretion SARS-CoV-2 Antigen (Rapid) - Final Assessment & Plan Assessment/Plan (1) COVID-19: PLAN: #COVID 19 pneumonia * admit to med surg * COVID PCR test was positive, though antigen test was negative. Patient initially tested positive for COVID on 09/08/2021. * start patient on decadron and remdesivir. * breathing treatment with bronchodilators. * titrate oxygen as needed to maintain sats >90% * #CYNTHIA * Creatinine is up to 1.25 from baseline of 0.7 * Hydrate gently with IV fluids and trend creatinine. Hold Lasix. * Has only a solitary kidney. had 1 kidney taken out in 1988. She is unclear of reason why. * #hyperlipidemia; on statin #hypertension: on lisinopril. #History of Arthrogryposis: Stable. #HFpEF: not in exacerbation. Hold lasix due to mild CYNTHIA DVT prophylaxis; lovenox Code status: full code * Patient and counseled extensively about different types of CODE STATUS including full code, DNR CCA and DNR CCA. Patient elects to be full code. * Total [id number] time 16 minutes. Charges/Coding Visit Charges Inpatient E&M: 14941 Init Hosp L3 Procedures Hospitalists Procedures: 01099 Advncd Care Plan 30 Min
[2021-09-11] MEDS: 0.9% Normal Saline 1,000 ML 125 ML IV ×2 (12:19→22:07)
--- NOTE | 2021-09-11 14:40 | CASEMGMT ---
DOLLY CISNEROS assessment: Initial transition planning/care coordination assessment. DOLLY CISNEROS introduced self and role at [facility], pt voices understanding and consents to assessment. Pt's is at bedside to assist with pt care. Pt is on room air in no distress. Pt is A/Ox4 and answers all questions appropriately. Pt states has COVID but is not symptomatic. Pt states was vaccinated and also had monoclonal antibodies. Pt states no concerns getting resources/groceries once home. Care providers, pharmacy, and demographics verified/updated. Presentation: Post COVID, quarantine ended on , pt c/o increased SOB Admitting dx: COVID PCP: Wei Specialists: Pt states none currently. Preferred Pharmacy: [facility] Insurance: [facility] A/B, [employer] Prescription Benefit: [employer] Living Will/HPOA: Pt has LW/HPOA and is aware that they are not on file at [facility]. Pt's , Sebas Knight, is HPOA. LNOK: Sebas Knight, ; Saúl Negro, daughter Living Arrangements: Pt lives with in 1 story home with no steps in and states assists with ADL's. Pt states normally able to ambulate some but not currently d/t numbness in her legs. Transportation: Pt states drives and states no transportation concerns. DME/HHC: Pt states has the following DME: leg braces, raised toilet seat, w/c, and electric scooter. Pt states only sponge bathes. Pt states no hx of HHC but has been to [facility] in the past. Pt states she may need to go back to [facility] at discharge and Libby SHIRLEY aware, voices understanding. Pt states concerns with going home at discharge. Pt is retired. Pt does not smoke cigarettes or drink ETOH. Pt voices no further concerns/needs. CM to follow therapy evals and any further discharge planning/needs. Advised pt to ask for CM if any further questions/concerns/needs arise, voices understanding. Pt Goal: Home Plan: TBD, pending therapy evals, clinical course. SStaten DOLLY CISNEROS
[2021-09-11] MEDS: dexAMETHasone 4 MG Tablet 6 MG PO (15:32)
--- NOTE | 2021-09-11 15:32 | CHAPLAIN ---
Type of Pastoral Visit ___ Initial Visit ___ Follow-up Visit ___ On-call Visit ___ General Patient Visit ___ Spiritual Assessment ___ Family Conference ___ Bereavement ___ Rapid Response ___ Code Blue _x__ Other (describe below) Pastoral Care Referral From _x__ Patient ___ Family ___ Nurse ___ Physician ___ Fan Runner ___ Business Performance Analyst ___ Other (describe below) Sacrament/Intervention _x__ Active listening ___ Anointing ___ Mu-Ism ___ Bereavement ___ Communion ___ Dulce exploration ___ ___ Life review _x__ Prayer ___ Reconciliation ___ Sacrament of Sick ___ Supportive presence ___ Wedding ___ Other (describe below) Pastoral Comments patient answers phone as call made into COVID room; pt spouse is with her at this time; pt states that her head is a little foggy but doing better; pt welcomes prayer; pt is member of [employer] and has good support there; no other concerns at this time
[2021-09-11] MEDS: Remdesivir 200 MG IV x1 (Inital Dose)-All Patients 125 MG IV (15:33)
[2021-09-11] MEDS: Furosemide 40 MG Tablet PO (18:11)
[2021-09-11] MEDS: Potassium Chloride Oral Tablet 10 MEQ 20 MEQ PO (18:12)
[2021-09-11 18:52] LABS: Alkaline Phosphatase 58 U/L (45-117)
[2021-09-11 18:58] LABS: AST(SGOT) 17 U/L (15-37); Alanine Aminotransfer ALT/SGPT 15 U/L (13-56); Albumin, Serum 2.3 g/dL (3.2-5.0); Alkaline Phosphatase 58 U/L (45-117); Bilirubin, Direct 0.12 mg/dL (0.00-0.30); CPK Total, Creatine Kinase 33 U/L (26-192); Globulin 2.7 g/dL (2.2-4.2); LDH 268 U/L (84-246)
[2021-09-12] VITALS (11 sets, daily range): BP systolic 91–110; BP diastolic 54–78; PULSE 79–105; RESP 18; TEMP 36.7–37.1; O2SAT 95–100
[2021-09-12 09:43] LABS: Absolute Lymphocyte Count 0.67 X10^3/uL (0.83-4.51); Absolute Neutrophil Count 6.9 X10^3/uL (2.0-7.7); Basophil# 0.01 X10^3/uL; Basophil% 0.1 % (0-1); Hematocrit 33.1 % (37-47); Hemoglobin 10.8 g/dL (12.0-15.0); Lymphocyte # 0.67 X10^3/ul (0.83-4.51); Lymphocyte % 8.4 % (19-41); Mean Corp Hgb Conc 32.6 g/dL (32-36); Mean Corpuscular Hgb 30.1 pg (27.0-32.0); Mean Corpuscular Volume 92.2 fL (81-99); Mean Platelet Vol. 10.1 fl (6.2-12.0); Monocyte# 0.36 X10^3/uL; Monocyte% 4.5 % (0-10); NRBC Flagged by Analyzer 0 % (0-5); Platelet Count 301 K/mm3 (150-450); RBC Distribution Width CV 13.4 % (11.6-14.6); RBC Distribution Width SD 45.7 fl (35.1-43.9); Red Blood Count 3.59 M/mm3 (4.2-5.4)
[2021-09-12 10:04] LABS: Prothrombin Time (Protime)PT. 12.9 SECONDS (11.7-14.9)
[2021-09-12 10:05] LABS: Fibrinogen 238 mg/dl (203-444)
[2021-09-12 10:24] LABS: Procalcitonin 0.09 ng/mL (0.00-0.09)
[2021-09-12 10:26] LABS: ALB/GLOB Ratio 0.8 RATIO (0.9-2.4); AST(SGOT) 17 U/L (15-37); Alanine Aminotransfer ALT/SGPT 13 U/L (13-56); Albumin, Serum 2.2 g/dL (3.2-5.0); Alkaline Phosphatase 54 U/L (45-117); Anion Gap 8 (5-15); BUN 31 mg/dL (7-18); Calcium,Total 7.5 mg/dL (8.5-10.1); Chloride 106 mmol/L (98-107); Creatinine, Serum 0.55 mg/dL (0.55-1.02); EST Glomerular Filtration Rate 112 mL/min (>60); Est Glom Filt Rate - Afr Amer 136 mL/min (>60); Estimated Creatinine Clearance 57.97 ml/min; Globulin 2.8 g/dL (2.2-4.2); Glucose 88 mg/dL (74-106); Potassium 3.7 mmol/L (3.5-5.1); Sodium Level 138 mmol/L (136-145)
[2021-09-12 10:29] LABS: D-Dimer Quantitative (DVT/PE) 1.87 FEU/ug/m (0.27-0.49)
[2021-09-12] MEDS: 0.9% Saline Lock 10 ML Syringe IV (11:09)
[2021-09-12] MEDS: Enoxaparin 40 MG/0.4 ML Syringe SC (11:13)
[2021-09-12] MEDS: Furosemide 40 MG Tablet PO ×2 (11:13→16:05)
[2021-09-12] MEDS: Calcium Carb/Vitamin D 1 TABLET Tablet 2 TABLET PO (11:13)
[2021-09-12] MEDS: Aspirin 81 MG TAB.CHEW PO (11:14)
[2021-09-12] MEDS: dexAMETHasone 4 MG Tablet 6 MG PO (11:14)
[2021-09-12] MEDS: Lisinopril 5 MG Tablet PO (11:14)
[2021-09-12] MEDS: Potassium Chloride Oral Tablet 10 MEQ 20 MEQ PO ×2 (11:15→16:05)
--- NOTE | 2021-09-12 14:30 | CT_ITS ---
STUDY: CTA CHEST REASON FOR EXAM: Female, 80 years old. Elevated D dimer RADIATION DOSAGE (If Supplied By Facility): CTDIvol = ( 10.96 ) mGy, DLP = ( 475.50 ) mGycm TECHNIQUE: The examination was performed with the intravenous administration of IV 100mL Isovue-370. Post-processing of the angiographic images was performed, with multiplanar reformation and 3D reconstruction. Individualized dose optimization techniques were used for this CT. COMPARISON: Comparison is made with prior chest radiograph dated 09/11/2021. FINDINGS: Normal enhancement of the main pulmonary artery and right and left pulmonary arteries. Normal enhancement of the bilateral peripheral pulmonary arteries. There is no demonstrated pulmonary embolism. There is atherosclerotic calcification of the aortic arch with tortuosity. There is no demonstrated aortic dissection. Normal heart and pericardium. Normal mediastinum. Normal hilar regions. Normal visualized trachea and bronchi. The lungs are well expanded. Focal area of groundglass appearance in the posterior aspect of the right upper lobe. Groundglass appearance seen in the right lower as well as narrowing and focal tenderness in the posterior mediastinum and there Normal pleura. Normal chest wall structures. There are degenerative changes of thoracic spine. Normal visualized upper abdomen. CT/CTA Chest W/WO Contrast IMPRESSION: No evidence of pulmonary embolism. Patchy areas of groundglass appearance in the right lung with evidence of scarring of bronchiectasis in the posterior medial segment of the left lower lobe. Electronically Signed: Angel Kyle MD at 15:12 EDT , Service support ,
--- NOTE | 2021-09-12 16:37 | PN.HOSP_ITS ---
Subjective Subjective Patient seen and examined. She was upset today because she had not kept n.p.o. since yesterday on account of failing speech therapy evaluation. Speech is due to evaluate her today and decide about a swallow study. She feels well otherwise and review of systems otherwise negative. She has remained hemodynamically stable. Objective Data Objective Data Vital Signs: Vital Signs Temp Pulse Resp BP Pulse Ox 98.1 F 105 H 18 91/78 96 09/12/21 15:50 09/12/21 15:50 09/12/21 15:50 09/12/21 15:50 09/12/21 15:50 Oxygen Delivery Method Room Air Weight: 174 lb 9.698 oz Body Mass Index (BMI) 36.5 Intake & Output: Intake and Output for Last 24 Hours 09/10/21 09/11/21 09/12/21 23:59 23:59 23:59 Intake Total 2386.25 / 2386.25 1083.33 / 1083.33 Output Total 200 / 200 1700 / 1700 Balance 2186.25 / 2186.25 -616.67 / -616.67 Medical Nutrition Assessment Dietitian: Malnutrition Criteria Met Start: 09/11/21 13:41 Freq: Status: Active Protocol: Document 09/11/21 13:41 LEESA (Rec: 09/11/21 13:41 LEESA [id number]) Nutrition Malnutrition Evidence of Malnutrition Exists Yes Malnutrition (severe): Acute Illness/Injury Evidenced By Suboptimal Energy Intake ( Severe),Weight Loss (Severe) Clinical Problem Acute Disease or Injury Related Malnutrition Etiology related to acute illness ( COVID), unable to taste food, and difficulty swallowing so inability consume adequate nutrition to meet est nutritional needs Signs/Symptoms as evidenced by NPO until MBS able to be completed and <50% po intake and 3% wt loss in past 2 weeks Status Active Problem Recommendation Dietitian Recommendations/Changes Rec nutrition support if pt NPO duration expected >3 days As medically able, rec diet as tolerated to Cardiac/Sodium restricted d/t pmhx Rec oral nutritional supplement w/ medpass once po diet resumes d/t s/s of malnutrition Lab / Micro Data Result Diagrams: 09/12/21 09:28 09/12/21 09:28 Labs: Laboratory Results - last 24 hr 09/11/21 14:55: Total Bilirubin 0.50, Direct Bilirubin 0.12, AST 17, ALT 15, Alkaline Phosphatase 58, Lactate Dehydrogenase 268 H, Total Creatine Kinase 33, Total Protein 5.0 L, Albumin 2.3 L, Globulin 2.7 09/11/21 14:55: Alkaline Phosphatase 58 09/12/21 08:34: D-Dimer Quant (PE/DVT) 1.87 H* 09/12/21 09:28: WBC 8.0, RBC 3.59 L, Hgb 10.8 L, Hct 33.1 L, MCV 92.2, MCH 30.1, MCHC 32.6, RDW Std Deviation 45.7 H, RDW Coeff of Sorin 13.4, Plt Count 301, MPV 10.1, Immature Gran % (Auto) 1.000 H, Neut % (Auto) 86.0 H, Lymph % (Auto) 8.4 L , [place] % (Auto) 4.5, Eos % (Auto) 0.0, Baso % (Auto) 0.1, Absolute Neuts (auto) 6.9, Absolute Lymphs (auto) 0.67 L, Nucleated RBC % 0 09/12/21 09:28: Sodium 138, Potassium 3.7, Chloride 106, Carbon Dioxide 24.0, Anion Gap 8, BUN 31 H, Creatinine 0.55, Estim Creat Clear Calc 57.97, Est GFR (MDRD) Af Amer 136, Est GFR (MDRD) Non-Af 112, BUN/Creatinine Ratio 56.0 H, Glucose 88, Calcium 7.5 L, Total Bilirubin 0.30, AST 17, ALT 13, Alkaline Phosphatase 54, Total Protein 5.0 L, Albumin 2.2 L, Globulin 2.8, Albumin/Globulin Ratio 0.8 L 09/12/21 09:28: PT 12.9, INR 1.0, Fibrinogen 238 09/12/21 09:28: Procalcitonin 0.09 Micro: Microbiology 09/11/21 06:09 Nasal Secretion SARS-CoV-2 Antigen (Rapid) - Final Radiography Diagnostic Testing: Radiology Impression Chest CTA 09/12/21 14:30 IMPRESSION: No evidence of pulmonary embolism. Patchy areas of groundglass appearance in the right lung with evidence of scarring of bronchiectasis in the posterior medial segment of the left lower lobe. Electronically Signed: Angel Kyle MD at 15:12 EDT , Service support , Physical Exam Const alert, oriented x3 and no apparent distress General Appearance: cooperative Exam Limitations: no limitations HEENT normocephalic and head/scalp atraumatic Head and Scalp: normocephalic Eyes PERRL, EOMs intact bilaterally and conjunctivae normal Neck no lymphadenopathy Resp Resp Narrative: diminished breath sounds bibasally, no wheezes or crackles. on room air. Cardio regular rate, regular rhythm, S1 normal heart sound, S2 normal heart sound and no murmurs GI normal to inspection, nondistended, normoactive bowel sounds, soft to palpation, non-tender and non-distended Extremity normal to inspection, full ROM and no clubbing, cyanosis or edema Peripheral Pulses: Yes pulses 2+ throughout Skin no rashes or lesions noted Neuro oriented x3, CN's II-XII intact bilaterally and moves all extremities Sensorium / Orientation: awake and alert Psych affect normal Assessment & Plan Assessment/Plan (1) COVID-19: PLAN: #COVID 19 pneumonia * start patient on decadron and remdesivir. * breathing treatment with bronchodilators. * titrate oxygen as needed to maintain sats >90% * now on room air * #CYNTHIA * Resolved. * Creatinine has trended down to 0.55 today. * Has only a solitary kidney. had 1 kidney taken out in 1988. She is unclear of reason why. * #Dysphagia * She failed speech evaluation yesterday. * She was restless today and started on modified diet, with easy to chew foods and thin liquids. * #hyperlipidemia; on statin #hypertension: on lisinopril. #History of Arthrogryposis: Stable. #HFpEF: not in exacerbation. lasix held due to CYNTHIA. Will resume DVT prophylaxis; lovenox Code status: full code * Charges/Coding Visit Charges OBSV E&M: 52381 Subsequent observation care L2
[2021-09-13] VITALS (9 sets, daily range): BP systolic 98–103; BP diastolic 60–84; PULSE 71–94; RESP 16–18; TEMP 36.6–36.8; O2SAT 98–99
[2021-09-13 07:56] LABS: Absolute Lymphocyte Count 0.71 X10^3/uL (0.83-4.51); Absolute Neutrophil Count 7.6 X10^3/uL (2.0-7.7); Basophil# 0.01 X10^3/uL; Basophil% 0.1 % (0-1); Hematocrit 31.9 % (37-47); Hemoglobin 10.5 g/dL (12.0-15.0); Lymphocyte # 0.71 X10^3/ul (0.83-4.51); Lymphocyte % 7.9 % (19-41); Mean Corp Hgb Conc 32.9 g/dL (32-36); Mean Corpuscular Hgb 30.5 pg (27.0-32.0); Mean Corpuscular Volume 92.7 fL (81-99); Mean Platelet Vol. 10.6 fl (6.2-12.0); Monocyte# 0.65 X10^3/uL; Monocyte% 7.2 % (0-10); NRBC Flagged by Analyzer 0 % (0-5); Neutrophil # 7.61 X10^3/uL (2.7-7.7); Neutrophil % 84.1 % (47-70); Platelet Count 250 K/mm3 (150-450); RBC Distribution Width CV 13.9 % (11.6-14.6); RBC Distribution Width SD 47.1 fl (35.1-43.9); Red Blood Count 3.44 M/mm3 (4.2-5.4)
[2021-09-13 08:24] LABS: Anion Gap 7 (5-15); BUN 33 mg/dL (7-18); BUN/Creat Ratio 53.1 RATIO (10-20); Calcium,Total 7.9 mg/dL (8.5-10.1); Chloride 104 mmol/L (98-107); Creatinine, Serum 0.62 mg/dL (0.55-1.02); EST Glomerular Filtration Rate 99 mL/min (>60); Est Glom Filt Rate - Afr Amer 119 mL/min (>60); Estimated Creatinine Clearance 57.97 ml/min; Glucose 114 mg/dL (74-106); Potassium 3.8 mmol/L (3.5-5.1); Sodium Level 136 mmol/L (136-145)
[2021-09-13] MEDS: Potassium Chloride Oral Tablet 10 MEQ 20 MEQ PO ×2 (08:44→16:15)
[2021-09-13] MEDS: Aspirin 81 MG TAB.CHEW PO (08:44)
[2021-09-13] MEDS: dexAMETHasone 4 MG Tablet 6 MG PO (08:56)
[2021-09-13] MEDS: Furosemide 40 MG Tablet PO ×2 (08:56→18:21)
[2021-09-13] MEDS: Calcium Carb/Vitamin D 1 TABLET Tablet 2 TABLET PO (08:56)
--- NOTE | 2021-09-13 10:10 | CASEMGMT ---
SW spoke with patient regarding discharge plan. Patient would like to go to [facility] for rehab. SW told her SW can try and if they cannot accept SW will give her a list of other facilities. SW faxed referral to [facility]. FERN also called [facility] and left a voice mail regarding referral. Korin George WET ROOM SUPERVISOR KAYKAY
[2021-09-13] MEDS: APIXABAN 5 MG TABLET PO (10:25)
--- NOTE | 2021-09-13 11:04 | CASEMGMT ---
came out of room and informed this RN CM that pt/ would now like [facility] instead of [facility]. Libby SHIRLEY aware, voices understanding. SStaten RN CM
--- NOTE | 2021-09-13 13:28 | CASEMGMT ---
RN BLAYNE told FERN that patient's came out of the room and said patient would like to go to [facility] instead of [facility]. FERN faxed referral to [facility] and also called Angelina. [facility] called FERN back and said they can take patient. FERN let Hortencia know that patient chose another facility. FERN received a call from Angelina at [facility] and they can take patient. FERN notified patient and let her know she will probably go today. Plan: d/c to [facility] under skilled level of care on a convalescent stay. Korin George BASKET WEAVER KAYKAY
--- NOTE | 2021-09-13 13:52 | DS.PCM_ITS ---
Providers Date of Admission: 09/11/21 Primary Care Physician: Dr. Momo Carvajal MD Reason For Visit: COVID 19 INFECTION Diagnosis Discharge Diagnosis (1) COVID-19: Status: Acute Code(s): U07.1 - COVID-19 Medications at Discharge Home Medications aspirin 81 mg PO DAILY@0800 07/12/15 calcium carbonate-vitamin D3 2 tab PO DAILY 07/12/15 lisinopril 5 mg PO DAILY 07/12/15 dibucaine 56.7 g ME 4X/DAY PRN PRN #1 oint...g. 09/28/15 albuterol sulfate 2 puff INHALATION Q4H PRN PRN #1 inhaler 10/31/18 L.acidoph, paracasei,B. lactis 1 ea PO DAILY 03/22/19 furosemide 40 mg PO BID 03/22/19 potassium chloride 20 meq PO BID 03/22/19 albuterol sulfate [Ventolin HFA] 1 - 2 puff INHALATION Q4H PRN PRN #1 device 08/29/21 apixaban [Eliquis] 2.5 mg PO BID #28 tab 09/13/21 Hospital Course Operations None Procedures None Summary of Care Provided Minutes Spent on Discharge: 45 Hospital Course: ABRAN SAENZ, is a 80 F with an extensive PMH as outlined who presents with a complaint of shortness of breath and lower extremity numbness. She was diagnosed with covid on 08/29/2021, though she apparently told the ER doctor she tested negative then. She said her shortness of breath gradually worsened so she came in to the ED. She denied any fever or chills, cough, chest pain, palpitations, dizziness, nausea or vomiting. Review of systems is otherwise negative. She has not been eatiing or drinking well. In the ED, vitals were temp of 98.1F, with ME of 106, BP of 85/47, which responded to fluids and RR of 20. CBC showed hb of 11.6, wbc of 12.1, platelets of 381. BMp showed sodium of 128 with chloride of 93 and Cr of 1.25. and potassium of 4.5. CXR vandana wed per my read, bilateral infiltrates, more increased in the right. She is being admitted to be managed for CYNTHIA and covid 19 infection. Her repeat covid antigen test was negative this time, and I requested that [facility] ED does a PCR test as patient tested positive for covid on 08/29/2021 and her symptoms fit in with that of covid. Covid PCR test done was positive. She was admitted and managed for COVID-19 pneumonia and mild CYNTHIA. She was hydrated with IV fluids and creatinine trended down to normal. Hospital course was complicated by dysphagia as she failed swallow evaluation. Speech therapy however reevaluated her and she was cleared for ED to chew foods with thin liquids. D-dimer was elevated at 3.87 so she had a CTA which was negative for PE. Patient remained stable. She requested to go to a long term facility. She was discharged to long term facility on 09/13/2021. She was discharged with a prescription for p.o. Eliquis 2.5 mg twice daily for 2 weeks for thromboprophylaxis in light of Covid infection. She is to follow-up with her primary care doctor in 1 to 2 weeks. Patient was seen and examined prior to discharge. was by her bedside. She had no active complaints. Review of systems otherwise negative. Labs and vitals reviewed. Medication reviewed and reconciled. Physical Exam Const alert, oriented x3 and no apparent distress General Appearance: cooperative Orientation / Consciousness: awake, oriented to person, oriented to place and oriented to time Exam Limitations: no limitations HEENT normocephalic and head/scalp atraumatic Eyes PERRL, EOMs intact bilaterally and conjunctivae normal Neck no lymphadenopathy Resp Resp Narrative: diminished breath sounds bibasally, no wheezes or crackles. on room air. Cardio regular rate, regular rhythm, S1 normal heart sound, S2 normal heart sound and no murmurs GI normal to inspection, nondistended, normoactive bowel sounds, soft to palpation, non-tender and non-distended Extremity normal to inspection, full ROM and no clubbing, cyanosis or edema Skin no rashes or lesions noted Neuro oriented x3, CN's II-XII intact bilaterally and moves all extremities Sensorium / Orientation: awake and alert Psych affect normal Medical Records Data Medical Nutrition Assessment Dietitian: Malnutrition Criteria Met Start: 09/11/21 13:41 Freq: Status: Active Protocol: Document 09/11/21 13:41 LEESA (Rec: 09/11/21 13:41 LEESA [id number]) Nutrition Malnutrition Evidence of Malnutrition Exists Yes Malnutrition (severe): Acute Illness/Injury Evidenced By Suboptimal Energy Intake ( Severe),Weight Loss (Severe) Clinical Problem Acute Disease or Injury Related Malnutrition Etiology related to acute illness ( COVID), unable to taste food, and difficulty swallowing so inability consume adequate nutrition to meet est nutritional needs Signs/Symptoms as evidenced by NPO until MBS able to be completed and <50% po intake and 3% wt loss in past 2 weeks Status Active Problem Recommendation Dietitian Recommendations/Changes Rec nutrition support if pt NPO duration expected >3 days As medically able, rec diet as tolerated to Cardiac/Sodium restricted d/t pmhx Rec oral nutritional supplement w/ medpass once po diet resumes d/t s/s of malnutrition Weight / BMI Weight Weight: 174 lb 9.698 oz Body Mass Index (BMI) 36.5 ABG / Lab / Microbiology Data Result Diagrams: 09/13/21 07:25 09/13/21 07:25 Laboratory: Laboratory Results - last 24 hr 09/13/21 07:25: WBC 9.0, RBC 3.44 L, Hgb 10.5 L, Hct 31.9 L, MCV 92.7, MCH 30.5, MCHC 32.9, RDW Std Deviation 47.1 H, RDW Coeff of Sorin 13.9, Plt Count 250, MPV 10.6, Immature Gran % (Auto) 0.700, Neut % (Auto) 84.1 H, Lymph % (Auto) 7.9 L, [place] % (Auto) 7.2, Eos % (Auto) 0.0, Baso % (Auto) 0.1, Absolute Neuts (auto) 7.6, Absolute Lymphs (auto) 0.71 L, Nucleated RBC % 0 09/13/21 07:25: Sodium 136, Potassium 3.8, Chloride 104, Carbon Dioxide 25.0, Anion Gap 7, BUN 33 H, Creatinine 0.62, Estim Creat Clear Calc 57.97, Est GFR (MDRD) Af Amer 119, Est GFR (MDRD) Non-Af 99, BUN/Creatinine Ratio 53.1 H, Glucose 114 H, Calcium 7.9 L Microbiology: Microbiology 09/11/21 06:09 Nasal Secretion SARS-CoV-2 Antigen (Rapid) - Final Radiography Diagnostic Testing: Radiology Impression Chest CTA 09/12/21 14:30 IMPRESSION: No evidence of pulmonary embolism. Patchy areas of groundglass appearance in the right lung with evidence of scarring of bronchiectasis in the posterior medial segment of the left lower lobe. Electronically Signed: Angel Kyle MD at 15:12 EDT , Service support , D/C Instructions Discharge Diet: Low fat / Low cholesterol and - (easy to chew meals with thin liquids.) Discharge Activity: Return to Normal Activity Weight Bearing Status: Weight bearing as tolerated Call your doctor if you observe: Fever of 101 or Higher, Shortness of breath, Swelling in the ankles and Increased palpitations (irregular heartbeat) Meaningful Use Info Meaningful Use Diagnoses (Choose all that apply): None applicable Discharge Plan Admission Admit Date/Time: 09/11/21 08:35 Primary Reason for Your Visit: COVID 19 infection Attending Provider: Libby Ascencio Primary Care Provider: Momo Carvajal Chi Instructions Patient Instructions: Coronavirus Disease 2019 (COVID-19): Overview Discharge Orders/Prescriptions Prescriptions: New Eliquis 2.5 mg tablet 2.5 mg PO BID Qty: 28 RF: 0 Continued dibucaine 56.7 GM ointment 56.7 g ME 4X/DAY PRN PRN (Reason: anal pain) Qty: 1 RF: 2 albuterol sulfate 1 INHALER inhaler 2 puff inhalation Q4H PRN PRN (Reason: Shortness Of Breath) Qty: 1 RF: 0 potassium chloride 10 MEQ tablet extended release 20 meq PO BID RF: 0 L.acidoph, paracasei,B. lactis 1 EACH capsule 1 ea PO DAILY RF: 0 furosemide 40 MG tablet 40 mg PO BID RF: 0 albuterol sulfate [Ventolin HFA] 90 mcg/actuation HFA aerosol inhaler 1 - 2 puff inhalation Q4H PRN PRN (Reason: Wheezing) Qty: 1 RF: 0 aspirin 81 MG tablet,chewable 81 mg PO DAILY@0800 RF: 0 lisinopril 5 MG tablet 5 mg PO DAILY RF: 0 calcium carbonate-vitamin D3 1 TAB tablet 2 tab PO DAILY RF: 0 Referrals / Follow Up: Momo Carvajal Chi, MD [Primary Care Provider] - Within 2 Weeks Disposition Disposition (needs filled in before D/C Order can be placed): [facility] Charges/Coding Visit Charges Inpatient E&M: 80360 Disch Hosp
--- NOTE | 2021-09-13 14:16 | TREXTCAR_ITS ---
Diet 09/12/21 16:48 Diet: Cardiac - Heart Healthy Food consistency:: Easy to Chew Liquid Consistency:: Regular/Thin Is pt able to select menu?: Yes Problem/Diagnosis (1) COVID-19: Status: Acute Allergies/Procedures Done in Hospital Allergies No Known Allergies Allergy (Verified 08/30/21 09:55) Type of Care/Length of Stay Estimated LOS: Convalescent Care Less Than 30 days Type of Care Needed: Skilled Rehab Potential: Fair Prognosis: Fair Additional Orders/Day of Discharge Day of Discharge: 09/13/21 Dietary and Speech Recommendations Dietitian Recommendations/Changes: Rec nutrition support if pt NPO duration expected >3 days As medically able, rec diet as tolerated to Cardiac/Sodium restricted d/t pmhx Rec oral nutritional supplement w/ medpass once po diet resumes d/t s/s of malnutrition Discharge Plan Admission Admit Date/Time: 09/11/21 08:35 Primary Reason for Your Visit: COVID 19 infection Attending Provider: Libby Ascencio Primary Care Provider: Momo Carvajal Chi Instructions Patient Instructions: Coronavirus Disease 2019 (COVID-19): Overview Discharge Orders/Prescriptions Prescriptions: New Eliquis 2.5 mg tablet 2.5 mg PO BID Qty: 28 RF: 0 Continued dibucaine 56.7 GM ointment 56.7 g IA 4X/DAY PRN PRN (Reason: anal pain) Qty: 1 RF: 2 albuterol sulfate 1 INHALER inhaler 2 puff inhalation Q4H PRN PRN (Reason: Shortness Of Breath) Qty: 1 RF: 0 potassium chloride 10 MEQ tablet extended release 20 meq PO BID RF: 0 L.acidoph, paracasei,B. lactis 1 EACH capsule 1 ea PO DAILY RF: 0 furosemide 40 MG tablet 40 mg PO BID RF: 0 albuterol sulfate [Ventolin HFA] 90 mcg/actuation HFA aerosol inhaler 1 - 2 puff inhalation Q4H PRN PRN (Reason: Wheezing) Qty: 1 RF: 0 aspirin 81 MG tablet,chewable 81 mg PO DAILY@0800 RF: 0 lisinopril 5 MG tablet 5 mg PO DAILY RF: 0 calcium carbonate-vitamin D3 1 TAB tablet 2 tab PO DAILY RF: 0 Referrals / Follow Up: Momo Carvajal Chi, MD [Primary Care Provider] - Within 2 Weeks Disposition Disposition (needs filled in before D/C Order can be placed): [facility]
--- NOTE | 2021-09-13 15:46 | PHA.DC.MR ---
Pharmacy Service has performed discharge medication reconciliation for this patient. The patient's discharge medication list was reviewed for discrepancies and discrepancies were resolved. Home Medications aspirin 81 mg PO DAILY@0800 07/12/15 calcium carbonate-vitamin D3 2 tab PO DAILY 07/12/15 lisinopril 5 mg PO DAILY 07/12/15 dibucaine 56.7 g AR 4X/DAY PRN PRN #1 oint...g. 09/28/15 albuterol sulfate 2 puff INHALATION Q4H PRN PRN #1 inhaler 10/31/18 L.acidoph, paracasei,B. lactis 1 ea PO DAILY 03/22/19 furosemide 40 mg PO BID 03/22/19 potassium chloride 20 meq PO BID 03/22/19 albuterol sulfate [Ventolin HFA] 1 - 2 puff INHALATION Q4H PRN PRN #1 device 08/29/21 apixaban [Eliquis] 2.5 mg PO BID #28 tab 09/13/21
--- NOTE | 2021-09-13 15:53 | CASEMGMT ---
Orders were faxed to [facility]. [facility] arranged for patient to get picked up at via cot. SW notified Lucy, patient, RN, and bilingual secretary. Convalescent completed on [facility]. Plan: d/c to [facility] at [facility] under skilled level of care on a convalescent stay. [facility] transported patient via cot. Korin George [employer] KAYKAY
--- NOTE | 2021-09-13 16:37 | NURSING ---
Report called to VINICIO [facility] at [phone].
== END 2021-09-13 19:51 | DRG 177 ==
LOC: ED 08:44 → PCU 08:56
PROVIDERS: Admitting Provider Student in an Organized Health Care Education/Training Program; Emergency Provider Emergency Medicine; PCP Family Medicine Geriatric Medicine; Visit Provider Student in an Organized Health Care Education/Training Program
DX: U07.1 COVID-19 (principal); J12.82 Pneumonia due to coronavirus disease 2019; E43 Unspecified severe protein-calorie malnutrition; N17.9 Acute kidney failure, unspecified; I50.32 Chronic diastolic (congestive) heart failure; I11.0 Hypertensive heart disease with heart failure; R13.10 Dysphagia, unspecified; R20.0 Anesthesia of skin; E78.5 Hyperlipidemia, unspecified; H91.93 Unspecified hearing loss, bilateral; Z68.36 Body mass index [BMI] 36.0-36.9, adult; Q68.8 Other specified congenital musculoskeletal deformities; Z79.82 Long term (current) use of aspirin; Z79.899 Other long term (current) drug therapy; Z90.5 Acquired absence of kidney
CPT/HCPCS: 36415; 71045; 71275; 80048; 80053; 80076; 82550; 83605; 83615; 84075; 84145; 84484; 85025; 85379; 85384; 85610; 87426; 87635; 92526; 92610; 93005; 97110; 97162; 97166; 97530; 99285; J7030; J7040; J7050; Q9967; U0005; A4216; U0003

== ENCOUNTER 2021-10-02 11:03 | Inpatient (IN) | payer MEDICARE, OTHER, SELFPAY ==
[2021-10-02] VITALS (8 sets, daily range): BP systolic 105–117; BP diastolic 58–97; PULSE 94–110; RESP 16–18; TEMP 36.2–36.9; O2SAT 94–97; BMI 37.9; BMI 37.3
--- NOTE | 2021-10-02 11:10 | CT_ITS ---
STUDY: CT BRAIN WITHOUT CONTRAST REASON FOR EXAM: Female, 81 years old. neuro deficit RADIATION DOSAGE (If Supplied By Facility): CTDIvol = ( 44.99 ) mGy, DLP = ( ) mGycm TECHNIQUE: Transaxial CT imaging of the brain was performed without administration of intravenous contrast material. Individualized dose optimization techniques were used for this CT. COMPARISON: None. FINDINGS: There is cerebral atrophy with widening of the extra-axial spaces and ventricular dilatation. There are areas of decreased attenuation within the white matter tracts of the supratentorial brain, consistent with microvascular disease changes. There is no intracranial hemorrhage. There are no findings of an acute ischemic infarction. Left inferior orbital wall defect, likely secondary to chronic fracture is noted. Normal visualized paranasal sinuses. CT/Brain/Head without Contrast IMPRESSION: Chronic involutional changes of the brain. Electronically Signed: Marisabel De Los Santos MD at 12:46 EST Tel , Service support ,
--- NOTE | 2021-10-02 11:11 | EKG12_ITS ---
Test Reason : NEURO S\SX Blood Pressure : / mmHG Vent. Rate : 087 BPM Atrial Rate : 087 BPM P-R Int : 182 ms QRS Dur : 056 ms QT Int : 334 ms P-R-T Axes : 063 -12 080 degrees QTc Int : 401 ms Normal sinus rhythm Low voltage QRS Septal infarct , age undetermined Abnormal ECG Confirmed by ALEKSANDAR PRYOR, BRETT ([id number]), newspaper or periodical editor ROSANA NIETO ([id number]) on 10/06/2021 7:19:12 AM Referred By: DIRK Confirmed By:BRETT HUERTAS MD
--- NOTE | 2021-10-02 11:13 | EDS_ITS ---
HPI History of Present Illness Chief Complaint: Numb/Ting Informant: patient, family and EMS Onset/Context/Timing Onset: Month(s) (1, initial sx) Context: Gradual Onset Timing: Continuous Quality: paresthesias / partial numbness Location: initially RLE, now all over Current Severity: Severe Maximum Severity: Severe Worsened by: nothing Relieved by: nothing Associated Symptoms Associated Symptoms: weakness more than usual Narrative Narrative: Patient presents with worsening numbness all over. She states it started in her right lower extremity several weeks ago, frame fixer thinks about 1 month, it then progressed to the left lower extremity, and has slowly risen up her body to the point where it is all over. She states it also includes her back, arms. She has also become weak in her lower extremities especially. 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 She ambulates at baseline using braces for both of her legs, but now that she is having numbness and weakness in both of them, she is having significant difficulty with this, and is now only able to transfer on her own using the braces, and needs significant help in order to ambulate with them. She denies any headaches. She does have diarrhea and cannot remember how long it has been there. Also has been having some pain in her right posterolateral hip area, she thinks may be from laying on it. She denies any known wounds. Prior similar symptoms: No Recent Illness/Hospitalization: Yes [facility] Medical History Acute congestive heart failure Arthrogryposis COVID-19 Diastolic CHF Hearing loss, left Hearing loss, right HLD (hyperlipidemia) HTN (hypertension) Hypoxia Kidney disease Morbid obesity with BMI of 40.0-44.9, adult Non-smoker Pneumonia S/p nephrectomy SBO (small bowel obstruction) Sepsis Shortness of breath Single kidney Wears hearing aid in both ears Home Medications aspirin 81 mg PO DAILY@0800 07/12/15 [History Last Taken 09/10/21 20:00] calcium carbonate-vitamin D3 2 tab PO DAILY 07/12/15 [History Last Taken 09/10/21] lisinopril 5 mg PO DAILY 07/12/15 [History Last Taken 09/10/21] dibucaine 56.7 g KS 4X/DAY PRN PRN #1 oint...g. 09/28/15 [Rx Last Taken 09/10/21] L.acidoph, paracasei,B. lactis 1 ea PO DAILY 03/22/19 [History Last Taken 09/10/21] furosemide 40 mg PO BID 03/22/19 [History Last Taken 09/10/21] potassium chloride 10 meq PO 4X/DAY 03/22/19 [History Last Taken 09/10/21] albuterol sulfate [Ventolin HFA] 1 - 2 puff INHALATION Q4H PRN PRN #1 device 08/29/21 [Rx Last Taken Unknown] Allergy/AdvReac Type Severity Reaction Status Date / Time No Known Allergies Allergy Verified 10/02/21 11:04 Surgical History H/O section History of orthopedic surgery S/p nephrectomy Status post laparoscopy Social History Smoking Status: Never smoker ROS ROS ED Constitutional Constitutional ED: Denies chills or fever(s) Eyes Eyes: Denies change in vision or diplopia ENT ENT ED: Denies rhinorrhea or sore throat Cardiovascular Cardiovascular: Denies chest pain or palpitations Respiratory/Chest Respiratory/Chest: Denies cough or dyspnea Gastrointestinal Gastrointestinal: Reports diarrhea; Denies abdominal pain, nausea or vomiting Genitourinary Genitourinary ED: Denies dysuria or hematuria Musculoskeletal Musculoskeletal: Reports back pain; Denies neck pain Integumentary Denies abscess or rash Neurologic Neurologic: Reports as per HPI, paresthesias and weakness; Denies headache(s) Psychiatric Psychiatric: Denies anxiety or suicidal thoughts EXAM Physical Exam Const Vital Signs: 10/02/21 11:04 10/02/21 13:24 Temperature 98 F Temperature Source Oral Pulse Rate 94 97 Respiratory Rate 18 16 Blood Pressure 110/97 H 117/75 Blood Pressure Mean 101 89 Pulse Ox 94 97 Oxygen Delivery Method Room Air Room Air Positive well nourished, well developed and obese General Appearance ED: well developed and NAD Nutritional Appearance: obese HEENT Reports moist mucous membranes normocephalic and atraumatic Eyes PERRL and EOMs intact bilaterally Neck full ROM and supple Resp normal respiratory effort and clear to auscultation bilaterally Cardio regular rate, regular rhythm and no murmurs GI non-tender and non-distended Auscultation: normoactive bowel sounds Palpation: soft Back/Spine no CVA tenderness Back/Spine Narrative: Normal inspection of back, no midline tenderness. Mildly tender at the right SI joint/buttock area without any signs of wound or infection. General Back: other FROM with assistance. Not able to sit up on her own. Extremity Extremity Narrative: Bilateral hand and foot deformities, chronic appearing. Patchy erythema that she and her frame fixer state are normal for her distal extremities. Not able to move at the feet or ankles, which is baseline for her. Brisk cap refill all toes and fingers. No areas of tenderness. General Extremety ED: Negative for edema, pulses abnormal or tenderness General Extremity: Negative for edema or pulses abnormal Neuro oriented x3 and CN's II-XII intact bilaterally Neuro Narrative: Sensation grossly intact diffusely but decreased subjectively and symmetrically according to patient, all 4 extremities and back/trunk but less on the trunk. Able to move all 4 extremities, stronger in the arms than the legs. No pain with ranging any joints including both of her hips. Sensorium / Orientation: awake and alert Motor Exam: clonus absent Skin no rashes or lesions noted and no wounds MDM MDM MDM Narrative Medical decision making narrative: Labs, urinalysis, bilateral hip x-rays due to pain in this region, and CT head are all unremarkable. There are no electrolyte disorders that would explain her paresthesias. One could consider Guillan Vega? syndrome in the differential for a sending weakness, in addition to other central nervous system problems like multiple sclerosis. Given her inability to walk now will admit to hospital for further evaluation, discussed with hospitalist Lab Data Attestation: I reviewed the patient's lab results. Labs: Laboratory Results - last 24 hr 10/02/21 10/02/21 10/02/21 11:40 12:10 12:10 WBC 5.8 RBC 3.35 L Hgb 10.4 L Hct 32.1 L MCV 95.8 MCH 31.0 MCHC 32.4 RDW Std Deviation 54.1 H RDW Coeff of Sorin 15.4 H Plt Count 454 H MPV 9.3 Immature Gran % (Auto) 0.200 Neut % (Auto) 69.2 Lymph % (Auto) 17.1 L Mcculloch % (Auto) 11.6 H Eos % (Auto) 1.4 Baso % (Auto) 0.5 Absolute Neuts (auto) 4.0 Absolute Lymphs (auto) 0.99 Nucleated RBC % 0 Sodium 136 Potassium 4.5 Chloride 104 Carbon Dioxide 27.0 Anion Gap 5 BUN 12 Creatinine 0.54 L Estim Creat Clear Calc 59.27 Est GFR (MDRD) Af Amer 139 Est GFR (MDRD) Non-Af 115 BUN/Creatinine Ratio 22.1 H Glucose 86 Calcium 8.6 Urine Color Yellow Urine Clarity Clear Urine pH 5.0 Ur Specific [place] 1.015 Urine Protein Negative Urine Glucose (UA) Normal Urine Ketones Negative Urine Occult Blood Negative Urine Nitrite Negative Urine Bilirubin Negative Urine Urobilinogen Normal Ur Leukocyte Esterase Negative Urine RBC 0 SEEN Urine WBC 0 SEEN Ur Squamous Epith Cells 0-5 SEEN Urine Bacteria 0 SEEN Hyaline Casts 10-25 SEEN Urine Mucus 0 SEEN Radiography Diagnostic Testing: Clinical Impression(s) from Imaging Studies Brain CT 10/02/21 11:10 IMPRESSION: Chronic involutional changes of the brain. Electronically Signed: Marisabel De Los Santos MD at 12:46 EST Tel , Service support , Hip/Pelvis X-Ray 10/02/21 12:22 IMPRESSION: Osteopenia with age consistent and SI joint arthrosis. No demonstrated fracture or suspicious osseous lesion. However, hip and pelvic fractures in patients of this age can be subtle, if there is strong clinical suspicion of a fracture, recommend further evaluation with CT Electronically Signed: Christopher Mcleod MD at 13:19 EST , Service support , EKG Initial EKG: Attestation: I personally reviewed and interpreted this EKG as follows: Interpretation: Sinus Rhythm and No Acute Injury Pattern Comments: Low voltage. Otherwise unremarkable. Discharge Plan Triage Chief Complaint: Numb/Ting ED Provider: Arnie Coleman Dx/Rx/DC Orders Clinical Impression: Bilateral leg weakness, Arthrogryposis, Numbness and tingling Prescriptions: No Action dibucaine 56.7 GM ointment 56.7 g KS 4X/DAY PRN PRN (Reason: anal pain) Qty: 1 RF: 2 potassium chloride 10 MEQ tablet extended release 10 meq PO 4X/DAY RF: 0 L.acidoph, paracasei,B. lactis 1 EACH capsule 1 ea PO DAILY RF: 0 furosemide 40 MG tablet 40 mg PO BID RF: 0 albuterol sulfate [Ventolin HFA] 90 mcg/actuation HFA aerosol inhaler 1 - 2 puff inhalation Q4H PRN PRN (Reason: Wheezing) Qty: 1 RF: 0 aspirin 81 MG tablet,chewable 81 mg PO DAILY@0800 RF: 0 lisinopril 5 MG tablet 5 mg PO DAILY RF: 0 calcium carbonate-vitamin D3 1 TAB tablet 2 tab PO DAILY RF: 0 Primary Care Provider: Momo Carvajal Chi Referrals: Momo Carvajal Chi, MD [Primary Care Provider] - Disposition Disposition: Acute Care Hospital [facility]
[2021-10-02 11:46] LABS: Bacteria 0 SEEN /hpf (None Seen); Mucous, Urine 0 SEEN /hpf (<or=2+); Red Blood Cells-Urine 0 SEEN /hpf (0-5); White Blood Cells 0 SEEN /hpf (0-5)
[2021-10-02 11:47] LABS: Color, Urine Yellow (Yellow); Glucose, Dipstick Normal (Normal); Ketone-Dipstick Negative (Negative); Leukocyte Esterase-Dipstick Negative /ul (Negative); Nitrite-Dipstick Negative (Negative); Occult Blood-Urine Negative /ul (Negative); Protein-Dipstick Negative (Negative); Specific Gravity, Urine 1.015 (1.002-1.030); Urine Bilirubin Dipstick Negative (Negative); Urine Clarity Clear (Clear); Urine Urobilinogen Normal (Normal)
[2021-10-02 11:54] LABS: Hyaline Cast 10-25 SEEN /lpf (0-5); Squamous Epithelial Cells - UA 0-5 SEEN /hpf (5-10)
--- NOTE | 2021-10-02 11:58 | ED.RN ---
CALLED LAB FOR DIFFICULT BLOOD DRAW.
[2021-10-02 12:20] LABS: Absolute Lymphocyte Count 0.99 X10^3/uL (0.83-4.51); Basophil# 0.03 X10^3/uL; Basophil% 0.5 % (0-1); Eosinophil# 0.08 X10^3/uL; Eosinophils% 1.4 % (0-5); Hematocrit 32.1 % (37-47); Hemoglobin 10.4 g/dL (12.0-15.0); Lymphocyte # 0.99 X10^3/ul (0.83-4.51); Lymphocyte % 17.1 % (19-41); Mean Corp Hgb Conc 32.4 g/dL (32-36); Mean Corpuscular Volume 95.8 fL (81-99); Mean Platelet Vol. 9.3 fl (6.2-12.0); Monocyte# 0.67 X10^3/uL; Monocyte% 11.6 % (0-10); NRBC Flagged by Analyzer 0 % (0-5); Neutrophil # 4.02 X10^3/uL (2.7-7.7); Neutrophil % 69.2 % (47-70); Platelet Count 454 K/mm3 (150-450); RBC Distribution Width CV 15.4 % (11.6-14.6); RBC Distribution Width SD 54.1 fl (35.1-43.9); Red Blood Count 3.35 M/mm3 (4.2-5.4); White Blood Count 5.8 K/mm3 (4.4-11.0)
--- NOTE | 2021-10-02 12:22 | RAD_ITS ---
STUDY: X-RAY - PELVIS AND BILATERAL HIPS REASON FOR EXAM: Female, 81 years old. Pain and stiffness TECHNIQUE: AP view of the pelvis.? 2 views of the right hip, and 2 views of the left hip were obtained. COMPARISON: None. FINDINGS: There is a non-specific bowel gas pattern. Normal visualized soft tissue structures. There is diffuse demineralization of the osseous structures. There is narrowing with cortical sclerosis and osteophyte formation of the sacroiliac joint consistent with degenerative osteoarthritic changes. Normal bilateral superior and inferior pubic rami. Normal pubic symphysis. Normal bilateral ischial tuberosities. Normal visualized right femoral head. Normal right acetabulum. There is moderate articular joint space narrowing of the right hip. Normal visualized left femoral head. Normal left acetabulum. There is moderate articular joint space narrowing of the left hip. RAD/Hips B/L min 2 views w/ Pelvis IMPRESSION: Osteopenia with age consistent and SI joint arthrosis. No demonstrated fracture or suspicious osseous lesion. However, hip and pelvic fractures in patients of this age can be subtle, if there is strong clinical suspicion of a fracture, recommend further evaluation with CT Electronically Signed: Christopher Mcleod MD at 13:19 EST , Service support ,
[2021-10-02 12:30] LABS: Anion Gap 5 (5-15); BUN 12 mg/dL (7-18); BUN/Creat Ratio 22.1 RATIO (10-20); Calcium,Total 8.6 mg/dL (8.5-10.1); Chloride 104 mmol/L (98-107); Creatinine, Serum 0.54 mg/dL (0.55-1.02); EST Glomerular Filtration Rate 115 mL/min (>60); Est Glom Filt Rate - Afr Amer 139 mL/min (>60); Estimated Creatinine Clearance 59.27 ml/min; Glucose 86 mg/dL (74-106); Potassium 4.5 mmol/L (3.5-5.1); Sodium Level 136 mmol/L (136-145)
--- NOTE | 2021-10-02 14:31 | PCM.HP.STD ---
HPI - General General Date of Admission: 10/02/21 HPI Narrative ABRAN SAENZ, is a 81 F who presents with numbness. Patient stated that she had numbness in her right lower extremity 2 weeks ago when she was in the hospital. Was at home and was doing well but then yesterday noticed numbness involving her left leg as well as her upper extremities. 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 Stated that she was not able to walk until she was 10 years old after going to [facility]. Patient stated that 2 weeks ago she is also having some right hip pain as well as numbness. Patient describes numbness involving her whole right lower extremity. Then developed numbness involving her left lower extremity. 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 This is never happened to her before. [facility] Medical History Acute congestive heart failure Arthrogryposis COVID-19 Diastolic CHF Hearing loss, left Hearing loss, right HLD (hyperlipidemia) HTN (hypertension) Hypoxia Kidney disease Morbid obesity with BMI of 40.0-44.9, adult Non-smoker Pneumonia S/p nephrectomy SBO (small bowel obstruction) Sepsis Shortness of breath Single kidney Wears hearing aid in both ears Home Medications aspirin 81 mg PO DAILY@0800 07/12/15 [History Last Taken 10/01/21] calcium carbonate-vitamin D3 2 tab PO DAILY 07/12/15 [History Last Taken 10/01/21] lisinopril 5 mg PO DAILY 07/12/15 [History Last Taken 10/01/21] L.acidoph, paracasei,B. lactis 1 ea PO DAILY 03/22/19 [History Last Taken 10/01/21] furosemide 40 mg PO BID 03/22/19 [History Last Taken 10/01/21] potassium chloride 10 meq PO 4X/DAY 03/22/19 [History Last Taken 10/01/21] Allergy/AdvReac Type Severity Reaction Status Date / Time No Known Allergies Allergy Verified 10/02/21 11:04 Surgical History H/O section History of orthopedic surgery S/p nephrectomy Status post laparoscopy Social History Smoking Status: Never smoker ROS ROS Narrative Patient has had some chronic shortness of breath that is present before prem Covid. All review of systems were negative except as mentioned above in the history of present illness and the other review of systems. Vital Signs Vital Signs Vital Signs: 10/02/21 11:04 10/02/21 13:24 10/02/21 13:35 Temperature 36.6 C 36.6 C Temperature Source Oral Oral Pulse Rate 94 97 97 Respiratory Rate 18 16 16 Blood Pressure 110/97 H 117/75 117/75 Blood Pressure Mean 101 89 89 Pulse Ox 94 97 97 Oxygen Delivery Method Room Air Room Air Room Air Weight Weight: 82.3 kg Body Mass Index (BMI) 37.9 Physical Exam Const alert Constitutional Narrative: Hard of hearing General Appearance: cooperative HEENT normocephalic, head/scalp atraumatic and moist oral mucous membranes Eyes PERRL and EOMs intact bilaterally Neck no lymphadenopathy and supple Resp normal respiratory effort, no retractions, no use of accessory muscles and clear to auscultation bilaterally Cardio regular rate, regular rhythm, S1 normal heart sound and S2 normal heart sound GI normal to inspection, nondistended, normoactive bowel sounds, soft to palpation, non-tender and non-distended Extremity Extremity Narrative: Contractures in her upper extremities with contractures on her hands. Unable to extend her fingers. Patient has shortened lower extremities as well as shortened digits on her feet. Skin no wounds Skin Narrative: Venous stasis changes to her lower extremities. Neuro Neuro Narrative: Limited strength in the upper extremities. Verified with patient and her that this is chronic. Sensorium / Orientation: alert Psych affect normal Results Lab / Micro Data Attestation: I reviewed the patient's lab results. Result Diagrams: 10/02/21 12:10 10/02/21 12:10 Labs: Laboratory Results - last 24 hr 10/02/21 11:40: Urine Color Yellow, Urine Clarity Clear, Urine pH 5.0, Ur Specific [place] 1.015, Urine Protein Negative, Urine Glucose (UA) Normal, Urine Ketones Negative, Urine Occult Blood Negative, Urine Nitrite Negative, Urine Bilirubin Negative, Urine Urobilinogen Normal, Ur Leukocyte Esterase Negative, Urine RBC 0 SEEN, Urine WBC 0 SEEN, Ur Squamous Epith Cells 0-5 SEEN, Urine Bacteria 0 SEEN, Hyaline Casts 10-25 SEEN, Urine Mucus 0 SEEN 10/02/21 12:10: WBC 5.8, RBC 3.35 L, Hgb 10.4 L, Hct 32.1 L, MCV 95.8, MCH 31.0, MCHC 32.4, RDW Std Deviation 54.1 H, RDW Coeff of Sorin 15.4 H, Plt Count 454 H, MPV 9.3, Immature Gran % (Auto) 0.200, Neut % (Auto) 69.2, Lymph % (Auto) 17.1 L, [place] % (Auto) 11.6 H, Eos % (Auto) 1.4, Baso % (Auto) 0.5, Absolute Neuts (auto) 4.0, Absolute Lymphs (auto) 0.99, Nucleated RBC % 0 10/02/21 12:10: Sodium 136, Potassium 4.5, Chloride 104, Carbon Dioxide 27.0, Anion Gap 5, BUN 12, Creatinine 0.54 L, Estim Creat Clear Calc 59.27, Est GFR (MDRD) Af Amer 139, Est GFR (MDRD) Non-Af 115, BUN/Creatinine Ratio 22.1 H, Glucose 86, Calcium 8.6 EKG Initial EKG: Attestation: I personally reviewed and interpreted this EKG as follows: Prior EKG tracings: available for review EKG Rhythm Intrepretation: Sinus Rhythm Radiology Impression Brain CT 10/02/21 11:10 IMPRESSION: Chronic involutional changes of the brain. Electronically Signed: Marisabel De Los Santos MD at 12:46 EST Tel , Service support , Hip/Pelvis X-Ray 10/02/21 12:22 IMPRESSION: Osteopenia with age consistent and SI joint arthrosis. No demonstrated fracture or suspicious osseous lesion. However, hip and pelvic fractures in patients of this age can be subtle, if there is strong clinical suspicion of a fracture, recommend further evaluation with CT Electronically Signed: Christopher Mcleod MD at 13:19 EST , Service support , Assessment & Plan Assessment/Plan (1) Numbness and tingling: (2) Bilateral leg weakness: PLAN: 1. Diffuse paresthesias and numbness Etiology is not limited to stroke versus radiculopathy versus electrolyte derangements or even Guillain-Vega?. I suspect more radiculopathy Plan: MRI of the brain, MRI of cervical spine and lumbar spine. Check magnesium as well as TSH Patient at this time is declining a lumbar puncture. Told her that the likelihood of this being Guillain-Vega? is very low but if her work-up is otherwise unremarkable that may be necessary to do a lumbar puncture. I told her if she does have Guillain-Vega? that. Decision not to have lumbar puncture at this time may delay potential treatment including plasmapheresis if that became necessary to transfer to a tertiary facility if that were to be necessary. 2.Arthogryposis Chronic Wears brace s PT OT 3.VTE prophylaxis: SCDs for now in case LP would be necessary . Charges/Coding Visit Charges Inpatient E&M: 84008 Init Hosp L3
--- NOTE | 2021-10-02 14:50 | MRI_ITS ---
STUDY: MRI LUMBAR SPINE WITHOUT CONTRAST REASON FOR EXAM: Female, 81 years old. bilateral lower extremity numbness TECHNIQUE: Standardized fat and water weighted pulse sequences were obtained in the sagittal and axial planes. COMPARISON: 07/10/2017 FINDINGS: Normal lumbar lordosis. There is no substantial scoliosis. Normal conus medullaris that terminates at the L1/L2 L1-2: There is mild disc space narrowing and endplates spondylosis. Mild disc bulge and moderate facet arthropathy with mild central canal stenosis. Mild right and mild left foraminal stenosis. L2-3: There is mild disc space narrowing and endplates spondylosis. Mild disc bulge and moderate facet arthropathy without significant central stenosis. Mild right and mild left foraminal stenosis. L3-4: There is mild disc space narrowing and endplates spondylosis. Moderate disc bulge and facet arthropathy with moderate central canal stenosis. Mild right and mild left foraminal stenosis. L4-5: There is moderate disc space narrowing and endplates spondylosis. Moderate disc osteophyte complex and severe facet arthropathy with joint widening resulting in severe central canal stenosis. Severe right and moderate left foraminal stenosis. Findings are stable since the prior examination L5-S1: There is mild disc space narrowing and endplates spondylosis. Mild disc osteophyte complex and moderate facet arthropathy without significant central canal stenosis. Mild right and minimal left foraminal stenosis. Findings are stable since prior examination Normal visualized sacral ala. MRI/Spine Lumbar (Routine) IMPRESSION: Stable multilevel degenerative changes. L3/L4: Moderate central canal stones. L4/L5: Severe central canal stenosis. Severe right and moderate left foraminal stenosis. Electronically Signed: Marisabel De Los Santos MD at 13:10 EST Tel , Service support ,
--- NOTE | 2021-10-02 14:50 | MRI_ITS ---
STUDY: MRI CERVICAL SPINE WITHOUT CONTRAST REASON FOR EXAM: Female, 81 years old. bilateral upper extremity numbness TECHNIQUE: Standardized fat and water weighted pulse sequences were obtained in the sagittal and axial planes. COMPARISON: None FINDINGS: Normal foramen magnum and brainstem-cervical cord junction. There is reversal of the normal cervical lordosis. C2-3: There is congenital fusion. The central canal and neural foramina are patent. C3-4: There is congenital fusion. The central canal and neural foramina are patent. C4-5: There is mild disc space narrowing and endplates spondylosis moderate disc osteophyte complex and dorsal ligamentous buckling with severe central canal stenosis and compression of the spinal cord. Uncovertebral and facet arthropathy with moderate right and and severe left foraminal stenosis. C5-6: There is mild disc space narrowing and endplates spondylosis. Moderate disc osteophyte complex with moderate central canal stenosis. Uncovertebral and facet arthropathy with mild right and mild left foraminal stenosis. C6-7: There is severe disc space narrowing and endplates spondylosis. There is kyphosis along with minimal disc osteophyte complex and there are liver metastases with severe central canal stenosis with increased cord signal, consistent with cord impingement and myelomalacia. Moderate right and moderate left foraminal stenosis. C7-T1: There is severe disc space narrowing and endplates spondylosis mild disc osteophyte complex with mild central canal stenosis. Uncovertebral arthropathy with moderate right and moderate left foraminal stenosis. MRI/Spine Cervical (Routine) IMPRESSION: Moderate/severe multilevel degenerative changes with cord compression and myelomalacia. Electronically Signed: Marisabel De Los Santos MD at 12:34 EST Tel , Service support ,
--- NOTE | 2021-10-02 14:50 | ECHOD_ITS ---
Reason For Study: TIA/CVA Procedure This was a 2D Doppler, Color Flow transthoracic echocardiogram. No bubble study/Definity due to increased PAP. Exam performed portable in patient room. Left Ventricle Normal LV size. Mild concentric left ventricular hypertrophy. Left ventricular systolic function is normal. Stage 1 diastolic dysfunction. No regional wall motion abnormalities noted. Right Ventricle Normal RV size. Normal systolic function. Atria Normal left atrium. Normal right atrium. Tricuspid Valve Normal tricuspid valve. Moderately severe (3+) tricuspid valve insufficiency. Pulmonary artery systolic pressure is 84 mmHg. Severe pulmonary hypertension. Aortic Valve Trisinus/trileaflet aortic valve. Pericardium/Pleural Small pericardial effusion. There are no echocardiographic indications of cardiac tamponade. MMode/2D Measurements & Calculations LVIDd: 3.2 cm IVSd: 1.2 cm Ao root diam: 2.7 cm LVIDs: 1.9 cm LVPWd: 1.4 cm RVDd: 2.1 cm FS: 38.8 % LAV(MOD-bp): 21.1 ml LA dimension(2D): 2.1 cm LA A4 area: 8.8 cm2 LAV(MOD-bp) Indexed: 12.3 ml/m2 LAV(MOD-sp2): 42.7 ml LAV(MOD-sp4): 10.7 ml RA A4 area: 10.0 cm2 Time Measurements MV dec time: 0.16 sec Doppler Measurements & Calculations MV E max rahul: 81.4 cm/sec Lat Peak E' Rahul: 5.0 cm/sec Med Peak E' Rahul: 5.5 cm/sec MV A max rahul: 162.3 cm/sec E/E' lat: 16.4 E/E' med: 14.8 MV E/A: 0.50 MV V2 max: 177.9 cm/sec MV P1/2t max rahul: 97.4 cm/sec Ao V2 max: 146.1 cm/sec MV max P.7 mmHg MV P1/2t: 47.6 msec Ao max P.5 mmHg MV V2 mean: 107.1 cm/sec Ao V2 mean: 100.7 cm/sec MV mean P.2 mmHg MV dec slope: 599.2 cm/sec2 Ao mean P.4 mmHg MV V2 VTI: 28.8 cm MVA(P1/2t): 4.6 cm2 Ao V2 VTI: 26.2 cm LV V1 max: 122.4 cm/sec PA V2 max: 99.2 cm/sec TR max rahul: 446.2 cm/sec LV V1 max P.0 mmHg TR max P.6 mmHg ECHO/Echo Complete Interpretation Summary Normal LV size. Mild concentric left ventricular hypertrophy. Left ventricular systolic function is normal. Stage 1 diastolic dysfunction. Pulmonary artery systolic pressure is 84 mmHg. Severe pulmonary hypertension. Small pericardial effusion. There are no echocardiographic indications of cardiac tamponade. Ordering Physician: Jc Marin Referring Physician: Momo Carvajal Chi Performed By: Alexandra Olivarez, NIDHI, RVT
--- NOTE | 2021-10-02 14:50 | MRI_ITS ---
STUDY: MRI BRAIN WITHOUT CONTRAST REASON FOR EXAM: Female, 81 years old. bilateral numbenss TECHNIQUE: Standardized multiplanar fat and water weighted pulse sequences were obtained. COMPARISON: CT of the brain 10/02/2021 FINDINGS: Mild atrophy and minor periventricular white matter ischemic change without mass effect or restricted diffusion. Normal bilateral basal ganglia. Normal thalami. There is no extra-axial fluid accumulation. Normal flow voids within the major intracranial circulation suggesting patency by spin echo criteria. Normal sella turcica, pituitary gland, infundibular stalk, optic chiasm and hypothalamus. Normal tectal plate and pineal gland. Normal midbrain, jennifer and medulla. Normal cerebellum. Normal basal cisterns. Normal bilateral temporal bones. Normal bilateral internal auditory canals. Increased signal intensity in the left mastoids consistent with inflammatory changes Postsurgical changes of the orbits.. Normal visualized paranasal sinuses. Normal calvarium and skull base. Normal visualized soft tissue structures. Normal visualized upper cervical spine. MRI/Brain without Contrast IMPRESSION: Mild atrophy and periventricular white matter ischemic changes. No evidence for acute infarct Electronically Signed: Mark Wang MD at 22:53 EST , Service support ,
[2021-10-02 15:26] LABS: Troponin-I HS 8 pg/mL (3.0-54.0)
--- NOTE | 2021-10-02 19:37 | NURSING ---
NIH not completed when due as patient is off the unit getting MRI. NIH will be completed when patient returns to the unit.
--- NOTE | 2021-10-02 19:39 | PCS.PANDOC ---
PANDEMIC DOCUMENTATION INITIATED: Date: 06/26/2021 Time: 190
[2021-10-02] MEDS: Furosemide 40 MG Tablet PO (21:30)
[2021-10-02] MEDS: Potassium Chloride Oral Tablet 10 MEQ PO (21:30)
[2021-10-03] VITALS (12 sets, daily range): BP systolic 95–113; BP diastolic 39–61; PULSE 39–96; RESP 16–18; TEMP 36.7–37; O2SAT 92–99
[2021-10-03] MEDS: Aspirin 81 MG TAB.CHEW PO (08:40)
[2021-10-03] MEDS: Calcium Carb/Vitamin D 1 TABLET Tablet PO (08:40)
[2021-10-03] MEDS: Furosemide 40 MG Tablet PO ×2 (08:41→20:11)
[2021-10-03] MEDS: Lisinopril 5 MG Tablet PO (08:41)
[2021-10-03] MEDS: Potassium Chloride Oral Tablet 20 MEQ PO ×2 (08:41→20:11)
[2021-10-03 08:54] LABS: Cholesterol 177 mg/dL (200); High Density Lipoprotein 46 mg/dL; Magnesium 1.9 mg/dL (1.6-2.6); Thyroid Stim Hormone (TSH) 1.97 uIU/mL (0.358-3.74); Triglycerides 84 mg/dL; Very Low Density Lipoprotein 17 mg/dL (5-40)
--- NOTE | 2021-10-03 13:56 | CASEMGMT ---
Physician said patient would like to go to [facility]. SW met with patient and her and they confirmed that is where patient would like to go. SW let them know SW will check to see if TCU has any availability. SW spoke with [facility] and they can accept patient in TCU. SW let patient and her know that TCU can take her when she is ready. Patient said there or [facility]. SW let patient know [facility] is currently not accepting patients right now. They agree with TCU. Plan: d/c to [facility] under skilled level of care. Korin MCCRACKEN
--- NOTE | 2021-10-03 15:03 | PN.HOSP_ITS ---
Documented by User: Timothy VELARDE 10/03/21 15:18 Subjective Subjective Patient is a 72-year-old female lying in bed, alert and orient x3. Patient denies any worsening or progression of her symptoms overnight. Denies development of any new symptoms overnight. Does not appear in acute distress. Objective Data Objective Data Vital Signs: Vital Signs Temp Pulse Resp BP Pulse Ox 98.1 F 84 18 98/47 L 99 10/03/21 09:00 10/03/21 14:37 10/03/21 09:00 10/03/21 09:00 10/03/21 09:00 Oxygen Flow Rate (L/min) 2 Oxygen Delivery Method Nasal Cannula Weight: 172 lb 13.478 oz Body Mass Index (BMI) 37.3 Intake & Output: Intake and Output for Last 24 Hours 10/01/21 10/02/21 10/03/21 23:59 23:59 23:59 Intake Total 600 / 600 410 / 410 Output Total 100 / 100 350 / 350 Balance 500 / 500 60 / 60 Lab / Micro Data Result Diagrams: 10/02/21 12:10 10/02/21 12:10 Labs: Laboratory Results - last 24 hr 10/02/21 14:55: Troponin I High Sens 8 10/03/21 08:02: Magnesium 1.9, Triglycerides 84, Cholesterol 177, LDL Cholesterol 114, VLDL Cholesterol 17, HDL Cholesterol 46, TSH 1.97 Radiography Diagnostic Testing: Radiology Impression Brain MRI 10/02/21 14:50 IMPRESSION: Mild atrophy and periventricular white matter ischemic changes. No evidence for acute infarct Electronically Signed: Mark Wang MD at 22:53 EST , Service support , Cervical Spine MRI 10/02/21 14:50 IMPRESSION: Moderate/severe multilevel degenerative changes with cord compression and myelomalacia. Electronically Signed: Marisabel De Los Santos MD at 12:34 EST Tel , Service support , Echocardiogram 10/02/21 14:50 Interpretation Summary Normal LV size. Mild concentric left ventricular hypertrophy. Left ventricular systolic function is normal. Stage 1 diastolic dysfunction. Pulmonary artery systolic pressure is 84 mmHg. Severe pulmonary hypertension. Small pericardial effusion. There are no echocardiographic indications of cardiac tamponade. Ordering Physician: Jc Marin Referring Physician: Momo Carvajal Chi Performed By: Alexandra Olivarez, RDCS, RVT Lumbar Spine MRI 10/02/21 14:50 IMPRESSION: Stable multilevel degenerative changes. L3/L4: Moderate central canal stones. L4/L5: Severe central canal stenosis. Severe right and moderate left foraminal stenosis. Electronically Signed: Marisabel De Los Santos MD at 13:10 EST Tel , Service support , Physical Exam Const alert, oriented x3 and no apparent distress HEENT head/scalp atraumatic and moist oral mucous membranes Head and Scalp: normocephalic Eyes PERRL, EOMs intact bilaterally and conjunctivae normal Neck no lymphadenopathy, supple and no JVD Resp normal respiratory effort, no retractions and no use of accessory muscles Cardio regular rate, regular rhythm, no murmurs and no JVD GI normal to inspection, nondistended, normoactive bowel sounds, soft to palpation and non-tender Extremity Extremity Narrative: Patient is unable to extend fingers, and upper extremities are otherwise held in contraction. Patient has shortening lower extremities. Skin no rashes or lesions noted, no wounds and skin turgor normal Neuro oriented x3 Neuro Narrative: Limited strength in the upper and lower extremities. Sensorium / Orientation: awake and alert Psych affect normal Assessment & Plan Assessment/Plan (1) Bilateral leg weakness: (2) Numbness and tingling: (3) Arthrogryposis: PLAN: Day 1 Discharge planning: Patient would like to discharge to senior care facility for ongoing therapy as she feels she is too weak to return home. Case management and social work following. 1) diffuse paresthesias and numbness Cervical spine MRI demonstrated multilevel degenerative change with cord compression and myelomalacia. Brain MRI did not demonstrate any evidence of acute infarct. Lumbar spine MRI demonstrated stable degenerative changes throughout the lumbar spine, severe central canal stenosis identified in L4-L5. Magnesium and TSH within normal limits. Dr. Dickinson of [facility] consulted on case. PT/OT eval pending as patient expresses desire to be discharged to SNF. 2) chronic diastolic CHF Patient is not in acute exacerbation and respiratory status is stable. Echocardiogram demonstrates normal LV size and systolic function, stage I diastolic dysfunction and a pulmonary artery systolic pressure of 84 mmHg with severe pulmonary hypertension. No evidence of cardiac tamponade. Continue Lasix and lisinopril. DVT prophylaxis - SCDs Patient seen by Timothy Bell PA-C, under the supervision of Dr. Cuh. Documented by User: Dr. Naye Chu DO 10/03/21 16:16 Subjective Subjective This patient was seen in conjunction with SYD Luna. The following is a representation my independent history and physical examination. Please see below for addendum the above. Patient reports that she was much more functional prior to having Covid at the end of August early September. She states the profound weakness is dramatically worse and that the tingling she is experiencing is new as well. She states the tingling was more diffuse yesterday but localized today just to her bilateral distal lower extremities. She currently is not experiencing any shortness of breath or respiratory complaints. Objective Data Lab / Micro Data Result Diagrams: 10/02/21 12:10 10/02/21 12:10 Assessment & Plan Assessment/Plan (1) Bilateral leg weakness: (2) Numbness and tingling: (3) Arthrogryposis: (4) Cervical cord myelomalacia: (5) Cervical stenosis of spinal canal: (6) Lumbar stenosis: PLAN: Assessment: Bilateral upper and lower extremity weakness Bilateral distal lower extremity paresthesias/numbness Severe pulmonary artery hypertension Compensated chronic diastolic and RV HFpEF HPL Hypertension History of solitary kidney Arthrogryposis Chronic stable normocytic anemia-suspect related to chronic disease Plan: -Echocardiogram was performed and shows a normal EF with mild concentric LVH and stage I diastolic dysfunction as well as pulmonary artery systolic pressures at 84 mmHg and a small pericardial effusion with no signs of cardiac tamponade -Patient is currently on room air and not experiencing any shortness of breath -On screening patient does not seem to have any signs or symptoms of sleep apnea but I do feel that this likely should be Ruled out given her severe pulmonary artery pressure elevation and lack of known lung disease -MRI of her brain is negative for any acute findings -MRI of her cervical spine shows moderate to severe multilevel degenerative changes with severe central canal stenosis and cord compression and myelomalacia at C5-C6 which could in part explain her significant weakness in bilateral upper extremities -MRI of her lumbar spine shows stable multilevel degenerative changes with moderate central canal stenosis at L3-L4 and severe central canal stenosis at L4-L5 with severe right and moderate left foraminal stenosis -Given her weakness in upper and lower extremities and sensory changes in her lower extremities I will consult spine surgery to have her evaluated as it is questionable whether or not her symptoms are related to findings -Nerve conduction EMG may be helpful but would need to be done as an outpatient -Patient has not had any progression of symptoms and actually states that the paresthesias she was experiencing that were more diffuse are improved today -Mag level and TSH were normal -Her UA is unimpressive Charges/Coding Visit Charges Inpatient E&M: 85591 Subs Hosp L2
--- NOTE | 2021-10-03 16:02 | CASEMGMT ---
Readmission chart review: 09/11-09/13/21 COVID/weakness-pt discharged to [facility] but then signed self out 10/02/21-current Weakness, numbness Pt returned to [facility] ED for increased weakness/numbness in extremities. Pt with hx arthrogryposis and was recently discharged to [place] for weakness but then subsequently signed self out. Pt's normally assists pt with ADL's. See CM assessment from 09/11/21 regarding further DME. Pt already states that she would like to return to SNF this visit and therapy states the same recommendation. Libby SHIRLEY working with pt regarding same. CM to follow for any further discharge planning/needs. Saeed ALBERTO CM
--- NOTE | 2021-10-03 19:34 | NURSING ---
Pt stated that she does not want to be turned throughout the night. She will let staff know if she wants to be repositioned during the night.
--- NOTE | 2021-10-03 20:14 | NURSING ---
Pt's 2200 medication given early per pt request. Pt's lasix given late per pt request.
[2021-10-04] VITALS (11 sets, daily range): BP systolic 91–108; BP diastolic 32–53; PULSE 78–98; RESP 16–18; TEMP 36.6–37.3; O2SAT 94–100
[2021-10-04 06:29] LABS: Absolute Lymphocyte Count 1.17 X10^3/uL (0.83-4.51); Absolute Neutrophil Count 3.4 X10^3/uL (2.0-7.7); Basophil# 0.04 X10^3/uL; Basophil% 0.7 % (0-1); Eosinophil# 0.11 X10^3/uL; Hematocrit 30.2 % (37-47); Hemoglobin 9.4 g/dL (12.0-15.0); Lymphocyte # 1.17 X10^3/ul (0.83-4.51); Mean Corp Hgb Conc 31.1 g/dL (32-36); Mean Corpuscular Hgb 30.3 pg (27.0-32.0); Mean Corpuscular Volume 97.4 fL (81-99); Mean Platelet Vol. 9.3 fl (6.2-12.0); Monocyte% 14.4 % (0-10); NRBC Flagged by Analyzer 0 % (0-5); Neutrophil # 3.42 X10^3/uL (2.7-7.7); Neutrophil % 61.5 % (47-70); Platelet Count 398 K/mm3 (150-450); RBC Distribution Width CV 15.2 % (11.6-14.6); RBC Distribution Width SD 54.3 fl (35.1-43.9); White Blood Count 5.6 K/mm3 (4.4-11.0)
[2021-10-04 06:43] LABS: Anion Gap 7 (5-15); BUN 18 mg/dL (7-18); BUN/Creat Ratio 30.1 RATIO (10-20); Calcium,Total 8.3 mg/dL (8.5-10.1); Chloride 102 mmol/L (98-107); EST Glomerular Filtration Rate 103 mL/min (>60); Est Glom Filt Rate - Afr Amer 124 mL/min (>60); Estimated Creatinine Clearance 56.46 ml/min; Glucose 78 mg/dL (74-106); Potassium 4.4 mmol/L (3.5-5.1); Sodium Level 138 mmol/L (136-145)
[2021-10-04] MEDS: Aspirin 81 MG TAB.CHEW PO (09:24)
[2021-10-04] MEDS: Calcium Carb/Vitamin D 1 TABLET Tablet PO (09:24)
[2021-10-04] MEDS: Potassium Chloride Oral Tablet 20 MEQ PO (09:24)
--- NOTE | 2021-10-04 13:22 | PCM.CONS.B ---
Consult Date of Consult: 10/04/21 Mrs. Knight is a most pleasant lady 81 years old that has a chief complaint of difficulty walking and weakness in the lower extremities. She is in the company of her . She relates that she has been having gradual decline in ambulation for the last year. She was born with arthrogryposis. She has had to use braces all her life to ambulate. He does not have any low back pain per se. She has very little neck pain also. She is does not have any pain into either upper extremity. She does not describe any radicular symptoms in the lower extremities either. On examination it is noted that she can lift her legs off of the bed. The motion of her ankles is very limited of course due to her condition. Her lower legs are quite atrophied. She has reasonable motor strength of the upper extremities. As best I can tell she has no long tract signs. She has no clonus Babinski's are downgoing. I reviewed her MRI scan of the lumbar spine that demonstrates that she does indeed have marked stenosis at the L4-5 level. The exam was suboptimal because of movement. She also had some spinal stenosis in her cervical spine with a small area of what might be myelomalacia. I explained to her and her that I doubted that surgical intervention of her lumbar spine would help her ambulate any better. This has been coming on for a very long time. Plus there are probably multifaceted reasons that she is having trouble ambulating now. Surgical intervention on her low back would put her at significant risk and with very little benefit, if any. Other potential conditions should be considered including Guillain-Vega?. This is the end of consultation on Ann Knight. This is Dr. Dickinson dictating.
--- NOTE | 2021-10-04 13:53 | TREXTCAR_ITS ---
Documented by User: Timothy VELARDE 10/04/21 15:12 Diet 10/02/21 14:50 Diet: Regular - General Food consistency:: Regular Liquid Consistency:: Regular/Thin Therapies Physical Therapy: Eval and Treat Occupational Therapy: Eval and Treat Problem/Diagnosis (1) Bilateral leg weakness: Status: Acute (2) Numbness and tingling: Status: Acute (3) Arthrogryposis: Status: Chronic (4) Cervical cord myelomalacia: Status: Acute (5) Cervical stenosis of spinal canal: Status: Acute (6) Lumbar stenosis: Status: Acute Allergies/Procedures Done in Hospital Allergies No Known Allergies Allergy (Verified 10/02/21 11:04) Type of Care/Length of Stay Estimated LOS: Convalescent Care Less Than 30 days Type of Care Needed: Skilled Rehab Potential: Good Prognosis: Good Additional Orders/Day of Discharge Day of Discharge: 10/04/21 Discharge Plan Admission Admit Date/Time: 10/02/21 14:18 Primary Reason for Your Visit: Stroke like symptoms Attending Provider: Naye Chu Primary Care Provider: Momo Carvajal Chi Consulting Providers: Myron Dickinson Discharge Orders/Prescriptions Prescriptions: Continued potassium chloride 10 MEQ tablet extended release 20 meq PO BID RF: 0 L.acidoph, paracasei,B. lactis 1 EACH capsule 1 ea PO DAILY RF: 0 furosemide 40 MG tablet 40 mg PO BID RF: 0 aspirin 81 MG tablet,chewable 81 mg PO DAILY@0800 RF: 0 lisinopril 5 MG tablet 5 mg PO DAILY RF: 0 calcium carbonate-vitamin D3 1 TAB tablet 2 tab PO DAILY RF: 0 Referrals / Follow Up: Momo Carvajal Chi, MD [Primary Care Provider] - Within 2 Weeks Disposition Disposition (needs filled in before D/C Order can be placed): Senior Living Facility Documented by User: Dr. Naye Chu DO 10/04/21 15:41 Routine Orders/Code Status Suppository Frequency: Daily PRN O2 Frequency: PRN Routine Lab Work: CBC and BMP Code Status: Full Code Therapies Weight Bearing: Weight bearing as tolerated Extremity Affected:: Bilateral Lower Physical Therapy: Eval and Treat Occupational Therapy: Eval and Treat Allergies/Procedures Done in Hospital Allergies No Known Allergies Allergy (Verified 10/02/21 11:04) Procedures: 2-D Echocardiogram and - (MRI brain, cervical spine, lumbar spine) Type of Care/Length of Stay Estimated LOS: Convalescent Care Less Than 30 days Type of Care Needed: Skilled Rehab Potential: Fair Prognosis: Fair Additional Orders/Day of Discharge Day of Discharge: 10/04/21 Discharge Plan Admission Admit Date/Time: 10/02/21 14:18 Primary Reason for Your Visit: Stroke like symptoms Attending Provider: Naye Chu Primary Care Provider: Momo Carvajal Chi Consulting Providers: Myron Dickinson Discharge Orders/Prescriptions Prescriptions: Continued potassium chloride 10 MEQ tablet extended release 20 meq PO BID RF: 0 L.acidoph, paracasei,B. lactis 1 EACH capsule 1 ea PO DAILY RF: 0 furosemide 40 MG tablet 40 mg PO BID RF: 0 aspirin 81 MG tablet,chewable 81 mg PO DAILY@0800 RF: 0 lisinopril 5 MG tablet 5 mg PO DAILY RF: 0 calcium carbonate-vitamin D3 1 TAB tablet 2 tab PO DAILY RF: 0 Referrals / Follow Up: Momo Carvajal Chi, MD [Primary Care Provider] - Within 2 Weeks Disposition Disposition (needs filled in before D/C Order can be placed): Senior Living Facility
--- NOTE | 2021-10-04 14:04 | TELEMED_ITS ---
[facility] has confirmed receipt of a request for visit. This document confirms receipt of the order initiating the consult. To find the results of the consultation, please view the patient's reports for the scanned Telemed Consult.
--- NOTE | 2021-10-04 14:13 | CHAPLAIN ---
Type of Pastoral Visit _x__ Initial Visit ___ Follow-up Visit ___ On-call Visit ___ General Patient Visit ___ Spiritual Assessment ___ Family Conference ___ Bereavement ___ Rapid Response ___ Code Blue ___ Other (describe below) Pastoral Care Referral From _x__ Patient ___ Family ___ Nurse ___ Physician ___ Formal Waiter/Waitress ___ Clothing Consultant ___ Other (describe below) Sacrament/Intervention _x__ Active listening ___ Anointing ___ Pentecostal ___ Bereavement ___ Communion _x__ Dulce exploration ___ _x__ Life review __x_ Prayer ___ Reconciliation ___ Sacrament of Sick _x__ Supportive presence ___ Wedding ___ Other (describe below) Pastoral Comments DR had just been in room prior to this visit and patient states this is really good timing; pt identifies as a believer and welcomes spiritual care support; pt states she is accepting of decisions but does have goal to get back to what is my normal and to walk and do things again; pt is well connected to [employer] family and has her spouse at bedside; prayer welcomed
--- NOTE | 2021-10-04 15:12 | DS.PCM_ITS ---
Documented by User: Timothy VELARDE 10/04/21 15:21 Providers Date of Admission: 10/02/21 Primary Care Physician: Dr. Momo Carvajal MD Consultations 10/03/21 14:12 Consult: Orthopedics Routine Consulting Provider: Myron Dickinson Reason for Consult: Severe weakness with abn MRI c-spine and Lumbar spine EMERGENT Consult: No MD Notified: Yes Date Notified: 10/03/21 Time Notified: 14:12 Method of Notification: telephone Reason For Visit: WEAKNESS, NUMBNESS Diagnosis Discharge Diagnosis (1) Bilateral leg weakness: Status: Acute Code(s): R29.898 - Other symptoms and signs involving the musculoskeletal system (2) Numbness and tingling: Status: Acute Code(s): R20.0 - Anesthesia of skin; R20.2 - Paresthesia of skin (3) Arthrogryposis: Status: Chronic Code(s): Q68.8 - Other specified congenital musculoskeletal deformities (4) Cervical cord myelomalacia: Status: Acute Code(s): G95.89 - Other specified diseases of spinal cord (5) Cervical stenosis of spinal canal: Status: Acute Code(s): M48.02 - Spinal stenosis, cervical region (6) Lumbar stenosis: Status: Acute Code(s): M48.061 - Spinal stenosis, lumbar region without neurogenic claudication Medications at Discharge Home Medications aspirin 81 mg PO DAILY@0800 07/12/15 calcium carbonate-vitamin D3 2 tab PO DAILY 07/12/15 lisinopril 5 mg PO DAILY 07/12/15 L.acidoph, tanmay,B. lactis 1 ea PO DAILY 03/22/19 furosemide 40 mg PO BID 03/22/19 potassium chloride 20 meq PO BID 03/22/19 Hospital Course Summary of Care Provided Minutes Spent on Discharge: 35 Hospital Course: Patient is a 81-year-old female who was admitted to the hosp ital on 10/02/2021 for strokelike symptoms with worsening paresthesias and weakness. Brain MRI was obtained and did not demonstrate any acute infarct. Lumbar and cervical spine MRIs demonstrated moderate/severe multilevel degenerative changes with cord compression and myomalacia in the cervical spine as well as moderate to severe canal stenosis between L3 and L5. Given findings, orthopedic surgery consult was obtained, who did not believe any surgical intervention was indicated at this time nor would it be beneficial to patient. There was a concern from admitting team and orthopedic surgeon for Guillain- Vega?. [facility] tele-neurology consult was obtained who did not believe that this was a severe case of Guillain-Vega? and did not believe that patient would benefit from obtaining plasmapheresis or IVIG. Furthermore, appropriate diagnosis of Guillain-Vega? is complicated by patient's other neurological problems as noted above. During the time of admission, worsening of weakness or paresthesias was not observed and patient's respiratory status was stable throughout admission. No changes were made to home medication list and patient will be discharged to TCU for ongoing skilled therapy in regards to her weakness. Patient is to follow-up with her primary care provider within the next 2 weeks. Patient seen by Timothy Bell PA-C, under the supervision of Dr. Chu. Physical Exam Narrative Patient is a 81-year-old female comfortably resting in bed, alert and orient x3. Patient reports no worsening in her paresthesias from admission. Denies any change in respiratory status. Denies development of any new symptoms overnight. Does not appear in acute distress. Const alert, oriented x3 and no apparent distress HEENT normocephalic, head/scalp atraumatic and hearing grossly normal bilaterally Eyes PERRL, EOMs intact bilaterally and conjunctivae normal Neck no lymphadenopathy, supple and no JVD Resp normal respiratory effort, no retractions, no use of accessory muscles and clear to auscultation bilaterally Cardio regular rate, regular rhythm, no murmurs and no JVD GI normal to inspection, nondistended, normoactive bowel sounds, soft to palpation, non-tender and non-distended Extremity normal to inspection, full ROM and no clubbing, cyanosis or edema Skin no rashes or lesions noted, no wounds and skin turgor normal Neuro CN's II-XII intact bilaterally Psych affect normal Weight / BMI Weight Weight: 172 lb 13.478 oz Body Mass Index (BMI) 37.3 ABG / Lab / Microbiology Data Result Diagrams: 10/04/21 06:03 10/04/21 06:03 Laboratory: Laboratory Results - last 24 hr 10/04/21 06:03: WBC 5.6, RBC 3.10 L, Hgb 9.4 L, Hct 30.2 L, MCV 97.4, MCH 30.3, MCHC 31.1 L, RDW Std Deviation 54.3 H, RDW Coeff of Sorin 15.2 H, Plt Count 398, MPV 9.3, Immature Gran % (Auto) 0.400, Neut % (Auto) 61.5, Lymph % (Auto) 21.0, [place] % (Auto) 14.4 H, Eos % (Auto) 2.0, Baso % (Auto) 0.7, Absolute Neuts (auto) 3.4, Absolute Lymphs (auto) 1.17, Nucleated RBC % 0 10/04/21 06:03: Sodium 138, Potassium 4.4, Chloride 102, Carbon Dioxide 29.0, Anion Gap 7, BUN 18, Creatinine 0.60, Estim Creat Clear Calc 56.46, Est GFR (MDRD) Af Amer 124, Est GFR (MDRD) Non-Af 103, BUN/Creatinine Ratio 30.1 H, Glucose 78, Calcium 8.3 L Microbiology: Microbiology 10/04/21 12:00 Nasal Secretion SARS-CoV-2 Antigen (Rapid) - Final Meaningful Use Info Meaningful Use Diagnoses (Choose all that apply): None applicable Discharge Plan Admission Admit Date/Time: 10/02/21 14:18 Primary Reason for Your Visit: Weakness, parasthesias Attending Provider: Naye Chu Primary Care Provider: Momo Carvajal Chi Consulting Providers: Myron Dickinson Discharge Orders/Prescriptions Prescriptions: Continued potassium chloride 10 MEQ tablet extended release 20 meq PO BID RF: 0 L.acidoph, paracasei,B. lactis 1 EACH capsule 1 ea PO DAILY RF: 0 furosemide 40 MG tablet 40 mg PO BID RF: 0 aspirin 81 MG tablet,chewable 81 mg PO DAILY@0800 RF: 0 lisinopril 5 MG tablet 5 mg PO DAILY RF: 0 calcium carbonate-vitamin D3 1 TAB tablet 2 tab PO DAILY RF: 0 Referrals / Follow Up: Momo Carvajal Chi, MD [Primary Care Provider] - Within 2 Weeks Gianni Coffman MD [NON-STAFF] - Within 3 Months Disposition Disposition (needs filled in before D/C Order can be placed): Alf Facility Documented by User: Dr. Naye Chu DO 10/04/21 15:53 Providers Date of Admission: 10/02/21 Reason For Visit: WEAKNESS, NUMBNESS Medications at Discharge Home Medications aspirin 81 mg PO DAILY@0800 07/12/15 calcium carbonate-vitamin D3 2 tab PO DAILY 07/12/15 lisinopril 5 mg PO DAILY 07/12/15 tanmay Esquivel B. lactis 1 ea PO DAILY 03/22/19 furosemide 40 mg PO BID 03/22/19 potassium chloride 20 meq PO BID 03/22/19 Hospital Course Operations None Procedures None Summary of Care Provided Minutes Spent on Discharge: 38 Hospital Course: Mrs. Knight is a 81-year-old white female presented to the emergency department [facility] on 10/02/2021 secondary to worsening weakness and paresthesias with numbness. She reported on conversation that she had noticed that her extremities had been getting weaker starting in early August and she had noted some intermittent paresthesias predominantly in her lower extremities at that time as well. She then developed COVID-19 in mid August and feels that this exacerbated her weakness overall. She has a baseline history of arthrogryposis and multiple congenital musculoskeletal abnormalities. She had decreased ability to walk and had been experiencing some right hip pain as well. Given her congenital abnormalities and recent COVID-19 infection there was concern for spinal cord issues versus Guillain-Vega? and she was admitted for further work-up. An echocardiogram was performed and showed a normal EF with mild left concentric hypertrophy and stage I diastolic dysfunction as well as pulmonary artery hypertension with a pulmonary artery systolic pressure of 84 mmHg. Anticipate that her pulmonary artery hypertension is likely related to her arthrogryposis and suspected restrictive lung disease along with recent COVID-19 infection. Outpatient follow-up with pulmonary when she is improved clinically may be beneficial with regards to her pulmonary artery hypertension. With regards to her neurological and musculoskeletal symptoms an MRI of her brain was done to rule out stroke which was negative for any acute findings and showed only atrophy consistent with age. An MRI of her cervical spine was performed and showed moderate to severe multilevel degenerative changes with cord compression and myelomalacia most notably at C6- C7. Her MRI lumbar spine showed stable multilevel degenerative changes with L3- L4 moderate central canal stenosis and L4-L5 severe central canal stenosis with severe right and moderate left foraminal stenosis. Given these findings orthopedic spine was consulted and felt that her symptoms were likely somewhat related to the findings in her spine but felt that surgical intervention was not warranted and would not help her. Neurology was consulted as well and felt that this could likely be multifactorial but given the findings in her cervical and lumbar spine that was likely somewhat related to this and did not recommend any further work-up at this time. Of note she had a normal magnesium and thyroid function studies. Given her increased debility it was felt that she would need further rehabilitation and care prior to being discharged home and she was agreeable to discharge to TCU. She was discharged there in stable condition. No medication changes were made at this time. She will follow-up with her PCP at TCU. I do recommend follow-up with neurology with Dr. Coffman after discharge. I would also recommend referral by her PCP to pulmonology given her chronic elevation in her pulmonary artery systolic pressures. Discharge diagnoses: Bilateral upper and lower extremity weakness Bilateral distal lower extremity paresthesias/numbness Severe spinal stenosis with central cord compression in the cervical and lumbar spine Cervical myelomalacia Severe pulmonary artery hypertension Compensated chronic diastolic and RV HFpEF HPL Hypertension History of solitary kidney Arthrogryposis Chronic stable normocytic anemia-suspect related to chronic disease Physical Exam Const alert, oriented x3 and no apparent distress Constitutional Narrative: Obese, elderly white female lying in bed, appears comfortable and nontoxic, at bedside, multiple orthopedic abnormalities General Appearance: cooperative, comfortable and well kempt Orientation / Consciousness: awake Exam Limitations: no limitations Nutritional Appearance: obese HEENT normocephalic, head/scalp atraumatic and moist oral mucous membranes HEENT Narrative: [place], Mallampati 3, no thrush Eyes PERRL, EOMs intact bilaterally and conjunctivae normal Eyes Narrative: No scleral icterus Neck no lymphadenopathy and supple Neck Narrative: Short thick neck with significant decreased range of motion, trachea midline Resp normal respiratory effort, no retractions, no use of accessory muscles and clear to auscultation bilaterally Auscultation: Negative for crackles, rales, rhonchi or wheezes Cardio regular rate, regular rhythm, S1 normal heart sound, S2 normal heart sound, no murmurs, no rub, no gallops, no clicks and no JVD GI normal to inspection, nondistended, normoactive bowel sounds, soft to palpation, non-tender and non-distended Extremity no clubbing, cyanosis or edema Extremity Narrative: Contractures in her upper extremities with contractures on her hands. Unable to extend her fingers. Patient has shortened lower ex tremities as well as shortened digits on her feet. Skin no rashes or lesions noted, no wounds, skin turgor normal and no jaundice Neuro oriented x3 and CN's II-XII intact bilaterally Neuro Narrative: Limited strength in the upper extremities--> this is acute on chronic, decreased sensation distal bilateral lower extremities but normal above the knees Sensorium / Orientation: awake and alert Speech: speech normal Psych affect normal ABG / Lab / Microbiology Data Result Diagrams: 10/04/21 06:03 10/04/21 06:03 Discharge Plan Admission Admit Date/Time: 10/02/21 14:18 Primary Reason for Your Visit: Weakness, parasthesias Attending Provider: Naye Chu Primary Care Provider: Momo Carvajal Chi Consulting Providers: Myron Dickinson Discharge Orders/Prescriptions Prescriptions: Continued potassium chloride 10 MEQ tablet extended release 20 meq PO BID RF: 0 L.acidoph, paracasei,B. lactis 1 EACH capsule 1 ea PO DAILY RF: 0 furosemide 40 MG tablet 40 mg PO BID RF: 0 aspirin 81 MG tablet,chewable 81 mg PO DAILY@0800 RF: 0 lisinopril 5 MG tablet 5 mg PO DAILY RF: 0 calcium carbonate-vitamin D3 1 TAB tablet 2 tab PO DAILY RF: 0 Referrals / Follow Up: Momo Carvajal Chi, MD [Primary Care Provider] - Within 2 Weeks Gianni Coffman MD [NON-STAFF] - Within 3 Months Disposition Disposition (needs filled in before D/C Order can be placed): Alf Facility Charges/Coding Visit Charges Inpatient E&M: 48967 SNF Disch >30 Min
== END 2021-10-04 17:01 | disposition skilled nursing facility (03) | DRG 552 ==
LOC: ED 13:32 → PCU 14:38
PROVIDERS: Physician Assistant; Emergency Provider Emergency Medicine; PCP Family Medicine Geriatric Medicine; Visit Provider Internal Medicine
DX: M50.122 Cervical disc disorder at C5-C6 level with radiculopathy (principal); G95.20 Unspecified cord compression; G95.89 Other specified diseases of spinal cord; Z68.41 Body mass index [BMI] 40.0-44.9, adult; I50.32 Chronic diastolic (congestive) heart failure; M51.16 Intervertebral disc disorders with radiculopathy, lumbar region; M48.02 Spinal stenosis, cervical region; M48.061 Spinal stenosis, lumbar region without neurogenic claudication; R20.2 Paresthesia of skin; R20.0 Anesthesia of skin; R26.2 Difficulty in walking, not elsewhere classified; Q68.8 Other specified congenital musculoskeletal deformities; I11.0 Hypertensive heart disease with heart failure; I27.20 Pulmonary hypertension, unspecified; Z23 Encounter for immunization; Z20.822 Contact with and (suspected) exposure to COVID-19; D63.8 Anemia in other chronic diseases classified elsewhere; E78.5 Hyperlipidemia, unspecified; M25.551 Pain in right hip; R19.7 Diarrhea, unspecified; H91.93 Unspecified hearing loss, bilateral; E66.01 Morbid (severe) obesity due to excess calories; Z68.37 Body mass index [BMI] 37.0-37.9, adult; Z79.82 Long term (current) use of aspirin; Z79.899 Other long term (current) drug therapy; Z86.16 Personal history of COVID-19; Z90.5 Acquired absence of kidney
CPT/HCPCS: 36415; 70450; 70551; 72141; 72148; 73521; 80048; 80061; 81001; 83735; 84443; 84484; 85025; 87426; 93005; 93306; 97110; 97162; 97167; 97530; 99285; G0008; P9612; 90686; A4216

== ENCOUNTER 2021-10-04 17:01 | Inpatient (IN) | payer MEDICARE, OTHER, SELFPAY ==
[2021-10-04 17:14] VITALS: BP 112/69; PULSE 86; RESP 17; TEMP 35.9; O2SAT 92; BMI 37.4
--- NOTE | 2021-10-04 19:14 | HP.PCM_ITS ---
HPI - General General Date of Admission: 10/04/21 HPI Narrative 10/02/2021 ABRAN SAENZ, is a 81 Female who presents to [facility] Emergency Department with numbness, tingling, weakness. Worsening numbness all over, right lower extremity x 1 month, then left lower extremity. Back of arms as well. Ambulates using braces for both legs. History of arthrogryposis. Hard to walk secondary to numbness. Diarrhea. Blood, urine, Chest X-ray, CT brain negative. Consider Guillain [place] syndrome. 10/02/2021 Admit to Hospital. Positive covid-19 09/11/2021, received monoclonal antibody. MRI brain, MRI cervical spine, MRI lumbosacral spine to evaluate for radiculopathy. Patient declined lumbar puncture to evaluate for Guillain [place] syndrome. 10/02/2021 Echo normal Left Ventricle size. Mild concentric Left ventricular hypertrophy. Left ventricular systolic function normal. Stage 1 diastolic dysfunction. Pulmonary artery systolic pressure 89mm hg. Severe pulmonary hypertension. 10/03/2021 MRI brain negative. MRI of spine showed severe cervical spinal stenosis, severe lumbar spinal stenosis. Consult Dr. Dickinson. 10/04/2021 Dr. Dickinson did NOT think surgery would be helpful due to chronicity of problem, and high risk with comorbidities. 10/04/2021 Admit to TCU with debility, here for rehabilitation, strengthening, prior to discharge home with . [facility] Medical History Acute congestive heart failure Arthrogryposis COVID-19 Diastolic CHF Hearing loss, left Hearing loss, right HLD (hyperlipidemia) HTN (hypertension) Hypoxia Kidney disease Morbid obesity with BMI of 40.0-44.9, adult Non-smoker Pneumonia S/p nephrectomy SBO (small bowel obstruction) Sepsis Shortness of breath Single kidney Wears hearing aid in both ears Home Medications aspirin 81 mg PO DAILY@0800 07/12/15 [History Last Taken 10/01/21] calcium carbonate-vitamin D3 1 tab PO DAILY 07/12/15 [History Last Taken 09/12 12/01] lisinopril 5 mg PO DAILY 07/12/15 [History Last Taken 10/01/21] L.acidoph, paracasei,B. lactis 1 ea PO DAILY 03/22/19 [History Last Taken 10/01/21] furosemide 40 mg PO BID 03/22/19 [History Last Taken 10/01/21] potassium chloride 20 meq PO BID 03/22/19 [History Last Taken 10/01/21] Allergy/AdvReac Type Severity Reaction Status Date / Time No Known Allergies Allergy Verified 10/02/21 11:04 Surgical History H/O section History of orthopedic surgery S/p nephrectomy Status post laparoscopy Social History (Updated 10/04/21 @ 19:[address] Momo Carvajal MD) household members: spouse Smoking Status: Never smoker alcohol intake: never substance use type: does not use ROS Constitutional Constitutional: Denies chills, fever(s) or weight gain ENT HEENT: Denies headache(s), nasal congestion or nasal discharge Cardiovascular Cardiovascular: Denies chest pain or palpitations Respiratory/Chest Respiratory/Chest: Denies cough, excessive phlegm production or shortness of breath with exertion Gastrointestinal Gastrointestinal: Denies abdominal pain, nausea or vomiting Genitourinary Genitourinary: Denies dysuria Musculoskeletal Musculoskeletal: Denies joint pain or joint swelling Integumentary Integumentary: Denies rash or wounds Neurologic Neurologic: Denies focal weakness, numbness or tingling Psychiatric Psychiatric: Denies anxiety, depression, homicidal ideation or suicidal ideation Vital Signs Vital Signs Vital Signs: 10/04/21 17:14 Temperature 96.7 F L Temperature Source Oral Pulse Rate 86 Respiratory Rate 17 Blood Pressure 112/69 Blood Pressure Mean 83 Blood Pressure Source Monitor Blood Pressure Position Supine Blood Pressure Location Left Arm Pulse Ox 92 Oxygen Delivery Method Room Air Weight Weight: 78.517 kg Body Mass Index (BMI) 37.4 Physical Exam Const alert and oriented x3 General Appearance: cooperative HEENT normocephalic Eyes PERRL and EOMs intact bilaterally Neck supple, no JVD and no carotid bruits Resp normal respiratory effort, normal air movement and clear to auscultation bilaterally Cardio regular rate and regular rhythm GI normal to inspection, nondistended, normoactive bowel sounds, non-tender and non-distended Extremity normal capillary refill General Extremity: Negative for edema Skin no rashes or lesions noted General Skin Exam: no breakdown Neuro Neuro Narrative: Bilateral lower extremity weakness, right worse than left. Psych affect normal Appearance: appropriate Assessment & Plan Assessment/Plan (1) Debility: (2) Weakness: (3) COVID-19: (4) Cervical stenosis of spinal canal: (5) Lumbar stenosis: (6) Pulmonary hypertension: (7) Arthrogryposis: (8) Hypertension: (9) Hyperlipidemia: (10) Edema: (11) Hypokalemia: PLAN: 81 year old female with below past medical history significant for recent covid-19, arthrogryposis, hospitalized for weakness, numbness of legs, secondary to severe cervical spinal stenosis, severe lumbar spinal stenosis, not surgical candidate, unable to rule out Guillain [place] due to patient declining lumbar puncture, admitted to TCU with debility, here for rehabilitation, strengthening, prior to discharge home with . * Debility - PT/OT. * Pain - Tylenol 1000mg q6h prn pain (1-10). * Bowel - senna/colace 1 tablet twice daily, Dulcolax 10mg daily prn. * Adult immunization - Administer prevnar 13, pneumovax 23, fluzone, covid19 vaccine as appropriate. * DVT prophylaxis - Hold anemia. * CV prophylaxis - Aspirin 81mg daily. * Calcium deficiency - Calcium D 1 tablet daily. * Edema - Furosemide 40mg twice daily. * Hypokalemia - Potassium chloride 20meq twice daily. * Hypertension - Lisinopril 5mg daily. * GI prophylaxis - Lactobacillus 1 tablet daily. * Cervical/lumbar spinal stenosis - Not surgical candidate, if functional status declines, resident may need extended care facility placement, Sebas unable to care for her at home.
[2021-10-05] MEDS: Menthol/Lanolin/Calamine/Znox 113 GM Tube 1 APPLIC TOPICAL ×2 (06:52→17:12)
[2021-10-05] MEDS: Furosemide 40 MG Tablet PO ×2 (06:52→17:08)
[2021-10-05] MEDS: Lisinopril 5 MG Tablet PO (06:52)
[2021-10-05] MEDS: Senna/Docusate Sodium 1 Tablet PO ×2 (06:53→17:09)
[2021-10-05] MEDS: Nystatin Powder 15gm Bottle 1 APPLIC TOPICAL ×2 (06:53→17:11)
[2021-10-05 07:05] VITALS: O2SAT 98
[2021-10-05 07:55] LABS: Absolute Lymphocyte Count 1.05 X10^3/uL (0.83-4.51); Absolute Neutrophil Count 4.1 X10^3/uL (2.0-7.7); Basophil# 0.04 X10^3/uL; Basophil% 0.7 % (0-1); Eosinophils% 1.7 % (0-5); Hemoglobin 9.9 g/dL (12.0-15.0); Lymphocyte # 1.05 X10^3/ul (0.83-4.51); Lymphocyte % 17.4 % (19-41); Mean Corp Hgb Conc 31.9 g/dL (32-36); Mean Corpuscular Hgb 30.7 pg (27.0-32.0); Monocyte# 0.75 X10^3/uL; Monocyte% 12.4 % (0-10); NRBC Flagged by Analyzer 0 % (0-5); Neutrophil # 4.08 X10^3/uL (2.7-7.7); Neutrophil % 67.3 % (47-70); Platelet Count 417 K/mm3 (150-450); RBC Distribution Width CV 14.8 % (11.6-14.6); RBC Distribution Width SD 52.2 fl (35.1-43.9); Red Blood Count 3.23 M/mm3 (4.2-5.4); White Blood Count 6.1 K/mm3 (4.4-11.0)
[2021-10-05] MEDS: Potassium Chloride Oral Tablet 20 MEQ PO ×2 (07:57→17:08)
[2021-10-05] MEDS: Aspirin 81 MG TAB.CHEW PO (07:57)
[2021-10-05] MEDS: Calcium Carb/Vitamin D 1 TABLET Tablet PO (07:57)
--- NOTE | 2021-10-05 08:16 | CPS ---
Pt wears O2 HS
[2021-10-05 08:57] LABS: Anion Gap 6 (5-15); BUN 16 mg/dL (7-18); BUN/Creat Ratio 33.4 RATIO (10-20); Calcium,Total 8.7 mg/dL (8.5-10.1); Chloride 102 mmol/L (98-107); Creatinine, Serum 0.48 mg/dL (0.55-1.02); EST Glomerular Filtration Rate 133 mL/min (>60); Est Glom Filt Rate - Afr Amer 161 mL/min (>60); Estimated Creatinine Clearance 56.54 ml/min; Glucose 85 mg/dL (74-106); Potassium 4.3 mmol/L (3.5-5.1); Sodium Level 136 mmol/L (136-145)
[2021-10-05] MEDS: Tuberculin,Purif.prot.deriv. 50 TU/ML Vial 0.1 ML ID (09:50)
[2021-10-05 13:54] VITALS: BP 118/65; PULSE 98; RESP 16; TEMP 36.3; O2SAT 97
[2021-10-06] VITALS (8 sets, daily range): BP systolic 92–115; BP diastolic 52–84; PULSE 83–102; RESP 18; TEMP 36.2–36.4; O2SAT 91–95
[2021-10-06] MEDS: Lisinopril 5 MG Tablet PO (06:34)
[2021-10-06] MEDS: Nystatin Powder 15gm Bottle 1 APPLIC TOPICAL ×2 (06:34→18:31)
[2021-10-06] MEDS: Furosemide 40 MG Tablet PO (06:34)
[2021-10-06] MEDS: Menthol/Lanolin/Calamine/Znox 113 GM Tube 1 APPLIC TOPICAL ×2 (06:35→18:31)
[2021-10-06] MEDS: Potassium Chloride Oral Tablet 20 MEQ PO ×2 (07:33→18:28)
[2021-10-06] MEDS: Aspirin 81 MG TAB.CHEW PO (07:33)
[2021-10-06] MEDS: Calcium Carb/Vitamin D 1 TABLET Tablet PO (07:33)
[2021-10-06] MEDS: Acetaminophen 500 MG Tablet 1000 MG PO (14:00)
--- NOTE | 2021-10-06 14:12 | CASEMGMT ---
Social Work SW met with pt and spouse and completed assessment. SW discussed code status and assisted pt in completing MOLST form. Pt wishes for full code with intubation. Communication to physician and MOLST form placed in chart. Physician requesting palliative referral. Referral made to [facility]. SW explained Medicare benefit and encouraged pt spouse to contact secondary insurance to ensure copy coverage. Pt plans to return home with her who is able to provide care needed. SW to continue to follow. STEPHEN Witt
--- NOTE | 2021-10-06 15:07 | EKG12_ITS ---
Test Reason : Blood Pressure : / mmHG Vent. Rate : 114 BPM Atrial Rate : 090 BPM P-R Int : 204 ms QRS Dur : 060 ms QT Int : 314 ms P-R-T Axes : 062 005 053 degrees QTc Int : 432 ms Sinus rhythm Low voltage QRS Abnormal ECG Confirmed by JASON PRYOR, BREANA ([id number]), editor department ROSANA NIETO ([id number]) on 10/11/2021 9:29:58 AM Referred By: LORENA Confirmed By:BREANA GOMEZ MD
--- NOTE | 2021-10-06 15:11 | NURSING ---
Addendum entered by Edel Chavez 10/06/21 16:14: Dr. Carvajal updated on EKG, N.O. nitro 0.4mg x1 dose and reassess in five minutes if chest pain does not subside send to ER. Pt and who is still at bedside was updated on New orders, BP Obtained and was 110/84 before nitro administration. BP was rechecked 5 mins after administration and was 109/79. and HR 102. Pt denies any pain and does not want to go to ER at this time. Pt encouraged to drink extra fluid d/t hypotension potential from nitroglycerin administration. Pt repositioned and resting comfortably in bed at this time. Original Note: LOGGING TRUCK DRIVER came and got this nurse and notified of low blood pressure. This nurse assessed pt and took manual blood pressure of 92/58, pt denies dizziness but did say she was feeling SOB and had some pressure in her chest that felt like someone was sitting on it. SPO2 85% on room air 2 Liters O2 applied and pt recovered to 97%. Pt felt chest pressure was d/t positioning so pt was repositioned per request. When asked if positioning was helping her pain she stated not really. Pt did not want to go to ED at this time for eval, but when asked if she was willing to have EKG done on the floor, pt stated that was ok. This nurse notified Dr. Carvajal and was given verbal order for STAT EKG. RT was called and updated on need for STAT EKG. at bedside and is aware of clinical situation and new order.
[2021-10-06] MEDS: Nitroglycerin (INPATIENT USE) 0.4 MG TAB.SUBL SL (16:01)
[2021-10-07 04:56] VITALS: BP 103/54; PULSE 78; RESP 16; TEMP 35.7; O2SAT 94
[2021-10-07 06:50] VITALS: O2SAT 96
[2021-10-07] MEDS: Potassium Chloride Oral Tablet 20 MEQ PO ×2 (09:34→17:13)
[2021-10-07] MEDS: Aspirin 81 MG TAB.CHEW PO (09:34)
[2021-10-07] MEDS: Calcium Carb/Vitamin D 1 TABLET Tablet PO (09:34)
[2021-10-07 14:24] VITALS: BP 111/67; PULSE 76; RESP 14; TEMP 36.2; O2SAT 93
[2021-10-07] MEDS: Furosemide 40 MG Tablet PO (17:14)
[2021-10-07] MEDS: Acetaminophen 500 MG Tablet 1000 MG PO (17:14)
[2021-10-07] MEDS: Nystatin Powder 15gm Bottle 1 APPLIC TOPICAL (17:17)
[2021-10-07] MEDS: Menthol/Lanolin/Calamine/Znox 113 GM Tube 1 APPLIC TOPICAL (17:17)
[2021-10-08 05:00] VITALS: BP 95/51; PULSE 86; RESP 16; TEMP 36.3; O2SAT 99
[2021-10-08] MEDS: Menthol/Lanolin/Calamine/Znox 113 GM Tube 1 APPLIC TOPICAL ×2 (05:57→17:41)
[2021-10-08] MEDS: Nystatin Powder 15gm Bottle 1 APPLIC TOPICAL ×2 (05:57→17:42)
[2021-10-08] MEDS: Senna/Docusate Sodium 1 Tablet PO (05:58)
[2021-10-08] MEDS: Lisinopril 5 MG Tablet PO (05:58)
--- NOTE | 2021-10-08 06:04 | NURSING ---
Fei held at this time due to low BP. Will pass along in report to oncoming nurse.
[2021-10-08] MEDS: Aspirin 81 MG TAB.CHEW PO (09:21)
[2021-10-08] MEDS: Calcium Carb/Vitamin D 1 TABLET Tablet PO (09:22)
[2021-10-08] MEDS: Potassium Chloride Oral Tablet 20 MEQ PO ×2 (09:22→17:37)
[2021-10-08 10:34] VITALS: BP 99/50; PULSE 84
[2021-10-08 14:27] VITALS: BP 87/48; PULSE 86; RESP 20; TEMP 36.5; O2SAT 93
[2021-10-08 14:30] VITALS: BP 89/46
[2021-10-08 17:43] VITALS: BP 98/56; PULSE 88; RESP 18; O2SAT 94
[2021-10-09 06:29] VITALS: O2SAT 94
[2021-10-09] MEDS: Acetaminophen 500 MG Tablet 1000 MG PO (06:35)
[2021-10-09] MEDS: Furosemide 40 MG Tablet PO ×2 (06:36→17:18)
[2021-10-09] MEDS: Nystatin Powder 15gm Bottle 1 APPLIC TOPICAL ×2 (06:41→17:15)
[2021-10-09] MEDS: Menthol/Lanolin/Calamine/Znox 113 GM Tube 1 APPLIC TOPICAL ×2 (06:41→17:14)
[2021-10-09 06:42] VITALS: BP 112/50; BP 99/54; PULSE 83; RESP 18; O2SAT 99
--- NOTE | 2021-10-09 06:42 | NURSING ---
Held Lisinopril due to low blood pressure. RN aware.
[2021-10-09] MEDS: Potassium Chloride Oral Tablet 20 MEQ PO ×2 (07:43→17:14)
[2021-10-09] MEDS: Calcium Carb/Vitamin D 1 TABLET Tablet PO (07:43)
[2021-10-09] MEDS: Aspirin 81 MG TAB.CHEW PO (07:43)
--- NOTE | 2021-10-09 12:45 | PCM.PN.RX ---
Progress Note - Pharmacy Subjective: [] TCU Admission Objective: Allergies No Known Allergies Allergy (Verified 10/02/21 11:04) Current Medications Generic Name Dose Route Start Last Admin Trade Name Deborah PRN Reason Stop Dose Admin Acetaminophen 1,000 mg 10/04/21 19:31 10/09/21 06:35 Acetaminophen 500 Mg Tablet PO 1,000 mg Q6H PRN PRN Administration Pain Score 1-10 Aspirin 81 mg 10/05/21 08:00 10/09/21 07:43 Aspirin 81 Mg Tab.Chew PO 81 mg DAILY@0800 KRZYSZTOF Administration Bisacodyl 10 mg 10/04/21 19:31 Bisacodyl 5 Mg Tablet PO DAILY PRN CONSTIPATION Calamine/Phenol 1 applic 10/05/21 06:00 10/09/21 06:41 Menthol/Lanolin/Calamine/Znox 113 Gm Tube TOPICAL 1 applic BID KRZYSZTOF Administration Protocol Calcium/Vitamin D 1 tablet 10/05/21 08:00 10/09/21 07:43 Calcium Carb/Vitamin D 1 Tablet Tablet PO 1 tablet 0800 KRZYSZTOF Administration Furosemide 40 mg 10/05/21 06:00 10/09/21 06:36 Furosemide 40 Mg Tablet PO 40 mg BID KRZYSZTOF Administration Lactobacillus Acidophilus 1 tablet 10/05/21 06:00 10/09/21 06:36 Lactobacillus Acidophilus PO 1 tablet DAILY KRZYSZTOF Administration Multi-Ingredient Cream 1 applic 10/05/21 03:00 Mineral Oil/Petrolatum,White Jar TOPICAL BID PRN PRN DRY SKIN Protocol Nitroglycerin 0.4 mg 10/06/21 15:46 10/06/21 16:01 Nitroglycerin (Inpatient Use) 0.4 Mg Tab.Subl SL 0.4 mg Q5M PRN Administration CARDIAC/CHEST PAIN Nystatin 1 applic 10/05/21 06:00 10/09/21 06:41 Nystatin Powder 15gm Bottle TOPICAL 1 applic BID KRZYSZTOF Administration Protocol Potassium Chloride 20 meq 10/05/21 08:00 10/09/21 07:43 Potassium Chloride Oral Tablet 20 Meq PO 20 meq BIDCM KRZYSZTOF Administration Senna/Docusate Sodium 1 tablet 10/05/21 06:00 10/09/21 06:30 Senna/Docusate Sodium 1 Tablet PO Not Given BID KRZYSZTOF Tuberculin PPD 0.1 ml 10/12/21 10:00 Tuberculin,Purif.Prot.Deriv. 50 Tu/Ml Vial ID 10/12/21 10:01 X1 ONE Problem List (Last Reviewed 10/04/21 @ 19:[address] Momo Carvajal MD) Hypokalemia (Acute) Edema (Acute) Hyperlipidemia (Acute) Hypertension (Chronic) Arthrogryposis (Acute) Pulmonary hypertension (Acute) COVID-19 (Acute) Weakness (Acute) Debility (Acute) Lumbar stenosis (Acute) Cervical stenosis of spinal canal (Acute) Vital Signs Temp Pulse Resp BP Pulse Ox 97.7 F L 83 18 112/50 L 99 10/08/21 14:27 10/09/21 06:42 10/09/21 06:42 10/09/21 06:42 10/09/21 06:42 Oxygen Flow Rate (L/min) 2 Oxygen Delivery Method Room Air Weight: 78.517 kg Body Mass Index (BMI) 37.4 Sodium 136 mmol/L (136-145) 10/05/21 07:50 Potassium 4.3 mmol/L (3.5-5.1) 10/05/21 07:50 Chloride 102 mmol/L (98-107) 10/05/21 07:50 Carbon Dioxide 28.0 mmol/L (21.0-32.0) 10/05/21 07:50 Anion Gap 6 (5-15) 10/05/21 07:50 BUN 16 mg/dL (7-18) 10/05/21 07:50 Creatinine 0.48 mg/dL (0.55-1.02) L 10/05/21 07:50 Est GFR (MDRD) Af Amer 161 mL/min (>60) 10/05/21 07:50 Est GFR (MDRD) Non-Af 133 mL/min (>60) 10/05/21 07:50 BUN/Creatinine Ratio 33.4 RATIO (10-20) H 10/05/21 07:50 Glucose 85 mg/dL (74-106) 10/05/21 07:50 Assessment/Plan: 1) Pain: Acetaminophen 1000mg po q6h prn for pain score 1-10. Please continue to monitor prn usage and for signs/symptoms of increased/decreased pain 2) Edema: Furosemide 40mg po bid. Pts Na is 136, K+ is 4.3, SrCr is 0.48. Please continue to monitor. 3) Hypokalemia: Potassium 20meq po bid. Pts K+ is 4.3. Please continue to monitor. 4) Calcium Deficiency: Calcium with D 1 tablet daily. Pts calcium is 8.7. Please continue to monitor. Psychotropic Medications: none Unnecessary Medications: none Bowel Regimen: Bisacodyl 10mg po daily prn for constipation, Senna/Docusate 1 tablet po bid. Please continue to monitor prn usage and for signs/symptoms of constipation/diarrhea Date of Note:: 10/09/21
--- NOTE | 2021-10-09 14:45 | NURSING ---
Pt has chronic numbness\tingling to BLE
--- NOTE | 2021-10-09 14:46 | NURSING ---
Pt has chronic numbness/tingling in BLE that is causing a lot of discomfort, talked with pt about medications for neuropathic pain, pt is apprehensive d/t renal functioning, Message left for Dr. Carvajal to update on sx and appropriate tx for renal function.
[2021-10-09 17:19] VITALS: BP 114/72; PULSE 91
[2021-10-09] MEDS: Gabapentin 100 MG Capsule PO (18:12)
[2021-10-10] MEDS: Furosemide 40 MG Tablet PO ×2 (06:13→17:55)
[2021-10-10] MEDS: Menthol/Lanolin/Calamine/Znox 113 GM Tube 1 APPLIC TOPICAL ×2 (06:14→21:56)
[2021-10-10] MEDS: Nystatin Powder 15gm Bottle 1 APPLIC TOPICAL ×2 (06:15→21:56)
[2021-10-10] MEDS: Calcium Carb/Vitamin D 1 TABLET Tablet PO (08:42)
[2021-10-10] MEDS: Aspirin 81 MG TAB.CHEW PO (08:42)
[2021-10-10] MEDS: Potassium Chloride Oral Tablet 20 MEQ PO ×2 (08:42→17:55)
[2021-10-10] MEDS: Gabapentin 100 MG Capsule PO ×3 (08:44→17:55)
[2021-10-10] MEDS: Acetaminophen 500 MG Tablet 1000 MG PO (08:46)
[2021-10-10 11:00] VITALS: BP 109/60; PULSE 87; RESP 22; TEMP 36; O2SAT 91
--- NOTE | 2021-10-10 16:22 | CON.PCM.PA_ITS ---
Assessment & Plan Assessment/Plan (1) Weakness: (2) Numbness and tingling: (3) Arthrogryposis: (4) Pulmonary hypertension: (5) Lumbar stenosis: (6) Cervical stenosis of spinal canal: (7) Cervical cord myelomalacia: (8) Bilateral leg weakness: PLAN: 81-year-old female with history of arthrogryposis, recent decline in mobility and function, seen today for palliative consultation for supportive management and possibly management of numbness and tingling. She had significant findings on lumbar and cervical MRIs. Surgery was not recommended. 1. Weakness: Likely due to her spinal abnormalities as noted above. She is participating in therapy, frustrated she is still not able to walk. We discussed her diagnoses and comorbid conditions. 2. Numbness and tingling: Has been progressing the last few weeks, painful. She takes Tylenol at home for pain, currently has an order for 1 g p.o. every 6 hours as needed. Patient would likely benefit from medication such as Lyrica or gabapentin for her nerve pain. She is reluctant to take any kind of medication at this point, however will consider in the future. 3. Arthrogryposis/pulmonary hypertension/cervical cord myelomalacia: Complicates overall care, management, recovery, and prognosis. Patient has significant pulmonary hypertension and should follow-up with a digital recruiter upon discharge. She is not a surgical candidate for correction of her lumbar and cervical spine abnormalities. We did review her medications. Thank you for the opportunity to participate in this patient's care, please do not hesitate to contact [facility] with any further questions or concerns. Palliative direct line is [phone]. We will follow up after discharge and will discuss palliative services further at that time. Liaison will be contacting the patient's for further discussion. Greater than 50% of F2F visit dedicated to education and counseling of palliative care services, medications, comorbid conditions and potential assistance with management, and plan of care moving forward. Start time: 1623 End time: 1710 HPI Consult Data Date of Consult: 10/10/21 HPI Narrative HPI Narrative: ABRAN SAENZ, is a 81 F who presented to [facility] 10/04/2021 with complaints of increased numbness, tingling, and weakness for the past several weeks. She also had some numbness to the back of her arms. Patient has a history of arthrogryposis and ambulates using braces for bilateral lower extremities. She was having some diarrhea and increased difficulty ambulating. Patient had Covid 09/11/21 and received monoclonal antibodies. She was admitted for further evaluation and management. Patient had CT the brain that showed cerebral atrophy and evidence of microvascular disease changes. There was nothing acute. Hip and pelvis x-ray showed no evidence of acute fracture. MRI of the brain showed mild atrophy and periventricular white matter ischemic changes, no evidence of acute infarct. C- spine MRI showed moderate to severe multilevel degenerative changes with cord compression and myelomalacia. Lumbar MRI revealed stable multilevel degenerative changes, L3/L4 moderate central canal stenosis, L4/L5 level with severe central canal stenosis and severe right and moderate left foraminal stenosis. An echocardiogram 10/02/2021 showed mild concentric LVH, normal LV systolic function and size, stage I diastolic dysfunction, RVSP estimated at 84 mmHg (severe pulmonary hypertension), small pericardial effusion. Dr. Dickinson was consulted for severe weakness with abnormal MRI C-spine and lumbar spine. They did not believe this was a severe case of Rachel VegaSean. Thought possibly some of her symptoms were related to her cervical and lumbar spine abnormalities. No changes were made to her medications. There was also an orthopedic surgeon consult who did not believe any surgical intervention was indicated nor would it be beneficial to the patient. It was then recommended patient discharged to TCU for further rehab and strengthening. It is also noted that her , Sebas is unable to care for her at home in the condition she is currently in. They are monitoring her functional status and she may need extended care facility placement. Patient was recently at the [place] after being diagnosed with Covid, however signed herself out. Patient lives in a one-story home with her , no steps to enter. Her drives her to any appointments. She does have DME in the home including her leg braces, raised toilet seat, wheelchair, and electric scooter. Her spouse Sebas is her healthcare POA. She uses [facility] for pharmacy. Patient denies any current chest pain, shortness of breath, N/V/D. Bowels are moving okay, no abdominal pain. She does have significant bilateral lower extremity numbness and tingling, worse with bearing weight. States she puts her leg braces on and tries to ambulate, however her legs do not want to move. Denies any dysphagia. Her appetite has been fair. No significant skin issues [facility] Medical History Acute congestive heart failure Arthrogryposis COVID-19 Diastolic CHF Hearing loss, left Hearing loss, right HLD (hyperlipidemia) HTN (hypertension) Hypoxia Kidney disease Morbid obesity with BMI of 40.0-44.9, adult Non-smoker Pneumonia S/p nephrectomy SBO (small bowel obstruction) Sepsis Shortness of breath Single kidney Wears hearing aid in both ears Home Medications aspirin 81 mg PO DAILY@0800 07/12/15 [History Last Taken 10/01/21] calcium carbonate-vitamin D3 1 tab PO DAILY 07/12/15 [History Last Taken 10/01/21] lisinopril 5 mg PO DAILY 07/12/15 [History Last Taken 10/01/21] L.acidoph, paracasei,B. lactis 1 ea PO DAILY 03/22/19 [History Last Taken 10/01/21] furosemide 40 mg PO BID 03/22/19 [History Last Taken 10/01/21] potassium chloride 20 meq PO BID 03/22/19 [History Last Taken 10/01/21] Allergy/AdvReac Type Severity Reaction Status Date / Time No Known Allergies Allergy Verified 10/02/21 11:04 Surgical History H/O section History of orthopedic surgery S/p nephrectomy Status post laparoscopy Social History household members: spouse Smoking Status: Never smoker alcohol intake: never substance use type: does not use ROS ROS Narrative Review of systems otherwise negative from a constitutional, HEENT, respiratory, cardiovascular, GI, genitourinary, musculoskeletal, skin, neurologic, psychia tric and hematologic system unless stated above. Physical Exam Const alert, oriented x3 and no apparent distress General Appearance: cooperative HEENT normocephalic and head/scalp atraumatic Neck supple General: trachea midline Resp normal respiratory effort Auscultation: clear to auscultation bilaterally and diminished lung sounds Cardio regular rate, regular rhythm, S1 normal heart sound and S2 normal heart sound GI normal to inspection, nondistended, normoactive bowel sounds Skin no rashes or lesions noted Neuro CN's II-XII intact bilaterally and no focal motor deficits Neuro Narrative: Upper extremity contractures, chronic. Atrophy lower extr emities. Significant abnormalities to spine/kyphosis, shortened neck. Significant numbness and tingling to the lower extremities, worse with bearing weight. Gait (Neuro): unable to assess gait Psych mental status grossly normal Attitude: calm and engaged Activity / Motor Behavior: appropriate eye contact Speech: normal speech
--- NOTE | 2021-10-10 16:38 | CHAPLAIN ---
Type of Pastoral Visit _x__ Initial Visit ___ Follow-up Visit ___ On-call Visit ___ General Patient Visit ___ Spiritual Assessment ___ Family Conference ___ Bereavement ___ Rapid Response ___ Code Blue ___ Other (describe below) Pastoral Care Referral From _x__ Patient ___ Family ___ Nurse ___ Physician ___ Product Safety Manager ___ Inspector [employer] ___ Other (describe below) Sacrament/Intervention __x_ Active listening ___ Anointing ___ Methodist ___ Bereavement ___ Communion ___ Dulce exploration ___ ___ Life review _x__ Prayer ___ Reconciliation ___ Sacrament of Sick _x__ Supportive presence ___ Wedding ___ Other (describe below) Pastoral Comments met this patient in PCU last week; follow up to see how pt is doing and she reports it is going fine; pt had visitors and therapy today and states it has been a good day; pt wonders if her gastroenterology technician can/will come to visit her
--- NOTE | 2021-10-10 16:48 | NURSING ---
DOUGLAS FROM PALLIATIVE CARE IN TO SEE PT.
[2021-10-11] MEDS: Nystatin Powder 15gm Bottle 1 APPLIC TOPICAL ×2 (06:26→18:02)
[2021-10-11] MEDS: Furosemide 40 MG Tablet PO ×2 (06:26→18:03)
[2021-10-11] MEDS: Menthol/Lanolin/Calamine/Znox 113 GM Tube 1 APPLIC TOPICAL ×2 (06:26→18:02)
[2021-10-11] MEDS: Senna/Docusate Sodium 1 Tablet PO ×2 (06:26→18:03)
[2021-10-11 08:30] VITALS: PULSE 81; RESP 18; O2SAT 97
[2021-10-11] MEDS: Gabapentin 100 MG Capsule PO ×3 (08:37→18:03)
[2021-10-11] MEDS: Potassium Chloride Oral Tablet 20 MEQ PO ×2 (08:37→18:02)
[2021-10-11] MEDS: Aspirin 81 MG TAB.CHEW PO (08:37)
[2021-10-11] MEDS: Calcium Carb/Vitamin D 1 TABLET Tablet PO (08:38)
--- NOTE | 2021-10-11 10:34 | CASEMGMT ---
Social Work IDT met with patient and for care plan meeting. Discussed patient's progress in PT/OT and nursing. assist pt at baseline and uses electric scooter. Palliative care is active with pt. Explained Medicare benefit and encouraged to contact insurance to ensure copay coverage. The goal is for pt to return home at [facility]. SW to continue to follow for discharge planning. SUE Nance NATIONAL FACILITIES MANAGER
[2021-10-11 14:06] VITALS: BP 110/61; PULSE 97; RESP 20; TEMP 36.1; O2SAT 93
[2021-10-11 14:10] VITALS: O2SAT 94
[2021-10-12] MEDS: Furosemide 40 MG Tablet PO ×2 (05:31→17:42)
[2021-10-12] MEDS: Senna/Docusate Sodium 1 Tablet PO ×2 (05:31→17:42)
[2021-10-12] MEDS: Acetaminophen 500 MG Tablet 1000 MG PO (05:34)
[2021-10-12] MEDS: Menthol/Lanolin/Calamine/Znox 113 GM Tube 1 APPLIC TOPICAL ×2 (05:38→17:46)
[2021-10-12] MEDS: Nystatin Powder 15gm Bottle 1 APPLIC TOPICAL ×2 (05:38→17:45)
[2021-10-12 05:39] VITALS: BP 110/55; PULSE 84; RESP 18; TEMP 36.2; O2SAT 98
[2021-10-12 05:57] LABS: Absolute Lymphocyte Count 1.19 X10^3/uL (0.83-4.51); Absolute Neutrophil Count 4.8 X10^3/uL (2.0-7.7); Basophil# 0.06 X10^3/uL; Basophil% 0.9 % (0-1); Eosinophil# 0.11 X10^3/uL; Eosinophils% 1.6 % (0-5); Hematocrit 30.9 % (37-47); Hemoglobin 9.8 g/dL (12.0-15.0); Lymphocyte # 1.19 X10^3/ul (0.83-4.51); Lymphocyte % 17.1 % (19-41); Mean Corp Hgb Conc 31.7 g/dL (32-36); Mean Corpuscular Hgb 30.7 pg (27.0-32.0); Mean Corpuscular Volume 96.9 fL (81-99); Mean Platelet Vol. 10.6 fl (6.2-12.0); Monocyte# 0.78 X10^3/uL; Monocyte% 11.2 % (0-10); NRBC Flagged by Analyzer 0 % (0-5); Neutrophil # 4.78 X10^3/uL (2.7-7.7); Neutrophil % 68.6 % (47-70); Platelet Count 368 K/mm3 (150-450); RBC Distribution Width CV 14.3 % (11.6-14.6); RBC Distribution Width SD 50.8 fl (35.1-43.9); Red Blood Count 3.19 M/mm3 (4.2-5.4)
[2021-10-12 06:28] LABS: Anion Gap 6 (5-15); BUN 16 mg/dL (7-18); BUN/Creat Ratio 34.6 RATIO (10-20); Calcium,Total 8.7 mg/dL (8.5-10.1); Chloride 97 mmol/L (98-107); Creatinine, Serum 0.46 mg/dL (0.55-1.02); EST Glomerular Filtration Rate 138 mL/min (>60); Est Glom Filt Rate - Afr Amer 167 mL/min (>60); Estimated Creatinine Clearance 56.54 ml/min; Glucose 83 mg/dL (74-106); Potassium 4.7 mmol/L (3.5-5.1); Sodium Level 132 mmol/L (136-145)
[2021-10-12] MEDS: Calcium Carb/Vitamin D 1 TABLET Tablet PO (08:17)
[2021-10-12] MEDS: Gabapentin 100 MG Capsule PO ×3 (08:17→17:42)
[2021-10-12] MEDS: Potassium Chloride Oral Tablet 20 MEQ PO ×2 (08:17→17:42)
[2021-10-12] MEDS: Aspirin 81 MG TAB.CHEW PO (08:17)
[2021-10-12] MEDS: Tuberculin,Purif.prot.deriv. 50 TU/ML Vial 0.1 ML ID (10:09)
[2021-10-12 13:09] VITALS: O2SAT 98
[2021-10-12 14:12] VITALS: PULSE 68; RESP 19; TEMP 36.1; O2SAT 92
[2021-10-12 15:16] VITALS: BP 106/52; PULSE 89
[2021-10-12 17:47] VITALS: BP 115/59; PULSE 92
[2021-10-13] VITALS (8 sets, daily range): BP systolic 100–135; BP diastolic 47–73; PULSE 88–102; RESP 16–22; TEMP 36.1–36.2; O2SAT 76–98
[2021-10-13] MEDS: Nitroglycerin (INPATIENT USE) 0.4 MG TAB.SUBL SL (06:02)
[2021-10-13] MEDS: Acetaminophen 500 MG Tablet 1000 MG PO (06:05)
[2021-10-13] MEDS: Menthol/Lanolin/Calamine/Znox 113 GM Tube 1 APPLIC TOPICAL ×2 (06:09→17:24)
[2021-10-13] MEDS: Nystatin Powder 15gm Bottle 1 APPLIC TOPICAL ×2 (06:10→17:24)
[2021-10-13] MEDS: Senna/Docusate Sodium 1 Tablet PO ×2 (06:12→17:24)
--- NOTE | 2021-10-13 06:14 | NURSING ---
Patient complained of left sided chest pressure. States she told them yesterday. Patient denied any needs when this nurse was in room earlier this shift. Patient refused to have Oxygen put on at HS. Vitals obtained as noted. Patient refused Oxygen last night at HS. Oxygen showing 76% on RA. Patients color is normal and breathing is normal. Patient denies any radiating pain at first, then said its going down her leg. RN called to room. Inspiratory wheezes heard. X1 Nitro given with positive effects. Patient states pain is at a [address] Carvajal.
--- NOTE | 2021-10-13 06:22 | EKG12_ITS ---
Test Reason : CP Blood Pressure : / mmHG Vent. Rate : 095 BPM Atrial Rate : 095 BPM P-R Int : 176 ms QRS Dur : 092 ms QT Int : 346 ms P-R-T Axes : 068 103 040 degrees QTc Int : 434 ms Normal sinus rhythm Normal ECG When compared with ECG of 06-OCT-2021 15:32, Questionable change in QRS duration Criteria for Septal infarct are no longer Present Confirmed by ALEKSANDAR PRYOR, BRETT ([id number]), scientific publications editor ROSANA NIETO ([id number]) on 10/16/2021 2:07:12 PM Referred By: LORENA Confirmed By:BRETT HUERTAS MD
--- NOTE | 2021-10-13 06:23 | RAD_ITS ---
HISTORY: wheezes, low 02. TECHNIQUE: XR Chest 2 Views. EXAM TIME: 2021-10-13 07:33. # of images incl. paperwork: 3. COMPARISON:09/11/2021. FINDINGS: LINES/DEVICES: None. CARDIOMEDIASTINAL BORDERS: Stable enlargement. LUNGS: Increased perihilar and bibasilar opacities. PLEURA: No pleural effusion or pneumothorax. RAD/Chest PA and Lateral IMPRESSION: Increased perihilar and bibasilar opacities in the lungs. at 0813 Reported and signed by: Carlee Mercado MD Electronically Signed: Carlee Mercado MD at 8:12 EST Tel , Service support ,
--- NOTE | 2021-10-13 06:25 | NURSING ---
Notified Dr. Carvajal that patient had complained of chest pressure, relieved after one dose of nitro. Notified him that 02 sats low on RA, has inspiratory wheezes. New order for EKG and chest cxray.
[2021-10-13] MEDS: Potassium Chloride Oral Tablet 20 MEQ PO ×2 (09:07→17:23)
[2021-10-13] MEDS: Gabapentin 100 MG Capsule PO ×3 (09:07→17:24)
[2021-10-13] MEDS: Aspirin 81 MG TAB.CHEW PO (09:07)
[2021-10-13] MEDS: Furosemide 40 MG Tablet PO ×2 (09:07→17:23)
[2021-10-13] MEDS: Calcium Carb/Vitamin D 1 TABLET Tablet PO (09:10)
[2021-10-14] MEDS: Furosemide 40 MG Tablet PO ×2 (06:06→17:50)
[2021-10-14] MEDS: Menthol/Lanolin/Calamine/Znox 113 GM Tube 1 APPLIC TOPICAL (06:06)
[2021-10-14] MEDS: Nystatin Powder 15gm Bottle 1 APPLIC TOPICAL (06:07)
[2021-10-14] MEDS: Senna/Docusate Sodium 1 Tablet PO ×2 (06:07→17:50)
[2021-10-14] MEDS: Acetaminophen 500 MG Tablet 1000 MG PO ×2 (06:15→12:43)
[2021-10-14 07:05] VITALS: O2SAT 96
[2021-10-14] MEDS: Gabapentin 100 MG Capsule PO ×3 (08:43→17:50)
[2021-10-14] MEDS: Calcium Carb/Vitamin D 1 TABLET Tablet PO (08:43)
[2021-10-14] MEDS: Potassium Chloride Oral Tablet 20 MEQ PO ×2 (08:43→17:50)
[2021-10-14] MEDS: Aspirin 81 MG TAB.CHEW PO (08:43)
[2021-10-14 15:22] VITALS: BP 121/62; PULSE 96; RESP 18; TEMP 36.4; O2SAT 95
[2021-10-15] MEDS: Senna/Docusate Sodium 1 Tablet PO ×2 (06:53→17:08)
[2021-10-15] MEDS: Furosemide 40 MG Tablet PO ×2 (06:53→17:08)
[2021-10-15] MEDS: Acetaminophen 500 MG Tablet 1000 MG PO ×2 (07:08→13:09)
[2021-10-15 07:11] VITALS: O2SAT 94
[2021-10-15] MEDS: Menthol/Lanolin/Calamine/Znox 113 GM Tube 1 APPLIC TOPICAL ×2 (07:12→17:10)
[2021-10-15] MEDS: Potassium Chloride Oral Tablet 20 MEQ PO ×2 (08:53→17:07)
[2021-10-15] MEDS: Gabapentin 100 MG Capsule PO ×3 (08:53→17:08)
[2021-10-15] MEDS: Aspirin 81 MG TAB.CHEW PO (08:53)
[2021-10-15] MEDS: Calcium Carb/Vitamin D 1 TABLET Tablet PO (08:54)
[2021-10-15 11:10] VITALS: PULSE 82; RESP 18; O2SAT 93
--- NOTE | 2021-10-15 11:25 | NURSING ---
THIS NURSE INTO SEE PT. PT STATED SHE WAS A LITTLE SOB. OXYGEN 77% ON ROOM AIR. PLACED O2 ON PT AT 2L. OXYGEN NOW 93%.
--- NOTE | 2021-10-15 15:26 | NURSING ---
PT AND WERE UPSET AND ASKED THIS NURSE WHY PT WAS NOT ON REGISTER CAUSE VISITORS COME IN TO MAIN ENTRANCE AND ARE TOLD PT IS NOT HERE. THIS NURSE CHECKED WITH REGISTRATION AND WAS TOLD IT WAS MARKED DNP. THIS NURSE STATED TO PT AND WHAT HAPPENED AND IF THEY WOULD LIKE IT CHANGED I WOULD CALL REGISTRATION BACK. PT AND STATED YES THEY WOULD. THIS NURSE CALLED REGISTRATION BACK AND TOLD THEM THAT THE AND CONSENTED TO HAVE IT CHANGED. RN AWARE
[2021-10-15 15:41] VITALS: BP 107/59; PULSE 90; RESP 16; TEMP 36.6; O2SAT 96
--- NOTE | 2021-10-16 06:45 | NURSING ---
Pt and spouse verbalize concerns re: BLE edema. +1 non-pitting edema noted to BLE. Pedal edema +2, non-pitting bilateral. Discussed option of LILIYA wraps for compression and pt reports LILIYA wraps were applied twice since admission to unit. Also discussed issues w/ hypoxia reported from dayshift HYGIENE TEACHER yesterday. Suggested pt wear O2 at all times d/t hx of CHF, post-COVID, and participation in therapy. May need testing prior to dc home for O2.
[2021-10-16 06:46] VITALS: BP 120/59; PULSE 87; RESP 20; TEMP 35.7; O2SAT 97
[2021-10-16] MEDS: Furosemide 40 MG Tablet PO ×2 (06:48→18:12)
[2021-10-16] MEDS: Senna/Docusate Sodium 1 Tablet PO ×2 (06:49→18:05)
[2021-10-16] MEDS: Menthol/Lanolin/Calamine/Znox 113 GM Tube 1 APPLIC TOPICAL ×2 (06:50→18:14)
[2021-10-16 07:51] VITALS: O2SAT 100
[2021-10-16] MEDS: Gabapentin 100 MG Capsule PO ×3 (08:49→18:04)
[2021-10-16] MEDS: Aspirin 81 MG TAB.CHEW PO (08:49)
[2021-10-16] MEDS: Calcium Carb/Vitamin D 1 TABLET Tablet PO (08:49)
[2021-10-16] MEDS: Potassium Chloride Oral Tablet 20 MEQ PO ×2 (08:49→18:04)
[2021-10-16] MEDS: Acetaminophen 500 MG Tablet 1000 MG PO (10:25)
[2021-10-16 11:00] VITALS: BP 122/47; PULSE 76; RESP 18; TEMP 36.3; O2SAT 97
--- NOTE | 2021-10-16 15:22 | NURSING ---
Resident and daughter, Saúl notifed of staff member testing positive for COVID.
[2021-10-16] MEDS: Nystatin Powder 15gm Bottle 1 APPLIC TOPICAL (18:14)
[2021-10-16 18:15] VITALS: BP 143/75; PULSE 88
[2021-10-17] VITALS (7 sets, daily range): BP systolic 95–126; BP diastolic 48–70; PULSE 66–95; RESP 16–18; TEMP 36.4; O2SAT 77–97
[2021-10-17] MEDS: Menthol/Lanolin/Calamine/Znox 113 GM Tube 1 APPLIC TOPICAL ×2 (06:10→17:46)
[2021-10-17] MEDS: Furosemide 40 MG Tablet PO ×2 (06:10→17:45)
[2021-10-17] MEDS: Nystatin Powder 15gm Bottle 1 APPLIC TOPICAL ×2 (06:10→17:46)
[2021-10-17] MEDS: Senna/Docusate Sodium 1 Tablet PO ×2 (06:11→17:45)
--- NOTE | 2021-10-17 07:24 | MDS.RN ---
Information for the mds was obtained from review of the clinical record, interview of resident, staff, and direct observation of resident's care.
[2021-10-17] MEDS: Aspirin 81 MG TAB.CHEW PO (08:40)
[2021-10-17] MEDS: Gabapentin 100 MG Capsule PO ×3 (08:40→17:44)
[2021-10-17] MEDS: Calcium Carb/Vitamin D 1 TABLET Tablet PO (08:40)
[2021-10-17] MEDS: Potassium Chloride Oral Tablet 20 MEQ PO ×2 (08:40→17:44)
[2021-10-17] MEDS: Bisacodyl 5 MG Tablet 10 MG PO (08:43)
[2021-10-17] MEDS: Acetaminophen 500 MG Tablet 1000 MG PO ×2 (09:58→17:43)
--- NOTE | 2021-10-17 11:44 | NURSING ---
Spoke w/ Dr. Carvajal via phone and updated that this nurse informed right hip pain is hindering performance in therapy. New order received for 2-view right hip x-ray.
--- NOTE | 2021-10-17 14:45 | RAD_ITS ---
EXAM: XR RIGHT HIP WITH PELVIS WHEN PERFORMED, 2 OR 3 VIEWS CLINICAL INDICATION: Right hip pain TECHNIQUE: Two or three views of the right hip with pelvis when performed. This report was created using [employer] report generation technology. COMPARISON: 09/21/2021 examination. FINDINGS: BONES/JOINTS: Diffuse osteopenia. No convincing evidence for acute displaced fracture or malalignment. No unusual lytic or sclerotic lesions of bone. Degenerative changes of the spine. Sacroiliac joint is unremarkable. No widening of the pubic symphysis. SOFT TISSUES: Unremarkable. No soft tissue swelling or gas. VASCULATURE: Numerous phleboliths in the pelvis. GASTROINTESTINAL TRACT: Bowel gas pattern is nonobstructive. RAD/HIP, UNI W/ Pelvis 2-3 Views IMPRESSION: No convincing evidence for acute displaced fracture or malalignment. Osteopenia limits assessment. Is still concerned, consider CT. Electronically Signed: Bobo Reilly MD at 4:34 EST Tel , Service support ,
--- NOTE | 2021-10-17 14:45 | NURSING ---
Taken to xray for hip xray.
[2021-10-17] MEDS: Nitroglycerin (INPATIENT USE) 0.4 MG TAB.SUBL SL (18:59)
--- NOTE | 2021-10-17 19:03 | NURSING ---
THIS NURSE CALLED TO ROOM, STATED WAS HAVING CHEST PAIN. RN CALLED TO RN. VITALS DONE, O2 WAS OFF. RA 77%. O2 PLACED BACK ON AT 2L,OXYGEN NOW 94%. NITRO GIVEN AND CALLED FOR EKG.
--- NOTE | 2021-10-17 19:08 | EKG12_ITS ---
Test Reason : CP Blood Pressure : / mmHG Vent. Rate : 096 BPM Atrial Rate : 096 BPM P-R Int : 188 ms QRS Dur : 086 ms QT Int : 346 ms P-R-T Axes : 060 095 035 degrees QTc Int : 437 ms Normal sinus rhythm Normal ECG When compared with ECG of 13-OCT-2021 06:29, No significant change was found Confirmed by ALEKSANDAR PRYOR, BRETT ([id number]), news assignment editor ROSANA NIETO ([id number]) on 10/24/2021 7:32:53 AM Referred By: Luzma Walker Confirmed By:BRETT HUERTAS MD
[2021-10-18] MEDS: Menthol/Lanolin/Calamine/Znox 113 GM Tube 1 APPLIC TOPICAL ×2 (06:19→17:22)
[2021-10-18] MEDS: Nystatin Powder 15gm Bottle 1 APPLIC TOPICAL ×2 (06:20→17:22)
[2021-10-18] MEDS: Furosemide 40 MG Tablet PO ×2 (06:20→17:19)
[2021-10-18] MEDS: Potassium Chloride Oral Tablet 20 MEQ PO ×2 (07:30→17:19)
[2021-10-18] MEDS: Aspirin 81 MG TAB.CHEW PO (07:30)
[2021-10-18] MEDS: Gabapentin 100 MG Capsule PO ×3 (07:30→17:19)
[2021-10-18] MEDS: Calcium Carb/Vitamin D 1 TABLET Tablet PO (07:30)
[2021-10-18 07:34] VITALS: O2SAT 95
[2021-10-18] MEDS: Acetaminophen 500 MG Tablet 1000 MG PO (07:38)
--- NOTE | 2021-10-18 10:53 | NURSING ---
Xray results given to Dr. Carvajal, N.O. CT of right hip without contrast, no precert required
[2021-10-18 11:00] VITALS: BP 140/66; PULSE 96; RESP 20; TEMP 35.8; O2SAT 99
[2021-10-18] MEDS: Senna/Docusate Sodium 1 Tablet PO (17:19)
[2021-10-18 19:57] VITALS: PULSE 88; RESP 18; O2SAT 100
[2021-10-19 05:53] LABS: Absolute Lymphocyte Count 1.06 X10^3/uL (0.83-4.51); Absolute Neutrophil Count 4.2 X10^3/uL (2.0-7.7); Basophil# 0.06 X10^3/uL; Eosinophil# 0.24 X10^3/uL; Eosinophils% 3.8 % (0-5); Hematocrit 29.9 % (37-47); Hemoglobin 9.3 g/dL (12.0-15.0); Lymphocyte # 1.06 X10^3/ul (0.83-4.51); Lymphocyte % 16.8 % (19-41); Mean Corp Hgb Conc 31.1 g/dL (32-36); Mean Corpuscular Hgb 30.9 pg (27.0-32.0); Mean Corpuscular Volume 99.3 fL (81-99); Mean Platelet Vol. 9.5 fl (6.2-12.0); Monocyte# 0.71 X10^3/uL; Monocyte% 11.3 % (0-10); NRBC Flagged by Analyzer 0 % (0-5); Neutrophil # 4.21 X10^3/uL (2.7-7.7); Neutrophil % 66.8 % (47-70); Platelet Count 337 K/mm3 (150-450); RBC Distribution Width CV 14.7 % (11.6-14.6); RBC Distribution Width SD 53.1 fl (35.1-43.9); Red Blood Count 3.01 M/mm3 (4.2-5.4); White Blood Count 6.3 K/mm3 (4.4-11.0)
[2021-10-19] MEDS: Furosemide 40 MG Tablet PO ×2 (06:39→17:49)
[2021-10-19 06:48] LABS: Anion Gap 6 (5-15); BUN 18 mg/dL (7-18); BUN/Creat Ratio 38.6 RATIO (10-20); Calcium,Total 8.8 mg/dL (8.5-10.1); Chloride 94 mmol/L (98-107); Creatinine, Serum 0.47 mg/dL (0.55-1.02); EST Glomerular Filtration Rate 137 mL/min (>60); Est Glom Filt Rate - Afr Amer 166 mL/min (>60); Estimated Creatinine Clearance 56.54 ml/min; Glucose 84 mg/dL (74-106); Potassium 3.8 mmol/L (3.5-5.1); Sodium Level 135 mmol/L (136-145)
[2021-10-19] MEDS: Calcium Carb/Vitamin D 1 TABLET Tablet PO (08:13)
[2021-10-19] MEDS: Aspirin 81 MG TAB.CHEW PO (08:13)
[2021-10-19] MEDS: Potassium Chloride Oral Tablet 20 MEQ PO ×2 (08:14→17:48)
[2021-10-19] MEDS: Gabapentin 100 MG Capsule PO ×3 (08:14→17:49)
[2021-10-19] MEDS: Nystatin Powder 15gm Bottle 1 APPLIC TOPICAL ×2 (10:27→17:46)
[2021-10-19] MEDS: Menthol/Lanolin/Calamine/Znox 113 GM Tube 1 APPLIC TOPICAL ×2 (10:28→17:46)
--- NOTE | 2021-10-19 11:23 | NURSING ---
THIS NURSE CALLED DR. SY OFFICE, GOT MACHINE AND LEFT MESSAGE FOR THEM TO CALL BACK TO SET UP CONSULT/APPOINTMENT FOR PT.
[2021-10-19 12:08] VITALS: BP 110/63; PULSE 82; RESP 16; TEMP 36.3; O2SAT 97
[2021-10-19] MEDS: Acetaminophen 500 MG Tablet 1000 MG PO (12:53)
--- NOTE | 2021-10-19 13:56 | NURSING ---
OFFICE CALLED BACK AND THIS NURSE ASKED/ REQUESTED IF HE COULD STOP BY AND SEE PT INSTEAD OF OFFICE VISIT. OFFICE SAID SHE WOULD LET HIM KNOW AND WILL CALL BACK TO LET US KNOW WHEN HE WOULD BE IN. RN AWARE AND PT AND UPDATED.
--- NOTE | 2021-10-19 14:16 | NURSING ---
CALLED BACK AND STATED HE WILL SEND HIS PA OVER AND WANTED A MRI STAT ON THE RIGHT HIP.
[2021-10-19 14:30] VITALS: PULSE 95; RESP 18; O2SAT 97
--- NOTE | 2021-10-19 14:53 | NURSING ---
PA WAS IN TO SEE PT. PA STATED SHE OR WILL GET BACK WITH US SOME TIME AFTER MRI DONE.
--- NOTE | 2021-10-19 15:41 | CONS.ORTHO ---
HPI Consult Data Date of Consult: 10/19/21 HPI Narrative HPI Narrative: ABRAN SAENZ, is a 81 F who was consulted on today due to having right hip pain and a questionable subcapital fracture seen on CT. She originally presented to [facility] ED on 10/02/21 due to having bilateral numbness and weakness that spread to her whole body worsening over the past month. She has a history of congenital arthrogryposis, so at baseline she has weakness. A workup was done in the ED and she was later admitted to [facility] on 10/02/21 for further investigation. She was then transferred to the TCU on 10/04/21 for debility and rehabilitation.The patient and her state that the right hip pain started 2 days ago. She complains of right hip pain with weight bearing and when she lays on her right hip. The pain is located posterolateral right hip. Denies any recent falls and denies falls within the last 3-6 months as well. She is currently non-ambulatory. When she does ambulate, her states that he always assists her by placing his hands under her armpits and supporting her. She always wears bilateral lower extremity braces when ambulating due to the history of arthrogryposis. Since being in the TCU she has had OT/PT. [facility] Medical History Acute congestive heart failure Arthrogryposis COVID-19 Diastolic CHF Hearing loss, left Hearing loss, right HLD (hyperlipidemia) HTN (hypertension) Hypoxia Kidney disease Morbid obesity with BMI of 40.0-44.9, adult Non-smoker Pneumonia S/p nephrectomy SBO (small bowel obstruction) Sepsis Shortness of breath Single kidney Wears hearing aid in both ears Home Medications aspirin 81 mg PO DAILY@0800 07/12/15 [History Last Taken 10/01/21] calcium carbonate-vitamin D3 1 tab PO DAILY 07/12/15 [History Last Taken 10/01/21] lisinopril 5 mg PO DAILY 07/12/15 [History Last Taken 10/01/21] L.acidoph, paracasei,B. lactis 1 ea PO DAILY 03/22/19 [History Last Taken 10/01/21] furosemide 40 mg PO BID 03/22/19 [History Last Taken 10/01/21] potassium chloride 20 meq PO BID 03/22/19 [History Last Taken 10/01/21] Allergy/AdvReac Type Severity Reaction Status Date / Time No Known Allergies Allergy Verified 10/02/21 11:04 Surgical History H/O section History of orthopedic surgery S/p nephrectomy Status post laparoscopy Social History household members: spouse Smoking Status: Never smoker alcohol intake: never substance use type: does not use ROS Musculoskeletal Musculoskeletal: Reports arthralgias, extremity pain and joint pain Vital Signs Vital Signs Vital Signs: 10/18/21 19:57 10/18/21 22:00 10/19/21 09:54 Temperature Temperature Source Pulse Rate 88 Pulse Rhythm Regular Pulse Strength Normal (2+) Normal (2+) Respiratory Rate 18 Respiratory Effort Normal Non-Labored Respiratory Depth Normal Respiratory Pattern Normal Blood Pressure Blood Pressure Mean Blood Pressure Source Blood Pressure Position Blood Pressure Location Pulse Ox 100 Oxygen Delivery Method Nasal Cannula Oxygen Flow Rate (L/min) 2 2 10/19/21 10:01 10/19/21 12:08 Temperature 97.3 F L Temperature Source Temporal Pulse Rate 82 Pulse Rhythm Pulse Strength Respiratory Rate 16 Respiratory Effort Respiratory Depth Respiratory Pattern Blood Pressure 110/63 Blood Pressure Mean 78 Blood Pressure Source Monitor Blood Pressure Position Semi-Fowlers Blood Pressure Location Left Arm Pulse Ox 97 Oxygen Delivery Method Room Air Oxygen Flow Rate (L/min) 2 Weight Weight: 173 lb 1.6 oz Body Mass Index (BMI) 37.4 Physical Exam Const alert, oriented x3 and no apparent distress General Appearance: cooperative and comfortable Extremity Extremity Narrative: Upon inspection right hip there is no evident ecchymosis, swelling or open wounds. No signs of infection. Does have patchy erythematous area with peeling in right lower extremity, which her states is normal. TTP of posterior lateral right hip. No pain with log roll. Soft compartments. Intact sensation to light touch throughout lower right extremity. Able to actively lift her leg off the bed and move it side to side without pains. Her knee and ankle AROM is limited due to her arthrogryposis at baseline. Palpable pedal pulses. Lab / Micro Data Result Diagrams: 10/19/21 05:35 10/19/21 05:35 Labs: Laboratory Results - last 24 hr 10/19/21 05:35: WBC 6.3, RBC 3.01 L, Hgb 9.3 L, Hct 29.9 L, MCV 99.3 H, MCH 30.9, MCHC 31.1 L, RDW Std Deviation 53.1 H, RDW Coeff of Sorin 14.7 H, Plt Count 337, MPV 9.5, Immature Gran % (Auto) 0.300, Neut % (Auto) 66.8, Lymph % (Auto) 16.8 L, Dixon % (Auto) 11.3 H, Eos % (Auto) 3.8, Baso % (Auto) 1.0, Absolute Neuts (auto) 4.2, Absolute Lymphs (auto) 1.06, Nucleated RBC % 0 10/19/21 05:35: Sodium 135 L, Potassium 3.8, Chloride 94 L, Carbon Dioxide 35.0 H, Anion Gap 6, BUN 18, Creatinine 0.47 L, Estim Creat Clear Calc 56.54, Est GFR (MDRD) Af Amer 166, Est GFR (MDRD) Non-Af 137, BUN/Creatinine Ratio 38.6 H, Glucose 84, Calcium 8.8 Assessment & Plan Assessment/Plan (1) Acute right hip pain: PLAN: The patient was seen and examined. Discussed with the patient and her that the next step is going to be to get an MRI of the right hip. Until the results of her MRI she should be non-weight bearing on her right lower extremity. An order was placed for this. After the MRI is reviewed further recommendations will be made. All questions answered. Patient is in agreement of the plan. Call the office with any questions or concerns.
--- NOTE | 2021-10-19 16:57 | NURSING ---
OFFICE CALLED AND STATED THAT PT IS TO BE NON WEIGHT BEARING TO RIGHT LEG UNTIL MRI IS RED AND HERE FROM HIM. RN AWARE
[2021-10-20] MEDS: Furosemide 40 MG Tablet PO ×2 (06:01→17:00)
[2021-10-20] MEDS: Menthol/Lanolin/Calamine/Znox 113 GM Tube 1 APPLIC TOPICAL ×2 (06:04→17:00)
[2021-10-20] MEDS: Nystatin Powder 15gm Bottle 1 APPLIC TOPICAL ×2 (06:05→17:01)
[2021-10-20 06:09] VITALS: BP 112/61; PULSE 83; RESP 16; TEMP 36.3; O2SAT 96
[2021-10-20] MEDS: Gabapentin 100 MG Capsule PO ×3 (07:49→17:00)
[2021-10-20] MEDS: Calcium Carb/Vitamin D 1 TABLET Tablet PO (07:49)
[2021-10-20] MEDS: Aspirin 81 MG TAB.CHEW PO (07:49)
[2021-10-20] MEDS: Potassium Chloride Oral Tablet 20 MEQ PO ×2 (07:49→17:00)
--- NOTE | 2021-10-20 08:36 | PCM.PN.ORT ---
Objective Data Objective Data Vital Signs: Vital Signs Temp Pulse Resp BP Pulse Ox 97.4 F L 83 16 112/61 96 10/20/21 06:09 10/20/21 06:09 10/20/21 06:09 10/20/21 06:09 10/20/21 06:09 Oxygen Flow Rate (L/min) 2 Oxygen Delivery Method Nasal Cannula Weight: 182 lb 3.2 oz Body Mass Index (BMI) 37.4 Intake & Output: Intake and Output for Last 24 Hours 10/18/21 10/19/21 10/20/21 23:59 23:59 23:59 Intake Total 840 / 840 480 / 480 Output Total 500 / 500 700 / 700 400 / 400 Balance 340 / 340 -220 / -220 -400 / -400 Lab / Micro Data Result Diagrams: 10/19/21 05:35 10/19/21 05:35 Assessment & Plan Assessment/Plan (1) Acute right hip pain: PLAN: Consult reviewed with physician assistant administrator agree with her assessment and plan. MRI reviewed this morning there is no acute fracture of the right hip. Degenerative changes noted, no orthopedic surgical intervention warranted may be weightbearing as tolerated with physical therapy and pain control, no follow-up needed.
[2021-10-20 13:07] VITALS: BP 112/61; PULSE 83; RESP 16; TEMP 36.3; O2SAT 96
[2021-10-20] MEDS: Acetaminophen 500 MG Tablet 1000 MG PO (19:44)
[2021-10-21] MEDS: Senna/Docusate Sodium 1 Tablet PO ×2 (05:36→17:44)
[2021-10-21] MEDS: Menthol/Lanolin/Calamine/Znox 113 GM Tube 1 APPLIC TOPICAL ×2 (05:36→17:46)
[2021-10-21] MEDS: Furosemide 40 MG Tablet PO ×2 (05:36→17:44)
[2021-10-21] MEDS: Nystatin Powder 15gm Bottle 1 APPLIC TOPICAL ×2 (05:37→17:47)
--- NOTE | 2021-10-21 07:22 | NURSING ---
MRI negative for acute fx per report, WBAT at this time
[2021-10-21] MEDS: Aspirin 81 MG TAB.CHEW PO (08:18)
[2021-10-21] MEDS: Gabapentin 100 MG Capsule PO ×3 (08:18→17:44)
[2021-10-21] MEDS: Calcium Carb/Vitamin D 1 TABLET Tablet PO (08:18)
[2021-10-21] MEDS: Potassium Chloride Oral Tablet 20 MEQ PO ×2 (08:18→17:44)
[2021-10-21 09:54] VITALS: O2SAT 91
[2021-10-21] MEDS: Acetaminophen 500 MG Tablet 1000 MG PO ×2 (12:13→21:34)
[2021-10-21 14:40] VITALS: BP 100/54; PULSE 90; RESP 22; TEMP 36.2; O2SAT 98
[2021-10-21] MEDS: Bisacodyl 5 MG Tablet 10 MG PO (17:50)
[2021-10-21 17:52] VITALS: BP 126/77; PULSE 81
[2021-10-21 22:20] VITALS: BP 111/74; PULSE 65; RESP 18; TEMP 37.1; O2SAT 100
[2021-10-21 22:41] VITALS: PULSE 80
[2021-10-22] MEDS: Menthol/Lanolin/Calamine/Znox 113 GM Tube 1 APPLIC TOPICAL ×2 (06:24→17:55)
[2021-10-22] MEDS: Nystatin Powder 15gm Bottle 1 APPLIC TOPICAL ×2 (06:25→17:56)
[2021-10-22] MEDS: Gabapentin 100 MG Capsule PO ×3 (06:27→17:55)
[2021-10-22 06:31] VITALS: BP 110/45; PULSE 59
[2021-10-22] MEDS: Calcium Carb/Vitamin D 1 TABLET Tablet PO (08:26)
[2021-10-22] MEDS: Aspirin 81 MG TAB.CHEW PO (08:26)
[2021-10-22] MEDS: Potassium Chloride Oral Tablet 20 MEQ PO ×2 (08:26→17:55)
[2021-10-22] MEDS: Acetaminophen 500 MG Tablet 1000 MG PO (11:20)
[2021-10-22 13:50] VITALS: BP 115/47; PULSE 81; RESP 18; TEMP 36.4; O2SAT 97
[2021-10-22 13:55] VITALS: O2SAT 93
[2021-10-22] MEDS: Furosemide 40 MG Tablet PO (17:55)
[2021-10-22] MEDS: Senna/Docusate Sodium 1 Tablet PO (17:55)
[2021-10-22 17:57] VITALS: BP 127/61; PULSE 88
[2021-10-23] MEDS: Menthol/Lanolin/Calamine/Znox 113 GM Tube 1 APPLIC TOPICAL ×2 (06:24→20:12)
[2021-10-23] MEDS: Nystatin Powder 15gm Bottle 1 APPLIC TOPICAL ×2 (06:25→17:26)
[2021-10-23] MEDS: Furosemide 40 MG Tablet PO ×2 (06:25→17:24)
[2021-10-23] MEDS: Senna/Docusate Sodium 1 Tablet PO ×2 (06:26→17:25)
[2021-10-23 07:06] VITALS: O2SAT 93
[2021-10-23] MEDS: Gabapentin 100 MG Capsule PO ×3 (08:39→17:24)
[2021-10-23] MEDS: Calcium Carb/Vitamin D 1 TABLET Tablet PO (08:39)
[2021-10-23] MEDS: Potassium Chloride Oral Tablet 20 MEQ PO ×2 (08:39→17:24)
[2021-10-23] MEDS: Aspirin 81 MG TAB.CHEW PO (08:39)
[2021-10-23 12:50] VITALS: PULSE 93; RESP 18; O2SAT 95
[2021-10-23 16:00] VITALS: BP 154/79; PULSE 78; RESP 16; TEMP 36.6; O2SAT 99
[2021-10-23] MEDS: Acetaminophen 500 MG Tablet 1000 MG PO (20:01)
[2021-10-24] MEDS: Furosemide 40 MG Tablet PO ×2 (06:09→17:10)
[2021-10-24] MEDS: Senna/Docusate Sodium 1 Tablet PO ×2 (06:09→17:10)
[2021-10-24] MEDS: Nystatin Powder 15gm Bottle 1 APPLIC TOPICAL ×2 (06:13→21:19)
[2021-10-24] MEDS: Menthol/Lanolin/Calamine/Znox 113 GM Tube 1 APPLIC TOPICAL ×2 (06:13→17:07)
[2021-10-24] MEDS: Aspirin 81 MG TAB.CHEW PO (08:44)
[2021-10-24] MEDS: Gabapentin 100 MG Capsule PO ×3 (08:44→17:10)
[2021-10-24] MEDS: Calcium Carb/Vitamin D 1 TABLET Tablet PO (08:44)
[2021-10-24] MEDS: Potassium Chloride Oral Tablet 20 MEQ PO ×2 (08:44→17:10)
[2021-10-24 10:06] VITALS: O2SAT 99
[2021-10-24 14:12] VITALS: BP 126/57; PULSE 88; RESP 16; TEMP 36.3; O2SAT 97
--- NOTE | 2021-10-24 16:48 | CASEMGMT ---
Social Work Met with pt, and dtr in room to discuss DC plans. Explained was instructed by Dr. Carvajal it is no longer safe to transfer pt by himself. She needs x2 assist. IDT is looking for DC 11/02. Inquired about home with it help desk technician or SNF for intermediate care. Discussed financial liability and Medicaid. Pt and state they would not be eligible for Medicaid. Provided list of nonskilled HHC agencies and SNF list with Medicare ratings. Pt's first choice if they choose a SNF is [facility]. Family to discuss options further and notify this worker of outcome. SW to continue to follow. Ani Cid, INDUSTRIAL ELECTRICIAN JOURNEYMAN FUNCTIONAL ARCHITECT
[2021-10-24 21:18] VITALS: PULSE 85; RESP 16; O2SAT 97
[2021-10-24] MEDS: Acetaminophen 500 MG Tablet 1000 MG PO (21:18)
[2021-10-25] MEDS: Furosemide 40 MG Tablet PO ×2 (05:51→17:01)
[2021-10-25] MEDS: Senna/Docusate Sodium 1 Tablet PO ×2 (05:51→17:02)
[2021-10-25] MEDS: Menthol/Lanolin/Calamine/Znox 113 GM Tube 1 APPLIC TOPICAL ×2 (06:01→17:05)
[2021-10-25] MEDS: Nystatin Powder 15gm Bottle 1 APPLIC TOPICAL ×2 (06:01→17:05)
[2021-10-25 06:02] VITALS: BP 122/64; PULSE 83; RESP 16; TEMP 36.3; O2SAT 96
[2021-10-25] MEDS: Potassium Chloride Oral Tablet 20 MEQ PO ×2 (07:40→17:01)
[2021-10-25] MEDS: Aspirin 81 MG TAB.CHEW PO (07:40)
[2021-10-25] MEDS: Gabapentin 100 MG Capsule PO ×3 (07:40→17:02)
[2021-10-25] MEDS: Calcium Carb/Vitamin D 1 TABLET Tablet PO (07:40)
[2021-10-25] MEDS: Acetaminophen 500 MG Tablet 1000 MG PO (11:51)
[2021-10-25 17:06] VITALS: BP 138/66; PULSE 90
--- NOTE | 2021-10-25 18:28 | CASEMGMT ---
Addendum entered by Ani Cid 10/26/21 12:18: [facility] unable to accept pt. Referred to [facility]. Original Note: Social Work Dtr present with and pt in room - requesting to speak with this worker. Family would like to take pt home and hire additional assistance. Pt requesting full electric hospital bed and O2. Pt uses O2 at night and when in bed. Pt required HOB be elevated 30 degrees, trial of wedges and pillows were unsuccessful. Nursing aware to complete necessary O2 testing. Pt requesting to get DME through [facility] as she has used them in the past. Referral made. Pt requesting to use [facility]. Referral made for PT/OT/SN/CORONEL/SW. SW in place to assist if DC home is not successful. Notified [facility] of DC. Pt will need cot transport scheduled for DC. Scheduled through Physician for 10 am. Plan: DC home with , nonskilled HHC, [facility] PT/OT/SN/CORONEL/SW, O2 and hospital bed, Palliative Ani Cid, SUE TAPE FASTENER MACHINE OPERATOR
[2021-10-25 21:35] VITALS: PULSE 95; RESP 18; O2SAT 98
[2021-10-25 22:48] VITALS: PULSE 76; O2SAT 91
[2021-10-26] MEDS: Furosemide 40 MG Tablet PO ×2 (06:02→18:27)
[2021-10-26] MEDS: Senna/Docusate Sodium 1 Tablet PO ×2 (06:02→18:28)
[2021-10-26 06:35] LABS: Anion Gap 2 (5-15); BUN 17 mg/dL (7-18); BUN/Creat Ratio 35.6 RATIO (10-20); Calcium,Total 8.8 mg/dL (8.5-10.1); Chloride 94 mmol/L (98-107); Creatinine, Serum 0.48 mg/dL (0.55-1.02); EST Glomerular Filtration Rate 134 mL/min (>60); Est Glom Filt Rate - Afr Amer 162 mL/min (>60); Glucose 89 mg/dL (74-106); Potassium 5.3 mmol/L (3.5-5.1); Sodium Level 136 mmol/L (136-145)
[2021-10-26 07:11] LABS: Absolute Lymphocyte Count 1.31 X10^3/uL (0.83-4.51); Absolute Neutrophil Count 5.4 X10^3/uL (2.0-7.7); Basophil# 0.03 X10^3/uL; Basophil% 0.4 % (0-1); Eosinophil# 0.31 X10^3/uL; Eosinophils% 3.9 % (0-5); Hematocrit 30.4 % (37-47); Hemoglobin 9.2 g/dL (12.0-15.0); Lymphocyte # 1.31 X10^3/ul (0.83-4.51); Lymphocyte % 16.5 % (19-41); Mean Corp Hgb Conc 30.3 g/dL (32-36); Mean Corpuscular Hgb 31.5 pg (27.0-32.0); Mean Corpuscular Volume 104.1 fL (81-99); Mean Platelet Vol. 9.5 fl (6.2-12.0); Monocyte# 0.84 X10^3/uL; Monocyte% 10.6 % (0-10); NRBC Flagged by Analyzer 0 % (0-5); Neutrophil # 5.42 X10^3/uL (2.7-7.7); Neutrophil % 68.3 % (47-70); Platelet Count 304 K/mm3 (150-450); RBC Distribution Width CV 14.7 % (11.6-14.6); RBC Distribution Width SD 56.1 fl (35.1-43.9); Red Blood Count 2.92 M/mm3 (4.2-5.4); White Blood Count 7.9 K/mm3 (4.4-11.0)
[2021-10-26] MEDS: Menthol/Lanolin/Calamine/Znox 113 GM Tube 1 APPLIC TOPICAL ×2 (09:13→20:51)
[2021-10-26] MEDS: Nystatin Powder 15gm Bottle 1 APPLIC TOPICAL ×2 (09:15→20:51)
[2021-10-26] MEDS: Aspirin 81 MG TAB.CHEW PO (09:16)
[2021-10-26] MEDS: Gabapentin 100 MG Capsule PO ×3 (09:16→18:27)
[2021-10-26] MEDS: Calcium Carb/Vitamin D 1 TABLET Tablet PO (09:16)
[2021-10-26] MEDS: Sodium Polystyrene Sulfonate 15 GM/60 ML UDC PO (09:23)
[2021-10-26 09:45] VITALS: PULSE 94; RESP 18; O2SAT 98
--- NOTE | 2021-10-26 14:38 | NURSING ---
KAYEXALATE GIVEN PER ORDER WITH POSITIVE RESULTS.
[2021-10-26 15:36] VITALS: BP 127/58; PULSE 88; RESP 18; TEMP 36.2; O2SAT 98
--- NOTE | 2021-10-26 21:12 | DS.PCM_ITS ---
Providers Date of Admission: 10/04/21 Primary Care Physician: Dr. Momo Carvajal MD Consultations 10/18/21 17:14 Consult: Orthopedics Routine Consulting Provider: Javier Mccabe Reason for Consult: Right hip fracture on CT right hip. EMERGENT Consult: Yes MD Notified: Yes Date Notified: 10/18/21 Time Notified: 17:15 Method of Notification: Verbal Reason For Visit: WEAKNESS/NUMBNESS Diagnosis Discharge Diagnosis (1) Acute right hip pain: Status: Acute Code(s): M25.551 - Pain in right hip Medications at Discharge Home Medications aspirin 81 mg PO DAILY@0800 07/12/15 calcium carbonate-vitamin D3 1 tab PO DAILY 07/12/15 L.acidoph, paracasei,B. lactis 1 ea PO DAILY 03/22/19 furosemide 40 mg PO BID 03/22/19 Mineral Oil/Petrolatum,White [Eucerin] 1 applic TOPICAL BID #0 10/26/21 acetaminophen 1,000 mg PO Q6H PRN PRN #0 tab 10/26/21 gabapentin 100 mg PO TIDCM 30 Days #90 cap 10/26/21 menthol-zinc oxide [Calmoseptine] 1 applic TOPICAL BID #0 g 10/26/21 Hospital Course Operations None Procedures None Summary of Care Provided Minutes Spent on Discharge: 35 Hospital Course: 81 year old female with below past medical history significant for recent covid-19, arthrogryposis, hospitalized for weakness, numbness of legs, secondary to severe cervical spinal stenosis, severe lumbar spinal jann nosis, not surgical candidate, unable to rule out Guillain [place] due to patient declining lumbar puncture, admitted to TCU with debility, here for rehabilitation, strengthening, prior to discharge home with . On TCU, right hip fracture ruled out by MRI. Discharge home with , nonskilled C, [facility] PT/OT/SN/CORONEL/SW, O2 and hospital bed, Palliative. Physical Exam Const alert and oriented x3 General Appearance: cooperative HEENT normocephalic Eyes PERRL and EOMs intact bilaterally Neck supple, no JVD and no carotid bruits Resp normal respiratory effort, normal air movement and clear to auscultation bilaterally Cardio regular rate and regular rhythm GI normal to inspection, nondistended, normoactive bowel sounds, non-tender and non-distended Extremity normal capillary refill General Extremity: Negative for edema Skin no rashes or lesions noted General Skin Exam: no breakdown Psych affect normal Appearance: appropriate Weight / BMI Weight Weight: 81.647 kg Body Mass Index (BMI) 37.4 ABG / Lab / Microbiology Data Result Diagrams: 10/26/21 07:00 10/26/21 05:48 Laboratory: Laboratory Results - last 24 hr 10/26/21 05:48: Sodium 136, Potassium 5.3 H, Chloride 94 L, Carbon Dioxide 40.0 H, Anion Gap 2 L, BUN 17, Creatinine 0.48 L, Estim Creat Clear Calc 58.80, Est GFR (MDRD) Af Amer 162, Est GFR (MDRD) Non-Af 134, BUN/Creatinine Ratio 35.6 H, Glucose 89, Calcium 8.8 10/26/21 07:00: WBC 7.9, RBC 2.92 L, Hgb 9.2 L, Hct 30.4 L, MCV 104.1 H, MCH 31.5, MCHC 30.3 L, RDW Std Deviation 56.1 H, RDW Coeff of Sorin 14.7 H, Plt Count 304, MPV 9.5, Immature Gran % (Auto) 0.300, Neut % (Auto) 68.3, Lymph % (Auto) 16.5 L, Alexander % (Auto) 10.6 H, Eos % (Auto) 3.9, Baso % (Auto) 0.4, Absolute Neuts (auto) 5.4, Absolute Lymphs (auto) 1.31, Nucleated RBC % 0 D/C Instructions Discharge Diet: No restrictions Discharge Activity: Return to Normal Activity, May Shower and Use Walker Weight Bearing Status: Weight bearing as tolerated Call your doctor if you observe: Fever of 101 or Higher, Inability to urinate, Inability to have a bowel movement, Shortness of breath, Dizziness, Fainting spells, Chest pain and Uncontrolled pain Additional Instructions: Discharge home with , nonskilled HHC, [facility] PT/OT/SN/CORONEL/SW, O2 and hospital bed, Palliative. Please Follow Up With: Momo Carvajal Chi, MD When: 1 week. Meaningful Use Info Meaningful Use Diagnoses (Choose all that apply): None applicable Discharge Plan Admission Admit Date/Time: 10/04/21 17:01 Primary Reason for Your Visit: Debility. Attending Provider: Momo Carvajal Chi Primary Care Provider: Momo Carvajal Chi Consulting Providers: Javier Mccabe Instructions Additional Instructions / Restrictions: Discharge home with , nonskilled HHC, [facility] PT/OT/SN/CORONEL/SW, O2 and hospital bed, Palliative. Discharge Orders/Prescriptions Prescriptions: New acetaminophen 500 mg Tablet 1,000 mg PO Q6H PRN PRN (Reason: Pain Score 1-10) Qty: 0 RF: 0 gabapentin 100 mg Capsule 100 mg PO TIDCM 30 Days Qty: 90 RF: 0 menthol-zinc oxide [Calmoseptine] 0.44-20.6 % Ointment 1 applic topical BID Qty: 0 RF: 0 Mineral Oil/Petrolatum,White [Eucerin] 1 applic topical BID Qty: 0 RF: 0 Continued L.acidoph, paracasei,B. lactis 1 EACH capsule 1 ea PO DAILY RF: 0 furosemide 40 MG tablet 40 mg PO BID RF: 0 aspirin 81 MG tablet,chewable 81 mg PO DAILY@0800 RF: 0 calcium carbonate-vitamin D3 1 TAB tablet 1 tab PO DAILY RF: 0 Discontinued potassium chloride 10 MEQ tablet extended release 20 meq PO BID RF: 0 lisinopril 5 MG tablet 5 mg PO DAILY RF: 0 Referrals / Follow Up: Momo Carvajal Chi, MD [Primary Care Provider] - (within one week after discharge) Gianni Coffman MD [NON-STAFF] - 11/27/21 2:20 pm ([facility] [address], [address] [place] [address] ) Disposition Disposition (needs filled in before D/C Order can be placed): Home Health Service
[2021-10-27] VITALS (9 sets, daily range): BP systolic 109–135; BP diastolic 44–75; PULSE 86–93; RESP 16–26; TEMP 36.2–36.5; O2SAT 90–93
[2021-10-27] MEDS: Senna/Docusate Sodium 1 Tablet PO ×2 (05:04→17:19)
[2021-10-27] MEDS: Furosemide 40 MG Tablet PO ×3 (05:04→22:41)
[2021-10-27] MEDS: Menthol/Lanolin/Calamine/Znox 113 GM Tube 1 APPLIC TOPICAL ×2 (05:06→17:17)
[2021-10-27] MEDS: Nystatin Powder 15gm Bottle 1 APPLIC TOPICAL ×2 (05:06→17:19)
[2021-10-27 06:33] LABS: Anion Gap 5 (5-15); BUN 14 mg/dL (7-18); BUN/Creat Ratio 38.1 RATIO (10-20); Calcium,Total 8.5 mg/dL (8.5-10.1); Chloride 93 mmol/L (98-107); Creatinine, Serum 0.37 mg/dL (0.55-1.02); EST Glomerular Filtration Rate 181 mL/min (>60); Est Glom Filt Rate - Afr Amer 219 mL/min (>60); Glucose 98 mg/dL (74-106); Potassium 3.1 mmol/L (3.5-5.1); Sodium Level 138 mmol/L (136-145)
[2021-10-27] MEDS: Gabapentin 100 MG Capsule PO ×3 (08:16→17:18)
[2021-10-27] MEDS: Aspirin 81 MG TAB.CHEW PO (08:16)
[2021-10-27] MEDS: Calcium Carb/Vitamin D 1 TABLET Tablet PO (08:16)
[2021-10-27] MEDS: Potassium Chloride Oral Tablet 20 MEQ PO ×2 (08:20→17:18)
[2021-10-27] MEDS: Nitroglycerin (INPATIENT USE) 0.4 MG TAB.SUBL SL (09:36)
[2021-10-27] MEDS: Acetaminophen 500 MG Tablet 1000 MG PO ×2 (09:39→17:24)
--- NOTE | 2021-10-27 09:50 | NURSING ---
Addendum entered by Edel Chavez 10/27/21 12:25: Mylanta was effective at relieving sx, pt denies chest pain/discomfort at this time Addendum entered by Edel Chavez 10/27/21 10:50: EKG sent to Dr. Carvajal, pt still complaining of chest discomfort/pressure, N.O. 15ml mylanta x1 dose, if still has discomfort and BP in WNL give one more dose of nitro. N.o. doppler to left arm for increasing edema, charge nurse, pt and updated on all new orders Addendum entered by Edel Chavez 10/27/21 10:10: Heart Rhythm sounds irregular at this time, noted that her potassium is 3.1 and had just restarted on KDUR this morning, pt says pain has relieved some but still present, Dr. Carvajal called and updated on sx and interventions used, N.O. STAT EKG Original Note: This nurse was called to room d/t pt Oxygen dropping, pt's O2 was 90% on 3 liters for this nurse. Pt also c/o chest pain/discomfort rated at a 5/10, x1 nitro given, BP checked prior to administration, and reassessed 5 and 10 mins after, tylenol given for pain in chest and for hip pain. Left arm +2 edema but denies pain no redness, but has increased since this nurse has last seen it, and also concerned.
[2021-10-27] MEDS: Mag Hydrox/Al Hydrox/Simeth 30 ML UDC 15 ML PO (11:03)
--- NOTE | 2021-10-27 18:14 | NURSING ---
This nurse was spooning medications one at a time to pt. Pt was sitting up in bed and during medication administration began coughing. Coughing stopped and no air exchange noted, pt became cyanotic and when asked if she could breathe pt shook her head no. This nurse immediately hit call light and sat pt up as straight as possible leaning her forward in the bed and gave 5 back slaps. Pt then began coughing again and breathing resumed. SPO2 was checked and pt was 80% on 3L, pt's O2 was turned up to 5L and she eventually recovered stating between 90-93%. Charge nurse was updated and immediately came to bedside. Crackles noted in José Antonio upper lobes and wheezes throughout lungs, Lower lobes diminshed. 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 This nurse explained what had happened to . With close at bedside this nurse immediately notified Dr. Carvajal and new orders for STAT CXR, and repeat CXR tomorrow, Duoneb 3ml Q6H prn and albuterol 2.5mg Q2H prn for SOB/Wheezes.
--- NOTE | 2021-10-27 18:27 | RAD_ITS ---
INDICATION: SOB EXAMINATION/TECHNIQUE: X-RAY - XR Chest 2 Views COMPARISON: 10/13/2021. FINDINGS: Diffuse bilateral interstitial and airspace opacities. The heart is moderately enlarged. Tortuous and calcified thoracic aorta. Questionable trace bilateral pleural effusions. No pneumothorax. No acute osseous abnormalities. RAD/Chest PA and Lateral IMPRESSION: Diffuse bilateral interstitial and airspace opacities may represent infection and/or edema. Moderate cardiomegaly with questionable trace bilateral pleural effusions. Electronically Signed: Elias De La Rosa MD at 19:42 EST Tel , Service support ,
[2021-10-27] MEDS: Ipratropium/Albuterol Sulfate 3 ML AMPUL.NEB INHALATION (18:55)
--- NOTE | 2021-10-27 20:11 | NURSING ---
Addendum entered by Lu Washington 10/27/21 22:02: This RN unable to place IV on 2 attempts. Nurse supervisor rolling room also unable to get IV access on multiple attempts. Updated Dr. Carvajal, order to give oral doses of levaquin and lasix tonight and consult PICC team for line placement tomorrow. Original Note: Updated Dr. Carvajal that patient lethargic this evening, will wake up and answer simple questions then falls right back to sleep. On 4L 02 to keep sats 91%. Reviewed xray results with Dr. Carvajal, order to change lasix to 40mg IV BID, and start patient on levaquin 750mg q24 IV.
[2021-10-27] MEDS: levoFLOXacin 750 MG Tablet PO (22:40)
--- NOTE | 2021-10-27 23:06 | NURSING ---
Addendum entered by Sandy Acevedo 10/28/21 10:15: Ledy with new patient escort, provided ETA 12:30-13:30. Staff notified. Original Note: Order entered for PICC placement. Called patient access representative and spoke with Tres, he said they would try to be out first thing in the morning.
[2021-10-28] VITALS (10 sets, daily range): BP systolic 132–149; BP diastolic 63–68; PULSE 95–102; RESP 16–26; TEMP 36.3–36.9; O2SAT 5–97
[2021-10-28] MEDS: Acetaminophen 500 MG Tablet 1000 MG PO (02:02)
[2021-10-28] MEDS: Menthol/Lanolin/Calamine/Znox 113 GM Tube 1 APPLIC TOPICAL (05:43)
[2021-10-28] MEDS: Nystatin Powder 15gm Bottle 1 APPLIC TOPICAL (05:44)
[2021-10-28] MEDS: Senna/Docusate Sodium 1 Tablet PO (05:44)
--- NOTE | 2021-10-28 06:30 | RAD_ITS ---
STUDY: X-RAY CHEST REASON FOR EXAM: Female, 81 years old. SOB TECHNIQUE: PA and lateral views of the chest. COMPARISON: 10/27/2021 FINDINGS: No change in alveolar opacity in both lungs consistent with bilateral pneumonia, pulmonary edema, or ARDS. There is no demonstrated pleural abnormality. There is moderate cardiac enlargement. Normal mediastinum and fouzia. Normal visualized pulmonary arteries. Normal visualized aortic arch and descending thoracic aorta. Normal visualized thoracic spine. Normal visualized ribs, clavicles, and shoulders. There is no demonstrated abnormality of the visualized soft tissue structures of the upper abdomen. RAD/Chest PA and Lateral IMPRESSION: No change from 10/27/2021. Electronically Signed: Ryan Ying MD at 7:18 EST Tel , Service support ,
[2021-10-28 08:53] LABS: Anion Gap 10 (5-15); BUN 17 mg/dL (7-18); BUN/Creat Ratio 40.6 RATIO (10-20); Calcium,Total 9.1 mg/dL (8.5-10.1); Chloride 88 mmol/L (98-107); Creatinine, Serum 0.42 mg/dL (0.55-1.02); EST Glomerular Filtration Rate 155 mL/min (>60); Est Glom Filt Rate - Afr Amer 188 mL/min (>60); Glucose 98 mg/dL (74-106); Potassium 3.7 mmol/L (3.5-5.1); Sodium Level 136 mmol/L (136-145)
[2021-10-28] MEDS: Gabapentin 100 MG Capsule PO ×2 (09:40→13:57)
[2021-10-28] MEDS: Calcium Carb/Vitamin D 1 TABLET Tablet PO (09:40)
[2021-10-28] MEDS: Potassium Chloride Oral Tablet 20 MEQ PO (09:40)
[2021-10-28] MEDS: Aspirin 81 MG TAB.CHEW PO (09:41)
[2021-10-28] MEDS: Albuterol 2.5 MG/3 ML VIAL.NEB. INHALATION (10:13)
[2021-10-28] MEDS: Furosemide 40 MG/4 ML Vial IV (14:07)
[2021-10-28] MEDS: levoFLOXacin IV 750 MG/150 ML BAG 100 MG IV (14:20)
[2021-10-28] MEDS: Ipratropium/Albuterol Sulfate 3 ML AMPUL.NEB INHALATION ×2 (16:05→21:20)
--- NOTE | 2021-10-28 17:06 | NURSING ---
1200 Access nurse here for Picc line, Dr Carvajal ok'd the picc (requested by access nurse) d/t pt has having hx nephrectomy in 1995 1630 pt c\o of not able to breath on and off throughout the day, spo2 increased to 5L sats 84-92%, prn breathing treatments given not effective, started to c\o pressure on chest, pt became hot and sweaty, Temp 98.5, HR 90-102, Hiflow @ 8L not effective, NRB @ 10L spo2 97%, Dr. Nunez recommends sending to ER or home with Palliative care since d/c date was next week and pt was planning to go home with Palliative. pt chose ER for further testing. Visitor in room called to update pt being transferred to ER
--- NOTE | 2021-10-28 21:42 | NURSING ---
Addendum entered by Monalisa Stoddard 10/29/21 00:20: R' CURRENTLY RESTING WITH HOB ELEVATED. O2 IN PLACE. PURPLE DNR BRACELET REMOVED PER FAMILY REQUEST. CALL LIGHT WITHIN REACH. DENIES NEEDS AT THIS TIME. Addendum entered by Monalisa Stoddard 10/28/21 23:49: R' DAUGHTER ARRIVED TO UNIT. REQUESTING UPDATE. UPDATED HER OF R' GOING TO ER AND COMING BACK TO TCU, NEW ORDER TO INCREASE LASIX. CXR SHOWING PLEURAL EFFUSION/PNEUMONIA. SHE WAS UPSET THAT CODE STATUS WAS CHANGED TO DNRCC AND HOSPICE WAS NOTIFIED. R', , AND DAUGHTER WANTED CODE STATUS CHANGED BACK TO FULL CODE WITNESSED BY RN Haja VELASQUEZ. ALSO, WANTS HOSPICE CONSULT CANCELLED. DAUGHTER WANTS DR CARRILLO TO CALL HER TOMORROW. ALSO, DAUGHTER WANTS RN TO CALL IN THE MORNING AND GIVE HER AN UPDATE. Addendum entered by Monalisa Stoddard 10/28/21 22:32: DR CARRILLO SPOKE WITH R' , RICK. DISCUSSED PROGNOSIS OF R'. CODE STATUS ORDER CHANGED TO DNR-CC. DR CARRILLO GAVE VERBAL ORDER AND VERIFIED WITH R' AND . SIGNED PAPER. ALSO, DR CARRILLO. WANTED HOSPICE ON-CALL NOTIFIED TO DISCUSS POSSIBLE IN PT ADMISSION. 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 WANTS APPT TOMORROW SO DAUGHTER CAN BE PRESENT. NOTIFIED MOMO OF REQUEST. IV LASIX GIVEN AT THIS TIME. AWARE THAT HOSPICE NURSE WILL SOON BE CONTACTING HIM TO SET UP APPT FOR TOMORROW. PURPLE BRACELET FOR DNRCC ORDER. R' REFUSED EVENING MEDS THAT WERE LATE, JUST IV LASIX. PURE-WICK IN PLACE. HOB ELEVATED FOR COMFORT. AT BEDSIDE. Addendum entered by Monalisa Stoddard 10/28/21 21:48: CURRENT SPO2 92% ON 10L NC. Original Note: R' BACK FROM ED APPROX 2044. VS 99.3, 139/42, 103, 26R, 79% ON 6LO2. R' DENIES CP BUT STATES SHE IS IN RESP DISTRESS. R' BREATHING LABORED AND SOB. R.T. CALLED. BREATHING TX ADMINISTERED AND O2 INCREASED TO 10L NC. CALLED DR CARRILLO. ORDER TO INCREASE LASIX TO 80MG IV BID AND GIVE DOSE NOW. ALSO, DR CARRILLO ASKED TO TALK TO R' ON PHONE. CURRENTLY TALKING TO HIM VIA PHONE. R' HOB ELEVATED. CONFIRMED CODE STATUS WITH AND R'-REMAINS FULL CODE. R' AND STATE THEY DO NOT WANT HOSPICE. WILL MONITOR.
[2021-10-28] MEDS: Furosemide 100 MG/10 ML Vial 80 MG IV (22:14)
[2021-10-28] MEDS: 0.9% Saline Lock 10 ML Syringe IV (22:15)
[2021-10-29 00:18] VITALS: BP 124/84; PULSE 107; O2SAT 92
--- NOTE | 2021-10-29 02:52 | NURSING ---
Pt pulled up in bed, repositioned, c/o feeling SOB, wheezing, RT called for PRN aerosol.
[2021-10-29 03:12] VITALS: PULSE 103; RESP 22
[2021-10-29] MEDS: Albuterol 2.5 MG/3 ML VIAL.NEB. INHALATION (03:12)
[2021-10-29 03:42] VITALS: BP 115/61; PULSE 104; RESP 30; TEMP 36.1; O2SAT 92
--- NOTE | 2021-10-29 04:14 | NURSING ---
Pt c/o having trouble breathing and not able to get her breath even after breathing tx given by RT, O2 increased to 13L to get POX at 91%, please see vitals. Lung sounds with crackles, pt with increased work of breathing. Lucy only has 200ml in it since Lasix given. Spoke with pt and at length about what she wants done. Pt states she does not want to and wants everything done, is requesting to be sent to ED and be reassessed, does not want to , she states several times. called and spoke with daughter as well, daughter also wants her mom seen in the ED. Report called to DOLLY Tariq in ED that pt and family requesting pt to be reassessed and asking for everything to be done. Transferred to ED via cart, portable O2 tank at 15L, accompanied by .
--- NOTE | 2021-10-29 06:12 | NURSING ---
Spoke with in ED regarding pt condition and pt wishes.
== END 2021-10-29 04:20 | disposition short-term general hospital (02) | DRG 551 ==
PROVIDERS: Admitting Provider Family Medicine Geriatric Medicine; PCP Family Medicine Geriatric Medicine; Visit Provider Family Medicine Geriatric Medicine
DX: M48.061 Spinal stenosis, lumbar region without neurogenic claudication (principal); I50.33 Acute on chronic diastolic (congestive) heart failure; J69.0 Pneumonitis due to inhalation of food and vomit; M48.02 Spinal stenosis, cervical region; E78.5 Hyperlipidemia, unspecified; Q68.8 Other specified congenital musculoskeletal deformities; H91.93 Unspecified hearing loss, bilateral; I27.20 Pulmonary hypertension, unspecified; E87.6 Hypokalemia; R09.02 Hypoxemia; R53.1 Weakness; U09.9 Post COVID-19 condition, unspecified; I11.0 Hypertensive heart disease with heart failure; E66.01 Morbid (severe) obesity due to excess calories; Z68.37 Body mass index [BMI] 37.0-37.9, adult; Z79.899 Other long term (current) drug therapy; Z79.82 Long term (current) use of aspirin
CPT/HCPCS: 36415; 36569; 71046; 73502; 80048; 85025; 92610; 93005; 94640; 94762; 97110; 97116; 97162; 97166; 97530; 97802; A4216; J1940

== ENCOUNTER → 2021-10-18 10:20 | Outpatient (CLI) | payer MEDICARE, OTHER, SELFPAY ==
--- NOTE | 2021-10-18 10:35 | CT_ITS ---
EXAM: CT RIGHT LOWER EXTREMITY WITHOUT INTRAVENOUS CONTRAST CLINICAL INDICATION: PAIN IN JOINT TECHNIQUE: Helically acquired images were obtained of the right lower extremity without intravenous contrast. 2-D reformats were performed by the technologist. This CT exam was performed using one or more of the following dose reduction techniques: automated exposure control, adjustment of the mA and/or kV according to patient size, and/or use of iterative reconstruction technique. This report was created using [employer] report generation technology. COMPARISON: None. FINDINGS: BONES/JOINTS: Right hip joint effusion. Subtle right questionable subcapital fracture with mild impaction. Degenerative findings in the lumbar spine. Right hip fracture is best noted on Se 601 IM: 68 and Se 602 IM: 59. Dystrophic dislocations overlying the right greater trochanter. SOFT TISSUES: Unremarkable. No soft tissue swelling or gas. No radiopaque foreign body. VASCULATURE: There are calcifications of the abdominal aorta. This is consistent for atherosclerotic disease. There is no abdominal aortic aneurysm. There are calcified phleboliths in the pelvis. This makes differentiation with distal ureteral stones difficult. CT/Extremity Lower without Contra IMPRESSION: 1. Right hip joint effusion. 2. Subtle right questionable subcapital fracture with mild impaction. Electronically Signed: Stan Wu MD at 15:57 EST , Service support ,
== END ==
PROVIDERS: PCP Family Medicine Geriatric Medicine; Visit Provider Family Medicine Geriatric Medicine
DX: M25.551 Pain in right hip (principal)
CPT/HCPCS: 73700

== ENCOUNTER → 2021-10-19 15:08 | Outpatient (CLI) | payer MEDICARE, OTHER, SELFPAY ==
--- NOTE | 2021-10-19 15:14 | MRI_ITS ---
STUDY: MRI RIGHT HIP REASON FOR EXAM: Female, 81 years old. PAIN R HIP and gt;L NO TRAUMA, NUMBNESS BILATERAL LOWER EXTREMITIES TECHNIQUE: Standardized fat and water weighted pulse sequences were obtained in all 3 orthogonal planes. Pelvic images are included on several sequences. Moderate fatty atrophy is seen throughout the muscles. Lumbar spine degenerative changes are partially visualized. COMPARISON: CT of the right hip dated October FINDINGS: Decreased offset of the lateral aspect of the right head neck junction is consistent with cam-type femoral acetabular impingement. No marrow edema or fracture or avascular necrosis is seen. Small bilateral hip joint effusions are present. The hip joints are also mildly narrowed. Small to moderate size loose bodies are present in the lateral and proximal aspect of the right hip joint. Mild osteoarthritis of the acetabular roof also noted. The superior lateral aspect of the right acetabular labrum is globular in appearance likely due to high-grade intrasubstance degeneration or tearing with associated scarring. Mild to moderate strain edema is seen in the bilateral gluteal muscles. Normal acetabulum. Normal femoral head. Normal femoral neck and intratrochanteric region. Normal gluteus minimus, medius and iliopsoas tendons and distal insertions. There is no trochanteric, iliopsoas or iliopectineal bursitis. Normal superior and inferior pubic rami. Normal pubic symphysis. Normal ischial tuberosity. Normal origin of the hamstring tendons. Normal visualized iliac wing, sacroiliac joint, and sacral ala. Normal visualized soft tissue structures of the pelvis. MRI/Lower Ext Joint Only (Routine) IMPRESSION: 1. Decreased offset of the lateral aspect of the right head neck junction is consistent with cam-type femoral acetabular impingement. 2. No marrow edema or fracture or avascular necrosis is seen. 3. Small bilateral hip joint effusions are present. The hip joints are also mildly narrowed. 4. Small to moderate size loose bodies are present in the lateral and proximal aspect of the right hip joint. 5. The superior lateral aspect of the right acetabular labrum is globular in appearance likely due to high-grade intrasubstance degeneration or tearing with associated scarring. Electronically Signed: Dave Castillo MD at 23:45 EST , Service support ,
== END ==
PROVIDERS: PCP Family Medicine Geriatric Medicine; Visit Provider Orthopaedic Surgery
DX: M25.551 Pain in right hip (principal)
CPT/HCPCS: 73721

== ENCOUNTER → 2021-10-27 12:02 | Outpatient (CLI) | payer MEDICARE, OTHER, SELFPAY ==
--- NOTE | 2021-10-27 12:09 | VDUE_ITS ---
Reason For Study: Swelling Left Proximal Left jugular vein is spontaneous, widely patent, phasic, with no intraluminal echogenicity noted. Left subclavian vein is spontaneous, widely patent, phasic, with no intraluminal echogenicity noted. Left Arm Left axillary vein is spontaneous, patent, phasic, competent, compressible and demonstrates augmentation. Left brachial vein is compressible. Left cephalic vein is compressible. Left basilic vein is compressible. Left Lower Arm Left radial vein is compressible. Left ulnar vein is compressible. Patient Safety Prelim to TCU. VL/Venous Duplex US, Unilateral Interpretation Summary No evidence for acute deep venous thrombosis[left] upper extremity with patent and compressible cephalic and basilic veins. Ordering Physician: Momo Carvajal Referring Physician: Momo Carvajal Chi Performed By: Monalisa Bryant RVT ?
== END ==
PROVIDERS: PCP Family Medicine Geriatric Medicine; Visit Provider Family Medicine Geriatric Medicine
DX: M79.89 Other specified soft tissue disorders (principal)
CPT/HCPCS: 93971

== ENCOUNTER 2021-10-28 16:53 | Emergency (ER) | payer MEDICARE, OTHER, SELFPAY ==
--- NOTE | 2021-10-27 10:18 | EKG12_ITS ---
Test Reason : CP Blood Pressure : / mmHG Vent. Rate : 089 BPM Atrial Rate : 089 BPM P-R Int : 250 ms QRS Dur : 084 ms QT Int : 350 ms P-R-T Axes : 063 -60 026 degrees QTc Int : 425 ms Sinus rhythm with 1st degree A-V block Left axis deviation Low voltage QRS Inferior infarct , age undetermined Abnormal ECG Confirmed by ALEKSANDAR PRYOR, BRETT ([id number]), film editor ROSANA NIETO ([id number]) on 10/31/2021 8:41:00 AM Referred By: LORENA Confirmed By:BRETT HUERTAS MD
[2021-10-28 17:00] VITALS: BP 123/63; PULSE 105; RESP 30; TEMP 36.9; O2SAT 92; BMI 38.2
[2021-10-28 17:07] VITALS: BP 123/63; PULSE 105; RESP 30; TEMP 36.9; O2SAT 92
--- NOTE | 2021-10-28 17:22 | EKG12_ITS ---
Test Reason : Blood Pressure : / mmHG Vent. Rate : 105 BPM Atrial Rate : 105 BPM P-R Int : 188 ms QRS Dur : 102 ms QT Int : 334 ms P-R-T Axes : 045 080 047 degrees QTc Int : 441 ms Sinus tachycardia Low voltage QRS Possible LAE Incomplete right bundle branch block Poor R wave progression Confirmed by JASON PRYOR, BREANA ([id number]), subeditor ROSANA NIETO ([id number]) on 10/30/2021 9:12:39 AM Referred By: ASHLEY Confirmed By:BREANA GOMEZ MD
--- NOTE | 2021-10-28 17:23 | EDS_ITS ---
HPI History of Present Illness Chief Complaint: Chest Pain Detail of Chief Complaint: Chest pain that started about an hour ago. Informant: patient Narrative Narrative: Patient presents to the emergency department with complaint of chest pain that started an hour ago. She describes a heaviness in her chest like to be sitting on her. Patient states it lasted maybe 5 minutes. Patient in the transitional care unit currently and has been there for about 3 weeks. Patient states that she has been somewhat more short of breath today. She had an episode yesterday where she choked on one of her pills and apparently turned blue and was concern for aspiration. Patient denies any fever. She denies cough. She denies any heart history. Prior Similar Symptoms: No PFSH PFSH Medical History Acute congestive heart failure Arthrogryposis COVID-19 Diastolic CHF Hearing loss, left Hearing loss, right HLD (hyperlipidemia) HTN (hypertension) Hypoxia Kidney disease Morbid obesity with BMI of 40.0-44.9, adult Non-smoker Pneumonia S/p nephrectomy SBO (small bowel obstruction) Sepsis Shortness of breath Single kidney Wears hearing aid in both ears Home Medications aspirin 81 mg PO DAILY@0800 07/12/15 [History Last Taken 10/01/21] calcium carbonate-vitamin D3 1 tab PO DAILY 07/12/15 [History Last Taken 10/01/21] L.acidoph, paracasei,B. lactis 1 ea PO DAILY 03/22/19 [History Last Taken 10/01/21] furosemide 40 mg PO BID 03/22/19 [History Last Taken 10/01/21] Mineral Oil/Petrolatum,White [Eucerin] 1 applic TOPICAL BID #0 10/26/21 [Rx Last Taken Unknown] acetaminophen 1,000 mg PO Q6H PRN PRN #0 tab 10/26/21 [Rx Last Taken Unknown] gabapentin 100 mg PO TIDCM 30 Days #90 cap 10/26/21 [Rx Last Taken Unknown] menthol-zinc oxide [Calmoseptine] 1 applic TOPICAL BID #0 g 10/26/21 [Rx Last Taken Unknown] albuterol sulfate [Ventolin] 2.5 mg INHALATION Q2H PRN PRN 10/28/21 [History Last Taken Unknown] bisacodyl 10 mg PO QHS PRN 10/28/21 [History Last Taken Unknown] furosemide 40 mg PO BID 10/28/21 [History Last Taken Unknown] ipratropium-albuterol [DuoNeb] 3 ml INHALATION Q6H PRN 10/28/21 [History Last Taken Unknown] levofloxacin in D5W [Levaquin in 5 % dextrose] 750 mg IV Q24H 10/28/21 [History Last Taken Unknown] nitroglycerin 0.4 mg SUBLINGUAL Q5M PRN 10/28/21 [History Last Taken Unknown] nystatin [Mycostatin] 1 applic TOPICAL BID 10/28/21 [History Last Taken Unknown] potassium chloride 20 meq PO BID 10/28/21 [History Last Taken Unknown] senna-docusate sodium 1 tab PO BID 10/28/21 [History Last Taken Unknown] Allergy/AdvReac Type Severity Reaction Status Date / Time No Known Allergies Allergy Verified 10/28/21 17:00 Surgical History H/O section History of orthopedic surgery S/p nephrectomy Status post laparoscopy Social History household members: spouse Smoking Status: Never smoker alcohol intake: never substance use type: does not use ROS ROS ED Review of Systems ROS Unobtainable: other Constitutional Constitutional ED: Reports lethargy; Denies chills, fever(s), sweats or weight loss Eyes Eyes: Denies blurry vision, change in vision or diplopia ENT ENT ED: Denies rhinorrhea or sore throat Cardiovascular Cardiovascular: Reports chest pain and racing heartbeat; Denies orthopnea Respiratory/Chest Respiratory/Chest: Reports dyspnea and dyspnea on exertion; Denies cough, orthopnea or sputum Gastrointestinal Gastrointestinal: Denies abdominal pain, diarrhea, nausea or vomiting Genitourinary Genitourinary ED: Denies dysuria, hematuria or urinary frequency Musculoskeletal Musculoskeletal: Denies arthralgias, back pain, myalgias or neck pain Integumentary Denies abscess, Abrasions or rash Neurologic Neurologic: Denies headache(s) or weakness Psychiatric Psychiatric: Denies anxiety, depression or suicidal thoughts Endocrine Endocrinology: Denies polydipsia, polyphagia or polyuria Hematologic/Lymphatic Hematologic/Lymphatic: Denies easy bleeding, easy bruising or lymphadenopathy Allergic/Immunologic Allergic/Immunologic ED: Denies mouth swelling, tongue swelling or urticaria EXAM Physical Exam Const Vital Signs: 10/28/21 17:00 10/28/21 17:07 10/28/21 17:29 Temperature 98.4 F 98.4 F Temperature Source Oral Oral Pulse Rate 105 H 105 H Respiratory Rate 30 H 30 H Respiratory Effort Short of Breath Respiratory Pattern Tachypnea Blood Pressure 123/63 H 123/63 H Blood Pressure Mean 83 83 Pulse Ox 92 92 Oxygen Delivery Method Nasal Cannula Nasal Cannula Nasal Cannula Oxygen Flow Rate (L/min) 5 5 5 10/28/21 18:00 10/28/21 19:53 Temperature Temperature Source Pulse Rate 100 114 H Respiratory Rate 30 H 29 H Respiratory Effort Respiratory Pattern Blood Pressure 111/66 Blood Pressure Mean 81 Pulse Ox 94 90 Oxygen Delivery Method Nasal Cannula Nasal Cannula Oxygen Flow Rate (L/min) 5 6 Positive well nourished and well developed General Appearance ED: well developed and NAD HEENT Reports TM's clear and moist mucous membranes normocephalic and atraumatic; Negative for trauma or tenderness Tympanic Membrane ED: Yes TM's clear Eyes PERRL and EOMs intact bilaterally General Eye ED: Negative for pale conjunctiva or scleral icterus Neck no lymphadenopathy, supple and no JVD General: Negative for tenderness Chest Wall inspection of chest normal and palpation of chest normal Chest: Negative for tenderness Resp normal respiratory effort Resp Narrative: Few rales in bases. Patient is tachypneic. Mild conversational dyspnea. Effort and Inspection: Negative for respiratory distress or pain with movement Auscultation: rales; Negative for rhonchi, wheezes or diminished lung sounds Cardio regular rate, regular rhythm, S1 normal heart sound, S2 normal heart sound and no murmurs Peripheral Pulses: pulses 2+ throughout GI normal to inspection, nondistended, normoactive bowel sounds, soft to palpation, non-tender, non-distended and no masses Back/Spine no CVA tenderness and no thoracic nor lumbar tenderness Extremity normal to inspection General Extremety ED: Negative for edema General Extremity: Negative for edema Neuro oriented x3, CN's II-XII intact bilaterally, no sensory deficits noted and gait normal Sensorium / Orientation: awake, alert, oriented to person, oriented to place and oriented to time Motor Exam: strength 5/5 throughout and strength abnormal Psych mental status grossly normal Skin no rashes or lesions noted and no wounds Heart Score History: Moderately Suspicious ECG: Nonspecific Repolarization Age: >/= 65 years Risk Factors: 1 or 2 Risk Factors Troponin: </= Normal Limit Score: 5 MDM MDM MDM Narrative Medical decision making narrative: IV line established on arrival. Patient placed on a classroom monitor. Her work-up in the department was unremarkable. She did have an elevated D-dimer therefore CTA was obtained to rule out PE. There was no evidence for PE. She did have some pleural effusions and evidence of pneumonia. Patient already being treated for pneumonia and apparently has had recent Covid with continued dyspnea. I discussed case with her primary care physician who has had conversations with her and her family about going home and with hospice. At this point etiology of her chest pain is unclear however it somewhat atypical and was short-lived and she is currently pain-free. Patient will be discharged back to the transitional care unit. Advised to return if persistent pain, worsening shortness of breath, or conditions worsen anyway. Lab Data Attestation: I reviewed the patient's lab results. Labs: Laboratory Results - last 24 hr 10/28/21 10/28/21 10/28/21 17:48 17:48 17:48 WBC 9.0 RBC 3.03 L Hgb 9.3 L Hct 31.0 L MCV 102.3 H MCH 30.7 MCHC 30.0 L RDW Std Deviation 55.4 H RDW Coeff of Sorin 14.6 Plt Count 292 MPV 9.3 Immature Gran % (Auto) 0.400 Neut % (Auto) 85.6 H Lymph % (Auto) 4.2 L [place] % (Auto) 8.9 Eos % (Auto) 0.7 Baso % (Auto) 0.2 Absolute Neuts (auto) 7.7 Absolute Lymphs (auto) 0.38 L Nucleated RBC % 0 Differential Comment SCANNED D-Dimer Quant (PE/DVT) 0.80 H* Sodium 135 L Potassium 3.7 Chloride 88 L Carbon Dioxide 42.0 H Anion Gap 5 BUN 17 Creatinine 0.48 L Estim Creat Clear Calc 59.78 Est GFR (MDRD) Af Amer 159 Est GFR (MDRD) Non-Af 132 BUN/Creatinine Ratio 35.2 H Glucose 106 Calcium 9.3 Troponin I High Sens 11 B-Natriuretic Peptide 10/28/21 10/28/21 17:48 19:40 WBC RBC Hgb Hct MCV MCH MCHC RDW Std Deviation RDW Coeff of Sorin Plt Count MPV Immature Gran % (Auto) Neut % (Auto) Lymph % (Auto) [place] % (Auto) Eos % (Auto) Baso % (Auto) Absolute Neuts (auto) Absolute Lymphs (auto) Nucleated RBC % Differential Comment D-Dimer Quant (PE/DVT) Sodium Potassium Chloride Carbon Dioxide Anion Gap BUN Creatinine Estim Creat Clear Calc Est GFR (MDRD) Af Amer Est GFR (MDRD) Non-Af BUN/Creatinine Ratio Glucose Calcium Troponin I High Sens 16 B-Natriuretic Peptide 135.7 H Radiography Diagnostic Testing: Clinical Impression(s) from Imaging Studies Chest CTA 10/28/21 18:29 IMPRESSION: 1. No central or segmental pulmonary embolism. 2. Moderate bilateral pleural effusions. Lower lobe dominant atelectasis/volume loss, although pneumonia is possible. Electronically Signed: Yayo Puckett MD (Brooks) at 19:17 EST , Service support , EKG Initial EKG: Attestation: I personally reviewed and interpreted this EKG as follows: Comments: Sinus tachycardia with a ventricular rate of 105 bpm with no acute ST segment changes. Discharge Plan Triage Chief Complaint: Chest Pain ED Provider: Carlos Oviedo Dx/Rx/DC Orders Clinical Impression: Chest pain, Pneumonia, Acute dyspnea Instructions: ED Chest Pain, Uncertain Cause, ED Dyspnea, ED Pneumonia (Adult) Prescriptions: No Action L.acidoph, paracasei,B. lactis 1 EACH capsule 1 ea PO DAILY RF: 0 furosemide 40 MG tablet 40 mg PO BID RF: 0 acetaminophen 500 mg Tablet 1,000 mg PO Q6H PRN PRN (Reason: Pain Score 1-10) Qty: 0 RF: 0 gabapentin 100 mg Capsule 100 mg PO TIDCM 30 Days Qty: 90 RF: 0 menthol-zinc oxide [Calmoseptine] 0.44-20.6 % Ointment 1 applic topical BID Qty: 0 RF: 0 Mineral Oil/Petrolatum,White [Eucerin] 1 applic topical BID Qty: 0 RF: 0 ipratropium-albuterol [DuoNeb] 0.5 mg-3 mg(2.5 mg base)/3 mL Solution For Nebulization 3 ml INHALATION Q6H PRN (Reason: Shortness Of Breath) RF: 0 albuterol sulfate [Ventolin] 2.5 mg /3 mL (0.083 %) Solution For Nebulization 2.5 mg INHALATION Q2H PRN PRN (Reason: Shortness Of Breath) RF: 0 nitroglycerin 0.4 mg Tablet, Sublingual 0.4 mg SUBLINGUAL Q5M PRN (Reason: Chest Pain) RF: 0 nystatin [Mycostatin] 100,000 unit/gram Powder 1 applic TOPICAL BID RF: 0 bisacodyl 5 mg Tablet 10 mg PO QHS PRN (Reason: Constipation) RF: 0 senna-docusate sodium Tablet 1 tab PO BID RF: 0 levofloxacin in D5W [Levaquin in 5 % dextrose] 750 mg/150 mL Piggyback 750 mg IV Q24H RF: 0 furosemide 40 mg/4 mL Solution 40 mg PO BID RF: 0 potassium chloride 20 mEq Tablet Extended Release 20 meq PO BID RF: 0 aspirin 81 MG tablet,chewable 81 mg PO DAILY@0800 RF: 0 calcium carbonate-vitamin D3 1 TAB tablet 1 tab PO DAILY RF: 0 Primary Care Provider: Momo Carvajal Chi Referrals: Momo Carvajal Chi, MD [Primary Care Provider] - 1-2 Days if not improving Disposition Disposition: Home, Self Care
[2021-10-28] MEDS: Aspirin 81 MG TAB.CHEW 324 MG PO (17:59)
[2021-10-28 18:00] VITALS: BP 111/66; PULSE 100; RESP 30; O2SAT 94
[2021-10-28 18:01] LABS: Absolute Lymphocyte Count 0.38 X10^3/uL (0.83-4.51); Absolute Neutrophil Count 7.7 X10^3/uL (2.0-7.7); Basophil# 0.02 X10^3/uL; Basophil% 0.2 % (0-1); Eosinophil# 0.06 X10^3/uL; Eosinophils% 0.7 % (0-5); Hemoglobin 9.3 g/dL (12.0-15.0); Lymphocyte # 0.38 X10^3/ul (0.83-4.51); Lymphocyte % 4.2 % (19-41); Mean Corpuscular Hgb 30.7 pg (27.0-32.0); Mean Corpuscular Volume 102.3 fL (81-99); Mean Platelet Vol. 9.3 fl (6.2-12.0); Monocyte% 8.9 % (0-10); NRBC Flagged by Analyzer 0 % (0-5); Neutrophil # 7.67 X10^3/uL (2.7-7.7); Neutrophil % 85.6 % (47-70); POSITIVE DIFFERENTIAL YES; Platelet Count 292 K/mm3 (150-450); RBC Distribution Width CV 14.6 % (11.6-14.6); RBC Distribution Width SD 55.4 fl (35.1-43.9); Red Blood Count 3.03 M/mm3 (4.2-5.4)
[2021-10-28 18:06] LABS: Differential Indicated SCAN CRITERIA MET
[2021-10-28 18:20] LABS: Anion Gap 5 (5-15); BUN 17 mg/dL (7-18); BUN/Creat Ratio 35.2 RATIO (10-20); Calcium,Total 9.3 mg/dL (8.5-10.1); Chloride 88 mmol/L (98-107); Creatinine, Serum 0.48 mg/dL (0.55-1.02); EST Glomerular Filtration Rate 132 mL/min (>60); Est Glom Filt Rate - Afr Amer 159 mL/min (>60); Estimated Creatinine Clearance 59.78 ml/min; Glucose 106 mg/dL (74-106); Potassium 3.7 mmol/L (3.5-5.1); Sodium Level 135 mmol/L (136-145); Troponin-I HS 11 pg/mL (3.0-54.0)
[2021-10-28 18:28] LABS: Differential Comment SCANNED
--- NOTE | 2021-10-28 18:29 | CT_ITS ---
STUDY: CTA CHEST REASON FOR EXAM: Female, 81 years old. elevated d-dimer RADIATION DOSAGE (If Supplied By Facility): CTDIvol = ( 10.80 ) mGy, DLP = ( ) mGycm TECHNIQUE: The examination was performed with the intravenous administration of IV 75mL Isovue-370. Post-processing of the angiographic images was performed, with multiplanar reformation and 3D reconstruction. Individualized dose optimization techniques were used for this CT. COMPARISON: 09/12/2021 FINDINGS: Normal enhancement of the main pulmonary artery and right and left pulmonary arteries. Normal enhancement of the bilateral peripheral pulmonary arteries. There is no demonstrated pulmonary embolism. Normal thoracic aorta and visualized great vessels. There is no demonstrated aortic dissection. Mild cardiomegaly. Some compression of the heart due to exaggerated thoracic lordosis, stable. Left arm PICC extending to the lower SVC. Normal mediastinum. Normal hilar regions. Normal visualized trachea and bronchi. The lungs are under expanded. Atelectasis of the bilateral dependent lungs, lower lobe predominant. Patchy peribronchial consolidation of the bilateral upper lobes. Moderate volume bilateral pleural effusions. Normal chest wall structures. There are degenerative changes of the shoulders. Normal visualized upper abdomen. CT/CTA Chest W/WO Contrast IMPRESSION: 1. No central or segmental pulmonary embolism. 2. Moderate bilateral pleural effusions. Lower lobe dominant atelectasis/volume loss, although pneumonia is possible. Electronically Signed: Yayo Puckett MD (Brooks) at 19:17 EST , Service support ,
[2021-10-28 18:57] LABS: BNP,B-Type NATRIURETIC PEPTIDE 135.7 pg/mL (0-100)
--- NOTE | 2021-10-28 19:47 | ED.RN ---
o2 increased to 6l nc, pulse ox was 81%,will monitor.
[2021-10-28 19:53] VITALS: PULSE 114; RESP 29; O2SAT 90
[2021-10-28 20:02] LABS: Troponin-I HS 16 pg/mL (3.0-54.0)
[2021-10-28 20:11] VITALS: BP 117/50; PULSE 101; RESP 28; O2SAT 90
[2021-10-28 20:23] VITALS: BP 111/59; PULSE 104; RESP 28; O2SAT 91
== END 2021-10-28 20:25 | disposition home or self-care (01) ==
PROVIDERS: Emergency Provider Emergency Medicine; PCP Family Medicine Geriatric Medicine
DX: J18.9 Pneumonia, unspecified organism (principal); R07.9 Chest pain, unspecified; I11.0 Hypertensive heart disease with heart failure; I50.32 Chronic diastolic (congestive) heart failure; E78.5 Hyperlipidemia, unspecified; Q68.8 Other specified congenital musculoskeletal deformities; H91.93 Unspecified hearing loss, bilateral; E66.01 Morbid (severe) obesity due to excess calories; Z68.41 Body mass index [BMI] 40.0-44.9, adult; Z79.82 Long term (current) use of aspirin; Z79.899 Other long term (current) drug therapy; Z86.16 Personal history of COVID-19; Z90.5 Acquired absence of kidney
CPT/HCPCS: 36592; 71275; 80048; 83880; 84484; 85025; 85379; 93005; 99283; Q9967; A4216

== ENCOUNTER 2021-10-29 04:18 | Inpatient (IN) | payer MEDICARE, OTHER, SELFPAY ==
[2021-10-29] VITALS (32 sets, daily range): BP systolic 78–162; BP diastolic 34–84; PULSE 92–127; RESP 14–41; TEMP 35.9–36.9; O2SAT 84–100; BMI 42.9; BMI 38.0
--- NOTE | 2021-10-29 04:39 | EKG12_ITS ---
Test Reason : CP Blood Pressure : / mmHG Vent. Rate : 100 BPM Atrial Rate : 100 BPM P-R Int : 208 ms QRS Dur : 098 ms QT Int : 364 ms P-R-T Axes : 048 079 036 degrees QTc Int : 469 ms Normal sinus rhythm Low voltage QRS Incomplete right bundle branch block Borderline ECG Confirmed by JASON PRYOR, BREANA ([id number]), scientific editor ROSANA NIETO ([id number]) on 10/30/2021 9:43:57 AM Referred By: PL Confirmed By:BREANA GOMEZ MD
--- NOTE | 2021-10-29 04:43 | ED.VIS.DYS ---
HPI History of Present Illness Chief Complaint: Shortness of Breath Informant: patient and family Narrative Narrative: Patient is evidently sent down from TCU for worsening dyspnea and increasing needs for oxygen. Patient states she does not feel any different. She just goes where they tell her. She does admit to having some shortness of breath. She is being treated for a pneumonia with Levaquin. She was not aware of this but her son was. She had been seen earlier today. Extensive work-up including CAT scan of the chest was done. There was no pulmonary embolus but there was sign of some effusions. Patient has been in TCU for almost 1 month. She was evidently in the hospital for a few days prior to that. She was in the hospital for work sending weakness of lower extremities thought to be related to spinal stenosis. Patient also did have Covid back in August. She had her vaccines but has not had a booster because of the ongoing illness. Patient has Lasix 40 twice daily listed on her med list. She is not sure if she is taking this now. I am trying to find out if this is current. [facility] Medical History Acute congestive heart failure Arthrogryposis Bilateral leg weakness Cervical cord myelomalacia Cervical stenosis of spinal canal COVID-19 Diastolic CHF Hearing loss, left Hearing loss, right HLD (hyperlipidemia) HTN (hypertension) Hypoxia Kidney disease Lumbar stenosis Morbid obesity with BMI of 40.0-44.9, adult Non-smoker Pneumonia S/p nephrectomy SBO (small bowel obstruction) Sepsis Shortness of breath Single kidney Wears hearing aid in both ears Home Medications aspirin 81 mg PO DAILY@0800 07/12/15 [History Last Taken 10/01/21] calcium carbonate-vitamin D3 1 tab PO DAILY 07/12/15 [History Last Taken 10/01/21] L.acidoph, paracasei,B. lactis 1 ea PO DAILY 03/22/19 [History Last Taken 10/01/21] furosemide 40 mg PO BID 03/22/19 [History Last Taken 10/01/21] Mineral Oil/Petrolatum,White [Eucerin] 1 applic TOPICAL BID #0 10/26/21 [Rx Last Taken Unknown] acetaminophen 1,000 mg PO Q6H PRN PRN #0 tab 10/26/21 [Rx Last Taken Unknown] gabapentin 100 mg PO TIDCM 30 Days #90 cap 10/26/21 [Rx Last Taken Unknown] menthol-zinc oxide [Calmoseptine] 1 applic TOPICAL BID #0 g 10/26/21 [Rx Last Taken Unknown] albuterol sulfate [Ventolin] 2.5 mg INHALATION Q2H PRN PRN 10/28/21 [History Last Taken Unknown] bisacodyl 10 mg PO QHS PRN 10/28/21 [History Last Taken Unknown] furosemide 40 mg PO BID 10/28/21 [History Last Taken Unknown] ipratropium-albuterol [DuoNeb] 3 ml INHALATION Q6H PRN 10/28/21 [History Last Taken Unknown] levofloxacin in D5W [Levaquin in 5 % dextrose] 750 mg IV Q24H 10/28/21 [History Last Taken Unknown] nitroglycerin 0.4 mg SUBLINGUAL Q5M PRN 10/28/21 [History Last Taken Unknown] nystatin [Mycostatin] 1 applic TOPICAL BID 10/28/21 [History Last Taken Unknown] potassium chloride 20 meq PO BID 10/28/21 [History Last Taken Unknown] senna-docusate sodium 1 tab PO BID 10/28/21 [History Last Taken Unknown] Allergy/AdvReac Type Severity Reaction Status Date / Time No Known Allergies Allergy Verified 10/28/21 17:00 Surgical History H/O section History of orthopedic surgery S/p nephrectomy Status post laparoscopy Social History household members: spouse Smoking Status: Never smoker alcohol intake: never substance use type: does not use ROS ROS ED Constitutional Constitutional ED: Denies fever(s) Eyes Eyes: Denies blurry vision ENT ENT ED: Denies rhinorrhea or sore throat Cardiovascular Cardiovascular: Denies chest pain Respiratory/Chest Respiratory/Chest: Reports dyspnea; Denies sputum Gastrointestinal Gastrointestinal: Denies diarrhea, nausea or vomiting Genitourinary Genitourinary ED: Denies dysuria Musculoskeletal Musculoskeletal: Denies myalgias Integumentary Denies rash Neurologic Neurologic: Reports paresthesias, weakness and other Details: Bilateral lower extremity weakness and paresthesias that have gotten progressively worse. She has a known history of spinal stenosis that is thought to be nonsurgical. Endocrine Endocrinology: Denies polydipsia or polyuria Hematologic/Lymphatic Hematologic/Lymphatic: Denies easy bleeding or easy bruising Allergic/Immunologic Allergic/Immunologic ED: Denies mouth swelling or urticaria EXAM Physical Exam Const Vital Signs: 10/29/21 04:18 10/29/21 04:29 10/29/21 04:30 Temperature 97.8 F 97.8 F Temperature Source Oral Oral Pulse Rate 102 H 102 H Respiratory Rate 22 H 22 H Respiratory Effort Short of Breath Blood Pressure 100/55 L 100/55 L Blood Pressure Mean 70 70 Pulse Ox 97 97 Oxygen Delivery Method High Flow High Flow High Flow Oxygen Flow Rate (L/min) 15 15 15 10/29/21 05:34 Temperature Temperature Source Pulse Rate 99 Respiratory Rate 27 H Respiratory Effort Blood Pressure 104/81 H Blood Pressure Mean 88 Pulse Ox 95 Oxygen Delivery Method Non-Rebreather @ 15L/min Oxygen Flow Rate (L/min) 10 Positive well nourished, well developed and obese General Appearance ED: well developed and NAD Nutritional Appearance: obese HEENT Reports moist mucous membranes Eyes General Eye ED: Negative for pale conjunctiva or scleral icterus Neck no JVD Neck Narrative: Neck size and shape makes evaluation of JVD difficult. Resp Resp Narrative: Bilateral decreased breath sounds with bilateral coarse breath sounds also. No wheezes heard. Auscultation: rhonchi and diminished lung sounds Cardio regular rate Cardio Narrative: Mild tachycardia. I do not hear murmur. Rate: tachycardic GI non-tender Palpation: soft Extremity Extremity Narrative: Diffusely atrophic extremities which is not new. No swelling. No signs of infection. Neuro Neuro Narrative: Patient is alert and appropriate. She is acting normally per her son. Sensorium / Orientation: alert Skin Lesions: no lesions Rashes: no rashes MDM MDM MDM Narrative Medical decision making narrative: Patient's blood work shows baseline anemia. White count is normal. Electrolytes show slightly low sodium and chloride. Troponin still negative on a repeat. Lactate is normal. BNP is slightly higher but still not markedly abnormal considering her age. X-ray does show congestion and possible consolidation. I also reviewed the report of her recent CTA from yesterday. Patient is requiring increased oxygen. While I was in the room I turned her down to 10 L. She stayed at 94 to 97%. I turned her down to 8 L and she did well. When she falls asleep she desaturates. When she is awake 8 L is more than enough oxygen. With her increased oxygen needs, we will bring her in the hospital. There was evidently discussion that she was hospice care. When she went back to TCU, there was confusion about this. It sounds like the patient and her family do not know anything about this. There evidently was a palliative care consult however when she was in the hospital. But at this point they would like to make her full code. For this reason we will now admit her. She may benefit from thoracentesis. However, this is a complex chronically ill patient. She has multifactorial reasons to cause these effusions and have hypoxia. She just had a CTA hours ago so I will not repeat this. Case was discussed with hospitalist. Lab Data Attestation: I reviewed the patient's lab results. Labs: Laboratory Results - last 24 hr 10/29/21 10/29/21 10/29/21 04:57 04:57 04:57 WBC 8.8 RBC 3.18 L Hgb 9.8 L Hct 33.0 L MCV 103.8 H MCH 30.8 MCHC 29.7 L RDW Std Deviation 56.1 H RDW Coeff of Sorin 14.6 Plt Count 298 MPV 9.4 Immature Gran % (Auto) 0.700 Neut % (Auto) 90.5 H Lymph % (Auto) 2.7 L [place] % (Auto) 5.8 Eos % (Auto) 0.1 Baso % (Auto) 0.2 Absolute Neuts (auto) 8.0 H Absolute Lymphs (auto) 0.24 L Nucleated RBC % 0 Differential Comment SCANNED Sodium 135 L Potassium 3.6 Chloride 85 L Carbon Dioxide 42.0 H Anion Gap 8 BUN 18 Creatinine 0.48 L Estim Creat Clear Calc 67.04 Est GFR (MDRD) Af Amer 162 Est GFR (MDRD) Non-Af 134 BUN/Creatinine Ratio 37.7 H Glucose 117 H Lactic Acid 0.3 L Calcium 9.1 Troponin I High Sens 19 B-Natriuretic Peptide 10/29/21 04:57 WBC RBC Hgb Hct MCV MCH MCHC RDW Std Deviation RDW Coeff of Sorin Plt Count MPV Immature Gran % (Auto) Neut % (Auto) Lymph % (Auto) [place] % (Auto) Eos % (Auto) Baso % (Auto) Absolute Neuts (auto) Absolute Lymphs (auto) Nucleated RBC % Differential Comment Sodium Potassium Chloride Carbon Dioxide Anion Gap BUN Creatinine Estim Creat Clear Calc Est GFR (MDRD) Af Amer Est GFR (MDRD) Non-Af BUN/Creatinine Ratio Glucose Lactic Acid Calcium Troponin I High Sens B-Natriuretic Peptide 217.6 H Radiography Diagnostic Testing: Clinical Impression(s) from Imaging Studies Chest X-Ray 10/29/21 04:52 IMPRESSION: Right-sided PICC line tip in the atriocaval junction. Opacification of the lower lobes which is a combination of bilateral effusions and consolidation. Moderate cardiomegaly. Electronically Signed: Laisha Mcclain MD at 5:35 EST Tel , Service support , EKG Initial EKG: Comments: EKG done for dyspnea read by me shows normal sinus rhythm with rate Discharge Plan Triage Chief Complaint: Shortness of Breath ED Provider: Mauri Nelson Dx/Rx/DC Orders Clinical Impression: Hypoxia, Bilateral pleural effusion Prescriptions: No Action L.acidoph, paracasei,B. lactis 1 EACH capsule 1 ea PO DAILY RF: 0 furosemide 40 MG tablet 40 mg PO BID RF: 0 acetaminophen 500 mg Tablet 1,000 mg PO Q6H PRN PRN (Reason: Pain Score 1-10) Qty: 0 RF: 0 gabapentin 100 mg Capsule 100 mg PO TIDCM 30 Days Qty: 90 RF: 0 menthol-zinc oxide [Calmoseptine] 0.44-20.6 % Ointment 1 applic topical BID Qty: 0 RF: 0 Mineral Oil/Petrolatum,White [Eucerin] 1 applic topical BID Qty: 0 RF: 0 ipratropium-albuterol [DuoNeb] 0.5 mg-3 mg(2.5 mg base)/3 mL Solution For Nebulization 3 ml INHALATION Q6H PRN (Reason: Shortness Of Breath) RF: 0 albuterol sulfate [Ventolin] 2.5 mg /3 mL (0.083 %) Solution For Nebulization 2.5 mg INHALATION Q2H PRN PRN (Reason: Shortness Of Breath) RF: 0 nitroglycerin 0.4 mg Tablet, Sublingual 0.4 mg SUBLINGUAL Q5M PRN (Reason: Chest Pain) RF: 0 nystatin [Mycostatin] 100,000 unit/gram Powder 1 applic TOPICAL BID RF: 0 bisacodyl 5 mg Tablet 10 mg PO QHS PRN (Reason: Constipation) RF: 0 senna-docusate sodium Tablet 1 tab PO BID RF: 0 levofloxacin in D5W [Levaquin in 5 % dextrose] 750 mg/150 mL Piggyback 750 mg IV Q24H RF: 0 furosemide 40 mg/4 mL Solution 40 mg PO BID RF: 0 potassium chloride 20 mEq Tablet Extended Release 20 meq PO BID RF: 0 aspirin 81 MG tablet,chewable 81 mg PO DAILY@0800 RF: 0 calcium carbonate-vitamin D3 1 TAB tablet 1 tab PO DAILY RF: 0 Primary Care Provider: Momo Carvajal Chi Referrals: Momo Carvajal Chi, MD [Primary Care Provider] - Disposition Disposition: Acute Care Hospital [facility]
--- NOTE | 2021-10-29 04:52 | RAD_ITS ---
STUDY: X-RAY CHEST REASON FOR EXAM: Female, 81 years old. Cough, dyspnea TECHNIQUE: Single AP portable view of the chest. COMPARISON: October 28, 2021 chest x-ray FINDINGS: There is a left-sided PICC line the tip is in the atriocaval junction. There is persistent opacification of the lower lobes. There is moderate cardiac enlargement. Normal mediastinum and fouzia. Normal visualized pulmonary arteries. Normal visualized aortic arch and descending thoracic aorta. Normal visualized thoracic spine. Normal visualized ribs, clavicles, and shoulders. There is no demonstrated abnormality of the visualized soft tissue structures of the upper abdomen. RAD/Chest 1 View (Portable) IMPRESSION: Right-sided PICC line tip in the atriocaval junction. Opacification of the lower lobes which is a combination of bilateral effusions and consolidation. Moderate cardiomegaly. Electronically Signed: Laisha Mcclain MD at 5:35 EST Tel , Service support ,
[2021-10-29 05:09] LABS: Absolute Lymphocyte Count 0.24 X10^3/uL (0.83-4.51); Basophil# 0.02 X10^3/uL; Basophil% 0.2 % (0-1); Eosinophil# 0.01 X10^3/uL; Eosinophils% 0.1 % (0-5); Hemoglobin 9.8 g/dL (12.0-15.0); Lymphocyte # 0.24 X10^3/ul (0.83-4.51); Lymphocyte % 2.7 % (19-41); Mean Corp Hgb Conc 29.7 g/dL (32-36); Mean Corpuscular Hgb 30.8 pg (27.0-32.0); Mean Corpuscular Volume 103.8 fL (81-99); Mean Platelet Vol. 9.4 fl (6.2-12.0); Monocyte# 0.51 X10^3/uL; Monocyte% 5.8 % (0-10); NRBC Flagged by Analyzer 0 % (0-5); Neutrophil % 90.5 % (47-70); POSITIVE DIFFERENTIAL YES; Platelet Count 298 K/mm3 (150-450); RBC Distribution Width CV 14.6 % (11.6-14.6); RBC Distribution Width SD 56.1 fl (35.1-43.9); Red Blood Count 3.18 M/mm3 (4.2-5.4); White Blood Count 8.8 K/mm3 (4.4-11.0)
[2021-10-29 05:28] LABS: BNP,B-Type NATRIURETIC PEPTIDE 217.6 pg/mL (0-100)
[2021-10-29 05:30] LABS: Anion Gap 8 (5-15); BUN 18 mg/dL (7-18); BUN/Creat Ratio 37.7 RATIO (10-20); Calcium,Total 9.1 mg/dL (8.5-10.1); Chloride 85 mmol/L (98-107); Creatinine, Serum 0.48 mg/dL (0.55-1.02); EST Glomerular Filtration Rate 134 mL/min (>60); Est Glom Filt Rate - Afr Amer 162 mL/min (>60); Estimated Creatinine Clearance 67.04 ml/min; Glucose 117 mg/dL (74-106); Potassium 3.6 mmol/L (3.5-5.1); Sodium Level 135 mmol/L (136-145); Troponin-I HS 19 pg/mL (3.0-54.0)
--- NOTE | 2021-10-29 05:32 | ED.RN ---
PT LIKES TO OPEN MOUTH BREATHE, NON-REBREATHER PLACED PTS O2 SATURATIONS FELL TO 84% WHEN SHE TRIED TO SLEEP. UPDATED FAMILY ON POC AND ANSWERED QUESTIONS IF ABLE.
[2021-10-29 05:34] LABS: Differential Indicated SCAN CRITERIA MET
[2021-10-29 05:35] LABS: Differential Comment SCANNED; Lactic Acid 0.3 mmol/L (0.4-1.9)
--- NOTE | 2021-10-29 06:47 | HP.PCM.HOS_ITS ---
HPI - General General Date of Admission: 10/29/21 Date of Service: 10/29/21 Chief Complaint: Shortness of breath HPI Narrative ABRAN SAENZ, is a 81 F who presents to the emergency room at [facility] after being transported from transitional care unit for evaluation of increased shortness of breath, she had been seen in the emergency room last night for chest pain, troponins were obtained and were negative and she was sent back to TCU. She had been seen by palliative care in September 2021 while she was hospitalized here before she went to the transitional care unit, family did not know anything about palliative care talking with the patient and did not know they were active with the patient. When the patient went back to the TCU last night from the ER, she was felt to be hospice appropriate, patient's family disa greed with this vehemently. Evaluation in the ER revealed the patient to require high flow nasal cannula oxygen to maintain her pulse ox, labs included a CBC which showed a white blood cell count of 8.8, hemoglobin was 9.8, chemistry profile showed a bicarb of 42, glucose was 117, and beta natruretic peptide was 217. Patient's chest x-ray showed opacification of the lower lobes which was felt to be combination bilateral effusions and consolidation. CTA of the chest done last night while the patient was seen in the emergency room showed moderate bilateral pleural effusions. Patient was afebrile in the emergency room. Patient will be admitted to PCU for acute on chronic hypoxic respiratory failure secondary to bilateral pleural effusions-I feel this is probably secondary to diastolic CHF, patient will be placed on IV Lasix, she will need to undergo a thoracentesis on Saturday. Family is okay with this treatment plan, they want the patient to be a full code at this time. [facility] Medical History Acute congestive heart failure Arthrogryposis Bilateral leg weakness Cervical cord myelomalacia Cervical stenosis of spinal canal COVID-19 Diastolic CHF Hearing loss, left Hearing loss, right HLD (hyperlipidemia) HTN (hypertension) Hypoxia Kidney disease Lumbar stenosis Morbid obesity with BMI of 40.0-44.9, adult Non-smoker Pneumonia S/p nephrectomy SBO (small bowel obstruction) Sepsis Shortness of breath Single kidney Wears hearing aid in both ears Home Medications aspirin 81 mg PO DAILY@0800 07/12/15 [History Last Taken 10/01/21] calcium carbonate-vitamin D3 1 tab PO DAILY 07/12/15 [History Last Taken 10/01/21] L.acidoph, paracasei,B. lactis 1 ea PO DAILY 03/22/19 [History Last Taken 10/01/21] furosemide 40 mg PO BID 03/22/19 [History Last Taken 10/01/21] Mineral Oil/Petrolatum,White [Eucerin] 1 applic TOPICAL BID #0 10/26/21 [Rx Last Taken Unknown] acetaminophen 1,000 mg PO Q6H PRN PRN #0 tab 10/26/21 [Rx Last Taken Unknown] gabapentin 100 mg PO TIDCM 30 Days #90 cap 10/26/21 [Rx Last Taken Unknown] menthol-zinc oxide [Calmoseptine] 1 applic TOPICAL BID #0 g 10/26/21 [Rx Last Taken Unknown] albuterol sulfate [Ventolin] 2.5 mg INHALATION Q2H PRN PRN 10/28/21 [History Last Taken Unknown] bisacodyl 10 mg PO QHS PRN 10/28/21 [History Last Taken Unknown] furosemide 40 mg PO BID 10/28/21 [History Last Taken Unknown] ipratropium-albuterol [DuoNeb] 3 ml INHALATION Q6H PRN 10/28/21 [History Last Taken Unknown] levofloxacin in D5W [Levaquin in 5 % dextrose] 750 mg IV Q24H 10/28/21 [History Last Taken Unknown] nitroglycerin 0.4 mg SUBLINGUAL Q5M PRN 10/28/21 [History Last Taken Unknown] nystatin [Mycostatin] 1 applic TOPICAL BID 10/28/21 [History Last Taken Unknown] potassium chloride 20 meq PO BID 10/28/21 [History Last Taken Unknown] senna-docusate sodium 1 tab PO BID 10/28/21 [History Last Taken Unknown] Allergy/AdvReac Type Severity Reaction Status Date / Time No Known Allergies Allergy Verified 10/28/21 17:00 Surgical History H/O section History of orthopedic surgery S/p nephrectomy Status post laparoscopy Social History household members: spouse Smoking Status: Never smoker alcohol intake: never substance use type: does not use ROS ROS Narrative Review of systems could not be determined from the patient due to her mental status. Vital Signs Vital Signs Vital Signs: 10/29/21 04:18 10/29/21 04:29 10/29/21 04:30 Temperature 97.8 F 97.8 F Temperature Source Oral Oral Pulse Rate 102 H 102 H Respiratory Rate 22 H 22 H Respiratory Effort Short of Breath Blood Pressure 100/55 L 100/55 L Blood Pressure Mean 70 70 Pulse Ox 97 97 Oxygen Delivery Method High Flow High Flow High Flow Oxygen Flow Rate (L/min) 15 15 15 10/29/21 05:34 10/29/21 06:24 Temperature 98.1 F Temperature Source Temporal Pulse Rate 99 103 H Respiratory Rate 27 H 29 H Respiratory Effort Blood Pressure 104/81 H 110/61 Blood Pressure Mean 88 77 Pulse Ox 95 95 Oxygen Delivery Method Non-Rebreather @ 15L/min Non-Rebreather @ 15L/min Oxygen Flow Rate (L/min) 10 Weight Weight: 93.1 kg Body Mass Index (BMI) 42.9 Physical Exam Const alert and no apparent distress Constitutional Narrative: Patient appears older than her stated age, patient has atrophic extremities. Patient is morbidly obese General Appearance: cooperative, well kempt and well developed Orientation / Consciousness: awake, oriented to person, oriented to place and oriented to time HEENT normocephalic, head/scalp atraumatic, hearing grossly normal bilaterally and moist oral mucous membranes Eyes PERRL, EOMs intact bilaterally and conjunctivae normal Neck nuchal rigidity, supple, no JVD, thyroid normal and no carotid bruits General: trachea midline Resp normal respiratory effort, no retractions, no use of accessory muscles and clear to auscultation bilaterally Auscultation: Negative for rales, rhonchi or wheezes Cardio regular rate, regular rhythm, S1 normal heart sound, S2 normal heart sound, no murmurs, no rub and no gallops GI normal to inspection, nondistended, normoactive bowel sounds, soft to palpation, non-tender and non-distended Extremity Extremity Narrative: Patient has atrophic extremities. Skin no rashes or lesions noted General Skin Exam: no breakdown Neuro CN's II-XII intact bilaterally, no focal motor deficits and no sensory deficits noted Sensorium / Orientation: awake and alert Speech: speech normal Psych thought process normal and affect normal Results Lab / Micro Data Result Diagrams: 10/29/21 04:57 10/29/21 04:57 Labs: Laboratory Results - last 24 hr 10/29/21 04:57: WBC 8.8, RBC 3.18 L, Hgb 9.8 L, Hct 33.0 L, MCV 103.8 H, MCH 30.8, MCHC 29.7 L, RDW Std Deviation 56.1 H, RDW Coeff of Sorin 14.6, Plt Count 298, MPV 9.4, Immature Gran % (Auto) 0.700, Neut % (Auto) 90.5 H, Lymph % (Auto) 2.7 L, [place] % (Auto) 5.8, Eos % (Auto) 0.1, Baso % (Auto) 0.2, Absolute Neuts (auto) 8.0 H, Absolute Lymphs (auto) 0.24 L, Nucleated RBC % 0, Differential Comment SCANNED 10/29/21 04:57: Sodium 135 L, Potassium 3.6, Chloride 85 L, Carbon Dioxide 42.0 H, Anion Gap 8, BUN 18, Creatinine 0.48 L, Estim Creat Clear Calc 67.04, Est GFR (MDRD) Af Amer 162, Est GFR (MDRD) Non-Af 134, BUN/Creatinine Ratio 37.7 H, Glucose 117 H, Calcium 9.1, Troponin I High Sens 19 10/29/21 04:57: Lactic Acid 0.3 L 10/29/21 04:57: B-Natriuretic Peptide 217.6 H Radiology Impression Chest X-Ray 10/29/21 04:52 IMPRESSION: Right-sided PICC line tip in the atriocaval junction. Opacification of the lower lobes which is a combination of bilateral effusions and consolidation. Moderate cardiomegaly. Electronically Signed: Laisha Mcclain MD at 5:35 EST Tel , Service support , Assessment & Plan Assessment/Plan (1) Shortness of breath: PLAN: 1. Acute on chronic hypoxic respiratory failure secondary to bilateral pleural effusions with atelectasis-patient will be admitted to PCU, she will be placed on IV Lasix, patient will need to undergo a thoracentesis on Saturday #2 acute on chronic diastolic congestive heart failure-patient will be treated with IV Lasix #3 generalized debility-patient's family wants the patient to be full code, patient cannot tell this examiner what she wants as far as CODE STATUS. #4 essential hypertension #5 pulmonary hypertension #6 morbid obesity #7 hyperlipidemia #8 generalized debility-PT and OT will be seeing the patient Charges/Coding Visit Charges Inpatient E&M: 98856 Init Hosp L3
--- NOTE | 2021-10-29 07:13 | PCS.PANDOC ---
PANDEMIC DOCUMENTATION INITIATED: Date: 06/26/2021 Time: 190
[2021-10-29] MEDS: Ondansetron 4 MG/2 ML Vial IV (08:21)
[2021-10-29] MEDS: 0.9% Saline Lock 10 ML Syringe IV ×3 (08:21→22:03)
[2021-10-29 09:11] LABS: Bedside Glucose 137 mg/dL (70-110)
[2021-10-29] MEDS: Furosemide 40 MG/4 ML Vial IV (09:24)
--- NOTE | 2021-10-29 10:35 | PCM.PN.HOSP ---
Documented by User: Nelia Liu, [employer] 10/29/21 10:56 Subjective Subjective Patient seen and examined. Patient lying in bed, tachypneic and lethargic however patient does arouse to painful stimuli. Patient SPO2 82 to 84% on nonrebreather, respiratory notified and initiated on BiPAP. ABG ordered however unable to obtain due to patient's significant edema. Objective Data Objective Data Vital Signs: Vital Signs Temp Pulse Resp BP Pulse Ox 97.7 F L 127 H 30 H 158/78 H 87 10/29/21 10:24 10/29/21 10:24 10/29/21 10:24 10/29/21 10:24 10/29/21 10:24 Oxygen Flow Rate (L/min) 15 Oxygen Delivery Method Bi-pap Weight: 182 lb 1.629 oz Body Mass Index (BMI) 38.0 Lab / Micro Data Result Diagrams: 10/29/21 04:57 10/29/21 04:57 Labs: Laboratory Results - last 24 hr 10/29/21 04:57: WBC 8.8, RBC 3.18 L, Hgb 9.8 L, Hct 33.0 L, MCV 103.8 H, MCH 30.8, MCHC 29.7 L, RDW Std Deviation 56.1 H, RDW Coeff of Sorin 14.6, Plt Count 298, MPV 9.4, Immature Gran % (Auto) 0.700, Neut % (Auto) 90.5 H, Lymph % (Auto) 2.7 L, Gregg % (Auto) 5.8, Eos % (Auto) 0.1, Baso % (Auto) 0.2, Absolute Neuts (auto) 8.0 H, Absolute Lymphs (auto) 0.24 L, Nucleated RBC % 0, Differential Comment SCANNED 10/29/21 04:57: Sodium 135 L, Potassium 3.6, Chloride 85 L, Carbon Dioxide 42.0 H, Anion Gap 8, BUN 18, Creatinine 0.48 L, Estim Creat Clear Calc 67.04, Est GFR (MDRD) Af Amer 162, Est GFR (MDRD) Non-Af 134, BUN/Creatinine Ratio 37.7 H, Glucose 117 H, Calcium 9.1, Troponin I High Sens 19 10/29/21 04:57: Lactic Acid 0.3 L 10/29/21 04:57: B-Natriuretic Peptide 217.6 H 10/29/21 08:59: POC Glucose 137 H Radiography Diagnostic Testing: Radiology Impression Chest X-Ray 10/29/21 04:52 IMPRESSION: Right-sided PICC line tip in the atriocaval junction. Opacification of the lower lobes which is a combination of bilateral effusions and consolidation. Moderate cardiomegaly. Electronically Signed: Laisha Mcclain MD at 5:35 EST Tel , Service support , Physical Exam Const Orientation / Consciousness: obtunded and lethargic HEENT head/scalp atraumatic Head and Scalp: normocephalic Eyes conjunctivae normal and no scleral icterus Neck full ROM and supple Resp Effort and Inspection: tachypneic and labored Auscultation: wheezes expiratory wheezes and right upper and diminished lung sounds bilateral throughout Cardio regular rate, regular rhythm, S1 normal heart sound and S2 normal heart sound GI normal to inspection, nondistended, normoactive bowel sounds, soft to palpation and non-tender Extremity normal to inspection General Extremity: edema bilateral upper extremity severe and lower extremity Details: severe Peripheral Pulses: Yes pulses 2+ throughout Skin no rashes or lesions noted and no wounds Skin Narrative: Distal bilateral upper extremities Neuro Sensorium / Orientation: lethargic and obtunded Assessment & Plan Assessment/Plan (1) Pneumonia: QUALIFIERS: Laterality: bilateral Lung location: unspecified part of lung Pneumonia type: due to unspecified organism Qualified Code(s): J18.9 - Pneumonia, unspecified organism (2) Acute dyspnea: (3) Hypoxia: (4) Bilateral pleural effusion: PLAN: Is a 81-year-old female who was originally admitted for bilateral pleural effusions and acute hypoxic respiratory failure. Patient was being treated for aspiration pneumonia on TCU. Plan for patient to go for thoracentesis on October 30, 2021. 1. Acute hypoxic respiratory failure secondary to bilateral pleural effusions and suspected aspiration pneumonia -Patient had been on nonrebreather satting well however this morning patient was noted to be hypoxic, tachypneic with shallow respirations. Patient was initiated on BiPAP. An ABG was ordered however was unable able to be obtained due to patient's severe edema to bilateral upper extremities. Approximately 1 hour after initiation of BiPAP was notified by Mai RN that patient was now unresponsive and subsequently hypoxic. Patient will be transferred to ICU for possible intubation. Updated Dr. Lovell regarding patient status and was in agreement with transfer to ICU. Case discussed with Dr. Zuleta instructor military science. -Will initiate patient on Unasyn as there was a suspicion of aspiration pneumonia when patient was on TCU. -As needed nebulizer treatments continued -Patient was given Lasix 40 mg IV however patient has had less than 100 mL of urine out. -Due to bilateral effusions patient was planned for thoracentesis on October 30, 2021 2. Acute on chronic diastolic congestive heart failure -Continue IV Lasix -Strict intake and output with daily weights 3. Generalized debility -Again with patient's family at bedside CODE STATUS, states they would want everything done and want patient to remain a full code -PT OT following DVT prophylaxis-subcu Lovenox This patient was seen by TORREY Valencia under the supervision of Dr. Lovell Documented by User: Dr. Felix Lovell MD 10/29/21 12:06 Objective Data Lab / Micro Data Result Diagrams: 10/29/21 04:57 10/29/21 04:57 Assessment & Plan Addt'l Comments This patient was seen in conjunction with TORREY Valencia . I have independently interviewed and examined the patient and reviewed pertinent historical, laboratory, and other data. Please refer to TORREY Valencia note for details of this patient's presentation, findings, and recommendations. I have reviewed TORREY Valencia note and concur with documented findings. In brief, patient is a 81-year-old lady with recent diagnosis of Covid who was undergoing therapy at transitional care unit was sent to the ED with progressive shortness of breath. Median studies obtained on admission demonstrated opacification of the lower lobes with combination of bilateral effusion and consolidation. Patient was admitted to monitored bed initially managed with noninvasive ventilation patient clinical condition continued to deteriorate. Patient was transferred to the intensive care unit consult placed to pulmonary medicine patient was subsequently intubated Physical Examination: HEENT: Webbed neck EYES; Anicteric, NECK; supple, normal thyroid, RESPIRATORY: Diminished to auscultation CARDIOVASCULAR: Regular S1 S2, GI: soft, normoactive bowel sounds, : No Renal angle tenderness; EXTREMITIES:edema, no clubbing, Assessment: 1. Acute hypoxic respiratory failure 2. Chronic hypoxic respiratory failure 3. Recent Covid infection 4. Obesity hypoventilation syndrome 5. Suspected obstructive sleep apnea 6. Chronic diastolic congestive heart failure 7. Dyslipidemia 8. Hypertension 9. Cervical and lumbar stenosis 10. Class II obesity with BMI of 38 11. Suspected Swan syndrome Recommendations: 1. I have discussed the results of my overview and impressions with the patient 2. Options for management were reviewed Advance planning; did discuss with the patient and family () regarding advanced directives as well as CODE STATUS. Did explain the various scenarios involved ( FULL CODE, DNR CCA, DNR CCA with no intubation, and DNR CC and what each meant) patient's mother was affected that patient was full code (patient was apparently under palliative care was on TCU unit). Order was placed. Time spent on discussion 18 minutes. Total time spent evaluating patient reviewing labs discussing with Providers as well as nursing staff; 55-minute Charges/Coding Multi Select Codes Hospitalists' Procedures Procedures: [id number] Prolonged Physician INPT and [id number] Advncd Care Plan 30 Min
[2021-10-29 10:41] LABS: Magnesium 2.2 mg/dL (1.6-2.6)
--- NOTE | 2021-10-29 10:42 | NURSING ---
Addendum entered by Sarah See 10/29/21 11:00: [id number] transported to ICU on bipap with this RN and RT Timothy. Original Note: report called to [facility]
--- NOTE | 2021-10-29 11:00 | CON.PCM.CC_ITS ---
Assessment & Plan Assessment/Plan (1) Respiratory failure: PLAN: RECOMMENDATIONS: 1. Continue patient on assist control and wean FiO2/PEEP for saturations greater than 90%. 2. Obtain and send sputum for culture. 3. Obtain arterial blood gas. 4. Check strep and urine Legionella antigens along with respiratory viral panel. 5. Continue empiric antimicrobials. 6. Diuresis as tolerated by hemodynamics and renal function. 7. Hold Lovenox tomorrow for potential thoracentesis. 8. Start appropriate GI prophylaxis. IMPRESSIONS: 1. Acute combined respiratory failure The patient initially presented to the emergency department from the TCU on October 29 with worsening shortness of breath and hypoxemia. Her respiratory status continued to deteriorate and she eventually became obtunded, requiring transfer to the intensive care unit and subsequent intubation. The etiology for her decompensation is likely multifactorial in nature with decompensated diastolic heart failure and potential pulmonary infectious etiology contributing . The patient also likely has a component of obesity hypoventilation and possible sleep apnea contributing as well. The patient has been initiated on antimicrobials. Plan to continue gentle diuresis as tolerated by hemodynamics and renal function. Wean FiO2/PEEP for saturations greater than 90%. Obtain arterial blood gas. I would recommend that her Lovenox therapy be held tomorrow morning for potential thoracentesis. 2. Encephalopathy Likely secondary to hypercapnia. However, I do not have a blood gas completed as of yet to confirm this assertion. Accordingly, will obtain blood gas. Continue supportive measures as noted above. 3. History of severe spinal stenosis/pulmonary hypertension/obesity/generalized debility Complicates care, management, recovery and prognosis. Continue home medications as indicated. Nutrition consultation will be obtained for tube feed recommendations. TIME: 38 minutes of critical care time, inclusive of procedures, was spent addressing the patient's acute combined respiratory failure, encephalopathy, review of all data and collaboration with the care team. HPI Consult Data Date of Consult: 10/29/21 HPI Narrative Reason for Consultation: Acute combined respiratory failure HPI Narrative: The patient is a 81-year-old female, with a history as outlined below, who presented to the emergency department on the morning of October 29 from the transitional care unit with worsening shortness of breath and hypoxemia. The patient recently had COVID-19 pneumonia in August. Her medical history is also significant for severe spinal stenosis, heart failure with preserved ejection fraction and pulmonary hypertension. On presentation to the emergency department, the patient was noted to be afe brile and hemodynamically stable. She was, however, hypoxemic and tachypneic. Initial laboratory evaluation revealed no evidence of a leukocytosis. D-dimer was noted to be 0.80. Chemistry profile was notable for a bicarbonate of 42 and normal renal function. CTA chest completed last night demonstrated no PE. Moderate bilateral pleural effusions were noted. The patient was initially admitted to the progressive care unit on scheduled IV diuretic therapy. However, over the course of the morning, the patient became less responsive and hypoxemic. An attempt to obtain an arterial blood gas was unsuccessful. Nevertheless, given that the patient had become obtunded, she was transferred to the medical intensive care unit, where she was emergently intubated. Intubation Indication: Respiratory failure Consent was obtained from: Family The patient was placed in the appropriate sniffing position. Preoxygenated sedation via [id number] was provided for a minimum of 3 minutes. The patient had continuous cardiac as well as pulse oximetry monitoring during the procedure. No procedural sedation was administered as the patient was obtunded. Direct laryngoscopy was then performed using a number 3 MAC blade, which revealed a grade 2 view. A 7.5 mm endotracheal tube was visualized advancing between the cords to the level of 23 cm at the lip. The stylette was then removed and discarded. Tube placement was confirmed by fogging in the tube along with equal and bilateral breath sounds. Colorimetric change was visualized on the CO2 meter. The cuff was then inflated and the tube secured using a commercially available device. A good pulse oximetry waveform was seen on the monitor throughout the procedure. A portable chest x-ray has been ordered to confirm appropriate placement. The patient tolerated the procedure well. [facility] Medical History Acute congestive heart failure Arthrogryposis Bilateral leg weakness Cervical cord myelomalacia Cervical stenosis of spinal canal COVID-19 Diastolic CHF Hearing loss, left Hearing loss, right HLD (hyperlipidemia) HTN (hypertension) Hypoxia Kidney disease Lumbar stenosis Morbid obesity with BMI of 40.0-44.9, adult Non-smoker Pneumonia S/p nephrectomy SBO (small bowel obstruction) Sepsis Shortness of breath Single kidney Wears hearing aid in both ears Home Medications aspirin 81 mg PO DAILY@0800 07/12/15 [History Last Taken 10/01/21] calcium carbonate-vitamin D3 1 tab PO DAILY 07/12/15 [History Last Taken 10/01/21] L.acidoph, paracasei,B. lactis 1 ea PO DAILY 03/22/19 [History Last Taken 10/01/21] furosemide 40 mg PO BID 03/22/19 [History Last Taken 10/01/21] Mineral Oil/Petrolatum,White [Eucerin] 1 applic TOPICAL BID #0 10/26/21 [Rx Last Taken Unknown] acetaminophen 1,000 mg PO Q6H PRN PRN #0 tab 10/26/21 [Rx Last Taken Unknown] gabapentin 100 mg PO TIDCM 30 Days #90 cap 10/26/21 [Rx Last Taken Unknown] menthol-zinc oxide [Calmoseptine] 1 applic TOPICAL BID #0 g 10/26/21 [Rx Last Taken Unknown] albuterol sulfate [Ventolin] 2.5 mg INHALATION Q2H PRN PRN 10/28/21 [History Last Taken Unknown] bisacodyl 10 mg PO QHS PRN 10/28/21 [History Last Taken Unknown] ipratropium-albuterol [DuoNeb] 3 ml INHALATION Q6H PRN 10/28/21 [History Last Taken Unknown] levofloxacin in D5W [Levaquin in 5 % dextrose] 750 mg IV Q24H 10/28/21 [History Last Taken Unknown] nitroglycerin 0.4 mg SUBLINGUAL Q5M PRN 10/28/21 [History Last Taken Unknown] nystatin [Mycostatin] 1 applic TOPICAL BID 10/28/21 [History Last Taken Unknown] potassium chloride 20 meq PO BID 10/28/21 [History Last Taken Unknown] senna-docusate sodium 1 tab PO BID 10/28/21 [History Last Taken Unknown] lisinopril [Zestril] 5 mg PO DAILY 10/29/21 [History Last Taken Unknown] Allergy/AdvReac Type Severity Reaction Status Date / Time No Known Allergies Allergy Verified 10/28/21 17:00 Surgical History H/O section History of orthopedic surgery S/p nephrectomy Status post laparoscopy Social History household members: spouse Smoking Status: Never smoker alcohol intake: never substance use type: does not use ROS Review of Systems ROS Unobtainable: due to endotracheal tube and due to mental status Physical Exam Const Constitutional Narrative: On arrival to the ICU, the patient was obtunded and nonresponsive to verbal or painful stimuli. She is morbidly obese. HEENT normocephalic and head/scalp atraumatic Mouth: endotracheal tube in place and OG tube in place Eyes PERRL and EOMs intact bilaterally Neck supple Chest inspection of chest normal Resp Resp Narrative: Poor patient effort. Effort and Inspection: tachypneic Auscultation: diminished lung sounds Cardio S1 normal heart sound and S2 normal heart sound Rate: tachycardic GI normal to inspection, nondistended, normoactive bowel sounds Extremity General Extremity: edema bilateral lower extremity Skin no rashes or lesions noted Neuro Neuro Narrative: Obtunded. Nonresponsive. Lab / Micro Data Result Diagrams: 10/29/21 04:57 10/29/21 04:57 Labs: Laboratory Results - last 24 hr 10/29/21 04:57: WBC 8.8, RBC 3.18 L, Hgb 9.8 L, Hct 33.0 L, MCV 103.8 H, MCH 30.8, MCHC 29.7 L, RDW Std Deviation 56.1 H, RDW Coeff of Sorin 14.6, Plt Count 298, MPV 9.4, Immature Gran % (Auto) 0.700, Neut % (Auto) 90.5 H, Lymph % (Auto) 2.7 L, Valencia % (Auto) 5.8, Eos % (Auto) 0.1, Baso % (Auto) 0.2, Absolute Neuts (auto) 8.0 H, Absolute Lymphs (auto) 0.24 L, Nucleated RBC % 0, Differential Comment SCANNED 10/29/21 04:57: Sodium 135 L, Potassium 3.6, Chloride 85 L, Carbon Dioxide 42.0 H, Anion Gap 8, BUN 18, Creatinine 0.48 L, Estim Creat Clear Calc 67.04, Est GFR (MDRD) Af Amer 162, Est GFR (MDRD) Non-Af 134, BUN/Creatinine Ratio 37.7 H, Glucose 117 H, Calcium 9.1, Troponin I High Sens 19 10/29/21 04:57: Lactic Acid 0.3 L 10/29/21 04:57: B-Natriuretic Peptide 217.6 H 10/29/21 04:57: Magnesium 2.2 10/29/21 08:59: POC Glucose 137 H Radiology Impression Chest X-Ray 10/29/21 04:52 IMPRESSION: Right-sided PICC line tip in the atriocaval junction. Opacification of the lower lobes which is a combination of bilateral effusions and consolidation. Moderate cardiomegaly. Electronically Signed: Laisha Mcclain MD at 5:35 EST Tel , Service support , Charges/Coding Procedures Hospitalists Procedures: [id number] Critial Care 1st Hr
--- NOTE | 2021-10-29 11:05 | NURSING ---
Dr Zuleta in the room at this time to intubate patient. Patient placed supine and pulled to the head of the bed. Patient was obtunded and did not require any sedation prior to intubation. Patient was intubated successfully at 11:15, with a size 7.5 ETT, 24@lip PEEP of 10, FIO2 of 100% Tidal volume of 300 rate of 14.
[2021-10-29] MEDS: Propofol 10MG/Ml 1,000 MG/100 ML Bottle 5 MG CONT INF (11:15)
--- NOTE | 2021-10-29 11:16 | RAD_ITS ---
We are attempting to reach an attending provider to discuss findings. An addendum with communication details will be sent when the communication is complete. STUDY: X-RAY CHEST REASON FOR EXAM: Female, 81 years old. Line placement TECHNIQUE: Single AP portable view of the chest. COMPARISON: Earlier today FINDINGS: Since the previous study, patient has been intubated, tip is just above the eliseo and should be retracted 2 to 3 cm. NG tube tip not seen but is in the body the stomach. Stable appearance of EKG leads and a left-sided PICC line. Lungs are expanded, previously noted interstitial and airspace opacifications in both lung tran have improved but not completely resolved. No demonstrated effusion. Stable cardiomegaly. Normal mediastinum and fouzia. Normal visualized pulmonary arteries. Normal visualized aortic arch and descending thoracic aorta. There are diffuse degenerative changes of the visualized thoracic spine. There is degenerative osteoarthritis of the bilateral shoulders. There is no demonstrated abnormality of the visualized soft tissue structures of the upper abdomen. RAD/Chest 1 View (Portable) IMPRESSION: Patient has been intubated since the previous study, tip is either at or just above the eliseo and should be retracted 2 to 3 cm. Better inspiratory effort on current study. Previously noted interstitial and airspace opacifications in both lung tran have improved. Continued follow-up recommended to assure complete resolution Stable cardiomegaly Electronically Signed: Christopher Mcleod MD at 12:42 EST , Service support ,
[2021-10-29 13:08] LABS: CPK Total, Creatine Kinase 20 U/L (26-192); Triglycerides 57 mg/dL
[2021-10-29 13:16] LABS: Allen Test Positive; Base Excess 11 mmol/L (-2 to +2); Blood Gas Specimen Type ART; FI02 70; Mode AC; O2 Delivery Device Adult Vent; PEEP 5; PO2 75 mmHG (75-100); RR 14; SITE L Radial; SO2 92 % (95-99); Total Carbon Dioxide 41 mmol/L; Vt 300; pCO2 83.9 mmHg (35-45); pH 7.27 (7.35-7.45)
--- NOTE | 2021-10-29 14:08 | CPS ---
Dr. Zuleta was notified
[2021-10-29] MEDS: Furosemide 20 MG/2 ML VIAL IV ×2 (15:13→22:03)
[2021-10-29] MEDS: Ipratropium/Albuterol Sulfate 3 ML AMPUL.NEB INHALATION (17:49)
[2021-10-29] MEDS: Chlorhexidine 15 ML PO (22:00)
[2021-10-30] VITALS (35 sets, daily range): BP systolic 91–117; BP diastolic 46–87; PULSE 2–116; RESP 16–40; TEMP 36.6–37.4; O2SAT 93–100
[2021-10-30 00:16] LABS: Bedside Glucose 77 mg/dL (70-110)
[2021-10-30] MEDS: Ipratropium/Albuterol Sulfate 3 ML AMPUL.NEB INHALATION ×4 (01:41→19:22)
[2021-10-30] MEDS: CHLORHEXIDINE GLUC 2% CLOTH 1 EACH TOWELETTE TOPICAL (01:50)
[2021-10-30] MEDS: TITRATION PARAMETER CHANGE 1 EACH IV (02:15)
[2021-10-30 04:23] LABS: Absolute Lymphocyte Count 0.73 X10^3/uL (0.83-4.51); Absolute Neutrophil Count 10.6 X10^3/uL (2.0-7.7); Basophil# 0.02 X10^3/uL; Basophil% 0.2 % (0-1); Hematocrit 29.7 % (37-47); Hemoglobin 9.4 g/dL (12.0-15.0); Lymphocyte # 0.73 X10^3/ul (0.83-4.51); Lymphocyte % 5.7 % (19-41); Mean Corp Hgb Conc 31.6 g/dL (32-36); Mean Corpuscular Hgb 31.3 pg (27.0-32.0); Mean Platelet Vol. 10.3 fl (6.2-12.0); Monocyte# 1.43 X10^3/uL; Monocyte% 11.1 % (0-10); NRBC Flagged by Analyzer 0 % (0-5); Neutrophil # 10.62 X10^3/uL (2.7-7.7); Neutrophil % 82.5 % (47-70); Platelet Count 341 K/mm3 (150-450); RBC Distribution Width CV 14.8 % (11.6-14.6); RBC Distribution Width SD 53.1 fl (35.1-43.9); White Blood Count 12.9 K/mm3 (4.4-11.0)
[2021-10-30 04:49] LABS: Anion Gap 15 (5-15); BUN 28 mg/dL (7-18); BUN/Creat Ratio 30.8 RATIO (10-20); Calcium,Total 9.2 mg/dL (8.5-10.1); Chloride 88 mmol/L (98-107); Creatinine, Serum 0.91 mg/dL (0.55-1.02); EST Glomerular Filtration Rate 64 mL/min (>60); Est Glom Filt Rate - Afr Amer 77 mL/min (>60); Glucose 77 mg/dL (74-106); Potassium 3.5 mmol/L (3.5-5.1); Sodium Level 138 mmol/L (136-145)
[2021-10-30] MEDS: Furosemide 20 MG/2 ML VIAL IV ×3 (05:34→21:43)
--- NOTE | 2021-10-30 08:28 | PN.CC_ITS ---
Assessment & Plan Assessment/Plan (1) Respiratory failure: PLAN: RECOMMENDATIONS: 1. Continue patient on assist control and wean FiO2/PEEP for saturations greater than 90%. 2. Continue empiric antibiotics pending culture 3. Spontaneous awakening and breathing trials per protocol 4. Diuresis as tolerated by hemodynamics and renal function 5. Await results of thoracic ultrasound. Possible thoracentesis 6. Initiate tube feeds following evaluation for thoracentesis 7. Reinitiate Lovenox following evaluation for thoracentesis. 8. Continue GI prophylaxis. IMPRESSIONS: 1. Acute combined respiratory failure The patient initially presented to the emergency department from the TCU on October 29 with worsening shortness of breath and hypoxemia. Her respiratory status continued to deteriorate and she eventually became obtunded, requiring transfer to the intensive care unit and subsequent intubation. The etiology for her decompensation is likely multifactorial in nature with decompensated diastolic heart failure and potential pulmonary infectious etiology contributing. The patient also likely has a component of obesity hypoventilation and possible sleep apnea contributing as well. The patient has been initiated on antimicrobials until culture negative. Plan to continue gentle diuresis as tolerated by hemodynamics and renal function. Wean FiO2/PEEP for saturations greater than 90%. Unclear if thoracentesis is an option given marginal accumulation on presentation CT. 2. Metabolic encephalopathy Likely secondary to hypercapnia. However, I do not have a blood gas co mpleted as of yet to confirm this assertion. Accordingly, will obtain blood gas. Continue supportive measures as noted above. 3. History of severe spinal stenosis/pulmonary hyperten afshan/obesity/generalized debility Complicates care, management, recovery and prognosis. Continue home medications as indicated. Nutrition consultation will be obtained for tube feed recommendations. Patient appears to have a syndromic appearance TIME: 38 minutes of critical care time, inclusive of procedures, was spent addressing the patient's acute combined respiratory failure, encephalopathy, review of all data and collaboration with the care team. Subjective Subjective Patient did okay overnight. Patient was noted to have decreased urine output. Patient did have a spontaneous awakening trial this morning, but failed spontaneous breathing trial. Patient is interactive and off sedation at this time. Objective Data Objective Data Vital Signs: Vital Signs Temp Pulse Resp BP Pulse Ox 37.4 C H 99 18 106/58 L 99 10/30/21 04:00 10/30/21 07:03 10/30/21 07:03 10/30/21 07:00 10/30/21 07:03 Oxygen Flow Rate (L/min) 15 Oxygen Delivery Method Mechanical Ventilator Weight: 82.9 kg Body Mass Index (BMI) 38.0 Intake & Output: Intake and Output for Last 24 Hours 10/28/21 10/29/21 10/30/21 23:59 23:59 23:59 Intake Total 327.50 / 337.50 150 / 150 Output Total 200 / 200 150 / 150 Balance 127.50 / 137.50 0 / 0 Lab / Micro Data Result Diagrams: 10/30/21 03:50 10/30/21 03:50 Labs: Laboratory Results - last 24 hr 10/29/21 04:57: Magnesium 2.2 10/29/21 04:57: Total Creatine Kinase 20 L, Triglycerides 57 10/29/21 08:59: POC Glucose 137 H 10/30/21 00:10: POC Glucose 77 10/30/21 03:50: Sodium 138, Potassium 3.5, Chloride 88 L, Carbon Dioxide 35.0 H, Anion Gap 15, BUN 28 H, Creatinine 0.91, Estim Creat Clear Calc 65.60, Est GFR (MDRD) Af Amer 77, Est GFR (MDRD) Non-Af 64, BUN/Creatinine Ratio 30.8 H, Glucose 77, Calcium 9.2 10/30/21 03:50: WBC 12.9 H, RBC 3.00 L, Hgb 9.4 L, Hct 29.7 L, MCV 99.0, MCH 31.3, MCHC 31.6 L D, RDW Std Deviation 53.1 H, RDW Coeff of Sorin 14.8 H, Plt Count 341, MPV 10.3, Immature Gran % (Auto) 0.500, Neut % (Auto) 82.5 H, Lymph % (Auto) 5.7 L, [place] % (Auto) 11.1 H, Eos % (Auto) 0.0, Baso % (Auto) 0.2, Absolute Neuts (auto) 10.6 H, Absolute Lymphs (auto) 0.73 L, Nucleated RBC % 0 Micro: Microbiology 10/29/21 17:20 Urine Catheter - Catheter Legionella Antigen - Final 10/29/21 17:20 Urine Catheter - Catheter Streptococcus pneumoniae Antigen (M - Final 10/29/21 11:30 Mucosa - Nose Respiratory Panel (PCR) - Final ABG Data ABG results: ABG 10/29/21 13:06 Specimen Type ART Sample Site L Radial pH 7.27 L Bicarbonate Actual 38.0 H Total CO2 41 Base Excess 11 H O2 Saturation 92 L O2 % 70 ABG pCO2 83.9 H* ABG pO2 75 Ivan Test Positive Respiration Rate 14 O2 Delivery Device Adult Vent Vent Mode AC Tidal Volume 300 POC PEEP 5 Crit Call To/Read Back Yes Radiography Diagnostic Testing: Radiology Impression Chest X-Ray 10/29/21 11:16 IMPRESSION: Patient has been intubated since the previous study, tip is either at or just above the eliseo and should be retracted 2 to 3 cm. Better inspiratory effort on current study. Previously noted interstitial and airspace opacifications in both lung tran have improved. Continued follow-up recommended to assure complete resolution Stable cardiomegaly Electronically Signed: Christopher Mcleod MD at 12:42 EST , Service support , ADDENDUM: 10/29/21 1300 IMPRESSION: Patient has been intubated since the previous study, tip is either at or just above the eliseo and should be retracted 2 to 3 cm. Better inspiratory effort on current study. Previously noted interstitial and airspace opacifications in both lung tran have improved. Continued follow-up recommended to assure complete resolution Stable cardiomegaly N.B. : The above Results were Read Back by Christopher Mcleod MD to Kacie Morley RN, and understanding confirmed on 10/29/2021 12:53:13 (ET). Electronically Signed: Christopher Mcleod MD at 12:42 EST , Service support , Physical Exam Const Constitutional Narrative: Morbidly obese. Good vent synchrony. No sedation at this time. HEENT normocephalic and head/scalp atraumatic Mouth: endotracheal tube in place and OG tube in place Eyes PERRL and EOMs intact bilaterally Neck supple Chest inspection of chest normal Resp Effort and Inspection: mechanically ventilated Auscultation: diminished lung sounds; Negative for rales, rhonchi or wheezes Cardio S1 normal heart sound and S2 normal heart sound Rate: tachycardic GI normal to inspection, nondistended, normoactive bowel sounds Extremity General Extremity: edema bilateral lower extremity Skin no rashes or lesions noted Neuro CN's II-XII intact bilaterally, moves all extremities and no focal motor deficits Charges/Coding Procedures Hospitalists Procedures: 29253 Critial Care 1st Hr
[2021-10-30] MEDS: Enoxaparin 40 MG/0.4 ML Syringe SC (11:04)
[2021-10-30] MEDS: Potassium Chloride Oral Tablet 20 MEQ PO ×2 (11:05→17:21)
[2021-10-30] MEDS: Chlorhexidine 15 ML PO ×2 (11:07→21:44)
[2021-10-30] MEDS: Vital AF 1.2 Cal Liquid 1,000 ML 55 ML GT (11:13)
--- NOTE | 2021-10-30 11:23 | US_ITS ---
STUDY: SUPERFICIAL ULTRASOUND - PLEURAL SPACE. REASON FOR EXAM: Female, 81 years old. Pleural effusion TECHNIQUE: A superficial ultrasound was performed with real-time and static marinelli-scale imaging. COMPARISON: None. FINDINGS: Assessment for pleural effusion was obtained. No significant pleural effusion is seen. US/Chest IMPRESSION: No significant pleural effusion is seen. Electronically Signed: Angel Kyle MD at 13:08 EST , Service support ,
--- NOTE | 2021-10-30 11:28 | CASEMGMT ---
Social Work SW participated in ICU rounds this morning, pt's present. In rounds does state plan will be for pt to return to TCU. SW spoke w/Amber in TCU, pt can return to TCU at discharge. SW spoke w/SW Ani in TCU, she states plan had been for pt to return home on the with palliative care and home healthcare. SW spoke w/ again, let him know that it is anticipated pt will be able to return to TCU at discharge. states understanding. SW reviewed Medicare benefit for SNF, explained when pt returns the benefit picks up on the day it left off, it does not start over. states understanding. also asked about DME, SW explained that it will not be ordered until pt goes home. states understanding. Plan: TCU when pt is medically ready PRICILA Hurt
--- NOTE | 2021-10-30 12:45 | PCM.PN.HOSP ---
Subjective Subjective Tolerating 30% Fio2. failed SBT. Objective Data Objective Data Vital Signs: Vital Signs Temp Pulse Resp BP Pulse Ox 37.4 C H 96 16 106/58 L 99 10/30/21 04:00 10/30/21 10:18 10/30/21 10:18 10/30/21 07:00 10/30/21 10:18 Oxygen Flow Rate (L/min) 15 Oxygen Delivery Method Mechanical Ventilator Weight: 82.9 kg Body Mass Index (BMI) 38.0 Intake & Output: Intake and Output for Last 24 Hours 10/28/21 10/29/21 10/30/21 23:59 23:59 23:59 Intake Total 327.50 / 337.50 150 / 150 Output Total 200 / 200 150 / 150 Balance 127.50 / 137.50 0 / 0 Lab / Micro Data Result Diagrams: 10/30/21 03:50 10/30/21 03:50 Labs: Laboratory Results - last 24 hr 10/29/21 04:57: Total Creatine Kinase 20 L, Triglycerides 57 10/30/21 00:10: POC Glucose 77 10/30/21 03:50: Sodium 138, Potassium 3.5, Chloride 88 L, Carbon Dioxide 35.0 H, Anion Gap 15, BUN 28 H, Creatinine 0.91, Estim Creat Clear Calc 65.60, Est GFR (MDRD) Af Amer 77, Est GFR (MDRD) Non-Af 64, BUN/Creatinine Ratio 30.8 H, Glucose 77, Calcium 9.2 10/30/21 03:50: WBC 12.9 H, RBC 3.00 L, Hgb 9.4 L, Hct 29.7 L, MCV 99.0, MCH 31.3, MCHC 31.6 L D, RDW Std Deviation 53.1 H, RDW Coeff of Sorin 14.8 H, Plt Count 341, MPV 10.3, Immature Gran % (Auto) 0.500, Neut % (Auto) 82.5 H, Lymph % (Auto) 5.7 L, [place] % (Auto) 11.1 H, Eos % (Auto) 0.0, Baso % (Auto) 0.2, Absolute Neuts (auto) 10.6 H, Absolute Lymphs (auto) 0.73 L, Nucleated RBC % 0 Micro: Microbiology 10/29/21 11:30 Sputum, Induced/Lukens Respiratory Culture - Preliminary 10/29/21 17:20 Urine Catheter - Catheter Legionella Antigen - Final 10/29/21 17:20 Urine Catheter - Catheter Streptococcus pneumoniae Antigen (M - Final 10/29/21 11:30 Mucosa - Nose Respiratory Panel (PCR) - Final ABG Data ABG results: ABG 10/29/21 13:06 Specimen Type ART Sample Site L Radial pH 7.27 L Bicarbonate Actual 38.0 H Total CO2 41 Base Excess 11 H O2 Saturation 92 L O2 % 70 ABG pCO2 83.9 H* ABG pO2 75 Ivan Test Positive Respiration Rate 14 O2 Delivery Device Adult Vent Vent Mode AC Tidal Volume 300 POC PEEP 5 Crit Call To/Read Back Yes Radiography Diagnostic Testing: Radiology Impression Chest X-Ray 10/29/21 11:16 IMPRESSION: Patient has been intubated since the previous study, tip is either at or just above the eliseo and should be retracted 2 to 3 cm. Better inspiratory effort on current study. Previously noted interstitial and airspace opacifications in both lung tran have improved. Continued follow-up recommended to assure complete resolution Stable cardiomegaly Electronically Signed: Christopher Mcleod MD at 12:42 EST , Service support , ADDENDUM: 10/29/21 1300 IMPRESSION: Patient has been intubated since the previous study, tip is either at or just above the eliseo and should be retracted 2 to 3 cm. Better inspiratory effort on current study. Previously noted interstitial and airspace opacifications in both lung tran have improved. Continued follow-up recommended to assure complete resolution Stable cardiomegaly N.B. : The above Results were Read Back by Christopher Mcleod MD to Kacie Morley RN, and understanding confirmed on 10/29/2021 12:53:13 (ET). Electronically Signed: Christopher Mcleod MD at 12:42 EST , Service support , Physical Exam Const alert Constitutional Narrative: intubated. Resp normal respiratory effort and no retractions Cardio regular rate, regular rhythm, S1 normal heart sound and S2 normal heart sound GI normal to inspection, nondistended, normoactive bowel sounds, soft to palpation, non-tender and non-distended Extremity Extremity Narrative: marked deformities of digits. Assessment & Plan Assessment/Plan (1) Acute respiratory failure with hypoxia and hypercapnia: (2) Bilateral pleural effusion: (3) Acute HFrEF (heart failure with reduced ejection fraction): PLAN: 1. acute hypoxic and hypercapnic respiratory failure multifactorial wean oxygen as able on empiric amp/sulb strep , legionella negative. Cx pending. 2. Pleural effusion suspect transudative thoracentesis ordered 3. Acute HFrEF EF 60% on IV furosemide 4. Metabolic encephalopathy resolved 2/2 hypercapnia 5. VTE prophylaxis: LMWH DW her at bedside. Charges/Coding Visit Charges Inpatient E&M: 36221 Subs Hosp L2
[2021-10-30 13:36] LABS: Bedside Glucose 82 mg/dL (70-110)
[2021-10-30 14:30] LABS: ALB/GLOB Ratio 0.7 RATIO (0.9-2.4); Globulin 3.5 g/dL (2.2-4.2); LDH 226 U/L (84-246); Protein, Total 5.9 g/dL (6.4-8.2)
--- NOTE | 2021-10-30 15:35 | CHAPLAIN ---
Type of Pastoral Visit ___ Initial Visit _x__ Follow-up Visit ___ On-call Visit ___ General Patient Visit ___ Spiritual Assessment ___ Family Conference ___ Bereavement ___ Rapid Response ___ Code Blue ___ Other (describe below) Pastoral Care Referral From ___ Patient _x__ Family ___ Nurse ___ Physician ___ Childcare Center Director ___ Inspector Publications ___ Other (describe below) Sacrament/Intervention ___ Active listening ___ Anointing ___ Protestant ___ Bereavement ___ Communion ___ Dulce exploration ___ ___ Life review _x__ Prayer ___ Reconciliation ___ Sacrament of Sick _x__ Supportive presence ___ Wedding ___ Other (describe below) Pastoral Comments spouse at bedside, patient did open her eyes and nod her head in response to questions and offer of prayer; prayer given and pt whispers Amen; family appreciative
--- NOTE | 2021-10-30 16:42 | CASEMGMT ---
DOLLY CISNEROS chart review: Patient admitted 10/02/21 through 10/04/21 for weakness and numbness of bilateral lower extremities with history of spinal stenosis, discharged to TCU for ongoing rehab. Readmitted 10/29/21 for acute on chronic hypoxic respiratory failure. ER visit on 10/28/21, dx chest pain, pneumonia and acute dyspnea. Patient returned to ER for c/o increased shortness of breath and admitted to ICU. Patient intubated 10/29. Plan to return to TCU following hospital discharge. DOLLY CISNEROS will continue to follow this patient and plan for safe discharge.
[2021-10-30 17:40] LABS: Bedside Glucose 117 mg/dL (70-110)
[2021-10-30] MEDS: 0.9% Saline Lock 10 ML Syringe IV (21:43)
[2021-10-30 23:51] LABS: Bedside Glucose 134 mg/dL (70-110)
[2021-10-31] VITALS (35 sets, daily range): BP systolic 83–123; BP diastolic 43–99; PULSE 93–160; RESP 16–30; TEMP 36.1–37; O2SAT 83–100
[2021-10-31] MEDS: Ipratropium/Albuterol Sulfate 3 ML AMPUL.NEB INHALATION ×3 (01:53→20:31)
[2021-10-31] MEDS: CHLORHEXIDINE GLUC 2% CLOTH 1 EACH TOWELETTE TOPICAL (03:00)
[2021-10-31] MEDS: TITRATION PARAMETER CHANGE 1 EACH IV (03:50)
[2021-10-31 04:14] LABS: Absolute Lymphocyte Count 0.61 X10^3/uL (0.83-4.51); Absolute Neutrophil Count 9.8 X10^3/uL (2.0-7.7); Basophil# 0.02 X10^3/uL; Basophil% 0.2 % (0-1); Eosinophil# 0.04 X10^3/uL; Eosinophils% 0.4 % (0-5); Hematocrit 27.7 % (37-47); Hemoglobin 8.8 g/dL (12.0-15.0); Lymphocyte # 0.61 X10^3/ul (0.83-4.51); Lymphocyte % 5.4 % (19-41); Mean Corp Hgb Conc 31.8 g/dL (32-36); Mean Corpuscular Hgb 30.7 pg (27.0-32.0); Mean Corpuscular Volume 96.5 fL (81-99); Mean Platelet Vol. 9.9 fl (6.2-12.0); Monocyte# 0.67 X10^3/uL; NRBC Flagged by Analyzer 0 % (0-5); Neutrophil # 9.79 X10^3/uL (2.7-7.7); Neutrophil % 87.3 % (47-70); Platelet Count 295 K/mm3 (150-450); RBC Distribution Width CV 15.6 % (11.6-14.6); RBC Distribution Width SD 55.2 fl (35.1-43.9); Red Blood Count 2.87 M/mm3 (4.2-5.4); White Blood Count 11.2 K/mm3 (4.4-11.0)
[2021-10-31 04:36] LABS: ALB/GLOB Ratio 0.6 RATIO (0.9-2.4); AST(SGOT) 23 U/L (15-37); Alanine Aminotransfer ALT/SGPT 17 U/L (13-56); Albumin, Serum 2.2 g/dL (3.2-5.0); Alkaline Phosphatase 79 U/L (45-117); Anion Gap 11 (5-15); BUN 36 mg/dL (7-18); BUN/Creat Ratio 26.9 RATIO (10-20); Calcium,Total 8.8 mg/dL (8.5-10.1); Chloride 89 mmol/L (98-107); Creatinine, Serum 1.34 mg/dL (0.55-1.02); EST Glomerular Filtration Rate 41 mL/min (>60); Est Glom Filt Rate - Afr Amer 49 mL/min (>60); Estimated Creatinine Clearance 45.36 ml/min; Globulin 3.6 g/dL (2.2-4.2); Glucose 136 mg/dL (74-106); Potassium 3.6 mmol/L (3.5-5.1); Protein, Total 5.8 g/dL (6.4-8.2); Sodium Level 138 mmol/L (136-145)
[2021-10-31 06:26] LABS: Bedside Glucose 157 mg/dL (70-110)
[2021-10-31] MEDS: Furosemide 40 MG/4 ML Vial IV ×2 (06:34→13:19)
--- NOTE | 2021-10-31 07:07 | PN.CC_ITS ---
Assessment & Plan Assessment/Plan (1) Respiratory failure: PLAN: RECOMMENDATIONS: 1. Continue patient on assist control and wean FiO2/PEEP for saturations greater than 90%. 2. Continue empiric antibiotics pending culture 3. Spontaneous awakening and breathing trials per protocol. Possible extubation later today 4. Increase diuresis as tolerated by hemodynamics and renal function 5. Continue GI prophylaxis. IMPRESSIONS: 1. Acute combined respiratory failure The patient initially presented to the emergency department from the TCU on October 29 with worsening shortness of breath and hypoxemia. Her respiratory status continued to deteriorate and she eventually became obtunded, requiring transfer to the intensive care unit and subsequent intubation. The etiology for her decompensation is likely multifactorial in nature with decompensated diastolic heart failure and potential pulmonary infectious etiology contributing. The patient also likely has a component of obesity hypoventilation and possible sleep apnea contributing as well. The patient has been initiated on antimicrobials until culture negative. Patient does not appear to be responding to 20 mg of Lasix. This will be increased to 40 mg. Wean FiO2 /PEEP for saturations greater than 90%. Patient currently on a spontaneous breathing trial. Will need an ABG at the end given small tidal volumes. 2. Metabolic encephalopathy Resolved. Likely secondary to hypercapnia. Continue supportive measures as noted above. 3. History of severe spinal stenosis/pulmonary hypertension/obesity/generalized debility Complicates care, management, recovery and prognosis. Continue home medications as indicated. Nutrition consultation will be obtained for tube feed recommendations. Patient appears to have a syndromic appearance Addendum 10:34 AM: Called to the patient's room. Patient had developed SVT around 9 AM. This was confirmed by EKG. Patient was attempted on Valsalva maneuvers with no change. At 10 AM, there was some concern that this had persisted. Patient was given 6 mg of adenosine showing normal sinus rhythm. Patient has been receiving diuresis and was extubated today. Will consult cardiology for recommendations. Likely okay to use a beta-malina from my perspective, but defer to cardiology as patient is being treated as acute CHF. TIME: 50 minutes of critical care time, inclusive of procedures, was spent addressing the patient's acute combined respiratory failure, encephalopathy, review of all data and collaboration with the care team. Subjective Subjective Patient did well overnight. Patient remains off of all sedation and tolerating it well. Patient with little urine output overnight despite Lasix therapy. Patient has been tolerating tube feeds. This morning, patient's spontaneous anuel thing trial was terminated secondary to low tidal volumes, but patient appeared to be comfortable. This was reinitiated after my arrival and patient denies any dyspnea on the trial. Objective Data Objective Data Vital Signs: Vital Signs Temp Pulse Resp BP Pulse Ox 36.8 C 108 H 24 H 122/62 H 95 10/31/21 04:00 10/31/21 06:15 10/31/21 06:15 10/31/21 06:00 10/31/21 06:15 Oxygen Flow Rate (L/min) 15 Oxygen Delivery Method CPAP Weight: 84.4 kg Body Mass Index (BMI) 38.0 Intake & Output: Intake and Output for Last 24 Hours 10/29/21 10/30/21 10/31/21 23:59 23:59 23:59 Intake Total 327.50 / 337.50 1076 / 1366 630 / 630 Output Total 200 / 200 350 / 350 100 / 100 Balance 127.50 / 137.50 726 / 1016 530 / 530 Lab / Micro Data Result Diagrams: 10/31/21 03:50 10/31/21 03:50 Labs: Laboratory Results - last 24 hr 10/30/21 03:50: Lactate Dehydrogenase 226, Total Protein 5.9 L, Globulin 3.5, Albumin/Globulin Ratio 0.7 L 10/30/21 13:29: POC Glucose 82 10/30/21 17:32: POC Glucose 117 H 10/30/21 23:39: POC Glucose 134 H 10/31/21 03:50: WBC 11.2 H, RBC 2.87 L, Hgb 8.8 L, Hct 27.7 L, MCV 96.5, MCH 3 0.7, MCHC 31.8 L, RDW Std Deviation 55.2 H, RDW Coeff of Sorin 15.6 H, Plt Count 295, MPV 9.9, Immature Gran % (Auto) 0.700, Neut % (Auto) 87.3 H, Lymph % (Auto) 5.4 L, [place] % (Auto) 6.0, Eos % (Auto) 0.4, Baso % (Auto) 0.2, Absolute Neuts (auto) 9.8 H, Absolute Lymphs (auto) 0.61 L, Nucleated RBC % 0 10/31/21 03:50: Sodium 138, Potassium 3.6, Chloride 89 L, Carbon Dioxide 38.0 H, Anion Gap 11, BUN 36 H, Creatinine 1.34 H, Estim Creat Clear Calc 45.36, Est GFR (MDRD) Af Amer 49 L, Est GFR (MDRD) Non-Af 41 L, BUN/Creatinine Ratio 26.9 H, Gl ucose 136 H, Calcium 8.8, Total Bilirubin 0.70, AST 23, ALT 17, Alkaline Phosphatase 79, Total Protein 5.8 L, Albumin 2.2 L, Globulin 3.6, Albumin/Globulin Ratio 0.6 L 10/31/21 06:19: POC Glucose 157 H Micro: Microbiology 10/29/21 11:30 Sputum, Induced/Lukens Gram Stain - Final 10/29/21 17:20 Urine Catheter - Catheter Legionella Antigen - Final 10/29/21 17:20 Urine Catheter - Catheter Streptococcus pneumoniae Antigen (M - Final 10/29/21 11:30 Mucosa - Nose Respiratory Panel (PCR) - Final Radiography Diagnostic Testing: Radiology Impression Chest Ultrasound 10/30/21 11:23 IMPRESSION: No significant pleural effusion is seen. Electronically Signed: Angel Kyle MD at 13:08 EST , Service support , Physical Exam Const Constitutional Narrative: Morbidly obese. Good vent synchrony. No sedation at this time. HEENT normocephalic and head/scalp atraumatic Mouth: endotracheal tube in place and OG tube in place Eyes PERRL and EOMs intact bilaterally Neck supple Chest inspection of chest normal Resp Resp Narrative: Comfortable with spontaneous tidal volumes around 150 cc Effort and Inspection: mechanically ventilated Auscultation: diminished lung sounds; Negative for rales, rhonchi or wheezes Cardio S1 normal heart sound and S2 normal heart sound Rate: tachycardic GI normal to inspection, nondistended, normoactive bowel sounds Extremity General Extremity: edema bilateral lower extremity Skin no rashes or lesions noted Neuro CN's II-XII intact bilaterally, moves all extremities and no focal motor deficits Charges/Coding Procedures Hospitalists Procedures: [id number] Critial Care 1st Hr
[2021-10-31 07:41] LABS: Base Excess 11 mmol/L (-2 to +2); Blood Gas Specimen Type ART; FI02 35; Mode CPAP/PS; PEEP 5; PO2 70 mmHG (75-100); PS 5; SITE L Radial; SO2 94 % (95-99); Total Carbon Dioxide 37 mmol/L; pCO2 54.2 mmHg (35-45); pH 7.42 (7.35-7.45)
--- NOTE | 2021-10-31 09:51 | CASEMGMT ---
Social Work SW participated in ICU rounds. Pt's present. Plan is for pt to go back to TCU when ready. SW will continue to follow. PRICILA Hurt
--- NOTE | 2021-10-31 09:53 | EKG12_ITS ---
Test Reason : TACHYCARDIA Blood Pressure : / mmHG Vent. Rate : 158 BPM Atrial Rate : 060 BPM P-R Int : 000 ms QRS Dur : 092 ms QT Int : 288 ms P-R-T Axes : 000 107 007 degrees QTc Int : 467 ms Supraventricular tachycardia Possible Right ventricular hypertrophy Cannot rule out Anterior infarct , age undetermined Abnormal ECG When compared with ECG of 29-OCT-2021 04:36, Vent. rate has increased BY 58 BPM Confirmed by ALEKSANDAR PRYOR, BRETT ([id number]), editor newspaper ROSANA NIETO ([id number]) on 11/07/2021 10:14:11 AM Referred By: PITER Confirmed By:BRETT HUERTAS MD
[2021-10-31] MEDS: Enoxaparin 40 MG/0.4 ML Syringe SC (10:02)
[2021-10-31] MEDS: Adenosine 6 MG/2 ML Syringe IV (10:28)
--- NOTE | 2021-10-31 10:31 | ECHOD_ITS ---
Reason For Study: abnormal EKG (SVT) Procedure This was a 2D Doppler, Color Flow transthoracic echocardiogram. The study was technically difficult. Due to body habitus. Deferred Definity due to patient has only 1 kidney. Exam performed portable in ICU/CCU. Left Ventricle Based upon the 2D echocardiographic images obtained there appears to be grossly normal left ventricular size, wall motion, and systolic function. The estimated ejection fraction is 65 %. Unable to assess diastolic dysfunction. No regional wall motion abnormalities noted. Right Ventricle Based upon the 2D echocardiographic images obtained there is grossly normal right ventricular size and systolic function. Atria Normal left atrium. The right atrium is mildly enlarged. No doppler evidence for ASD. Mitral Valve There is no mitral annular calcification. Mild focal mitral valve calcification of the anterior leaflet. Trivial mitral valve insufficiency. Tricuspid Valve Normal tricuspid valve. Mild tricuspid valve insufficiency. Right ventricular systolic pressure estimated to be 45 mmHg. Aortic Valve Trisinus/trileaflet aortic valve. Normal aortic valve. Pulmonic Valve The pulmonic valve is not well visualized. Trivial pulmonic valve insufficiency. Great Vessels The aortic root is not well visualized. Pericardium/Pleural Epicardial fat. Small pericardial effusion. There are no echocardiographic indications of cardiac tamponade. Echo lucency compatible with a pleural effusion. Doppler Measurements & Calculations Ao V2 max: 147.1 cm/sec LV V1 max: 118.2 cm/sec TR max tristan: 304.9 cm/sec Ao max P.7 mmHg LV V1 max P.6 mmHg TR max P.2 mmHg ECHO/Echo Complete Interpretation Summary The study was technically difficult. Based upon the 2D echocardiographic images obtained there appears to be grossly normal left ventricular size, wall motion, and systolic function. The estimated ejection fraction is 65 %. The right atrium is mildly enlarged. Mild focal mitral valve calcification of the anterior leaflet. Trivial mitral valve insufficiency. Mild tricuspid valve insufficiency. Trivial pulmonic valve insufficiency. Epicardial fat. Small pericardial effusion. There are no echocardiographic indications of cardiac tamponade. Echo lucency compatible with a pleural effusion. Right ventricular systolic pressure estimated to be 45 mmHg. Unable to assess diastolic dysfunction. Ordering Physician: Jerry Walton Referring Physician: Momo Carvajal Chi Performed By: Irasema Weber, NIDHI, RVT
--- NOTE | 2021-10-31 10:45 | NURSING ---
HR sustained 150-160's. Dr. Walton present in room and ordered adenosine 6mg IV x1. Adenosine given at 1028. HR slowed down to 40's and revealed normal sinus rhythm. HR then returned to 150's. Patient tolerated well. Dr. Walton stated he will consult cardiology. at bedside and all questions answered.
[2021-10-31 11:55] LABS: Bedside Glucose 120 mg/dL (70-110)
--- NOTE | 2021-10-31 12:35 | PN.HOSP_ITS ---
Subjective Subjective Extubated today. Tachycardic this AM up to 160. Objective Data Objective Data Vital Signs: Vital Signs Temp Pulse Resp BP Pulse Ox 36.7 C 130 H 25 H 105/43 L 98 10/31/21 12:00 10/31/21 12:00 10/31/21 12:00 10/31/21 12:00 10/31/21 12:00 Oxygen Flow Rate (L/min) 3 Oxygen Delivery Method Nasal Cannula Weight: 84.4 kg Body Mass Index (BMI) 38.0 Intake & Output: Intake and Output for Last 24 Hours 10/29/21 10/30/21 10/31/21 23:59 23:59 23:59 Intake Total 327.50 / 337.50 1076 / 1366 790 / 790 Output Total 200 / 200 350 / 350 150 / 150 Balance 127.50 / 137.50 726 / 1016 640 / 640 Lab / Micro Data Result Diagrams: 10/31/21 03:50 10/31/21 03:50 Labs: Laboratory Results - last 24 hr 10/30/21 03:50: Lactate Dehydrogenase 226, Total Protein 5.9 L, Globulin 3.5, Albumin/Globulin Ratio 0.7 L 10/30/21 13:29: POC Glucose 82 10/30/21 17:32: POC Glucose 117 H 10/30/21 23:39: POC Glucose 134 H 10/31/21 03:50: WBC 11.2 H, RBC 2.87 L, Hgb 8.8 L, Hct 27.7 L, MCV 96.5, MCH 30.7, MCHC 31.8 L, RDW Std Deviation 55.2 H, RDW Coeff of Sorin 15.6 H, Plt Count 295, MPV 9.9, Immature Gran % (Auto) 0.700, Neut % (Auto) 87.3 H, Lymph % (Auto) 5.4 L, [place] % (Auto) 6.0, Eos % (Auto) 0.4, Baso % (Auto) 0.2, Absolute Neuts (auto) 9.8 H, Absolute Lymphs (auto) 0.61 L, Nucleated RBC % 0 10/31/21 03:50: Sodium 138, Potassium 3.6, Chloride 89 L, Carbon Dioxide 38.0 H, Anion Gap 11, BUN 36 H, Creatinine 1.34 H, Estim Creat Clear Calc 45.36, Est GFR (MDRD) Af Amer 49 L, Est GFR (MDRD) Non-Af 41 L, BUN/Creatinine Ratio 26.9 H, Glucose 136 H, Calcium 8.8, Total Bilirubin 0.70, AST 23, ALT 17, Alkaline Phosphatase 79, Total Protein 5.8 L, Albumin 2.2 L, Globulin 3.6, Albumin/Globulin Ratio 0.6 L 10/31/21 06:19: POC Glucose 157 H 10/31/21 11:15: POC Glucose 120 H Micro: Microbiology 10/29/21 11:30 Sputum, Induced/Lukens Gram Stain - Final 10/29/21 11:30 Sputum, Induced/Lukens Respiratory Culture - Final 10/31/21 11:35 Nasal Secretion SARS-CoV-2 Antigen (Rapid) - Final 10/29/21 17:20 Urine Catheter - Catheter Legionella Antigen - Final 10/29/21 17:20 Urine Catheter - Catheter Streptococcus pneumoniae Antigen (M - Final 10/29/21 11:30 Mucosa - Nose Respiratory Panel (PCR) - Final ABG Data ABG results: ABG 10/31/21 07:35 Specimen Type ART Sample Site L Radial pH 7.42 Bicarbonate Actual 35.0 H Total CO2 37 Base Excess 11 H O2 Saturation 94 L O2 % 35 ABG pCO2 54.2 H ABG pO2 70 L Vent Mode CPAP/PS POC PEEP 5 POC Pressure Suppt 5 Radiography Diagnostic Testing: Radiology Impression Chest Ultrasound 10/30/21 11:23 IMPRESSION: No significant pleural effusion is seen. Electronically Signed: Angel Kyle MD at 13:08 EST , Service support , Physical Exam Const alert and no apparent distress HEENT Head and Scalp: normocephalic Resp normal respiratory effort and no retractions Cardio regular rate, regular rhythm, S1 normal heart sound and S2 normal heart sound GI normal to inspection, nondistended, normoactive bowel sounds, soft to palpation, non-tender and non-distended Extremity full ROM Extremity Narrative: marked digit deformities Skin no rashes or lesions noted Neuro Sensorium / Orientation: awake and alert Assessment & Plan Assessment/Plan (1) Acute respiratory failure with hypoxia and hypercapnia: (2) Bilateral pleural effusion: (3) (HFpEF) heart failure with preserved ejection fraction: QUALIFIERS: Heart failure chronicity: acute Qualified Code(s): I50.31 - Acute diastolic (congestive) heart failure PLAN: 1. acute hypoxic and hypercapnic respiratory failure multifactorial extubated 10/31 on empiric amp/sulb strep , legionella negative. Cx pending. 2. Pleural effusion suspect transudative thoracentesis ordered 3. Acute HFpEF EF 60% on IV furosemide 4. Metabolic encephalopathy resolved 2/2 hypercapnia 5. VTE prophylaxis: LMWH DW her at bedside. Charges/Coding Visit Charges Inpatient E&M: 75025 Subs Hosp L2
--- NOTE | 2021-10-31 14:46 | CON.PCM.CA_ITS ---
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 At the present time she appears remaining in sinus rhythm/sinus tachycardia. The patient will need to continue evaluation care of her underlying comorbidities which may be exacerbating her cardiac rate and/or rhythm. In the interim it may not be unreasonable to consider the patient to be on additional medical therapy such as a beta-malina if her blood pressure would tolerate it. (2) Pulmonary hypertension: PLAN: Based upon the patient's previous transthoracic echocardiogram as noted above it appears she has severe pulmonary hypertension. This may be secondary to her underlying pulmonary disease process. There is concerned this leads to cor pulmonale and right heart failure. (3) Cor pulmonale: PLAN: Again the patient can have cor pulmonale secondary to her marked pulmonary hypertension. This could lead to right heart failure. (4) Right heart failure: PLAN: The patient has been diagnosed in the past with HFpEF. Based upon review of her clinical scenario her heart failure may be secondary to her pulmonary hypertension and cor pulmonale with right heart failure as opposed to left heart failure either systolic or diastolic mediated. For this she will need to continue evaluation care of her underlying pulmonary disease process. She will need continued medical management to assist with her volume status both with respect to her pulmonary process/pleural effusions as well as her peripheral edema. (5) COVID-19: PLAN: The patient has had COVID-19. She was reassessed this day and was found to be negative by rapid antigen test. (6) Respiratory failure: PLAN: The patient had worsening respiratory status requiring transient mechanical intubation/ventilation. She has now been extubated. She does need to continue evaluation care and pulmonary support. She should be considered for continued diuretic therapy to assist with her volume management. It may be reasonable to consider a follow-up transthoracic echocardiogram to reassess for any significant changes in her LV wall motion and systolic function and would contribute to this finding as well as to reassess, if possible, her estimated right-sided pressures and right-sided anatomy/physiology. (7) HLD (hyperlipidemia): QUALIFIERS: Hyperlipidemia type: unspecified Qualified Code(s): E78.5 - Hyperlipidemia, unspecified PLAN: The patient should continue lipid evaluation care as deemed appropriate. (8) HTN (hypertension): QUALIFIERS: Hypertension type: essential hypertension Qualified Code(s): I10 - Essential (primary) hypertension PLAN: The patient's blood pressure is noted to be low at this time. This may make it challenging with to know medication adjustment. Addt'l Comments The patient's case has been previously discussed and reviewed with Dr. Walton. This note was generated using a voice recognition system and there may be incorrect words, spelling or punctuation that were not noted when reviewing the office note prior to saving. HPI Consult Data Date of Consult: 10/31/21 HPI Narrative HPI Narrative: ABRAN SAENZ, is a 81 year old white female who presents for cardiovascular consultation based upon concerns of PSVT compatible with AVNRT superimposed concerns of heart failure with preserved ejection fraction (HFpEF) with additional diagnoses which has included hyperlipidemia, hypertension, status post nephrectomy, status post COVID-19, arthrogruyposis, and cervical cord myelomalacia/stenosis. The patient has been in and out of [facility] and a transitional care unit with concerns of her underlying pulmonary disease process. During her recent admission she has undergone cardiovascular evaluation which included a transthoracic echocardiogram. This was performed on 10-02-2021. Based upon the report the left ventricle was thought to be normal with respect to systolic function (no LVEF was reported), with mild concentric LVH, moderately severe TR, and estimated PA systolic pressure of 84 mmHg compatible severe pulmonary hypertension, a small pericardial effusion with no cardiac tamponade physiology, and decreased diastolic compliance. She was at [facility] and being considered for possible palliative care and/or hospice care. She was transferred to the transitional care unit. However based upon ongoing pulmonary related issues and concerns of hypoxemia she was subsequently evaluated in the emergency department. There was an abnormal chest x-ray suggestive of underlying pulmonary disease process and pleural effusions. A chest CTA was performed which suggested bilateral pleural effusions. Based upon her declining pulmonary status she subsequently underwent mechanical intubation/ventilation. She has been in the ICU and was successfully extubated earlier this day. After being extubated she developed an episode of paroxysmal supraventricular tachycardia. Based upon an ECG at the time it appeared she had an underlying SVT with an incomplete right bundle branch block pattern with a low voltage QRS and poor R wave progression. She was treated with IV adenosine 6 mg IV push x1. She had subsequent alteration in her rhythm to an underlying sinus rhythm with the appearance of transient 2-1 AV conduction and then return to sinus rhythm/sinus tachycardia. At the present time she does not know of any previously defined cardiac diagnosis. Other than her echocardiogram she does not recall going through any other cardiovascular diagnostic studies/procedures in the past. She has denied ongoing chest discomfort suspicious for angina pectoris. She has had chronic shortness of breath and dyspnea. She has had chronic bilateral lower extremity peripheral pitting edema. She does not recall any episodes of near syncope or syncope. She states overall her breathing has improved. She states that since being extubated she has a frog in her throat. [facility] Medical History (Updated 10/31/21 @ 14:[address] Stephen Nath MD) Acute congestive heart failure Arthrogryposis Bilateral leg weakness Cervical cord myelomalacia Cervical stenosis of spinal canal Cor pulmonale COVID-19 Diastolic CHF Hearing loss, left Hearing loss, right HLD (hyperlipidemia) HTN (hypertension) Hypoxia Kidney disease Lumbar stenosis Morbid obesity with BMI of 40.0-44.9, adult Non-smoker Pneumonia PSVT (paroxysmal supraventricular tachycardia) Right heart failure S/p nephrectomy SBO (small bowel obstruction) Sepsis Shortness of breath Single kidney Wears hearing aid in both ears Home Medications aspirin 81 mg PO DAILY@0800 07/12/15 [History Last Taken 10/01/21] calcium carbonate-vitamin D3 1 tab PO DAILY 07/12/15 [History Last Taken 10/01/21] L.acidoph, paracasei,B. lactis 1 ea PO DAILY 03/22/19 [History Last Taken 10/01/21] furosemide 40 mg PO BID 03/22/19 [History Last Taken 10/01/21] Mineral Oil/Petrolatum,White [Eucerin] 1 applic TOPICAL BID #0 10/26/21 [Rx Last Taken Unknown] acetaminophen 1,000 mg PO Q6H PRN PRN #0 tab 10/26/21 [Rx Last Taken Unknown] gabapentin 100 mg PO TIDCM 30 Days #90 cap 10/26/21 [Rx Last Taken Unknown] menthol-zinc oxide [Calmoseptine] 1 applic TOPICAL BID #0 g 10/26/21 [Rx Last Taken Unknown] albuterol sulfate [Ventolin] 2.5 mg INHALATION Q2H PRN PRN 10/28/21 [History Last Taken Unknown] bisacodyl 10 mg PO QHS PRN 10/28/21 [History Last Taken Unknown] ipratropium-albuterol [DuoNeb] 3 ml INHALATION Q6H PRN 10/28/21 [History Last Taken Unknown] levofloxacin in D5W [Levaquin in 5 % dextrose] 750 mg IV Q24H 10/28/21 [History Last Taken Unknown] nitroglycerin 0.4 mg SUBLINGUAL Q5M PRN 10/28/21 [History Last Taken Unknown] nystatin [Mycostatin] 1 applic TOPICAL BID 10/28/21 [History Last Taken Unknown] potassium chloride 20 meq PO BID 10/28/21 [History Last Taken Unknown] senna-docusate sodium 1 tab PO BID 10/28/21 [History Last Taken Unknown] lisinopril [Zestril] 5 mg PO DAILY 10/29/21 [History Last Taken Unknown] Allergy/AdvReac Type Severity Reaction Status Date / Time No Known Allergies Allergy Verified 10/28/21 17:00 Surgical History H/O section History of orthopedic surgery S/p nephrectomy Status post laparoscopy Social History household members: spouse Smoking Status: Never smoker alcohol intake: never substance use type: does not use ROS Constitutional Constitutional: Reports as per HPI Eyes Eyes: Reports as per HPI ENT HEENT: Reports as per HPI Cardiovascular Cardiovascular: Reports dyspnea and edema Respiratory/Chest Respiratory/Chest: Reports dyspnea Gastrointestinal Gastrointestinal: Reports as per HPI Genitourinary Genitourinary: Reports as per HPI Musculoskeletal Musculoskeletal: Reports as per HPI Integumentary Integumentary: Reports as per HPI Neurologic Neurologic: Reports as per HPI Physical Exam Const alert and oriented x3 Orientation / Consciousness: awake HEENT normocephalic, head/scalp atraumatic and hearing grossly normal bilaterally Eyes PERRL, EOMs intact bilaterally, conjunctivae normal and no scleral icterus Neck full ROM, supple and no JVD Resp Auscultation: rhonchi throughout Cardio regular rhythm, S1 normal heart sound and S2 normal heart sound Rate: tachycardic GI normal to inspection, nondistended, normoactive bowel sounds Extremity Extremity Narrative: Wearing bilateral lower extremity leg braces General Extremity: edema left upper extremity mild and bilateral lower extremity Details: mild Skin no rashes or lesions noted Neuro oriented x3 and moves all extremities Psych mental status grossly normal Risk Stratification Risk Stratification Applicable: No Procedure Criteria Type of Procedure Procedure Type: Elective Elective Risks - COVID COVID Risk Discussion: The surgeon/proceduralist and patient have discussed in detail the risk of exposure to and/or potential harm posed by the COVID-19 virus with having a surgery/procedure at this time versus the risk of delaying the surgery/procedure. It is not possible to know either the risk of delaying the surgery or procedure or chance of getting an infection with perfect accuracy, but a joint decision was made between the patient and the surgeon/proceduralist to proceed at this time with the scheduled surgery/procedure as indicated on the consent form. Objective Data Vital Signs: Vital Signs Temp Pulse Resp BP Pulse Ox 98.1 F 116 H 26 H 83/56 L 100 10/31/21 12:00 10/31/21 14:00 10/31/21 14:00 10/31/21 14:00 10/31/21 14:00 Oxygen Flow Rate (L/min) 3 Oxygen Delivery Method Non-Rebreather Weight: 186 lb 1.122 oz Body Mass Index (BMI) 38.0 Intake & Output: Intake and Output for Last 24 Hours 10/29/21 10/30/21 10/31/21 23:59 23:59 23:59 Intake Total 327.50 / 337.50 1076 / 1366 840 / 840 Output Total 200 / 200 350 / 350 150 / 150 Balance 127.50 / 137.50 726 / 1016 690 / 690 Lab / Micro Data Result Diagrams: 10/31/21 03:50 10/31/21 03:50 Labs: Laboratory Results - last 24 hr 10/30/21 17:32: POC Glucose 117 H 10/30/21 23:39: POC Glucose 134 H 10/31/21 03:50: WBC 11.2 H, RBC 2.87 L, Hgb 8.8 L, Hct 27.7 L, MCV 96.5, MCH 30.7, MCHC 31.8 L, RDW Std Deviation 55.2 H, RDW Coeff of Sorin 15.6 H, Plt Count 295, MPV 9.9, Immature Gran % (Auto) 0.700, Neut % (Auto) 87.3 H, Lymph % (Auto) 5.4 L, [place] % (Auto) 6.0, Eos % (Auto) 0.4, Baso % (Auto) 0.2, Absolute Neuts (auto) 9.8 H, Absolute Lymphs (auto) 0.61 L, Nucleated RBC % 0 10/31/21 03:50: Sodium 138, Potassium 3.6, Chloride 89 L, Carbon Dioxide 38.0 H, Anion Gap 11, BUN 36 H, Creatinine 1.34 H, Estim Creat Clear Calc 45.36, Est GFR (MDRD) Af Amer 49 L, Est GFR (MDRD) Non-Af 41 L, BUN/Creatinine Ratio 26.9 H, Glucose 136 H, Calcium 8.8, Total Bilirubin 0.70, AST 23, ALT 17, Alkaline Phosphatase 79, Total Protein 5.8 L, Albumin 2.2 L, Globulin 3.6, Albumin/Glob ulin Ratio 0.6 L 10/31/21 06:19: POC Glucose 157 H 10/31/21 11:15: POC Glucose 120 H Micro: Microbiology 10/29/21 11:30 Sputum, Induced/Lukens Gram Stain - Final 10/29/21 11:30 Sputum, Induced/Lukens Respiratory Culture - Final 10/31/21 11:35 Nasal Secretion SARS-CoV-2 Antigen (Rapid) - Final ABG Data ABG results: ABG 10/31/21 07:35 Specimen Type ART Sample Site L Radial pH 7.42 Bicarbonate Actual 35.0 H Total CO2 37 Base Excess 11 H O2 Saturation 94 L O2 % 35 ABG pCO2 54.2 H ABG pO2 70 L Vent Mode CPAP/PS POC PEEP 5 POC Pressure Suppt 5 Cardiology Labs/Tests 10/31/21 03:50: WBC 11.2 H, RBC 2.87 L, Hgb 8.8 L, Hct 27.7 L, MCV 96.5, MCH 30.7, MCHC 31.8 L, Plt Count 295, MPV 9.9, Immature Gran % (Auto) 0.700, Neut % (Auto) 87.3 H, Lymph % (Auto) 5.4 L, [place] % (Auto) 6.0, Eos % (Auto) 0.4, Baso % (Auto) 0.2, Absolute Neuts (auto) 9.8 H, Nucleated RBC % 0 10/31/21 03:50: Sodium 138, Potassium 3.6, Chloride 89 L, Carbon Dioxide 38.0 H, Anion Gap 11, BUN 36 H, Creatinine 1.34 H, Est GFR (MDRD) Af Amer 49 L, Est GFR (MDRD) Non-Af 41 L, BUN/Creatinine Ratio 26.9 H, Glucose 136 H, Calcium 8.8, Total Bilirubin 0.70 10/31/21 07:35: pH 7.42, Bicarbonate Actual 35.0 H, Base Excess 11 H, O2 Saturation 94 L, ABG pCO2 54.2 H, ABG pO2 70 L Rhythm: Sinus rhythm/sinus tachycardia EKG: As noted above ECHO: 10-02-2021 Interpretation Summary Normal LV size. Mild concentric left ventricular hypertrophy. Left ventricular systolic function is normal. Stage 1 diastolic dysfunction. Pulmonary artery systolic pressure is 84 mmHg. Severe pulmonary hypertension. Small pericardial effusion. There are no echocardiographic indications of cardiac tamponade.
[2021-10-31 18:00] LABS: Bedside Glucose 101 mg/dL (70-110)
[2021-10-31 23:36] LABS: Bedside Glucose 89 mg/dL (70-110)
[2021-11-01] VITALS (23 sets, daily range): BP systolic 90–115; BP diastolic 54–71; PULSE 87–102; RESP 18–26; TEMP 36.1–36.9; O2SAT 92–100
[2021-11-01 03:38] LABS: Absolute Lymphocyte Count 0.55 X10^3/uL (0.83-4.51); Absolute Neutrophil Count 7.5 X10^3/uL (2.0-7.7); Basophil# 0.02 X10^3/uL; Basophil% 0.2 % (0-1); Eosinophils% 1.1 % (0-5); Hematocrit 28.5 % (37-47); Hemoglobin 8.6 g/dL (12.0-15.0); Lymphocyte # 0.55 X10^3/ul (0.83-4.51); Lymphocyte % 6.2 % (19-41); Mean Corp Hgb Conc 30.2 g/dL (32-36); Mean Corpuscular Hgb 30.8 pg (27.0-32.0); Mean Corpuscular Volume 102.2 fL (81-99); Mean Platelet Vol. 9.7 fl (6.2-12.0); Monocyte# 0.65 X10^3/uL; Monocyte% 7.3 % (0-10); NRBC Flagged by Analyzer 0 % (0-5); Neutrophil # 7.48 X10^3/uL (2.7-7.7); Neutrophil % 84.6 % (47-70); POSITIVE DIFFERENTIAL YES; Platelet Count 257 K/mm3 (150-450); RBC Distribution Width CV 15.9 % (11.6-14.6); RBC Distribution Width SD 59.1 fl (35.1-43.9); Red Blood Count 2.79 M/mm3 (4.2-5.4); White Blood Count 8.9 K/mm3 (4.4-11.0)
[2021-11-01 04:01] LABS: Anion Gap 11 (5-15); BUN 42 mg/dL (7-18); BUN/Creat Ratio 31.6 RATIO (10-20); Calcium,Total 8.9 mg/dL (8.5-10.1); Chloride 92 mmol/L (98-107); Creatinine, Serum 1.33 mg/dL (0.55-1.02); EST Glomerular Filtration Rate 41 mL/min (>60); Est Glom Filt Rate - Afr Amer 50 mL/min (>60); Glucose 94 mg/dL (74-106); Potassium 3.6 mmol/L (3.5-5.1); Sodium Level 142 mmol/L (136-145)
[2021-11-01 04:10] LABS: Differential Comment SCANNED
[2021-11-01] MEDS: Ipratropium/Albuterol Sulfate 3 ML AMPUL.NEB INHALATION ×3 (06:30→20:15)
--- NOTE | 2021-11-01 08:15 | PN.CC_ITS ---
Assessment & Plan Assessment/Plan (1) Respiratory failure: PLAN: RECOMMENDATIONS: 1. Initiate AutoPap with sleep. 2. Complete 7 days of antibiotics for aspiration 3. Wean oxygen as tolerated 4. Increase diuresis as tolerated by hemodynamics and renal function 5. Okay to transfer from the intensive care unit IMPRESSIONS: 1. Acute combined respiratory failure The patient initially presented to the emergency department from the TCU on October 29 with worsening shortness of breath and hypoxemia. Her respiratory status continued to deteriorate and she eventually became obtunded, requiring transfer to the intensive care unit and subsequent intubation. The etiology for her decompensation is likely multifactorial in nature with decompensated diastolic heart failure and potential pulmonary infectious etiology contributing. The patient also likely has a component of obesity hypoventilation and possible sleep apnea contributing as well. Patient with significant hypoxia overnight, likely secondary to sleep apnea. This would contribute chronically to patient's pulmonary hypertension. Can attempt initiation of AutoPap with sleep. Patient likely okay to leave the intensive care unit 2. Metabolic encephalopathy Resolved. Likely secondary to hypercapnia. Continue supportive measures as noted above. 3. History of severe spinal stenosis/pulmonary hypertension/ob esity/generalized debility Complicates care, management, recovery and prognosis. Continue home medications as indicated. Nutrition consultation will be obtained for tube feed recommendations. Patient appears to have a syndromic appearance. Some concern for swallow, so speech therapy is following. Subjective Subjective Patient did well through the day yesterday requiring only minimal nasal cannula oxygen. However, overnight, patient had significant desaturations while sleeping requiring a nonrebreather. Patient also had issues with coughing associated with p.o. intake, so was deferred to speech therapy. Objective Data Objective Data Vital Signs: Vital Signs Temp Pulse Resp BP Pulse Ox 36.3 C L 91 18 101/60 100 11/01/21 07:00 11/01/21 07:00 11/01/21 07:00 11/01/21 07:00 11/01/21 07:00 Oxygen Flow Rate (L/min) 8 Oxygen Delivery Method High Flow Weight: 83.5 kg Body Mass Index (BMI) 38.0 Intake & Output: Intake and Output for Last 24 Hours 10/30/21 10/31/21 11/01/21 23:59 23:59 23:59 Intake Total 1076 / 1366 940 / 940 50 / 50 Output Total 350 / 350 275 / 425 325 / 325 Balance 726 / 1016 665 / 515 -275 / -275 Lab / Micro Data Result Diagrams: 11/01/21 03:30 11/01/21 03:30 Labs: Laboratory Results - last 24 hr 10/31/21 11:15: POC Glucose 120 H 10/31/21 17:52: POC Glucose 101 10/31/21 23:18: POC Glucose 89 11/01/21 03:30: WBC 8.9, RBC 2.79 L, Hgb 8.6 L, Hct 28.5 L, MCV 102.2 H D, MCH 30.8, MCHC 30.2 L D, RDW Std Deviation 59.1 H, RDW Coeff of Sorin 15.9 H, Plt Count 257, MPV 9.7, Immature Gran % (Auto) 0.600, Neut % (Auto) 84.6 H, Lymph % (Auto) 6.2 L, [place] % (Auto) 7.3, Eos % (Auto) 1.1, Baso % (Auto) 0.2, Absolute Neuts (auto) 7.5, Absolute Lymphs (auto) 0.55 L, Nucleated RBC % 0, Differential Comment SCANNED 11/01/21 03:30: Sodium 142, Potassium 3.6, Chloride 92 L, Carbon Dioxide 39.0 H, Anion Gap 11, BUN 42 H, Creatinine 1.33 H, Estim Creat Clear Calc 45.70, Est GFR (MDRD) Af Amer 50 L, Est GFR (MDRD) Non-Af 41 L, BUN/Creatinine Ratio 31.6 H, Glucose 94, Calcium 8.9 Micro: Microbiology 10/29/21 11:30 Sputum, Induced/Lukens Gram Stain - Final 10/29/21 11:30 Sputum, Induced/Lukens Respiratory Culture - Final 10/31/21 11:35 Nasal Secretion SARS-CoV-2 Antigen (Rapid) - Final 10/29/21 17:20 Urine Catheter - Catheter Legionella Antigen - Final 10/29/21 17:20 Urine Catheter - Catheter Streptococcus pneumoniae Antigen (M - Final 10/29/21 11:30 Mucosa - Nose Respiratory Panel (PCR) - Final Radiography Diagnostic Testing: Radiology Impression Echocardiogram 10/31/21 10:31 Interpretation Summary The study was technically difficult. Based upon the 2D echocardiographic images obtained there appears to be grossly normal left ventricular size, wall motion, and systolic function. The estimated ejection fraction is 65 %. The right atrium is mildly enlarged. Mild focal mitral valve calcification of the anterior leaflet. Trivial mitral valve insufficiency. Mild tricuspid valve insufficiency. Trivial pulmonic valve insufficiency. Epicardial fat. Small pericardial effusion. There are no echocardiographic indications of cardiac tamponade. Echo lucency compatible with a pleural effusion. Right ventricular systolic pressure estimated to be 45 mmHg. Unable to assess diastolic dysfunction. Ordering Physician: Jerry Walton Referring Physician: Momo Carvajal Chi Performed By: Irasema Weber, NIDHI, RVT Physical Exam Const Constitutional Narrative: Morbidly obese. No sedation at this time. Some hoarseness with voice HEENT normocephalic and head/scalp atraumatic Mouth: endotracheal tube in place and OG tube in place Eyes PERRL and EOMs intact bilaterally Neck supple Chest inspection of chest normal Resp Auscultation: diminished lung sounds; Negative for rales, rhonchi or wheezes Cardio S1 normal heart sound, S2 normal heart sound, no murmurs, no rub and no gallops Rate: regular rate Rhythm: regular rhythm GI normal to inspection, nondistended, normoactive bowel sounds Extremity General Extremity: edema bilateral lower extremity Skin no rashes or lesions noted Neuro CN's II-XII intact bilaterally, moves all extremities and no focal motor deficits Charges/Coding Visit Charges Inpatient E&M: 45918 Subs Hosp L3
--- NOTE | 2021-11-01 08:59 | PCM.PN.CARD ---
Subjective Subjective The patient is awake and alert. She denies any ongoing chest discomfort, worsening shortness of breath, or palpitations/rapid heart rate sensation at this time. Objective Data Vital Signs: Vital Signs Temp Pulse Resp BP Pulse Ox 97.4 F L 91 18 101/60 100 11/01/21 07:00 11/01/21 07:00 11/01/21 07:00 11/01/21 07:00 11/01/21 07:00 Oxygen Flow Rate (L/min) 5 Oxygen Delivery Method Nasal Cannula Weight: 184 lb 1.376 oz Body Mass Index (BMI) 38.0 Intake & Output: Intake and Output for Last 24 Hours 10/30/21 10/31/21 11/01/21 23:59 23:59 23:59 Intake Total 1076 / 1366 940 / 940 50 / 50 Output Total 350 / 350 275 / 425 325 / 325 Balance 726 / 1016 665 / 515 -275 / -275 Lab / Micro Data Result Diagrams: 11/01/21 03:30 11/01/21 03:30 Labs: Laboratory Results - last 24 hr 10/31/21 11:15: POC Glucose 120 H 10/31/21 17:52: POC Glucose 101 10/31/21 23:18: POC Glucose 89 11/01/21 03:30: WBC 8.9, RBC 2.79 L, Hgb 8.6 L, Hct 28.5 L, MCV 102.2 H D, MCH 30.8, MCHC 30.2 L D, RDW Std Deviation 59.1 H, RDW Coeff of Sorin 15.9 H, Plt Count 257, MPV 9.7, Immature Gran % (Auto) 0.600, Neut % (Auto) 84.6 H, Lymph % (Auto) 6.2 L, [place] % (Auto) 7.3, Eos % (Auto) 1.1, Baso % (Auto) 0.2, Absolute Neuts (auto) 7.5, Absolute Lymphs (auto) 0.55 L, Nucleated RBC % 0, Differential Comment SCANNED 11/01/21 03:30: Sodium 142, Potassium 3.6, Chloride 92 L, Carbon Dioxide 39.0 H, Anion Gap 11, BUN 42 H, Creatinine 1.33 H, Estim Creat Clear Calc 45.70, Est GFR (MDRD) Af Amer 50 L, Est GFR (MDRD) Non-Af 41 L, BUN/Creatinine Ratio 31.6 H, Glucose 94, Calcium 8.9 Micro: Microbiology 10/29/21 11:30 Sputum, Induced/Lukens Gram Stain - Final 10/29/21 11:30 Sputum, Induced/Lukens Respiratory Culture - Final 10/31/21 11:35 Nasal Secretion SARS-CoV-2 Antigen (Rapid) - Final Cardiology Labs/Tests 11/01/21 03:30: WBC 8.9, RBC 2.79 L, Hgb 8.6 L, Hct 28.5 L, MCV 102.2 H D, MCH 30.8, MCHC 30.2 L D, Plt Count 257, MPV 9.7, Immature Gran % (Auto) 0.600, Neut % (Auto) 84.6 H, Lymph % (Auto) 6.2 L, [place] % (Auto) 7.3, Eos % (Auto) 1.1, Baso % (Auto) 0.2, Absolute Neuts (auto) 7.5, Nucleated RBC % 0 11/01/21 03:30: Sodium 142, Potassium 3.6, Chloride 92 L, Carbon Dioxide 39.0 H, Anion Gap 11, BUN 42 H, Creatinine 1.33 H, Est GFR (MDRD) Af Amer 50 L, Est GFR (MDRD) Non-Af 41 L, BUN/Creatinine Ratio 31.6 H, Glucose 94, Calcium 8.9 Rhythm: Sinus rhythm ECHO: As noted below Radiography Diagnostic Testing: Radiology Impression Echocardiogram 10/31/21 10:31 Interpretation Summary The study was technically difficult. Based upon the 2D echocardiographic images obtained there appears to be grossly normal left ventricular size, wall motion, and systolic function. The estimated ejection fraction is 65 %. The right atrium is mildly enlarged. Mild focal mitral valve calcification of the anterior leaflet. Trivial mitral valve insufficiency. Mild tricuspid valve insufficiency. Trivial pulmonic valve insufficiency. Epicardial fat. Small pericardial effusion. There are no echocardiographic indications of cardiac tamponade. Echo lucency compatible with a pleural effusion. Right ventricular systolic pressure estimated to be 45 mmHg. Unable to assess diastolic dysfunction. Ordering Physician: Jerry Walton Referring Physician: Momo Carvajal Chi Performed By: Irasema Weber, RDCS, RVT Physical Exam Const alert and oriented x3 Orientation / Consciousness: awake HEENT normocephalic, head/scalp atraumatic and hearing grossly normal bilaterally Eyes PERRL, EOMs intact bilaterally, conjunctivae normal and no scleral icterus Neck full ROM, supple and no JVD Resp Auscultation: rhonchi throughout Cardio regular rhythm, S1 normal heart sound and S2 normal heart sound Rate: tachycardic GI normal to inspection, nondistended, normoactive bowel sounds Extremity Extremity Narrative: Wearing bilateral lower extremity leg braces General Extremity: edema left upper extremity mild and bilateral lower extremity Details: mild Skin no rashes or lesions noted Neuro oriented x3 and moves all extremities Psych mental status grossly normal Assessment & Plan Assessment/Plan (1) PSVT (paroxysmal supraventricular tachycardia): PLAN: The patient had an episode of PSVT which appears compatible, 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 At the present time she appears remaining in sinus rhythm/sinus tachycardia. The patient will need to continue evaluation care of her underlying comorbidities which may be exacerbating her cardiac rate and/or rhythm. As her blood pressure appears to improved an attempt will be made to add low-dose beta-blockers with the hope this will assist with her underlying cardiac rate/rhythm. (2) Pulmonary hypertension: PLAN: A transthoracic echocardiogram was repeated. Her estimated RV systolic pressure was reported at approximately 45 mmHg which is somewhat less than her previous study but still elevated. She will need continued pulmonary evaluation and care. (3) Cor pulmonale: PLAN: Again the patient can have cor pulmonale secondary to her marked pulmonary hypertension. This could lead to right heart failure. (4) Right heart failure: PLAN: The patient has been diagnosed in the past with HFpEF. Based upon review of her clinical scenario her heart failure may be secondary to her pulmonary hypertension and cor pulmonale with right heart failure as opposed to left heart failure either systolic or diastolic mediated. For this she will need to continue evaluation care of her underlying pulmonary disease process. She will need continued medical management to assist with her volume status both with respect to her pulmonary process/pleural effusions as well as her peripheral edema. (5) COVID-19: PLAN: The patient has had COVID-19. She was reassessed this day and was found to be negative by rapid antigen test. (6) Respiratory failure: PLAN: She does need to continue evaluation care and pulmonary support. She may need additional diuretic therapy, depending upon her clinical course, to assist with her volume status and her pulmonary condition. (7) HLD (hyperlipidemia): QUALIFIERS: Hyperlipidemia type: unspecified Qualified Code(s): E78.5 - Hyperlipidemia, unspecified PLAN: The patient should continue lipid evaluation care as deemed appropriate. (8) HTN (hypertension): QUALIFIERS: Hypertension type: essential hypertension Qualified Code(s): I10 - Essential (primary) hypertension PLAN: The patient's blood pressure appears to be somewhat improved. Again it will need to be monitored as it may impact her medication options. Addt'l Comments This note was generated using a voice recognition system and there may be incorrect words, spelling or punctuation that were not noted when reviewing the office note prior to saving.
[2021-11-01] MEDS: Enoxaparin 40 MG/0.4 ML Syringe SC (09:54)
[2021-11-01] MEDS: Metoprolol Tartrate 5 MG/5 ML Vial IV ×2 (11:36→23:13)
--- NOTE | 2021-11-01 11:37 | PN.HOSP_ITS ---
Subjective Subjective doing well. Objective Data Objective Data Vital Signs: Vital Signs Temp Pulse Resp BP Pulse Ox 36.5 C L 92 18 115/65 99 11/01/21 11:30 11/01/21 11:30 11/01/21 11:30 11/01/21 11:30 11/01/21 11:30 Oxygen Flow Rate (L/min) 3 Oxygen Delivery Method Nasal Cannula Weight: 83.5 kg Body Mass Index (BMI) 38.0 Intake & Output: Intake and Output for Last 24 Hours 10/30/21 10/31/21 11/01/21 23:59 23:59 23:59 Intake Total 1076 / 1366 940 / 940 160 / 160 Output Total 350 / 350 275 / 425 325 / 325 Balance 726 / 1016 665 / 515 -165 / -165 Lab / Micro Data Result Diagrams: 11/01/21 03:30 11/01/21 03:30 Labs: Laboratory Results - last 24 hr 10/31/21 11:15: POC Glucose 120 H 10/31/21 17:52: POC Glucose 101 10/31/21 23:18: POC Glucose 89 11/01/21 03:30: WBC 8.9, RBC 2.79 L, Hgb 8.6 L, Hct 28.5 L, MCV 102.2 H D, MCH 30.8, MCHC 30.2 L D, RDW Std Deviation 59.1 H, RDW Coeff of Sorin 15.9 H, Plt Count 257, MPV 9.7, Immature Gran % (Auto) 0.600, Neut % (Auto) 84.6 H, Lymph % (Auto) 6.2 L, [place] % (Auto) 7.3, Eos % (Auto) 1.1, Baso % (Auto) 0.2, Absolute Neuts (auto) 7.5, Absolute Lymphs (auto) 0.55 L, Nucleated RBC % 0, Differential Comment SCANNED 11/01/21 03:30: Sodium 142, Potassium 3.6, Chloride 92 L, Carbon Dioxide 39.0 H, Anion Gap 11, BUN 42 H, Creatinine 1.33 H, Estim Creat Clear Calc 45.70, Est GFR (MDRD) Af Amer 50 L, Est GFR (MDRD) Non-Af 41 L, BUN/Creatinine Ratio 31.6 H, Glucose 94, Calcium 8.9 Micro: Microbiology 10/29/21 11:30 Sputum, Induced/Lukens Gram Stain - Final 10/29/21 11:30 Sputum, Induced/Lukens Respiratory Culture - Final 10/31/21 11:35 Nasal Secretion SARS-CoV-2 Antigen (Rapid) - Final 10/29/21 17:20 Urine Catheter - Catheter Legionella Antigen - Final 10/29/21 17:20 Urine Catheter - Catheter Streptococcus pneumoniae Antigen (M - Final 10/29/21 11:30 Mucosa - Nose Respiratory Panel (PCR) - Final Radiography Diagnostic Testing: Radiology Impression Echocardiogram 10/31/21 10:31 Interpretation Summary The study was technically difficult. Based upon the 2D echocardiographic images obtained there appears to be grossly normal left ventricular size, wall motion, and systolic function. The estimated ejection fraction is 65 %. The right atrium is mildly enlarged. Mild focal mitral valve calcification of the anterior leaflet. Trivial mitral valve insufficiency. Mild tricuspid valve insufficiency. Trivial pulmonic valve insufficiency. Epicardial fat. Small pericardial effusion. There are no echocardiographic indications of cardiac tamponade. Echo lucency compatible with a pleural effusion. Right ventricular systolic pressure estimated to be 45 mmHg. Unable to assess diastolic dysfunction. __ Ordering Physician: Jerry Walton Referring Physician: Momo Carvajal Chi Performed By: Irasema Weber, RDCS, RVT Physical Exam Const alert and no apparent distress Resp normal respiratory effort, no retractions, no use of accessory muscles and clear to auscultation bilaterally Cardio regular rate, regular rhythm, S1 normal heart sound and S2 normal heart sound GI normal to inspection, nondistended, normoactive bowel sounds, soft to palpation and non-tender Assessment & Plan Assessment/Plan (1) Acute respiratory failure with hypoxia and hypercapnia: (2) Bilateral pleural effusion: (3) (HFpEF) heart failure with preserved ejection fraction: QUALIFIERS: Heart failure chronicity: acute Qualified Code(s): I50.31 - Acute diastolic (congestive) heart failure PLAN: 1. acute hypoxic and hypercapnic respiratory failure multifactorial extubated 10/31 on empiric amp/sulb strep , legionella negative. Cx pending. 2. Pleural effusion suspect transudative thoracentesis ordered 3. Acute HFpEF EF 60% on IV furosemide 4. Metabolic encephalopathy resolved 2/2 hypercapnia 5. VTE prophylaxis: LMWH DW her at bedside. Transfer to PCU. Charges/Coding Visit Charges Inpatient E&M: 63350 Subs Hosp L2
[2021-11-01 12:25] LABS: Bedside Glucose 73 mg/dL (70-110)
[2021-11-01 17:16] LABS: Bedside Glucose 72 mg/dL (70-110)
[2021-11-01 21:36] LABS: Bedside Glucose 76 mg/dL (70-110)
[2021-11-01] MEDS: 0.9% Saline Lock 10 ML Syringe IV (23:13)
--- NOTE | 2021-11-01 23:32 | CPS ---
pt placed on AutoPAP
[2021-11-02] VITALS (17 sets, daily range): BP systolic 90–110; BP diastolic 54–65; PULSE 71–90; RESP 16–24; TEMP 36.4–36.7; O2SAT 94–100
--- NOTE | 2021-11-02 01:05 | CPS ---
pt unable to tolerate AutoPAP, Pt placed back on 3 lpm
[2021-11-02] MEDS: Ipratropium/Albuterol Sulfate 3 ML AMPUL.NEB INHALATION ×3 (01:40→20:35)
[2021-11-02] MEDS: Metoprolol Tartrate 5 MG/5 ML Vial IV (05:24)
[2021-11-02] MEDS: 0.9% Saline Lock 10 ML Syringe IV ×3 (05:24→14:15)
[2021-11-02 07:00] LABS: Bedside Glucose 76 mg/dL (70-110)
[2021-11-02 07:20] LABS: Anion Gap 9 (5-15); BUN 42 mg/dL (7-18); BUN/Creat Ratio 30.4 RATIO (10-20); Chloride 94 mmol/L (98-107); Creatinine, Serum 1.38 mg/dL (0.55-1.02); EST Glomerular Filtration Rate 39 mL/min (>60); Est Glom Filt Rate - Afr Amer 47 mL/min (>60); Estimated Creatinine Clearance 44.62 ml/min; Glucose 75 mg/dL (74-106); Potassium 4.3 mmol/L (3.5-5.1); Sodium Level 139 mmol/L (136-145)
[2021-11-02] MEDS: Enoxaparin 40 MG/0.4 ML Syringe SC (09:34)
--- NOTE | 2021-11-02 12:51 | PCM.PN.CARD ---
Subjective Subjective The patient is awake and alert. She notes overall she feels better. She is not complaining of ongoing chest discomfort or relapsing/worsening shortness of breath/dyspnea. Objective Data Vital Signs: Vital Signs Temp Pulse Resp BP Pulse Ox 98.0 F 81 18 95/63 99 11/02/21 10:50 11/02/21 11:40 11/02/21 10:50 11/02/21 11:40 11/02/21 10:50 Oxygen Flow Rate (L/min) 3 Oxygen Delivery Method Room Air Weight: 188 lb 7.924 oz Body Mass Index (BMI) 38.0 Intake & Output: Intake and Output for Last 24 Hours 10/31/21 11/01/21 11/02/21 23:59 23:59 23:59 Intake Total 940 / 940 320 / 560 450 / 450 Output Total 275 / 425 600 / 675 175 / 175 Balance 665 / 515 -280 / -115 275 / 275 Lab / Micro Data Result Diagrams: 11/01/21 03:30 11/02/21 06:35 Labs: Laboratory Results - last 24 hr 11/01/21 17:11: POC Glucose 72 11/01/21 21:29: POC Glucose 76 11/02/21 06:35: Sodium 139, Potassium 4.3, Chloride 94 L, Carbon Dioxide 36.0 H, Anion Gap 9, BUN 42 H, Creatinine 1.38 H, Estim Creat Clear Calc 44.62, Est GFR (MDRD) Af Amer 47 L, Est GFR (MDRD) Non-Af 39 L, BUN/Creatinine Ratio 30.4 H, Glucose 75, Calcium 9.0 11/02/21 06:45: POC Glucose 76 Cardiology Labs/Tests 11/02/21 06:35: Sodium 139, Potassium 4.3, Chloride 94 L, Carbon Dioxide 36.0 H, Anion Gap 9, BUN 42 H, Creatinine 1.38 H, Est GFR (MDRD) Af Amer 47 L, Est GFR (MDRD) Non-Af 39 L, BUN/Creatinine Ratio 30.4 H, Glucose 75, Calcium 9.0 Rhythm: Sinus rhythm Physical Exam Const alert and oriented x3 Orientation / Consciousness: awake HEENT normocephalic, head/scalp atraumatic and hearing grossly normal bilaterally Eyes PERRL, EOMs intact bilaterally and conjunctivae normal Neck supple and no JVD Resp Auscultation: rhonchi throughout Cardio regular rate, regular rhythm, S1 normal heart sound and S2 normal heart sound GI normal to inspection, nondistended, normoactive bowel sounds Extremity General Extremity: edema bilateral lower extremity Details: mild Skin no rashes or lesions noted Psych mental status grossly normal Assessment & Plan Assessment/Plan (1) PSVT (paroxysmal supraventricular tachycardia): PLAN: The patient had an episode of PSVT which appears compatible, 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 At the present time she appears remaining in sinus rhythm/sinus tachycardia. When the patient is able, from a swallowing standpoint, to initiate oral medication then her beta-malina therapy can be changed to an oral beta-malina such as metoprolol tartrate starting at 12.5 mg twice daily and following her cardiac rate and rhythm as needed and adjusting her medication dose as needed. (2) Pulmonary hypertension: PLAN: A transthoracic echocardiogram was repeated. Her estimated RV systolic pressure was reported at approximately 45 mmHg which is somewhat less than her previous study but still elevated. She will need continued pulmonary evaluation and care. (3) Cor pulmonale: PLAN: Again the patient can have cor pulmonale secondary to her marked pulmonary hypertension. This could lead to right heart failure. (4) Right heart failure: PLAN: The patient has been diagnosed in the past with HFpEF. Based upon review of her clinical scenario her heart failure may be secondary to her pulmonary hypertension and cor pulmonale with right heart failure as opposed to left heart failure either systolic or diastolic mediated. For this she will need to continue evaluation care of her underlying pulmonary disease process. Depending upon her volume status she may need diuretic therapy. (5) COVID-19: PLAN: The patient has had COVID-19. She was reassessed this day and was found to be negative by rapid antigen test. (6) Respiratory failure: PLAN: She does need to continue evaluation care and pulmonary support. She may need additional diuretic therapy, depending upon her clinical course, to assist with her volume status and her pulmonary condition. (7) HLD (hyperlipidemia): QUALIFIERS: Hyperlipidemia type: unspecified Qualified Code(s): E78.5 - Hyperlipidemia, unspecified PLAN: The patient should continue lipid evaluation care as deemed appropriate. (8) HTN (hypertension): QUALIFIERS: Hypertension type: essential hypertension Qualified Code(s): I10 - Essential (primary) hypertension PLAN: The patient's blood pressure appears to be somewhat improved. Again it will need to be monitored as it may impact her medication options. Addt'l Comments This note was generated using a voice recognition system and there may be incorrect words, spelling or punctuation that were not noted when reviewing the office note prior to saving.
--- NOTE | 2021-11-02 13:46 | PCM.PN.INT ---
Assessment & Plan Assessment/Plan (1) Respiratory failure: PLAN: RECOMMENDATIONS: 1. Continue AutoPap with sleep until a formal sleep study can be obtained 2. Complete 7 days of antibiotics for aspiration 3. Wean oxygen as tolerated 4. Increase diuresis as tolerated by hemodynamics and renal function 5. Outpatient work-up as described below 6. Will follow peripherally from a pulmonary perspective. Please call with any further issues IMPRESSIONS: 1. Acute combined respiratory failure The patient initially presented to the emergency department from the TCU on October 29 with worsening shortness of breath and hypoxemia. Her respiratory status continued to deteriorate and she eventually became obtunded, requiring transfer to the intensive care unit and subsequent intubation. The etiology for her decompensation is likely multifactorial in nature with decompensated diastolic heart failure and potential pulmonary infectious etiology contributing. The patient also likely has a component of obesity hypoventilation and possible sleep apnea contributing as well. Patient with significant hypoxia overnight, likely secondary to sleep apnea. This would contribute chronically to patient's pulmonary hypertension. Patient can be continued on AutoPap for now. However, ideally patient would have a split-night polysomnogram as an outpatient. Given stability over the last 24 hours, will follow peripherally from a pulmonary perspective. Do anticipate ongoing need of supplemental oxygen secondary to cor pulmonale. 2. Metabolic encephalopathy Resolved. Likely secondary to hypercapnia. Continue supportive measures as noted above. 3. History of severe spinal stenosis/pulmonary hypertension/obesity/generalized debility Complicates care, management, recovery and prognosis. Continue home medications as indicated. Nutrition consultation will be obtained for tube feed recommendations. Patient appears to have a syndromic appearance. Some concern for swallow, so speech therapy is following. Subjective Subjective Patient did okay overnight. Patient did have difficulty tolerating AutoPap, but oxygenation was maintained while this was in place. Patient denies any current chest pain or abdominal pain. Patient continues to have numbness of lower extremities. Patient does continue to have hoarseness Objective Data Objective Data Vital Signs: Vital Signs Temp Pulse Resp BP Pulse Ox 36.7 C 81 18 95/63 99 11/02/21 10:50 11/02/21 11:40 11/02/21 10:50 11/02/21 11:40 11/02/21 10:50 Oxygen Flow Rate (L/min) 3 Oxygen Delivery Method Room Air Weight: 85.5 kg Body Mass Index (BMI) 38.0 Intake & Output: Intake and Output for Last 24 Hours 10/31/21 11/01/21 11/02/21 23:59 23:59 23:59 Intake Total 940 / 940 320 / 560 450 / 450 Output Total 275 / 425 600 / 675 175 / 175 Balance 665 / 515 -280 / -115 275 / 275 Lab / Micro Data Result Diagrams: 11/01/21 03:30 11/02/21 06:35 Labs: Laboratory Results - last 24 hr 11/01/21 17:11: POC Glucose 72 11/01/21 21:29: POC Glucose 76 11/02/21 06:35: Sodium 139, Potassium 4.3, Chloride 94 L, Carbon Dioxide 36.0 H, Anion Gap 9, BUN 42 H, Creatinine 1.38 H, Estim Creat Clear Calc 44.62, Est GFR (MDRD) Af Amer 47 L, Est GFR (MDRD) Non-Af 39 L, BUN/Creatinine Ratio 30.4 H, Glucose 75, Calcium 9.0 11/02/21 06:45: POC Glucose 76 Micro: Microbiology 10/29/21 11:30 Sputum, Induced/Lukens Gram Stain - Final 10/29/21 11:30 Sputum, Induced/Lukens Respiratory Culture - Final 10/31/21 11:35 Nasal Secretion SARS-CoV-2 Antigen (Rapid) - Final 10/29/21 17:20 Urine Catheter - Catheter Legionella Antigen - Final 10/29/21 17:20 Urine Catheter - Catheter Streptococcus pneumoniae Antigen (M - Final 10/29/21 11:30 Mucosa - Nose Respiratory Panel (PCR) - Final Physical Exam Const Constitutional Narrative: Morbidly obese. Some hoarseness with voice HEENT normocephalic and head/scalp atraumatic Mouth: endotracheal tube in place and OG tube in place Eyes PERRL and EOMs intact bilaterally Neck supple Chest inspection of chest normal Resp Auscultation: diminished lung sounds; Negative for rales, rhonchi or wheezes Cardio S1 normal heart sound, S2 normal heart sound, no murmurs, no rub and no gallops Rate: regular rate Rhythm: regular rhythm GI normal to inspection, nondistended, normoactive bowel sounds Extremity General Extremity: edema bilateral lower extremity Skin no rashes or lesions noted Neuro CN's II-XII intact bilaterally, moves all extremities and no focal motor deficits Charges/Coding Visit Charges Inpatient E&M: 00202 Subs Hosp L2
--- NOTE | 2021-11-02 14:13 | PCM.PN.HOSP ---
Subjective Subjective Tolerating 3 L/m NC. Objective Data Objective Data Vital Signs: Vital Signs Temp Pulse Resp BP Pulse Ox 36.7 C 81 18 95/63 99 11/02/21 10:50 11/02/21 11:40 11/02/21 10:50 11/02/21 11:40 11/02/21 10:50 Oxygen Flow Rate (L/min) 3 Oxygen Delivery Method Room Air Weight: 85.5 kg Body Mass Index (BMI) 38.0 Intake & Output: Intake and Output for Last 24 Hours 10/31/21 11/01/21 11/02/21 23:59 23:59 23:59 Intake Total 940 / 940 320 / 560 450 / 450 Output Total 275 / 425 600 / 675 375 / 375 Balance 665 / 515 -280 / -115 75 / 75 Lab / Micro Data Result Diagrams: 11/01/21 03:30 11/02/21 06:35 Labs: Laboratory Results - last 24 hr 11/01/21 17:11: POC Glucose 72 11/01/21 21:29: POC Glucose 76 11/02/21 06:35: Sodium 139, Potassium 4.3, Chloride 94 L, Carbon Dioxide 36.0 H, Anion Gap 9, BUN 42 H, Creatinine 1.38 H, Estim Creat Clear Calc 44.62, Est GFR (MDRD) Af Amer 47 L, Est GFR (MDRD) Non-Af 39 L, BUN/Creatinine Ratio 30.4 H, Glucose 75, Calcium 9.0 11/02/21 06:45: POC Glucose 76 Micro: Microbiology 10/29/21 11:30 Sputum, Induced/Lukens Gram Stain - Final 10/29/21 11:30 Sputum, Induced/Lukens Respiratory Culture - Final 10/31/21 11:35 Nasal Secretion SARS-CoV-2 Antigen (Rapid) - Final 10/29/21 17:20 Urine Catheter - Catheter Legionella Antigen - Final 10/29/21 17:20 Urine Catheter - Catheter Streptococcus pneumoniae Antigen (M - Final 10/29/21 11:30 Mucosa - Nose Respiratory Panel (PCR) - Final Physical Exam Const Constitutional Narrative: lying in bed. no respiratory distress. Resp normal respiratory effort, no retractions, no use of accessory muscles and clear to auscultation bilaterally Cardio regular rate, regular rhythm, S1 normal heart sound and S2 normal heart sound GI normal to inspection, nondistended, normoactive bowel sounds, soft to palpation, non-tender and non-distended Extremity Extremity Narrative: marked digit deformities of fingers and toes. Assessment & Plan Assessment/Plan (1) Acute respiratory failure with hypoxia and hypercapnia: (2) Bilateral pleural effusion: (3) (HFpEF) heart failure with preserved ejection fraction: QUALIFIERS: Heart failure chronicity: acute Qualified Code(s): I50.31 - Acute diastolic (congestive) heart failure PLAN: 1. acute hypoxic and hypercapnic respiratory failure multifactorial extubated 10/31 on empiric amp/sulb, continue through the for aspiration. strep , legionella negative. SCx negative 2. Pleural effusion suspect transudative thoracentesis ordered 3. Acute HFpEF EF 60% off IV furosemide 4. Metabolic encephalopathy resolved 2/2 hypercapnia 5. SVT on IV metoprolol change to PO when able 6. Dysphagia MBS performed, results pending. continue NPO for now. 7. VTE prophylaxis: LMWH Charges/Coding Visit Charges Inpatient E&M: 44651 Subs Hosp L2
--- NOTE | 2021-11-02 16:11 | SP.MBSS_ITS ---
Modified Barium Swallow - Patient Information Study Date: 11/02/21 Study Time: 12:30 Direct Billable Minutes: 150 Total Minutes procedure & reportin Diagnosis: Dysphagia, unspecified (R13.10) Referring Physician: Jc Marin Reason for Referral: Objectively assess risk for aspiration. Medical History: The patient is a 81 year old female with PMH including Acute congestive heart failure, cervical stenosis of spinal canal, recent COVID-19, Diastolic CHF, Bilateral hearing loss, HTN, Hypoxia, Kidney disease, Lumbar stenosis, Morbid ob esity with BMI of 40.0-44.9, and Pneumonia (SEE chart for full H&P). She initially presented to the emergency department from the TCU on October 29 with worsening shortness of breath and hypoxemia. Her respiratory status continued to deteriorate and she eventually became obtunded, requiring transfer to the intensive care unit and subsequent intubation. The etiology for her decompensation is likely multifactorial in nature with decompensated diastolic heart failure and potential pulmonary infectious etiology contributing. The patient also likely has a component of obesity hypoventilation and possible sleep apnea contributing as well. The patient was extubated around 8:00 on 10/31/2021. Pt was referred for speech consult. Per RNSandy, physician had concerns for aspiration pneumonia as contributing factor for respiratory failure. Pt was recommended NPO s/p extubation with sips and chips permitted via tsp supervised after oral care. Referred for MBS study due to SURFACE LOGGING SYSTEMS LOGGER concerns for silent aspiration. Current Diet Ordered: NPO with sips/chips by tsp Mental Status: WNL Respiratory Status: Oxygenating on 3L/M nasal cannula - Penetration-Aspiration Scale Penetration-Aspiration Scale: OBJECTIVE ASSESSMENT OF SWALLOW FUNCTION (QUANTITATIVE ? PER TRIAL): PENETRATION / ASPIRATION SCALE (PADRON): 1 = does not enter airway 2 = enters airway/above vocal folds/ejected 3 = enters airway/above vocal folds/not ejected 4 = enters airway/contacts vocal folds/ejected 5 = enters airway/contacts vocal folds/not ejected 6 = enters airway/below vocal folds/ejected 7 = enters airway/below vocal folds/not ejected despite effort 8 = enters airway/below vocal folds/no effort VIDEOFLOROSCOPIC SCALE SCORE (PADRON): Grade I = aspiration of material that has penetrated into the laryngeal vestibule, intact cough reflex Grade II = aspiration < 10 % of the bolus, intact cough reflex Grade III = aspiration of < 10 % of the bolus, reduced cough reflex or aspiration of > 10 % of the bolus, intact cough reflex Grade IV = aspiration of > 10 % of the bolus, reduced cough reflex - Penetration-Aspiration Scale Score Thin Liquid via teaspoon Result: 1= does not enter airway Thin Liquid via teaspoon Trial 2 Result: 5= enters airways/contacts vocal folds/not ejected - LIKELY SILENT ASPIRATION - Could not view below vocal folds due to pt's body habitus; however, contrast not ejected from laryngeal vestibule. Thin Liquid via small single sip from cup Result: 5= enters airways/contacts vocal folds/not ejected - LIKELY SILENT ASPIRATION - Could not view below vocal folds due to pt's body habitus; however, contrast not ejected from laryngeal vestibule. [place] Thick Liquid via teaspoon Result: 5= enters airways/contacts vocal folds/not ejected - LIKELY SILENT ASPIRATION - Could not view below vocal folds due to pt's body habitus; however, contrast not ejected from laryngeal vestibule. Honey Thick Liquid via teaspoon Result: 1= does not enter airway Pudding Result: 1= does not enter airway Thin Liquid via teaspoon Effortful swallow Result: 1= does not enter airway Thin Liquid via teaspoon Effortful with double swallow Result: 5= enters airways/contacts vocal folds/not ejected - LIKELY SILENT ASPIRATION - Could not view below vocal folds due to pt's body habitus; however, contrast not ejected from laryngeal vestibule. Honey Thick Liquid via teaspoon Effortful double swallow Result: 1= does not enter airway Honey Thick Liquid via teaspoon Effortful double swallow Trial 2 Result: 1= does not enter airway 1/4 Cookie Result: 1= does not enter airway Honey Thick Liquid via teaspoon Effortful double swallow Trial 3 Result: 2= enter airway/above vocal folds/ejected Honey Thick Liquid via teaspoon Effortful double swallow Trial 4 Result: 1= does not enter airway - Oral Phase Labial Seal: No Labial Escape Tongue Control During Bolus Hold: Posterior escape of less than half of bolus Bolus Preparation/Mastication: Slow prolonged chewing/mashing with complete recollection Bolus Transport/Lingual Motion: Delayed initiation of tongue motion Oral Residue: Majority of bolus remaining - Pharyngeal Phase Initiation of Pharyngeal Swallow: Bolus head at posterior laryngeal surgace of epiglottis Soft Palate Elevation: Trace column of contrast/air between soft palate and pharyngeal wall Laryngeal Elevation: Partial superior movement thyroid cart/partial apprx aryt- epig petiole Anterior Hyoid Excursion: Partial anterior movement Epiglottic Movement: No inversion Laryngeal Vestibule Closure at Height of Swallow: Incomplete; narrow column of air/contrast in laryngeal vestibule Pharyngeal Stripping Wave: Present - diminished Pharyngoesophageal Segment Opening: Parital distension and partial duration; parital obstruction of flow Tongue Base Retraction: Narrow column of contrast between tongue base & post. pharyngeal wall Pharyngeal Residue: Collection of residue within or on pharyngeal structures - Esophageal Phase Esophageal Clearance: Esophageal retention w/ retrograde flow through pharyngoesophageal seg - Treatment Strategies Effects of treatment strategies attemped:: Effortful swallow = somewhat effective. Double swallow = effective. Decreased bolus size = effective. Use of straw = pt unable to create lip seal/suction to utilize straw. - Diagnosis/Impression Diagnosis: Severe oropharyngeal phase dysphagia (R13.12) Impression: The patient required a C-arm during fluoroscopy examination due to pt's body habitus. With use of C-arm, SURFACE LOGGING SYSTEMS LOGGER able to view only structures at or above the level of the vocal folds. Could not definitively view aspiration due to limited picture. The patient's oral phase is marked by deficits in bolus control. The patient presented with premature posterior spillage, especially with liquids by cup. She also presents with prolonged mastication and piecemeal deglutition. She required 3 swallows to clear 1/4 cookie from oral cavity. The pharyngeal phase is marked by severe deficits in airway protection, likely due to decreased anterior hyoid excursion, laryngeal elevation, and delayed initiation of swallow onset. The patient also had mild-moderate pharyngeal residues, including residue in the vallecula from retrograde flow of retention of bolus through UES. Although SURFACE LOGGING SYSTEMS LOGGER was unable to view below the vocal folds, highly suspect significant SILENT aspiration of thin and nectar thickened liquids via tsp or cup. The patient had penetration of honey thick liquids via tsp; however, contrast appeared to fully eject. - Recommendations Diet: Puree Textures, Honey-thick Liquids Comment: Effortful swallow on each bite/sip. Compensatory Strategies: Small Bites, Small Sips, Liquid by Teaspoon Only, Slow Rate, Multiple Swallows - At least 2 swallows per each bite/sip., Sitting upright, Remain sitting upright for 30 minutes after PO intake Supervision: 1:1 Close Supervision Recommend Repeat Modified Barium Swallow: Yes - Would recommend repeat MBS study in 2-4 weeks after implementation of oropharyngeal exercise program. Need for Skilled Speech Therapy Services: Yes Comment: Will recommend continued dysphagia therapy to implement oropharyngeal exercise program to improve lingual coordination, anterior hyoid excursion, tongue base retraction, and laryngeal elevation. Pt requires thorough education re: diet re commendations, compensatory strategies, and HIGH aspiration risk. Will recommend monitoring lung sounds closely in consideration of diet tolerance. Would not upgrade patient past minced and moist textures / honey thick liquids without repeat MBS study. If good diet tolerance, would consider pt for a modified FFWP via tsp. Recommended Referrals: GI Consult Education Completed: 1. Described result of evaluation., 3. Pt understands evaluation but refused treatment., 4. Family/caregivers understand evaluation & agree w/ goals & tx plan., 7. Pt requires further education on strategies & risks., 8. Family/caregivers require further education on strategies & risks. - Status Active ST Patient: Active - Contact Information [facility] Speech Therapy:: Edel Dugan M.A. [facility]-[employer]UR[employer] LOGGING SYSTEMS LOGGER Speech Language Pathologist [facility] [phone] 11/02/21 16:32
[2021-11-02] MEDS: Potassium Chloride Oral Tablet 20 MEQ PO (17:16)
[2021-11-03] VITALS (12 sets, daily range): BP systolic 92–99; BP diastolic 51–72; PULSE 85–91; RESP 16–18; TEMP 36.6–37.1; O2SAT 94–98
[2021-11-03] MEDS: Ipratropium/Albuterol Sulfate 3 ML AMPUL.NEB INHALATION ×2 (06:52→12:57)
[2021-11-03] MEDS: Enoxaparin 40 MG/0.4 ML Syringe SC (08:34)
[2021-11-03] MEDS: Potassium Chloride Oral Tablet 20 MEQ PO (08:34)
--- NOTE | 2021-11-03 11:30 | TREXTCAR_ITS ---
Diet 11/02/21 16:09 Diet: Regular - General Food consistency:: Pureed Liquid Consistency:: Honey/Moderately Thick Is pt able to select menu?: Yes Diet Comments: Direct supervision, SIPS BY TSP, double effortful swallows Routine Orders/Code Status O2 Liters per Minute: 2 O2 Frequency: Continuous Keep PO Greater than or Equal to (%): 90 Routine Lab Work: CBC and BMP Code Status: Full Code Therapies Physical Therapy: Eval and Treat Occupational Therapy: Eval and Treat Speech Therapy: Eval and Treat Problem/Diagnosis (1) Acute respiratory failure with hypoxia and hypercapnia: Status: Acute (2) Bilateral pleural effusion: Status: Acute (3) (HFpEF) heart failure with preserved ejection fraction: Status: Acute Allergies/Procedures Done in Hospital Allergies No Known Allergies Allergy (Verified 10/28/21 17:00) Type of Care/Length of Stay Estimated LOS: Convalescent Care Less Than 30 days Type of Care Needed: Skilled Rehab Potential: Good Prognosis: Good Additional Orders/Day of Discharge Day of Discharge: 11/03/21 Dietary and Speech Recommendations Dietitian Recommendations/Changes: As medically indicated, recommend cardiac diet- texture/consistency modifications per AMBULANCE PARAMEDIC. Discharge Plan Admission Admit Date/Time: 10/29/21 06:55 Primary Reason for Your Visit: chf Attending Provider: Jc Marin Primary Care Provider: Momo Carvajal Chi Consulting Providers: Stephen Nath ; Jerry Walton ; Tez Zuleta ; Yodit Mike VACUUM REPAIRER Discharge Orders/Prescriptions Prescriptions: New amoxicillin-pot clavulanate [Augmentin] 875-125 mg tablet 1 tab PO BID Qty: 4 RF: 0 metoprolol tartrate 25 mg Tablet 12.5 mg PO BID Qty: 0 RF: 0 Continued L.acidoph, paracasei,B. lactis 1 EACH capsule 1 ea PO DAILY RF: 0 acetaminophen 500 mg Tablet 1,000 mg PO Q6H PRN PRN (Reason: Pain Score 1-10) Qty: 0 RF: 0 gabapentin 100 mg Capsule 100 mg PO TIDCM 30 Days Qty: 90 RF: 0 menthol-zinc oxide [Calmoseptine] 0.44-20.6 % Ointment 1 applic topical BID Qty: 0 RF: 0 Mineral Oil/Petrolatum,White [Eucerin] 1 applic topical BID Qty: 0 RF: 0 ipratropium-albuterol 0.5 mg-3 mg(2.5 mg base)/3 mL Solution For Nebulization 3 ml INHALATION Q6H PRN (Reason: Shortness Of Breath) RF: 0 albuterol sulfate 2.5 mg /3 mL (0.083 %) Solution For Nebulization 2.5 mg INHALATION Q2H PRN PRN (Reason: Shortness Of Breath) RF: 0 nitroglycerin 0.4 mg Tablet, Sublingual 0.4 mg SUBLINGUAL Q5M PRN (Reason: Chest Pain) RF: 0 nystatin 100,000 unit/gram Powder 1 applic TOPICAL BID RF: 0 senna-docusate sodium Tablet 1 tab PO BID RF: 0 aspirin 81 MG tablet,chewable 81 mg PO DAILY@0800 RF: 0 calcium carbonate-vitamin D3 1 TAB tablet 1 tab PO DAILY RF: 0 Changed furosemide 40 MG tablet 40 mg PO DAILY Qty: 0 RF: 0 Discontinued levofloxacin in D5W [Levaquin in 5 % dextrose] 750 mg/150 mL Piggyback 750 mg IV Q24H RF: 0 potassium chloride 20 mEq Tablet Extended Release 20 meq PO BID RF: 0 lisinopril [Zestril] 5 mg Tablet 5 mg PO DAILY RF: 0 No Action bisacodyl 5 mg Tablet 10 mg PO QHS PRN (Reason: Constipation) RF: 0 Referrals / Follow Up: Stephen Naht MD [STAFF PHYSICIAN] - Within 1 Month Momo Carvajal Chi, MD [Primary Care Provider] - Within 2 Weeks Yodit Mike NP, VACUUM REPAIRER-C [Nurse Practitioner] - Within 1 Month Disposition Disposition (needs filled in before D/C Order can be placed): Group Home Facility
--- NOTE | 2021-11-03 11:37 | DS.PCM_ITS ---
Providers Date of Admission: 10/29/21 Primary Care Physician: Dr. Momo Carvajal MD Consultations 10/30/21 03:02 Consult: Angle Shearer / Pulmonary Medicine Routine Consulting Provider: Pulmonary Medicine eugenia [place] Reason for Consult: acute on chronic hypoxic resp failure EMERGENT Consult: No Notified: Yes Date Notified: 10/30/21 Time Notified: 03:02 Method of Notification: Text 10/31/21 10:31 Consult: Cardiology Routine Consulting Provider: Stephen Nath Reason for Consult: SVT/CHF EMERGENT Consult: No Notified: Yes Date Notified: 10/31/21 Time Notified: 10:54 Method of Notification: Text Reason For Visit: ACUTE ON CHRONIC HYPOXIC RESP FAILURE, Diagnosis Discharge Diagnosis (1) Acute respiratory failure with hypoxia and hypercapnia: Status: Acute Code(s): J96.01 - Acute respiratory failure with hypoxia; J96.02 - Acute respiratory failure with hypercapnia (2) Bilateral pleural effusion: Status: Acute Code(s): J90 - Pleural effusion, not elsewhere classified (3) (HFpEF) heart failure with preserved ejection fraction: Status: Acute Code(s): I50.30 - Unspecified diastolic (congestive) heart failure Qualifiers: Heart failure chronicity: acute Qualified Code(s): I50.31 - Acute diastolic (congestive) heart failure Medications at Discharge Home Medications aspirin 81 mg PO DAILY@0800 07/12/15 calcium carbonate-vitamin D3 1 tab PO DAILY 07/12/15 L.acidoph, paracasei,B. lactis 1 ea PO DAILY 03/22/19 Mineral Oil/Petrolatum,White [Eucerin] 1 applic TOPICAL BID #0 10/26/21 acetaminophen 1,000 mg PO Q6H PRN PRN #0 tab 10/26/21 gabapentin 100 mg PO TIDCM 30 Days #90 cap 10/26/21 menthol-zinc oxide [Calmoseptine] 1 applic TOPICAL BID #0 g 10/26/21 albuterol sulfate 2.5 mg INHALATION Q2H PRN PRN 10/28/21 bisacodyl 10 mg PO QHS PRN 10/28/21 ipratropium-albuterol 3 ml INHALATION Q6H PRN 10/28/21 nitroglycerin 0.4 mg SUBLINGUAL Q5M PRN 10/28/21 nystatin 1 applic TOPICAL BID 10/28/21 senna-docusate sodium 1 tab PO BID 10/28/21 amoxicillin-pot clavulanate [Augmentin] 1 tab PO BID #4 tab 11/03/21 furosemide 40 mg PO DAILY #0 tab 11/03/21 metoprolol tartrate 12.5 mg PO BID #0 tab 11/03/21 Hospital Course Operations None Procedures Intubation Summary of Care Provided Minutes Spent on Discharge: 35 Hospital Course: 1. acute hypoxic and hypercapnic respiratory failure multifactorial extubated 10/31 on empiric amp/sulb, continue augmentin for aspiration. strep , legionella negative. SCx negative follow up with pulm for PSG 2. Pleural effusion suspect transudative thoracentesis ordered 3. Acute HFpEF EF 60% continue daily furosemide follow up with cardiology 4. Metabolic encephalopathy resolved 2/2 hypercapnia 5. SVT on IV metoprolol continue PO metoprolol 6. Dysphagia MBS performed, results pending. pureed, honey thickened liquids with Direct supervision, SIPS BY TSP, double effortful swallows continue speech therapy. Physical Exam Const alert and no apparent distress Resp normal respiratory effort, no retractions, no use of accessory muscles and clear to auscultation bilaterally Cardio regular rate, regular rhythm, S1 normal heart sound and S2 normal heart sound GI normal to inspection, nondistended, normoactive bowel sounds Extremity Extremity Narrative: digit deformities Weight / BMI Weight Weight: 89.074 kg Body Mass Index (BMI) 38.0 ABG / Lab / Microbiology Data Result Diagrams: 11/01/21 03:30 11/02/21 06:35 Microbiology: Microbiology 10/29/21 11:30 Sputum, Induced/[place] Gram Stain - Final 10/29/21 11:30 Sputum, Induced/[place] Respiratory Culture - Final 10/31/21 11:35 Nasal Secretion SARS-CoV-2 Antigen (Rapid) - Final 10/29/21 17:20 Urine Catheter - Catheter Legionella Antigen - Final 10/29/21 17:20 Urine Catheter - Catheter Streptococcus pneumoniae Antigen (M - Final 10/29/21 11:30 Mucosa - Nose Respiratory Panel (PCR) - Final Meaningful Use Info Meaningful Use Diagnoses (Choose all that apply): CHF CHF LILIYA/ARB ordered at discharge?: No Reason LILIYA/ARB not ordered?: Hypotension Documented LVEF (%): 55 Discharge Plan Admission Admit Date/Time: 10/29/21 06:55 Primary Reason for Your Visit: chf Attending Provider: Jc Marin Primary Care Provider: Momo Carvajal Chi Consulting Providers: Stephen Nath ; Jerry Walton ; Tez Zuleta ; Yodit Mike SCIENTIFIC SOFTWARE ENGINEER Discharge Orders/Prescriptions Prescriptions: New amoxicillin-pot clavulanate [Augmentin] 875-125 mg tablet 1 tab PO BID Qty: 4 RF: 0 metoprolol tartrate 25 mg Tablet 12.5 mg PO BID Qty: 0 RF: 0 Continued L.acidoph, paracasei,B. lactis 1 EACH capsule 1 ea PO DAILY RF: 0 acetaminophen 500 mg Tablet 1,000 mg PO Q6H PRN PRN (Reason: Pain Score 1-10) Qty: 0 RF: 0 gabapentin 100 mg Capsule 100 mg PO TIDCM 30 Days Qty: 90 RF: 0 menthol-zinc oxide [Calmoseptine] 0.44-20.6 % Ointment 1 applic topical BID Qty: 0 RF: 0 Mineral Oil/Petrolatum,White [Eucerin] 1 applic topical BID Qty: 0 RF: 0 ipratropium-albuterol 0.5 mg-3 mg(2.5 mg base)/3 mL Solution For Nebulization 3 ml INHALATION Q6H PRN (Reason: Shortness Of Breath) RF: 0 albuterol sulfate 2.5 mg /3 mL (0.083 %) Solution For Nebulization 2.5 mg INHALATION Q2H PRN PRN (Reason: Shortness Of Breath) RF: 0 nitroglycerin 0.4 mg Tablet, Sublingual 0.4 mg SUBLINGUAL Q5M PRN (Reason: Chest Pain) RF: 0 nystatin 100,000 unit/gram Powder 1 applic TOPICAL BID RF: 0 senna-docusate sodium Tablet 1 tab PO BID RF: 0 aspirin 81 MG tablet,chewable 81 mg PO DAILY@0800 RF: 0 calcium carbonate-vitamin D3 1 TAB tablet 1 tab PO DAILY RF: 0 Changed furosemide 40 MG tablet 40 mg PO DAILY Qty: 0 RF: 0 Discontinued levofloxacin in D5W [Levaquin in 5 % dextrose] 750 mg/150 mL Piggyback 750 mg IV Q24H RF: 0 potassium chloride 20 mEq Tablet Extended Release 20 meq PO BID RF: 0 lisinopril [Zestril] 5 mg Tablet 5 mg PO DAILY RF: 0 No Action bisacodyl 5 mg Tablet 10 mg PO QHS PRN (Reason: Constipation) RF: 0 Referrals / Follow Up: Stephen Nath MD [STAFF PHYSICIAN] - Within 1 Month Momo Carvajal Chi, MD [Primary Care Provider] - Within 2 Weeks Yodit Mike NP, SCIENTIFIC SOFTWARE ENGINEER-C [Nurse Practitioner] - Within 1 Month Disposition Disposition (needs filled in before D/C Order can be placed): [facility] Facility Charges/Coding Visit Charges Inpatient E&M: 14966 Disch Hosp
[2021-11-03] MEDS: Metoprolol Tartrate 25 MG Tablet 12.5 MG PO (11:44)
== END 2021-11-03 14:29 | DRG 208 ==
LOC: ED 06:28 → PCU 06:35 → ICU 10-30 04:02 → PCU 11-02 10:43 → ICU 11-02 10:57
PROVIDERS: Internal Medicine; Internal Medicine Critical Care Medicine; Nurse Practitioner Family; Admitting Provider Internal Medicine; Emergency Provider Emergency Medicine; PCP Family Medicine Geriatric Medicine
DX: J96.21 Acute and chronic respiratory failure with hypoxia (principal); I50.33 Acute on chronic diastolic (congestive) heart failure; J69.0 Pneumonitis due to inhalation of food and vomit; G93.41 Metabolic encephalopathy; I47.1 Supraventricular tachycardia; E66.2 Morbid (severe) obesity with alveolar hypoventilation; Z68.41 Body mass index [BMI] 40.0-44.9, adult; I11.0 Hypertensive heart disease with heart failure; J96.22 Acute and chronic respiratory failure with hypercapnia; I50.82 Biventricular heart failure; I27.81 Cor pulmonale (chronic); Z20.822 Contact with and (suspected) exposure to COVID-19; I27.29 Other secondary pulmonary hypertension; E78.5 Hyperlipidemia, unspecified; Q68.8 Other specified congenital musculoskeletal deformities; R13.10 Dysphagia, unspecified; H91.93 Unspecified hearing loss, bilateral; Z79.82 Long term (current) use of aspirin; Z79.899 Other long term (current) drug therapy; Z86.16 Personal history of COVID-19; Z90.5 Acquired absence of kidney; Z87.01 Personal history of pneumonia (recurrent)
CPT/HCPCS: 31500; 31720; 36415; 36592; 36600; 71045; 71275; 74230; 76604; 80048; 80053; 82550; 82803; 82962; 83605; 83615; 83735; 83880; 84156; 84478; 84484; 85025; 85379; 87070; 87205; 87426; 87449; 87633; 92526; 92610; 92611; 93005; 93306; 93971; 94002; 94003; 94640; 94660; 97110; 97163; 97166; 97530; 97802; 97803; 99251; 99283; 99284; J7040; Q9967; A4216; G0463; J0153; J1940; J2405; J3010

== ENCOUNTER 2021-11-03 15:00 | Inpatient (IN) | payer MEDICARE, OTHER, SELFPAY ==
[2021-11-03 15:13] VITALS: BP 102/59; PULSE 97; RESP 20; TEMP 36.6; O2SAT 97; BMI 39.9
--- NOTE | 2021-11-03 15:56 | PCM.HP.STD ---
HPI - General General Date of Admission: 11/03/21 HPI Narrative 10/29/2021 ABRAN SAENZ, is a 81 Female TCU resident weakness secondary to covid19, severe cervical, lumbar spinal stenosis. 10/29/2021 Resident transferred to [facility] Emergency Department with acute respiratory failure with hypoxia, recent aspiration. Troponin negative x 2. Chest X-ray shows congestion, consolidation. Receiving 8 liters oxygen per nasal cannula when awake, desats when asleep. 10/29/2021 Admit to Hospital. IV Lasix for acute on chronic diastolic congestive heart failure. 10/29/2021 Hypoxia, Tachypneic, BiPAP applied. Hypoxic, unresponsive, intubated, transferred to ICU. Unasyn IV for aspiration pneumonia. 10/30/2021 Failed spontaneous breathing trial. Strep, Legionella antigen negative. 10/31/2021 Echo grossly normal left ventricular systolic function. EF 65%. Right ventricular systolic pressure 45mm Hg. 10/31/2021 Extubated, heart rate 160. 10/31/2021 Dr. Nath noted PSVT, responded to IV Adenosine. Consider beta malina if blood pressure tolerates. 11/01/2021 Doing well. 11/02/2021 Oxygen 3 liters per nasal cannula. Unasyn IV thru 11/05/2021 for aspiration pneumonia, sputum culture negative. Metoprolol IV for SVT. Modified barium swallow recommended pureed, honey thickened liquids. 11/03/2021 Admit to TCU with debility, here for rehabilitation, strengthening, prior to discharge home with . If condition worsens, recommend DNRCC, hospice care. COUNTS INCLUDE 234 BEDS AT THE [facility] Medical History (HFpEF) heart failure with preserved ejection fraction Acute congestive heart failure Arthrogryposis Arthrogryposis Bilateral leg weakness Cervical cord myelomalacia Cervical stenosis of spinal canal Cor pulmonale COVID-19 Diastolic CHF Hearing loss, left Hearing loss, right HLD (hyperlipidemia) HTN (hypertension) Hypoxia Kidney disease Lumbar stenosis Morbid obesity with BMI of 40.0-44.9, adult Non-smoker Over 65 years old Pneumonia PSVT (paroxysmal supraventricular tachycardia) Pulmonary hypertension Right heart failure S/p nephrectomy SBO (small bowel obstruction) Sepsis Shortness of breath Single kidney Wears hearing aid in both ears Home Medications aspirin 81 mg PO DAILY@0800 07/12/15 [History Last Taken 10/01/21] calcium carbonate-vitamin D3 1 tab PO DAILY 07/12/15 [History Last Taken 10/01/21] L.acidoph, paracasei,B. lactis 1 ea PO DAILY 03/22/19 [History Last Taken 10/01/21] acetaminophen 1,000 mg PO Q6H PRN PRN #0 tab 10/26/21 [Rx Last Taken Unknown] albuterol sulfate 2.5 mg INHALATION Q2H PRN PRN 10/28/21 [History Last Taken Unknown] ipratropium-albuterol 3 ml INHALATION Q6H PRN 10/28/21 [History Last Taken Unknown] nitroglycerin 0.4 mg SUBLINGUAL Q5M PRN 10/28/21 [History Last Taken Unknown] nystatin 1 applic TOPICAL BID 10/28/21 [History Last Taken Unknown] senna-docusate sodium 1 tab PO BID 10/28/21 [History Last Taken Unknown] Mineral Oil/Petrolatum,White [Eucerin] 1 applic TOPICAL BID 11/03/21 [History Last Taken Unknown] amoxicillin-pot clavulanate [Augmentin] 1 tab PO BID 11/03/21 [History Last Taken Unknown] furosemide 40 mg PO DAILY #0 tab 11/03/21 [Rx Last Taken 10/01/21] gabapentin 100 mg PO TIDCM 11/03/21 [History Last Taken Unknown] menthol-zinc oxide [Calmoseptine] 1 applic TOPICAL BID 11/03/21 [History Last Taken Unknown] metoprolol tartrate 12.5 mg PO BID 11/03/21 [History Last Taken Unknown] Allergy/AdvReac Type Severity Reaction Status Date / Time No Known Allergies Allergy Verified 10/28/21 17:00 Surgical History H/O section History of orthopedic surgery S/p nephrectomy Status post laparoscopy Social History household members: spouse Smoking Status: Never smoker alcohol intake: never substance use type: does not use Vital Signs Vital Signs Vital Signs: 11/03/21 15:13 Temperature 97.9 F Temperature Source Temporal Pulse Rate 97 Respiratory Rate 20 H Blood Pressure 102/59 L Blood Pressure Mean 73 Blood Pressure Source Monitor Blood Pressure Position Semi-Fowlers Blood Pressure Location Right Arm Pulse Ox 97 Oxygen Delivery Method Nasal Cannula Oxygen Flow Rate (L/min) 3 Weight Weight: 86.6 kg Body Mass Index (BMI) 39.9 Results Lab / Micro Data Result Diagrams: 11/04/21 06:50 11/04/21 06:50 Assessment & Plan Assessment/Plan (1) Debility: (2) Acute respiratory failure with hypoxia: (3) Aspiration pneumonia: (4) Dysphagia: (5) Acute on chronic diastolic congestive heart failure: (6) Supraventricular tachycardia: (7) Bilateral pleural effusion: (8) Arthrogryposis: (9) Hypertension: (10) Hyperlipidemia: (11) Edema: (12) Pulmonary hypertension: (13) Obstructive sleep apnea: PLAN: 81 year old female with below past medical history hospitalized for acute respiratory failure with hypoxia requiring intubation secondary to aspiration pneumonia, acute on chronic diastolic congestive heart failure, recent covid19, complicated by untreated obstructive sleep apnea, admitted to TCU with debility, here for rehabilitation, strengthening, prior to discharge home with . If condition worsens, recommend DNRCC, hospice care. Debility - PT/OT. Dysphagia - ST. Pain - Tylenol 1000mg q6h prn pain (1-10). Bowel - Senna/colace 1 tablet bid, Dulcolax 5mg qhs prn. Adult immunization - Administer prevnar 13, pneumovax 23, fluzone, covid19 vaccine as appropriate. DVT prophylaxis - Hold anemia. Aspiration pneumonia - Augmentin 875mg bid x 2 days. Supraventricular tachycardia - Metoprolol 12.5mg bid. Chronic diastolic congestive heart failure - Metoprolol 12.5mg bid, Lasix 40mg daily. GI prophylaxis - Lactubacillus 1 tablet daily. Neuropathic pain - Gabapentin 100mg tid. Skin irritation - Calmoseptine topical bid, Eucerin topical bid. Shortness of breath - Duoneb 3ml q6h prn, Albuterol 2.5mg Q2h prn. Tinea Corporis - Nystatin powder topical bid. Coronary artery disease - Metoprolol 12.5mg bid, aspirin 81mg daily, , NTG 0.4mg q5m prn. Calcium deficiency - Calcium D daily. No ROS or physical exam because resident was not seen.
[2021-11-03] MEDS: Amox/Clavulanate 875 MG Tablet PO (17:51)
[2021-11-03] MEDS: Gabapentin 100 MG Capsule PO (17:52)
[2021-11-03] MEDS: Senna/Docusate Sodium 1 Tablet PO (17:52)
[2021-11-03] MEDS: Menthol/Lanolin/Calamine/Znox 113 GM Tube 1 APPLIC TOPICAL (18:03)
[2021-11-03] MEDS: Nystatin Powder 15gm Bottle 1 APPLIC TOPICAL (18:08)
--- NOTE | 2021-11-03 22:00 | NURSING ---
Patient placed on cpap at bedtime, called out few minutes later as patient was saying she couldn't tolerate wearing mask, placed back on 3L NC.
[2021-11-04 05:55] VITALS: BP 105/49; PULSE 89
[2021-11-04 05:56] VITALS: PULSE 89
[2021-11-04] MEDS: Metoprolol Tartrate 25 MG Tablet 12.5 MG PO ×2 (05:56→17:39)
[2021-11-04] MEDS: Furosemide 40 MG Tablet PO (05:56)
[2021-11-04] MEDS: Senna/Docusate Sodium 1 Tablet PO ×2 (05:57→17:40)
[2021-11-04] MEDS: Menthol/Lanolin/Calamine/Znox 113 GM Tube 1 APPLIC TOPICAL ×2 (06:01→12:54)
[2021-11-04] MEDS: Nystatin Powder 15gm Bottle 1 APPLIC TOPICAL ×2 (06:08→12:54)
[2021-11-04 07:02] LABS: Absolute Lymphocyte Count 0.67 X10^3/uL (0.83-4.51); Basophil# 0.04 X10^3/uL; Basophil% 0.6 % (0-1); Eosinophil# 0.22 X10^3/uL; Eosinophils% 3.2 % (0-5); Hematocrit 30.1 % (37-47); Hemoglobin 8.9 g/dL (12.0-15.0); Lymphocyte # 0.67 X10^3/ul (0.83-4.51); Lymphocyte % 9.9 % (19-41); Mean Corp Hgb Conc 29.6 g/dL (32-36); Mean Corpuscular Hgb 30.3 pg (27.0-32.0); Mean Corpuscular Volume 102.4 fL (81-99); Monocyte# 0.81 X10^3/uL; NRBC Flagged by Analyzer 0 % (0-5); Neutrophil # 4.98 X10^3/uL (2.7-7.7); Neutrophil % 73.6 % (47-70); Platelet Count 301 K/mm3 (150-450); RBC Distribution Width CV 15.1 % (11.6-14.6); RBC Distribution Width SD 57.2 fl (35.1-43.9); Red Blood Count 2.94 M/mm3 (4.2-5.4); White Blood Count 6.8 K/mm3 (4.4-11.0)
[2021-11-04 07:23] LABS: Anion Gap 7 (5-15); BUN 33 mg/dL (7-18); BUN/Creat Ratio 27.3 RATIO (10-20); Calcium,Total 8.5 mg/dL (8.5-10.1); Chloride 95 mmol/L (98-107); Creatinine, Serum 1.21 mg/dL (0.55-1.02); EST Glomerular Filtration Rate 46 mL/min (>60); Est Glom Filt Rate - Afr Amer 55 mL/min (>60); Estimated Creatinine Clearance 23.38 ml/min; Glucose 112 mg/dL (74-106); Potassium 3.3 mmol/L (3.5-5.1); Sodium Level 143 mmol/L (136-145)
[2021-11-04] MEDS: Gabapentin 100 MG Capsule PO ×3 (08:46→17:39)
[2021-11-04] MEDS: Amox/Clavulanate 875 MG Tablet PO ×2 (08:47→17:41)
[2021-11-04] MEDS: Aspirin 81 MG TAB.CHEW PO (08:47)
[2021-11-04] MEDS: Calcium Carb/Vitamin D 1 TABLET Tablet PO (08:48)
[2021-11-04] MEDS: CLARIFY ORDER NOTE ×2 (09:25→12:55)
[2021-11-04] MEDS: Potassium Chloride Oral Tablet 20 MEQ PO (12:43)
[2021-11-04] MEDS: 0.9% Saline Lock 10 ML Syringe IV (13:00)
[2021-11-04 15:36] VITALS: BP 101/56; PULSE 86; RESP 19; TEMP 36.3; O2SAT 98
[2021-11-04 17:39] VITALS: PULSE 86
[2021-11-04 23:15] VITALS: PULSE 86; RESP 18
[2021-11-04] MEDS: Albuterol 2.5 MG/3 ML VIAL.NEB. INHALATION (23:15)
--- NOTE | 2021-11-05 01:20 | NURSING ---
Pt called out at 2300 with c/o of SOB. This nurse in to assess, pt appears to be using accessory muscles and tachypneic. breathing and lungs have a strong crackle/ gurgle sound to them. HOB raised from flat to about 30 deg position, Spo2 was low to mid 80s on 3 L NC. Bumped pt up to 4L. Pt reports, feeling like shes drowning, she has currently started on honey thickened liquids along with a puree diet. I asked if she has been following the new orders or if she had been still drinking thin liquids. She confirms she has been drinking thin liquids that, it's too hard to drink honey thickened and it doesn't taste the same. Education provided about how she has aspiration pneumonia and the importance to continue drinking the thickened fluids not the thin. Pulmonary was called and up to give breathing tx to help. O2 improved from tx, Spo2 held at 90-92%, but if she starts to relax and breath through her mouth she starts to drop. rechecked Spo2 at midnight and pt was in 80s, bumped her to 5L and is now stat at 90% while resting. Pt refusing to where trilogy and RT reports no orders have been given to continue, note left for dr, will to continue to monitor.
[2021-11-05 05:47] VITALS: BP 111/64; PULSE 94
[2021-11-05] MEDS: Metoprolol Tartrate 25 MG Tablet 12.5 MG PO (05:47)
[2021-11-05] MEDS: Senna/Docusate Sodium 1 Tablet PO (05:47)
[2021-11-05] MEDS: Furosemide 40 MG Tablet PO (05:48)
[2021-11-05] MEDS: Menthol/Lanolin/Calamine/Znox 113 GM Tube 1 APPLIC TOPICAL (05:49)
[2021-11-05] MEDS: Nystatin Powder 15gm Bottle 1 APPLIC TOPICAL (05:49)
[2021-11-05 06:55] VITALS: O2SAT 93
[2021-11-05] MEDS: Gabapentin 100 MG Capsule PO (08:43)
[2021-11-05] MEDS: Calcium Carb/Vitamin D 1 TABLET Tablet PO (08:43)
[2021-11-05] MEDS: Potassium Chloride Oral Tablet 20 MEQ PO (08:43)
[2021-11-05] MEDS: Aspirin 81 MG TAB.CHEW PO (08:43)
[2021-11-05] MEDS: Iron Polysaccharide Complex 150 MG CAPSULE PO (08:44)
[2021-11-05] MEDS: Amox/Clavulanate 875 MG Tablet PO (08:44)
--- NOTE | 2021-11-05 11:36 | NURSING ---
Addendum entered by Mady Stover 11/05/21 12:01: updated Dr Carvajal. states if pt continues to get worse, no improvement, send to ER. updated . Addendum entered by Mady Stover 11/05/21 11:40: respiratory here now applying autopap machine, not trilogy. sat 90% at this time. will need much encouragement to keep on per . states she not in her right mind right now Original Note: dr carvajal updated that pt sat 88-90% on 5 liters. pt mouth breather, she did want to know why she so sleepy today. pt has trilogy machine in room but did not wear lastnight according to night coordinator staff d/t no order. new order to apply trilogy if pt will wear it. states pt had been refusing to wear pap machines previously. at bedside.
[2021-11-05 11:40] VITALS: PULSE 88; RESP 16; O2SAT 90
[2021-11-05] MEDS: Ipratropium/Albuterol Sulfate 3 ML AMPUL.NEB INHALATION (11:40)
--- NOTE | 2021-11-05 12:02 | CPS ---
Pt was placed on [employer] AutoPap machine post aerosol rx with 5 lpm bleed in. Saturation 90-91%.
--- NOTE | 2021-11-05 12:29 | NURSING ---
pt c/o needing to spit some phegm out. removed autopap briefly and pt able to bring mucus out with tongue. thick and brownish color. mask reapplied. sat 93% on autopap w/5 liters bled in. pt able to answer questions. pt incont of stool, incont care provided. markos applied. pt resting in bed, HOB elevated. remains at bedside. pt verbalized understanding of needing to keep mask on today per RT.
[2021-11-05 12:40] VITALS: BP 107/61; PULSE 81; RESP 20; TEMP 36.7; O2SAT 89
--- NOTE | 2021-11-05 13:29 | NURSING ---
pt sat 88% on autopap, placed on bipap to ER for transport. pt more lethargic than previously. pt neice in room and notified via cellphone. opens eyes to stimuli but no verbal response. RT attempted blood gases x3 unsuccessful. off to ER via bed.
--- NOTE | 2021-11-05 18:03 | DS.PCM_ITS ---
Providers Date of Admission: 11/03/21 Primary Care Physician: Dr. Momo Carvajal MD Reason For Visit: ACUTE ON CHRONIC RESPIRATORY FAILURE Diagnosis Discharge Diagnosis (1) Debility: Status: Acute Code(s): R53.81 - Other malaise (2) Acute respiratory failure with hypoxia: Status: Acute Code(s): J96.01 - Acute respiratory failure with hypoxia (3) Aspiration pneumonia: Status: Acute Code(s): J69.0 - Pneumonitis due to inhalation of food and vomit Qualifiers: Aspiration pneumonia type: unspecified Laterality: bilateral Lung location: unspecified part of lung Qualified Code(s): J69.0 - Pneumonitis due to inhalation of food and vomit (4) Dysphagia: Status: Acute Code(s): R13.10 - Dysphagia, unspecified Qualifiers: Dysphagia type: unspecified Qualified Code(s): R13.10 - Dysphagia, unspecified (5) Acute on chronic diastolic congestive heart failure: Status: Chronic Code(s): I50.33 - Acute on chronic diastolic (congestive) heart failure (6) Supraventricular tachycardia: Status: Acute Code(s): I47.1 - Supraventricular tachycardia (7) Bilateral pleural effusion: Status: Acute Code(s): J90 - Pleural effusion, not elsewhere classified (8) Arthrogryposis: Status: Acute Code(s): Q68.8 - Other specified congenital musculoskeletal deformities (9) Hypertension: Status: Chronic Code(s): I10 - Essential (primary) hypertension (10) Hyperlipidemia: Status: Acute Code(s): E78.5 - Hyperlipidemia, unspecified (11) Edema: Status: Acute Code(s): R60.9 - Edema, unspecified (12) Pulmonary hypertension: Status: Acute Code(s): I27.20 - Pulmonary hypertension, unspecified (13) Obstructive sleep apnea: Status: Acute Code(s): G47.33 - Obstructive sleep apnea (adult) (pediatric) Medications at Discharge Home Medications aspirin 81 mg PO DAILY@0800 07/12/15 calcium carbonate-vitamin D3 1 tab PO DAILY 07/12/15 L.acidoph, paracasei,B. lactis 1 ea PO DAILY 03/22/19 acetaminophen 1,000 mg PO Q6H PRN PRN #0 tab 10/26/21 albuterol sulfate 2.5 mg INHALATION Q2H PRN PRN 10/28/21 ipratropium-albuterol 3 ml INHALATION Q6H PRN 10/28/21 nitroglycerin 0.4 mg SUBLINGUAL Q5M PRN 10/28/21 nystatin 1 applic TOPICAL BID 10/28/21 senna-docusate sodium 1 tab PO BID 10/28/21 Mineral Oil/Petrolatum,White [Eucerin] 1 applic TOPICAL BID 11/03/21 amoxicillin-pot clavulanate [Augmentin] 1 tab PO BID 11/03/21 furosemide 40 mg PO DAILY #0 tab 11/03/21 gabapentin 100 mg PO TIDCM 11/03/21 menthol-zinc oxide [Calmoseptine] 1 applic TOPICAL BID 11/03/21 metoprolol tartrate 12.5 mg PO BID 11/03/21 Hospital Course Operations None Procedures None Summary of Care Provided Minutes Spent on Discharge: 30 Hospital Course: 81 year old female with below past medical history hospitalized for acute respiratory failure with hypoxia requiring intubation secondary to aspiration pneumonia, acute on chronic diastolic congestive heart failure, recent covid19, complicated by untreated obstructive sleep apnea, admitted to TCU with debility, here for rehabilitation, strengthening, prior to discharge home with . If condition worsens, recommend DNRCC, hospice car e. 11/05/2021 Resident respiratory status worsened, unable to maintain oxygen saturation despite Trilogy. I have spoke with resident spouse Sebas, resident daughter Saúl about resident dying. I have told them resident's body unable to overcome combination of acute respiratory failure with hypoxia, aspiration pneumonia, acute on chronic diastolic congestive heart failure, weakness secondary to severe cervical, lumbar spinal stenosis, arthrogryposis, and recent covid 19 breakthrough infeciton. I have recommended Sebas take resident home with hospice to prevent prolonging her suffering. Unfortunately, family not ready to accept resident's impending . 10/26/2021 Discharge to [facility] Emergency Department for evaluation, admission. As resident's primary care doctor, I recommend hospice care. Resident's only wish has been to see her grandchildren. If she was at home, she would be able to see her grandchildren, and have time to say goodbye. Weight / BMI Weight Weight: 86.6 kg Body Mass Index (BMI) 39.9 ABG / Lab / Microbiology Data Result Diagrams: 11/04/21 06:50 11/04/21 06:50 ABG: ABG 11/05/21 14:00 Specimen Type Cancelled Sample Site Cancelled pH Cancelled Bicarbonate Actual Cancelled Total CO2 Cancelled Base Excess Cancelled O2 Saturation Cancelled O2 % Cancelled ABG pCO2 Cancelled ABG pO2 Cancelled Ivan Test Cancelled Respiration Rate Cancelled O2 Delivery Device Cancelled Liter Flow Cancelled Minute Volume Cancelled Vent Mode Cancelled Inspiratory Time Cancelled Expiratory Time Cancelled Tidal Volume Cancelled Mean Airway Pressure Cancelled POC PEEP Cancelled Peak Inspir Pressure Cancelled POC Pressure Suppt Cancelled Pressure Control Cancelled Pressure High Cancelled Pressure Low Cancelled Time High Cancelled Time Low Cancelled EPAP Cancelled IPAP Cancelled Blood Gas Comments Cancelled Crit Call To/Read Back Cancelled Blood Gas Notified Whom Cancelled Blood Gas Notified Time Cancelled Clinical Comments Cancelled D/C Instructions Discharge Diet: No restrictions Discharge Activity: Return to Normal Activity Weight Bearing Status: Weight bearing as tolerated Additional Instructions: Discharge to [facility] Emergency Department for evaluation, admission. Meaningful Use Info Meaningful Use Diagnoses (Choose all that apply): None applicable Discharge Plan Admission Admit Date/Time: 11/03/21 15:00 Primary Reason for Your Visit: Debility. Attending Provider: Momo Carvajal Chi Primary Care Provider: Momo Carvajal Chi Instructions Additional Instructions / Restrictions: Discharge to [facility] Emergency Department for evaluation, admission. Recommend home with hospice as soon as possible. Discharge Orders/Prescriptions Prescriptions: No Action L.acidoph, paracasei,B. lactis 1 EACH capsule 1 ea PO DAILY RF: 0 acetaminophen 500 mg Tablet 1,000 mg PO Q6H PRN PRN (Reason: Pain Score 1-10) Qty: 0 RF: 0 ipratropium-albuterol 0.5 mg-3 mg(2.5 mg base)/3 mL Solution For Nebulization 3 ml INHALATION Q6H PRN (Reason: Shortness Of Breath) RF: 0 albuterol sulfate 2.5 mg /3 mL (0.083 %) Solution For Nebulization 2.5 mg INHALATION Q2H PRN PRN (Reason: Shortness Of Breath) RF: 0 nitroglycerin 0.4 mg Tablet, Sublingual 0.4 mg SUBLINGUAL Q5M PRN (Reason: Chest Pain) RF: 0 nystatin 100,000 unit/gram Powder 1 applic TOPICAL BID RF: 0 senna-docusate sodium Tablet 1 tab PO BID RF: 0 furosemide 40 MG tablet 40 mg PO DAILY Qty: 0 RF: 0 gabapentin 100 mg capsule 100 mg PO TIDCM RF: 0 amoxicillin-pot clavulanate [Augmentin] 875-125 mg tablet 1 tab PO BID RF: 0 metoprolol tartrate 25 mg tablet 12.5 mg PO BID RF: 0 menthol-zinc oxide [Calmoseptine] 0.44-20.6 % ointment 1 applic topical BID RF: 0 Mineral Oil/Petrolatum,White [Eucerin] 1 applic topical BID RF: 0 aspirin 81 MG tablet,chewable 81 mg PO DAILY@0800 RF: 0 calcium carbonate-vitamin D3 1 TAB tablet 1 tab PO DAILY RF: 0 Disposition Disposition (needs filled in before D/C Order can be placed): Acute Care [facility]osp [facility]
--- NOTE | 2021-11-16 09:53 | MDS.RN ---
Information for the mds was obtained from review of the clinical record, interview of resident, staff, and direct observation of resident's care.
== END 2021-11-05 13:30 | disposition short-term general hospital (02) | DRG 177 ==
PROVIDERS: Admitting Provider Family Medicine Geriatric Medicine; PCP Family Medicine Geriatric Medicine; Visit Provider Family Medicine Geriatric Medicine
DX: J69.0 Pneumonitis due to inhalation of food and vomit (principal); J96.01 Acute respiratory failure with hypoxia; I50.32 Chronic diastolic (congestive) heart failure; I47.1 Supraventricular tachycardia; I25.10 Atherosclerotic heart disease of native coronary artery without angina pectoris; B35.4 Tinea corporis; G47.33 Obstructive sleep apnea (adult) (pediatric); M48.061 Spinal stenosis, lumbar region without neurogenic claudication; Q68.8 Other specified congenital musculoskeletal deformities; E78.5 Hyperlipidemia, unspecified; I11.0 Hypertensive heart disease with heart failure; E66.01 Morbid (severe) obesity due to excess calories; Z68.39 Body mass index [BMI] 39.0-39.9, adult; I27.20 Pulmonary hypertension, unspecified; Z86.16 Personal history of COVID-19; Z79.899 Other long term (current) drug therapy; Z79.82 Long term (current) use of aspirin; R13.10 Dysphagia, unspecified
CPT/HCPCS: 80048; 85025; 92526; 92610; 94640; 94660; 97162; 97166; 97802; A4216

== ENCOUNTER 2021-11-05 13:37 | Inpatient (IN) | payer MEDICARE, OTHER, SELFPAY ==
[2021-11-05] VITALS (16 sets, daily range): BP systolic 82–111; BP diastolic 47–77; PULSE 72–98; RESP 14–32; TEMP 36.1–36.7; O2SAT 93–100; BMI 41.8; BMI 39.6
--- NOTE | 2021-11-05 13:56 | CT_ITS ---
INDICATION: altered LOC EXAMINATION: CT BRAIN - CT Head or Brain W/O Contrast Injection TECHNIQUE: Multiple axial images were obtained of the head without intravenous contrast. A radiation dose optimization technique was used for this scan. IV Contrast dosage and agent: None. COMPARISON: No previous imaging for comparison. FINDINGS: FINDINGS: HEMISPHERES: 1. The cerebral parenchyma, ventricular system, subarachnoid spaces have normal configuration. 2. There are mild involutional changes and mild chronic deep white matter changes. 3. No mass, hemorrhage, or acute territorial infarct. CEREBELLUM - BRAINSTEM: The cerebellum, brainstem, basilar and suprasellar cisterns have normal appearance. No Chiari malformation. There is significant degenerative change likely due to inflammatory pannus at the C1-C2 articulation with significant deformity of the anterior epidural space and displacement of the spinal cord at the cervical medullary junction. There is incomplete fusion posterior arch of C1. PITUITARY: Infundibulum and pituitary have normal configuration. Midline structures appear normal. CSF SPACES: Appropriate for age. No hydrocephalus. Basal cisterns are patent. VESSELS: 1. No significant vascular calcifications in the cavernous carotid vessels. 2. No hyperdense vascular signs noted.. ORBITS AND PARANASAL SINUSES: 1. Normal appearance of the bony orbits. Normal appearance of the globes and retrobulbar soft tissues.. 2. Paranasal sinuses are clear. BONY ELEMENTS: Bony elements of the cranial vault, facial skeleton and skull base have normal appearance. SCALP AND SOFT TISSUES: Normal appearance of the soft tissues of the scalp and the visualized face OTHER: None ASPECTS Score for Acute Strokes: 10 CT/Brain/Head without Contrast IMPRESSION: 1. Diffuse involutional changes and chronic microvascular deep white matter disease. 2. No mass, hemorrhage, or acute territorial infarct. 3. Marked soft tissue thickening likely inflammatory pannus at the C1-ARCHITECTURAL DESIGNER articulation with deformity of the anterior epidural space at the cervical medullary junction with displacement of the spinal cord. Electronically Signed: Ryan Mark MD at 16:03 EST Tel , Service support ,
--- NOTE | 2021-11-05 13:57 | EKG12_ITS ---
Test Reason : Blood Pressure : / mmHG Vent. Rate : 089 BPM Atrial Rate : 089 BPM P-R Int : 194 ms QRS Dur : 110 ms QT Int : 370 ms P-R-T Axes : 056 084 -18 degrees QTc Int : 450 ms Normal sinus rhythm Low voltage QRS Borderline ECG Confirmed by ALEKSANDAR PRYOR, BRETT ([id number]), senior editor ROSANA NIETO ([id number]) on 11/07/2021 10:03:55 AM Referred By: JESSICA Confirmed By:BRETT HUERTAS MD
[2021-11-05 14:33] LABS: Absolute Lymphocyte Count 0.34 X10^3/uL (0.83-4.51); Absolute Neutrophil Count 6.6 X10^3/uL (2.0-7.7); Basophil# 0.03 X10^3/uL; Basophil% 0.4 % (0-1); Eosinophil# 0.03 X10^3/uL; Eosinophils% 0.4 % (0-5); Hematocrit 32.6 % (37-47); Hemoglobin 9.4 g/dL (12.0-15.0); Lymphocyte # 0.34 X10^3/ul (0.83-4.51); Lymphocyte % 4.4 % (19-41); Mean Corp Hgb Conc 28.8 g/dL (32-36); Mean Corpuscular Hgb 30.6 pg (27.0-32.0); Mean Corpuscular Volume 106.2 fL (81-99); Monocyte# 0.54 X10^3/uL; NRBC Flagged by Analyzer 0 % (0-5); Neutrophil # 6.63 X10^3/uL (2.7-7.7); Neutrophil % 86.1 % (47-70); POSITIVE DIFFERENTIAL YES; Platelet Count 340 K/mm3 (150-450); RBC Distribution Width CV 15.2 % (11.6-14.6); RBC Distribution Width SD 59.6 fl (35.1-43.9); Red Blood Count 3.07 M/mm3 (4.2-5.4); White Blood Count 7.7 K/mm3 (4.4-11.0)
[2021-11-05 14:34] LABS: Differential Indicated SCAN CRITERIA MET
[2021-11-05 14:41] LABS: Prothrombin Time (Protime)PT. 12.4 SECONDS (11.7-14.9)
[2021-11-05 14:42] LABS: Partial Thromboplast Time 28.6 Seconds (24.1-36.2)
[2021-11-05 14:49] LABS: BNP,B-Type NATRIURETIC PEPTIDE 1834.7 pg/mL (0-100)
[2021-11-05 14:51] LABS: Differential Comment SCANNED
[2021-11-05 14:53] LABS: ALB/GLOB Ratio 0.6 RATIO (0.9-2.4); AST(SGOT) 15 U/L (15-37); Alanine Aminotransfer ALT/SGPT 13 U/L (13-56); Albumin, Serum 2.3 g/dL (3.2-5.0); Alkaline Phosphatase 61 U/L (45-117); Anion Gap 5 (5-15); BUN 36 mg/dL (7-18); BUN/Creat Ratio 34.6 RATIO (10-20); Calcium,Total 9.4 mg/dL (8.5-10.1); Chloride 98 mmol/L (98-107); Creatinine, Serum 1.04 mg/dL (0.55-1.02); EST Glomerular Filtration Rate 54 mL/min (>60); Est Glom Filt Rate - Afr Amer 66 mL/min (>60); Estimated Creatinine Clearance 62.87 ml/min; Globulin 3.8 g/dL (2.2-4.2); Glucose 156 mg/dL (74-106); Lactic Acid 0.4 mmol/L (0.4-1.9); Potassium 3.9 mmol/L (3.5-5.1); Protein, Total 6.1 g/dL (6.4-8.2); Sodium Level 142 mmol/L (136-145); Troponin-I HS 57 pg/mL (3.0-54.0)
--- NOTE | 2021-11-05 14:54 | RAD_ITS ---
INDICATION: hypoxia EXAMINATION/TECHNIQUE: X-RAY - XR Chest 1 View COMPARISON: 10/29/2021 FINDINGS: LIFE-SUPPORT AND LINES: 1. There is been interval removal of the ET tube and NG tube. 2. LEFT PIC catheter projects along the course of the SVC in normal position. 3. No pneumothorax HEART AND VESSELS: Cardiac silhouette is large without change, there is vascular congestion. LUNGS AND PLEURAL SPACES: There is worsening bibasilar infiltrate, developing areas of consolidation, and worsening bilateral effusions. No pulmonary mass is noted. MEDIASTINUM AND HILAR REGIONS: No masses adenopathy noted. No areas of calcification. Visualized upper airway is normal in position. BONY ELEMENTS: No acute bony changes noted. RAD/Chest 1 View (Portable) IMPRESSION: 1. Interval removal of ET tube and NG tube. LEFT PIC catheter projects in normal position. 2. No pneumothorax. 3. Stable cardiomegaly and vascular congestion. 4. Worsening bibasilar infiltrates with developing areas of consolidation and developing small to moderate-sized bilateral effusions. Electronically Signed: Ryan Mark MD at 16:45 EST Tel , Service support ,
--- NOTE | 2021-11-05 15:03 | CPS ---
Pt transported to and from CT while on Bipap. Pt bill transport and CT well while on Bipap. Saturation 97-99%
--- NOTE | 2021-11-05 15:14 | EDS_ITS ---
HPI History of Present Illness Chief Complaint: Unresponsive Informant: spouse/S.O. Narrative Narrative: 81-year-old female is brought to the emergency department from the TCU. Patient was recently admitted for spinal stenosis and developed respiratory failure and was intubated in the ICU. She was having difficulty swallowing. Her states that yesterday she told him she did not want to be intubated again. She was noted to become hypoxemic and unresponsive today. [facility] Medical History (HFpEF) heart failure with preserved ejection fraction Acute congestive heart failure Arthrogryposis Arthrogryposis Bilateral leg weakness Cervical cord myelomalacia Cervical stenosis of spinal canal Cor pulmonale COVID-19 Diastolic CHF Hearing loss, left Hearing loss, right HLD (hyperlipidemia) HTN (hypertension) Hypoxia Kidney disease Lumbar stenosis Morbid obesity with BMI of 40.0-44.9, adult Non-smoker Over 67 years old Pneumonia PSVT (paroxysmal supraventricular tachycardia) Pulmonary hypertension Right heart failure S/p nephrectomy SBO (small bowel obstruction) Sepsis Shortness of breath Single kidney Wears hearing aid in both ears Home Medications aspirin 81 mg PO DAILY@0800 07/12/15 [History Last Taken 10/01/21] calcium carbonate-vitamin D3 1 tab PO DAILY 07/12/15 [History Last Taken 10/01/21] L.acidoph, paracasei,B. lactis 1 ea PO DAILY 03/22/19 [History Last Taken 10/01/21] acetaminophen 1,000 mg PO Q6H PRN PRN #0 tab 10/26/21 [Rx Last Taken Unknown] albuterol sulfate 2.5 mg INHALATION Q2H PRN PRN 10/28/21 [History Last Taken Unknown] ipratropium-albuterol 3 ml INHALATION Q6H PRN 10/28/21 [History Last Taken Unknown] nitroglycerin 0.4 mg SUBLINGUAL Q5M PRN 10/28/21 [History Last Taken Unknown] nystatin 1 applic TOPICAL BID 10/28/21 [History Last Taken Unknown] senna-docusate sodium 1 tab PO BID 10/28/21 [History Last Taken Unknown] Mineral Oil/Petrolatum,White [Eucerin] 1 applic TOPICAL BID 11/03/21 [History Last Taken Unknown] amoxicillin-pot clavulanate [Augmentin] 1 tab PO BID 11/03/21 [History Last Taken Unknown] furosemide 40 mg PO DAILY #0 tab 11/03/21 [Rx Last Taken 10/01/21] gabapentin 100 mg PO TIDCM 11/03/21 [History Last Taken Unknown] menthol-zinc oxide [Calmoseptine] 1 applic TOPICAL BID 11/03/21 [History Last Taken Unknown] metoprolol tartrate 12.5 mg PO BID 11/03/21 [History Last Taken Unknown] Allergy/AdvReac Type Severity Reaction Status Date / Time No Known Allergies Allergy Verified 10/28/21 17:00 Surgical History H/O section History of orthopedic surgery S/p nephrectomy Status post laparoscopy Social History household members: spouse Smoking Status: Never smoker alcohol intake: never substance use type: does not use ROS ROS ED Review of Systems ROS Unobtainable: due to mental status EXAM Physical Exam Const Vital Signs: 11/05/21 13:37 11/05/21 13:38 11/05/21 13:48 Temperature 97.8 F Temperature Source Axillary Pulse Rate 98 95 Respiratory Rate 28 H 30 H Blood Pressure 111/77 111/77 Blood Pressure Mean 88 88 Pulse Ox 97 96 Oxygen Delivery Method Bi-pap Bi-pap Fraction of Inspired Oxygen (FIO2) 60 11/05/21 14:00 11/05/21 15:08 11/05/21 15:10 Temperature Temperature Source Pulse Rate 92 78 Respiratory Rate 32 H 14 Blood Pressure Blood Pressure Mean Pulse Ox 97 100 Oxygen Delivery Method Fraction of Inspired Oxygen (FIO2) 60 60 45 11/05/21 15:15 11/05/21 15:18 11/05/21 15:30 Temperature Temperature Source Pulse Rate 86 80 Respiratory Rate 18 28 H Blood Pressure 82/47 L 98/58 L 98/58 L Blood Pressure Mean 58 71 71 Pulse Ox 98 96 Oxygen Delivery Method Bi-pap Bi-pap Fraction of Inspired Oxygen (FIO2) 60 Positive well nourished, well developed and obese General Appearance ED: well developed Nutritional Appearance: obese HEENT Reports normocephalic, head/scalp atraumatic, TM's clear and moist mucous membranes Negative for trauma Tympanic Membrane ED: Yes TM's clear Eyes PERRL and EOMs intact bilaterally Neck no lymphadenopathy, supple and no JVD Resp Resp Narrative: Patient is tachypneic Auscultation: rales Cardio regular rate, regular rhythm and no murmurs GI normal to inspection, nondistended, normoactive bowel sounds and non-tender Palpation: soft Back/Spine no CVA tenderness and normal ROM Extremity normal to inspection General Extremety ED: Negative for edema General Extremity: Negative for edema Neuro CN's II-XII intact bilaterally Motor Exam: strength 5/5 throughout Psych mental status grossly normal Mood & Affect: Negative for depressed or tearful Skin no rashes or lesions noted and no wounds MDM MDM MDM Narrative Medical decision making narrative: ABG was obtained which shows a pH of 7.3 PCO2 of 85 p.o. of 114. White count 7.7 hemoglobin 9.4. BUN and creatinine 36 and 1.04. Glucose 156. Lactic acid is 0.4. Beta natruretic peptide 1834. CT of the brain was obtained which was negative for bleed or stroke. Please see radiologist read.. Interpretation of the chest x-ray is bilateral pleural ef fusions with CHF. Patient received a dose of Lasix. She has been on BiPAP since arrival. Plan is admission. The is waiting for her daughter to come to the can discuss CODE STATUS Lab Data Labs: Laboratory Results - last 24 hr 11/05/21 11/05/21 11/05/21 14:20 14:20 14:20 WBC 7.7 RBC 3.07 L Hgb 9.4 L Hct 32.6 L MCV 106.2 H MCH 30.6 MCHC 28.8 L RDW Std Deviation 59.6 H RDW Coeff of Sorin 15.2 H Plt Count 340 MPV 10.0 Immature Gran % (Auto) 1.700 H Neut % (Auto) 86.1 H Lymph % (Auto) 4.4 L [place] % (Auto) 7.0 Eos % (Auto) 0.4 Baso % (Auto) 0.4 Absolute Neuts (auto) 6.6 Absolute Lymphs (auto) 0.34 L Nucleated RBC % 0 Differential Comment SCANNED PT 12.4 INR 1.0 APTT 28.6 Sodium 142 Potassium 3.9 Chloride 98 Carbon Dioxide 39.0 H Anion Gap 5 BUN 36 H Creatinine 1.04 H Estim Creat Clear Calc 62.87 Est GFR (MDRD) Af Amer 66 Est GFR (MDRD) Non-Af 54 L BUN/Creatinine Ratio 34.6 H Glucose 156 H Lactic Acid Calcium 9.4 Total Bilirubin 0.30 AST 15 ALT 13 Alkaline Phosphatase 61 Troponin I High Sens 57 H B-Natriuretic Peptide Total Protein 6.1 L Albumin 2.3 L Globulin 3.8 Albumin/Globulin Ratio 0.6 L 11/05/21 11/05/21 14:20 14:20 WBC RBC Hgb Hct MCV MCH MCHC RDW Std Deviation RDW Coeff of Sorin Plt Count MPV Immature Gran % (Auto) Neut % (Auto) Lymph % (Auto) [place] % (Auto) Eos % (Auto) Baso % (Auto) Absolute Neuts (auto) Absolute Lymphs (auto) Nucleated RBC % Differential Comment PT INR APTT Sodium Potassium Chloride Carbon Dioxide Anion Gap BUN Creatinine Estim Creat Clear Calc Est GFR (MDRD) Af Amer Est GFR (MDRD) Non-Af BUN/Creatinine Ratio Glucose Lactic Acid 0.4 Calcium Total Bilirubin AST ALT Alkaline Phosphatase Troponin I High Sens B-Natriuretic Peptide 1834.7 H Total Protein Albumin Globulin Albumin/Globulin Ratio ABG Data ABG results: ABG 11/05/21 14:00 Specimen Type ART Sample Site L BRACHIAL pH 7.31 L Bicarbonate Actual 42.7 H Total CO2 45 Base Excess 16 H O2 Saturation 98 O2 % 60 ABG pCO2 85.3 H* ABG pO2 114 H Respiration Rate 14 O2 Delivery Device BIPAP Vent Mode AVAPS Tidal Volume 350 POC PEEP 6 Blood Gas Notified Whom Blood Gas Notified Time 1405 Radiography Diagnostic Testing: Clinical Impression(s) from Imaging Studies Brain CT 11/05/21 13:56 IMPRESSION: 1. Diffuse involutional changes and chronic microvascular deep white matter disease. 2. No mass, hemorrhage, or acute territorial infarct. 3. Marked soft tissue thickening likely inflammatory pannus at the C1-PROFILE SAW SETUP OPERATOR articulation with deformity of the anterior epidural space at the cervical medullary junction with displacement of the spinal cord. Electronically Signed: Ryan Mark MD at 16:03 EST Tel , Service support , Chest X-Ray 11/05/21 14:54 IMPRESSION: 1. Interval removal of ET tube and NG tube. LEFT PIC catheter projects in normal position. 2. No pneumothorax. 3. Stable cardiomegaly and vascular congestion. 4. Worsening bibasilar infiltrates with developing areas of consolidation and developing small to moderate-sized bilateral effusions. Electronically Signed: Ryan Mark MD at 16:45 EST Tel , Service support , EKG Initial EKG: Attestation: I personally reviewed and interpreted this EKG as follows: Comments: Normal sinus rhythm with a ventricular rate of 89 bpm Discharge Plan Dx/Rx/DC Orders Clinical Impression: Acute on chronic diastolic congestive heart failure, Acute respiratory failure with hypoxia, Encephalopathy acute Disposition Disposition: Acute Care [facility]
--- NOTE | 2021-11-05 15:31 | ED.RN ---
DR. LOPEZ AWARE OF LOW BP. ORDERS TO HOLD LASIX AT THIS TIME.
[2021-11-05 15:56] LABS: Blood Gas Specimen Type ART; FI02 60; Mode AVAPS; O2 Delivery Device BIPAP; PEEP 6; RR 14; SITE L BRACHIAL; Vt 350
[2021-11-05 15:57] LABS: Base Excess 16 mmol/L (-2 to +2); Bicarbonate 42.7 mmol/L (22-26); PO2 114 mmHG (75-100); Time Given 1405; Total Carbon Dioxide 45 mmol/L; pCO2 85.3 mmHg (35-45); pH 7.31 (7.35-7.45)
[2021-11-05 15:59] LABS: SO2 98 % (95-99)
[2021-11-05] MEDS: Furosemide 40 MG/4 ML Vial IV (16:07)
--- NOTE | 2021-11-05 17:27 | HP.PCM.HOS_ITS ---
HPI - General General Date of Admission: 11/05/21 Date of Service: 11/05/21 Chief Complaint: Unresponsiveness HPI Narrative ABRAN SAENZ, is a 81 F who presents from the TCU with unresponsiveness. Patient was admitted on 10/29/21 from the TCU where she was undergoing rehab after a lumbosacral surgery. She was discharged on 11/03/21 back to TCU. During this hospital stay, patient was treated for bilateral pleural effusions and acute h ypoxic respiratory failure as well as aspiration pneumonia. Patient was intubated for progressive respiratory failure and hypercapnia She also received antibiotics for aspiration pneumonia Today, patient was brought in unresponsive and hypoxic. Patient reportedly told her yesterday that she did not want to be intubated again. Patient has been found to be in hypercapnic respiratory failure again with pH of 7.31, PCO2 of 85.3. She is saturating well on BiPAP, FiO2 40%. Admitting chest x-ray shows vascular congestion with worsening bibasilar infiltrates with developing areas of consolidation. CT of the brain shows diffuse involutional changes. No acute abnormality [facility] Medical History (HFpEF) heart failure with preserved ejection fraction Acute congestive heart failure Arthrogryposis Arthrogryposis Bilateral leg weakness Cervical cord myelomalacia Cervical stenosis of spinal canal Cor pulmonale COVID-19 Diastolic CHF Hearing loss, left Hearing loss, right HLD (hyperlipidemia) HTN (hypertension) Hypoxia Kidney disease Lumbar stenosis Morbid obesity with BMI of 40.0-44.9, adult Non-smoker Over 65 years old Pneumonia PSVT (paroxysmal supraventricular tachycardia) Pulmonary hypertension Right heart failure S/p nephrectomy SBO (small bowel obstruction) Sepsis Shortness of breath Single kidney Wears hearing aid in both ears Home Medications aspirin 81 mg PO DAILY@0800 07/12/15 [History Last Taken 10/01/21] calcium carbonate-vitamin D3 1 tab PO DAILY 07/12/15 [History Last Taken 10/01/21] L.acidoph, paracasei,B. lactis 1 ea PO DAILY 03/22/19 [History Last Taken 10/01/21] acetaminophen 1,000 mg PO Q6H PRN PRN #0 tab 10/26/21 [Rx Last Taken Unknown] albuterol sulfate 2.5 mg INHALATION Q2H PRN PRN 10/28/21 [History Last Taken Unknown] ipratropium-albuterol 3 ml INHALATION Q6H PRN 10/28/21 [History Last Taken Un known] nitroglycerin 0.4 mg SUBLINGUAL Q5M PRN 10/28/21 [History Last Taken Unknown] nystatin 1 applic TOPICAL BID 10/28/21 [History Last Taken Unknown] senna-docusate sodium 1 tab PO BID 10/28/21 [History Last Taken Unknown] Mineral Oil/Petrolatum,White [Eucerin] 1 applic TOPICAL BID 11/03/21 [History Last Taken Unknown] amoxicillin-pot clavulanate [Augmentin] 1 tab PO BID 11/03/21 [History Last Taken Unknown] furosemide 40 mg PO DAILY #0 tab 11/03/21 [Rx Last Taken 10/01/21] gabapentin 100 mg PO TIDCM 11/03/21 [History Last Taken Unknown] menthol-zinc oxide [Calmoseptine] 1 applic TOPICAL BID 11/03/21 [History Last Taken Unknown] metoprolol tartrate 12.5 mg PO BID 11/03/21 [History Last Taken Unknown] Allergy/AdvReac Type Severity Reaction Status Date / Time No Known Allergies Allergy Verified 10/28/21 17:00 Surgical History H/O section History of orthopedic surgery S/p nephrectomy Status post laparoscopy Social History household members: spouse Smoking Status: Never smoker alcohol intake: never substance use type: does not use ROS Review of Systems ROS Unobtainable: due to encephalopathy Vital Signs Vital Signs Vital Signs: 11/05/21 13:37 11/05/21 13:38 11/05/21 13:48 Temperature 97.8 F Temperature Source Axillary Pulse Rate 98 95 Respiratory Rate 28 H 30 H Blood Pressure 111/77 111/77 Blood Pressure Mean 88 88 Pulse Ox 97 96 Oxygen Delivery Method Bi-pap Bi-pap Fraction of Inspired Oxygen (FIO2) 60 11/05/21 14:00 11/05/21 15:08 11/05/21 15:10 Temperature Temperature Source Pulse Rate 92 78 Respiratory Rate 32 H 14 Blood Pressure Blood Pressure Mean Pulse Ox 97 100 Oxygen Delivery Method Fraction of Inspired Oxygen (FIO2) 60 60 45 11/05/21 15:15 11/05/21 15:18 11/05/21 15:30 Temperature Temperature Source Pulse Rate 86 80 Respiratory Rate 18 28 H Blood Pressure 82/47 L 98/58 L 98/58 L Blood Pressure Mean 58 71 71 Pulse Ox 98 96 Oxygen Delivery Method Bi-pap Bi-pap Fraction of Inspired Oxygen (FIO2) 60 11/05/21 15:52 11/05/21 16:00 11/05/21 16:58 Temperature 98.1 F Temperature Source Axillary Pulse Rate 85 Respiratory Rate 23 H Blood Pressure 99/60 Blood Pressure Mean 73 Pulse Ox 95 96 93 Oxygen Delivery Method Room Air Fraction of Inspired Oxygen (FIO2) 45 40 11/05/21 17:12 11/05/21 17:18 Temperature 97.9 F Temperature Source Axillary Pulse Rate 83 Respiratory Rate 18 Blood Pressure 103/60 Blood Pressure Mean 74 Pulse Ox 95 97 Oxygen Delivery Method Bi-pap Bi-pap Fraction of Inspired Oxygen (FIO2) 40 Weight Weight: 90.8 kg Body Mass Index (BMI) 41.8 Physical Exam Narrative Physical exam: General: Lethargic, on BiPAP, HEENT: Atraumatic Oral: Moist Mucosa Neck: Supple Lungs: Diminished to auscultation Cardiovascular: HS I+II, regular, no murmurs Abdomen: Bowel Sounds Present, Soft, Non Tender Extremities: No edema Results Lab / Micro Data Result Diagrams: 11/05/21 14:20 11/05/21 14:20 Labs: Laboratory Results - last 24 hr 11/05/21 14:20: WBC 7.7, RBC 3.07 L, Hgb 9.4 L, Hct 32.6 L, MCV 106.2 H, MCH 30.6, MCHC 28.8 L, RDW Std Deviation 59.6 H, RDW Coeff of Sorin 15.2 H, Plt Count 340, MPV 10.0, Immature Gran % (Auto) 1.700 H, Neut % (Auto) 86.1 H, Lymph % (Auto) 4.4 L, Porter % (Auto) 7.0, Eos % (Auto) 0.4, Baso % (Auto) 0.4, Absolute Neuts (auto) 6.6, Absolute Lymphs (auto) 0.34 L, Nucleated RBC % 0, Differential Comment SCANNED 11/05/21 14:20: PT 12.4, INR 1.0, APTT 28.6 11/05/21 14:20: Sodium 142, Potassium 3.9, Chloride 98, Carbon Dioxide 39.0 H, Anion Gap 5, BUN 36 H, Creatinine 1.04 H, Estim Creat Clear Calc 62.87, Est GFR (MDRD) Af Amer 66, Est GFR (MDRD) Non-Af 54 L, BUN/Creatinine Ratio 34.6 H, Glucose 156 H, Calcium 9.4, Total Bilirubin 0.30, AST 15, ALT 13, Alkaline Phosphatase 61, Troponin I High Sens 57 H, Total Protein 6.1 L, Albumin 2.3 L, Globulin 3.8, Albumin/Globulin Ratio 0.6 L 11/05/21 14:20: Lactic Acid 0.4 11/05/21 14:20: B-Natriuretic Peptide 1834.7 H ABG Data ABG results: ABG 11/05/21 14:00 Specimen Type ART Sample Site L BRACHIAL pH 7.31 L Bicarbonate Actual 42.7 H Total CO2 45 Base Excess 16 H O2 Saturation 98 O2 % 60 ABG pCO2 85.3 H* ABG pO2 114 H Respiration Rate 14 O2 Delivery Device BIPAP Vent Mode AVAPS Tidal Volume 350 POC PEEP 6 Blood Gas Notified Whom Blood Gas Notified Time [address] 11/05/21 13:56 IMPRESSION: 1. Diffuse involutional changes and chronic microvascular deep white matter disease. 2. No mass, hemorrhage, or acute territorial infarct. 3. Marked soft tissue thickening likely inflammatory pannus at the C1-TRANSPLANT CASE MANAGER articulation with deformity of the anterior epidural space at the cervical medullary junction with displacement of the spinal cord. Electronically Signed: Ryan Mark MD at 16:03 EST Tel , Service support , Chest X-Ray 11/05/21 14:54 IMPRESSION: 1. Interval removal of ET tube and NG tube. LEFT PIC catheter projects in normal position. 2. No pneumothorax. 3. Stable cardiomegaly and vascular congestion. 4. Worsening bibasilar infiltrates with developing areas of consolidation and developing small to moderate-sized bilateral effusions. Electronically Signed: Ryan Mark MD at 16:45 EST Tel , Service support , Assessment & Plan Assessment/Plan (1) Acute respiratory failure with hypoxia: (2) Debility: (3) Aspiration pneumonia: QUALIFIERS: Aspiration pneumonia type: unspecified Laterality: bilateral Lung location: unspecified part of lung Qualified Code(s): J69.0 - Pneumonitis due to inhalation of food and vomit (4) Acute on chronic diastolic congestive heart failure: (5) Encephalopathy acute: PLAN: 1. Acute combined respiratory failure secondary to acute exacerbation of heart failure preserved EF/Obesity hypoventilation syndrome/LILA/bilateral pleural effusion/pulmonary hypertension /recent aspiration pneumonia Patient was discharged on 11/03/21 to TCU; intubated and extubated in the last admission Patient is currently unresponsive; she stated yesterday she did not want to be intubated again Saturating well on BiPAP Family leaning towards hospice but currently reluctant Admit to [facility], monitor overnight, hospice consult Patient will probably be made hospital by family in the morning 2. Acute metabolic encephalopathy secondary to #1 Patient is unresponsive Continue on BiPAP 3. Bilateral pleural effusion, transudative, CXR showed vascular congestion, worsening bibasilar infiltrates with developing areas of consolation and small to moderate sized bilateral effusion Patient's blood pressure remains relatively low Hold continue on Lasix 20 mg IV every 8h Strict I's and O 4. Recent aspiration pneumonia, discharged on Augmentin to TCU Continue Unasyn whilst n.p.o. 5. Recent dysphagia, patient to be kept n.p.o. on account of #2 6. I discussed and explained in details the various types of CODE STATUS-full code, DNR CCA, DNR CC. Patient's and daughter at the bedside were agreeable to DNR-CCA, no intubation. Time spent discussing CODE STATUS 18 minutes Charges/Coding Visit Charges Inpatient E&M: 87611 Init Hosp L3 Procedures Hospitalists Procedures: 92509 Advncd Care Plan 30 Min
--- NOTE | 2021-11-05 19:17 | PCS.PANDOC ---
PANDEMIC DOCUMENTATION INITIATED: Date: 11/05/2021 Time: 1800
[2021-11-05] MEDS: 0.9% Saline Lock 10 ML Syringe IV (22:45)
[2021-11-05] MEDS: Nystatin Powder 15gm Bottle 1 APPLIC TOPICAL (22:45)
[2021-11-05] MEDS: Furosemide 20 MG/2 ML VIAL IV (22:45)
[2021-11-06] MEDS: 0.9% Saline Lock 10 ML Syringe IV ×2 (04:58→09:22)
[2021-11-06] MEDS: Furosemide 20 MG/2 ML VIAL IV (04:58)
[2021-11-06] MEDS: Menthol/Lanolin/Calamine/Znox 113 GM Tube 1 APPLIC TOPICAL ×2 (05:13→09:02)
[2021-11-06 05:15] VITALS: BP 119/95; PULSE 82; RESP 18; TEMP 36.2; O2SAT 96
[2021-11-06 07:40] VITALS: PULSE 76; RESP 14; RESP 20; O2SAT 95
[2021-11-06] MEDS: Nystatin Powder 15gm Bottle 1 APPLIC TOPICAL (09:02)
[2021-11-06 09:05] VITALS: BP 131/70; PULSE 89; RESP 18; TEMP 36.2; O2SAT 100
[2021-11-06 09:39] LABS: Absolute Lymphocyte Count 0.66 X10^3/uL (0.83-4.51); Absolute Neutrophil Count 8.5 X10^3/uL (2.0-7.7); Basophil# 0.03 X10^3/uL; Basophil% 0.3 % (0-1); Eosinophil# 0.15 X10^3/uL; Eosinophils% 1.4 % (0-5); Hematocrit 31.5 % (37-47); Hemoglobin 9.4 g/dL (12.0-15.0); Lymphocyte # 0.66 X10^3/ul (0.83-4.51); Lymphocyte % 6.2 % (19-41); Mean Corp Hgb Conc 29.8 g/dL (32-36); Mean Platelet Vol. 10.2 fl (6.2-12.0); Monocyte% 10.4 % (0-10); NRBC Flagged by Analyzer 0 % (0-5); Neutrophil # 8.54 X10^3/uL (2.7-7.7); Neutrophil % 80.6 % (47-70); Platelet Count 320 K/mm3 (150-450); RBC Distribution Width CV 15.1 % (11.6-14.6); RBC Distribution Width SD 57.2 fl (35.1-43.9); Red Blood Count 3.03 M/mm3 (4.2-5.4); White Blood Count 10.6 K/mm3 (4.4-11.0)
--- NOTE | 2021-11-06 09:55 | CASEMGMT ---
Addendum entered by Nelia Tracey 11/06/21 11:18: Informed by nursing, Hospice to be in between 12-1p to meet with patient and . Addendum entered by Nelia Tracey 11/06/21 10:11: Clinical documentation faxed to [facility]. Original Note: SOCIAL WORK Informed by nursing, hospice consult. Met with patient and patient's in room. in agreement with hospice and requests referral to [facility]. Referral called and clinical information to be faxed. Hospice to call to set up meeting time. Staff updated. Plan: Hospice consulted, NORI Tracey, POKER PROP PLAYER, DAIRY HAND
[2021-11-06 10:09] LABS: ALB/GLOB Ratio 0.6 RATIO (0.9-2.4); AST(SGOT) 11 U/L (15-37); Alanine Aminotransfer ALT/SGPT 15 U/L (13-56); Albumin, Serum 2.3 g/dL (3.2-5.0); Alkaline Phosphatase 61 U/L (45-117); Anion Gap 7 (5-15); BUN 29 mg/dL (7-18); BUN/Creat Ratio 38.4 RATIO (10-20); Calcium,Total 8.8 mg/dL (8.5-10.1); Chloride 97 mmol/L (98-107); Creatinine, Serum 0.76 mg/dL (0.55-1.02); EST Glomerular Filtration Rate 79 mL/min (>60); Est Glom Filt Rate - Afr Amer 95 mL/min (>60); Estimated Creatinine Clearance 61.96 ml/min; Globulin 3.6 g/dL (2.2-4.2); Glucose 87 mg/dL (74-106); Protein, Total 5.9 g/dL (6.4-8.2); Sodium Level 147 mmol/L (136-145)
[2021-11-06] MEDS: Acetaminophen 325 MG Tablet 650 MG PO (11:05)
[2021-11-06 14:34] VITALS: BP 125/75; PULSE 97; RESP 18; TEMP 36.3; O2SAT 98
--- NOTE | 2021-11-06 14:44 | CASEMGMT ---
SOCIAL WORK Parish from Hospice met with patient and . Plan for IPU. D. Kyung, RN BUILDING, PANTOGRAPHER
--- NOTE | 2021-11-06 15:01 | NURSING ---
report called to DOLLY Blandon at inpatient hospice.
--- NOTE | 2021-11-06 16:03 | CHAPLAIN ---
Type of Pastoral Visit ___ Initial Visit _x__ Follow-up Visit ___ On-call Visit ___ General Patient Visit ___ Spiritual Assessment ___ Family Conference ___ Bereavement ___ Rapid Response ___ Code Blue ___ Other (describe below) Pastoral Care Referral From ___ Patient _x__ Family ___ Nurse ___ Physician ___ Lineman ___ Industrial Arts Teacher ___ Other (describe below) Sacrament/Intervention _x__ Active listening ___ Anointing ___ Hindu ___ Bereavement ___ Communion ___ Dulce exploration ___ ___ Life review _x__ Prayer ___ Reconciliation ___ Sacrament of Sick _x__ Supportive presence ___ Wedding ___ Other (describe below) Pastoral Comments patient and family have decided on hospice; pt is alert and talks about that decision; pt speaks of not seeing the grandchildren grow up and hoping for the extended family to be saved and come to heaven with recognition that saying pricila is also seeing family you have not seen in a long time; prayer and presence given; pt expresses gratitude for visits
--- NOTE | 2021-11-06 20:30 | PCM.DC.SUM ---
Providers Date of Admission: 11/05/21 Date of Discharge: 11/06/21 Primary Care Physician: Dr. Momo Carvajal MD Consultations 11/05/21 17:24 Consult: Hospice / Palliative Care Routine Consulting Provider: [facility] Reason for Consult: Resp failure EMERGENT Consult: No MD Notified: Yes Date Notified: 11/06/21 Time Notified: 10:35 Method of Notification: Answering Service Reason For Visit: RESP FAILURE Diagnosis Discharge Diagnosis (1) Acute respiratory failure with hypoxia: Status: Acute Code(s): J96.01 - Acute respiratory failure with hypoxia (2) Debility: Status: Acute Code(s): R53.81 - Other malaise (3) Aspiration pneumonia: Status: Acute Code(s): J69.0 - Pneumonitis due to inhalation of food and vomit Qualifiers: Aspiration pneumonia type: unspecified Laterality: bilateral Lung location: unspecified part of lung Qualified Code(s): J69.0 - Pneumonitis due to inhalation of food and vomit (4) Acute on chronic diastolic congestive heart failure: Status: Chronic Code(s): I50.33 - Acute on chronic diastolic (congestive) heart failure (5) Encephalopathy acute: Status: Acute Code(s): G93.40 - Encephalopathy, unspecified Plan: 1. Acute combined respiratory failure secondary to acute exacerbation of diastolic congestive heart failure-acute on chronic #2 acute metabolic encephalopathy secondary to #1 #3 bilateral pleural effusion-secondary to diastolic congestive heart failure #4 generalized debility Medications at Discharge Home Medications aspirin 81 mg PO DAILY@0800 07/12/15 calcium carbonate-vitamin D3 1 tab PO DAILY 07/12/15 L.acidoph, paracasei,B. lactis 1 ea PO DAILY 03/22/19 acetaminophen 1,000 mg PO Q6H PRN PRN #0 tab 10/26/21 albuterol sulfate 2.5 mg INHALATION Q2H PRN PRN 10/28/21 ipratropium-albuterol 3 ml INHALATION Q6H PRN 10/28/21 nitroglycerin 0.4 mg SUBLINGUAL Q5M PRN 10/28/21 nystatin 1 applic TOPICAL BID 10/28/21 senna-docusate sodium 1 tab PO BID 10/28/21 Mineral Oil/Petrolatum,White [Eucerin] 1 applic TOPICAL BID 11/03/21 amoxicillin-pot clavulanate [Augmentin] 1 tab PO BID 11/03/21 furosemide 40 mg PO DAILY #0 tab 11/03/21 gabapentin 100 mg PO TIDCM 11/03/21 menthol-zinc oxide [Calmoseptine] 1 applic TOPICAL BID 11/03/21 metoprolol tartrate 12.5 mg PO BID 11/03/21 Hospital Course Operations None Procedures None Summary of Care Provided Minutes Spent on Discharge: 31 Hospital Course: Patient is a 81-year-old white female who was brought to the emergency room department from TCU with complaints of difficulty swallowing and decreased level of consciousness. Chest x-ray was obtained in the emergency room which showed bilateral pleural effusions with CHF, patient was given a dose of Lasix and placed on BiPAP.Patient was found to be hypercapnic with pH of 7.31 and a PCO2 of 85.3. Patient was admitted to [place] [id number], patient was a DNR CC arrest without intubation, family decided to have hospice come in and consult on the patient. Hospice agreed to take the patient to the inpatient hospice facility. On 11/06/2021, patient was seen and examined: On examination she appeared and unwell, she does not appear to be in any distress. Vital signs as documented. Skin warm and dry and without overt rashes. Neck without JVD, thyroid appears normal, trachea is midline, neck is supple. Lungs clear, normal air movement was noted. Heart exam notable for regular rhythm, normal sounds and absence of murmurs, rubs or gallops. Abdomen unremarkable and without evidence of organomegaly, masses, or abdominal aortic enlargement, bowel sounds are present in all 4 quadrants, no abdominal tenderness was noted. Extremities nonedematous, no cyanosis was noted, no clubbing was noted. Neuro: Cranial nerves II through XII are grossly intact, no focal motor deficits were noted, sensation to light touch and pinprick is intact, motor exam 5/5 throughout. Psych: Patient was somnolent On 11/06/2021, patient was transferred to the inpatient hospice care center in terminal condition. Weight / BMI Weight Weight: 86.035 kg Body Mass Index (BMI) 39.6 ABG / Lab / Microbiology Data Result Diagrams: 11/06/21 09:23 11/06/21 09:23 Laboratory: Laboratory Results - last 24 hr 11/06/21 09:23: WBC 10.6, RBC 3.03 L, Hgb 9.4 L, Hct 31.5 L, MCV 104.0 H, MCH 31.0, MCHC 29.8 L, RDW Std Deviation 57.2 H, RDW Coeff of Sorin 15.1 H, Plt Count 320, MPV 10.2, Immature Gran % (Auto) 1.100 H, Neut % (Auto) 80.6 H, Lymph % (Auto) 6.2 L, [place] % (Auto) 10.4 H, Eos % (Auto) 1.4, Baso % (Auto) 0.3, Absolute Neuts (auto) 8.5 H, Absolute Lymphs (auto) 0.66 L, Nucleated RBC % 0 11/06/21 09:23: Sodium 147 H, Potassium 3.0 L, Chloride 97 L, Carbon Dioxide 43.0 H, Anion Gap 7, BUN 29 H, Creatinine 0.76, Estim Creat Clear Calc 61.96, Est GFR (MDRD) Af Amer 95, Est GFR (MDRD) Non-Af 79, BUN/Creatinine Ratio 38.4 H, Glucose 87, Calcium 8.8, Total Bilirubin 0.40, AST 11 L, ALT 15, Alkaline Phosphatase 61, Total Protein 5.9 L, Albumin 2.3 L, Globulin 3.6, Albumin/Globulin Ratio 0.6 L Meaningful Use Info Meaningful Use Diagnoses (Choose all that apply): None applicable Discharge Plan Admission Admit Date/Time: 11/05/21 16:56 Attending Provider: Catrachito Holley Primary Care Provider: Momo Carvajal Chi Consulting Providers: Rachelle Bergman ; Felix Franklin ; Es [place] ; Liza Rivera ; Mela Issa ; Reanna Kaba [employer] Discharge Orders/Prescriptions Prescriptions: No Action L.acidoph, paracasei,B. lactis 1 EACH capsule 1 ea PO DAILY RF: 0 acetaminophen 500 mg Tablet 1,000 mg PO Q6H PRN PRN (Reason: Pain Score 1-10) Qty: 0 RF: 0 ipratropium-albuterol 0.5 mg-3 mg(2.5 mg base)/3 mL Solution For Nebulization 3 ml INHALATION Q6H PRN (Reason: Shortness Of Breath) RF: 0 albuterol sulfate 2.5 mg /3 mL (0.083 %) Solution For Nebulization 2.5 mg INHALATION Q2H PRN PRN (Reason: Shortness Of Breath) RF: 0 nitroglycerin 0.4 mg Tablet, Sublingual 0.4 mg SUBLINGUAL Q5M PRN (Reason: Chest Pain) RF: 0 nystatin 100,000 unit/gram Powder 1 applic TOPICAL BID RF: 0 senna-docusate sodium Tablet 1 tab PO BID RF: 0 furosemide 40 MG tablet 40 mg PO DAILY Qty: 0 RF: 0 gabapentin 100 mg capsule 100 mg PO TIDCM RF: 0 amoxicillin-pot clavulanate [Augmentin] 875-125 mg tablet 1 tab PO BID RF: 0 metoprolol tartrate 25 mg tablet 12.5 mg PO BID RF: 0 menthol-zinc oxide [Calmoseptine] 0.44-20.6 % ointment 1 applic topical BID RF: 0 Mineral Oil/Petrolatum,White [Eucerin] 1 applic topical BID RF: 0 aspirin 81 MG tablet,chewable 81 mg PO DAILY@0800 RF: 0 calcium carbonate-vitamin D3 1 TAB tablet 1 tab PO DAILY RF: 0 Referrals / Follow Up: Momo Carvajal Chi, MD [Primary Care Provider] - Disposition Disposition (needs filled in before D/C Order can be placed): Hospice in Medical Facility Charges/Coding Visit Charges Inpatient E&M: 83225 Disch Hosp
== END 2021-11-06 16:40 | disposition hospice, inpatient (51) | DRG 189 ==
LOC: ED 17:02 → MS2 17:21
PROVIDERS: Admitting Provider Internal Medicine; Emergency Provider Emergency Medicine; PCP Family Medicine Geriatric Medicine; Visit Provider Internal Medicine
DX: J96.01 Acute respiratory failure with hypoxia (principal); I50.33 Acute on chronic diastolic (congestive) heart failure; J69.0 Pneumonitis due to inhalation of food and vomit; G93.41 Metabolic encephalopathy; Z68.41 Body mass index [BMI] 40.0-44.9, adult; E66.2 Morbid (severe) obesity with alveolar hypoventilation; J96.02 Acute respiratory failure with hypercapnia; I11.0 Hypertensive heart disease with heart failure; I50.82 Biventricular heart failure; R53.81 Other malaise; I27.29 Other secondary pulmonary hypertension; E78.5 Hyperlipidemia, unspecified; Q68.8 Other specified congenital musculoskeletal deformities; R13.10 Dysphagia, unspecified; H91.93 Unspecified hearing loss, bilateral; Z79.82 Long term (current) use of aspirin; Z79.899 Other long term (current) drug therapy; Z90.5 Acquired absence of kidney
CPT/HCPCS: 36592; 36600; 70450; 71045; 80053; 82803; 83605; 83880; 84484; 85025; 85610; 85730; 87040; 93005; 94002; 94003; 99284; J7050; A4216; J0295; J1940